=== PATIENT | female | born 1955 | race Caucasian/White ===

== ENCOUNTER 2022-04-13 06:58 | Inpatient (IN) | payer OTHER, SELFPAY ==
[2022-04-12] MEDS: ERTAPENEM 1 GM inj IVP (09:00)
[2022-04-13] VITALS (25 sets, daily range): BP systolic 74–104; BP diastolic 37–68; PULSE 77–99; RESP 12–20; TEMP 36.5–37.3; O2SAT 89–97; BMI 19.9
[2022-04-13] MEDS: LACTATED RINGERS 1000 ML 1,000 ML 100 ML IV ×4 (07:00→18:22)
[2022-04-13] MEDS: SODIUM CHLORIDE 0.9 % (FLUSH) 10 ML SYRINGE IVF (08:04)
--- NOTE | 2022-04-13 08:50 | P.GSOP_ITS ---
Operative Note Date of procedure: 04/13/22 Type of Procedure: 1. Laparoscopic right hemicolectomy. 2. Laparoscopic takedown of hepatic flexure. 3. Extensive laparoscopic lysis of adhesions. Procedure Description: After discussing the risks and benefits of the procedure, the patient signed informed consent.? The operative site was marked and the patient was brought to the operating room and placed on the operating table in supine position.? Care was taken to pad the patient's pressure points.?? The patient was then intubated by anesthesia.??Newton catheter was placed under sterile conditions. The operative site was then prepped and draped in the usual sterile fashion.? A time-out was then performed. A 5-mm laparoscopy port was placed in the left upper quadrant guided by a 5-mm laparoscope placed into a translucent trochar. Passage through the layers of the abdominal wall was visualized with the laparoscope. A pneumoperitoneum was established. A 30-degree 5-mm laparoscope was advanced into the abdomen. The abdomen was briefly surveyed, and adhesions were noted of the right colon to the lateral abdominal wall and omentum to the lower abdominal wall. A 12-mm port and a 5-mm port were placed in the left low quadrant and suprapubically, respectively, under direct visualization by laparoscope. Left upper quadrant entrance port was then examined intraabdominally by placing the camera through the left lower quadrant port and no intraabdominal injury was seen. An additional 5 mm port was placed in the right upper abdomen under direct visualization. I first started with lysis of adhesions. Omentum adherent to the lower abdomi nal wall in the midline and on the left was taken down with Harmonic scalpel. The right colon was adherent to the right side of the abdominal wall as well and those adhesions were taken down with Harmonic scalpel. The cecum was identified and retracted right laterally. Patient's transverse colon was redundant and was adherent to the cecum and ascending colon with adhesions. Those adhesions were taken down with Metzenbaum scissors and Harmonic scalpel to mobilize the transverse colon of the cecum and ascending colon. Tattoo was noted in the proximal transverse from previous polypectomy. The terminal ileum was tightly adherent to the lateral abdominal wall and those adhesions were taken down with Metzenbaum scissors and Harmonic scalpel. Care was taken not to injure the right ureter. The ureter was visualized and was away from out dissection. Once I was able to clearly identify the cecum and the right colon, I proceeded with the medial to lateral dissection. The cecum was grasped and retracted towards the abdominal wall. The ileocolic vascular pedicle was identified and skeletonized from the mesenteric fat with Harmonic scalpel. The ileocolic vessels were then stapled with a vascular staple load of Endo-SAMANTHA stapler. No bleeding was seen from the staple line. Dissection was then carried towards the liver. Colonic mesentery was divided with Harmonic scalpel until the inferior portion of the hepatic flexure of the colon was reached. We then proceeded with mobilizing the colon from the liver. Multiple dense adhesions were seen from patient's prior laparoscopic cholecystectomy. The transverse colon and hepatic flexure were reflected caudad and adhesions were taken down with Harmonic scalpel. Duodenum was identified during this dissection and care was taken not to injure it. When the transverse colon and hepatic flexure were fairly mobile and dissected of retroperitoneum, we then extended our dissection from the hepatic flexure towards the cecum along the lateral abdominal wall. This was done with Harmonic scalpel. When the colon was mobile, I turned my attention to the terminal ileum. The terminal ileum was somewhat adherent to the lateral abdominal wall but the rest of the small intestine was fairly free and mobile. Enough length of the terminal ileum was seen to be available for extracorporeal anastomosis, and we decided to proceed extra abdominally. The patient was flattened and a right paramedian incision was made with a scalpel. Anterior fascia was divided with cautery. Rectus muscle was retracted medially and laterally and about a third of visualized muscle was divided with cautery. Posterior sheath and peritoneum were grasped and the abdomen was entered with cautery. The abdomen was then deflated. The Franck retractor was placed into the incision. The dissected right colon and cecum were exteriorized. The right colon was very mobile. However, the terminal ileum was taut and appeared to be adherent to the lateral abdominal wall. We attempted to mobilize the terminal ileum from the lateral abdominal wall through the paramedian incision but that was difficult due to the location of the incision and the location of the adhesions. We elected to use a GelPort to cover our paramedian incision and proceed again with intra-abdominal lysis of adhesions. The Gelport was placed over the Franck retractor on the right side. Abdomen was insufflated. The small bowel was examined and terminal ileum appeared to be tethered by peritoneal adhesions. These adhesions extended towards the right fallopian tube and into the pelvis. Those adhesions were taken down mostly with Metzenbaum scissors but also with Harmonic scalpel. Care was taken to avoid creating injury to the right ureter. Small bowel mesentery near the cecum was also tethering the terminal ileum. A 5 mm clip was used on the patient's side and this mesentery was divided with Harmonic scalpel. Overall lysis of adhesions during this case took over 1.5 hours. The abdomen was deflated and the cecum was again exteriorized through the right- sided paramedian incision. Adequate length of the terminal ileum was now seen. We then proceeded with extracorporeal [id number] functional end-to-end anastomosis. Small bowel mesentery was divided with clamps and Vicryl ties. A blue load of SAMANTHA stapler was used to divide the terminal ileum and ascending colon at the level of hepatic flexure. The colon was divided distal to the colonic tattoo. Hepatic flexure of the colon and distal terminal ileum was then lined up for anastomosis. An enterotomy was made near the staple line with cautery. A colotomy was also made near the staple line with cautery. The handles of the SAMANTHA stapler were advanced into the small intestine and colon. The [id number] anastomosis was then made with the 100 blue load of SAMANTHA stapler. The staple line was examined from the inside and no active bleeding was seen. The common enterotomy was then closed with interrupted 3-0 silk pop- off sutures using Lembert sutures. A crotch stitch was placed with 3-0 silk suture as well. The anastomosis was palpated and was patent. Anastomosis appeared well perfused. The anastomosis was then placed into the abdomen. All the dirty instruments and towels were removed. The Franck retractor was removed. The surgeon and assistants changed gloves to new gloves. We then proceeded with abdominal closure. The peritoneum of paramedian incision was closed with 2 running 0-0 Vicryl sutures. The anterior fascia was then closed with 2 running 0-0 Maxon sutures. Moist Ray-Danielle was placed into the right paramedian incision. The abdomen was then insufflated again. The anastomosis was examined intra-abdominally. No bleeding was identified from anastomosis. It appeared to be well perfused. The abdomen was irrigated and no significant bleeding was noted in the surgical site. Omentum was placed over the right-sided abdomen and over anastomosis. The fascia of the left lower quadrant 12 mm port incision was closed with 0-0 Vicryl sutures with Geovanny- Vitaly needle under direct visualization. The 5 mm ports were removed under direct visualization and pneumoperitoneum was reduced through a left upper quadrant incision. The moist Ray-Danielle was removed from the right paramedian incision. The dermis of the right paramedian incision was closed with interrupted 3-0 Vicryl sutures. The skin of all incisions was closed with 4-0 Monocryl stitches. The right paramedian incision was covered with gauze and tape. All counts were correct at the end of the case. The patient tolerated this procedure well and was transferred to PACU in stable condition. Findings: Multiple adhesions of omentum, right colon, and ascending colon to transverse colon. Anesthesia: GETA Surgeon: Magda Hartman MD Estimated blood loss (mL): 50 Condition: stable Disposition: PACU
--- NOTE | 2022-04-13 09:11 | P.NB_ITS ---
Nerve Block Nerve Block Time Seen by Provider: 08:55 Date Seen: 04/13/22 Type of block requested by surgeon for post-operative analgesia: TAP Side: bilateral Time out performed: Yes Verification of patient name: Yes Verification of date of : Yes Site marking: site marked Name of person performing procedure: nicole Assistants, if any: Arnie Continuous monitoring Was continuous monitoring of O2 sat, B/P, director of cardiac rehabilitation, recorded every 15 minutes?: Yes Procedure Checklist: sterile prep and needles Ultrasound guided. Images saved: Yes Medications given in 5ml increments after negative aspiration: Marcaine %: 0.25 mL: 30 Needle gauge: 22 and Exparel mL: 10 Patient tolerated procedure well: Yes
[2022-04-13] MEDS: BUPIVACAINE 0.25% 30 ML INJECTION (09:30)
--- NOTE | 2022-04-13 10:25 | SUR.OPER ---
FAMILY UPDATED HOURLY
--- NOTE | 2022-04-13 10:43 | SUR.OPER ---
ULTRASOUND-GUIDED BLOCK PERFORMED PRIOR TO START OF PROCEDURE PER ANESTHESIA
--- NOTE | 2022-04-13 13:52 | W.ANESCHARGE ---
Anesthesia Charges Start Date/Time Anesthesia Start Date: 04/13/22 Anesthesia Start Time: 08:45 Stop Date/Time Anesthesia Stop Date: 04/13/22 Anesthesia Stop Time: 13:50 Summary Emergency: No
[2022-04-13] MEDS: fentaNYL 100 MCG/2 ML inj 50 MCG IVP (14:17)
[2022-04-13] MEDS: PHENYLEPHRINE 100 MCG/ML SYRINGE IVP (14:43)
--- NOTE | 2022-04-13 15:17 | PC.NURSE ---
Pt arrived via hospital bed to room 259 s/p laparoscopic hemicolectomy with Dr. Hartman at 15:05 pm. Pt awake, alert, oriented and sitting up in bed, oxygen @ 3L/NC. Initial VS taken and pt rating her pain 5 out of 10. It was 7 out of 10 prior to 2 doses of fentanyl given by WIRE THREADER prior to transport to med/surg. Bedside report given to Melva METCALF for evening shift. Dtrs Jenni and Enrique present at bedside. Newton to DD with clear yellow urine draining into the bag. Pt remains NPO. Swabs and mouth moisturizer provided for dry mouth as a comfort measure per Melva Metz RN. Pt states her dtr Patience will be coming later to spend the night with her in the hospital. Continue post op plan of care.
--- NOTE | 2022-04-13 15:22 | SUR.PHASEI ---
PATIENT MET PACU DISCHARGE CRITERIA PER ANESTHESIA. ANESTHESIA AWARE OF LOW BP, INSTRUCTED TO GIVE DOSE OF PHENYLEPHRINE; DOSE GIVEN IN PACU
--- NOTE | 2022-04-13 15:29 | PC.NURSE ---
IRRIGATED WITH 0.9%NACL
[2022-04-13] MEDS: HYDROmorphone 0.5 mg/0.5 ml inj IVP ×3 (15:47→21:10)
[2022-04-13] MEDS: BUDESONIDE 0.5 MG/2ML NEB NEB (18:24)
[2022-04-13] MEDS: IPRAT-ALBUT 0.5-2.5 MG/3 ML NEB 1 NEB IH ×2 (18:24→21:12)
[2022-04-13] MEDS: NICOTINE 21 MG PATCH 1 PATCH TRANSDERMA (19:29)
--- NOTE | 2022-04-13 22:46 | P.IMCN_ITS ---
Date of Consult Patient: [facility] Patient Consult date: 04/13/22 Requesting Physician: General Surgery Primary Care Provider: Robert Riley MD Consult Narrative Reason for consult: Help manage COPD postoperatively Narrative: Bianca Wang is a 66 year old woman who undergoes a hemicolectomy electively today due to unresectable cecal polyps by endoscopic means. Her general surgeon requests help from the hospitalist in managing the patient's COPD postoperatively. Patient takes her prescribed COPD medications as noted below. Additionally she uses as needed albuterol metered-dose inhaler. Noteworthy is that she does not use an information systems administrator with her metered dose inhaler. Uses her rescue haler 1-3 times daily. Continues to smoke 1/2 pack of cigarettes daily. Has smoked for decades. Acknowledges baseline dyspnea with moderate exertion. Has increased shortness of breath on hot humid days as well. No recent respiratory illness. Denies change in her baseline level of cough. Denies chest heaviness, pressure, tightness, or pain. No recent fevers, rigors, diaphoresis. Review of Systems Status of ROS: Reports: 10 or more systems reviewed and unremarkable except as noted in History and below [facility] Medical History (Updated 04/13/22 @ 22:58 by Haider Puri MD) Chronic obstructive pulmonary disease Depression Gastroesophageal reflux disease History of migraine Hyperlipidemia Polyp of ascending colon Tobacco dependence Surgical History H/O: section History of umbilical hernia repair S/P tubal ligation Status post appendectomy (2004) Status post laparoscopic cholecystectomy (03/07/18) Family History Father Type 2 diabetes mellitus Brother Type 2 diabetes mellitus Social History Narrative: Single, 3 kids, retired 1/2 ppd smoker Social EtOH retired Smoking Status: Current every day smoker What tobacco products do you use: cigarettes Do you use any of these nicotine containing products: None How often do you have a drink containing alcohol: monthly or less How many standard drinks containing alcohol do you have on a typical day: 1 or 2 AUDIT-C Alcohol total score: 1 Non-prescribed substance use: denies use Caffeine: Yes service: No Meds Home Medications and Allergies Home Medications Medication Instructions Recorded Confirmed Type albuterol sulfate 90 mcg/actuation 2 inh INHALATION Q4-6H PRN 03/24/22 04/12/22 History aerosol inhaler celecoxib 200 mg capsule 200 mg PO BID 03/24/22 04/13/22 History duloxetine 60 mg capsule,delayed 60 mg PO DAILY 03/24/22 04/13/22 History release ergocalciferol (vitamin D2) 1,250 50,000 unit PO .Once Weekly cap 03/24/22 04/13/22 History mcg (50,000 unit) capsule famotidine 20 mg tablet 20 mg PO BID PRN tab 03/24/22 04/13/22 History fluoxetine 40 mg capsule 40 mg PO DAILY 03/24/22 04/13/22 History fluticasone 500 mcg-salmeterol 50 1 inh INHALATION BID 03/24/22 04/12/22 History mcg/dose blistr powdr for inhalation lorazepam 1 mg tablet 1 mg PO BID PRN tab 03/24/22 04/13/22 History tiotropium bromide 18 mcg capsule 18 mcg INHALATION DAILY 03/24/22 04/13/22 History with inhalation device Allergies Allergy/AdvReac Type Severity Reaction Status Date / Time cefadroxil Allergy Severe anaphylacic Verified 04/13/22 07:13 shock bupropion Allergy Intermediate increased Verified 04/13/22 07:13 depression and shaking Erythromycin Allergy Intermediate stomach Uncoded 04/13/22 07:13 upset Exam Narrative: Exam Narrative: I examined the patient in her hospital room postoperatively. She is resting in her hospital bed with the head of the bed elevated about 45?. She holds a pillow to her abdomen. Her cough is shallow. Does have loose sounding airway material. Appears thin. Bony prominences of face and chest. At rest she is in no acute distress. Alert, oriented to self, place, time, situation. Hard of hearing in left ear compared to the right. Lungs with decreased breath sounds in the bases and prolonged expiratory phase and scattered rhonchi and wheezing without rales. No CVA tenderness. Heart tones with regular rhythm, normal S1-S2. Abdomen is thin and quiet. Extremities without edema. Able to transfer self from semi recumbent position to sitting at the side of the bed. 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 Const: Vital Signs, click to edit/add: Vital Signs - 24 hr 04/13/22 07:47 04/13/22 13:47 04/13/22 13:55 Temperature 99.2 F 98.9 F Pulse Rate 99 90 92 Pulse Rate [Left P ulse Oximeter] Respiratory Rate 20 18 14 Blood Pressure 100/68 104/59 L 96/42 L Blood Pressure [Le ft Arm] Pulse Oximetry 97 90 04/13/22 14:00 04/13/22 14:10 04/13/22 14:15 Temperature Pulse Rate 95 90 89 Pulse Rate [Left P ulse Oximeter] Respiratory Rate 14 12 14 Blood Pressure 89/37 L 85/49 L 89/50 L Blood Pressure [Le ft Arm] Pulse Oximetry 89 92 92 04/13/22 14:20 04/13/22 14:25 04/13/22 14:30 Temperature Pulse Rate 87 86 87 Pulse Rate [Left P ulse Oximeter] Respiratory Rate 14 14 16 Blood Pressure 85/51 L 84/48 L 87/49 L Blood Pressure [Le ft Arm] Pulse Oximetry 90 90 91 04/13/22 14:35 04/13/22 14:40 04/13/22 14:45 Temperature Pulse Rate 82 83 80 Pulse Rate [Left P ulse Oximeter] Respiratory Rate 14 14 12 Blood Pressure 84/49 L 74/47 L 89/53 L Blood Pressure [Le ft Arm] Pulse Oximetry 89 94 94 04/13/22 14:50 04/13/22 15:00 04/13/22 15:15 Temperature 97.7 F Pulse Rate 82 81 Pulse Rate [Left P ulse Oximeter] 80 Respiratory Rate 12 14 14 Blood Pressure 81/49 L Blood Pressure [Le ft Arm] 82/50 L Pulse Oximetry 93 93 04/13/22 15:30 04/13/22 15:45 04/13/22 16:00 Temperature Pulse Rate Pulse Rate [Left P ulse Oximeter] 79 79 81 Respiratory Rate 14 14 14 Blood Pressure Blood Pressure [Le ft Arm] 90/44 L 84/49 L 89/51 L Pulse Oximetry 92 92 92 04/13/22 16:15 04/13/22 16:30 04/13/22 17:00 Temperature 97.9 F Pulse Rate Pulse Rate [Left P ulse Oximeter] 77 79 79 Respiratory Rate 14 14 14 Blood Pressure Blood Pressure [Le ft Arm] 88/51 L 86/53 L 88/57 L Pulse Oximetry 95 92 92 04/13/22 17:30 Temperature Pulse Rate Pulse Rate [Left P ulse Oximeter] 77 Respiratory Rate 14 Blood Pressure Blood Pressure [Le ft Arm] 95/57 L Pulse Oximetry 95 Labs Labs: I reviewed the preoperative laboratory studies. White count was 9.7, hemoglobin 14.2, hematocrit 44, platelet count 293. She had an entirely normal comprehensive metabolic panel. SARS-CoV-2 PCR was negative. Assessment and Plan Assessment and plan (1) Polyp of ascending colon: Problem comment: Unresectable endoscopically. Status post right hemicolectomy 04/13/2022. Status: Acute (2) Chronic obstructive pulmonary disease: Problem comment: not on O2 Status: Acute Assessment and Plan: Will follow with General surgery while patient is in hospital. Continue with her Spiriva and Advair inhalers. Changed from albuterol inhaler p.r.n. to albuterol nebulizer scheduled q.i.d. and p.r.n. while in hospital. Pulmonary hygiene efforts with assistance from respiratory therapy. (3) Tobacco dependence: Status: Acute Assessment and Plan: Nicotine patch and nicotine inhalers while in hospital. Patient pre contemplative regarding smoking cessation. (4) Gastroesophageal reflux disease: Status: Acute (5) Generalized anxiety disorder: Status: Acute (6) Fibromyalgia: Status: Acute (7) Irritable bowel syndrome: Status: Acute Plan 1. Reviewed with patient and 2 daughters. Answered their questions. They are agreeable.
[2022-04-14] VITALS (7 sets, daily range): BP systolic 92–103; BP diastolic 50–58; PULSE 86–101; RESP 16–20; TEMP 36.4–36.9; O2SAT 90–98
[2022-04-14] MEDS: HYDROmorphone 0.5 mg/0.5 ml inj IVP ×6 (00:02→20:05)
[2022-04-14] MEDS: LACTATED RINGERS 1000 ML 1,000 ML 100 ML IV ×3 (03:46→23:42)
[2022-04-14] MEDS: ALBUTEROL SULFATE 2.5 MG/3 ML VIAL.NEB NEB (05:57)
[2022-04-14] MEDS: ONDANSETRON 2 MG/ML inj IVP ×2 (06:02→15:34)
[2022-04-14 07:25] LABS: Chloride* 103 mmol/L (96-114); Potassium* 4.1 mmol/L (3.6-5.1); Sodium* 134 mmol/L (135-149)
[2022-04-14 07:26] LABS: Basophils Percent Auto 0.1 % (0.0-3.0); Eosinophils Percent Auto 0.1 % (0.0-7.0); Hematocrit 36.3 % (33.0-51.0); Hemoglobin* 11.7 gm/dL (12.0-16.0); Immature Granulocytes Abs Auto 0.03 K/uL (0.00-0.30); Lymphocytes Percent Auto 19.7 % (20-44); Mean Corpuscular HGB Conc 32 gm/dL (32-36); Mean Corpuscular Hemoglobin 30 pg (26-34); Mean Corpuscular Volume 94 fL (80-100); Monocytes Percent Auto 6.2 % (0.0-11.0); Neutrophils Percent Auto 73.7 % (42.0-72.0); Platelet Count* 228 K/uL (140-440); RDW Coefficient of Variation % 13.9 % (11.5-15.5); Red Blood Count 3.87 m/uL (4.00-5.20); White Blood Count* 13.75 K/uL (4.50-11.00)
[2022-04-14 07:27] LABS: Creatinine* 0.7 mg/dL (0.5-1.5); Estimated Glomerular Filt Rate 94 ml/min
[2022-04-14 07:28] LABS: Blood Urea Nitrogen* 12 mg/dL (7-30); Carbon Dioxide* 29 mmol/L (20-32); Glucose* 131 mg/dL (60-115)
[2022-04-14 07:31] LABS: Slide Review Reflex No
[2022-04-14] MEDS: DULOXETINE 30 MG CAPSULE DR 60 MG PO (10:12)
[2022-04-14] MEDS: FLUOXETINE HCL 20 MG CAPSULE 40 MG PO (10:13)
[2022-04-14] MEDS: IPRAT-ALBUT 0.5-2.5 MG/3 ML NEB 1 NEB IH ×3 (10:13→21:05)
--- NOTE | 2022-04-14 10:42 | PM.IMPN1 ---
Progress Note: A&P Assessment and plan (1) Polyp of ascending colon: Problem details: Unresectable endoscopically. Status post right hemicolectomy 04/13/2022. Status: Acute Assessment and Plan: Appears to be healing well will continue follow general surgery making sure that she is has adequate DVT prophylaxis. (2) Chronic obstructive pulmonary disease: Problem details: not on O2 at home. Status: Acute Assessment and Plan: Will continue to wean down her oxygen and provide good pulmonary toilet. (3) Tobacco dependence: Status: Acute Assessment and Plan: Continue nicotine supplementation. (4) Gastroesophageal reflux disease: Status: Acute Assessment and Plan: No complaints today. (5) Generalized anxiety disorder: Status: Acute Assessment and Plan: Anxiety appears to be under good control. (6) Fibromyalgia: Status: Acute Assessment and Plan: Continue to manage as an outpatient. (7) Irritable bowel syndrome: Status: Acute Assessment and Plan: No complaints today. Subjective Time Seen by Provider: 10:42 Date Seen: 04/14/22 Interval history: Patient is a 66-year-old woman who underwent elective right hemicolectomy secondary to unresectable cecal polyps. By all accounts he seems to be doing fairly well. She does have underlying COPD is on 3 L of oxygen which I do think we can wean down. She is receiving nicotine supplementation. She has no GERD her anxiety complaints. Overall she is making good progress. Exam Narrative: Exam Narrative: EXAM GENERAL: Patient appears comfortable and well. EYES: No scleral icterus. LYMPH: No supraclavicular or cervical lymphadenopathy. SKIN: Visible skin seen during exam normal or with benign process only. EXT: No dependent lower extremity pedal edema. HEART: Regular rate and rhythm with no murmurs, rubs, or gallops. LUNGS: Clear to auscultation bilaterally with no crackles or wheezes. ABD: Hypoactive bowel sounds with incisions appearing to be clean and dry. PSYCH: Good eye contact, speech is not pressured. Const: Vital Signs, click to edit/add: Vital Signs - 24 hr 04/13/22 13:47 04/13/22 13:55 04/13/22 14:00 Temperature 98.9 F Pulse Rate 90 92 95 Pulse Rate [Left P ulse Oximeter] Respiratory Rate 18 14 14 Blood Pressure 104/59 L 96/42 L 89/37 L Blood Pressure [Le ft Arm] Pulse Oximetry 97 90 89 07/19/22 14:10 04/13/22 14:15 04/13/22 14:20 Temperature Pulse Rate 90 89 87 Pulse Rate [Left P ulse Oximeter] Respiratory Rate 12 14 14 Blood Pressure 85/49 L 89/50 L 85/51 L Blood Pressure [Le ft Arm] Pulse Oximetry 92 92 90 04/13/22 14:25 04/13/22 14:30 04/13/22 14:35 Temperature Pulse Rate 86 87 82 Pulse Rate [Left P ulse Oximeter] Respiratory Rate 14 16 14 Blood Pressure 84/48 L 87/49 L 84/49 L Blood Pressure [Le ft Arm] Pulse Oximetry 90 91 89 04/13/22 14:40 04/13/22 14:45 04/13/22 14:50 Temperature Pulse Rate 83 80 82 Pulse Rate [Left P ulse Oximeter] Respiratory Rate 14 12 12 Blood Pressure 74/47 L 89/53 L 81/49 L Blood Pressure [Le ft Arm] Pulse Oximetry 94 94 93 04/13/22 15:00 04/13/22 15:15 04/13/22 15:30 Temperature 97.7 F Pulse Rate 81 Pulse Rate [Left P ulse Oximeter] 80 79 Respiratory Rate 14 14 14 Blood Pressure Blood Pressure [Le ft Arm] 82/50 L 90/44 L Pulse Oximetry 93 92 04/13/22 15:45 04/13/22 16:00 04/13/22 16:15 Temperature Pulse Rate Pulse Rate [Left P ulse Oximeter] 79 81 77 Respiratory Rate 14 14 14 Blood Pressure Blood Pressure [Le ft Arm] 84/49 L 89/51 L 88/51 L Pulse Oximetry 92 92 95 04/13/22 16:30 04/13/22 17:00 04/13/22 17:30 Temperature 97.9 F Pulse Rate Pulse Rate [Left P ulse Oximeter] 79 79 77 Respiratory Rate 14 14 14 Blood Pressure Blood Pressure [Le ft Arm] 86/53 L 88/57 L 95/57 L Pulse Oximetry 92 92 95 04/13/22 19:00 04/13/22 20:00 04/13/22 23:00 Temperature 98.4 F Pulse Rate Pulse Rate [Left P ulse Oximeter] 82 81 89 Respiratory Rate 14 16 16 Blood Pressure Blood Pressure [Le ft Arm] 85/50 L 94/52 L 101/50 L Pulse Oximetry 95 95 95 04/14/22 03:00 Temperature 98.2 F Pulse Rate Pulse Rate [Left P ulse Oximeter] 93 Respiratory Rate 16 Blood Pressure Blood Pressure [Le ft Arm] 94/52 L Pulse Oximetry 96 Labs Labs: Laboratory Results - last 24 hr 04/14/22 04/14/22 06:26 06:26 WBC 13.75 H RBC 3.87 L Hgb 11.7 L Hct 36.3 MCV 94 MCH 30 MCHC 32 RDW Coeff of Riri 13.9 Plt Count 228 Neut % (Auto) 73.7 H Lymph % (Auto) 19.7 L [place] % (Auto) 6.2 Eos % (Auto) 0.1 Baso % (Auto) 0.1 Neut # (Auto) 10.10 H Lymph # (Auto) 2.70 [place] # (Auto) 0.90 Eos # (Auto) 0.00 Baso # (Auto) 0.00 Abs Immat Gran (auto) 0.03 Sodium 134 L Potassium 4.1 Chloride 103 Carbon Dioxide 29 BUN 12 Creatinine 0.7 Estimated Creat Clear 44.80 Estimated GFR 94 Glucose 131 H Calcium 8.0 L
[2022-04-14] MEDS: LORazepam 1 MG TABLET PO (11:30)
--- NOTE | 2022-04-14 13:13 | PM.GSPN ---
Subjective Subjective Date Seen: 04/14/22 Interval history: Patient is doing well. She complains of dominant pain but that is controlled with pain medication. She had some nausea but no vomiting. She did not ambulate today. Her blood pressure was low normal throughout the night. She made adequate amount of urine. Exam Narrative: Exam Narrative: Abdomen: Soft, not distended, tender to palpation Throughout, there is ecchymosis inferior to suprapubic and left lower quadrant incisions as well as right paramedian incision. There is no expanding hematoma. Const: Vital Signs, click to edit/add: Vital Signs - 24 hr 04/13/22 13:47 04/13/22 13:55 04/13/22 14:00 Temperature 98.9 F Pulse Rate 90 92 95 Pulse Rate [Left P ulse Oximeter] Respiratory Rate 18 14 14 Blood Pressure 104/59 L 96/42 L 89/37 L Blood Pressure [Le ft Arm] Pulse Oximetry 97 90 89 04/13/22 14:10 04/13/22 14:15 04/13/22 14:20 Temperature Pulse Rate 90 89 87 Pulse Rate [Left P ulse Oximeter] Respiratory Rate 12 14 14 Blood Pressure 85/49 L 89/50 L 85/51 L Blood Pressure [Le ft Arm] Pulse Oximetry 92 92 90 04/13/22 14:25 04/13/22 14:30 04/13/22 14:35 Temperature Pulse Rate 86 87 82 Pulse Rate [Left P ulse Oximeter] Respiratory Rate 14 16 14 Blood Pressure 84/48 L 87/49 L 84/49 L Blood Pressure [Le ft Arm] Pulse Oximetry 90 91 89 04/13/22 14:40 04/13/22 14:45 04/13/22 14:50 Temperature Pulse Rate 83 80 82 Pulse Rate [Left P ulse Oximeter] Respiratory Rate 14 12 12 Blood Pressure 74/47 L 89/53 L 81/49 L Blood Pressure [Le ft Arm] Pulse Oximetry 94 94 93 04/13/22 15:00 04/13/22 15:15 04/13/22 15:30 Temperature 97.7 F Pulse Rate 81 Pulse Rate [Left P ulse Oximeter] 80 79 Respiratory Rate 14 14 14 Blood Pressure Blood Pressure [Le ft Arm] 82/50 L 90/44 L Pulse Oximetry 93 92 04/13/22 15:45 04/13/22 16:00 04/13/22 16:15 Temperature Pulse Rate Pulse Rate [Left P ulse Oximeter] 79 81 77 Respiratory Rate 14 14 14 Blood Pressure Blood Pressure [Le ft Arm] 84/49 L 89/51 L 88/51 L Pulse Oximetry 92 92 95 04/13/22 16:30 04/13/22 17:00 04/13/22 17:30 Temperature 97.9 F Pulse Rate Pulse Rate [Left P ulse Oximeter] 79 79 77 Respiratory Rate 14 14 14 Blood Pressure Blood Pressure [Le ft Arm] 86/53 L 88/57 L 95/57 L Pulse Oximetry 92 92 95 04/13/22 19:00 04/13/22 20:00 04/13/22 23:00 Temperature 98.4 F Pulse Rate Pulse Rate [Left P ulse Oximeter] 82 81 89 Respiratory Rate 14 16 16 Blood Pressure Blood Pressure [Le ft Arm] 85/50 L 94/52 L 101/50 L Pulse Oximetry 95 95 95 04/14/22 03:00 Temperature 98.2 F Pulse Rate Pulse Rate [Left P ulse Oximeter] 93 Respiratory Rate 16 Blood Pressure Blood Pressure [Le ft Arm] 94/52 L Pulse Oximetry 96 Labs/Imaging Labs Labs: Hemoglobin 11.7. Creatinine normal. Progress Note: A&P Assessment and plan (1) Polyp of ascending colon: Problem details: 66-year-old female Status post right hemicolectomy 04/13/2022 POD 1. Status: Acute Assessment and Plan: Patient is doing well. We will DC her Newton catheter. She can take ice chips for comfort. I asked the patient to ambulate today at least 3 times. I will not put her no Lovenox today since she has prominent ecchymosis near her abdominal wall incisions. Her blood pressure normally runs systolic 90-110 so her blood pressure is are not out of the norm. She made adequate amount of urine and her creatinine is normal today. Will continue with NPO status until her nausea improves. (2) Chronic obstructive pulmonary disease: Problem details: not on O2 at home. Status: Acute (3) Tobacco dependence: Status: Acute (4) Gastroesophageal reflux disease: Status: Acute (5) Generalized anxiety disorder: Status: Acute (6) Fibromyalgia: Status: Acute (7) Irritable bowel syndrome: Status: Acute
--- NOTE | 2022-04-14 16:19 | PC.NURSE ---
Pt has supportive daughters at bedside. Oxygen tapered to 2L/NC on day shift. Eval by Dr. Hartman who ordered Ativan 1mg BID for pt's chronic anxiety. BP's remain low normal. Nursing will continue to monitor BP, pt denies dizziness, CP or SOB. Pt walked in hallway with oxygen @2L/NC this afternoon. Pt remains NPO, ice chips sparingly. Pt has hearing impairment in the left ear. Please see eMar for medications provided to this patient for pain management. Report to Melva SILVEIRA for evening shift. Newton discontinued. Pt has not voided since catheter removed. Oncoming shift will monitor pt for urine output.
[2022-04-14] MEDS: NICOTINE 21 MG PATCH 1 PATCH TRANSDERMA (18:28)
[2022-04-14] MEDS: FLUTICASONE PROPION SALMETEROL 1 EACH IH (21:05)
--- NOTE | 2022-04-14 22:37 | PC.NURSE ---
Shift [id number]- Patient rates pain at 6/10 throughout shift (I always rate it a 6), though she does state pain is increased with movement. Pain appears well controlled with PRN pain medications and ice. She is up with assist of 1 and gait belt, steady. She is voiding small amounts tonight. Remains on oxygen via nasal cannula, requiring 1.5-2.5L to maintain saturations.
[2022-04-15] MEDS: HYDROmorphone 0.5 mg/0.5 ml inj IVP ×4 (00:05→11:46)
[2022-04-15] MEDS: ONDANSETRON 2 MG/ML inj IVP ×2 (00:06→08:44)
[2022-04-15] MEDS: LORazepam 1 MG TABLET PO (00:07)
[2022-04-15 03:00] VITALS: BP 101/54; PULSE 98; RESP 20; TEMP 36.9; O2SAT 93
--- NOTE | 2022-04-15 06:27 | PC.NURSE ---
END OF SHIFT NOTE: PT PLEASANT AND COOPERATIVE. SOFT BP'S; ASYMPTOMATIC. VSS. PT DENIES CHEST PAIN, SOB, N/V. PT C/O PAIN 5-6/10 AT ABDOMINAL INCISION SITES, THAT IS RELIEVED WITH THE ADMINISTRATION OF DILAUDID. ABDOMINAL DRESSING IN PLACE, 3 LAP SITES INTACT WITH STERI STRIPS. PT NPO. CHIPS ALLOWED, WATER TO SWISH AND SPIT. PT DENIES PASSING GAS. BS HYPOACTIVE. PT AMBULATES WITH GB AND A1/SBA. [place] IN LEFT EAR. PT ON 2.5L VIA NC TO MAINTAIN SATS >90%. EXPIRATORY WHEEZES NOTED THROUGHOUT ANTERIOR AND POSTERIOR LOBES.
[2022-04-15 07:00] VITALS: BP 97/57; PULSE 95; PULSE 97; RESP 20; TEMP 36.8; O2SAT 92
[2022-04-15 07:19] LABS: Basophils Percent Auto 0.1 % (0.0-3.0); Eosinophils Percent Auto 0.1 % (0.0-7.0); Hematocrit 33.6 % (33.0-51.0); Hemoglobin* 10.6 gm/dL (12.0-16.0); Immature Granulocytes Abs Auto 0.07 K/uL (0.00-0.30); Lymphocytes Percent Auto 19.4 % (20-44); Mean Corpuscular HGB Conc 32 gm/dL (32-36); Mean Corpuscular Hemoglobin 30 pg (26-34); Mean Corpuscular Volume 96 fL (80-100); Monocytes Percent Auto 5.6 % (0.0-11.0); Neutrophils Percent Auto 74.2 % (42.0-72.0); Platelet Count* 197 K/uL (140-440); RDW Coefficient of Variation % 14.2 % (11.5-15.5); Red Blood Count 3.52 m/uL (4.00-5.20); White Blood Count* 11.53 K/uL (4.50-11.00)
[2022-04-15 07:44] LABS: Albumin* 3.3 g/dL (3.3-5.0)
[2022-04-15 07:45] LABS: Chloride* 102 mmol/L (96-114); Potassium* 3.9 mmol/L (3.6-5.1); Sodium* 134 mmol/L (135-149)
[2022-04-15 07:47] LABS: Aspartate Amino Transferase* 42 U/L (12-35); Bilirubin Total* 0.3 mg/dL (0.1-1.5); Carbon Dioxide* 32 mmol/L (20-32); Creatinine* 0.7 mg/dL (0.5-1.5); Estimated Glomerular Filt Rate 94 ml/min; Total Protein* 6.2 g/dL (6.0-8.3)
[2022-04-15 07:48] LABS: Alanine Aminotransferase* 23 U/L (4-35); Alkaline Phosphatase* 72 U/L (40-150); Blood Urea Nitrogen* 14 mg/dL (7-30); Calcium* 8.1 mg/dL (8.4-10.6); Glucose* 122 mg/dL (60-115)
[2022-04-15 08:20] LABS: Slide Review Reflex No
[2022-04-15] MEDS: DULOXETINE 30 MG CAPSULE DR 60 MG PO (08:39)
[2022-04-15] MEDS: FLUOXETINE HCL 20 MG CAPSULE 40 MG PO (08:39)
[2022-04-15] MEDS: IPRAT-ALBUT 0.5-2.5 MG/3 ML NEB 1 NEB IH ×4 (08:40→21:20)
[2022-04-15] MEDS: FLUTICASONE PROPION SALMETEROL 1 EACH IH ×2 (08:57→21:19)
--- NOTE | 2022-04-15 09:09 | P.IMPN_ITS ---
Progress Note: A&P Assessment and plan (1) Polyp of ascending colon: Problem details: 66-year-old female Status post right hemicolectomy 04/13/2022 POD 1. Status: Acute Assessment and Plan: Will continue follow general surgery providing supportive care. (2) Chronic obstructive pulmonary disease: Problem details: not on O2 at home. Status: Acute Assessment and Plan: Will continue pulmonary toilet and her outpatient medications. Patient is receiving nicotine supplementation. (3) Tobacco dependence: Status: Acute Assessment and Plan: Again continue nicotine supplementation. (4) Gastroesophageal reflux disease: Status: Acute Assessment and Plan: No complaints patient is doing well. (5) Generalized anxiety disorder: Status: Acute Assessment and Plan: Continue as per outpatient. (6) Fibromyalgia: Status: Acute Assessment and Plan: Continue as per outpatient. (7) Irritable bowel syndrome: Status: Acute Subjective Time Seen by Provider: 09:09 Date Seen: 04/15/22 Interval history: Patient is a 66-year-old woman who underwent elective right hemicolectomy secondary to unresectable cecal polyps. By all accounts he seems to be doing fairly well. We have been asked to see her to help with her COPD. She times can be on room air and at times needs 3 L of oxygen to maintain her saturation. Patient does not take supplemental oxygen at home. She has had no chest pain no cough no shortness of breaths in the hospital. Exam Narrative: Exam Narrative: EXAM GENERAL: Patient appears comfortable and well. EYES: No scleral icterus. LYMPH: No supraclavicular or cervical lymphadenopathy. SKIN: Visible skin seen during exam normal or with benign process only. EXT: No dependent lower extremity pedal edema. HEART: Regular rate and rhythm with no murmurs, rubs, or gallops. LUNGS: Clear to auscultation bilaterally with no crackles or wheezes. ABD: Soft, non tender, non distended. Wound is sterilely dressed. PSYCH: Good eye contact, speech is not pressured. Const: Vital Signs, click to edit/add: Vital Signs - 24 hr 04/14/22 13:00 04/14/22 15:15 04/14/22 19:03 Temperature 98.2 F 98.5 F 97.6 F Pulse Rate [Left P ulse Oximeter] 101 H 93 99 Respiratory Rate 20 16 18 Blood Pressure [Le ft Arm] 103/54 L 96/54 L 92/50 L Blood Pressure [Ri ght Arm] Pulse Oximetry 93 91 90 04/14/22 23:35 04/14/22 23:40 04/15/22 03:00 Temperature 98.5 F 98.4 F Pulse Rate [Left P ulse Oximeter] 99 99 98 Respiratory Rate 20 20 20 Blood Pressure [Le ft Arm] Blood Pressure [Ri ght Arm] 95/58 L 101/54 L Pulse Oximetry 97 93 Labs Labs: Laboratory Results - last 24 hr 04/15/22 04/15/22 06:28 06:28 WBC 11.53 H RBC 3.52 L Hgb 10.6 L Hct 33.6 MCV 96 MCH 30 MCHC 32 RDW Coeff of Riri 14.2 Plt Count 197 Neut % (Auto) 74.2 H Lymph % (Auto) 19.4 L [place] % (Auto) 5.6 Eos % (Auto) 0.1 Baso % (Auto) 0.1 Neut # (Auto) 8.60 H Lymph # (Auto) 2.20 [place] # (Auto) 0.60 Eos # (Auto) 0.00 Baso # (Auto) 0.00 Abs Immat Gran (auto) 0.07 Sodium 134 L Potassium 3.9 Chloride 102 Carbon Dioxide 32 BUN 14 Creatinine 0.7 Estimated Creat Clear 44.80 Estimated GFR 94 Glucose 122 H Calcium 8.1 L Total Bilirubin 0.3 AST 42 H ALT 23 Alkaline Phosphatase 72 Total Protein 6.2 Albumin 3.3
[2022-04-15] MEDS: LACTATED RINGERS 1000 ML 1,000 ML 100 ML IV (10:09)
[2022-04-15 10:36] VITALS: BP 97/57; PULSE 97; RESP 20; TEMP 36.8; O2SAT 97
--- NOTE | 2022-04-15 14:32 | PM.GSPN ---
Subjective Subjective Date Seen: 04/15/22 Interval history: Patient is doing well. She had brownish stool and passed some gas with that stool. She has not passed gas beyond that. She has intermittent nausea but no vomiting. She usually feels nauseous when she is having Dilaudid administered. She ambulated yesterday and today. Exam Narrative: Exam Narrative: Abdomen is soft, not distended, incisions are covered with Steri-Strips. There is significant mindy-incisional ecchymosis surrounding the right paramedian incision and lower abdominal incisions. Const: Vital Signs, click to edit/add: Vital Signs - 24 hr 04/14/22 15:15 04/14/22 19:03 04/14/22 23:35 Temperature 98.5 F 97.6 F 98.5 F Pulse Rate [Left P ulse Oximeter] 93 99 99 Respiratory Rate 16 18 20 Blood Pressure [Le ft Arm] 96/54 L 92/50 L Blood Pressure [Ri ght Arm] 95/58 L Pulse Oximetry 91 90 97 04/14/22 23:40 04/15/22 03:00 04/15/22 07:00 Temperature 98.4 F 98.3 F Pulse Rate [Left P ulse Oximeter] 99 98 95 Respiratory Rate 20 20 20 Blood Pressure [Le ft Arm] 97/57 L Blood Pressure [Ri ght Arm] 101/54 L Pulse Oximetry 93 92 04/15/22 10:36 Temperature 98.2 F Pulse Rate [Left P ulse Oximeter] 97 Respiratory Rate 20 Blood Pressure [Le ft Arm] 97/57 L Blood Pressure [Ri ght Arm] Pulse Oximetry 97 Labs/Imaging Labs Labs: Hemoglobin down to 10.6 from 11. Progress Note: A&P Assessment and plan (1) Polyp of ascending colon: Problem details: 66-year-old female Status post right hemicolectomy 04/13/2022 POD 2. Status: Acute Assessment and Plan: Overall patient is doing well. Her intervals between the pain medication are enlarging. Her blood pressure is low normal and that is normal for her. She continues to require oxygen 1-2 L to maintain her sats above 88. She does have a history of COPD. Her hemoglobin went down to 10.6 today from 11 yesterday. This is most likely a combination of acute blood loss anemia and dilution since patient received over 3 L of fluid yesterday. Will advance her diet to clear liquids. I discussed with the patient that she should advance slow since she has not been consistently passing gas. I will put her on Lovenox for DVT prophylaxis. I did discuss with the patient that one of my partners will be seeing her over the weekend. Pathology was discussed with the patient. Patient had 2 sessile serrated adenomas in her cecum and at appendiceal orifice but no evidence of cancer.
[2022-04-15] MEDS: LACTATED RINGERS 1000 ML 1,000 ML 75 ML IV ×2 (15:08→21:20)
[2022-04-15 16:00] VITALS: BP 99/57; PULSE 101; RESP 20; TEMP 36.7; O2SAT 92
[2022-04-15] MEDS: OxyCODONE/APAP 5-325 TABLET PO ×2 (16:30→23:40)
[2022-04-15] MEDS: ENOXAPARIN 40 MG/0.4 ML INJ SUBCUT (16:32)
[2022-04-15] MEDS: NICOTINE 21 MG PATCH 1 PATCH TRANSDERMA ×2 (18:26→18:30)
[2022-04-15 19:45] VITALS: BP 90/50; PULSE 100; RESP 20; TEMP 36.7; O2SAT 91
--- NOTE | 2022-04-15 20:21 | PC.NURSE ---
[id number]: Radha did well today with walks in halls. Monitored O2 during walk, sats 83-86% on 3L; Dr. Almazan updated. Attempted to titrate to 1L during the day, however periods when she needed 1-2L/NC to maintain sats >88%. Denies feeling symptomatic during times when O2 drops into 70s. Daughter and granddaughter visited today, pt. appreciated. Able to sleep off and on. Pain 2-6/10, switched to orals which seem to be helpful today. Ice to op site, dressing C/D/I. Denies calf pain, but notes overall soreness. Pt. was encouraged to get up and move about w/assist to help with this. Bowel sounds hypoactive this AM, but she did have two small liquid/sedimentary stools this shift. Some old blood noted during first BM; Dr. Hartman aware. IVF decreased to 75mL/hr, diet advanced to clears, tolerating well. Lung sounds wheezy and tight, receiving scheduled nebs w/relief.
--- NOTE | 2022-04-15 22:23 | PC.NURSE ---
Shift note 19-23: Pt alert, SBA to BR. Rating abd pain 2/10 taking PRN Percocet along w/ actice ice to op site, inc's x4 intact w/ steristrips, tolerating clears w/o nausea.
[2022-04-15 23:00] VITALS: BP 98/59; PULSE 91; RESP 20; TEMP 36.5; O2SAT 97
[2022-04-16] VITALS (8 sets, daily range): BP systolic 92–103; BP diastolic 52–60; PULSE 92–108; RESP 14–20; TEMP 36.6–36.7; O2SAT 86–97
[2022-04-16] MEDS: LACTATED RINGERS 1000 ML 1,000 ML 50 ML IV (00:20)
[2022-04-16] MEDS: MAG HYDROX/ALUMINUM HYD/SIMETH 30 ML ORAL.SUSP 15 ML PO (02:13)
[2022-04-16] MEDS: ALBUTEROL SULFATE 2.5 MG/3 ML VIAL.NEB NEB (05:03)
--- NOTE | 2022-04-16 06:29 | NUTR.NU ---
: Very [place]. SBA, calls for assistance prior to getting out of bed to help with IV pole and NC. Tolerating clears, pt states she cannot wait to advance her diet. Pt c/o abd pain 02/02, see emar. Maalox given at HS d/t c/o indigestion. Pt requiring 2L O2 via NC to maintain sats >88%. With activity pt desats to mid 80s, rebounds quickly with rest. Occasional productive cough, encouraged to use IS, PRN neb given. Continues to have soft pressures, 90s/50s, denies dizziness. Bruising noted around 3 lap and incision sites, active ice placed. Granddaughter at bedside overnight. ?
[2022-04-16] MEDS: OMEPRAZOLE 20 MG CAPSULE DR 40 MG PO ×2 (07:42→16:03)
[2022-04-16] MEDS: HYDROmorphone 0.5 mg/0.5 ml inj IVP (07:52)
[2022-04-16] MEDS: ONDANSETRON 2 MG/ML inj IVP ×2 (07:53→21:22)
[2022-04-16] MEDS: DULOXETINE 30 MG CAPSULE DR 60 MG PO (09:56)
[2022-04-16] MEDS: FLUOXETINE HCL 20 MG CAPSULE 40 MG PO (09:57)
--- NOTE | 2022-04-16 10:11 | PM.IMPN1 ---
Progress Note: A&P Assessment and plan (1) Polyp of ascending colon: Problem details: 66-year-old female Status post right hemicolectomy 04/13/2022 POD 2. Status: Acute Assessment and Plan: Will continue symptomatic treatment follow-up with General surgery. With regards to respiratory status I have again visit with respiratory therapy and they did begin seeing her today. I suspect she will need a home O2 at the time of discharge. Will also be reviewing her outpatient COPD regimen. Subjective Time Seen by Provider: 10:11 Date Seen: 04/16/22 Interval history: Patient is a a 66-year-old woman who is recovering from a right hemicolectomy for unresectable colon polyps. We were initially asked to see the patient she has underlying COPD. Patient is on her outpatient regiment of medications and states she feels well. Her recovery from surgery is slow but she is beginning to pass a small amount of gas. With regards to respiratory status patient cannot maintain her saturation anywhere close to 90% with any activity. I did have respiratory therapy do an assessment today and they do feel it she will be needing home oxygen and I would suspect she has been hypoxic for at home for quite some time. Exam Narrative: Exam Narrative: EXAM GENERAL: Patient appears comfortable and well. EYES: No scleral icterus. LYMPH: No supraclavicular or cervical lymphadenopathy. SKIN: Visible skin seen during exam normal or with benign process only. EXT: No dependent lower extremity pedal edema. HEART: Regular rate and rhythm with no murmurs, rubs, or gallops. LUNGS: Decreased breath sounds bilaterally. ABD: Soft, non tender, non distended. PSYCH: Good eye contact, speech is not pressured. Const: Vital Signs, click to edit/add: Vital Signs - 24 hr 04/15/22 10:36 04/15/22 16:00 04/15/22 19:45 Temperature 98.2 F 98.1 F 98.1 F Pulse Rate [Left P ulse Oximeter] 97 101 H 100 Respiratory Rate 20 20 20 Blood Pressure [Le ft Arm] 97/57 L 99/57 L 90/50 L Pulse Oximetry 97 92 91 04/15/22 23:00 04/16/22 03:00 04/16/22 07:00 Temperature 97.7 F 97.8 F 98.1 F Pulse Rate [Left P ulse Oximeter] 91 99 95 Respiratory Rate 20 20 14 Blood Pressure [Le ft Arm] 98/59 L 98/53 L 97/56 L Pulse Oximetry 97 90 86 L Labs Labs: Laboratory Results - last 24 hr 04/13/22 12:25 Surg PTH (Off-Site) See Scanned Report
--- NOTE | 2022-04-16 10:41 | PM.GSPN ---
Subjective Subjective Date Seen: 04/16/22 Interval history: Patient is doing ok this morning. When I saw her she was sitting up in bed and had some moderate pain of her abdomen. She does think this is mainly incisional. She is feeling hungry this morning. Denies passing gas but has had multiple loose stools. Reports some nausea with her pain meds and is intermittently burping. No vomiting. Has been up walking the halls. Exam Narrative: Exam Narrative: General: Alert and oriented, no acute distress and nontoxic in appearance. Abdomen: Significant ecchymoses surrounding incisions, which are appropriately tender to palpation. No significant distention abdomen is soft. Steri-Strips clean/dry/intact. Respiratory: Nasal cannula in place, equal breath rise bilaterally CV: Regular rhythm and rate, some mild tachycardia with movement. Const: Vital Signs, click to edit/add: Vital Signs - 24 hr 04/15/22 16:00 04/15/22 19:45 04/15/22 23:00 Temperature 98.1 F 98.1 F 97.7 F Pulse Rate [Left P ulse Oximeter] 101 H 100 91 Respiratory Rate 20 20 20 Blood Pressure [Le ft Arm] 99/57 L 90/50 L 98/59 L Pulse Oximetry 92 91 97 04/16/22 03:00 04/16/22 07:00 Temperature 97.8 F 98.1 F Pulse Rate [Left P ulse Oximeter] 99 95 Respiratory Rate 20 14 Blood Pressure [Le ft Arm] 98/53 L 97/56 L Pulse Oximetry 90 86 L Documenting provider has reviewed patient's vital signs: yes Labs/Imaging Labs Labs: No new labs Progress Note: A&P Assessment and plan (1) Polyp of ascending colon: Problem details: 66-year-old female Status post right hemicolectomy 04/13/2022 POD 3. Status: Acute Assessment and Plan: Patient is stable this morning. She is having a moderate amount of incisional pain, which is likely secondary to the associated ecchymoses. She is also reporting feeling hungry with evidence of return of bowel function. I did caution the patient to go very slow with diet and we will begin with some sips of coffee and cream of wheat this morning. Patient with nasal cannula in place to maintain oxygenation, this is likely secondary to atelectasis with patient also having a known history of COPD. Would encourage use of IS as well as ambulation. She is not yet ready for discharge, but hopefully will progress towards discharge in the next 2-3 days. -full liquids, will reassess before any advancement further of diet -IV and p.o. pain meds as needed -encourage ambulation, SCDs and Lovenox for DVT prophylaxis
[2022-04-16] MEDS: OxyCODONE/APAP 5-325 TABLET PO ×2 (12:14→21:28)
[2022-04-16] MEDS: guaiFENesin 100 MG/ML CUP PO (12:16)
[2022-04-16] MEDS: IPRAT-ALBUT 0.5-2.5 MG/3 ML NEB 1 NEB IH ×2 (15:46→21:30)
[2022-04-16] MEDS: ENOXAPARIN 40 MG/0.4 ML INJ SUBCUT (16:03)
[2022-04-16] MEDS: LORazepam 1 MG TABLET PO (16:47)
[2022-04-16] MEDS: NICOTINE 21 MG PATCH 1 PATCH TRANSDERMA (18:53)
--- NOTE | 2022-04-16 19:01 | PC.NURSE ---
[id number] Pt IV fluids dc'd per , pt saline locked, IV site asymptomatic. bilat foot non-pitting edema, SCDs and TEDs applied. Pt concerned about edema and oxygen saturation dropping below 80's while ambulating. Pt states I dont want to do anything that keeps from going home Discussed and educated on using IS, Aerobika and some medication to thin mucus to help with the O2 saturations.
[2022-04-16] MEDS: FLUTICASONE PROPION SALMETEROL 1 EACH IH (21:30)
[2022-04-17] VITALS (9 sets, daily range): BP systolic 96–103; BP diastolic 52–64; PULSE 66–99; RESP 16–20; TEMP 36.6–37; O2SAT 91–96
[2022-04-17] MEDS: OxyCODONE/APAP 5-325 TABLET PO ×3 (06:41→21:02)
[2022-04-17] MEDS: OMEPRAZOLE 20 MG CAPSULE DR 40 MG PO (06:48)
--- NOTE | 2022-04-17 07:25 | PC.NURSE ---
Shift Note : Pt pleasant and cooperative, BP remains low but Pt denies s/s. O2 saturation levels continue to drop into the low 80s with activity. At rest Pt maintains O2 sats >90% on 1.5L NC. LS clear in all lobes, BS active in all quads. Pt reports passing flatus as well as a productive cough. Abd is bruised on left side, lap incisions are CDI and open to air.
[2022-04-17] MEDS: IPRAT-ALBUT 0.5-2.5 MG/3 ML NEB 1 NEB IH ×4 (09:05→21:02)
[2022-04-17] MEDS: FLUTICASONE PROPION SALMETEROL 1 EACH IH ×2 (09:05→21:03)
[2022-04-17] MEDS: FLUOXETINE HCL 20 MG CAPSULE 40 MG PO (09:05)
[2022-04-17] MEDS: DULOXETINE 30 MG CAPSULE DR 60 MG PO (09:05)
--- NOTE | 2022-04-17 10:58 | PM.GSPN ---
Subjective Subjective Date Seen: 04/17/22 Interval history: Patient is doing okay this morning. Her main complaint is swelling of her legs. She does feel like she is requiring less oxygen. She has not yet ambulated this morning. She was able to sleep overnight. Her abdominal pain is slowly improving. She did tolerate some cream of wheat yesterday, but has not passed gas since yesterday. No bowel movement for 2 days. She is burping quite a bit and has some nausea with pain medications, denies any emesis. Exam Narrative: Exam Narrative: General: Alert and oriented, no acute distress. Lying comfortably in bed Respiratory: Patient is on 1.5 L nasal cannula, equal breath rise bilaterally CV: Regular rhythm and rate, well perfused Abdomen: Mild distention, soft, incisions are covered with Steri-Strips. Surrounding ecchymoses is stable. Abdomen is diffusely tender to palpation with no guarding or rebound. Const: Vital Signs, click to edit/add: Vital Signs - 24 hr 04/16/22 11:00 04/16/22 15:00 04/16/22 19:27 Temperature 98.1 F 98.1 F 98.1 F Pulse Rate [Left P ulse Oximeter] 108 H 107 H 92 Respiratory Rate 16 16 Blood Pressure [Le ft Arm] 103/60 95/57 L 99/58 L Pulse Oximetry 95 97 93 04/16/22 20:12 04/16/22 22:25 04/17/22 03:00 Temperature 97.8 F Pulse Rate [Left P ulse Oximeter] 102 H 98 Respiratory Rate 16 16 16 Blood Pressure [Le ft Arm] 92/52 L Pulse Oximetry 94 94 04/17/22 08:25 Temperature 98.2 F Pulse Rate [Left P ulse Oximeter] 66 Respiratory Rate 16 Blood Pressure [Le ft Arm] 102/56 L Pulse Oximetry 96 Documenting provider has reviewed patient's vital signs: yes Labs/Imaging Labs Labs: Repeat labs pending this morning. Imaging Imaging: No new imaging. Progress Note: A&P Assessment and plan (1) Polyp of ascending colon: Problem details: 66-year-old female Status post right hemicolectomy 04/13/2022 POD 4. Status: Acute Assessment and Plan: Patient has been slow to progress postoperatively. Recommend a suppository this morning, to stimulate a bowel movement. Will also transition patient back to NPO status, okay for sips and ice chips. She continues to remain on oxygen, although she is requiring less compared to yesterday. Vital signs stable and afebrile. Dr. Bowles to evaluate patient this morning. She is recommending an ECHO to evaluate for any component of CHF and fluid status. Will also obtain a CBC and BMP this morning. -NPO, okay for sips and ice chips. Patient is requesting coffee, which she is okay to have sips of. -IV fluids -encourage ambulation, SCDs and Lovenox for DVT prophylaxis -respiratory therapy consulted, continues to need oxygen -hospitalist following, will follow-up on echo and labs Please call with any acute clinical changes, questions or concerns.
[2022-04-17 11:18] LABS: Albumin* 3.2 g/dL (3.3-5.0); Basophils Absolute Auto 0.01 K/uL (0.00-0.30); Basophils Percent Auto 0.1 % (0.0-3.0); Chloride* 97 mmol/L (96-114); Eosinophils Percent Auto 1.3 % (0.0-7.0); Hematocrit 33.5 % (33.0-51.0); Hemoglobin* 10.6 gm/dL (12.0-16.0); Immature Granulocytes Abs Auto 0.02 K/uL (0.00-0.30); Lymphocytes Absolute Auto 2.08 K/uL (0.90-2.90); Lymphocytes Percent Auto 27.3 % (20-44); Mean Corpuscular HGB Conc 32 gm/dL (32-36); Mean Corpuscular Hemoglobin 30 pg (26-34); Mean Corpuscular Volume 95 fL (80-100); Neutrophils Absolute Auto 4.94 K/uL (1.7-7.0); Platelet Count* 203 K/uL (140-440); RDW Coefficient of Variation % 13.3 % (11.5-15.5); Red Blood Count 3.53 m/uL (4.00-5.20); White Blood Count* 7.61 K/uL (4.50-11.00)
[2022-04-17 11:19] LABS: Potassium* 3.4 mmol/L (3.6-5.1); Sodium* 131 mmol/L (135-149)
[2022-04-17 11:21] LABS: Aspartate Amino Transferase* 28 U/L (12-35); Bilirubin Total* 0.4 mg/dL (0.1-1.5); Carbon Dioxide* 32 mmol/L (20-32); Creatinine* 0.7 mg/dL (0.5-1.5); Estimated Glomerular Filt Rate 94 ml/min; Total Protein* 5.9 g/dL (6.0-8.3)
[2022-04-17 11:22] LABS: Alanine Aminotransferase* 23 U/L (4-35); Alkaline Phosphatase* 71 U/L (40-150); Blood Urea Nitrogen* 12 mg/dL (7-30); Glucose* 140 mg/dL (60-115)
[2022-04-17 11:26] LABS: Slide Review Reflex No
[2022-04-17] MEDS: bisacodyL 10 MG SUPP.RECT PR (11:26)
--- NOTE | 2022-04-17 12:05 | CRLHL7_ITS ---
For Patients: As a result of the Cures Act, medical imaging exams and procedure reports are released immediately into your electronic medical record. You may view this report before your referring provider. If you have questions, please contact your health care provider. HISTORY: Hypoxia. COPD. TECHNIQUE: Portable frontal view the chest. COMPARISON: None. FINDINGS: Lungs are hyperinflated. No airspace consolidation. No pleural effusion or pneumothorax. Pulmonary vasculature and cardiomediastinal silhouette are unremarkable. IMPRESSION: Hyperinflated lungs. Dictated by Leland Andrews MD @ 04/17/2022 1:37:52 PM (Electronically Signed)
[2022-04-17] MEDS: POTASSIUM BICARB 25 MEQ EFFERVESCENT TAB PO ×2 (12:24→14:26)
--- NOTE | 2022-04-17 12:44 | CRLHL7_ITS ---
For Patients: As a result of the Century Cures Act, medical imaging exams and procedure reports are released immediately into your electronic medical record. You may view this report before your referring provider. If you have questions, please contact your health care provider. INDICATION: Bilateral edema. Postop. COMPARISON: None available FINDINGS: Ultrasound of the venous drainage of both lower extremities was performed using real-time wayne scale imaging (B mode 2D), color flow Doppler and spectral analysis. There is no evidence of deep venous thrombosis. There is normal antegrade flow from the posterior tibial and peroneal veins superiorly through the common femoral vein in both legs. There is normal augmentation and compressibility of these veins. IMPRESSION: No evidence of deep venous thrombosis on ultrasound examination of both lower extremities. Dictated by Aashish Hastings MD @ 04/17/2022 3:27:58 PM (Electronically Signed)
--- NOTE | 2022-04-17 14:26 | RESP.RT ---
Patient sitting up in bed resting appears comfortable, daughter in room visiting. On Nasal cannula 1.5 Lpm, SaO2 94%, respiratory rate 20/minute, breathing regular/easy. Good clear voice, answers questions appropriately. Patient did Aerobika x4 with good effort, had patient and daughter feel patient chest shake during exhalation effort. Good chest shake, promoted NPC. Discussed use of Aerobika in promoting lung expansion, secretion removal, and promoting cough. Patient did IS x4, good effort 400 on scale. Discussed use of Aerobika in promoting lung expansion, secretion removal, and promoting cough. Patient and daughter understand use, daughter with RT and Nurse will encourage patient to continue to use both frequently. Discussed with patient and daughter, COPD, smoking and the use of home Oxygen if the patient would have that need. Explained to patient use of a 3-part test to determine if and how much Oxygen patient would need if she goes home with it. Explained that with Home Oxygen patient would be able to do so much more activity with more ease and comfort. Discussed with patient and daughter use of home respiratory medication, the use of a extension or chamber to increase the amount of the medication to reach the lungs, discussed technique of takeing MDI, and dry powder medication. Both understand and state so. Will continue to follow.
[2022-04-17] MEDS: ONDANSETRON 2 MG/ML inj IVP (14:29)
[2022-04-17] MEDS: LORazepam 1 MG TABLET PO ×2 (15:26→21:03)
[2022-04-17] MEDS: ENOXAPARIN 40 MG/0.4 ML INJ SUBCUT (15:26)
--- NOTE | 2022-04-17 17:19 | P.IMPN_ITS ---
Progress Note: A&P Assessment and plan (1) S/P right hemicolectomy: Problem details: 04/13/22, for polyp of ascending colon Status: Acute Assessment and Plan: Postop ileus. Got a suppository today. As per surgery. (2) Hypoxia: Problem details: No acute processes identified. Lung exam consistent with severe COPD. Chest x- ray today shows hyperinflation. Echocardiogram preliminary results are reviewed and LVEF is preliminary normal. Bilateral lower extremity ultrasounds negative for DVT, has been on VTE prophylaxis postoperatively, unlikely PE. Status: Acute Assessment and Plan: Most likely secondary to COPD. Continue oxygen and will need oxygen assessment for home going when ready to discharge. (3) Bilateral lower extremity edema: Problem details: Echocardiogram preliminary results are reviewed and LVEF is preliminary normal. Bilateral lower extremity ultrasounds negative for DVT. Status: Acute Assessment and Plan: Suspect this is secondary to fluid shifting postoperatively and possibly mild malnutrition. Encourage ambulation. (4) Chronic obstructive pulmonary disease: Problem details: not on O2 at home. Status: Acute Assessment and Plan: Continue Spiriva, Advair, DuoNebs, and p.r.n. albuterol nebs. Smoking cessation as below. (5) Tobacco dependence: Status: Acute Assessment and Plan: Discussion as above. Have ordered nicotine patches for home going. Have also asked her to talk with her daughter about a plan for changing her routine and identifying triggers for craving cigarettes. Plan VTE prophylaxis with low-dose nightly enoxaparin. Subjective Date Seen: 04/17/22 Interval history: Bianca's daughter, Ana, is with her today. Bianca noticed lower extremity edema yesterday evening. It is still present today. She has never had anything like that before. She denies shortness of breath. No chest pain. I had an extensive discussion with her about tobacco cessation. She is motivated to quit and even told me that she quit the day she came into the hospital. We talked about changing routines and identifying triggers in order to be more successful with tobacco cessation. She would like to also try the nicotine patch for home going. Exam Narrative: Exam Narrative: General: No acute distress. Awake, alert, oriented x3. No pallor. No jaundice. Oropharynx: Clear. Mucous membranes moist. Cardiovascular: Regular rate and rhythm. No murmurs, gallops, or rubs. Respiratory: Tight with very few breath sounds that are audible, no crackles or wheezing. Abdomen: Bowel sounds present. Soft, nondistended, nontender. Extremities: 2+ pitting edema to knees bilaterally. Const: Vital Signs, click to edit/add: Vital Signs - 24 hr 04/16/22 19:27 04/16/22 20:12 04/16/22 22:25 Temperature 98.1 F 97.8 F Pulse Rate [Left P ulse Oximeter] 92 102 H Respiratory Rate 16 16 16 Blood Pressure [Le ft Arm] 99/58 L 92/52 L Pulse Oximetry 93 94 04/17/22 03:00 04/17/22 08:25 04/17/22 11:31 Temperature 98.2 F 98.4 F Pulse Rate [Left P ulse Oximeter] 98 66 96 Respiratory Rate 16 16 18 Blood Pressure [Le ft Arm] 102/56 L 103/52 L Pulse Oximetry 94 96 94 04/17/22 13:14 04/17/22 15:10 04/17/22 15:31 Temperature 98.6 F Pulse Rate [Left P ulse Oximeter] 96 Respiratory Rate 20 20 20 Blood Pressure [Le ft Arm] 103/61 Pulse Oximetry 94 Labs Labs: Laboratory Results - last 24 hr 04/17/22 04/17/22 10:55 10:55 WBC 7.61 RBC 3.53 L Hgb 10.6 L Hct 33.5 MCV 95 MCH 30 MCHC 32 RDW Coeff of Riri 13.3 Plt Count 203 Neut % (Auto) 65.0 Lymph % (Auto) 27.3 Sullivan % (Auto) 6.0 Eos % (Auto) 1.3 Baso % (Auto) 0.1 Neut # (Auto) 4.94 Lymph # (Auto) 2.08 Sullivan # (Auto) 0.50 Eos # (Auto) 0.10 Baso # (Auto) 0.01 Abs Immat Gran (auto) 0.02 Sodium 131 L Potassium 3.4 L Chloride 97 Carbon Dioxide 32 BUN 12 Creatinine 0.7 Estimated Creat Clear 44.80 Estimated GFR 94 Glucose 140 H Calcium 8.0 L Total Bilirubin 0.4 AST 28 ALT 23 Alkaline Phosphatase 71 Total Protein 5.9 L Albumin 3.2 L
--- NOTE | 2022-04-17 18:53 | PC.NURSE ---
Shift Summary: Patient pleasant and cooperative. Up with SBA and gait belt. Has been up in the king walking x3 today. Maintaining o2 sats >90% on 1.5L/NC. Had x1 loose BM following suppository, diet now full liquid. Pain managed with PRN medication and rest. Daughters in room and supportive. Needs encouragement to do aerobika and incentive spirometer.
[2022-04-17] MEDS: NICOTINE 21 MG PATCH 1 PATCH TRANSDERMA (18:59)
[2022-04-18] VITALS (11 sets, daily range): BP systolic 103–134; BP diastolic 61–84; PULSE 86–116; RESP 16–22; TEMP 36.2–36.8; O2SAT 79–98
[2022-04-18] MEDS: OxyCODONE/APAP 5-325 TABLET PO ×5 (03:25→17:36)
--- NOTE | 2022-04-18 04:40 | PC.NURSE ---
Shift Note -: Pt pleasant and cooperative, VSS, BP remains low and Pt is not symptomatic. Pt up to BR with SBA, de-sats into the 70s with activity but recovers quickly at rest. Abdomen continues to be tender and bruised, pain controlled with 1 Percocet tab, Pt rates pain consistently @ 4/10 and is satisfied with these results. Daughter has been present in the room this entire night.
[2022-04-18] MEDS: ONDANSETRON 2 MG/ML inj IVP (07:35)
[2022-04-18] MEDS: FLUOXETINE HCL 20 MG CAPSULE 40 MG PO (09:20)
[2022-04-18] MEDS: DULOXETINE 30 MG CAPSULE DR 60 MG PO (09:20)
[2022-04-18] MEDS: IPRAT-ALBUT 0.5-2.5 MG/3 ML NEB 1 NEB IH ×4 (09:21→20:55)
--- NOTE | 2022-04-18 10:59 | PM.GSPN ---
Subjective Subjective Date Seen: 04/18/22 Interval history: Patient is doing well this morning and seems in better spirits. She did have a bowel movement, which she reports is liquid stool and passed gas. She has not passed gas since. She did tolerate a full liquid diet for breakfast this morning, with no nausea or vomiting. She is feeling hungry and wants to try some toast. She continues to need oxygen, especially when ambulating. Her daughter is at the bedside this morning and wanted to talk about assessing whether the patient can tolerate stairs or if certain accommodations need to be made for when the patient goes home. Exam Narrative: Exam Narrative: General: Alert and oriented, no acute distress Abdomen: Soft, tender around incision sites appropriately with surrounding ecchymoses stable. No concern for infection. Const: Vital Signs, click to edit/add: Vital Signs - 24 hr 04/17/22 11:31 04/17/22 13:14 04/17/22 15:10 Temperature 98.4 F Pulse Rate [Left P ulse Oximeter] 96 Respiratory Rate 18 20 20 Blood Pressure [Le ft Arm] 103/52 L Pulse Oximetry 94 04/17/22 15:31 04/17/22 21:11 04/17/22 21:16 Temperature 98.6 F 97.9 F Pulse Rate [Left P ulse Oximeter] 96 96 99 Respiratory Rate 20 18 18 Blood Pressure [Le ft Arm] 103/61 96/64 Pulse Oximetry 94 91 04/17/22 23:00 04/18/22 03:35 04/18/22 07:47 Temperature 97.9 F 98.2 F Pulse Rate [Left P ulse Oximeter] 94 107 H 116 H Respiratory Rate 16 18 20 Blood Pressure [Le ft Arm] 105/84 134/61 Pulse Oximetry 95 91 90 04/18/22 07:51 Temperature Pulse Rate [Left P ulse Oximeter] 116 H Respiratory Rate 22 Blood Pressure [Le ft Arm] Pulse Oximetry Progress Note: A&P Assessment and plan (1) S/P right hemicolectomy: Problem details: 04/13/22, for polyp of ascending colon Status: Acute Assessment and Plan: Patient is doing well this morning, has passed a moderate amount of stool and is tolerating full liquids. Will continue to advance diet towards regular. She is tolerating oral pain medications. She does continue to need oxygen when ambulating. Daughter reports some barriers at home, including multiple stairs that the patient will half to climb. Will have Physical therapy evaluate today. Anticipate likely discharge tomorrow -advance to regular diet as tolerated -p.o. pain meds as needed -encourage ambulation, SCDs and Lovenox for DVT prophylaxis -respiratory therapy consulted, hospitalist is arranging oxygen at the time of discharge -physical therapy to evaluate today Please call with any acute clinical changes, questions or concerns.
--- NOTE | 2022-04-18 12:16 | PC.NURSE ---
From Dr. Theodore note 04/18 advanced diet to reg. as meena. Pt and family aware to advance slowly
[2022-04-18] MEDS: predniSONE 20 MG TABLET PO (13:26)
[2022-04-18] MEDS: ONDANSETRON ODT 4 MG TAB PO (13:27)
--- NOTE | 2022-04-18 15:23 | RESP.RT ---
Peak Flow; Predicted Peak Flow for patient is over 400 Lpm via; age, height, Female. Patient could only muster 80 Lpm x 6, it may have been Peak Flow device mouth opening, not a good seal/fit. Had patient blow bubbles, patient had poor expiratory effort during this maneuver. Daughter will encourage patient to practice blowing bubbles to try Peak Flow again. Pulmonary Function testings with body box may be appropriate for this patient.
--- NOTE | 2022-04-18 16:22 | P.IMPN_ITS ---
Progress Note: A&P Assessment and plan (1) S/P right hemicolectomy: Problem details: 04/13/22, for polyp of ascending colon Status: Acute Assessment and Plan: Postop ileus, resolved. Cares per surgery. (2) Hypoxia: Problem details: No acute processes identified. Lung exam consistent with severe COPD. Chest x- ray today shows hyperinflation. Echocardiogram preliminary results are reviewed and LVEF is preliminary normal. Bilateral lower extremity ultrasounds negative for DVT, has been on VTE prophylaxis postoperatively, unlikely PE. Status: Acute Assessment and Plan: Most likely secondary to COPD exacerbation and fluid shifting postoperatively. Continue oxygen and will need oxygen assessment for home going when ready to discharge. (3) Bilateral lower extremity edema: Problem details: Echocardiogram preliminary results are reviewed and LVEF is preliminary normal. Bilateral lower extremity ultrasounds negative for DVT. Status: Acute Assessment and Plan: Suspect this is secondary to fluid shifting postoperatively and possibly mild malnutrition. It is improving. Encourage ambulation. (4) Chronic obstructive pulmonary disease: Problem details: not on O2 at home. Status: Acute Assessment and Plan: Continue Spiriva, Advair, DuoNebs, and p.r.n. albuterol nebs. Smoking cessation discussed again today. Try a burst of prednisone starting today over the next 3 days see if this improves her back to her baseline. Will likely need home O2. (5) Tobacco dependence: Status: Acute Assessment and Plan: I have ordered nicotine patches for home going. I again talked with her and her daughter about a plan for changing her routine and identifying triggers for craving cigarettes. Plan VTE prophylaxis with low-dose nightly enoxaparin. Subjective Time Seen by Provider: 10:36 Date Seen: 04/18/22 Interval history: The patient's daughter, Jenni, was in the room with her today. Radha says that she is feeling a bit better today. She was up urinating frequently throughout the night and this morning her lower extremities are much less edematous according to her. 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 At [employer] she would often get a cart, but at [employer] she would walk around for about an hour looking at things and did not seem to get it significantly winded. Here she feels winded just getting to the bathroom. She was hesitant to try prednisone because she had had it when she was in her 20s and became significantly nauseous with it. After discussing the potential benefits of a short burst of prednisone for possible COPD exacerbation, she was agreeable to give this a try. Exam Narrative: Exam Narrative: General: No acute distress. Awake, alert, oriented x3. No pallor. No jaundice. Oropharynx: Clear. Mucous membranes moist. Cardiovascular: Regular rate and rhythm. No murmurs, gallops, or rubs. Respiratory: Remains tight with very few breath sounds that are audible, no crackles or wheezing. Abdomen: Bowel sounds present. Soft, nondistended, nontender. Extremities: 1 + pitting edema to knees bilaterally. Const: Vital Signs, click to edit/add: Vital Signs - 24 hr 04/17/22 21:11 04/17/22 21:16 04/17/22 23:00 Temperature 97.9 F Pulse Rate [Left P ulse Oximeter] 96 99 94 Respiratory Rate 18 18 16 Blood Pressure [Le ft Arm] 96/64 Pulse Oximetry 91 95 04/18/22 03:35 04/18/22 07:47 04/18/22 07:51 Temperature 97.9 F 98.2 F Pulse Rate [Left P ulse Oximeter] 107 H 116 H 116 H Respiratory Rate 18 20 22 Blood Pressure [Le ft Arm] 105/84 134/61 Pulse Oximetry 91 90 04/18/22 11:00 04/18/22 14:50 04/18/22 15:12 Temperature 98.0 F Pulse Rate [Left P ulse Oximeter] 95 89 Respiratory Rate 17 16 Blood Pressure [Le ft Arm] 103/62 Pulse Oximetry 92 98
[2022-04-18] MEDS: NICOTINE 21 MG PATCH 1 PATCH TRANSDERMA (16:33)
[2022-04-18] MEDS: ENOXAPARIN 40 MG/0.4 ML INJ SUBCUT (16:34)
[2022-04-18] MEDS: LORazepam 1 MG TABLET PO (17:08)
--- NOTE | 2022-04-18 18:41 | PC.NURSE ---
Pt given Percocet for 4-10, with relief. Walked in halls X4 she does desat to 79% on 4L. Dtr's at bedside and assist the pt to the BR, she denies dizziness, or lightheadedness. She is aware to call for help as needed. Pt has large amount of bruising to abd. and swelling.
[2022-04-18] MEDS: FLUTICASONE PROPION SALMETEROL 1 EACH IH (20:55)
[2022-04-19] MEDS: OxyCODONE/APAP 5-325 TABLET PO ×3 (01:57→12:34)
[2022-04-19 03:00] VITALS: BP 106/69; PULSE 88; RESP 16; TEMP 36.6; O2SAT 91
--- NOTE | 2022-04-19 05:19 | PC.NURSE ---
[id number]: patient SBA, steady gait. remains on 1.5LPM oxygen via NC, attemtps to cruz[place] unsuccessful, patient sats drop to low 80s on 1LPM. abd. remains bruised, steri stirps c/d/i, pain well managed see EMAR for meds given. tolerating full liquid diet w/o nausea
[2022-04-19] MEDS: OMEPRAZOLE 20 MG CAPSULE DR 40 MG PO (06:34)
[2022-04-19 07:00] VITALS: BP 123/75; PULSE 92; RESP 20; TEMP 36.3; O2SAT 94
[2022-04-19] MEDS: FLUOXETINE HCL 20 MG CAPSULE 40 MG PO (09:11)
[2022-04-19] MEDS: predniSONE 20 MG TABLET PO (09:11)
[2022-04-19] MEDS: DULOXETINE 30 MG CAPSULE DR 60 MG PO (09:12)
[2022-04-19] MEDS: SODIUM CHLORIDE NASAL SPRAY 1 SPRAY NOSTRIL-B (09:27)
--- NOTE | 2022-04-19 10:18 | P.DS_ITS ---
DS: Providers Provider Time Seen by Provider: 10:20 Date Seen: 04/19/22 Date of admission: 04/13/22 06:58 Primary care physician: Robert Riley MD Admitting Clinician: Magda Hartman MD Consults: 04/13/22 17:58 Consult to Respiratory Therapy [CONS] Routine Comment: Reason(s) for RT Consult:: Consult Comment: post op s/p lap hemicolectomy. COPD. Smoker. Pulmonary hygiene: Bedside incentive spirometer. Aerobika device. 04/16/22 09:20 Consult to Respiratory Therapy [CONS] Routine Comment: Reason(s) for RT Consult:: Consult 04/18/22 10:34 Consult to Physical Therapy [CONS] Routine Comment: Reason(s) for PT Consult:: Evaluate and Treat Any Restrictions?:: No Restrictions Attending Physician on discharge: Magda Hartman MD Date of Discharge: 04/19/22 DS: Diagnosis Discharge Diagnosis (1) Hypoxia: Status: Acute Problem details: No acute processes identified. Lung exam consistent with severe COPD. Chest x- ray today shows hyperinflation. Echocardiogram preliminary results are reviewed and LVEF is preliminary normal. Grade I diastolic dysfunction. Bilateral lower extremity ultrasounds negative for DVT, has been on VTE prophylaxis postoperatively, unlikely PE. (2) Chronic obstructive pulmonary disease: Status: Acute Problem details: Home O2 1L at rest, 3L with activity (3) Bilateral lower extremity edema: Status: Acute Problem details: Echocardiogram preliminary results are reviewed and LVEF is preliminary normal. Bilateral lower extremity ultrasounds negative for DVT. (4) S/P right hemicolectomy: Status: Acute Problem details: 04/13/22, for polyp of ascending colon (5) Echocardiogram abnormal: Status: Acute Problem details: 04/17/2022 echocardiogram: Normal LV size, normal wall thickness, normal global systolic function with an estimated EF of 55-60%. Grade 1 pattern of LV diastolic filling. Mildly enlarged RV, function appears normal. Aortic valve is trileaflet and sclerotic, no stenosis and no regurgitation. Mitral valve is sclerotic, trace mitral regurgitation. Ascending aorta is dilated with maximal diameter of 3.7 cm. Severely increased estimated pulmonary pressures with tricuspid regurgitation velocity and right atrial pressure (51 mm Hg plus RAP). Very vena cava is normal size, respiratory size variation greater than 50%. (6) Pulmonary hypertension: Status: Acute (7) Ascending aortic aneurysm: Status: Acute Problem details: 04/17/2022 echocardiogram: Ascending aorta is dilated with maximal diameter of 3.7 cm. (8) Diastolic dysfunction, left ventricle: Status: Acute Problem details: 04/17/2022 echocardiogram: Normal LV size, normal wall thickness, normal global systolic function with an estimated EF of 55-60%. Grade 1 pattern of LV diastolic filling. (9) Tobacco dependence: Status: Chronic DS: Summary Hospital Course Hospital Course: This is a 66-year-old female who underwent elective hemicolectomy for unresectable cecal polyps. She has a history of COPD and was hypoxic postoperatively for which the hospitalist service was consulted. She is a current smoker, smoking half a pack of cigarettes per day and was encouraged to quit during this hospitalization by multiple providers. She appeared motivated to do so and has asked for nicotine patches to use as an outpatient. She and I also discussed changes to her routine and identifying triggers for cravings in order to help her be successful in staying quit. She did require oxygen postoperatively for the remainder of her hospital stay. A chest x-ray was obtained which showed hyperinflation. She had bilateral lower extremity edema for which she had a bilateral lower extremity ultrasound that was negative for DVT. An echocardiogram was done in the results of which are part of this note. Ultimately there was no acute finding. She has otherwise done well and lower extremity edema is improving on its own, which started day 3 postoperative. She is discharged home today with home oxygen and is stable from a medical standpoint. Note to primary care provider: Please consider referring her for PFTs and pulmonology consultation. Time spent discussing smoking cessation with patient: more than 10 minutes Status at Discharge Functional status at discharge: independent ambulation Overall status at discharge: patient is back to baseline Time Spent with Patient Time attestation: Total time spent providing and/or coordinating discharge services: Time spent: Greater than 30 minutes Exam Narrative: Exam Narrative: General: No acute distress. Awake, alert, oriented. Oropharynx: Clear. Mucous membranes moist. Cardiovascular: Regular rate and rhythm. No murmurs, gallops, or rubs. Respiratory: Breathing comfortably. Slightly less tight than yesterday, 1 expiratory wheeze on the left, slight air movement. Abdomen: Bowel sounds present. Soft, nondistended, nontender. Extremities: 1 + pitting edema to knees bilaterally, improving. Const: Vital Signs, click to edit/add: Vital Signs - 24 hr 04/18/22 11:00 04/18/22 14:50 04/18/22 15:00 Temperature 98.0 F 97.2 F L Pulse Rate [Left P ulse Oximeter] 95 97 Respiratory Rate 17 20 Blood Pressure [Le ft Arm] 103/62 117/65 Pulse Oximetry 92 98 96 04/18/22 15:12 04/18/22 19:00 04/18/22 23:00 Temperature 98.2 F Pulse Rate [Left P ulse Oximeter] 89 99 86 Respiratory Rate 16 16 16 Blood Pressure [Le ft Arm] 109/70 109/70 Pulse Oximetry 91 93 04/19/22 03:00 04/19/22 07:00 Temperature 98 F 97.3 F L Pulse Rate [Left P ulse Oximeter] 88 92 Respiratory Rate 16 20 Blood Pressure [Le ft Arm] 106/69 123/75 Pulse Oximetry 91 94 DS: Data Data Completed and Pending Completed studies during hospitalization: Ordering Physician: Coleen Bowles MD Date of Service: 04/17/22 Procedure(s): XR chest 1V portable Accession Number(s): [id number] cc: Coleen Bowles MD; Robert Riley M.D.~ For Patients: As a result of the Cures Act, medical imaging exams and procedure reports are released immediately into your electronic medical record. You may view this report before your referring provider. If you have questions, please contact your health care provider. HISTORY: Hypoxia. COPD. TECHNIQUE: Portable frontal view the chest. COMPARISON: None. FINDINGS: Lungs are hyperinflated. No airspace consolidation. No pleural effusion or pneumothorax. Pulmonary vasculature and cardiomediastinal silhouette are unremarkable. IMPRESSION: Hyperinflated lungs. Dictated by Leland Andrews MD @ 04/17/2022 1:37:52 PM (Electronically Signed) Ordering Physician: Coleen Bowles MD Date of Service: 04/17/22 Procedure(s): US venous LE BI Accession Number(s): [id number] cc: Coleen Bowles MD; Robert Riley M.D.~ For Patients: As a result of the Cures Act, medical imaging exams and procedure reports are released immediately into your electronic medical record. You may view this report before your referring provider. If you have questions, please contact your health care provider. INDICATION: Bilateral edema. Postop. COMPARISON: None available FINDINGS: Ultrasound of the venous drainage of both lower extremities was performed using real-time wayne scale imaging (B mode 2D), color flow Doppler and spectral analysis. There is no evidence of deep venous thrombosis. There is normal antegrade flow from the posterior tibial and peroneal veins superiorly through the common femoral vein in both legs. There is normal augmentation and compressibility of these veins. IMPRESSION: No evidence of deep venous thrombosis on ultrasound examination of both lower extremities. Dictated by Aashish Hastings MD @ 04/17/2022 3:27:58 PM (Electronically Signed) 04/17/2022 echocardiogram: Normal LV size, normal wall thickness, normal global systolic function with an estimated EF of 55-60%. Grade 1 pattern of LV diastolic filling. Mildly enlarged RV, function appears normal. Aortic valve is trileaflet and sclerotic, no stenosis and no regurgitation. Mitral valve is sclerotic, trace mitral regurgitation. Ascending aorta is dilated with maximal diameter of 3.7 cm. Severely increased estimated pulmonary pressures with tricuspid regurgitation velocity and right atrial pressure (51 mm Hg plus RAP). Very vena cava is normal size, respiratory size variation greater than 50%. Discharge Plan Discharge Disposition: Home, Self-Care Date of Admission: 04/13/22 06:58 Attending Provider on Discharge: Magda Hartman Consulting Providers: Coleen Bowles Primary Care Provider: Robert Riley Condition: Stable Anticipated Discharge Date/Time: 04/19/22 12:30 Discharge Medications: New oxycodone-acetaminophen [Percocet] 5-325 mg tablet 1 tab PO Q6H PRN (Reason: pain) Qty: 30 0RF ondansetron 4 mg tablet,disintegrating 4 mg PO Q8H PRN (Reason: nausea and vomiting) Qty: 7 0RF nicotine 21 mg/24 hr Patch 24 Hour 1 patch transdermal Q24H Qty: 28 0RF ipratropium-albuterol 0.5 mg-3 mg(2.5 mg base)/3 mL Solution For Nebulization 1 neb inhalation QID Qty: 20 0RF prednisone 20 mg Tablet 20 mg PO DAILYWM Qty: 1 0RF (DME) Home Oxygen Misc See Rx Instructions .Route Qty: 1 0RF Rx Instructions: 1 liter/minute nasal cannula at rest, 3 liter/minute nasal cannula with activity, continuous, duration the 99 months (DME) nebulizer and compressor Device See Rx Instructions .Route Qty: 1 0RF Rx Instructions: As directed (DME) nebulizer accessories Kit See Rx Instructions .Route Qty: 1 0RF Rx Instructions: As directed Continued fluticasone propion-salmeterol 500-50 mcg/dose blister with device 1 inh inhalation BID 0RF tiotropium bromide 18 mcg capsule, w/inhalation device 18 mcg inhalation DAILY 0RF celecoxib 200 mg capsule 200 mg PO BID 0RF lorazepam 1 mg tablet 1 mg PO BID PRN0RF duloxetine 60 mg capsule,delayed release(DR/EC) 60 mg PO DAILY 0RF ergocalciferol (vitamin D2) 1,250 mcg (50,000 unit) capsule 50,000 unit PO .Once Weekly 0RF albuterol sulfate 90 mcg/actuation HFA aerosol inhaler 2 inh inhalation Q4-6H PRN0RF fluoxetine 40 mg capsule 40 mg PO DAILY 0RF famotidine 20 mg tablet 20 mg PO BID PRN0RF Discharge Orders: Discharge Order (Routine); Ordered 04/19/22 Ordered By: Magda Hartman Patient Education: Oxycodone/Acetaminophen (By mouth), Nystatin (By mouth), Nicotine (Absorbed through the skin), Ondansetron (By mouth, Into the mouth), Colectomy (GEN) Activity Restrictions/Additional Instructions: Okay to discharge home when oxygen at home is set up. Patient can do nystatin swish and swallow at home (the bottle that was provided at the hospital). Patient should follow up her primary care doctor in 2-3 days to follow-up on her COPD. Activity Level: No strenuous activity Activity Detail: No strenuous activity or lifting more than 15-20 lbs for 4-6 weeks. Discharge Diet: Regular Follow Up Appointments: Magda Hartman MD [Staff Physician] - 04/28/22 11:30 am Jess Salazar MD [Staff Physician] - 04/22/22 1:30 pm (PCP unavailable) Robert Riley MD [Primary Care Provider] - (See end of this week or early next) Forms: [employer] Info Instructions
--- NOTE | 2022-04-19 12:32 | P.DS_ITS ---
DS: Providers Provider Date Seen: 04/19/22 Date of admission: 04/13/22 06:58 Primary care physician: Robert Riley MD Admitting Clinician: Magda Hartman MD Consults: 04/13/22 17:58 Consult to Respiratory Therapy [CONS] Routine Comment: Reason(s) for RT Consult:: Consult Comment: post op s/p lap hemicolectomy. COPD. Smoker. Pulmonary hygiene: Bedside incentive spirometer. Aerobika device. 04/16/22 09:20 Consult to Respiratory Therapy [CONS] Routine Comment: Reason(s) for RT Consult:: Consult 04/18/22 10:34 Consult to Physical Therapy [CONS] Routine Comment: Reason(s) for PT Consult:: Evaluate and Treat Any Restrictions?:: No Restrictions Attending Physician on discharge: Magda Hartman MD DS: Diagnosis Discharge Diagnosis (1) S/P right hemicolectomy: Status: Acute Problem details: 04/13/22, for polyp of ascending colon DS: Summary Hospital Course Hospital Course: 66-year-old female underwent laparoscopic right hemicolectomy for endoscopically unresectable cecal polyps found during colonoscopy. Patient was recovering well postoperatively. She remained on oxygen and was not able to maintain her sats above 88 without oxygen. Patient is discharged home on O2. She also received a burst of prednisone for 3 days due to her history of COPD and her ongoing oxygen requirement. Time Spent with Patient Time attestation: Total time spent providing and/or coordinating discharge services: Exam Narrative: Exam Narrative: Abdomen: Laparoscopic incisions with Steri is over the incisions. There is maroon appearing ecchymosis surrounding the incisions scattered throughout the abdominal wall. At the right paramedian incision there is some surrounding ecchymosis and a subcutaneous bulge that is minimally tender to palpation. This is most likely a soft tissue hematoma. This is not expanding. The skin of the abdominal wall appears edematous. Const: Vital Signs, click to edit/add: Vital Signs - 24 hr 04/18/22 14:50 04/18/22 15:00 04/18/22 15:12 Temperature 97.2 F L Pulse Rate [Left P ulse Oximeter] 97 89 Respiratory Rate 20 16 Blood Pressure [Le ft Arm] 117/65 Pulse Oximetry 98 96 04/18/22 19:00 04/18/22 23:00 04/19/22 03:00 Temperature 98.2 F 98 F Pulse Rate [Left P ulse Oximeter] 99 86 88 Respiratory Rate 16 16 16 Blood Pressure [Le ft Arm] 109/70 109/70 106/69 Pulse Oximetry 91 93 91 04/19/22 07:00 Temperature 97.3 F L Pulse Rate [Left P ulse Oximeter] 92 Respiratory Rate 20 Blood Pressure [Le ft Arm] 123/75 Pulse Oximetry 94 Discharge Plan Discharge Disposition: Home, Self-Care Date of Admission: 04/13/22 06:58 Attending Provider on Discharge: Magda Hartman Consulting Providers: Coleen Bowles Primary Care Provider: Robert Riley Condition: Stable Anticipated Discharge Date/Time: 04/19/22 12:30 Discharge Medications: New oxycodone-acetaminophen [Percocet] 5-325 mg tablet 1 tab PO Q6H PRN (Reason: pain) Qty: 30 0RF ondansetron 4 mg tablet,disintegrating 4 mg PO Q8H PRN (Reason: nausea and vomiting) Qty: 7 0RF nicotine 21 mg/24 hr Patch 24 Hour 1 patch transdermal Q24H Qty: 28 0RF Continued fluticasone propion-salmeterol 500-50 mcg/dose blister with device 1 inh inhalation BID 0RF tiotropium bromide 18 mcg capsule, w/inhalation device 18 mcg inhalation DAILY 0RF celecoxib 200 mg capsule 200 mg PO BID 0RF lorazepam 1 mg tablet 1 mg PO BID PRN0RF duloxetine 60 mg capsule,delayed release(DR/EC) 60 mg PO DAILY 0RF ergocalciferol (vitamin D2) 1,250 mcg (50,000 unit) capsule 50,000 unit PO .Once Weekly 0RF albuterol sulfate 90 mcg/actuation HFA aerosol inhaler 2 inh inhalation Q4-6H PRN0RF fluoxetine 40 mg capsule 40 mg PO DAILY 0RF famotidine 20 mg tablet 20 mg PO BID PRN0RF Discharge Orders: Discharge Order (Routine); Ordered 04/19/22 Ordered By: Magda Hartman Patient Education: Colectomy (GEN) Activity Restrictions/Additional Instructions: Okay to discharge home when oxygen at home is set up. Patient can do nystatin swish and swallow at home (the bottle that was provided at the hospital). Patient should follow up her primary care doctor in 2-3 days to follow-up on her COPD. Activity Level: No strenuous activity Activity Detail: No strenuous activity or lifting more than 15-20 lbs for 4-6 weeks. Discharge Diet: Regular Follow Up Appointments: Magda Hartman MD [Staff Physician] - Robert Riley MD [Primary Care Provider] - Forms: [employer] Info Instructions
[2022-04-19] MEDS: IPRAT-ALBUT 0.5-2.5 MG/3 ML NEB 1 NEB IH (13:12)
[2022-04-19] MEDS: LORazepam 1 MG TABLET PO (13:12)
--- NOTE | 2022-04-19 13:31 | RESP.RT ---
respiratory therapy note, Patient resting on room air SaO2 87% setting on side of bed, walked patient to doo 20 feet SaO2 decreased to 80%, placed patient on 3 Lpm Oxygen, and walked back to bed, patient SaO2 increased to 86%, when patient was seated on bed 2 minutes SaO2 increased to mid 90's and Oxygen was decreased to 1 Lpm, SaO2 returned to 90%
--- NOTE | 2022-04-19 13:42 | W.PM.HOT ---
Acute Home Oxygen Therapy Acute Home Oxygen Therapy Diagnosis for Oxygen Therapy (1) Chronic obstructive pulmonary disease: Comment: Home O2 1L at rest, 3L with activity Code(s): J44.9 - Chronic obstructive pulmonary disease, unspecified Provider Note Provider Note: Patient was admitted on 04/13/22 at 06:58 and will be discharging on 04/19/2022. Patient is desaturating with SATs of 87% on room air at rest due to COPD. Patient is desaturating with SATs of 80% on room air with activity due to COPD. Alternative therapies have been attempted and have not been successful in maintaining the patient's saturation level above 88%. Supplemental O2 is required. This patient is mobile within the home and requires portability.
--- NOTE | 2022-04-19 14:28 | PC.NURSE ---
End of Shift/Discharge Note: Patient has been seen by both providers. She will be discharging home once her home oxygen is set up. She did shower. She has not ate much.
--- NOTE | 2022-04-19 15:18 | PC.SOCIAL ---
Pt. will need oxygen at discharge. Orders have been sent to [facility].
--- NOTE | 2022-04-19 15:28 | RESP.RT ---
Patient up in bed on 1 Lpm Nasal cannula resting comfortably, SaO2 93%, respiratory rate 20/minute, breathing regular/easy. Bilateral breath sounds find crackles and diminished all grimm. Patient doing Aerobika and IS PRN. Home Oxygen 3 Part summary checked and confirmed same results as yesterday. Home Oxygen paper work readied for Faxing. POC education on machine, tubing, and settings. Discussed safety of using machine. Discussed Home Nebulizer patient will be picking up, use, changing filter, and nebulizers. Patient to be discharged with Home Oxygen and Nebulizer DuoNeb.
--- NOTE | 2022-04-19 19:48 | PC.NURSE ---
Discharge teaching completed via verbal and written resources. Discussed all instructions and answered questions appropriately. Daughter taking pt. home. Using 1L O2 via machine she will be using at home. Prescriptions not transmittable to pharmacy were sent w/patient in written form. Pt. left via w/c w/belongings around 1700. IV removed w/tip intact.
== END 2022-04-19 16:01 | disposition home or self-care (01) | DRG 330 ==
PROVIDERS: Family Medicine; Internal Medicine; Admitting Provider Surgery; PCP Family Medicine; Visit Provider Surgery
PROC: 0DTF4ZZ Resection of Right Large Intestine, Percutaneous Endoscopic Approach (ICD-10-PCS; principal; 2022-04-13 08:00)
DX: K63.5 Polyp of colon (principal); E46 Unspecified protein-calorie malnutrition; J44.1 Chronic obstructive pulmonary disease with (acute) exacerbation; I50.30 Unspecified diastolic (congestive) heart failure; K66.0 Peritoneal adhesions (postprocedural) (postinfection); R09.02 Hypoxemia; F17.210 Nicotine dependence, cigarettes, uncomplicated; K21.9 Gastro-esophageal reflux disease without esophagitis; K58.9 Irritable bowel syndrome, unspecified; F41.1 Generalized anxiety disorder; R60.0 Localized edema; I27.20 Pulmonary hypertension, unspecified; I71.2 Thoracic aortic aneurysm, without rupture; E78.5 Hyperlipidemia, unspecified; M79.7 Fibromyalgia; F32.A Depression, unspecified
CPT/HCPCS: 00840; 36415; 64488; 71045; 76942; 80048; 80053; 85025; 88309; 93306; 93970; 94640; 94664; 94761; 97161; A9270; C9290; J0131; J0330; J1100; J1170; J1335; J1650; J2250; J2370; J2405; J2704; J3010; J3490; J7120; J7512; J7626; S4990

== ENCOUNTER 2022-04-26 16:45 | Inpatient (IN) | payer OTHER, SELFPAY ==
--- NOTE | 2022-04-26 15:00 | CRLHL7_ITS ---
For Patients: As a result of the 21st Century Cures Act, medical imaging exams and procedure reports are released immediately into your electronic medical record. You may view this report before your referring provider. If you have questions, please contact your health care provider. INDICATION: Abdominal pain and nausea/vomiting after colectomy. TECHNIQUE: CT abdomen and pelvis acquired with 54 mL Isovue 370 IV contrast. Coronal and sagittal reformats were generated. COMPARISON: None. FINDINGS: Lower chest: Small sliding hiatal hernia. Liver: Unremarkable. Gallbladder and bile ducts: Surgically absent gallbladder. Normal caliber bile ducts. Spleen: Unremarkable. Pancreas: Fluid density lesion in the pancreas appears to project exophytically and measures approximately 1.2 x 1.1 cm (2/39). No solid pancreatic masses or ductal dilation. Calcifications in the region of the pancreatic head are nonspecific, but could be the result of prior pancreatitis. Adrenal glands: Unremarkable. No nodules. Kidneys and Ureters: Unremarkable. No suspicious masses, stones, or hydronephrosis. Lymph Nodes and Retroperitoneum: Unremarkable. Vasculature: Unremarkable. GI tract: Anastomosis in the right lower quadrant is suggestive of ileocecectomy, with ileocecal anastomosis. Fascial defect to the right of midline could be from prior ileostomy. The distal colon is decompressed and small in caliber. Small bowel loops proximal to the anastomosis are dilated and fluid-filled. The duodenum is mostly normal in caliber. Peritoneum/Abdominal Wall: Small volume of free fluid along the right hepatic border and in the pelvis. Pelvic Viscera: Unremarkable. Bladder: Unremarkable. Bones: Unremarkable for age. IMPRESSION: 1. Findings suggest ileocecectomy, with dilated proximal small bowel loops which could indicate postoperative ileus or early bowel obstruction. 2. A cystic lesion in the pancreatic body projects exophytically and is nonspecific. This could be a small pseudocyst or cystic lesion. Calcifications in the head suggest prior pancreatitis. Please note that all CT scans at this facility use dose modulation, iterative reconstruction, and/or weight-based dosing when appropriate to reduce radiation dose to as low as reasonably achievable. Dictated by Adair Romero MD @ 04/26/2022 4:07:15 PM (Electronically Signed)
--- NOTE | 2022-04-26 17:54 | PM.GSHP ---
History of Present Illness History of Present Illness Date Seen: 04/26/22 Chief complaint: unspecified abdominal pain Narrative: Bianca Wang is a 66 year old female Two weeks s/p laparoscopic right hemicolectomy and is admitted to the hospital with partial small bowel obstruction. Patient states that she was doing well after her discharge last Tuesday. However yesterday she woke up with abdominal pain. She also had nausea and vomited yesterday and 1 time today. She continued to pass gas and had 2 bowel movements yesterday. She did not eat much food yesterday. But was tolerating regular diet up until yesterday. Patient and her daughter called our clinic. Patient was then referred for CT scan. Her abdominal CT was obtained today and showed dilated loops of small bowel with no clear transition point. Her large intestine on the left side was largely decompressed. There was also layering fluid collection noted on the right side of the abdomen with no evidence of an abscess. These findings were thought to be due to early small-bowel obstruction. Review of Systems Narrative: General: no fevers HENT: no problems swallowing CV: Patient was discharged home on oxygen and continues to use 1-1.5 L of oxygen. Resp: no cough GI: See above : no dysuria, no increased urinary frequency, no hematuria Skin: no new rashes Musculoskeletal: no back pain Neuro: no muscle weakness Psyche: no depression, no anxiety PFSH PFSH Medical History Ascending aortic aneurysm Chronic obstructive pulmonary disease Depression Diastolic dysfunction, left ventricle Echocardiogram abnormal Gastroesophageal reflux disease History of migraine Hyperlipidemia Polyp of ascending colon Pulmonary hypertension Tobacco dependence Surgical History H/O: section History of umbilical hernia repair S/P right hemicolectomy S/P tubal ligation Status post appendectomy (2004) Status post laparoscopic cholecystectomy (03/07/18) Family History Father Type 2 diabetes mellitus Brother Type 2 diabetes mellitus Social History Narrative: Single, 3 kids, retired 1/2 ppd smoker Social EtOH retired Smoking Status: Current every day smoker What tobacco products do you use: cigarettes Do you use any of these nicotine containing products: None How often do you have a drink containing alcohol: monthly or less How many standard drinks containing alcohol do you have on a typical day: 1 or 2 AUDIT-C Alcohol total score: 1 Non-prescribed substance use: denies use Caffeine: Yes service: No Meds Home Medications and Allergies Home Medications Medication Instructions Recorded Confirmed Type albuterol sulfate 90 mcg/actuation 2 inh inhalation Q4-6H PRN 03/24/22 04/22/22 History aerosol inhaler celecoxib 200 mg capsule 200 mg PO BID 03/24/22 04/22/22 History duloxetine 60 mg capsule,delayed 60 mg PO DAILY 03/24/22 04/22/22 History release ergocalciferol (vitamin D2) 1,250 50,000 unit PO .Once Weekly 03/24/22 04/22/22 History mcg (50,000 unit) capsule famotidine 20 mg tablet 20 mg PO BID PRN 03/24/22 04/22/22 History fluoxetine 40 mg capsule 40 mg PO DAILY 03/24/22 04/22/22 History fluticasone 500 mcg-salmeterol 50 1 inh inhalation BID 03/24/22 04/22/22 History mcg/dose blistr powdr for inhalation lorazepam 1 mg tablet 1 mg PO BID PRN 03/24/22 04/22/22 History tiotropium bromide 18 mcg capsule 18 mcg inhalation DAILY 03/24/22 04/22/22 History with inhalation device Allergies Allergy/AdvReac Type Severity Reaction Status Date / Time cefadroxil Allergy Severe anaphylacic Verified 04/22/22 13:42 shock bupropion Allergy Intermediate increased Verified 04/22/22 13:42 depression and shaking Erythromycin Allergy Intermediate stomach Uncoded 04/22/22 13:42 upset Exam Narrative: Exam Narrative: General appearance: Alert, cooperative, and in no distress Pulmonary: Chest symmetric, lungs clear bilaterally Cardiovascular Heart: Regular rate and rhythm, S1, S2, no murmurs/rubs/gallops Gastrointestinal Abdominal: soft, not distended although patient states that it is bigger than normal for her. Mildly tender to palpation in the left lower quadrant, not tender to percussion throughout the abdomen. Incisions are healing well with no surrounding erythema. Skin: Normal skin color, texture, and turgor. No rashes or lesions. Psychiatric: Alert, cooperative, normal affect. Results Results Abdomen CT scan report/results: report reviewed and image reviewed Assessment and Plan Assessment and plan (1) Partial small bowel obstruction: Status: Acute (2) Chronic obstructive pulmonary disease: Problem comment: Home O2 1L at rest, 3L with activity Status: Acute Plan 66-year-old female s/p right hemicolectomy 2 weeks ago now presents with partial small bowel obstruction. I discussed with the patient and her daughter her CT findings. She does have dilated loops of small intestine And she continues to pass gas. I discussed with the patient that she should only take sips of clears or ice chips for now. Will control her pain with Percocet. Patient will continue using oxygen at the same rate as at home (1 L at rest). We will obtain a CBC and BMP today. Patient will also be started on PPI given her increased acid reflux.
[2022-04-26 18:04] LABS: SARS PCR* Negative SARS-CoV-2 (Negative)
[2022-04-26 18:11] VITALS: BP 95/65; PULSE 98; RESP 18; TEMP 36.9; O2SAT 96; BMI 19.7
[2022-04-26] MEDS: PANTOPRAZOLE SODIUM 40 MG INJ IVP (18:42)
[2022-04-26] MEDS: OxyCODONE/APAP 5-325 TABLET PO (18:42)
[2022-04-26] MEDS: NICOTINE 21 MG PATCH 1 PATCH TRANSDERMA (18:42)
[2022-04-26] MEDS: IPRAT-ALBUT 0.5-2.5 MG/3 ML NEB 1 NEB IH (20:13)
[2022-04-26] MEDS: LACTATED RINGERS 1000 ML 1,000 ML 100 ML IV (20:13)
[2022-04-26] MEDS: FLUTICASONE PROPION SALMETEROL 1 EACH IH (20:23)
[2022-04-26 20:35] LABS: Eosinophils Percent Auto 0.1 % (0.0-7.0); Hematocrit 37.4 % (33.0-51.0); Hemoglobin* 12.3 gm/dL (12.0-16.0); Immature Granulocytes Abs Auto 0.06 K/uL (0.00-0.30); Mean Corpuscular HGB Conc 33 gm/dL (32-36); Mean Corpuscular Hemoglobin 29 pg (26-34); Mean Corpuscular Volume 90 fL (80-100); Monocytes Percent Auto 4.7 % (0.0-11.0); Neutrophils Percent Auto 74.9 % (42.0-72.0); Platelet Count* 509 K/uL (140-440); RDW Coefficient of Variation % 13.7 % (11.5-15.5); Red Blood Count 4.18 m/uL (4.00-5.20); White Blood Count* 20.63 K/uL (4.50-11.00)
[2022-04-26 20:40] LABS: Slide Review Reflex No
[2022-04-26 20:53] LABS: Chloride* 96 mmol/L (96-114); Potassium* 4.2 mmol/L (3.6-5.1); Sodium* 131 mmol/L (135-149)
[2022-04-26 20:55] LABS: Creatinine* 0.8 mg/dL (0.5-1.5); Est. Creatinine Clearance* 44.34; Estimated Glomerular Filt Rate 80 ml/min
[2022-04-26 20:56] LABS: Blood Urea Nitrogen* 20 mg/dL (7-30); Calcium* 9.6 mg/dL (8.4-10.6); Carbon Dioxide* 30 mmol/L (20-32); Glucose* 131 mg/dL (60-115)
[2022-04-26 21:14] VITALS: BP 99/63; PULSE 84; RESP 18; TEMP 36.9; O2SAT 97
--- NOTE | 2022-04-26 21:38 | CRLHL7_ITS ---
For Patients: As a result of the Century Cures Act, medical imaging exams and procedure reports are released immediately into your electronic medical record. You may view this report before your referring provider. If you have questions, please contact your health care provider. Indication: Leukocytosis, small-bowel obstruction. Technique: Chest 1 view Comparison: April 17, 2022 Findings/Impression: Cardiovascular and mediastinum: Heart size and vasculature are normal in caliber and appearance. Mediastinum is within normal limits. Lungs and pleural space: Lungs are clear. No sign of infiltrate or mass. No sign of pleural effusion. No pneumothorax. Bones and soft tissues: No acute osseous findings. Mild levoscoliosis of the mid thoracic spine. Status post cholecystectomy. Dictated by Franca Joya MD @ 04/26/2022 10:58:48 PM (Electronically Signed)
[2022-04-26] MEDS: 0.9 % SODIUM CHLORIDE 1000 ml 1,000 ML 100 ML IV (21:40)
--- NOTE | 2022-04-26 22:11 | P.IMCN_ITS ---
Date of Consult Consult date: 04/26/22 Requesting Physician: General Surgery Primary Care Provider: Robert Riley MD Consult Narrative Reason for consult: Leukocytosis Narrative: Bianca Wang is a 66 year old female who presented to the hospital today her for a 2 day history of abdominal pain, nausea, and vomiting. Associated symptoms also include increased acid reflux. She was passing flatus and stool yesterday, she has not had a BM today, but has intermittently passed flatus. Patient called Dr. Hartman of general surgery today, given her recent surgery (right hemicolectomy for colonic polyps on 04/13/2022), who arrange for a CT scan, which exhibited concerns for early small-bowel obstruction. Patient was admitted to the hospital for management. Admission labs exhibit mild hyponatremia (131 - was 134 during recent hospital stay) and leukocytosis with white blood count of 20. Radha denies any fevers, cough, sputum production, dysuria, significant diarrhea, or skin changes. She actually had been feeling great until yesterday. She was discharged from the hospital one week ago, placed on 3 days of prednisone upon discharge, has not been on steroids for the past 4 days. During hospital stay for her hemicolectomy, she was found to be hypoxic, and was started on supplemental oxygen. She has presumed COPD given radiographic findings and long smoking history, has never had PFTs. She has remained abstinent from cigarettes since hospital discharge 1 week ago. She has not yet seen pulmonology nor had PFTs as an outpatient. Other comorbidities listed below. Review of Systems Status of ROS: Reports: 10 or more systems reviewed and unremarkable except as noted in History and below PFSH PFSH Medical History Ascending aortic aneurysm Chronic obstructive pulmonary disease Depression Diastolic dysfunction, left ventricle Echocardiogram abnormal Gastroesophageal reflux disease History of migraine Hyperlipidemia Polyp of ascending colon Pulmonary hypertension Tobacco dependence Surgical History H/O: section History of umbilical hernia repair S/P right hemicolectomy S/P tubal ligation Status post appendectomy (2004) Status post laparoscopic cholecystectomy (03/07/18) Family History Father Type 2 diabetes mellitus Brother Type 2 diabetes mellitus Social History Narrative: Single, 3 kids, retired 1/2 ppd smoker Social EtOH retired Smoking Status: Former smoker What tobacco products do you use: cigarettes Smoking quit date/years: <= 15 years ago Do you use any of these nicotine containing products: None Second hand tobacco smoke exposure: No How often do you have a drink containing alcohol: monthly or less How many standard drinks containing alcohol do you have on a typical day: 1 or 2 AUDIT-C Alcohol total score: 1 Non-prescribed substance use: denies use Caffeine: Yes service: No Meds Home Medications and Allergies Home Medications Medication Instructions Recorded Confirmed Type albuterol sulfate 90 mcg/actuation 2 inh inhalation Q4-6H PRN 03/24/22 04/22/22 History aerosol inhaler celecoxib 200 mg capsule 200 mg PO BID 03/24/22 04/22/22 History duloxetine 60 mg capsule,delayed 60 mg PO DAILY 03/24/22 04/22/22 History release ergocalciferol (vitamin D2) 1,250 50,000 unit PO .Once Weekly 03/24/22 04/22/22 History mcg (50,000 unit) capsule famotidine 20 mg tablet 20 mg PO BID PRN 03/24/22 04/22/22 History fluoxetine 40 mg capsule 40 mg PO DAILY 03/24/22 04/22/22 History fluticasone 500 mcg-salmeterol 50 1 inh inhalation BID 03/24/22 04/22/22 History mcg/dose blistr powdr for inhalation lorazepam 1 mg tablet 1 mg PO BID PRN 03/24/22 04/22/22 History tiotropium bromide 18 mcg capsule 18 mcg inhalation DAILY 03/24/22 04/22/22 History with inhalation device Allergies Allergy/AdvReac Type Severity Reaction Status Date / Time cefadroxil Allergy Severe anaphylacic Verified 04/22/22 13:42 shock bupropion Allergy Intermediate increased Verified 04/22/22 13:42 depression and shaking Erythromycin Allergy Intermediate stomach Uncoded 04/22/22 13:42 upset Exam Narrative: Exam Narrative: GEN: Alert and oriented, lying comfortably in bed and speaking in full sentences without dyspnea HEENT: Normal external ears, EOMIs bilaterally, no scleral icterus CV: RRR, No concerning murmurs, rubs, or gallops R: No concerning wheezing, rales, or rhonchi. Air movement decreased bilaterally Ext: wwp, no concerning edema Skin: Scattered SKs of trunk, incisions from recent surgery exhibit no signs or symptoms of cellulitis Neuro: Nonfocal, no resting tremor Psych: Appropriate Const: Vital Signs, click to edit/add: Vital Signs - 24 hr 04/26/22 18:11 04/26/22 21:14 Temperature 98.4 F 98.4 F Pulse Rate [Right Pulse Oximeter] 98 84 Respiratory Rate 18 18 Blood Pressure [Ri ght Arm] 95/65 99/63 Pulse Oximetry 96 97 Oxygen Delivery Me thod Nasal Cannula Nasal Cannula Oxygen Flow Rate 1 1 Labs Labs: Short CBC 04/26/22 Range/Units 20:30 WBC 20.63 H (4.50-11.00) K/uL Hgb 12.3 (12.0-16.0) gm/dL Hct 37.4 (33.0-51.0) % Plt Count 509 H (140-440) K/uL BMP 04/26/22 20:30 Sodium 131 L Potassium 4.2 Chloride 96 Carbon Dioxide 30 BUN 20 Creatinine 0.8 Glucose 131 H Calcium 9.6 Assessment and Plan Assessment and plan (1) Partial small bowel obstruction: Status: Acute (2) Leukocytosis: Status: Acute (3) Chronic obstructive pulmonary disease: Problem comment: Home O2 1L at rest, 3L with activity Status: Acute (4) Gastroesophageal reflux disease: Status: Chronic (5) Hyponatremia: Status: Acute Plan 66-year-old female with small-bowel obstruction, found to have leukocytosis and hyponatremia on admission initial labs: 1. Leukocytosis: No signs or symptoms of acute infectious process, will obtain CXR and follow WBC. 2. Hyponatremia, mild: Anticipate this will improve with NPO status and low- dose normal saline administration. On chart review, patient's baseline sodium was 137 until 02/2022. If no improvement with treatments above, consider further workup with labs, chest CT. 3. COPD: Continue supplemental oxygen, no evidence of acute exacerbation. Outpatient Pulmonary followup. 4. Continue IV PPI for GERD symptoms.
[2022-04-26 23:00] VITALS: PULSE 84; RESP 18
[2022-04-27] VITALS (8 sets, daily range): BP systolic 94–108; BP diastolic 52–62; PULSE 84–96; RESP 16–20; TEMP 36.5–36.9; O2SAT 92–94
[2022-04-27] MEDS: OxyCODONE/APAP 5-325 TABLET PO ×4 (00:36→19:41)
--- NOTE | 2022-04-27 05:57 | PC.NURSE ---
Alert and oriented x3. On 1L NC. Lungs are clear bilaetrally. Bowel sounds hypoactive all quadrants. No BM overnight. Abd pain managed with Percocet. Ambulating fine with SBA.
[2022-04-27 06:39] LABS: Basophils Percent Auto 0.2 % (0.0-3.0); Eosinophils Percent Auto 0.5 % (0.0-7.0); Hematocrit 34.9 % (33.0-51.0); Hemoglobin* 11.7 gm/dL (12.0-16.0); Immature Granulocytes Abs Auto 0.06 K/uL (0.00-0.30); Lymphocytes Percent Auto 27.2 % (20-44); Mean Corpuscular HGB Conc 34 gm/dL (32-36); Mean Corpuscular Hemoglobin 30 pg (26-34); Mean Corpuscular Volume 90 fL (80-100); Neutrophils Percent Auto 64.7 % (42.0-72.0); Platelet Count* 502 K/uL (140-440); RDW Coefficient of Variation % 13.8 % (11.5-15.5); White Blood Count* 15.64 K/uL (4.50-11.00)
[2022-04-27 06:59] LABS: Albumin* 3.4 g/dL (3.3-5.0); Chloride* 99 mmol/L (96-114)
[2022-04-27 07:00] LABS: Potassium* 3.5 mmol/L (3.6-5.1); Sodium* 132 mmol/L (135-149)
[2022-04-27 07:02] LABS: Alkaline Phosphatase* 70 U/L (40-150); Aspartate Amino Transferase* 19 U/L (12-35); Bilirubin Total* 0.7 mg/dL (0.1-1.5); Blood Urea Nitrogen* 19 mg/dL (7-30); Carbon Dioxide* 29 mmol/L (20-32); Creatinine* 0.8 mg/dL (0.5-1.5); Est. Creatinine Clearance* 44.34; Estimated Glomerular Filt Rate 80 ml/min; Total Protein* 6.2 g/dL (6.0-8.3)
[2022-04-27 07:03] LABS: Alanine Aminotransferase* 18 U/L (4-35); Calcium* 9.3 mg/dL (8.4-10.6); Glucose* 121 mg/dL (60-115)
[2022-04-27 07:09] LABS: Slide Review Reflex No
[2022-04-27] MEDS: 0.9 % SODIUM CHLORIDE 1000 ml 1,000 ML 100 ML IV (07:36)
[2022-04-27] MEDS: ONDANSETRON 2 MG/ML inj IVP ×2 (07:42→19:41)
--- NOTE | 2022-04-27 09:06 | PM.GSPN ---
Subjective Subjective Date Seen: 04/27/22 Interval history: Patient did well overnight. She still complains of abdominal pain that is similar to what it was yesterday. She did not have any further episodes of vomiting. She did pass gas yesterday. She has been taking pain medication and that has been controlling her pain. Exam Narrative: Exam Narrative: Abdomen: Soft, not distended, minimally tender to percussion and palpation in the left lower quadrant but nowhere else. surgical incisions are healing well with no erythema. The right paramedian incision S mindy-incisional edema and the tissues still appears raised around the incision. This is similar to how it appeared postoperatively. Const: Vital Signs, click to edit/add: Vital Signs - 24 hr 04/26/22 18:11 04/26/22 21:14 04/26/22 23:00 Temperature 98.4 F 98.4 F Pulse Rate [Right Pulse Oximeter] 98 84 84 Respiratory Rate 18 18 18 Blood Pressure [Ri ght Arm] 95/65 99/63 Pulse Oximetry 96 97 Oxygen Delivery Me thod Nasal Cannula Nasal Cannula Oxygen Flow Rate 1 1 04/27/22 01:00 04/27/22 05:00 Temperature 98.4 F 98.0 F Pulse Rate [Right Pulse Oximeter] 96 84 Respiratory Rate 18 18 Blood Pressure [Ri ght Arm] 108/60 105/62 Pulse Oximetry 94 94 Oxygen Delivery Me thod Nasal Cannula Nasal Cannula Oxygen Flow Rate 1 1 Labs/Imaging Labs Labs: WBC yesterday at 20 down to 15 today. Progress Note: A&P Assessment and plan (1) Partial small bowel obstruction: Status: Acute Assessment and Plan: 66-year-old female admitted with partial small bowel obstruction. Patient did well overnight. She did not have any other episodes of vomiting. She continues to pass gas. Her clinical exam is slightly better today compared to yesterday although patient does not feel like her pain has changed. Leukocytosis slightly improved today. Patient is not on antibiotics. Her chest x-ray looked clear yesterday. Will continue IV fluids and clears. I did ask the patient to slowly advance her clears and do sips of clears throughout the day to see if she tolerates it. (2) Leukocytosis: Status: Acute
[2022-04-27] MEDS: DULOXETINE 30 MG CAPSULE DR 60 MG PO (09:48)
[2022-04-27] MEDS: LORazepam 1 MG TABLET PO ×2 (09:48→20:32)
[2022-04-27] MEDS: FLUOXETINE HCL 20 MG CAPSULE 40 MG PO (09:49)
[2022-04-27] MEDS: IPRAT-ALBUT 0.5-2.5 MG/3 ML NEB 1 NEB IH ×3 (09:50→18:39)
--- NOTE | 2022-04-27 11:17 | P.IMPN_ITS ---
Progress Note: A&P Assessment and plan (1) Partial small bowel obstruction: Status: Acute Assessment and Plan: Symptomatically better today. Advance diet per surgery. Ambulate. (2) Chronic obstructive pulmonary disease: Problem details: Home O2 1L at rest, 3L with activity Status: Acute Assessment and Plan: Continue normal home oxygen (3) Hyponatremia: Status: Acute Assessment and Plan: Stable, chronic (4) Leukocytosis: Status: Acute Assessment and Plan: Improved, continue to follow (5) Generalized anxiety disorder: Status: Acute Assessment and Plan: Resume lorazepam. (6) Tremor: Problem details: Mild intermittent head tremor, possibly related to essential tremor, possibly exacerbated by missing usual lorazepam doses Status: Acute Assessment and Plan: Resume lorazepam. Continue to monitor. Subjective Date Seen: 04/27/22 Interval history: 66-year-old female seen in followup of small bowel obstruction, COPD and other medical concerns. Patient is approximately 2 weeks status post laparoscopic right hemicolectomy. Postoperatively she has generally done well up until 2 days ago when she started having abdominal pain and vomiting. This continued until yesterday when she was admitted for small-bowel obstruction. She has been receiving antiemetics and pain medications. She reports generally feeling better today. She is receiving IV fluids and is on clear liquids. She has tolerated clear liquids without vomiting. She has not yet had a bowel movement. She does report she passed gas last night. She reports her breathing is fine. She is on her normal dose of 1.5 L of oxygen. She has no fever. Her daughter noted that she had some tremor in her head. Patient notes that she occasionally will have a tremor prior to this. She has never been diagnosed with a movement disorder. She notes that she is on chronic lorazepam 1 mg twice daily. She has not had that yet. Exam Narrative: Exam Narrative: She is alert and appears in no distress. She gives her own history. She is oriented to her circumstances. Eyes normal. No head tremor is observed. Speech is normal without tremor. No hand tremor is noted. Respirations with diminished breath sounds throughout all lung grimm. No wheezing rales or rhonchi. Cardiovascular: S1, S2, regular rate and rhythm. No murmur gallop or rub. Abdomen: Minimal bowel sounds. Abdominal incisions well healed without significant erythema or drainage. She has some slight bruising underneath her right paramedian incision. She has mild tenderness just underneath her right paramedian incision in her right lower quadrant. Minimal tenderness elsewhere in her abdomen. Extremities without edema. She has intact pedal pulses. She moves all 4 extremities well. Const: Vital Signs, click to edit/add: Vital Signs - 24 hr 04/26/22 18:11 04/26/22 21:14 04/26/22 23:00 Temperature 98.4 F 98.4 F Pulse Rate [Right Pulse Oximeter] 98 84 84 Respiratory Rate 18 18 18 Blood Pressure [Ri ght Arm] 95/65 99/63 Pulse Oximetry 96 97 Oxygen Delivery Me thod Nasal Cannula Nasal Cannula Oxygen Flow Rate 1 1 04/27/22 01:00 04/27/22 05:00 Temperature 98.4 F 98.0 F Pulse Rate [Right Pulse Oximeter] 96 84 Respiratory Rate 18 18 Blood Pressure [Ri ght Arm] 108/60 105/62 Pulse Oximetry 94 94 Oxygen Delivery Me thod Nasal Cannula Nasal Cannula Oxygen Flow Rate 1 1 Documenting provider has reviewed patient's vital signs: yes Labs Labs: Laboratory Results - last 24 hr 04/26/22 04/26/22 04/26/22 16:48 20:30 20:30 WBC 20.63 H RBC 4.18 Hgb 12.3 Hct 37.4 MCV 90 MCH 29 MCHC 33 RDW Coeff of Riri 13.7 Plt Count 509 H Neut % (Auto) 74.9 H Lymph % (Auto) 20.0 [place] % (Auto) 4.7 Eos % (Auto) 0.1 Baso % (Auto) 0.0 Neut # (Auto) 15.50 H Lymph # (Auto) 4.10 H [place] # (Auto) 1.00 H Eos # (Auto) 0.00 Baso # (Auto) 0.00 Abs Immat Gran (auto) 0.06 Sodium 131 L Potassium 4.2 Chloride 96 Carbon Dioxide 30 BUN 20 Creatinine 0.8 Estimated Creat Clear 44.34 Estimated GFR 80 Glucose 131 H Calcium 9.6 Total Bilirubin AST ALT Alkaline Phosphatase Total Protein Albumin SARS-CoV-2 (PCR) Negative SARS-CoV-2 04/27/22 04/27/22 06:10 06:10 WBC 15.64 H RBC 3.90 L Hgb 11.7 L Hct 34.9 MCV 90 MCH 30 MCHC 34 RDW Coeff of Riri 13.8 Plt Count 502 H Neut % (Auto) 64.7 Lymph % (Auto) 27.2 [place] % (Auto) 7.0 Eos % (Auto) 0.5 Baso % (Auto) 0.2 Neut # (Auto) 10.10 H Lymph # (Auto) 4.30 H [place] # (Auto) 1.10 H Eos # (Auto) 0.10 Baso # (Auto) 0.00 Abs Immat Gran (auto) 0.06 Sodium 132 L Potassium 3.5 L Chloride 99 Carbon Dioxide 29 BUN 19 Creatinine 0.8 Estimated Creat Clear 44.34 Estimated GFR 80 Glucose 121 H Calcium 9.3 Total Bilirubin 0.7 AST 19 ALT 18 Alkaline Phosphatase 70 Total Protein 6.2 Albumin 3.4 SARS-CoV-2 (PCR)
[2022-04-27] MEDS: 0.9 % SODIUM CH + KCL 20 mEq/L 1,000 ML 100 ML IV ×2 (13:39→22:55)
[2022-04-27] MEDS: POTASSIUM BICARB 25 MEQ EFFERVESCENT TAB PO (13:40)
--- NOTE | 2022-04-27 14:13 | PC.NURSE ---
Pt eval by Dr. Puri. Please see eMar for medications provided. New order to change her IVF, potassium 25 mEq effervescent tablet this afternoon. Dtr Ali present & supportive at bedside. Oxygen continues on 1L/NC. Pt up to walk in hallway once with assist of 2 CNAs. Enc. PO intake and ambulation. Sips of clear and ice chips. Percocet provided for pain management. Continue POC.
[2022-04-27] MEDS: NICOTINE 21 MG PATCH 1 PATCH TRANSDERMA (18:38)
[2022-04-27] MEDS: ENOXAPARIN 40 MG/0.4 ML INJ SUBCUT (18:39)
--- NOTE | 2022-04-27 19:16 | PC.NURSE ---
end of shift. pt has been pleasant abd pain is 1-3/10 and she did not want anything for pain. BS are hypo active and no gas . she is up walking. she is on home 02 1-3 L. scds are on and off. she is drinking and voiding.
[2022-04-27] MEDS: PANTOPRAZOLE SODIUM 40 MG INJ IVP (23:47)
[2022-04-28] VITALS (7 sets, daily range): BP systolic 107–144; BP diastolic 62–82; PULSE 94–100; RESP 18–20; TEMP 36.4–36.6; O2SAT 89–92
[2022-04-28] MEDS: OxyCODONE/APAP 5-325 TABLET PO ×4 (02:04→21:19)
--- NOTE | 2022-04-28 05:44 | PC.NURSE ---
Shift 7p-7a: Pt. AOx4, following commands, VSS on 1LNC for chronic oxygen use. Pt. receiving NS+20mEq KCL @ 100mL/hr, drinking liquids well and tolerating intake w/o episodes of vomiting. Pt. ambulating SBA to toilet and in room w/o difficulty, voiding well. No BM's during shift. Pt. c/o reflux, Dr. Glaser notified. wrote for protonix IV once and restarted pt.'s pepcid for this AM. Pt. denies N/V at this time, but still having discomfort with reflux when awake. Pt. states she feels full in her stomach. Pt.'s abdominal incision OSWALD w/o redness or drainage. Pt. c/o of pain 03/05 with PRN oxycodone-tylenol administered with relief.
[2022-04-28 07:01] LABS: Basophils Absolute Auto 0.02 K/uL (0.00-0.30); Basophils Percent Auto 0.2 % (0.0-3.0); Eosinophils Absolute Auto 0.02 K/uL (0.00-0.50); Eosinophils Percent Auto 0.2 % (0.0-7.0); Hematocrit 34.1 % (33.0-51.0); Hemoglobin* 11.1 gm/dL (12.0-16.0); Immature Granulocytes Abs Auto 0.01 K/uL (0.00-0.30); Lymphocytes Absolute Auto 2.85 K/uL (0.90-2.90); Lymphocytes Percent Auto 33.1 % (20-44); Mean Corpuscular HGB Conc 33 gm/dL (32-36); Mean Corpuscular Hemoglobin 30 pg (26-34); Mean Corpuscular Volume 92 fL (80-100); Neutrophils Absolute Auto 4.84 K/uL (1.7-7.0); Neutrophils Percent Auto 56.4 % (42.0-72.0); Platelet Count* 465 K/uL (140-440); RDW Coefficient of Variation % 13.8 % (11.5-15.5); Red Blood Count 3.72 m/uL (4.00-5.20)
[2022-04-28 07:11] LABS: Slide Review Reflex No
[2022-04-28 07:13] LABS: Chloride* 102 mmol/L (96-114)
[2022-04-28 07:14] LABS: Potassium* 3.9 mmol/L (3.6-5.1); Sodium* 133 mmol/L (135-149)
[2022-04-28 07:16] LABS: Creatinine* 0.7 mg/dL (0.5-1.5); Est. Creatinine Clearance* 44.34; Estimated Glomerular Filt Rate 94 ml/min
[2022-04-28 07:17] LABS: Blood Urea Nitrogen* 20 mg/dL (7-30); Calcium* 8.6 mg/dL (8.4-10.6); Carbon Dioxide* 27 mmol/L (20-32); Glucose* 118 mg/dL (60-115)
[2022-04-28] MEDS: ONDANSETRON 2 MG/ML inj IVP ×2 (08:13→21:20)
[2022-04-28] MEDS: IPRAT-ALBUT 0.5-2.5 MG/3 ML NEB 1 NEB IH ×4 (08:42→21:21)
[2022-04-28] MEDS: DULOXETINE 30 MG CAPSULE DR 60 MG PO (09:29)
[2022-04-28] MEDS: 0.9 % SODIUM CH + KCL 20 mEq/L 1,000 ML 50 ML IV (09:30)
[2022-04-28] MEDS: FLUOXETINE HCL 20 MG CAPSULE 40 MG PO (09:30)
[2022-04-28] MEDS: FAMOTIDINE 20 MG TABLET PO (09:30)
[2022-04-28] MEDS: LORazepam 1 MG TABLET PO ×2 (09:30→21:19)
--- NOTE | 2022-04-28 10:26 | P.GSPN_ITS ---
Subjective Subjective Date Seen: 04/28/22 Interval history: Patient is doing okay. She tolerated some clears yesterday with no vomiting. She still complains of acid reflux and feeling of acid in the back of her throat. She states that she usually feels that when she needs to vomit. Al though she does deny vomiting. She has not passed gas yesterday or today. She has been ambulating. Exam Narrative: Exam Narrative: Abdomen: Soft, minimally distended, minimally tender to palpation in the left lower quadrant, improved from her initial admission. surgical incisions are healing well with no erythema. There is still edematous raised appearance of the right paramedian incision. Const: Vital Signs, click to edit/add: Vital Signs - 24 hr 04/27/22 13:00 04/27/22 16:00 04/27/22 16:00 Temperature 98.3 F 98.2 F Pulse Rate [Right Pulse Oximeter] 87 94 94 Respiratory Rate 18 18 Blood Pressure [Ri ght Arm] 97/57 L 97/57 L Pulse Oximetry 93 92 Oxygen Delivery Me thod Nasal Cannula Nasal Cannula Oxygen Flow Rate 1 1 04/27/22 19:00 04/27/22 22:36 04/27/22 23:00 Temperature 97.7 F 98.3 F Pulse Rate [Right Pulse Oximeter] 93 90 Respiratory Rate 20 20 18 Blood Pressure [Ri ght Arm] 95/62 94/52 L Pulse Oximetry 93 92 Oxygen Delivery Me thod Nasal Cannula Nasal Cannula Oxygen Flow Rate 1 1 04/28/22 02:48 04/28/22 07:00 04/28/22 07:00 Temperature 97.9 F 97.6 F Pulse Rate [Right Pulse Oximeter] 99 95 95 Respiratory Rate 18 18 18 Blood Pressure [Ri ght Arm] 107/67 144/82 H Pulse Oximetry 92 90 Oxygen Delivery Me thod Nasal Cannula Nasal Cannula Oxygen Flow Rate 1 1 Progress Note: A&P Assessment and plan (1) Partial small bowel obstruction: Problem details: Patient's abdomen is still mildly distended then she is not passing gas. Patient's WBC improved to normal today without antibiotics. We will obtain an upper GI with small-bowel follow-through. Patient is not ready to be discharged home as she is not tolerating regular diet. Status: Acute (2) S/P right hemicolectomy: Problem details: 04/13/22 Status: Acute
--- NOTE | 2022-04-28 10:43 | P.IMPN_ITS ---
Progress Note: A&P Assessment and plan (1) Partial small bowel obstruction: Problem details: Patient's abdomen is still mildly distended then she is not passing gas. Patient's WBC improved to normal today without antibiotics. We will obtain an upper GI with small-bowel follow-through. Patient is not ready to be discharged home as she is not tolerating regular diet. Status: Acute (2) S/P right hemicolectomy: Problem details: 04/13/22 Status: Acute (3) Hyponatremia: Status: Acute Assessment and Plan: Stable, chronic (4) Chronic obstructive pulmonary disease: Problem details: Home O2 1L at rest, 3L with activity Status: Acute Assessment and Plan: Doing well today, stable (5) Generalized anxiety disorder: Status: Acute Assessment and Plan: Improved on scheduled Ativan Plan Continue current plan of care. Patient is not significantly better. Per surgery will get small bowel follow-through. Time Spent With Patient Total time spent: Total time spent today is 35 minutes, 25 minutes in coordination of care and discussing with patient and other providers management of small bowel obstruction Subjective Date Seen: 04/28/22 Interval history: 58-year-old female seen in followup of small bowel obstruction and other medical problems. Last night she did have some problems with reflux. She reported that she had an acid taste in the back of her throat. She was given IV Protonix for this and then started on oral famotidine. She did not have a cough or chest pain and did not have trouble breathing associated with this. She feels like her stomach is about the same. She has been able to take in some clear liquids but she still having some abdominal pain. She has not been passing gas and has not had a bowel movement. Exam Narrative: Exam Narrative: She is alert and appears in no distress. Breathing is unlabored on 1 L per n yuriy cannula of oxygen. She is oriented to her circumstances. Respirations with diminished breath sounds throughout. No wheezing. Cardiovascular: S1, S2, regular rhythm no murmur gallop or rub. Abdomen: Minimal bowel sounds. Abdomen is mildly distended. Mild diffuse tenderness. Extremities without edema. Diminished but present pedal pulses. No rash. Const: Vital Signs, click to edit/add: Vital Signs - 24 hr 04/27/22 13:00 04/27/22 16:00 04/27/22 16:00 Temperature 98.3 F 98.2 F Pulse Rate [Right Pulse Oximeter] 87 94 94 Respiratory Rate 18 18 Blood Pressure [Ri ght Arm] 97/57 L 97/57 L Pulse Oximetry 93 92 Oxygen Delivery Me thod Nasal Cannula Nasal Cannula Oxygen Flow Rate 1 1 04/27/22 19:00 04/27/22 22:36 04/27/22 23:00 Temperature 97.7 F 98.3 F Pulse Rate [Right Pulse Oximeter] 93 90 Respiratory Rate 20 20 18 Blood Pressure [Ri ght Arm] 95/62 94/52 L Pulse Oximetry 93 92 Oxygen Delivery Me thod Nasal Cannula Nasal Cannula Oxygen Flow Rate 1 1 04/28/22 02:48 04/28/22 07:00 04/28/22 07:00 Temperature 97.9 F 97.6 F Pulse Rate [Right Pulse Oximeter] 99 95 95 Respiratory Rate 18 18 18 Blood Pressure [Ri ght Arm] 107/67 144/82 H Pulse Oximetry 92 90 Oxygen Delivery Me thod Nasal Cannula Nasal Cannula Oxygen Flow Rate 1 1 Documenting provider has reviewed patient's vital signs: yes Labs Labs: Laboratory Results - last 24 hr 04/28/22 04/28/22 06:31 06:31 WBC 8.60 RBC 3.72 L Hgb 11.1 L Hct 34.1 MCV 92 MCH 30 MCHC 33 RDW Coeff of Riri 13.8 Plt Count 465 H Neut % (Auto) 56.4 Lymph % (Auto) 33.1 [place] % (Auto) 10.0 Eos % (Auto) 0.2 Baso % (Auto) 0.2 Neut # (Auto) 4.84 Lymph # (Auto) 2.85 [place] # (Auto) 0.90 Eos # (Auto) 0.02 Baso # (Auto) 0.02 Abs Immat Gran (auto) 0.01 Sodium 133 L Potassium 3.9 Chloride 102 Carbon Dioxide 27 BUN 20 Creatinine 0.7 Estimated Creat Clear 44.34 Estimated GFR 94 Glucose 118 H Calcium 8.6
--- NOTE | 2022-04-28 14:19 | PC.NURSE ---
End of Shift: Patient pleasant and cooperative. Patient vitally stable, lungs with crackles and wheezes, BS WNL, IV running NS 20K @50 ml. Patient rated pain at most 5/10, 2 norco tabs given and 4mg of zophran. Patient walked the king x1 this shift. Patient had a few sips of clear liquid but is now NPO. Patient reports feeling like she could pass gas but has not yet. Patient urinating, has been up in chair, but now napping in bed.
[2022-04-28] MEDS: PANTOPRAZOLE SODIUM 40 MG INJ IVP (18:06)
[2022-04-28] MEDS: NICOTINE 21 MG PATCH 1 PATCH TRANSDERMA (18:06)
[2022-04-28] MEDS: ENOXAPARIN 40 MG/0.4 ML INJ SUBCUT (18:08)
[2022-04-28] MEDS: FLUTICASONE PROPION SALMETEROL 1 EACH IH (21:20)
--- NOTE | 2022-04-28 22:58 | PC.NURSE ---
End of Shift: Patient pleasant and cooperative. Afebrile. C/o reflux and frequent burping. Updated MD and order for Protonix. Intermittent nausea with no emesis, PRN Zofran given x1. Patient remains NPO. Denies passing any flatus. Up to chair and bathroom with SBA. Walking in hallway x1 this shift. Rating pain 4/10 in abdomen and PRN Percocet given x1.
[2022-04-29] VITALS (7 sets, daily range): BP systolic 104–128; BP diastolic 62–84; PULSE 92–115; RESP 18–20; TEMP 36.4–36.8; O2SAT 88–98; BMI 19.7
[2022-04-29] MEDS: OxyCODONE/APAP 5-325 TABLET PO ×2 (03:27→10:43)
[2022-04-29] MEDS: 0.9 % SODIUM CH + KCL 20 mEq/L 1,000 ML 50 ML IV (03:28)
[2022-04-29] MEDS: ONDANSETRON 2 MG/ML inj IVP ×2 (03:36→11:10)
--- NOTE | 2022-04-29 05:43 | PC.NURSE ---
[id number]: patient up with SBA due to IV pole and O2 tubing. pain meds given per EMAR. incision remains unchanged. ice to abd.
[2022-04-29] MEDS: PANTOPRAZOLE SODIUM 40 MG INJ IVP ×2 (06:21→19:41)
[2022-04-29 07:03] LABS: Eosinophils Absolute Auto 0.01 K/uL (0.00-0.50); Eosinophils Percent Auto 0.1 % (0.0-7.0); Hematocrit 35.2 % (33.0-51.0); Hemoglobin* 11.4 gm/dL (12.0-16.0); Immature Granulocytes Abs Auto 0.01 K/uL (0.00-0.30); Lymphocytes Percent Auto 38.8 % (20-44); Mean Corpuscular HGB Conc 32 gm/dL (32-36); Mean Corpuscular Hemoglobin 30 pg (26-34); Mean Corpuscular Volume 91 fL (80-100); Monocytes Percent Auto 8.2 % (0.0-11.0); Neutrophils Absolute Auto 4.76 K/uL (1.7-7.0); Neutrophils Percent Auto 52.8 % (42.0-72.0); Platelet Count* 501 K/uL (140-440); RDW Coefficient of Variation % 13.8 % (11.5-15.5); Red Blood Count 3.87 m/uL (4.00-5.20); White Blood Count* 9.02 K/uL (4.50-11.00)
[2022-04-29 07:33] LABS: Chloride* 103 mmol/L (96-114); Sodium* 136 mmol/L (135-149)
[2022-04-29 07:34] LABS: Potassium* 3.7 mmol/L (3.6-5.1)
[2022-04-29 07:36] LABS: Blood Urea Nitrogen* 21 mg/dL (7-30); Carbon Dioxide* 25 mmol/L (20-32); Creatinine* 0.6 mg/dL (0.5-1.5); Est. Creatinine Clearance* 44.34; Estimated Glomerular Filt Rate 98 ml/min
[2022-04-29 07:37] LABS: Calcium* 8.5 mg/dL (8.4-10.6); Glucose* 141 mg/dL (60-115)
--- NOTE | 2022-04-29 08:30 | CRLHL7_ITS ---
For Patients: As a result of the Century Cures Act, medical imaging exams and procedure reports are released immediately into your electronic medical record. You may view this report before your referring provider. If you have questions, please contact your health care provider. Technique: Single contrast thin barium upper GI performed followed by small-bowel follow-through. Fluoroscopy time 1 minutes 12 second. Indication: S/P RIGHT HEMICOLECTOMY 2 WEEKS AGO, NOW WITH SBO Comparison: CT 04/26/2022. Findings: Swallowing mechanism: Normal. Esophageal motility: Normal. Gastroesophageal reflux: None. Hernia: Small sliding hernia is present. Stomach: The stomach is distended with fluid. Postop changes cholecystectomy. No gastric outlet obstruction. Small bowel: Dilated loops of duodenum, jejunum and proximal/mid ileum noted with delayed transit. After 24 hours, contrast is located within mid/distal ileum without extension to the colon. No extravasation. No free air. Impression: Small-bowel obstruction involving the distal ileum corresponding to the CT. No perforation. Dictated by Robert Tarango MD @ 04/30/2022 9:59:15 AM (Electronically Signed)
[2022-04-29 08:32] LABS: Slide Review Reflex Yes
[2022-04-29 08:34] LABS: Slide Review Acceptable Review (Acceptable)
[2022-04-29] MEDS: LORazepam 1 MG TABLET PO (09:01)
[2022-04-29] MEDS: DULOXETINE 30 MG CAPSULE DR 60 MG PO (09:01)
[2022-04-29] MEDS: FLUOXETINE HCL 20 MG CAPSULE 40 MG PO (09:01)
[2022-04-29] MEDS: FLUTICASONE PROPION SALMETEROL 1 EACH IH ×2 (09:02→22:05)
--- NOTE | 2022-04-29 10:14 | P.IMPN_ITS ---
Progress Note: A&P Assessment and plan (1) Partial small bowel obstruction: Problem details: Status: Acute Assessment and Plan: Patient's abdomen is still mildly distended then she is not passing gas. Patient's WBC improved to normal today without antibiotics. We will obtain an upper GI with small-bowel follow-through. Patient is not ready to be discharged home as she is not tolerating regular diet. Patient has been NPO and appears still to have abdominal distension with no evidence of antegrade bowel function. (2) S/P right hemicolectomy: Problem details: 04/13/22 Status: Acute (3) Hyponatremia: Status: Acute Assessment and Plan: Chronic, improved. Volume status if anything a little bit dry today (4) Chronic obstructive pulmonary disease: Problem details: Home O2 1L at rest, 3L with activity Status: Acute Assessment and Plan: Stable (5) Generalized anxiety disorder: Status: Acute Assessment and Plan: Stable Plan Patient remains clinically stable but not improving with regard to her small bowel obstruction. Ongoing management recommendations per General surgery. Time Spent With Patient Total time spent: Total time spent today is 30 minutes, 20 minutes in coordination of care and discussing with patient and other providers management of bowel obstruction and hit cups and COPD Subjective Date Seen: 04/29/22 Interval history: 58-year-old female seen in followup of small bowel obstruction and other medical problems. She is having increasing problems with hiccups. No shortness of breath or cough or fever. She was able sleep last night. She has been NPO due to ongoing inability to tolerate p.o. fluids. No vomiting. No bowel movement. Not passing gas. Ongoing regular opioid treatment for abdominal pain Exam Narrative: Exam Narrative: She is alert and appears in no obvious distress. Respirations are clear to auscultation she has do decreased breath sounds. No wheezing rales or rhonchi. Cardiovascular: S1, S2, regular rate and rhythm. No murmur gallop or rub. Abdomen with minimal bowel sounds. Diffuse abdominal distension and tenderness are somewhat worse than yesterday. No edema. Const: Vital Signs, click to edit/add: Vital Signs - 24 hr 04/28/22 11:00 04/28/22 16:00 04/28/22 15:30 Temperature 97.9 F 97.9 F Pulse Rate [Right Pulse Oximeter] 100 100 100 Respiratory Rate 20 20 20 Blood Pressure [Ri ght Arm] 118/76 112/70 Pulse Oximetry 90 89 Oxygen Delivery Me thod Nasal Cannula Nasal Cannula Oxygen Flow Rate 1 1 04/28/22 20:10 04/28/22 23:00 04/29/22 00:00 Temperature 97.5 F L Pulse Rate [Right Pulse Oximeter] 94 94 Respiratory Rate 18 18 18 [facility] 113/62 Pulse Oximetry 91 Oxygen Delivery Me thod Nasal Cannula Oxygen Flow Rate 1 04/29/22 03:00 04/29/22 07:00 04/29/22 07:00 Temperature 97.8 F 98.2 F Pulse Rate [Right Pulse Oximeter] 100 107 H 107 H Respiratory Rate 18 18 18 Blood Pressure [[facility] Arm] 116/66 128/68 Pulse Oximetry 98 90 Oxygen Delivery Me thod Nasal Cannula Nasal Cannula Oxygen Flow Rate 1 1 Documenting provider has reviewed patient's vital signs: yes Labs Labs: Laboratory Results - last 24 hr 04/29/22 04/29/22 06:34 06:34 WBC 9.02 RBC 3.87 L Hgb 11.4 L Hct 35.2 MCV 91 MCH 30 MCHC 32 RDW Coeff of Riri 13.8 Plt Count 501 H Neut % (Auto) 52.8 Lymph % (Auto) 38.8 [place] % (Auto) 8.2 Eos % (Auto) 0.1 Baso % (Auto) 0.0 Neut # (Auto) 4.76 Lymph # (Auto) 3.50 H [place] # (Auto) 0.70 Eos # (Auto) 0.01 Baso # (Auto) 0.00 Abs Immat Gran (auto) 0.01 Diff Slide Review Acceptable Review Sodium 136 Potassium 3.7 Chloride 103 Carbon Dioxide 25 BUN 21 Creatinine 0.6 Estimated Creat Clear 44.34 Estimated GFR 98 Glucose 141 H Calcium 8.5
[2022-04-29] MEDS: IPRAT-ALBUT 0.5-2.5 MG/3 ML NEB 1 NEB IH ×3 (10:31→19:41)
--- NOTE | 2022-04-29 14:43 | P.GSPN_ITS ---
Subjective Subjective Date Seen: 04/29/22 Interval history: Patient had minimal gas yesterday. She had an upper GI with small-bowel follow- through and so for the contrast is going fairly slow through her dilated small bowel. Additional images are planned for later today and tomorrow but this is consistent with obstruction. Patient continues to hiccup and burp. Exam Narrative: Exam Narrative: Abdomen: Soft, distended More than yesterday, no tenderness to percussion, minimal tenderness to palpation in the left lower quadrant. no peritoneal signs. Const: Vital Signs, click to edit/add: Vital Signs - 24 hr 04/28/22 16:00 04/28/22 15:30 04/28/22 20:10 Temperature 97.9 F 97.5 F L Pulse Rate [Right Pulse Oximeter] 100 100 94 Respiratory Rate 20 20 18 Blood Pressure [Ri ght Arm] 112/70 113/62 Pulse Oximetry 89 91 Oxygen Delivery Me thod Nasal Cannula Nasal Cannula Oxygen Flow Rate 1 1 04/28/22 23:00 04/29/22 00:00 04/29/22 03:00 Temperature 97.8 F Pulse Rate [Right Pulse Oximeter] 94 100 Respiratory Rate 18 18 18 Blood Pressure [Ri ght Arm] 116/66 Pulse Oximetry 98 Oxygen Delivery Me thod Nasal Cannula Oxygen Flow Rate 1 04/29/22 07:00 04/29/22 07:00 04/29/22 11:00 Temperature 98.2 F 98.2 F Pulse Rate [Right Pulse Oximeter] 107 H 107 H 92 Respiratory Rate 18 18 20 Blood Pressure [Ri ght Arm] 128/68 121/81 Pulse Oximetry 90 88 Oxygen Delivery Me thod Nasal Cannula Nasal Cannula Oxygen Flow Rate 1 1 Progress Note: A&P Assessment and plan (1) S/P right hemicolectomy: Problem details: 04/13/22 Status: Acute (2) Small bowel obstruction: Status: Acute Plan 66-year-old female with small-bowel obstruction 2 weeks s/p right hemicolectomy. Patient does not have return of bowel function and her abdomen is distended today. She does not have peritoneal signs. Will place NG tube and keep her NPO. She can have ice chips as long as the NG tube is in place. Patient should be started on TPN since she has been NPO now for 5 days. The hospitalist will help us with arranging TPN and PICC line placement. I did discussed with the patient and her daughter extensively that doing surgery in this early postoperative period (2 weeks postop) is not advised due to the risk of creating more harm. will adjust all patient's medications to IV form if possible. I also discussed with the patient that I will be gone next week in 1 my partners will be taking care of her in my absence.
[2022-04-29 14:58] LABS: Magnesium* 1.8 mg/dL (1.5-2.6); Phosphorus* 3.4 mg/dL (2.5-4.5)
[2022-04-29] MEDS: LORazepam 2 MG/ML inj 1 MG IVP (14:58)
--- NOTE | 2022-04-29 15:18 | CRLHL7_ITS ---
For Patients: As a result of the Century Cures Act, medical imaging exams and procedure reports are released immediately into your electronic medical record. You may view this report before your referring provider. If you have questions, please contact your health care provider. INDICATION: Check placement of NG tube. TECHNIQUE: Chest 1 view(s) COMPARISON: Chest radiograph dated 04/26/2022 FINDINGS/IMPRESSION: Enteric tube tip is located in the mid esophagus, approximately at the T8-T9 vertebral body level. Recommend advancement of at least 15-20 cm to reach the gastric lumen. Cardiomediastinal silhouette and pulmonary vasculature are normal. No focal consolidation. Streaky left basilar airspace opacities, likely atelectasis. No significant pleural effusion, no definite pneumothorax. Contrast is noted within the stomach and upper bowel. Dictated by Dexter Macias MD @ 04/29/2022 4:37:09 PM (Electronically Signed)
--- NOTE | 2022-04-29 15:34 | PC.NURSE ---
End of Shift: Patient pleasant and cooperative. Patient vitally stable, lungs clear, BS WNL, IV running D KCL20 at 50ml. Patient is SBA with IV and oxygen lines. Patient has rated pain at most 5/10, 2 [place] tabs given and 8mg of zophran. NG placed at 34, draining creamy light brown fluid, initial drainage was 1200, 1 mg of ativan given pre-NG insertion.
--- NOTE | 2022-04-29 19:00 | CRLHL7_ITS ---
For Patients: As a result of the Cures Act, medical imaging exams and procedure reports are released immediately into your electronic medical record. You may view this report before your referring provider. If you have questions, please contact your health care provider. Indication: PICC line placement Technique: Grayscale ultrasound of the right basilic vein. IMPRESSION: Ultrasound guidance for right arm PICC line placement. Dictated by Robert Tarango MD @ 04/30/2022 8:55:44 AM (Electronically Signed)
--- NOTE | 2022-04-29 19:07 | CRLHL7_ITS ---
For Patients: As a result of the Century Cures Act, medical imaging exams and procedure reports are released immediately into your electronic medical record. You may view this report before your referring provider. If you have questions, please contact your health care provider. Indication: PICC placement Technique: Chest 1 view Comparison: N April 29, 2022 at 3:51 p.m. one Findings/Impression: The tip of a right-sided PICC is not clearly seen on this exam. Recommend slightly oblique view for further evaluation. There is no pneumothorax. The lungs are clear. Normal cardiomediastinal silhouette. Dictated by Franca Joya MD @ 04/29/2022 8:21:02 PM (Electronically Signed)
[2022-04-29] MEDS: ENOXAPARIN 40 MG/0.4 ML INJ SUBCUT (19:40)
[2022-04-29] MEDS: SODIUM CHLORIDE 0.9 % (FLUSH) 10 ML SYRINGE 5 ML IVF (19:41)
[2022-04-29] MEDS: NICOTINE 21 MG PATCH 1 PATCH TRANSDERMA (19:42)
--- NOTE | 2022-04-29 20:40 | CRLHL7_ITS ---
For Patients: As a result of the Century Cures Act, medical imaging exams and procedure reports are released immediately into your electronic medical record. You may view this report before your referring provider. If you have questions, please contact your health care provider. INDICATION: PICC placement. TECHNIQUE: Chest 1 views. COMPARISON: None. FINDINGS: Patient is mildly rotated. The distal tip of the PICC appears to be in the SVC. Cardiomediastinal silhouette is stable in accounting for patient rotation. Lungs are clear. Probable small left-sided pleural effusion. Enteric tube with distal tip and side port within the esophagus. Consider advancing at least 17 cm for optimal gastric positioning. IMPRESSION: PICC appears to terminate in the SVC. Dictated by Saad Moreau MD @ 04/29/2022 9:40:25 PM (Electronically Signed)
[2022-04-30] MEDS: BENZOCAINE/MENTHOL 1 EACH LOZENGE MUCOUS MEM ×3 (01:39→21:05)
[2022-04-30] MEDS: 0.9 % SODIUM CH + KCL 20 mEq/L 1,000 ML 50 ML IV (01:41)
[2022-04-30 04:45] VITALS: PULSE 104; RESP 18; O2SAT 94
[2022-04-30] MEDS: PANTOPRAZOLE SODIUM 40 MG INJ IVP ×2 (06:57→17:56)
[2022-04-30] MEDS: LORazepam 2 MG/ML inj IVP (06:57)
[2022-04-30] MEDS: SODIUM CHLORIDE 0.9 % (FLUSH) 10 ML SYRINGE 5 ML IVF ×2 (06:58→20:54)
[2022-04-30 07:00] VITALS: BP 126/68; PULSE 106; RESP 18; TEMP 37.2; O2SAT 94
[2022-04-30 07:33] LABS: Eosinophils Percent Auto 0.4 % (0.0-7.0); Hematocrit 34.3 % (33.0-51.0); Hemoglobin* 11.1 gm/dL (12.0-16.0); Immature Granulocytes Abs Auto 0.02 K/uL (0.00-0.30); Lymphocytes Percent Auto 43.7 % (20-44); Mean Corpuscular HGB Conc 32 gm/dL (32-36); Mean Corpuscular Hemoglobin 30 pg (26-34); Mean Corpuscular Volume 92 fL (80-100); Monocytes Percent Auto 10.7 % (0.0-11.0); Platelet Count* 504 K/uL (140-440); Red Blood Count 3.73 m/uL (4.00-5.20)
[2022-04-30 07:55] LABS: Chloride* 105 mmol/L (96-114); Potassium* 3.3 mmol/L (3.6-5.1); Sodium* 138 mmol/L (135-149)
[2022-04-30 07:58] LABS: Blood Urea Nitrogen* 18 mg/dL (7-30); Carbon Dioxide* 28 mmol/L (20-32); Creatinine* 0.7 mg/dL (0.5-1.5); Est. Creatinine Clearance* 44.34; Estimated Glomerular Filt Rate 94 ml/min; Glucose* 106 mg/dL (60-115)
[2022-04-30 07:59] LABS: Calcium* 8.5 mg/dL (8.4-10.6)
[2022-04-30 08:51] LABS: Slide Review Reflex Yes; White Blood Count* 8.07 K/uL (4.50-11.00)
[2022-04-30 08:53] LABS: Slide Review Acceptable Review (Acceptable)
[2022-04-30] MEDS: ALBUTEROL INHALER 2 PUFF IH (09:25)
[2022-04-30] MEDS: IPRAT-ALBUT 0.5-2.5 MG/3 ML NEB 1 NEB IH ×4 (09:25→20:54)
[2022-04-30] MEDS: FLUTICASONE PROPION SALMETEROL 1 EACH IH ×2 (09:29→20:55)
--- NOTE | 2022-04-30 09:55 | P.IMPN_ITS ---
Progress Note: A&P Assessment and plan (1) Small bowel obstruction: Status: Acute Assessment and Plan: Conservative management remains the plan in discussion with surgery. TPN and NG tube. (2) S/P right hemicolectomy: Problem details: 04/13/22 Status: Acute Assessment and Plan: No immediate surgical complications apparent (3) Electrolyte and fluid disorder: Status: Acute Assessment and Plan: Ongoing adjustment of IV fluids and electrolytes with TPN. She appears mildly dry today. Will continue maintenance fluids along with TPN for now. (4) Anxiety: Status: Acute Assessment and Plan: Will hold oral anxiety medications. Continue IV lorazepam. Time Spent With Patient Total time spent: Total time spent today is 45 minutes, 30 minutes in coordination of care and discussing with patient and family and other providers ongoing management of small bowel obstruction Subjective Date Seen: 04/30/22 Interval history: 66-year-old female seen in followup of small bowel obstruction status post right hemicolectomy on April 13. At that time she was found to have extensive lysis of adhesions. She had a relatively uncomplicated recovery from surgery but then developed a small-bowel obstruction. Conservative management this week his been unsuccessful. She continued to have distended abdomen. Small bowel follow- through x-ray shows delayed emptying of distended loops of small bowel. NG tube was placed last night. PICC line was placed for TPN as well. Today she reports her abdomen feels better. Her hiccups have resolved. Her reflux has resolved. She is not passing gas. She has no concerns about her breathing. Exam Narrative: Exam Narrative: She is alert and appears in no distress. Respirations with diminished breath sounds. No wheezing rales or rhonchi. Cardiovascular: S1, S2, regular rate and rhythm. Abdomen: Bowel sounds diminished. Abdomen is soft. Still mildly distended but improved from yesterday. Incision is well healed. Const: Vital Signs, click to edit/add: Vital Signs - 24 hr 04/29/22 11:00 04/29/22 15:00 04/29/22 15:00 Temperature 98.2 F 97.5 F L Pulse Rate [Right Pulse Oximeter] 92 108 H 108 H Respiratory Rate 20 20 18 Blood Pressure [Ri ght Arm] 121/81 104/62 Pulse Oximetry 88 92 Oxygen Delivery Me thod Nasal Cannula Nasal Cannula Oxygen Flow Rate 1 1 04/29/22 19:00 04/29/22 23:00 04/29/22 23:00 Temperature 97.8 F 97.8 F Pulse Rate [Right Pulse Oximeter] 115 H 105 H 105 H Respiratory Rate 20 20 20 Blood Pressure [Ri ght Arm] 122/84 111/63 Pulse Oximetry 94 93 Oxygen Delivery Me thod Nasal Cannula Nasal Cannula Oxygen Flow Rate 1 1 04/30/22 04:45 04/30/22 07:00 04/30/22 07:00 Temperature 98.9 F Pulse Rate [Right Pulse Oximeter] 104 H 106 H 106 H Respiratory Rate 18 18 18 Blood Pressure [Ri ght Arm] 126/68 Pulse Oximetry 94 94 Oxygen Delivery Me thod Nasal Cannula Nasal Cannula Oxygen Flow Rate 1 1 Documenting provider has reviewed patient's vital signs: yes Labs Labs: Laboratory Results - last 24 hr 04/28/22 04/29/22 04/30/22 06:31 06:34 06:28 WBC 8.07 RBC 3.73 L Hgb 11.1 L Hct 34.3 MCV 92 MCH 30 MCHC 32 RDW Coeff of Riri 14.0 Plt Count 504 H Neut % (Auto) 45.0 Lymph % (Auto) 43.7 [place] % (Auto) 10.7 Eos % (Auto) 0.4 Baso % (Auto) 0.0 Neut # (Auto) 3.60 Lymph # (Auto) 3.50 H [place] # (Auto) 0.90 Eos # (Auto) 0.00 Baso # (Auto) 0.00 Abs Immat Gran (auto) 0.02 Diff Slide Review Acceptable Review Sodium Potassium Chloride Carbon Dioxide BUN Creatinine Estimated Creat Clear Estimated GFR Glucose Calcium Phosphorus 3.4 Magnesium Cancelled 1.8 04/30/22 06:28 WBC RBC Hgb Hct MCV MCH MCHC RDW Coeff of Riri Plt Count Neut % (Auto) Lymph % (Auto) [place] % (Auto) Eos % (Auto) Baso % (Auto) Neut # (Auto) Lymph # (Auto) [place] # (Auto) Eos # (Auto) Baso # (Auto) Abs Immat Gran (auto) Diff Slide Review Sodium 138 Potassium 3.3 L Chloride 105 Carbon Dioxide 28 BUN 18 Creatinine 0.7 Estimated Creat Clear 44.34 Estimated GFR 94 Glucose 106 Calcium 8.5 Phosphorus Magnesium
--- NOTE | 2022-04-30 10:25 | PM.GSPN ---
Subjective Subjective Date Seen: 04/30/22 Interval history: Patient is doing ok this morning, denies any abdominal pain. Is feeling hungry but continues to have large NGT output. Not yet passing gas. Has been ambulating the halls. Exam Narrative: Exam Narrative: Gen: alert and oriented, non toxic HEENT: NGT in place, large amount of liquid stool output in canister. Resp: NC in place, equal breath rise b/l CV: RRR Abdomen: soft, non distended, incisions well healed. Non tender to palpation. No bowel sounds. Const: Vital Signs, click to edit/add: Vital Signs - 24 hr 04/29/22 11:00 04/29/22 15:00 04/29/22 15:00 Temperature 98.2 F 97.5 F L Pulse Rate [Right Pulse Oximeter] 92 108 H 108 H Respiratory Rate 20 20 18 Blood Pressure [Ri ght Arm] 121/81 104/62 Pulse Oximetry 88 92 Oxygen Delivery Me thod Nasal Cannula Nasal Cannula Oxygen Flow Rate 1 1 04/29/22 19:00 04/29/22 23:00 04/29/22 23:00 Temperature 97.8 F 97.8 F Pulse Rate [Right Pulse Oximeter] 115 H 105 H 105 H Respiratory Rate 20 20 20 Blood Pressure [Ri ght Arm] 122/84 111/63 Pulse Oximetry 94 93 Oxygen Delivery Me thod Nasal Cannula Nasal Cannula Oxygen Flow Rate 1 1 04/30/22 04:45 04/30/22 07:00 04/30/22 07:00 Temperature 98.9 F Pulse Rate [Right Pulse Oximeter] 104 H 106 H 106 H Respiratory Rate 18 18 18 Blood Pressure [Ri ght Arm] 126/68 Pulse Oximetry 94 94 Oxygen Delivery Me thod Nasal Cannula Nasal Cannula Oxygen Flow Rate 1 1 Progress Note: A&P Assessment and plan (1) Small bowel obstruction: Status: Acute Assessment and Plan: Patient HD #5 early SBO. A small bowel follow through was performed (04/29/22), with no evidence of contrast progressing into colon. An NGT was placed with clinical improvement in abdominal pain and distension. Output continues to be high with stool like output. Not yet passing gas and no bowel sounds on exam. A PICC line was placed with plans to start TPN this morning. -TPN, continue NPO. Ok for 1 cup ice chips q6h with instructions to subtract from NGT output total -NGT LIS -encourage ambulation All other cares per hospitalist.
[2022-04-30 11:22] LABS: INR 1.06 (0.91-1.10); Prothrombin Time 14.2 Seconds
[2022-04-30] MEDS: LACTATED RINGERS 1000 ML 1,000 ML 50 ML IV (12:05)
[2022-04-30] MEDS: AA 5 %/CALCIUM/LYTES/DEXT 20 % 2,000 ML 25 ML IVPB (12:07)
[2022-04-30 12:23] LABS: Albumin* 3.1 g/dL (3.3-5.0)
[2022-04-30 12:24] LABS: Chloride* 105 mmol/L (96-114); Potassium* 3.4 mmol/L (3.6-5.1); Sodium* 138 mmol/L (135-149)
[2022-04-30 12:26] LABS: Alanine Aminotransferase* 17 U/L (4-35); Alkaline Phosphatase* 73 U/L (40-150); Aspartate Amino Transferase* 29 U/L (12-35); Bilirubin Total* 0.3 mg/dL (0.1-1.5); Blood Urea Nitrogen* 19 mg/dL (7-30); Carbon Dioxide* 28 mmol/L (20-32); Creatinine* 0.7 mg/dL (0.5-1.5); Est. Creatinine Clearance* 44.34; Estimated Glomerular Filt Rate 94 ml/min; Glucose* 104 mg/dL (60-115); Total Protein* 5.6 g/dL (6.0-8.3)
[2022-04-30 12:27] LABS: Calcium* 8.6 mg/dL (8.4-10.6); Magnesium* 1.9 mg/dL (1.5-2.6); Phosphorus* 3.1 mg/dL (2.5-4.5); Triglycerides* 109 mg/dL (40-149)
[2022-04-30 12:34] VITALS: BP 101/59; PULSE 96; RESP 18; TEMP 36.5; O2SAT 94
--- NOTE | 2022-04-30 14:16 | PC.NURSE ---
End of Shift: pt has been pleasant. she was very anxious this am and requested ativan and got ativan IV. IS is patent. checked and picc line was ok to use and tpn was started @ 25 mls for 6 hours then it will be turned up to 50 mls/ Pt is up with SBA 3L o2 and a IV pole. abd pain 2-3/10 and she did not want anything for pain so far. NG is to LIS 500 out from 7am to 3pm. she has been sleeping. scds are jason nd off. she can have 1 glass of ice every 6 hours and no free water. she is using call light. picc line dressing is C/D/I SL is patent.
[2022-04-30 15:30] VITALS: BP 117/66; PULSE 95; RESP 16; TEMP 37; O2SAT 95
[2022-04-30] MEDS: LORazepam 2 MG/ML inj 0.5 MG IVP (15:54)
[2022-04-30] MEDS: ENOXAPARIN 40 MG/0.4 ML INJ SUBCUT (17:55)
[2022-04-30] MEDS: NICOTINE 21 MG PATCH 1 PATCH TRANSDERMA (17:56)
--- NOTE | 2022-04-30 18:47 | PC.NURSE ---
end of shift. TPN LR and Lipids are infusing with no problems. she has walked 6 x today. no gas, abd is soft. BS are hypo. NG was @ 42 and was advanced back to 50. NG output has slowed down. ice chips 1 cup Q 6 hours
[2022-04-30 19:00] VITALS: BP 121/61; PULSE 92; RESP 20; TEMP 36.7; O2SAT 95
[2022-04-30 23:00] VITALS: BP 129/74; PULSE 95; RESP 20; TEMP 36.6; O2SAT 95
[2022-05-01] MEDS: LORazepam 2 MG/ML inj 0.5 MG IVP ×4 (00:35→21:13)
[2022-05-01] MEDS: SODIUM CHLORIDE 0.9 % (FLUSH) 10 ML SYRINGE 5 ML IVF ×4 (00:36→21:13)
[2022-05-01 03:00] VITALS: BP 120/62; PULSE 94; RESP 20; TEMP 36.8; O2SAT 94
[2022-05-01] MEDS: LACTATED RINGERS 1000 ML 1,000 ML 50 ML IV ×2 (06:01→12:38)
[2022-05-01] MEDS: PANTOPRAZOLE SODIUM 40 MG INJ IVP ×2 (06:03→18:04)
--- NOTE | 2022-05-01 06:23 | PC.NURSE ---
[id number]: Patient cooperative with cares. Mildly anxious at times. Scheduled Ativan administered for relief. PICC patent with TPN, LR, and lipids running. NG @ 50 set to LIS with 650mL of yellow/brown drainage out during shift. Denies passing gas. Reports feeling better than yesterday. Tolerating ice chips but limited to 1 cup q6h.
[2022-05-01 07:16] LABS: Basophils Absolute Auto 0.01 K/uL (0.00-0.30); Basophils Percent Auto 0.1 % (0.0-3.0); Eosinophils Absolute Auto 0.08 K/uL (0.00-0.50); Hematocrit 33.4 % (33.0-51.0); Hemoglobin* 10.9 gm/dL (12.0-16.0); Immature Granulocytes Abs Auto 0.03 K/uL (0.00-0.30); Lymphocytes Absolute Auto 3.12 K/uL (0.90-2.90); Lymphocytes Percent Auto 38.5 % (20-44); Mean Corpuscular HGB Conc 33 gm/dL (32-36); Mean Corpuscular Hemoglobin 30 pg (26-34); Mean Corpuscular Volume 92 fL (80-100); Monocytes Percent Auto 10.2 % (0.0-11.0); Neutrophils Absolute Auto 4.03 K/uL (1.7-7.0); Neutrophils Percent Auto 49.8 % (42.0-72.0); Platelet Count* 448 K/uL (140-440); RDW Coefficient of Variation % 13.8 % (11.5-15.5); Red Blood Count 3.64 m/uL (4.00-5.20)
[2022-05-01 07:24] LABS: Chloride* 102 mmol/L (96-114); Sodium* 137 mmol/L (135-149)
[2022-05-01 07:27] LABS: Carbon Dioxide* 30 mmol/L (20-32); Creatinine* 0.6 mg/dL (0.5-1.5); Est. Creatinine Clearance* 44.34; Estimated Glomerular Filt Rate 98 ml/min
[2022-05-01 07:28] LABS: Blood Urea Nitrogen* 14 mg/dL (7-30); Calcium* 8.4 mg/dL (8.4-10.6); Glucose* 156 mg/dL (60-115); Magnesium* 1.8 mg/dL (1.5-2.6); Phosphorus* 1.6 mg/dL (2.5-4.5); Triglycerides* 106 mg/dL (40-149)
[2022-05-01 07:36] LABS: Potassium* 2.6 mmol/L (3.6-5.1)
[2022-05-01 07:50] LABS: INR 0.99 (0.91-1.10); Prothrombin Time 13.5 Seconds
[2022-05-01 07:55] LABS: Slide Review Reflex No
[2022-05-01 08:00] VITALS: BP 112/67; PULSE 100; RESP 20; TEMP 36.5; O2SAT 92
--- NOTE | 2022-05-01 09:21 | PM.GSPN ---
Subjective Subjective Date Seen: 05/01/22 Interval history: Patient is doing okay this morning. She is feeling hungry and reports passing gas x1. She has been ambulating the hallway and walked 6 times yesterday with nursing staff. No fevers or chills. Denies any nausea. NG tube remains in place. Exam Narrative: Exam Narrative: General: Alert and oriented, no acute distress. Lying comfortably in bed. Respiratory: Nasal cannula in place on 1 L, equal breath rise bilaterally HEENT: NG tube in place with clear bile tinged fluid CV: Well perfused Abdomen: Soft, tender over incision and right lower quadrant with no guarding or rebound. Nondistended. Const: Vital Signs, click to edit/add: Vital Signs - 24 hr 04/30/22 12:34 04/30/22 15:30 04/30/22 15:30 Temperature 97.7 F 98.6 F Pulse Rate [Right Pulse Oximeter] 96 95 95 Respiratory Rate 18 16 16 Blood Pressure [Ri ght Arm] 101/59 L 117/66 Pulse Oximetry 94 95 Oxygen Delivery Me thod Nasal Cannula Nasal Cannula Oxygen Flow Rate 1 1 04/30/22 19:00 04/30/22 23:00 05/01/22 03:00 Temperature 98.1 F 97.8 F 98.2 F Pulse Rate [Right Pulse Oximeter] 92 95 94 Respiratory Rate 20 20 20 Blood Pressure [Ri ght Arm] 121/61 129/74 120/62 Pulse Oximetry 95 95 94 Oxygen Delivery Me thod Nasal Cannula Nasal Cannula Nasal Cannula Oxygen Flow Rate 1 1 1 05/01/22 08:00 05/01/22 08:00 Temperature 97.7 F Pulse Rate [Right Pulse Oximeter] 100 100 Respiratory Rate 20 20 Blood Pressure [Ri ght Arm] 112/67 Pulse Oximetry 92 Oxygen Delivery Me thod Nasal Cannula Oxygen Flow Rate 1 Labs/Imaging Labs Labs: Morning labs reviewed. Significant for low potassium (2.6) and hypophosphatemia (1.6). CBC with no evidence of leukocytosis, hemoglobin stable at 10.9. Imaging Imaging: No new imaging today. Progress Note: A&P Assessment and plan (1) Small bowel obstruction: Status: Acute Assessment and Plan: Patient HD #6 early SBO. A small bowel follow through was performed (04/29/22), with no evidence of contrast progressing into colon. An NGT remains in place. Output has started to decrease and become more clear. She does report passing gas x1 and an appetite this morning. Things are progressing in the right direction, however will continue with the NG tube in place and await advancement of diet. She does have some electrolyte abnormalities noted on labs this morning. Appreciate Dr. Hill assistance in adjusting the TPN medication to correct these. -TPN, continue NPO. Ok for 1 cup ice chips q6h with instructions to subtract from NGT output total -NGT LIS -encourage ambulation All other cares per hospitalist.
[2022-05-01] MEDS: BENZOCAINE/MENTHOL 1 EACH LOZENGE MUCOUS MEM (09:27)
[2022-05-01] MEDS: FLUTICASONE PROPION SALMETEROL 1 EACH IH ×2 (09:28→21:13)
[2022-05-01] MEDS: IPRAT-ALBUT 0.5-2.5 MG/3 ML NEB 1 NEB IH ×4 (09:28→21:12)
[2022-05-01 11:35] VITALS: BP 126/75; PULSE 105; RESP 20; TEMP 36.8; O2SAT 96
[2022-05-01] MEDS: AA 5 %/CALCIUM/LYTES/DEXT 20 % 2,000 ML 50 ML IVPB (12:39)
[2022-05-01 16:00] VITALS: BP 120/70; PULSE 100; RESP 20; TEMP 36.9; O2SAT 91
[2022-05-01 16:28] VITALS: PULSE 100; RESP 20
[2022-05-01] MEDS: ENOXAPARIN 40 MG/0.4 ML INJ SUBCUT (18:04)
[2022-05-01] MEDS: NICOTINE 21 MG PATCH 1 PATCH TRANSDERMA (18:04)
--- NOTE | 2022-05-01 18:41 | PC.NURSE ---
End of Shift: pt has been very pleasant. alert x3 ? minimal abd pain 1-2. no pain meds. ? IS q 2 hr. . ?tpn 50 mls and LR at 25 ? Pt is up with? SBA 1L at rest and 3L with walking with o2 and a IV pole. NG is to LIS? 300 out from 7am to 3pm.? ? she has been sleeping on and off..? scds are on and off. ? she can have 1 glass of ice every 6 hours and no free water.? she is using call light.? picc line dressing is C/D/I ? SL is patent..? TPN LR and are infusing with no problems. ? she has walked 6 x today. ? she is passing gas, and she had a small hard BM. ? abd is soft. ? BS are hypo. ? NG was @ 50. ?BS and insulin done 154 and 164. she is SOB with walking. lap site with steri strips.
[2022-05-01 20:00] VITALS: BP 122/56; PULSE 98; RESP 20; TEMP 36.6; O2SAT 98
[2022-05-01 23:07] LABS: Prealbumin 11.3 mg/dL (20.0-40.0)
[2022-05-02] VITALS (10 sets, daily range): BP systolic 112–145; BP diastolic 71–81; PULSE 85–101; RESP 18–20; TEMP 36.5–36.9; O2SAT 94–909
[2022-05-02] MEDS: LORazepam 2 MG/ML inj 0.5 MG IVP ×3 (03:56→18:02)
[2022-05-02] MEDS: SODIUM CHLORIDE 0.9 % (FLUSH) 10 ML SYRINGE 5 ML IVF ×3 (03:57→09:26)
--- NOTE | 2022-05-02 06:13 | PC.NURSE ---
[id number]: Patient friendly and cooperative. Denies pain. BS hypoactive. 3 loose BM's during shift. Passing gas. SBA. Chronic 1Lt O2 at rest increased to 3Lt w/activity. PICC patent with LR and TPN running. NG patent and draining green fluid. Tolerating ice chips, but limiting to 1 cup q6h.
[2022-05-02] MEDS: PANTOPRAZOLE SODIUM 40 MG INJ IVP ×2 (06:21→17:42)
[2022-05-02 07:09] LABS: Basophils Absolute Auto 0.01 K/uL (0.00-0.30); Basophils Percent Auto 0.1 % (0.0-3.0); Eosinophils Percent Auto 1.1 % (0.0-7.0); Hematocrit 35.3 % (33.0-51.0); Hemoglobin* 11.4 gm/dL (12.0-16.0); Immature Granulocytes Abs Auto 0.05 K/uL (0.00-0.30); Lymphocytes Absolute Auto 3.61 K/uL (0.90-2.90); Lymphocytes Percent Auto 41.1 % (20-44); Mean Corpuscular HGB Conc 32 gm/dL (32-36); Mean Corpuscular Hemoglobin 30 pg (26-34); Mean Corpuscular Volume 91 fL (80-100); Monocytes Percent Auto 8.7 % (0.0-11.0); Neutrophils Absolute Auto 4.25 K/uL (1.7-7.0); Neutrophils Percent Auto 48.4 % (42.0-72.0); Platelet Count* 467 K/uL (140-440); RDW Coefficient of Variation % 13.9 % (11.5-15.5); Red Blood Count 3.87 m/uL (4.00-5.20); Slide Review Reflex No; White Blood Count* 8.78 K/uL (4.50-11.00)
--- NOTE | 2022-05-02 07:20 | PM.IMPN1 ---
Progress Note: A&P Assessment and plan (1) Small bowel obstruction: Status: Acute Assessment and Plan: Stable. Continuing conservative management (2) Electrolyte and fluid disorder: Status: Acute Assessment and Plan: Address hypokalemia and hypophosphatemia (3) Chronic obstructive pulmonary disease: Problem details: Home O2 1L at rest, 3L with activity Status: Acute Assessment and Plan: Stable (4) Nutrition disorder: Status: Acute Assessment and Plan: TPN Plan Continue NG suctioning and TPN. Continue to adjust fluid and electrolytes. Await evidence for return of bowel function. Time Spent With Patient Total time spent: Total time spent today is 35 minutes, 30 minutes in coordination of care and discussing nutrition, small-bowel obstruction and managing fluid and electrolytes with other providers Subjective Date Seen: 05/01/22 Interval history: 66-year-old female seen in followup of small bowel obstruction. She reports no significant abdominal pain. She did pass some gas. She is being fed with TPN. She is not thirsty. Breathing is at baseline. Exam Narrative: Exam Narrative: She is alert and appears in no distress. NG tube is removing a nonbloody fairly clear green gastric fluid. Respirations with decreased breath sounds. No wheezing rales or rhonchi. Cardiovascular: S1, S2, regular rate and rhythm. Abdomen: Bowel sounds are minimal. Abdomen is soft she has mild diffuse tenderness. Nondistended. Extremities without significant edema. Const: Vital Signs, click to edit/add: Vital Signs - 24 hr 05/01/22 08:00 05/01/22 08:00 05/01/22 11:35 Temperature 97.7 F 98.3 F Pulse Rate [Right Pulse Oximeter] 100 100 105 H Respiratory Rate 20 20 20 Blood Pressure [Ri ght Arm] 112/67 126/75 Pulse Oximetry 92 96 Oxygen Delivery Me thod Nasal Cannula Nasal Cannula Oxygen Flow Rate 1 1 05/01/22 16:28 05/01/22 16:00 05/01/22 20:00 Temperature 98.5 F 97.8 F Pulse Rate [Right Pulse Oximeter] 100 100 98 Respiratory Rate 20 20 20 Blood Pressure [Ri ght Arm] 120/70 122/56 L Pulse Oximetry 91 98 Oxygen Delivery Me thod Nasal Cannula Nasal Cannula Oxygen Flow Rate 1 1 05/02/22 00:04 05/02/22 00:00 05/02/22 04:00 Temperature 98.0 F 97.7 F Pulse Rate [Right Pulse Oximeter] 101 H 99 Respiratory Rate 20 20 20 Blood Pressure [Ri ght Arm] 129/79 119/72 Pulse Oximetry 96 96 96 Oxygen Delivery Me thod Nasal Cannula Nasal Cannula Nasal Cannula Oxygen Flow Rate 1.0 1.0 1.0 Documenting provider has reviewed patient's vital signs: yes Labs Labs: Laboratory Results - last 24 hr 04/30/22 05/01/22 05/01/22 06:28 06:16 06:16 WBC 8.10 RBC 3.64 L Hgb 10.9 L Hct 33.4 MCV 92 MCH 30 MCHC 33 RDW Coeff of Riri 13.8 Plt Count 448 H Neut % (Auto) 49.8 Lymph % (Auto) 38.5 Sherman % (Auto) 10.2 Eos % (Auto) 1.0 Baso % (Auto) 0.1 Neut # (Auto) 4.03 Lymph # (Auto) 3.12 H Sherman # (Auto) 0.80 Eos # (Auto) 0.08 Baso # (Auto) 0.01 Abs Immat Gran (auto) 0.03 INR 0.99 Sodium Potassium Chloride Carbon Dioxide BUN Creatinine Estimated Creat Clear Estimated GFR Glucose Calcium Phosphorus Magnesium Prealbumin 11.3 L Triglycerides 05/01/22 05/02/22 06:16 06:30 WBC 8.78 RBC 3.87 L Hgb 11.4 L Hct 35.3 MCV 91 MCH 30 MCHC 32 RDW Coeff of Riri 13.9 Plt Count 467 H Neut % (Auto) 48.4 Lymph % (Auto) 41.1 Sherman % (Auto) 8.7 Eos % (Auto) 1.1 Baso % (Auto) 0.1 Neut # (Auto) 4.25 Lymph # (Auto) 3.61 H Sherman # (Auto) 0.80 Eos # (Auto) 0.10 Baso # (Auto) 0.01 Abs Immat Gran (auto) 0.05 INR Sodium 137 Potassium 2.6 L* Chloride 102 Carbon Dioxide 30 BUN 14 Creatinine 0.6 Estimated Creat Clear 44.34 Estimated GFR 98 Glucose 156 H Calcium 8.4 Phosphorus 1.6 L Magnesium 1.8 Prealbumin Triglycerides 106
[2022-05-02 09:12] LABS: Chloride* 103 mmol/L (96-114); Sodium* 138 mmol/L (135-149)
[2022-05-02 09:15] LABS: Blood Urea Nitrogen* 13 mg/dL (7-30); Calcium* 8.6 mg/dL (8.4-10.6); Carbon Dioxide* 31 mmol/L (20-32); Creatinine* 0.5 mg/dL (0.5-1.5); Est. Creatinine Clearance* 44.34; Estimated Glomerular Filt Rate 102 ml/min; Glucose* 127 mg/dL (60-115); Phosphorus* 3.3 mg/dL (2.5-4.5)
[2022-05-02] MEDS: IPRAT-ALBUT 0.5-2.5 MG/3 ML NEB 1 NEB IH ×4 (09:27→21:08)
[2022-05-02] MEDS: FLUTICASONE PROPION SALMETEROL 1 EACH IH ×2 (09:27→21:08)
--- NOTE | 2022-05-02 10:27 | PM.IMPN1 ---
Progress Note: A&P Assessment and plan (1) Small bowel obstruction: Status: Acute Assessment and Plan: Improving. Coordinate with General surgery regarding removing NG tube and advancing diet (2) Electrolyte and fluid disorder: Status: Acute Assessment and Plan: Electrolyte abnormalities are improving. Adjust TPN. Patient is somewhat dry today. Possibly add in IV or oral fluids per surgery (3) Chronic obstructive pulmonary disease: Problem details: Home O2 1L at rest, 3L with activity Status: Acute Assessment and Plan: Stable (4) Nutrition disorder: Status: Acute Assessment and Plan: On TPN. Advance diet per surgery. Time Spent With Patient Total time spent: 30 minutes, 20 minutes in coordination of care and discussing with other providers management of fluid and electrolytes, small-bowel obstruction and advancing diet Subjective Date Seen: 05/02/22 Interval history: 66-year-old female seen in followup of small bowel obstruction. Overnight patient had several liquid stools. She reports being thirsty this morning. Breathing is okay. Her abdominal pain is minimal. Exam Narrative: Exam Narrative: She is alert and appears in no distress. Sitting up in the chair. Tube is currently clamped. She is oriented to her circumstances. Respirations are clear to auscultation. Diminished breath sounds without wheezing rales or rhonchi. Cardiovascular: S1, S2, regular rate and rhythm. Abdomen is soft with minimal bowel sounds. Mild diffuse tenderness. No significant edema. Const: Vital Signs, click to edit/add: Vital Signs - 24 hr 05/01/22 11:35 05/01/22 16:28 05/01/22 16:00 Temperature 98.3 F 98.5 F Pulse Rate [Right Pulse Oximeter] 105 H 100 100 Respiratory Rate 20 20 20 Blood Pressure [Ri ght Arm] 126/75 120/70 Pulse Oximetry 96 91 Oxygen Delivery Me thod Nasal Cannula Nasal Cannula Oxygen Flow Rate 1 1 05/01/22 20:00 05/02/22 00:04 05/02/22 00:00 Temperature 97.8 F 98.0 F Pulse Rate [Right Pulse Oximeter] 98 101 H Respiratory Rate 20 20 20 Blood Pressure [Ri ght Arm] 122/56 L 129/79 Pulse Oximetry 98 96 96 Oxygen Delivery Me thod Nasal Cannula Nasal Cannula Nasal Cannula Oxygen Flow Rate 1 1.0 1.0 05/02/22 04:00 05/02/22 08:00 05/02/22 08:00 Temperature 97.7 F 98.2 F Pulse Rate [Right Pulse Oximeter] 99 90 Respiratory Rate 20 18 20 Blood Pressure [Ri ght Arm] 119/72 130/79 Pulse Oximetry 96 909 H 96 Oxygen Delivery Me thod Nasal Cannula Nasal Cannula Nasal Cannula Oxygen Flow Rate 1.0 1.0 1.0 05/02/22 08:00 Temperature Pulse Rate [Right Pulse Oximeter] 90 Respiratory Rate 20 Blood Pressure [Ri ght Arm] Pulse Oximetry Oxygen Delivery Me thod Oxygen Flow Rate Documenting provider has reviewed patient's vital signs: yes Labs Labs: Laboratory Results - last 24 hr 04/30/22 05/02/22 05/02/22 06:28 06:30 06:30 WBC 8.78 RBC 3.87 L Hgb 11.4 L Hct 35.3 MCV 91 MCH 30 MCHC 32 RDW Coeff of Riri 13.9 Plt Count 467 H Neut % (Auto) 48.4 Lymph % (Auto) 41.1 [place] % (Auto) 8.7 Eos % (Auto) 1.1 Baso % (Auto) 0.1 Neut # (Auto) 4.25 Lymph # (Auto) 3.61 H [place] # (Auto) 0.80 Eos # (Auto) 0.10 Baso # (Auto) 0.01 Abs Immat Gran (auto) 0.05 Sodium 138 Potassium 3.0 L Chloride 103 Carbon Dioxide 31 BUN 13 Creatinine 0.5 Estimated Creat Clear 44.34 Estimated GFR 102 Glucose 127 H Calcium 8.6 Phosphorus 3.3 Prealbumin 11.3 L
--- NOTE | 2022-05-02 10:52 | PM.GSPN ---
Subjective Subjective Date Seen: 05/02/22 Interval history: Patient is doing well this morning. Denies any abdominal pain and feels ?almost back to normal?. Denies feeling any bloating or distention. Has been passing gas and having incontinence of liquid stool since yesterday. Feeling very thirsty this morning. Her NG tube has been clamped for 2 hours with patient denying any nausea or vomiting. She continues to ambulate the hallway with assistance. Exam Narrative: Exam Narrative: General: Alert and oriented, no acute distress. Sitting in a chair. Nontoxic in appearance. Respiratory: Nasal cannula in place, 1 L with equal breath rise bilaterally CV: Regular rhythm rate Abdomen: Soft, nontender, nondistended. Positive bowel sounds. HEENT: NG tube in place and clamped. Const: Vital Signs, click to edit/add: Vital Signs - 24 hr 05/01/22 11:35 05/01/22 16:28 05/01/22 16:00 Temperature 98.3 F 98.5 F Pulse Rate [Right Pulse Oximeter] 105 H 100 100 Respiratory Rate 20 20 20 Blood Pressure [Ri ght Arm] 126/75 120/70 Pulse Oximetry 96 91 Oxygen Delivery Me thod Nasal Cannula Nasal Cannula Oxygen Flow Rate 1 1 05/01/22 20:00 05/02/22 00:04 05/02/22 00:00 Temperature 97.8 F 98.0 F Pulse Rate [Right Pulse Oximeter] 98 101 H Respiratory Rate 20 20 20 Blood Pressure [Ri ght Arm] 122/56 L 129/79 Pulse Oximetry 98 96 96 Oxygen Delivery Me thod Nasal Cannula Nasal Cannula Nasal Cannula Oxygen Flow Rate 1 1.0 1.0 05/02/22 04:00 05/02/22 08:00 05/02/22 08:00 Temperature 97.7 F 98.2 F Pulse Rate [Right Pulse Oximeter] 99 90 Respiratory Rate 20 18 20 Blood Pressure [Ri ght Arm] 119/72 130/79 Pulse Oximetry 96 909 H 96 Oxygen Delivery Me thod Nasal Cannula Nasal Cannula Nasal Cannula Oxygen Flow Rate 1.0 1.0 1.0 05/02/22 08:00 Temperature Pulse Rate [Right Pulse Oximeter] 90 Respiratory Rate 20 Blood Pressure [Ri ght Arm] Pulse Oximetry Oxygen Delivery Me thod Oxygen Flow Rate Labs/Imaging Labs Labs: CBC stable. BMP with hypokalemia, is improved compared to yesterday. Normal phosphate. Imaging Imaging: No new imaging. Progress Note: A&P Assessment and plan (1) Small bowel obstruction: Status: Acute Assessment and Plan: Patient HD #7 early SBO. NG tube output has significantly decreased with patient now passing gas and having liquidy stools. She has been clamped for 2 hours this morning with no increase in abdominal distension, nausea or vomiting. Will continue with a 4 hour clamping trial and evaluate for residuals. If output after clamping trial remains low, will plan to DC NG tube and start clear liquids. Agree with continuing TPN until patient is consistently taking adequate p.o. intake, which will likely take an additional 2-[address] Esposito to continue to manage electrolytes and TPN. Appreciate his assistance. -for our clamping trial this morning, please call with residuals once NG tube is placed back on to suction. -encourage ambulation All other cares per hospitalist.
[2022-05-02] MEDS: AA 5 %/CALCIUM/LYTES/DEXT 20 % 2,000 ML 50 ML IVPB (12:44)
[2022-05-02] MEDS: LACTATED RINGERS 1000 ML 1,000 ML 25 ML IV (12:45)
[2022-05-02] MEDS: ENOXAPARIN 40 MG/0.4 ML INJ SUBCUT (17:43)
[2022-05-02] MEDS: NICOTINE 21 MG PATCH 1 PATCH TRANSDERMA (17:43)
--- NOTE | 2022-05-02 19:15 | PC.NURSE ---
End of Shift: pt is still very pleasant. she is more awake and alert. alert x3 ? minimal abd pain 1-2.? ? no pain meds. ? ? IS q 2 hr. ?tpn 50 mls and LR at 25? ?both where changed @ 1200. Pt is up with? SBA? 1L at rest and 3L with walking with o2 and a IV pole.? SL was d/c intact. NG was d/c.? o2 tubbing was changed ? she slept less today.? scds are off. ? she has ice cheip was water @ 1300 and 30% of clears @ 1500. ? she is using call light.? picc line dressing is C/D/I. ? she has walked 5 x today. ? she is passing gas, and she is having losses bm's . ? ? abd is soft. ? BS are better today/ ?BS and insulin done 145, 137.? she is less SOB with NG out .? lap site with steri strips.?
[2022-05-02] MEDS: LORazepam 0.5 MG TABLET 1 MG PO (21:08)
[2022-05-03] VITALS (9 sets, daily range): BP systolic 98–124; BP diastolic 61–76; PULSE 94–102; RESP 12–26; TEMP 36.5–37.3; O2SAT 90–98
--- NOTE | 2022-05-03 05:57 | PC.NURSE ---
[id number]: Patient pleasant and cooperative. More upbeat and talkative than previous 2 days. Denies pain. Denies N/V. PICC patent with LR and TPN running. SBA. Ambulated halls x1 with display card writer. Patient passing gas and had several small continent BM's during shift. Tolerating clears.
[2022-05-03] MEDS: PANTOPRAZOLE SODIUM 40 MG INJ IVP ×2 (06:23→18:13)
[2022-05-03] MEDS: SODIUM CHLORIDE 0.9 % (FLUSH) 10 ML SYRINGE 5 ML IVF ×2 (06:24→20:48)
[2022-05-03 07:08] LABS: Albumin* 2.9 g/dL (3.3-5.0); Chloride* 103 mmol/L (96-114); Potassium* 3.1 mmol/L (3.6-5.1); Sodium* 136 mmol/L (135-149)
[2022-05-03 07:10] LABS: Carbon Dioxide* 29 mmol/L (20-32); Creatinine* 0.5 mg/dL (0.5-1.5); Est. Creatinine Clearance* 44.34; Estimated Glomerular Filt Rate 102 ml/min
[2022-05-03 07:11] LABS: Alanine Aminotransferase* 21 U/L (4-35); Alkaline Phosphatase* 78 U/L (40-150); Aspartate Amino Transferase* 25 U/L (12-35); Bilirubin Total* < 0.1 mg/dL (0.1-1.5); Blood Urea Nitrogen* 12 mg/dL (7-30); Calcium* 8.2 mg/dL (8.4-10.6); Glucose* 123 mg/dL (60-115); Total Protein* 5.6 g/dL (6.0-8.3)
[2022-05-03 08:03] LABS: Magnesium* 1.7 mg/dL (1.5-2.6)
[2022-05-03] MEDS: POTASSIUM BICARB 25 MEQ EFFERVESCENT TAB PO ×3 (08:34→14:24)
--- NOTE | 2022-05-03 08:53 | PM.IMPN1 ---
Progress Note: A&P Assessment and plan (1) Small bowel obstruction: Status: Acute Assessment and Plan: Improving. Advance diet per surgery. (2) Nutrition disorder: Status: Acute Assessment and Plan: Nutrition consult. Advance diet to low-fiber pending outpatient followup. Discontinue TPN (3) Electrolyte and fluid disorder: Status: Acute Assessment and Plan: Continue oral correction for hypokalemia Plan If doing well consider discharge to home tomorrow Time Spent With Patient Total time spent: Total time spent today is 35 minutes, 25 minutes in coordination of care and discussing with patient and other providers managing small-bowel obstruction, nutrition and electrolytes Subjective Date Seen: 05/03/22 Interval history: 66-year-old female seen in followup of small bowel obstruction. Patient has continued to have small mostly liquid stools. NG tube was replaced and she has not had increased abdominal pain or nausea. She has tolerated clear liquids very well. She is anxious to eat more food. She reports no breathing problems. Exam Narrative: Exam Narrative: She is alert and appears in no distress. Mood and affect are brighter today. Respirations with diminished breath sounds. No wheezing. Cardiovascular: S1, S2, regular rate and rhythm. Abdomen: Bowel sounds present. Abdomen is still has mild diffuse tenderness. Extremities without edema. Const: Vital Signs, click to edit/add: Vital Signs - 24 hr 05/02/22 11:59 05/02/22 15:16 05/02/22 15:18 Temperature 98.1 F 98.0 F Pulse Rate [Right Pulse Oximeter] 88 85 Respiratory Rate 20 20 18 Blood Pressure [Ri ght Arm] 145/81 H 135/76 Pulse Oximetry 94 95 97 Oxygen Delivery Me thod Nasal Cannula Nasal Cannula Nasal Cannula Oxygen Flow Rate 1.0 1 1 05/02/22 15:21 05/02/22 20:00 05/02/22 23:00 Temperature 98.4 F Pulse Rate [Right Pulse Oximeter] 85 90 Respiratory Rate 20 20 20 Blood Pressure [Ri ght Arm] 112/71 Pulse Oximetry 97 96 Oxygen Delivery Me thod Nasal Cannula Nasal Cannula Oxygen Flow Rate 1.0 1.0 05/03/22 00:00 05/03/22 04:00 Temperature 98.5 F 98.2 F Pulse Rate [Right Pulse Oximeter] 99 102 H Respiratory Rate 20 20 Blood Pressure [Ri ght Arm] 124/67 118/67 Pulse Oximetry 96 96 Oxygen Delivery Me thod Nasal Cannula Nasal Cannula Oxygen Flow Rate 1.0 1.0 Documenting provider has reviewed patient's vital signs: yes Labs Labs: Laboratory Results - last 24 hr 05/02/22 05/03/22 06:30 06:48 Sodium 138 136 Potassium 3.0 L 3.1 L Chloride 103 103 Carbon Dioxide 31 29 BUN 13 12 Creatinine 0.5 0.5 Estimated Creat Clear 44.34 44.34 Estimated GFR 102 102 Glucose 127 H 123 H Calcium 8.6 8.2 L Phosphorus 3.3 Magnesium 1.7 Total Bilirubin < 0.1 L AST 25 ALT 21 Alkaline Phosphatase 78 Total Protein 5.6 L Albumin 2.9 L
--- NOTE | 2022-05-03 08:55 | PM.GSPN ---
Subjective Subjective Date Seen: 05/03/22 Interval history: Patient is doing well this morning. She had some malt o meal for breakfast and tolerated that well. Denies any nausea or vomiting. Continues to pass gas and have liquidy stools. Is anxious to go home. Exam Narrative: Exam Narrative: Gen: alert and oriented, NAD Resp: on 1L NC, equal breath rise bilaterally Abdomen: soft, non distended and non tender. Const: Vital Signs, click to edit/add: Vital Signs - 24 hr 05/02/22 11:59 05/02/22 15:16 05/02/22 15:18 Temperature 98.1 F 98.0 F Pulse Rate [Right Pulse Oximeter] 88 85 Respiratory Rate 20 20 18 Blood Pressure [Ri ght Arm] 145/81 H 135/76 Pulse Oximetry 94 95 97 Oxygen Delivery Me thod Nasal Cannula Nasal Cannula Nasal Cannula Oxygen Flow Rate 1.0 1 1 05/02/22 15:21 05/02/22 20:00 05/02/22 23:00 Temperature 98.4 F Pulse Rate [Right Pulse Oximeter] 85 90 Respiratory Rate 20 20 20 Blood Pressure [Ri ght Arm] 112/71 Pulse Oximetry 97 96 Oxygen Delivery Me thod Nasal Cannula Nasal Cannula Oxygen Flow Rate 1.0 1.0 05/03/22 00:00 05/03/22 04:00 Temperature 98.5 F 98.2 F Pulse Rate [Right Pulse Oximeter] 99 102 H Respiratory Rate 20 20 Blood Pressure [Ri ght Arm] 124/67 118/67 Pulse Oximetry 96 96 Oxygen Delivery Me thod Nasal Cannula Nasal Cannula Oxygen Flow Rate 1.0 1.0 Labs/Imaging Labs Labs: BMP was some mild hypokalemia. Imaging Imaging: No new. Progress Note: A&P Assessment and plan (1) Small bowel obstruction: Status: Acute Assessment and Plan: Patient HD #8 early SBO. Patient has had return of bowel function. NG tube has been removed and diet advanced. She tolerated full liquids for breakfast, okay to progress to a low-fiber diet for lunch. Will have Nutrition common see her. I anticipate discharge tomorrow. Dr. Esposito to continue to manage electrolytes and TPN. Appreciate his assistance.
[2022-05-03] MEDS: IPRAT-ALBUT 0.5-2.5 MG/3 ML NEB 1 NEB IH ×3 (09:10→20:47)
[2022-05-03] MEDS: LORazepam 0.5 MG TABLET 1 MG PO ×2 (09:10→20:47)
[2022-05-03] MEDS: FLUTICASONE PROPION SALMETEROL 1 EACH IH ×2 (09:11→20:49)
--- NOTE | 2022-05-03 16:11 | NUTR.NU ---
RDN with verbal MD consult for diet education related to hemicolectomy and partial SBO. Patient had hemicolectomy 04/13/22 and discharged from hospital, however was readmitted 04/26/22 with partial SBO. RDN informed by nursing staff that patient is concerned about diet going home. RDN visited patient with daughter present. Patient was provided diet education on a low fiber diet. Discussed foods to include and foods to avoid until MD recommends advancing to high fiber diet. Education also provided on gradually increasing fiber and following a high fiber diet (25-35 grams/day) long-term.?RDN also recommended patient drink at least 8 cups of fluid daily, taking time at meals (including chewing food thoroughly), and eating small, frequent meals. Verbal and written information as well as sample menus provided on both diets from [facility].? Patient verbalized understanding.? RDN's contact information was provided and patient was encouraged to contact RDN with questions.
[2022-05-03] MEDS: ENOXAPARIN 40 MG/0.4 ML INJ SUBCUT (18:08)
[2022-05-03] MEDS: NICOTINE 21 MG PATCH 1 PATCH TRANSDERMA (18:09)
--- NOTE | 2022-05-03 19:01 | PC.NURSE ---
shift [id number] pt this shift tolerating full liquids in morning and advancement to full low-fiber diet. Spoke with casing inspector r/t bowel obstruction prevention. PRN ativan dc'd per Dr Esposito, pt requested this evening PRN. Discussed with Dr Bowles, Dr riggins add on PRN at this time, will address if still needing after scheduled dose HS. Ambulated the king x1 with family. Denies pain, multiple bowel movements this day. Napped about 2 hours this afternoon.
--- NOTE | 2022-05-03 22:32 | PC.NURSE ---
Shift Note 19-23: Pt pleasant and cooperative, up ad gemma in the room, tolerating activity well with supplemental O2 at 1L NC. PICC line in right upper arm is patent and asymptomatic. Pt is tolerating regular low fiber diet well denies nausea and pain. See eMAR for medication administration. Pt is anticipating early discharge tomorrow with daughter.
[2022-05-04 05:19] VITALS: BP 98/55; PULSE 95; RESP 20; TEMP 36.8; O2SAT 95
--- NOTE | 2022-05-04 06:25 | PC.NURSE ---
End of Shift: pt is still very very pleasant.? she slept well. she is up ab gemma. with 1 L nc in the room. no pain. ? IS was encouraged. ? ?picc is patent. ? she is using call light.? picc line dressing is C/D/I. ?She is passing gas. ? ?
[2022-05-04] MEDS: PANTOPRAZOLE SODIUM 40 MG INJ IVP (06:37)
[2022-05-04] MEDS: SODIUM CHLORIDE 0.9 % (FLUSH) 10 ML SYRINGE 5 ML IVF ×2 (06:38→08:49)
[2022-05-04 07:27] LABS: Chloride* 98 mmol/L (96-114); Potassium* 3.4 mmol/L (3.6-5.1); Sodium* 135 mmol/L (135-149)
[2022-05-04 07:30] LABS: Blood Urea Nitrogen* 10 mg/dL (7-30); Carbon Dioxide* 30 mmol/L (20-32); Creatinine* 0.6 mg/dL (0.5-1.5); Est. Creatinine Clearance* 44.34; Estimated Glomerular Filt Rate 98 ml/min; Glucose* 115 mg/dL (60-115)
[2022-05-04 07:31] LABS: Calcium* 8.6 mg/dL (8.4-10.6)
[2022-05-04 07:48] VITALS: BP 116/69; PULSE 104; RESP 18; TEMP 37.1; O2SAT 92
[2022-05-04] MEDS: LORazepam 0.5 MG TABLET 1 MG PO (08:01)
[2022-05-04] MEDS: FLUTICASONE PROPION SALMETEROL 1 EACH IH (08:49)
[2022-05-04] MEDS: IPRAT-ALBUT 0.5-2.5 MG/3 ML NEB 1 NEB IH (08:49)
[2022-05-04] MEDS: POTASSIUM CHLORIDE 10 MEQ CAPSULE ER 20 MEQ PO (08:51)
[2022-05-04] MEDS: FLUOXETINE HCL 20 MG CAPSULE 40 MG PO (08:52)
--- NOTE | 2022-05-04 09:49 | PM.GSPN ---
Subjective Subjective Date Seen: 05/04/22 Interval history: Patient is doing well this morning. Has been tolerating regular food without any nausea or vomiting. Continues to have loose stools with some incontinence and passage of gas. Denies any abdominal pain. Has been ambulating without difficulty. Exam Narrative: Exam Narrative: General: Alert and oriented, no acute distress. Lying in bed comfortably. Respiratory: Equal breath rise bilaterally, maintained on 1 L nasal cannula CV: Regular rhythm rate, well perfused Abdomen: Soft, nontender, nondistended with no guarding or rebound. Incisions healing well. Const: Vital Signs, click to edit/add: Vital Signs - 24 hr 05/03/22 12:00 05/03/22 15:00 05/03/22 15:00 Temperature 99.1 F Pulse Rate [Right Pulse Oximeter] 97 Respiratory Rate 26 H 26 H Blood Pressure [Le ft Arm] 98/61 Pulse Oximetry 97 98 Oxygen Delivery Me thod Nasal Cannula Nasal Cannula Oxygen Flow Rate 1 1 05/03/22 16:00 05/03/22 20:00 05/03/22 23:55 Temperature 98.1 F 97.7 F Pulse Rate [Right Pulse Oximeter] 102 H 98 Respiratory Rate 20 18 18 Blood Pressure [Le ft Arm] 103/68 109/66 Pulse Oximetry 98 90 92 Oxygen Delivery Me thod Nasal Cannula Nasal Cannula Nasal Cannula Oxygen Flow Rate 1 1 1 05/03/22 23:55 05/03/22 23:55 05/04/22 05:19 Temperature 98.4 F 98.3 F Pulse Rate [Right Pulse Oximeter] 94 94 95 Respiratory Rate 18 18 20 Blood Pressure [Le ft Arm] 112/70 98/55 L Pulse Oximetry 90 95 Oxygen Delivery Me thod Nasal Cannula Nasal Cannula Oxygen Flow Rate 1 1 05/04/22 07:48 05/04/22 07:48 Temperature 98.8 F Pulse Rate [Right Pulse Oximeter] 104 H Respiratory Rate 18 18 Blood Pressure [Le ft Arm] 116/69 Pulse Oximetry 92 92 Oxygen Delivery Me thod Nasal Cannula Nasal Cannula Oxygen Flow Rate 1 1 Labs/Imaging Labs Labs: BMP this morning with mild hypokalemia, being managed by the hospitalist. Progress Note: A&P Assessment and plan (1) Small bowel obstruction: Status: Acute Assessment and Plan: Patient HD #9 early SBO. Patient has had return of bowel function and is tolerating a regular diet. TPN has been titrated off. Plan for discharge this morning.
--- NOTE | 2022-05-04 10:01 | P.DS_ITS ---
DS: Providers Provider Date Seen: 05/04/22 Date of admission: 04/28/22 11:53 Primary care physician: Robert Riley MD Admitting Clinician: Magda Hartman MD Attending Physician on discharge: Magda Hartman MD Date of Discharge: 05/04/22 DS: Diagnosis Discharge Diagnosis (1) Small bowel obstruction: Status: Acute Problem details: Postop small-bowel obstruction now resolved. Patient treated with NG suctioning and TPN. Now having diarrhea stools. (2) Hypokalemia: Status: Acute Problem details: Likely due to diarrhea stools. Continue potassium replacement with outpatient monitoring of potassium. (3) Diarrhea: Status: Acute Problem details: Diarrhea following small-bowel obstruction and right hemicolectomy. Anticipate improvement over the next couple weeks. (4) S/P right hemicolectomy: Status: Acute Problem details: 04/13/22 (5) Generalized anxiety disorder: Status: Acute Problem details: Continue outpatient medications (6) Chronic obstructive pulmonary disease: Status: Acute Problem details: Home O2 1L at rest, 3L with activity DS: Summary Hospital Course Hospital Course: 66-year-old female admitted to the hospital with abdominal pain and vomiting. She was found to have a small-bowel obstruction. This was thought to be secondary to right hemicolectomy done 2 weeks ago. She was treated conservatively, initially IV fluids without NG suctioning. She got worse so NG suctioning was initiated and TPN was started. Over the 2 days she has began to have diarrhea stools and tolerating p.o. food and fluid very well. Potassium remains low. Likely due to diarrhea. Status at Discharge Functional status at discharge: independent ambulation Overall status at discharge: patient is back to baseline Time Spent with Patient Time attestation: Total time spent providing and/or coordinating discharge services: 40 minutes Time spent: Greater than 30 minutes Exam Narrative: Exam Narrative: She is alert and appears in no distress. Abdomen: Bowel sounds are present. Abdomen is soft with mild diffuse tenderness. No edema. Const: Vital Signs, click to edit/add: Vital Signs - 24 hr 05/03/22 12:00 05/03/22 15:00 05/03/22 15:00 Temperature 99.1 F Pulse Rate [Right Pulse Oximeter] 97 Respiratory Rate 26 H 26 H Blood Pressure [Le ft Arm] 98/61 Pulse Oximetry 97 98 Oxygen Delivery Me thod Nasal Cannula Nasal Cannula Oxygen Flow Rate 1 1 05/03/22 16:00 05/03/22 20:00 05/03/22 23:55 Temperature 98.1 F 97.7 F Pulse Rate [Right Pulse Oximeter] 102 H 98 Respiratory Rate 20 18 18 Blood Pressure [Le ft Arm] 103/68 109/66 Pulse Oximetry 98 90 92 Oxygen Delivery Me thod Nasal Cannula Nasal Cannula Nasal Cannula Oxygen Flow Rate 1 1 1 05/03/22 23:55 05/03/22 23:55 05/04/22 05:19 Temperature 98.4 F 98.3 F Pulse Rate [Right Pulse Oximeter] 94 94 95 Respiratory Rate 18 18 20 Blood Pressure [Le ft Arm] 112/70 98/55 L Pulse Oximetry 90 95 Oxygen Delivery Me thod Nasal Cannula Nasal Cannula Oxygen Flow Rate 1 1 05/04/22 07:48 05/04/22 07:48 Temperature 98.8 F Pulse Rate [Right Pulse Oximeter] 104 H Respiratory Rate 18 18 Blood Pressure [Le ft Arm] 116/69 Pulse Oximetry 92 92 Oxygen Delivery Me thod Nasal Cannula Nasal Cannula Oxygen Flow Rate 1 1 Documenting provider has reviewed patient's vital signs: yes DS: Data Data Completed and Pending Labs on day of discharge: Labs from last 24 hours 05/04/22 05/03/22 06:57 15:30 Sodium 135 Potassium 3.4 L 4.0 Chloride 98 Carbon Dioxide 30 BUN 10 Creatinine 0.6 Estimated Creat Clear 44.34 Estimated GFR 98 Glucose 115 Calcium 8.6 Discharge Plan Discharge Disposition: Home, Self-Care Date of Admission: 04/28/22 11:53 Attending Provider on Discharge: Jaret Esposito Primary Care Provider: Robert Riley Condition: Improved Anticipated Discharge Date/Time: 05/04/22 10:00 Discharge Medications: New potassium chloride 8 mEq capsule, extended release 8 meq PO BID Qty: 60 2RF Continued fluticasone propion-salmeterol 500-50 mcg/dose blister with device 1 inh inhalation BID tiotropium bromide 18 mcg capsule, w/inhalation device 18 mcg inhalation DAILY lorazepam 1 mg tablet 1 mg PO BID PRN duloxetine 60 mg capsule,delayed release(DR/EC) 60 mg PO DAILY ergocalciferol (vitamin D2) 1,250 mcg (50,000 unit) capsule 50,000 unit PO .Once Weekly albuterol sulfate 90 mcg/actuation HFA aerosol inhaler 2 inh inhalation Q4-6H PRN fluoxetine 40 mg capsule 40 mg PO DAILY famotidine 20 mg tablet 20 mg PO BID PRN oxycodone-acetaminophen [Percocet] 5-325 mg tablet 1 tab PO Q6H PRN (Reason: pain) Qty: 30 0RF ondansetron 4 mg tablet,disintegrating 4 mg PO Q8H PRN (Reason: nausea and vomiting) Qty: 7 0RF nicotine 21 mg/24 hr Patch 24 Hour 1 patch transdermal Q24H Qty: 28 0RF ipratropium-albuterol 0.5 mg-3 mg(2.5 mg base)/3 mL Solution For Nebulization 1 neb inhalation QID Qty: 20 0RF (DME) Home Oxygen Misc See Rx Instructions .Route Qty: 1 0RF Rx Instructions: 1 liter/minute nasal cannula at rest, 3 liter/minute nasal cannula with activity, continuous, duration the 99 months (DME) nebulizer and compressor Device See Rx Instructions .Route Qty: 1 0RF Rx Instructions: As directed (DME) nebulizer accessories Kit See Rx Instructions .Route Qty: 1 0RF Rx Instructions: As directed Changed celecoxib 200 mg capsule 200 mg PO DAILY Qty: 30 0RF Discontinued prednisone 20 mg Tablet 20 mg PO DAILYWM Qty: 1 0RF Discharge Orders: Discharge Order (Routine); Ordered 05/04/22 Ordered By: Jaret Esposito Follow Up Appointments: Magda Hartman MD [Staff Physician] - (1 week) Robert Riley MD [Primary Care Provider] - (Follow up next week for recheck of potassium, diarrhea, COPD) Forms: [facility] Info Instructions
[2022-06-01 12:49] LABS: Prealbumin 11.3
== END 2022-05-04 11:40 | disposition home or self-care (01) | DRG 390 ==
LOC: MEDSURG 16:47
PROVIDERS: Family Medicine; Admitting Provider Surgery; PCP Family Medicine; Visit Provider Surgery
DX: K56.600 Partial intestinal obstruction, unspecified as to cause (principal); J44.9 Chronic obstructive pulmonary disease, unspecified; I71.2 Thoracic aortic aneurysm, without rupture; K21.9 Gastro-esophageal reflux disease without esophagitis; I27.20 Pulmonary hypertension, unspecified; F17.210 Nicotine dependence, cigarettes, uncomplicated; F32.A Depression, unspecified; F41.1 Generalized anxiety disorder; R25.1 Tremor, unspecified; E78.5 Hyperlipidemia, unspecified
CPT/HCPCS: 36415; 36573; 71045; 74177; 74240; 74248; 76937; 80048; 80053; 82947; 83735; 84100; 84132; 84134; 84478; 85025; 85610; 87635; 94640; A9270; B4185; B4189; C1751; C9113; G0378; J1650; J2060; J2405; J7030; J7050; J7120; Q9967; S4990

== ENCOUNTER 2024-05-10 11:17 | Outpatient (CLI) | payer OTHER, SELFPAY | END 2024-05-10 11:18 | disposition home or self-care (01) | PROVIDERS: PCP Family Medicine; Visit Provider Family Medicine | DX: E55.9 Vitamin D deficiency, unspecified (principal); I27.20 Pulmonary hypertension, unspecified | CPT/HCPCS: 80048; 80061; 82306; 85025 ==

== ENCOUNTER 2025-03-03 14:03 | Inpatient (IN) | payer MEDICARE, SELFPAY ==
[2025-03-03] VITALS (14 sets, daily range): BP systolic 112–118; BP diastolic 70–82; PULSE 80–120; RESP 24–26; TEMP 36.8–37.1; O2SAT 90–99
--- OUTSIDE RECORDS SUMMARY | 2025-03-03 14:05 | XMS_ITS | Clinical Summary ---
Author Organization [facility] Address [address] [place] [id number] Care Team Providers Care Relay Repairer Name Role Phone Robert Riley MD Primary Care Provider + Allergies Active Allergy Reactions Criticality Noted Date Comments Cefadroxil Shortness Of Breath 11/21/2006 Erythromycin Stomach Upset 01/05/2018 Medications FLUoxetine (PROZAC) 40 mg capsuleIndicatio ns:Right upper quadrant abdominal pain TAKE ONE CAPSULE BY MOUTH EVERY DAY IN THE MORNING 90 capsule 1 9 Active LORazepam (ATIVAN) 0.5 mg tabIndications:M oderate episode of recurrent major depressive disorder (HC) 1 tablet in the am as needed, 1 tablet in the afternoon as needed, and 1-2 at bedtime as needed(tapering) - 56 tablet 9 Active Additional Information Patient taking differently: 1 mg Oral, 1 tablet in the am as needed, 1 tablet in the afternoon as needed, and 1-2 at bedtime as needed(tapering)-, Reported on 12/06/2024 cholecalciferol (VITAMIN D3) 50,000 unit capsule Take 1,250 mcg by mouth once weekly. Active famotidine (PEPCID) 20 mg tablet Take 20 mg by mouth two times daily. Active albuterol-ipratr opium (DUONEB) (2.5-0.5 mg) in 3 mL NEBULIZATION solution Inhale 1 Vial by mouth 4 times daily if needed for Shortness Of Breath. Active thiamine (Vitamin B-1) 100 mg tablet Take 50 mg by mouth once daily. Active ergocalciferol (,vitamin D2,) 50,000 unit capsule Take 50,000 units by mouth once weekly. 3 Active nicotine 7 mg/24 hr (NICODERM; HABITROL) 7 mg/24 hr patchIndications :Tobacco abuse Apply 1 Patch on dry, clean, hairless skin once daily. 28 Patch 1 5 Active Ventolin HFA 90 mcg/actuation inhalerIndicatio ns:Centrilobular emphysema (HC) Inhale 1-2 Puffs by mouth every 4 hours if needed for Shortness Of Breath. 1 Each 9 5 Active oxygen-air delivery systems (HOME OXYGEN)Indicatio ns:Centrilobular emphysema (HC) Portable Oxygen Concentrator for home use. Liters per minute: 2L per nasal cannula. Frequency of use: Continuous with portability.;. Length of need: 99 Months. 1 Each 5 Active fluticasone fur-umeclidinium -vilanterol (Trelegy Ellipta) 200-62.5-25 mcg inhalerIndicatio ns:Centrilobular emphysema (HC) Inhale 1 Puff by mouth once daily. 180 Each 3 5 Active predniSONE 20 mg tabletIndication s:Chronic obstructive pulmonary disease, unspecified COPD type (HC) Take 2 Tablets (40 mg) by mouth once daily with a meal. 10 Tablet 5 Active albuterol-ipratr opium (2.5-0.5 mg) in 3 mL NEBULIZATION solutionIndicati ons:Chronic obstructive pulmonary disease, unspecified COPD type (HC) Inhale 3 mL via a nebulizer 4 times daily if needed for Shortness Of Breath or Wheezing. 360 mL 11 5 Active Active Problems Problem Noted Date Diagnosed Date Centrilobular emphysema 02/05/2018 Hyperlipidemia 02/25/2009 Major depressive disorder, recurrent episode, mo derate 01/26/2009 Fibromyalgia 11/22/2006 Anxiety state, unspecified 11/22/2006 Migraine, unspecified, witho ut mention of intractable migraine without mention of status migrainosus 11/22/2006 Narcotic Overuse 11/22/2006 Cholecystitis Resolved Problems Problem Noted Date Diagnosed Date Resolved Date Impacted cerumen of right ear 01/05/2018 02/05/2018 Issue of repeat prescriptions 04/28/2011 10/06/2018 Overview (04/28/2011): Fibromyalgia, Migraine - taking Vicodin Depressive disorder, not elsewhere classified 11/22/19 07 01/26/2009 Encounters Date Type Department Care Team Description 01/03/2025 Nurse Triage [facility] [address] [place] [phone] Otto Kirby MD Breathing Problem 12/06/2024 3:30 PM CDT Office Visit [facility] [address] [place] [id number] Otto Kirby MD Follow Up 12/06/2024 Travel from Last 3 Months Immunizations Immunization Administration Dates Next Due AMB Influenza, IIV4 PF (=>6 mos Flulaval,Fluzone Fluarix)(Flu Clinic Only) 07/16/2016 Influenza, High-dose Inactivated 07/27/2019 Influenza, High-dose Quadriv alent Inactivated 08/10/2022,08/10/2021,07/25/2020 Influenza, IIV3 (Age >=3 years) 06/23/2009 Influenza, IIV4 07/12/2018 Pneumococcal Poly,23-Valent (Pneumovax) 07/25/20 20 Pneumococcal conj 13-Valent (Prevnar 13) 018 Family History Medical History Relation Name Comments Asthma Father COPD Hypertension Father Heart Disease Mother Relation Name Status Comments Father Mother Social History Tobacco Use Types Packs/Day Years Used Date Smoking Tobacco: Every Day Cigarettes 0.5 30 Smokeless Tobacco: Never Tobacco Cessation:Ready to Q uit: Yes; Counseling Given: No Comments:wants to try chantix, smokes 5-6 cigarettes per day Alcohol Use Standard Drinks/Week Comments Not Currently 0 (1 standard drink = 0.6 oz pur e alcohol) Occasional PHQ-2 Answer Date Recorded PHQ-2 Score 1 11/25/2018 Comments No Sex and Gender Information Value Date Recorded Sex Assigned at Not on file Legal Sex Female 5:23 AM [employer] Gender Identity Not on file Sexual Orientation Not on file Obstetrics History Last Filed Vital Signs Vital Sign Reading Time Taken Comments Blood Pressure 102/60 06/23/2023 7:06 PM CDT Pulse 93 06/23/2023 7:06 PM CDT Temperature 36.7 C (98 F) 06/23/2023 7:06 PM CDT Respiratory Rate 18 06/23/2023 7:06 PM CDT Oxygen Saturation 94% 06/23/2023 7:0 6 PM CDT On 1liter per N/C Inhaled Oxygen Concentration - - Weight 42.4 kg (93 lb 8 oz) 12/06/2024 3:28 PM CDT Height 162.6 cm (5' 4) 12/06/2024 3:28 PM CDT Body Mass Index 16.05 12/06/2024 3:28 PM CDT Plan of Treatment Health Maintenance Due Date Last Done Comments Tdap 1964 Hepatitis C screening for age 18-79 1971 Tetanus booster 1973 Colonoscopy through age [address] (for lung CA) age 50-80 2003 Zoster (shingles) series for age 50+ (1 of 2) 2003 Mammogram for age 45-75 05/25/2013 05/25/2012 RSV vaccine for adults or (1 - Risk 60-74 years 1-dose series) 2013 DEXA/DXA scan for age 65+ 2018 Medicare Wellness for age 65+ 2018 Depression screening for age 12+ 10/09/2019 10/09/2018, 10/06/2018, 10/06/2018, Additional history exists Lipids for age 45-75 02/02/2023 02/02/2018, 01/13/2011, 09/01/2009, Additional history exists COVID-19 vaccine series ( season) 2024 09/06/2023, 08/10/2022, 06/21/2021, Additional history exists Influenza Vaccine (Season Ended) 2025 07/27/2019, 07/12/2018, 07/16/2016, Additional history exists BMI (ht and wt on same day) for age 18+ 12/06/2025 12/06/2024, 08/27/2024, 10/06/2018, Additional history exists Pneumococcal series for age 50+ Completed 07/25/2020, 07/12/2018 Hepatitis B series for 19+ Aged Out N o longer eligible based on patient's age to complete this topic Procedures Procedure Name Priority Date/Time Associated Diagnosis Comments LIPID PANEL W REFLEX MEASURED LDL Routine 02/02/2018 11:29 AM CDT Hyperlipidemia, unspecified hyperlipidemia type from Last 3 Months or Most Recently Relevant to Health Maintenance Results * (ABNORMAL) LIPID PANEL W REFLEX MEASURED LDL (02/02/2018 11:29 AM CDT) CHOLESTEROL,TOTAL 241(H) 100 - 199 mg/dL 02/02/2018 12:07 PM CDT [facility] TRIGLYCERIDES 117 <150 mg/dL 02/02/2018 12:07 PM CDT [facility] HDL CHOLESTEROL 81 >40 mg/dL 8 12:07 PM CDT [facility] NON-HDL CHOLESTEROL 160(H) <145 mg/dl 02/02/2018 12:07 PM CDT [facility] CHOL/HDL RATIO 2.98 <4.50 02/02/2018 12:07 PM CDT [facility] LDL CHOLESTEROL 137(H) <=130 mg/dL 02/02/2018 12:07 PM CDT [facility] PROVIDER ORDERED STATUS RANDOM 02/02/2018 12:07 PM CDT [facility] Blood BLOOD SPECIMEN / Unknown Butterfly / Unknown 02/02/2018 11:29 AM CDT 02/02/2018 11:29 AM CDT us Robert Riley MD CHEMISTRY Final Re sult [facility] [address] [place] [address] from Last 3 Months or Most Recently Relevant to Health Maintenance Insurance [facility] MEDICARE ADVANTAGE MR [employer] GOLD CHOICE MR MEDICARE [place] ONLY Care Teams Relay Repairer Relationship Specialty Start Date End Date Robert Riley MD [address] [place] [address] PCP - General Family Practice 04/17/22
--- OUTSIDE RECORDS SUMMARY | 2025-03-03 14:05 | XMS_ITS | Clinical Summary ---
Author Organization [facility] Address [address] [facility] [place] [address] Care Team Providers Care Pulling Unit Floorhand Name Role Phone Eli Basilio RT Unavailable Unavailabl Jennifer Quinonez MD Primary Care Provider [phone] Allergies No known active allergies Medications albuterol (PROAIR HFA/PROVENTIL HFA/VENTOLIN HFA) 108 (90 Base) MCG/ACT inhaler Inhale 2 puffs into the lungs every 6 hours as needed for shortness of breath, wheezing or cough Active cholecalciferol (VITAMIN D3) 1250 mcg (47293 units) capsule Take 1,250 mcg by mouth every 7 days Active FLUoxetine (PROZAC) 40 MG capsule Take 40 mg by mouth daily Active famotidine (PEPCID) 20 MG tablet Take 20 mg by mouth 2 times daily Active fluticasone-salm eterol (ADVAIR) 500-50 MCG/ACT inhaler Inhale 1 puff into the lungs every 12 hours Active ipratropium - albuterol 0.5 mg/2.5 mg/3 mL (DUONEB) 0.5-2.5 (3) MG/3ML neb solution Take 1 vial by nebulization 4 times daily as needed for shortness of breath, wheezing or cough Active tiotropium (SPIRIVA) 18 MCG inhaled capsule Inhale 18 mcg into the lungs daily Active HEMP OIL OR EXTRACT OR OTHER CBD CANNABINOID, NOT MEDICAL CANNABIS, Take 1 Gum by mouth as needed (CBD gummies PRN) Active thiamine (B-1) 100 MG tabletIndication s:COPD exacerbation (H),Severe protein-calorie malnutrition Take 1 tablet (100 mg) by mouth daily 90 tablet 3 Active predniSONE (DELTASONE) 10 MG tabletIndication s:COPD exacerbation (H) Take 3 tablets (30 mg) by mouth daily 9 tablet 3 Active predniSONE (DELTASONE) 20 MG tabletIndication s:COPD exacerbation (H) Take 1 tablet (20 mg) by mouth daily 18 tablet 3 Active predniSONE (DELTASONE) 10 MG tabletIndication s:COPD exacerbation (H) Take 1 tablet (10 mg) by mouth daily 9 tablet 3 Active predniSONE (DELTASONE) 5 MG tabletIndication s:COPD exacerbation (H) Take 1 tablet (5 mg) by mouth daily 9 tablet 3 Active pantoprazole (PROTONIX) 40 MG EC tabletIndication s:COPD exacerbation (H) Take 1 tablet (40 mg) by mouth every morning (before breakfast) 60 tablet 3 Active nicotine (NICODERM CQ) 14 MG/24HR 24 hr patchIndications :COPD exacerbation (H),Encounter for smoking cessation counseling Place 1 patch onto the skin daily 90 patch 3 Active multivitamin w/minerals (THERA-VIT-M) tabletIndication s:COPD exacerbation (H),Severe protein-calorie malnutrition Take 1 tablet by mouth daily 90 tablet 3 Active hydrOXYzine (ATARAX) 50 MG tabletIndication s:COPD exacerbation (H),Anxiety Take 1 tablet (50 mg) by mouth every 4 hours 90 tablet 2 3 Active gabapentin (NEURONTIN) 100 MG capsuleIndicatio ns:COPD exacerbation (H),Anxiety Take 1 capsule (100 mg) by mouth 2 times daily 60 capsule 1 3 Active LORazepam (ATIVAN) 1 MG tabletIndication s:COPD exacerbation (H),Anxiety Take 1 tablet (1 mg) by mouth 2 times daily as needed for anxiety 20 tablet 3 Active sennosides (SENOKOT) 8.6 MG tabletIndication s:COPD exacerbation (H) Take 1 tablet by mouth 2 times daily as needed for constipation 60 tablet 3 Active polyethylene glycol (MIRALAX) 17 GM/Dose powderIndication s:COPD exacerbation (H) Take 17 g (1 Capful) by mouth daily 507 g 3 Active nicotine (COMMIT) 2 MG lozengeIndicatio ns:COPD exacerbation (H),Encounter for smoking cessation counseling Place 1 lozenge (2 mg) inside cheek every hour as needed for smoking cessation 90 lozenge 3 Active Active Problems Problem Noted Date Diagnosed Date Severe malnutrition 02/19/2023 Anxiety 02/19/2023 Hypoxia 02/07/2023 COPD exacerbation 02/07/2023 Encounters Date Type Department Care Team Description 01/11/2025 Documentation Only [address] [id number] Jennifer López MD Orders (OXYGEN RENEWAL) from Last 3 Months Immunizations Immunization Administration Dates Next Due COVID-19 MONOVALENT 12+ (Pfizer) 06/21/2021,10/28,10/25/2020 Influenza Vaccine 65+ (Fluzone HD) 08/10/2022,,07/25/2020 Pneumo Conj 13-V (2010&after) 07/12/2018 Pneumococcal 23 valent 07/25/2020 Social History Tobacco Use Types Packs/Day Years Used Date Smoking Tobacco: Every Day Cigarettes 1 53.4 Started: 1971 Smokeless Tobacco: Never Tobacco Cessation:Ready to Q uit: Not Asked; Counseling Given: Not Answered Comments:Seen IP by CTTS on 02/10/2023; patient down to 1/2 ppd, see consult note for details. Adolescent Education Answer Date Record ed Getting School Help Needed Not on file 06/18 Comments No Sex and Gender Information Value Date Recorded Sex Assigned at Not on file Legal Sex Female 1:00 PM CDT Gender Identity Not on file Sexual Orientation Not on file Last Filed Vital Signs Vital Sign Reading Time Taken Comments Blood Pressure 100/58 02/18/2023 8:31 AM CDT Pulse 90 02/18/2023 8:31 AM CDT Temperature 37.1 C (98.7 F) 02/18/2023 8:31 AM CDT Respiratory Rate 20 02/18/2023 8:31 AM CDT Oxygen Saturation 93% 02/18/2023 11:21 AM CDT Inhaled Oxygen Concentration - - Weight 41.1 kg (90 lb 9.7 oz) 02/14/2023 12:00 A M CDT Height 163 cm (5' 4.17) 02/08/2023 12:53 PM CDT Body Mass Index 15.47 02/08/2023 12:53 PM CDT Plan of Treatment Health Maintenance Due Date Last Done Comments ADVANCE CARE PLANNING 1955 ANNUAL REVIEW OF HM ORDERS 1953 COPD ACTION PLAN 1953 CT COLONOGRAPHY 1953 DEXA 1953 FIT 1953 FLEX SIG 1953 MAMMO SCREENING 1953 SPIROMETRY 1953 sDNA (Cologuard) 1953 COLONOSCOPY 1963 COLORECTAL CANCER SCREENING 1963 HEPATITIS C SCREENING 1971 DTAP/TDAP/TD VACCINE (1 - Tdap) 1978 LIPID 1993 ZOSTER VACCINE (1 of 2) 2003 RSV VACCINE (1 - Risk 60-74 years 1-dose series) 2013 FALL RISK ASSESSMENT 2018 MEDICARE ANNUAL WELLNESS VISIT 2018 LUNG CANCER SCREENING 02/09/2024 02/08/2023 COVID-19 VACCINE ( season) 2024 08/10/2022, 06/21/2021, 11/15/2020, Additional history exists PHQ-2 (once per calendar year) 2024 INFLUENZA VACCINE (Season Ended) 2025 08/10/2022, 08/10/2021, 07/25/2020, Additional history exists DIABETES SCREENING 02/18/2026 02/18/2023, 0 02/18/2023, 02/17/2023, Additional history exists PNEUMOCOCCAL VACCINE 50+ YEARS Completed 07/25/2020, 07/12/2018 HPV VACCINE Aged Out No longer eligi ble based on patient's age to complete this topic MENINGITIS VACCINE Aged Out No longer eligible based on patient's age to complete this topic Procedures Procedure Name Priority Date/Time Associated Diagnosis Comments BASIC METABOLIC PANEL Routine 02/18/2023 5:[address] CHEST W/O CONTRAST Routine 02/08/2023 6:46 PM CDT from Last 3 Months or Most Recently Relevant to Health Maintenance Results * (ABNORMAL) Basic metabolic panel (02/18/2023 5:37 AM CDT) Sodium 142 136 - 145 mmol/L 02/18/2023 6:25 AM CDT [facility] Potassium 3.4 3.4 - 5.3 mmol/L 02/18/2023 6:25 AM CDT [facility] Chloride 103 98 - 107 mmol/L 02/18/2023 6:25 AM CDT [facility] Carbon Dioxide (CO2) 31(H) 22 - 29 mmol/L 02/18/2023 6:25 AM CDT [facility] Anion Gap 8 7 - 15 mmol/L 02/18/2023 6:25 AM CDT [facility] Urea Nitrogen 16.8 8.0 - 23.0 mg/dL 02/18/2023 6:25 AM CDT [facility] Creatinine 0.68 0.51 - 0.95 mg/dL 02/18/2023 6:25 AM CDT [facility] Calcium 9.2 8.8 - 10.2 mg/dL 02/18/2023 6:25 AM CDT [facility] Glucose 100(H) 70 - 99 mg/dL 02/18/2023 6:25 AM CDT [facility] GFR Estimate >90 >60 mL/min/1.7 3m2 02/18/2023 6:25 AM CDT [facility] Comment:eGFR calculated us2020 CKD-EPI equation. Blood STRUCTURE OF RIGHT HAND / Unknown Venipuncture / Unknown 02/18/2023 5:37 AM CDT 02/18/2023 5:49 AM CDT us Qamar Weir MD LAB - BLOOD ORDERABLES Fin al Result [facility] [address] [place] [address], [facility] [phone] * CT Chest w/o Contrast (02/08/2023 6:46 PM CDT) Anatomical Region Laterality Modality Chest, SUBRAD CT BODY, UMP CT CHEST, RAD CT Computed Tomography 02/08/2023 6:46 PM CDT Impressions 02/08/2023 8:21 PM CDT IMPRESSION: 1. Findings of infectious or inflammatory airways disease. Mild to moderate bilateral airway thickening. Retained airway debris. 2. Minimal infectious / inflammatory centrilobular and tree-in-bud nodules. 3. Moderately extensive emphysema. 4. Moderate coronary calcification. 5. Mild pulmonary trunk enlargement; correlate for pulmonary hypertension. Narrative 02/08/2023 8:21 PM CDT EXAM: CT CHEST W/O CONTRAST LOCATION: [facility] DATE/TIME: 02/08/2023 6:46 PM CDT INDICATION: Hypoxia. COMPARISON: None. TECHNIQUE: CT chest without IV contrast. Multiplanar reformats were obtained. Dose reduction techniques were used. CONTRAST: None. FINDINGS: LUNGS AND PLEURA: Moderate emphysema. Mild to moderate bilateral airway thickening. Mild retained airway debris. Minimal centrilobular and tree-in-bud nodules bilaterally. No pleural effusion or pneumothorax. MEDIASTINUM/AXILLAE: No adenopathy. Nonaneurysmal aorta. Mild pulmonary trunk enlargement at 3.2 cm. Normal heart size. No pericardial effusion. CORONARY ARTERY CALCIFICATION: Moderate. UPPER ABDOMEN: Cholecystectomy. MUSCULOSKELETAL: Bony demineralization and degenerative changes. Procedure Note Miguel Brandon DO - 02/08/2023 EXAM: CT CHEST W/O CONTRAST LOCATION: [facility] DATE/TIME: 02/08/2023 6:46 PM CDT INDICATION: Hypoxia. COMPARISON: None. TECHNIQUE: CT chest without IV contrast. Multiplanar reformats wereobtained. Dose reduction techniques were used. CONTRAST: None. FINDINGS: LUNGS AND PLEURA: Moderate emphysema. Mild to moderate bilateral airwaythickening. Mild retained airway debris. Minimal centrilobular kwqjevk-ma-nux nodules bilaterally. No pleural effusion or pneumothorax. MEDIASTINUM/AXILLAE: No adenopathy. Nonaneurysmal aorta. Mild pulmonarytrunk enlargement at 3.2 cm. Normal heart size. No pericardial effusion. CORONARY ARTERY CALCIFICATION: Moderate. UPPER ABDOMEN: Cholecystectomy. MUSCULOSKELETAL: Bony demineralization and degenerative changes. IMPRESSION: 1. Findings of infectious or inflammatory airways disease. Mild tomoderate bilateral airway thickening. Retained airway debris. 2. Minimal infectious / inflammatory centrilobular and zzyp-oa-lnpyfwcyav. 3. Moderately extensive emphysema. 4. Moderate coronary calcification. 5. Mild pulmonary trunk enlargement; correlate for pulmonaryhypertension. Brenda Mullins APRN LINOLEUM TILE LAYER IMG CT ORDERABLES Final Re sult from Last 3 Months or Most Recently Relevant to Health Maintenance Insurance [facility] MEDICARE ADVANTAGE Advance Directives For more information, please contact: [phone] * Full Code (Latest Code Status on File) Date Activated Date Inactivated Comments 02/07/2023 7:36 PM 02/18/2023 4:41 PM All basic an d advanced life-sustaining interventions are performed as appropriate Question Answer Comments Code status determined by: Discussion with felicity nt/ legal decision maker Care Teams Pulling Unit Floorhand Relationship Specialty Start Date End Date Jennifer López MD PCP - General Student in organized health care education/training program 04/20/23 Eli Basilio, RT Chronic Scrubber System Attendant Respiratory Therapy 02/10/23
--- OUTSIDE RECORDS SUMMARY | 2025-03-03 14:06 | XMS_ITS | Clinical Summary ---
Author Organization [facility] Address [address], [place] [address] Care Team Providers Care Vehicle Check In Clerk Name Role Phone Robert Riley MD Primary Care Provider [phone] Source Comments You are receiving this document as you are listed as the primary care provider,follow-up provider, or the patient has been referred to you for consultation.This is in compliance with the Medicare andMedicaid EHR Incentive Program,which states Providers who transition their patient to another setting of careor provider of care or refers their patient to another provider of care shouldprovide summary care record for each transition of care or referral. [facility] Allerg[facility] Active Allergy Reactions Criticality Noted Date Comments Cefadroxil Respiratory Distress High 11/21/2006 Erythromycin Gastrointestinal 01/05/2018 Medications ALBUterol sulfate HFA 108 (90 Base) MCG/ACT inhaler Inhale 2 Puffs every 4 hours as needed for Wheezing or Shortness of Breath. Every 4-6 hours as needed Active cholecalciferol (VITAMIN D3) 1.25 MG (25178 UT) capsule Take 1 Capsule (50,000 Units) by mouth once every week. On Tuesday Active FLUoxetine (PROZAC) 40 MG capsule 1 Capsule (40 mg) daily. Active famotidine (PEPCID) 20 MG tablet Take 1 Tablet (20 mg) by mouth two times daily as needed. For GERD Active fluticasone-hillary meterol (ADVAIR) 500-50 MCG/ACT diskus inhaler Inhale 1 Puff two times a day. Active gabapentin (NEURONTIN) 100 MG capsule Take 1 Capsule (100 mg) by mouth two times a day. Active hydrOXYzine HCl (ATARAX) 50 MG tablet Take 1 Tablet (50 mg) by mouth two times daily as needed for Anxiety. 3 Active LORazepam (ATIVAN) 1 MG tablet Take 1 Tablet (1 mg) by mouth two times daily as needed for Anxiety. Active nicotine (NICODERM CQ) 14 MG/24HR patch Apply 1 Patch to skin every 24 hours[address] (PROTONIX) 40 MG tablet Take 1 Tablet (40 mg) by mouth daily. Before breakfast Active SPIRIVA HANDIHALER 18 MCG inhaler Inhale 1 Capsule (18 mcg) daily. Active multivitamin (THERAGRAN) tablet Take 1 Tablet by mouth daily. Thera-M Plus 9mg iron-400 mcg FA - calcium minerals Active Calcium Carbonate Antacid (CALCIUM CARBONATE OR) Take 500 mg by mouth daily. OTC gummy. Active tretinoin (RETIN-A) 0.025 % cream Apply topically every evening. Active thiamine (VITAMINB-1) 50 MG tablet Take 1 Tablet (50 mg) by mouth daily. Active Vitamin D, Ergocalciferol, 1.25 MG (21097 UT) CAPS Take 1 Capsule (50,000 Units) by mouth once every week. 3 Active ipratropium-alb uterol (DUONEB) 0.5-2.5 (3) mg/3ml nebulizer solution Inhale 3 mL 4 times daily as needed. Active Active Problems Problem Noted Date Diagnosed Date Acute chest wall pain 08/19/2023 Generalized muscle weakness 08/19/2023 Acute on chronic respiratory failure with hypoxia and hypercapnia 08/16/2023 Elevated troponin 08/16/2023 Hyperglycemia 08/16/2023 Resolved Problems Problem Noted Date Diagnosed Date Resolved Date COPD with acute exacerbation 08/16/2023 03/04/2024 CAP (community acquired pneumonia) 08/16/2023 02/14/2024 Social History Tobacco Use Types Packs/Day Years Used Date Smoking Tobacco: Former Cigarettes Q uit: 08/16/2023 Tobacco Cessation:Counseling Given: Not Answered Alcohol Use Standard Drinks/Week Comments Not Currently 0 (1 standard drink = 0.6 oz pur e alcohol) PHQ-2 Answer Date Recorded PHQ-2 Score 4 08/23/2023 Hunger Vital Sign Answer Date Recorded Within the past 12 months, y ou worried that your food would run out before you got the money to buy more. Never true 08/17/20 23 Within the past 12 months, t he food you bought just didn't last and you didn't have money to get more. Never true 08/17/2023 Comments Unknown Sex and Gender Information Value Date Recorded Sex Assigned at Not on file Legal Sex Female 6:39 PM [employer] Gender Identity Not on file Sexual Orientation Not on file Last Filed Vital Signs Vital Sign Reading Time Taken Comments Blood Pressure 87/51 08/23/2023 1:53 PM [employer] Pulse 95 08/23/2023 1:53 PM [employer] Temperature 36.6 C (97.8 F) 08/20/2023 7:30 AM [employer] Respiratory Rate 18 08/20/2023 7:30 AM [employer] Oxygen Saturation 97% 08/23/2023 1:53 PM [employer] Inhaled Oxygen Concentration - - Weight 51.8 kg (114 lb 3.2 oz) 08/23/2023 1:53 P M [employer] Height 162.6 cm (5' 4) 08/23/2023 1:53 PM [employer] Body Mass Index 19.6 08/23/2023 1:53 PM [employer] Plan of Treatment Health Maintenance Due Date Last Done Comments Colon Cancer Screening Plan Due 1955 Hep C Screening (Preventive Services) 1955 Mammogram 1955 DTaP/Tdap/Td Vaccine (1 - Tdap) 1972 Cholesterol 1998 Zoster/Shingles Vaccine (1 of 2) 2003 Dexa 2018 COVID-19 Vaccine ( - season) 2024 08/10/2022, 06/21/2021, 11/15/2020, Additional history exists Medicare Annual Wellness Visit 09/26/2024 08/23/2023 Influenza Vaccine (Season Ended) 2025 08/10/2022, 08/10/2021, 07/25/2020, Additional history exists RSV Vaccine (1 - 1-dose 75+ series) 2028 Pneumococcal Vaccine 50+ Yrs Completed 07/25/2020, 07/12/2018 HepA Vaccine Aged Out No longer eligi ble based on patient's age to complete this topic HepB Vaccine Aged Out No longer eligi ble based on patient's age to complete this topic Hib Vaccine Aged Out No longer eligi ble based on patient's age to complete this topic IPV (Polio) Vaccine Aged Out No longe r eligible based on patient's age to complete this topic MCV4 Vaccine Aged Out No longer eligi ble based on patient's age to complete this topic Meningococcal B Vaccine Aged Out No l onger eligible based on patient's age to complete this topic Insurance HUMANA HUMANA Advance Directives * Full Code (Latest Code Status on File) Date Activated Date Inactivated Comments 08/17/2023 12:32 AM 08/20/2023 4:11 PM Care Teams Vehicle Check In Clerk Relationship Specialty Start Date End Date Robert Riley MD [address] [place] [address] PCP - General Family Practice 08/16/23
--- NOTE | 2025-03-03 14:27 | CRLHL7_ITS ---
For Patients: As a result of the Century Cures Act, medical imaging exams and procedure reports are released immediately into your electronic medical record. You may view this report before your referring provider. If you have questions, please contact your health care provider. Indication: 69-year-old female with abdominal pain. Technique: Routine enhanced abdomen and pelvis protocol with 40 mL Isovue 370 IV contrast. Comparison: April 26, 2022 CT abdomen and pelvis Findings : Lung bases: No findings for active disease. Liver: Normal in caliber and attenuation. No masses. Gallbladder and bile ducts: Cholecystectomy. No biliary dilation Pancreas: Unremarkable. Spleen: Normal in caliber. No masses. Adrenal glands: Unremarkable. No masses. Kidneys: No obstruction. No masses. No calculi. GI tract: Multiple dilated loops of dilated small bowel with air-fluid levels are present measuring up to 3 centimeters. Luis Armando terminal ileum postoperative changes appear stable in the right lower quadrant with a few loops of nondistended small bowel present. The colon is partially decompressed, more marked in the left hemicolon. A transition point is not identified. Appendix: No acute appendicitis. Lymph nodes: No lymphadenopathy. Aorta and vessels: No aneurysm or severe stenosis. Omentum/peritoneum/retroperitoneum: No masses or infiltration. No free air or significant free fluid. Pelvic organs: Unremarkable. Bones: Mild progression of grade 2 degenerate spondylolisthesis L4 on L5 Soft Tissues: No mass lesions or significant hernias. Impression: 1. High-grade distal small-bowel obstruction. Transition point not identified, likely due to adhesions. No bowel wall thickening about the luis armando terminal ileum in the left lower quadrant. 2. Mild progression of grade 2 degenerative spondylolisthesis L4 on L5. 3. No other significant interval changes. Please note that all CT scans at this facility use dose modulation, iterative reconstruction, and/or weight-based dosing when appropriate to reduce radiation dose to as low as reasonably achievable. Dictated by Lm Dumont MD @ 03/03/2025 4:59:56 PM (Electronically Signed)
--- NOTE | 2025-03-03 14:30 | ED.ABDPAIN ---
HPI - Abdominal Pain General Chief Complaint: Abdominal Pain Stated Complaint: Severe Stomach Pain/Vomiting Time Seen by Provider: 03/03/25 14:11 History of Present Illness HPI narrative: Patient is a 69-year-old woman with a history of COPD oxygen dependent who presents with diffuse abdominal pain. She has history of irritable bowel syndrome. She states that she began having severe pain yesterday which was associated with nausea and vomiting. No diarrhea. Her last substantial meal was yesterday. He has had no cough no sputum production. He states the pain is actually slightly better today and seems localized to the left lower quadrant. No blood in her stool. No other significant symptoms. Pain is 8/10 and dull. It does not radiate. Again no dysuria. Related Data Home Medications ?Medication ?Instructions ?Recorded ?Confirmed Home Oxygen 03/09/23 03/03/25 Previous Rx's ?Medication ?Instructions ?Recorded thiamine HCl (vitamin B1) 100 mg 100 mg PO QDAY #90 tabs 05/27/23 tablet hydroxyzine HCl 50 mg tablet 50 mg PO BID PRN anxiety #60 tabs 06/16/23 multivitamin with iron-mineral 1 tab PO QDAY #100 tabs 03/16/24 ipratropium 0.5 mg-albuterol 3 mg 3 ml inhalation QID PRN shortness 05/10/24 (2.5 mg base)/3 mL nebulization of breath #360 mL soln fluticasone 500 mcg-salmeterol 50 1 ea PO BID #60 ea 05/31/24 mcg/dose blistr powdr for inhalation albuterol sulfate 90 mcg/actuation 2 inh inhalation Q4-6H PRN 06/27/24 aerosol inhaler shortness of breath or wheezing #8.5 grams pantoprazole 40 mg tablet,delayed 40 mg PO DAILY #90 tabs 07/27/24 release fluoxetine 40 mg capsule 40 mg PO DAILY #90 caps 11/12/24 ergocalciferol (vitamin D2) 1,250 50,000 unit PO .Once Weekly #12 11/23/24 mcg (50,000 unit) capsule caps lorazepam 1 mg tablet 1 mg PO BID PRN anxiety #60 tabs 01/04/25 famotidine 20 mg tablet 20 mg PO BID PRN GERD #180 tabs 02/04/25 Allergies Allergy/AdvReac Type Severity Reaction Status Date / Time cefadroxil Allergy Severe anaphylacic Verified 03/03/25 14:12 shock bupropion Allergy Intermediate increased Verified 03/03/25 14:12 depression and shaking erythromycin base Allergy Intermediate GI Verified 03/03/25 14:12 intolerance Review of Systems Status of ROS Reports: 10 or more systems reviewed and unremarkable except as noted in History and below [facility] Medical History Small bowel obstruction (03/2022) ?K56.609 - Unspecified intestinal obstruction, unspecified as to partial versus complete obstruction (ICD-10) Positive colorectal cancer screening using DNA-based stool test ?R19.5 - Other fecal abnormalities (ICD-10) Anxiety ?F41.9 - Anxiety disorder, unspecified (ICD-10) Tremor ?R25.1 - Tremor, unspecified (ICD-10) Hyponatremia ?E87.1 - Hypo-osmolality and hyponatremia (ICD-10) Diastolic dysfunction, left ventricle ?I51.9 - Heart disease, unspecified (ICD-10) Ascending aortic aneurysm ?I71.2 - Thoracic aortic aneurysm, without rupture (ICD-10) Pulmonary hypertension ?I27.20 - Pulmonary hypertension, unspecified (ICD-10) Hypoxia ?R09.02 - Hypoxemia (ICD-10) Tobacco dependence ?F17.200 - Nicotine dependence, unspecified, uncomplicated (ICD-10) Polyp of ascending colon ?K63.5 - Polyp of colon (ICD-10) Moderate episode of recurrent major depressive disorder (01/26/09) ?F33.1 - Major depressive disorder, recurrent, moderate (ICD-10) Irritable bowel syndrome ?K58.9 - Irritable bowel syndrome without diarrhea (ICD-10) Hyperlipidemia ?E78.5 - Hyperlipidemia, unspecified (ICD-10) History of migraine ?Z86.69 - Personal history of other diseases of the nervous system and sense organs (ICD-10) Generalized anxiety disorder ?F41.1 - Generalized anxiety disorder (ICD-10) Gastroesophageal reflux disease ?K21.9 - Gastro-esophageal reflux disease without esophagitis (ICD-10) Fibromyalgia ?M79.7 - Fibromyalgia (ICD-10) Chronic obstructive pulmonary disease ?J44.9 - Chronic obstructive pulmonary disease, unspecified (ICD-10) Surgical History S/P right hemicolectomy ?Z90.49 - Acquired absence of other specified parts of digestive tract (ICD-10) H/O: section ?Z98.891 - History of uterine scar from previous surgery (ICD-10) History of umbilical hernia repair ?Z98.890 - Other specified postprocedural states (ICD-10) ?Z87.19 - Personal history of other diseases of the digestive system (ICD-10) S/P tubal ligation ?Z98.51 - Tubal ligation status (ICD-10) Status post laparoscopic cholecystectomy (03/07/18) ?Z90.49 - Acquired absence of other specified parts of digestive tract (ICD-10) Status post appendectomy (2004) ?Z90.49 - Acquired absence of other specified parts of digestive tract (ICD-10) Family History Father Type 2 diabetes mellitus COPD (chronic obstructive pulmonary disease) High blood pressure Brother Type 2 diabetes mellitus Mother Coronary artery disease Social History Narrative: Single, 3 kids, retired 1/2 ppd smoker Social EtOH retired What is your current living situation?: I presently have a place to live Problems where you live: no known problems In the past 12 months, utilities in danger of being shut off: no In past 12 months, lack of transportation kept you from medical appts, meetings, work, or getting things needed for daily living: no In the past 12 mos, have been you worried that your food would run out before you had money to buy more?: never true In the past 12 mos, the food you bought just didn't last and you didn't have money to buy more?: never true Smoking Status: Former smoker What tobacco products do you use: cigarettes Smoking quit date/years: <= 15 years ago Do you use any of these nicotine containing products: None Second hand tobacco smoke exposure: No How often do you have a drink containing alcohol: monthly or less How many standard drinks containing alcohol do you have on a typical day: 1 or 2 AUDIT-C Alcohol total score: 1 Non-prescribed substance use: denies use Caffeine: Yes How often does anyone, including family, friends and others, physically hurt you: never How often does anyone, including family, friends and others, insult or talk down to you: never How often does anyone, including family, friends and others, threaten you with harm: never How often does anyone, including family, friends and others, scream or curse at you: never service: No Exam Narrative: Exam Narrative: EXAM GENERAL: Patient appears cachectic and is breathing oxygen via nasal cannula. EYES: No scleral icterus. ENT: Tympanic membranes and oropharynx normal. THYROID: no thyroid nodules or thyromegaly. LYMPH: No supraclavicular or cervical lymphadenopathy. SKIN: Visible skin seen during exam normal or with benign process only. EXT: No dependent lower extremity pedal edema. HEART: Regular rate and rhythm with no murmurs, rubs, or gallops. LUNGS: Rhonchi bilaterally with scattered expiratory wheezes. ABD: Scaphoid. Soft. Abdominal wound well healed in the midline. Positive bowel sounds throughout. PSYCH: Good eye contact, speech is not pressured. Const: Vital Signs, click to edit/add: Vital Signs - 24 hr 03/03/25 14:17 03/03/25 15:29 03/03/25 15:30 Temperature 98.5 F Pulse Rate 107 H 105 H Pulse Rate [Pulse Oximeter] 120 H Respiratory Rate 24 Blood Pressure [Ri ght Upper Arm] 112/70 Pulse Oximetry 92 98 97 Oxygen Delivery Me thod Nasal Cannula Oxygen Flow Rate 2 03/03/25 15:45 03/03/25 16:12 03/03/25 16:15 Temperature Pulse Rate 91 103 H 103 H Pulse Rate [Pulse Oximeter] Respiratory Rate Blood Pressure [Ri ght Upper Arm] Pulse Oximetry 97 99 98 Oxygen Delivery Me thod Oxygen Flow Rate Course Course ED Course: CBC comprehensive metabolic panel lipase lactate ABG CT abdomen pelvis pending. Vital Signs Vital signs: Initial Vital Signs Temperature 98.5 F 03/03/25 14:17 Temperature Source Temporal Artery Scan 03/03/25 14:17 Pulse Rate 120 H 03/03/25 14:17 Respiratory Rate 24 03/03/25 14:17 Blood Pressure 112/70 03/03/25 14:17 Blood Pressure Mean 84 03/03/25 14:17 Pulse Oximetry 92 03/03/25 14:17 Oxygen Delivery Method Nasal Cannula 03/03/25 14:17 Oxygen Flow Rate 2 03/03/25 14:17 Vital Signs Temperature 98.5 F 03/03/25 14:17 Pulse Rate 120 H 03/03/25 14:17 Respiratory Rate 03/03/25 14:17 Blood Pressure 112/70 03/03/25 14:17 Pulse Oximetry 92 03/03/25 14:17 Oxygen Delivery Method Nasal Cannula 03/03/25 14:17 Oxygen Flow Rate 2 03/03/25 14:17 Temperature 98.5 F 03/03/25 14:17 Pulse Rate 103 H 03/03/25 16:15 Respiratory Rate 03/03/25 14:17 Blood Pressure 112/70 03/03/25 14:17 Pulse Oximetry 98 03/03/25 16:15 Oxygen Delivery Method Nasal Cannula 03/03/25 14:17 Oxygen Flow Rate 2 03/03/25 14:17 Medications Administered Medications: Generic Name Dose Route Start Last Admin Trade Name Freq PRN Reason Stop Dose Admin Sodium Chloride 500 mls @ 500 mls/hr 03/03/25 17:10 03/03/25 17:25 0.9 % Sodium Chloride 500 Ml IV 03/03/25 18:09 500 mls/hr .Q1H ONE Administration Discontinued Medications Generic Name Dose Route Start Last Admin Trade Name Freq PRN Reason Stop Dose Admin Hydromorphone HCl 0.5 mg 03/03/25 17:10 03/03/25 17:28 Hydromorphone 0.5 Mg/0.5 Ml Inj IVP 03/03/25 17:11 0.5 mg ONCE ONE Administration Ondansetron HCl 4 mg 03/03/25 17:10 03/03/25 17:26 Ondansetron 2 Mg/Ml Inj IVP 03/03/25 17:11 4 mg ONCE ONE Administration MDM - Abdominal Pain MDM Narrative Medical decision making narrative: Patient is a 69-year-old woman who is status post right hemicolectomy, appendectomy, hernia repair, cholecystectomy x3 who presents with a small-bowel obstruction. I did review her case with General surgery as well as a hospitalist. NG tube is in place. IV hydration is begun Zofran given Dilaudid given. Patient accepted to the hospital as admission. Lab Data Labs: Lab Results 03/03/25 03/03/25 03/03/25 Range/Units 14:58 15:05 Unknown WBC 15.72 H (4.50-11.00) K/uL RBC 4.02 (4.00-5.20) m/uL Hgb 12.3 (12.0-16.0) gm/dL Hct 37.7 (33.0-51.0) % MCV 94 (80-100) fL MCH 31 (26-34) pg MCHC 33 (32-36) gm/dL RDW Coeff of Riri 12.1 (11.5-15.5) % Plt Count 300 (140-440) K/uL Neut % (Auto) 73.6 H (42.0-72.0) % Lymph % (Auto) 19.5 L (20-44) % [place] % (Auto) 5.3 (0.0-11.0) % Eos % (Auto) 0.0 (0.0-7.0) % Baso % (Auto) 0.1 (0.0-3.0) % Neut # (Auto) 11.60 H (1.7-7.0) K/uL Lymph # (Auto) 3.10 H (0.90-2.90) K/uL [place] # (Auto) 0.80 (0.00-0.90) K/UL Eos # (Auto) 0.00 (0.00-0.50) K/uL Baso # (Auto) 0.00 (0.00-0.30) K/uL Abs Immat Gran (auto) 0.20 (0.00-0.30) K/uL Imm/Tot Granulo (auto) 1.5 % ABG pH 7.41 (7.35-7.45) ABG pCO2 59 H (35-45) mmHG ABG pO2 79.0 L (80-105) mmHG ABG HCO3 37 H (21-28) mmol/L ABG Total CO2 35 H (21-30) mmol/l ABG O2 Saturation 92 (92-100) % ABG Base Excess 3.5 H (-3.0-3.0) mmol/L Sodium 136 (135-149) mmol/L Potassium 4.2 (3.6-5.1) mmol/L Chloride 93 L (96-114) mmol/L Carbon Dioxide 36 H (20-32) mmol/L Anion Gap 7 (7-15) mEq/L BUN 22 (7-30) mg/dL Creatinine 0.8 (0.5-1.5) mg/dL Estimated GFR 79 ml/min Glucose 144 H (60-115) mg/dL Lactate 1.2 (0.5-1.9) mmol/L Calcium 11.7 H (8.4-10.6) mg/dL Total Bilirubin 0.8 (0.1-1.5) mg/dL AST 33 (12-35) U/L ALT 22 (4-35) U/L Alkaline Phosphatase 62 (40-150) U/L Total Protein 7.9 (6.0-8.3) g/dL Albumin 4.7 (3.3-5.0) g/dL Lipase 99 (23-300) U/L Urine Color Yellow (Yellow) Urine Appearance Clear (Clear) Urine pH 7.0 (5.0-8.5) Ur Specific [place] 1.010 (1.000-1.030) Urine Protein Trace A (Negative) Urine Glucose (UA) Negative (Negative) Urine Ketones Negative (Negative) Urine Blood Trace-intact A (Negative) Urine Nitrite Negative (Negative) Urine Bilirubin Negative (Negative) Urine Urobilinogen 1.0 (0.2-1.0) Ur Leukocyte Esterase Negative (Negative) Urine RBC 0-2 (0-2) Urine WBC 0-2 (0-5) Ur Squamous Epith Cells None (None-Few) Urine Bacteria None (None) Discharge Plan Discharge Clinical Impression: Complete obstruction of small intestine Patient Disposition: Admitted As Observation Condition: Stable Activity Level: Other Discharge Diet: Other
[2025-03-03 14:59] LABS: ABG PCO2 59 mmHG (35-45); HCO3 ABG 37 mmol/L (21-28); Lactate* 1.2 mmol/L (0.5-1.9); pH ABG 7.41 (7.35-7.45)
[2025-03-03 15:01] LABS: Base Excess ABG 3.5 mmol/L (-3.0-3.0); Oxygen Saturation ABG 92 % (92-100); TCO2 ABG 35 mmol/l (21-30)
[2025-03-03 15:12] LABS: Basophils Percent Auto 0.1 % (0.0-3.0); Hematocrit 37.7 % (33.0-51.0); Hemoglobin* 12.3 gm/dL (12.0-16.0); Immature Granulocytes Pct Auto 1.5 %; Lymphocytes Percent Auto 19.5 % (20-44); Mean Corpuscular HGB Conc 33 gm/dL (32-36); Mean Corpuscular Hemoglobin 31 pg (26-34); Mean Corpuscular Volume 94 fL (80-100); Monocytes Percent Auto 5.3 % (0.0-11.0); Neutrophils Percent Auto 73.6 % (42.0-72.0); Platelet Count* 300 K/uL (140-440); RDW Coefficient of Variation % 12.1 % (11.5-15.5); Red Blood Count 4.02 m/uL (4.00-5.20); White Blood Count* 15.72 K/uL (4.50-11.00)
[2025-03-03 15:17] LABS: Slide Review Reflex No
[2025-03-03 15:35] LABS: Albumin* 4.7 g/dL (3.3-5.0); Chloride* 93 mmol/L (96-114); Potassium* 4.2 mmol/L (3.6-5.1); Sodium* 136 mmol/L (135-149)
[2025-03-03 15:38] LABS: Alanine Aminotransferase* 22 U/L (4-35); Alkaline Phosphatase* 62 U/L (40-150); Aspartate Amino Transferase* 33 U/L (12-35); Bilirubin Total* 0.8 mg/dL (0.1-1.5); Blood Urea Nitrogen* 22 mg/dL (7-30); Carbon Dioxide* 36 mmol/L (20-32); Creatinine* 0.8 mg/dL (0.5-1.5); Estimated Glomerular Filt Rate 79 ml/min; Lipase* 99 U/L (23-300); Total Protein* 7.9 g/dL (6.0-8.3)
[2025-03-03 15:39] LABS: Anion Gap 7 mEq/L (7-15); Calcium* 11.7 mg/dL (8.4-10.6); Glucose* 144 mg/dL (60-115)
[2025-03-03 17:06] LABS: Appearance Urine Clear (Clear); Bilirubin Urine Negative (Negative); Blood Urine Trace-intact (Negative); Color Urine Yellow (Yellow); Glucose Urine Negative (Negative); Ketones Urine Negative (Negative); Leukocyte Esterase Urine Negative (Negative); Nitrite Urine Negative (Negative); Protein Urine Trace (Negative)
[2025-03-03 17:11] LABS: RBC Urine 0-2 (0-2); WBC Urine 0-2 (0-5)
[2025-03-03] MEDS: 0.9 % SODIUM CHLORIDE 500 ML 500 ML IV (17:25)
[2025-03-03] MEDS: ONDANSETRON 2 MG/ML inj 4 MG IVP (17:26)
[2025-03-03] MEDS: HYDROmorphone 0.5 mg/0.5 ml inj IVP ×3 (17:28→21:48)
[2025-03-03] MEDS: LORazepam 2 MG/ML inj 0.5 MG IVP (17:54)
--- NOTE | 2025-03-03 18:11 | CRLHL7_ITS ---
For Patients: As a result of the Century Cures Act, medical imaging exams and procedure reports are released immediately into your electronic medical record. You may view this report before your referring provider. If you have questions, please contact your health care provider. INDICATION: NGT placement. COMPARISON: 04/29/2022. Technique single-view chest. FINDINGS: Enteric tube in place with tip below the diaphragm. Side hole is not visible. Hyperinflation of both lungs. No pleural effusions. No pneumothorax. Normal cardiomediastinal silhouette. Dictated by Jonathan Ann MD @ 03/03/2025 6:49:53 PM (Electronically Signed)
[2025-03-03] MEDS: LACTATED RINGERS 1000 ML 1,000 ML 100 ML IV (19:15)
[2025-03-03] MEDS: ENOXAPARIN 30 MG/0.3ML INJ SUBCUT (21:41)
--- NOTE | 2025-03-03 21:50 | PM.IMHP1 ---
Assessment and Plan Assessment and plan (1) Small bowel obstruction: Problem comment: - 03/2022 s/p laparoscopic right hemicolectomy for endoscopically unresectable cecal polyps - 04/2022 Partial SBO, managed conservatively - 03/03/25 CT abd/pelvis: High grade SBO without transition point, possibly due to adhesions. Dr. Doll aware. NGT in place. Admit for SBO. Continue NGT to LIS. I have started LR @ 100cc/hr. This is twice her maintenance rate because she appears hypovolemic clinically. 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 Grade 1 pattern of LV diastolic filling. Status: Chronic (6) Generalized anxiety disorder: Status: Chronic (7) Gastroesophageal reflux disease: Problem comment: - Use IV PPI while on NGT LIS. Status: Chronic (8) Tobacco dependence: Problem comment: - start nicotine patch Status: Chronic (9) Protein-calorie malnutrition, severe: Problem comment: - Also diagnosed in 2022 at [facility] - suspect multifactorial: severe, chronic COPD, poor oral intake - Will need to consider PPN or TPN if she will be NPO for many days. Nutrition consult and supplements when able to tolerate PO. Status: Acute Hospitalist- H&P: HPI History of Present Illness Time Seen by Provider: 18:15 Date Seen: 03/03/25 Chief complaint: Severe Stomach Pain/Vomiting Narrative: Bianca Wang is a 69 year old female who has oxygen dependent COPD and h/o SBO and irritable bowel syndrome who came in through the ER for abdominal pain. The patient is very [place] and sleepy from pain medications, so her daughter, Jenni, who is with her, gives the history. Jenni tells me that Bianca had masses on her colonoscopy a few years ago and had to have part of her colon removed. A week later, she developed a SBO for which she was in our hospital for a while. Since then, Jenni says, Bianca has had intermittent nausea and problems eating. Bianca doesn't like going to doctors and has been worried that she will have to have surgery again, which she is scared will kill her, so she has not gone to a doctor for these symptoms. Since November or December, Jenni has noticed a big decline. Bianca doesn't go out much anymore and gave up driving. She is eating very little, complains of nausea, and is losing a lot of weight and muscle mass. She has intermittent diarrhea and constipation. Yesterday, Bianca started having severe diffuse abdominal pain which has been constant and is associated with nausea and vomiting. She hasn't been able to eat or drink anything since this started. She denies fever or chills, CP, worsening SOB, melena or hematochezia. Review of Systems Status of ROS: Reports: 10 or more systems reviewed and unremarkable except as noted in History and below Medical Decision Making Medical Decision Making Code Status: She remains uncertain and wants time to think about this. Has patient completed a Health Care Directive: No During This Stay, Who Would You Like To Make Decisions For You In The Event You Are Unable To Make Them For Yourself?: We also discussed this, and Bianca was uncertain about this as well. Her daughter, Jenni, with whom she lives, was in the room at the time of the discussion. [facility] Medical History (Updated 03/03/25 @ 23:06 by Coleen Bowles MD) Small bowel obstruction (03/2022) ?K56.609 - Unspecified intestinal obstruction, unspecified as to partial versus complete obstruction (ICD-10) Positive colorectal cancer screening using DNA-based stool test ?R19.5 - Other fecal abnormalities (ICD-10) Anxiety ?F41.9 - Anxiety disorder, unspecified (ICD-10) Tremor ?R25.1 - Tremor, unspecified (ICD-10) Hyponatremia ?E87.1 - Hypo-osmolality and hyponatremia (ICD-10) Diastolic dysfunction, left ventricle ?I51.9 - Heart disease, unspecified (ICD-10) Ascending aortic aneurysm ?I71.2 - Thoracic aortic aneurysm, without rupture (ICD-10) Pulmonary hypertension ?I27.20 - Pulmonary hypertension, unspecified (ICD-10) Hypoxia ?R09.02 - Hypoxemia (ICD-10) Tobacco dependence ?F17.200 - Nicotine dependence, unspecified, uncomplicated (ICD-10) Polyp of ascending colon ?K63.5 - Polyp of colon (ICD-10) Moderate episode of recurrent major depressive disorder (01/26/09) ?F33.1 - Major depressive disorder, recurrent, moderate (ICD-10) Irritable bowel syndrome ?K58.9 - Irritable bowel syndrome without diarrhea (ICD-10) Hyperlipidemia ?E78.5 - Hyperlipidemia, unspecified (ICD-10) History of migraine ?Z86.69 - Personal history of other diseases of the nervous system and sense organs (ICD-10) Generalized anxiety disorder ?F41.1 - Generalized anxiety disorder (ICD-10) Gastroesophageal reflux disease ?K21.9 - Gastro-esophageal reflux disease without esophagitis (ICD-10) Fibromyalgia ?M79.7 - Fibromyalgia (ICD-10) Chronic obstructive pulmonary disease ?J44.9 - Chronic obstructive pulmonary disease, unspecified (ICD-10) Surgical History S/P right hemicolectomy ?Z90.49 - Acquired absence of other specified parts of digestive tract (ICD-10) H/O: section ?Z98.891 - History of uterine scar from previous surgery (ICD-10) History of umbilical hernia repair ?Z98.890 - Other specified postprocedural states (ICD-10) ?Z87.19 - Personal history of other diseases of the digestive system (ICD-10) S/P tubal ligation ?Z98.51 - Tubal ligation status (ICD-10) Status post laparoscopic cholecystectomy (03/07/18) ?Z90.49 - Acquired absence of other specified parts of digestive tract (ICD-10) Status post appendectomy (2004) ?Z90.49 - Acquired absence of other specified parts of digestive tract (ICD-10) Family History Father Type 2 diabetes mellitus COPD (chronic obstructive pulmonary disease) High blood pressure Brother Type 2 diabetes mellitus Mother Coronary artery disease Social History (Updated 03/03/25 @ 22:27 by Coleen Bowles MD) Narrative: Single, 3 kids, retired, stopped driving in November/December. Lives with her daughter, Beth. [place] does not allow her to smoke in the home. According to Jenni, Bianca will sometimes smoke outside with oxygen still on. Jenni thinks she is smoking more than 1/2 ppd. Social EtOH retired What is your current living situation?: I presently have a place to live Problems where you live: no known problems In the past 12 months, utilities in danger of being shut off: no In past 12 months, lack of transportation kept you from medical appts, meetings, work, or getting things needed for daily living: no In the past 12 mos, have been you worried that your food would run out before you had money to buy more?: never true In the past 12 mos, the food you bought just didn't last and you didn't have money to buy more?: never true Smoking Status: Former smoker What tobacco products do you use: cigarettes Smoking quit date/years: <= 15 years ago Do you use any of these nicotine containing products: None Second hand tobacco smoke exposure: No How often do you have a drink containing alcohol: monthly or less How many standard drinks containing alcohol do you have on a typical day: 1 or 2 AUDIT-C Alcohol total score: 1 Non-prescribed substance use: denies use Caffeine: Yes How often does anyone, including family, friends and others, physically hurt you: never How often does anyone, including family, friends and others, insult or talk down to you: never How often does anyone, including family, friends and others, threaten you with harm: never How often does anyone, including family, friends and others, scream or curse at you: never service: No Meds Home Medications and Allergies Home Medications ?Medication ?Instructions ?Recorded ?Confirmed ?Type Home Oxygen 03/09/23 03/03/25 History thiamine HCl (vitamin B1) 100 mg 100 mg PO QDAY #90 tabs 05/27/23 03/03/25 Rx tablet hydroxyzine HCl 50 mg tablet 50 mg PO BID PRN anxiety #60 tabs 06/16/23 03/03/25 Rx multivitamin with iron-mineral 1 tab PO QDAY #100 tabs 03/16/24 03/03/25 Rx ipratropium 0.5 mg-albuterol 3 mg 3 ml inhalation QID PRN shortness 05/10/24 03/03/25 Rx (2.5 mg base)/3 mL nebulization of breath #360 mL soln fluticasone 500 mcg-salmeterol 50 1 ea PO BID #60 ea 05/31/24 03/03/25 Rx mcg/dose blistr powdr for inhalation albuterol sulfate 90 mcg/actuation 2 inh inhalation Q4-6H PRN 06/27/24 03/03/25 Rx aerosol inhaler shortness of breath or wheezing #8.5 grams pantoprazole 40 mg tablet,delayed 40 mg PO DAILY #90 tabs 07/27/24 03/03/25 Rx release fluoxetine 40 mg capsule 40 mg PO DAILY #90 caps 11/12/24 03/03/25 Rx ergocalciferol (vitamin D2) 1,250 50,000 unit PO .Once Weekly #12 11/23/24 03/03/25 Rx mcg (50,000 unit) capsule caps lorazepam 1 mg tablet 1 mg PO BID PRN anxiety #60 tabs 01/04/25 03/03/25 Rx famotidine 20 mg tablet 20 mg PO BID PRN GERD #180 tabs 02/04/25 03/03/25 Rx Allergies Allergy/AdvReac Type Severity Reaction Status Date / Time cefadroxil Allergy Severe anaphylacic Verified 03/03/25 14:12 shock bupropion Allergy Intermediate increased Verified 03/03/25 14:12 depression and shaking erythromycin base Allergy Intermediate GI Verified 03/03/25 14:12 intolerance Exam Narrative: Exam Narrative: General: No acute distress. Sleepy, arousable, oriented x3, very hard of hearing. Frail, cachectic. HEENT: Normocephalic atraumatic, pupils equally round and reactive to light and accommodation. Oropharynx clear. Mucous membranes are dry. No cervical lymphadenopathy, thyromegaly or carotid bruits. No JVD. Cardiovascular: Regular rate and rhythm. No murmurs, gallops, or rubs. Chest: No increased work of breathing. Clear to auscultation bilaterally. No crackles or wheezes. Abdomen: Bowel sounds absent. Thin abdomen, nondistended, diffusely tender, no rebound tenderness or guarding. No hepatosplenomegaly or masses. Extremities: Significant muscle wasting in all extremities. No edema, no cyanosis or clubbing. Skin: No jaundice, no pallor, no rashes on visible skin. Const: Vital Signs, click to edit/add: Vital Signs - 24 hr 03/03/25 14:17 03/03/25 15:29 03/03/25 15:30 Temperature 98.5 F Pulse Rate 107 H 105 H Pulse Rate [Pulse Oximeter] 120 H Respiratory Rate 24 Blood Pressure [Ri ght Upper Arm] 112/70 Pulse Oximetry 92 98 97 Oxygen Delivery Me thod Nasal Cannula Oxygen Flow Rate 2 03/03/25 15:45 03/03/25 16:12 03/03/25 16:15 Temperature Pulse Rate 91 103 H 103 H Pulse Rate [Pulse Oximeter] Respiratory Rate Blood Pressure [Ri ght Upper Arm] Pulse Oximetry 97 99 98 Oxygen Delivery Me thod Nasal Cannula Nasal Cannula Nasal Cannula Oxygen Flow Rate 2 2 2 03/03/25 16:30 03/03/25 16:45 03/03/25 17:03 Temperature Pulse Rate 103 H 96 111 H Pulse Rate [Pulse Oximeter] Respiratory Rate Blood Pressure [Ri ght Upper Arm] Pulse Oximetry 97 99 93 Oxygen Delivery Me thod Nasal Cannula Nasal Cannula Nasal Cannula Oxygen Flow Rate 2 2 2 03/03/25 17:15 03/03/25 17:30 Temperature Pulse Rate 120 H 117 H Pulse Rate [Pulse Oximeter] Respiratory Rate Blood Pressure [Ri ght Upper Arm] Pulse Oximetry 97 95 Oxygen Delivery Me thod Nasal Cannula Nasal Cannula Oxygen Flow Rate 2 2 Hospitalist - H&P: Result Labs Labs: Short CBC 03/03/25 Range/Units 15:05 WBC 15.72 H (4.50-11.00) K/uL Hgb 12.3 (12.0-16.0) gm/dL Hct 37.7 (33.0-51.0) % Plt Count 300 (140-440) K/uL BMP 03/03/25 15:05 Sodium 136 Potassium 4.2 Chloride 93 L Carbon Dioxide 36 H BUN 22 Creatinine 0.8 Glucose 144 H Calcium 11.7 H Liver Function 03/03/25 Range/Units 15:05 Total Bilirubin 0.8 (0.1-1.5) mg/dL AST 33 (12-35) U/L ALT 22 (4-35) U/L Alkaline Phosphatase 62 (40-150) U/L Albumin 4.7 (3.3-5.0) g/dL Urine 03/03/25 Range/Units Unknown Urine Color Yellow (Yellow) Urine Appearance Clear (Clear) Urine pH 7.0 (5.0-8.5) Ur Specific [place] 1.010 (1.000-1.030) Urine Protein Trace A (Negative) Urine Glucose (UA) Negative (Negative) Ordering Physician: Sebastian Almazan M.D. Date of Service: 03/03/25 Procedure(s): CT abdomen pelvis w con Accession Number(s): [id number] cc: Robert Riley M.D.; Sebastian Almazan M.D.~ For Patients: As a result of the Century Cures Act, medical imaging exams and procedure reports are released immediately into your electronic medical record. You may view this report before your referring provider. If you have questions, please contact your health care provider. Indication: 69-year-old female with abdominal pain. Technique: Routine enhanced abdomen and pelvis protocol with 40 mL Isovue 370 IV contrast. Comparison: April 26, 2022 CT abdomen and pelvis Findings : Lung bases: No findings for active disease. Liver: Normal in caliber and attenuation. No masses. Gallbladder and bile ducts: Cholecystectomy. No biliary dilation Pancreas: Unremarkable. Spleen: Normal in caliber. No masses. Adrenal glands: Unremarkable. No masses. Kidneys: No obstruction. No masses. No calculi. GI tract: Multiple dilated loops of dilated small bowel with air-fluid levels are present measuring up to 3 centimeters. Luis Armando terminal ileum postoperative changes appear stable in the right lower quadrant with a few loops of nondistended small bowel present. The colon is partially decompressed, more marked in the left hemicolon. A transition point is not identified. Appendix: No acute appendicitis. Lymph nodes: No lymphadenopathy. Aorta and vessels: No aneurysm or severe stenosis. Omentum/peritoneum/retroperitoneum: No masses or infiltration. No free air or significant free fluid. Pelvic organs: Unremarkable. Bones: Mild progression of grade 2 degenerate spondylolisthesis L4 on L5 Soft Tissues: No mass lesions or significant hernias. Impression: 1. High-grade distal small-bowel obstruction. Transition point not identified, likely due to adhesions. No bowel wall thickening about the luis armando terminal ileum in the left lower quadrant. 2. Mild progression of grade 2 degenerative spondylolisthesis L4 on L5. 3. No other significant interval changes. Please note that all CT scans at this facility use dose modulation, iterative reconstruction, and/or weight-based dosing when appropriate to reduce radiation dose to as low as reasonably achievable. Dictated by Lm Dumont MD @ 03/03/2025 4:59:56 PM (Electronically Signed) Ordering Physician: Chester Vallecillo M.D. Date of Service: 03/03/25 Procedure(s): XR chest 1V portable Accession Number(s): [id number] cc: Robert Riley M.D.; Chester Vallecillo M.D.~ For Patients: As a result of the Cures Act, medical imaging exams and procedure reports are released immediately into your electronic medical record. You may view this report before your referring provider. If you have questions, please contact your health care provider. INDICATION: NGT placement. COMPARISON: 04/29/2022. Technique single-view chest. FINDINGS: Enteric tube in place with tip below the diaphragm. Side hole is not visible. Hyperinflation of both lungs. No pleural effusions. No pneumothorax. Normal cardiomediastinal silhouette. Dictated by Jonathan Ann MD @ 03/03/2025 6:49:53 PM (Electronically Signed)
[2025-03-03] MEDS: ALBUTEROL INHALER 2 PUFF IH (22:33)
[2025-03-03] MEDS: NICOTINE 14 mg PATCH 1 PATCH TRANSDERMA (22:33)
--- NOTE | 2025-03-03 23:39 | PC.NURSE ---
Patient admitted from ED with SBO. Patient has NG, 65 at the Nare, set o LIS collecting green bile, 300 mls out from [id number]. Daughters present at admission and currently at bedside. Patient is always on 2 liters O2 via NC at baseline. Patient is managing pain with scheduled and prn medications. 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 She currently has LR @ 100 in PIV and is NPO.
[2025-03-04] MEDS: LORazepam 1 MG TABLET PO ×3 (00:53→21:08)
[2025-03-04] MEDS: HYDROmorphone 0.5 mg/0.5 ml inj IVP ×6 (00:58→22:08)
[2025-03-04] MEDS: ONDANSETRON 2 MG/ML inj 4 MG IVP ×4 (01:02→22:08)
[2025-03-04] MEDS: SODIUM CHLORIDE 0.9 % (FLUSH) 10 ML SYRINGE 5 ML IVF ×3 (02:12→22:10)
[2025-03-04] MEDS: PANTOPRAZOLE SODIUM 40 MG INJ IVP (02:12)
[2025-03-04 03:00] VITALS: BP 95/63; PULSE 82; RESP 20; TEMP 36.4; O2SAT 95
[2025-03-04] MEDS: LACTATED RINGERS 1000 ML 1,000 ML 100 ML IV (05:19)
[2025-03-04 06:00] LABS: Basophils Percent Auto 0.1 % (0.0-3.0); Eosinophils Percent Auto 0.2 % (0.0-7.0); Hemoglobin* 10.8 gm/dL (12.0-16.0); Immature Granulocytes Pct Auto 0.3 %; Lymphocytes Percent Auto 24.5 % (20-44); Mean Corpuscular HGB Conc 32 gm/dL (32-36); Mean Corpuscular Hemoglobin 31 pg (26-34); Mean Corpuscular Volume 97 fL (80-100); Monocytes Percent Auto 6.9 % (0.0-11.0); Platelet Count* 255 K/uL (140-440); RDW Coefficient of Variation % 12.4 % (11.5-15.5); Red Blood Count 3.52 m/uL (4.00-5.20); White Blood Count* 11.75 K/uL (4.50-11.00)
[2025-03-04 06:03] LABS: Slide Review Reflex No
[2025-03-04 06:19] LABS: Chloride* 98 mmol/L (96-114); Potassium* 4.3 mmol/L (3.6-5.1); Sodium* 137 mmol/L (135-149)
[2025-03-04 06:22] LABS: Blood Urea Nitrogen* 24 mg/dL (7-30); Creatinine* 0.8 mg/dL (0.5-1.5); Estimated Glomerular Filt Rate 79 ml/min
[2025-03-04 06:23] LABS: Anion Gap 2 mEq/L (7-15); Carbon Dioxide* 37 mmol/L (20-32); Glucose* 121 mg/dL (60-115)
--- NOTE | 2025-03-04 06:43 | PC.NURSE ---
Shift note -: Pt is alert and oriented x4, cooperative, deaf in left ear. Pt on 2L O2 PNC with oxygen saturation >90%. VSS. Patient's daughter spent the night. NG to 65 in the left nare, patent, 100cc green output this shift. Pt had one bout of nausea, no emesis, relief reported from PRN Zofran. Bowel sounds very hypoactive, pt denies passing flatus, abdomen is soft and tender. Pt up SBA to the BR x3. Pt refused TEDS and SCD's, education provided on risks and benefits, pt stated I will try them in the morning when I am more awake, I want to sleep. PRN Dilaudid given for pain with pt reporting good relief. Nicotene patch to left upper arm.
[2025-03-04 07:00] VITALS: BP 91/63; PULSE 90; RESP 18; RESP 20; TEMP 36.4; O2SAT 92
--- NOTE | 2025-03-04 07:37 | PM.GSCN ---
History of Present Illness Consult details Date Seen: 03/04/25 Consult date: 03/04/25 Narrative: The patient is a 69-year-old female who was admitted to the hospital yesterday with a bowel obstruction. She states that since she underwent a right hemicolectomy in 2021 for an unresectable polyp, she has had almost daily abdominal pain. She states that ?my stomach is not good. ? 2 days ago she developed abdominal pain which was worse than prior. The discomfort was located all over her abdomen. It kept increasing in intensity. She lives in [facility] so she came down to see her daughter in [place]. There was a graduation to attend. They went to the graduation and had lunch. She states that she felt worse after lunch on Tuesday. She went to bed around 9:00 p.m. and then had sharp pain the night. Yesterday, Tuesday, she vomited x2. She then had a large amount of belching and heartburn. She had a bowel movement last on Tuesday. She states that she may have passed gas yesterday but is not passing gas today. Today her abdominal pain is better. Prior to today, getting up and moving made the pain worse. Pain medication helps. She was hospitalized in 2021 for a small-bowel obstruction two weeks status post laparoscopic right hemicolectomy for an unresectable polyp. This resolved with conservative management. She has had approximately 400 mL out of her NG since placement. [facility] Medical History (Updated 03/03/25 @ 23:06 by Coleen Bowles MD) Small bowel obstruction (03/2022) ?K56.609 - Unspecified intestinal obstruction, unspecified as to partial versus complete obstruction (ICD-10) Positive colorectal cancer screening using DNA-based stool test ?R19.5 - Other fecal abnormalities (ICD-10) Anxiety ?F41.9 - Anxiety disorder, unspecified (ICD-10) Tremor ?R25.1 - Tremor, unspecified (ICD-10) Hyponatremia ?E87.1 - Hypo-osmolality and hyponatremia (ICD-10) Diastolic dysfunction, left ventricle ?I51.9 - Heart disease, unspecified (ICD-10) Ascending aortic aneurysm ?I71.2 - Thoracic aortic aneurysm, without rupture (ICD-10) Pulmonary hypertension ?I27.20 - Pulmonary hypertension, unspecified (ICD-10) Hypoxia ?R09.02 - Hypoxemia (ICD-10) Tobacco dependence ?F17.200 - Nicotine dependence, unspecified, uncomplicated (ICD-10) Polyp of ascending colon ?K63.5 - Polyp of colon (ICD-10) Moderate episode of recurrent major depressive disorder (01/26/09) ?F33.1 - Major depressive disorder, recurrent, moderate (ICD-10) Irritable bowel syndrome ?K58.9 - Irritable bowel syndrome without diarrhea (ICD-10) Hyperlipidemia ?E78.5 - Hyperlipidemia, unspecified (ICD-10) History of migraine ?Z86.69 - Personal history of other diseases of the nervous system and sense organs (ICD-10) Generalized anxiety disorder ?F41.1 - Generalized anxiety disorder (ICD-10) Gastroesophageal reflux disease ?K21.9 - Gastro-esophageal reflux disease without esophagitis (ICD-10) Fibromyalgia ?M79.7 - Fibromyalgia (ICD-10) Chronic obstructive pulmonary disease ?J44.9 - Chronic obstructive pulmonary disease, unspecified (ICD-10) Surgical History S/P right hemicolectomy ?Z90.49 - Acquired absence of other specified parts of digestive tract (ICD-10) H/O: section ?Z98.891 - History of uterine scar from previous surgery (ICD-10) History of umbilical hernia repair ?Z98.890 - Other specified postprocedural states (ICD-10) ?Z87.19 - Personal history of other diseases of the digestive system (ICD-10) S/P tubal ligation ?Z98.51 - Tubal ligation status (ICD-10) Status post laparoscopic cholecystectomy (03/07/18) ?Z90.49 - Acquired absence of other specified parts of digestive tract (ICD-10) Status post appendectomy (2004) ?Z90.49 - Acquired absence of other specified parts of digestive tract (ICD-10) Family History Father Type 2 diabetes mellitus COPD (chronic obstructive pulmonary disease) High blood pressure Brother Type 2 diabetes mellitus Mother Coronary artery disease Social History (Updated 03/03/25 @ 22:27 by Coleen Bowles MD) Narrative: Single, 3 kids, retired, stopped driving in . Lives with her daughter, Jenni. Jenni does not allow her to smoke in the home. According to Jenni, Bianca will sometimes smoke outside with oxygen still on. Jenni thinks she is smoking more than 1/2 ppd. Social EtOH retired What is your current living situation?: I presently have a place to live Problems where you live: no known problems Problems where you live details: no issues In the past 12 months, utilities in danger of being shut off: no In past 12 months, lack of transportation kept you from medical appts, meetings, work, or getting things needed for daily living: no In the past 12 mos, have been you worried that your food would run out before you had money to buy more?: never true In the past 12 mos, the food you bought just didn't last and you didn't have money to buy more?: never true Highest level of school completed/degree received: decline to answer Smoking Status: Former smoker What tobacco products do you use: cigarettes Smoking packs per day: 0.25 Smoking cigarettes per day: 5.0 Smoking quit date/years: <= 15 years ago Do you use any of these nicotine containing products: None Second hand tobacco smoke exposure: No How often do you have a drink containing alcohol: monthly or less How many standard drinks containing alcohol do you have on a typical day: 1 or 2 How often do you have six or more drinks on one occasion: Never AUDIT-C Alcohol total score: 1 Non-prescribed substance use: denies use Caffeine: Yes How often does anyone, including family, friends and others, physically hurt you: never How often does anyone, including family, friends and others, insult or talk down to you: never How often does anyone, including family, friends and others, threaten you with harm: never How often does anyone, including family, friends and others, scream or curse at you: never service: No Meds Home Medications and Allergies Home Medications ?Medication ?Instructions ?Recorded ?Confirmed ?Type Home Oxygen 03/09/23 03/03/25 History thiamine HCl (vitamin B1) 100 mg 100 mg PO QDAY #90 tabs 05/27/23 03/03/25 Rx tablet hydroxyzine HCl 50 mg tablet 50 mg PO BID PRN anxiety #60 tabs 06/16/23 03/03/25 Rx multivitamin with iron-mineral 1 tab PO QDAY #100 tabs 03/16/24 03/03/25 Rx ipratropium 0.5 mg-albuterol 3 mg 3 ml inhalation QID PRN shortness 05/10/24 03/03/25 Rx (2.5 mg base)/3 mL nebulization of breath #360 mL soln albuterol sulfate 90 mcg/actuation 2 inh inhalation Q4-6H PRN 06/27/24 03/03/25 Rx aerosol inhaler shortness of breath or wheezing #8.5 grams pantoprazole 40 mg tablet,delayed 40 mg PO DAILY #90 tabs 07/27/24 03/03/25 Rx release fluoxetine 40 mg capsule 40 mg PO DAILY #90 caps 11/12/24 03/03/25 Rx ergocalciferol (vitamin D2) 1,250 50,000 unit PO .Once Weekly #12 11/23/24 03/03/25 Rx mcg (50,000 unit) capsule caps lorazepam 1 mg tablet 1 mg PO BID PRN anxiety #60 tabs 01/04/25 03/03/25 Rx famotidine 20 mg tablet 20 mg PO BID PRN GERD #180 tabs 02/04/25 03/03/25 Rx fluticasone 500 mcg-salmeterol 50 1 inh PO BID 03/04/25 03/04/25 History mcg/dose blistr powdr for inhalation tiotropium bromide 18 mcg capsule 1 cap inhalation DAILY 03/04/25 03/04/25 History with inhalation device (Spiriva with HandiHaler) Allergies Allergy/AdvReac Type Severity Reaction Status Date / Time cefadroxil Allergy Severe anaphylacic Verified 03/03/25 14:12 shock bupropion Allergy Intermediate increased Verified 03/03/25 14:12 depression and shaking erythromycin base Allergy Intermediate GI Verified 03/03/25 14:12 intolerance Exam Narrative: Exam Narrative: General appearance: Alert, cooperative, and in no distress patient is frail appearing Eyes: PERRLA, eye lids clear, and sclera white HENT Head: Normocephalic Ears: NG in place with greenish brown drainage in the canister. Pulmonary: Breathing is nonlabored. Patient is on her baseline 2 L of nasal cannula. Cardiovascular Heart: Regular rate Gastrointestinal Abdominal: Abdomen is flat. Somewhat firm. Mildly tender to palpation. Absent bowel sounds. Musculoskeletal: Extremities: Upper: Both upper extremities have normal joint range of motion and intact strength. Lower: Both lower extremities have normal joint range of motion and intact strength. Skin: Normal skin color, texture, and turgor. Neurologic: No focal deficits Psychiatric: Alert, oriented, cooperative, normal affect. Const: Vital Signs, click to edit/add: Vital Signs - 24 hr 03/03/25 14:17 03/03/25 15:29 03/03/25 15:30 Temperature 98.5 F Pulse Rate 107 H 105 H Pulse Rate [Pulse Oximeter] 120 H Pulse Rate [Right Pulse Oximeter] Respiratory Rate 24 Blood Pressure [Ri ght Arm] Blood Pressure [Ri ght Upper Arm] 112/70 Pulse Oximetry 92 98 97 Oxygen Delivery Me thod Nasal Cannula Oxygen Flow Rate 2 03/03/25 15:45 03/03/25 16:12 03/03/25 16:15 Temperature Pulse Rate 91 103 H 103 H Pulse Rate [Pulse Oximeter] Pulse Rate [Right Pulse Oximeter] Respiratory Rate Blood Pressure [Ri ght Arm] Blood Pressure [Ri ght Upper Arm] Pulse Oximetry 97 99 98 Oxygen Delivery Me thod Nasal Cannula Nasal Cannula Nasal Cannula Oxygen Flow Rate 2 2 2 03/03/25 16:30 03/03/25 16:45 03/03/25 17:03 Temperature Pulse Rate 103 H 96 111 H Pulse Rate [Pulse Oximeter] Pulse Rate [Right Pulse Oximeter] Respiratory Rate Blood Pressure [Ri ght Arm] Blood Pressure [Ri ght Upper Arm] Pulse Oximetry 97 99 93 Oxygen Delivery Me thod Nasal Cannula Nasal Cannula Nasal Cannula Oxygen Flow Rate 2 2 2 03/03/25 17:15 03/03/25 17:30 03/03/25 19:00 Temperature 98.8 F Pulse Rate 120 H 117 H Pulse Rate [Pulse Oximeter] Pulse Rate [Right Pulse Oximeter] 94 Respiratory Rate 26 H Blood Pressure [Ri ght Arm] 114/82 Blood Pressure [Ri ght Upper Arm] Pulse Oximetry 97 95 94 Oxygen Delivery Me thod Nasal Cannula Nasal Cannula Nasal Cannula Oxygen Flow Rate 2 2 2 03/03/25 19:20 03/03/25 19:20 03/03/25 23:00 Temperature 98.8 F Pulse Rate Pulse Rate [Pulse Oximeter] Pulse Rate [Right Pulse Oximeter] 94 80 Respiratory Rate 24 24 Blood Pressure [Ri ght Arm] 114/82 Blood Pressure [Ri ght Upper Arm] Pulse Oximetry 94 94 Oxygen Delivery Me thod Nasal Cannula Oxygen Flow Rate 2 03/03/25 23:00 03/03/25 23:00 03/04/25 03:00 Temperature 98.2 F 97.6 F Pulse Rate Pulse Rate [Pulse Oximeter] Pulse Rate [Right Pulse Oximeter] 80 82 Respiratory Rate 24 24 20 Blood Pressure [Ri ght Arm] 118/73 95/63 Blood Pressure [Ri ght Upper Arm] Pulse Oximetry 90 90 95 Oxygen Delivery Me thod Nasal Cannula Nasal Cannula Nasal Cannula Oxygen Flow Rate 2 2 2 Results Labs Labs: WBC today is 11 from 15 BMP is significant for elevated carbon dioxide at 37. Calcium is also elevated at [address] scan report/results: report reviewed and image reviewed Additional studies: CT abdomen/pelvis: Indication: 69-year-old female with abdominal pain. Technique: Routine enhanced abdomen and pelvis protocol with 40 mL Isovue 370 IV contrast. Comparison: April 26, 2022 CT abdomen and pelvis Findings : Lung bases: No findings for active disease. Liver: Normal in caliber and attenuation. No masses. Gallbladder and bile ducts: Cholecystectomy. No biliary dilation Pancreas: Unremarkable. Spleen: Normal in caliber. No masses. Adrenal glands: Unremarkable. No masses. Kidneys: No obstruction. No masses. No calculi. GI tract: Multiple dilated loops of dilated small bowel with air-fluid levels are present measuring up to 3 centimeters. Luis Armando terminal ileum postoperative changes appear stable in the right lower quadrant with a few loops of nondistended small bowel present. The colon is partially decompressed, more marked in the left hemicolon. A transition point is not identified. Appendix: No acute appendicitis. Lymph nodes: No lymphadenopathy. Aorta and vessels: No aneurysm or severe stenosis. Omentum/peritoneum/retroperitoneum: No masses or infiltration. No free air or significant free fluid. Pelvic organs: Unremarkable. Bones: Mild progression of grade 2 degenerate spondylolisthesis L4 on L5 Soft Tissues: No mass lesions or significant hernias. Impression: 1. High-grade distal small-bowel obstruction. Transition point not identified, likely due to adhesions. No bowel wall thickening about the luis armando terminal ileum in the left lower quadrant. 2. Mild progression of grade 2 degenerative spondylolisthesis L4 on L5. 3. No other significant interval changes. Dictated by Lm Dumont MD @ 03/03/2025 4:59:56 PM Chest x-ray INDICATION: NGT placement. COMPARISON: 04/29/2022. Technique single-view chest. FINDINGS: Enteric tube in place with tip below the diaphragm. Side hole is not visible. Hyperinflation of both lungs. No pleural effusions. No pneumothorax. Normal cardiomediastinal silhouette. Dictated by Jonathan Ann MD @ 03/03/2025 6:49:53 PM Progress Note:A&P Assessment and plan (1) Protein-calorie malnutrition, severe: Status: Acute (2) Small bowel obstruction: Status: Acute (3) Chronic obstructive pulmonary disease: Status: Chronic (4) Gastroesophageal reflux disease: Status: Chronic (5) Generalized anxiety disorder: Status: Chronic (6) Tobacco dependence: Status: Chronic (7) Pulmonary hypertension: Status: Chronic Plan The patient is a 69-year-old female with small-bowel obstruction in the setting of prior abdominal surgeries. I discussed with the patient and her family that many bowel obstructions resolve with conservative management with NG decompression. I am somewhat concerned about her persistently elevated white blood cell count though it has slightly improved today. Pain has also improved, therefore we will continue with NG decompression. I do recommend a Gastrografin challenge. This can be diagnostic and therapeutic. We discussed that if she were to develop worsening pain, tachycardia, fever or worsening labs that we may have to consider exploration sooner, otherwise we would like to give her at least 48 hours after the Gastrografin challenge to resolve. We discussed that surgery could include lysis of adhesions versus possible bowel resection. We did talk about risks of surgery. I think her biggest risk is pulmonary complications given her COPD, though she is somewhat frail and also at risk for wound healing complication and anastomotic leak were an anastomosis necessary. She expressed good understanding. Will continue NG decompression and will administer Gastrografin today with a repeat x-ray tomorrow.
[2025-03-04] MEDS: 0.9 % SODIUM CHLORIDE 500 ML 500 ML IV (08:49)
[2025-03-04] MEDS: FLUOXETINE HCL 20 MG CAPSULE 40 MG PO (08:51)
[2025-03-04] MEDS: THIAMINE 100 MG TABLET PO (08:51)
[2025-03-04] MEDS: ALBUTEROL INHALER 2 PUFF IH ×2 (10:07→19:52)
[2025-03-04 11:00] VITALS: BP 95/52; BP 99/60; PULSE 89; RESP 18; TEMP 36.4; O2SAT 90
[2025-03-04 11:13] VITALS: BMI 15.1
[2025-03-04 12:28] LABS: INR 0.87 (0.91-1.10); Prothrombin Time 12.6 Seconds
[2025-03-04 12:31] LABS: Alanine Aminotransferase* 20 U/L (4-35); Alkaline Phosphatase* 55 U/L (40-150); Aspartate Amino Transferase* 34 U/L (12-35); Bilirubin Total* 0.6 mg/dL (0.1-1.5); Magnesium* 1.8 mg/dL (1.5-2.6); Phosphorus* 4.5 mg/dL (2.5-4.5); Total Protein* 6.7 g/dL (6.0-8.3); Triglycerides* 138 mg/dL (40-149)
[2025-03-04] MEDS: DIATRIZOATE MEGLUMINE, SODIUM 120 ML SOLUTION 90 ML NG (12:52)
--- NOTE | 2025-03-04 14:41 | P.IMPN_ITS ---
Assessment and Plan Assessment and plan (1) Small bowel obstruction: Problem comment: - 03/2022 s/p laparoscopic right hemicolectomy for endoscopically unresectable cecal polyps - 04/2022 Partial SBO, managed conservatively - 03/03/25 CT abd/pelvis: High grade SBO without transition point, possibly due to adhesions. NGT in place. Admit for SBO. Continue NGT to LIS. I have started LR @ 100cc/hr. -consult General surgery. Status: Acute (2) Chronic obstructive pulmonary disease: Problem comment: Home O2 2LPM continuously. Has chronic hypoxia requiring oxygen and chronic CO2 retention requiring caution with oxygen. - sees inspector air carrier at [place] [facility] Status: Chronic (3) Protein-calorie malnutrition, severe: Problem comment: - Also diagnosed in 2022 at [facility] - suspect multifactorial: severe, chronic COPD, poor oral intake Patient has lost 9 kg/20 lb since April 2024 or approximately 2 lb a month. April 2024 she was 49 kg and now 40 kg Initiate PPN. May need TPN depending on her clinical course Status: Acute (4) Generalized anxiety disorder: Problem comment: On chronic lorazepam Status: Chronic (5) Tobacco dependence: Problem comment: - start nicotine patch Status: Chronic (6) Pulmonary hypertension: Problem comment: Echocardiogram from March 2022 showed severe pulmonary hypertension with right- sided pressure of 51 mmHg plus right atrial pressure Status: Chronic Plan Continue in hospital for ongoing evaluation and management of small bowel obstruction, hypoxic and hypercarbic respiratory failure, malnutrition. Total Time Spent Total Time Spent: Total time spent today is 60 minutes in reviewing outside records, discussion with patient, daughter, other providers ongoing management of small bowel obstruction, severe COPD and mental nutrition Subjective Date Seen: 03/04/25 Interval history: Bianca Wang is a 69 year old female who has oxygen dependent COPD and h/o SBO and irritable bowel syndrome who came in through the ER for abdominal pain. The patient is very [place] and sleepy from pain medications, so her daughter, Jenni, who is with her, gives the history. Jenni tells me that Bianca had masses on her colonoscopy a few years ago and had to have part of her colon removed. A week later, she developed a SBO for which she was in our hospital for a while. Since then, Jenni says, Bianca has had intermittent nausea and problems eating. Bianca doesn't like going to doctors and has been worried that she will have to have surgery again, which she is scared will kill her, so she has not gone to a doctor for these symptoms. Since November or December, Jenni has noticed a big decline. Bianca doesn't go out much anymore and gave up driving. She is eating very little, complains of nausea, and is losing a lot of weight and muscle mass. She has intermittent diarrhea and constipation. Yesterday, Bianca started having severe diffuse abdominal pain which has been constant and is associated with nausea and vomiting. She hasn't been able to eat or drink anything since this started. She denies fever or chills, CP, worsening SOB, melena or hematochezia. 03/04/2025: Patient had NG tube placed. Receiving IV fluids and IV pain medicat ion. She reports her breathing is at baseline. She seems to tolerate oxygen at about 1-2 L per nasal cannula though does desaturate especially after receiving pain medications. Pain is adequately managed. Exam Narrative: Exam Narrative: She is alert and appears in no distress. She gives her own history. She is hard of hearing. Oropharynx with dry mucous membranes. Neck is supple without mass or adenopathy. Respirations with marked diminished breath sounds in all lung grimm. Prolonged expiratory phase. Minimal wheezing. Cardiovascular: S1, S2, regular rate and rhythm/borderline tachycardia. Abdomen: Bowel sounds are present. Abdomen is soft with mild diffuse tenderness. Extremities without edema. Overall patient is somewhat cachectic appearing Const: Vital Signs, click to edit/add: Vital Signs - 24 hr 03/03/25 15:29 03/03/25 15:30 03/03/25 15:45 Temperature Pulse Rate 107 H 105 H 91 Pulse Rate [Right Pulse Oximeter] Respiratory Rate Blood Pressure [Le ft Arm] Blood Pressure [Ri ght Arm] Pulse Oximetry 98 97 97 Oxygen Delivery Me thod Nasal Cannula Oxygen Flow Rate 2 03/03/25 16:12 03/03/25 16:15 03/03/25 16:30 Temperature Pulse Rate 103 H 103 H 103 H Pulse Rate [Right Pulse Oximeter] Respiratory Rate Blood Pressure [Le ft Arm] Blood Pressure [Ri ght Arm] Pulse Oximetry 99 98 97 Oxygen Delivery Me thod Nasal Cannula Nasal Cannula Nasal Cannula Oxygen Flow Rate 2 2 2 03/03/25 16:45 03/03/25 17:03 03/03/25 17:15 Temperature Pulse Rate 96 111 H 120 H Pulse Rate [Right Pulse Oximeter] Respiratory Rate Blood Pressure [Le ft Arm] Blood Pressure [Ri ght Arm] Pulse Oximetry 99 93 97 Oxygen Delivery Me thod Nasal Cannula Nasal Cannula Nasal Cannula Oxygen Flow Rate 2 2 2 03/03/25 17:30 03/03/25 19:00 03/03/25 19:20 Temperature 98.8 F 98.8 F Pulse Rate 117 H Pulse Rate [Right Pulse Oximeter] 94 94 Respiratory Rate 26 H 24 Blood Pressure [Le ft Arm] Blood Pressure [Ri ght Arm] 114/82 114/82 Pulse Oximetry 95 94 94 Oxygen Delivery Me thod Nasal Cannula Nasal Cannula Nasal Cannula Oxygen Flow Rate 2 2 2 03/03/25 19:20 03/03/25 23:00 03/03/25 23:00 Temperature Pulse Rate Pulse Rate [Right Pulse Oximeter] 80 Respiratory Rate 24 24 Blood Pressure [Le ft Arm] Blood Pressure [Ri ght Arm] Pulse Oximetry 94 90 Oxygen Delivery Me thod Nasal Cannula Oxygen Flow Rate 2 03/03/25 23:00 03/04/25 03:00 03/04/25 07:00 Temperature 98.2 F 97.6 F 97.6 F Pulse Rate Pulse Rate [Right Pulse Oximeter] 80 82 90 Respiratory Rate 24 20 20 Blood Pressure [Le ft Arm] Blood Pressure [Ri ght Arm] 118/73 95/63 91/63 Pulse Oximetry 90 95 92 Oxygen Delivery Me thod Nasal Cannula Nasal Cannula Nasal Cannula Oxygen Flow Rate 2 2 2 03/04/25 07:00 03/04/25 11:00 Temperature 97.6 F Pulse Rate Pulse Rate [Right Pulse Oximeter] 89 Respiratory Rate 18 18 Blood Pressure [Le ft Arm] 95/52 L Blood Pressure [Ri ght Arm] 99/60 Pulse Oximetry 92 90 Oxygen Delivery Me thod Nasal Cannula Nasal Cannula Oxygen Flow Rate 2 0.5 Documenting provider has reviewed patient's vital signs: yes Labs Labs: Laboratory Results - last 24 hr 03/03/25 03/03/25 03/03/25 14:58 15:05 Unknown WBC 15.72 H RBC 4.02 Hgb 12.3 Hct 37.7 MCV 94 MCH 31 MCHC 33 RDW Coeff of Riri 12.1 Plt Count 300 Neut % (Auto) 73.6 H Lymph % (Auto) 19.5 L [place] % (Auto) 5.3 Eos % (Auto) 0.0 Baso % (Auto) 0.1 Neut # (Auto) 11.60 H Lymph # (Auto) 3.10 H [place] # (Auto) 0.80 Eos # (Auto) 0.00 Baso # (Auto) 0.00 Abs Immat Gran (auto) 0.20 Imm/Tot Granulo (auto) 1.5 INR ABG pH 7.41 ABG pCO2 59 H ABG pO2 79.0 L ABG HCO3 37 H ABG Total CO2 35 H ABG O2 Saturation 92 ABG Base Excess 3.5 H Sodium 136 Potassium 4.2 Chloride 93 L Carbon Dioxide 36 H Anion Gap 7 BUN 22 Creatinine 0.8 Estimated GFR 79 Glucose 144 H Lactate 1.2 Calcium 11.7 H Phosphorus Magnesium Total Bilirubin 0.8 AST 33 ALT 22 Alkaline Phosphatase 62 Total Protein 7.9 Albumin 4.7 Triglycerides Lipase 99 Urine Color Yellow Urine Appearance Clear Urine pH 7.0 Ur Specific [place] 1.010 Urine Protein Trace A Urine Glucose (UA) Negative Urine Ketones Negative Urine Blood Trace-intact A Urine Nitrite Negative Urine Bilirubin Negative Urine Urobilinogen 1.0 Ur Leukocyte Esterase Negative Urine RBC 0-2 Urine WBC 0-2 Ur Squamous Epith Cells None Urine Bacteria None 03/04/25 05:45 WBC 11.75 H RBC 3.52 L Hgb 10.8 L Hct 34.0 MCV 97 MCH 31 MCHC 32 RDW Coeff of Riri 12.4 Plt Count 255 Neut % (Auto) 68.0 Lymph % (Auto) 24.5 [place] % (Auto) 6.9 Eos % (Auto) 0.2 Baso % (Auto) 0.1 Neut # (Auto) 8.00 H Lymph # (Auto) 2.90 [place] # (Auto) 0.80 Eos # (Auto) 0.00 Baso # (Auto) 0.00 Abs Immat Gran (auto) 0.00 Imm/Tot Granulo (auto) 0.3 INR 0.87 L ABG pH ABG pCO2 ABG pO2 ABG HCO3 ABG Total CO2 ABG O2 Saturation ABG Base Excess Sodium 137 Potassium 4.3 Chloride 98 Carbon Dioxide 37 H Anion Gap 2 L BUN 24 Creatinine 0.8 Estimated GFR 79 Glucose 121 H Lactate Calcium 11.0 H Phosphorus 4.5 Magnesium 1.8 Total Bilirubin 0.6 AST 34 ALT 20 Alkaline Phosphatase 55 Total Protein 6.7 Albumin 4.0 Triglycerides 138 Lipase Urine Color Urine Appearance Urine pH Ur Specific [place] Urine Protein Urine Glucose (UA) Urine Ketones Urine Blood Urine Nitrite Urine Bilirubin Urine Urobilinogen Ur Leukocyte Esterase Urine RBC Urine WBC Ur Squamous Epith Cells Urine Bacteria
--- NOTE | 2025-03-04 14:50 | RESP.RT ---
Patient this morning was SATing 100% on 3L NC sleeping. Patient is a current smoker and appears to be end stage COPD with very little air movement on auscultation. Patient was given an Aerobika to help mobilize secretions. We reviewed inhalers and the need to use a spacer with her MDIs. She states that her horticulture professor told her that it is ok to have SATs 98 and above and that she should stay on 2L NC all the time. We reviewed with her and her daughter that CO2 retention will cause increased harm and that her respiratory drive is controlled by having SATs targeting 88-92% and that SATs above 95% should be avoided. Seeing that she has been noncompliant with inhalers and still smokes while on supplemental O2, it is difficult to tell if she would be compliant with different O2 flows at rest and with activity. She states that she is not very active anymore.
[2025-03-04 15:00] VITALS: BP 101/63; PULSE 98; RESP 18; TEMP 36.6; O2SAT 90
[2025-03-04] MEDS: AA 4.25%/CALCIUM/LYTES/DEX 5 % 2,000 ML 25 ML IV (15:05)
[2025-03-04 19:00] VITALS: BP 116/60; PULSE 109; RESP 24; TEMP 36.6; O2SAT 83
--- NOTE | 2025-03-04 19:33 | PC.NURSE ---
End of shift [id number]: AxOx4, pleasant, and cooperative with cares. 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 Pt titrating 0.5L-3L O2 to maintain oxygen saturation >88% during activity/inactivity. NG to 65 in the left nare, currently clamped and tolerating well. MD Doll reported to keep clamp prior to Xray @ 2100 if Pt able to tolerate. Pt reported nausea during shift, relief reported with PRN Zofran. Bowel sounds active and passing flatus. Pt up SBA to the BR refusing to use walker. TEDS in place, refusing SCDs, education given. PRN Dilaudid given for pain per Pt request. Nicotine patch present remaining CDI. Awaiting fluid verification, LR @ 75 ml/hr and PPN @ 25 ml/hr. Pt appears resting in bed with family at bedside, call light within reach.
[2025-03-04] MEDS: 5 % DEXTROSE IN LAC RINGER'S 1,000 ML 50 ML IV (19:34)
--- NOTE | 2025-03-04 21:00 | CRLHL7_ITS ---
For Patients: As a result of the Century Cures Act, medical imaging exams and procedure reports are released immediately into your electronic medical record. You may view this report before your referring provider. If you have questions, please contact your health care provider. Indication: Small-bowel obstruction status post Gastrografin administration. Technique: Abdomen 1 view. Comparison: CT abdomen and pelvis 03/03/2025. Findings: Enteric tube tip projects in the distal stomach. There is oral contrast throughout the small and large bowel, down through the descending colon. There are still several mildly dilated air-filled and contrast filled loops of small bowel. No evidence for free air. Cholecystectomy clips. The osseous structures are unremarkable for age. The lung bases are clear. Impression: 1. Interval administration of oral contrast, which is present in the descending colon. However, there are still several mildly dilated air-filled and contrast filled loops of small bowel, compatible with persistent partial small bowel obstruction or ileus. Dictated by Chester Qiu MD @ 03/04/2025 10:40:53 PM (Electronically Signed)
[2025-03-04] MEDS: ENOXAPARIN 30 MG/0.3ML INJ SUBCUT (21:08)
[2025-03-04] MEDS: NICOTINE 14 mg PATCH 1 PATCH TRANSDERMA (21:08)
[2025-03-05] VITALS (10 sets, daily range): BP systolic 96–130; BP diastolic 52–90; PULSE 89–104; RESP 14–24; TEMP 36.8–37.4; O2SAT 90–94
[2025-03-05] MEDS: AA 4.25%/CALCIUM/LYTES/DEX 5 % 2,000 ML 45 ML IV (00:45)
[2025-03-05] MEDS: ONDANSETRON 2 MG/ML inj 4 MG IVP ×3 (01:44→22:16)
[2025-03-05] MEDS: HYDROmorphone 0.5 mg/0.5 ml inj IVP ×5 (01:49→20:34)
[2025-03-05] MEDS: SODIUM CHLORIDE 0.9 % (FLUSH) 10 ML SYRINGE 5 ML IVF ×2 (04:53→20:35)
[2025-03-05] MEDS: AA 4.25%/CALCIUM/LYTES/DEX 5 % 2,000 ML 65 ML IV ×2 (06:00→14:28)
[2025-03-05 06:20] LABS: HCO3 VBG 41 mmol/L (21-28); PO2 VBG 39.2 mmHG (25-47); pH VBG 7.293 (7.32-7.43)
[2025-03-05 06:31] LABS: PCO2 VBG 84 mmHG (40-50)
[2025-03-05 06:41] LABS: Chloride* 96 mmol/L (96-114); Potassium* 3.9 mmol/L (3.6-5.1); Sodium* 137 mmol/L (135-149)
[2025-03-05 06:43] LABS: Blood Urea Nitrogen* 27 mg/dL (7-30); Creatinine* 0.7 mg/dL (0.5-1.5); Est. Creatinine Clearance* 32.63; Estimated Glomerular Filt Rate 92 ml/min
[2025-03-05 06:44] LABS: Calcium* 9.9 mg/dL (8.4-10.6); Glucose* 127 mg/dL (60-115); Magnesium* 1.9 mg/dL (1.5-2.6); Phosphorus* 3.2 mg/dL (2.5-4.5)
[2025-03-05 06:50] LABS: Carbon Dioxide* 36 mmol/L (20-32)
[2025-03-05 06:51] LABS: Anion Gap 1 mEq/L (7-15)
--- NOTE | 2025-03-05 08:12 | PC.NURSE ---
Pt is alert and oriented x3. Afebrile. Pt reports 5/10 abdominal pain, managed with PRN medication. Pt reported nausea, no emesis, managed with PRN medication. Pt is up SBA with IV pole and NG tube, voiding and tolerating an NPO diet. Pt's NG tube is patent and draining brown liquid. Pt's NG is at 65 cm.
[2025-03-05] MEDS: FLUOXETINE HCL 20 MG CAPSULE 40 MG PO (09:26)
[2025-03-05] MEDS: THIAMINE 100 MG TABLET PO (09:26)
[2025-03-05] MEDS: LORazepam 1 MG TABLET PO ×2 (09:27→20:40)
[2025-03-05] MEDS: IPRAT-ALBUT 0.5-2.5 MG/3 ML NEB 1 NEB IH ×3 (09:28→19:59)
--- NOTE | 2025-03-05 09:37 | PM.GSPN ---
Subjective Subjective Date Seen: 03/05/25 Interval history: Bianca was moved to CCU this morning because of hypoxia and hypercapnia though she appears comfortable this morning. She states that she still has some abdominal pain. She has some nausea. Her main discomfort is in her throat from the NG tube. She did pass some gas. Was started on PPN yesterday for chronic malnutrition and weight loss. Exam Narrative: Exam Narrative: General: No acute distress, patient is alert, however she is somewhat confused during our discussion. Respiratory: Breathing is comfortable on nasal cannula NG with 400 mL out in 24 hours Abdomen: Softer. Patient does have some tenderness though it appears to be minimal. Const: Vital Signs, click to edit/add: Vital Signs - 24 hr 03/04/25 11:00 03/04/25 15:00 03/04/25 15:00 Temperature 97.6 F 97.9 F Pulse Rate [Right Pulse Oximeter] 89 98 Respiratory Rate 18 18 18 Blood Pressure [Le ft Arm] 95/52 L Blood Pressure [Ri ght Arm] 99/60 101/63 Pulse Oximetry 90 90 90 Oxygen Delivery Me thod Nasal Cannula Nasal Cannula Nasal Cannula Oxygen Flow Rate 0.5 2 2 03/04/25 19:00 03/05/25 00:28 03/05/25 00:28 Temperature 98 F Pulse Rate [Right Pulse Oximeter] 109 H 92 Respiratory Rate 24 20 20 Blood Pressure [Le ft Arm] 116/60 Blood Pressure [Ri ght Arm] Pulse Oximetry 83 L 92 Oxygen Delivery Me thod Nasal Cannula Nasal Cannula Oxygen Flow Rate 2 2 03/05/25 00:28 03/05/25 02:00 03/05/25 08:00 Temperature 99.3 F 98.8 F 99 F Pulse Rate [Right Pulse Oximeter] 92 89 89 Respiratory Rate 20 18 24 Blood Pressure [Le ft Arm] Blood Pressure [Ri ght Arm] 108/90 H 96/65 113/59 L Pulse Oximetry 92 92 90 Oxygen Delivery Me thod Nasal Cannula Nasal Cannula Nasal Cannula Oxygen Flow Rate 2 2 2 03/05/25 09:19 03/05/25 09:23 Temperature Pulse Rate [Right Pulse Oximeter] Respiratory Rate Blood Pressure [Le ft Arm] Blood Pressure [Ri ght Arm] Pulse Oximetry Oxygen Delivery Me thod Nasal Cannula Nasal Cannula Oxygen Flow Rate 2 2 Labs/Imaging Labs Labs: pCO2 84 on venous blood gas Imaging Imaging: Abdominal x-ray shows contrast in the colon. Progress Note:A&P Assessment and plan (1) Protein-calorie malnutrition, severe: Status: Acute (2) Small bowel obstruction: Status: Acute (3) Chronic obstructive pulmonary disease: Status: Chronic (4) Generalized anxiety disorder: Status: Chronic (5) Hypercapnic respiratory failure: Status: Acute Plan The patient is a 69-year-old female with chronic malnutrition, COPD with hypercapnic respiratory failure generalized anxiety and small-bowel obstruction. Fortunately she does have contrast in her colon so I expect that she will have resumption of bowel function today. She is still having some abdominal pain and also states that she has some nausea, therefore I a.m. hesitant to remove the NG just yet. I think it is reasonable to clamping NG as long as she tolerates. -okay to try BiPAP if able to place around NG tube. Would pad chin/face and pressure points with Mepilex or DuoDerm to avoid pressure ulcer. When she is on BiPAP, unclamped the NG. - If she has antegrade bowel function could DC the NG tube. -Minimize opioid pain medication given hypercapnia and confusion. -Patient will be a poor surgical candidate in terms of respiratory function, postoperative recovery and healing. If obstruction does not completely resolve, she may benefit from transfer to a tertiary center with ICU.
[2025-03-05] MEDS: ALBUTEROL SULFATE 2.5 MG/3 ML VIAL.NEB NEB (10:45)
--- NOTE | 2025-03-05 14:08 | P.IMPN_ITS ---
Assessment and Plan Assessment and plan (1) Hypercapnic respiratory failure: Problem comment: This appears to be chronic but worse, possibly due to use of opioids for pain and benzodiazepines for anxiety. Status: Acute (2) Protein-calorie malnutrition, severe: Problem comment: - Also diagnosed in [address] [facility] - suspect multifactorial: severe, chronic COPD, poor oral intake Patient has lost 9 kg/20 lb since April 2024 or approximately 2 lb a month. April 2024 she was 49 kg and now 40 kg Initiate PPN. May need TPN depending on her clinical course Status: Acute (3) Small bowel obstruction: Problem comment: - 03/2022 s/p laparoscopic right hemicolectomy for endoscopically unresectable cecal polyps - 04/2022 Partial SBO, managed conservatively - 03/03/25 CT abd/pelvis: High grade SBO without transition point, possibly due to adhesions. NGT in place. Admit for SBO. Continue NGT to LIS. I have started LR @ 100cc/hr. -consult General surgery. Status: Acute (4) Chronic obstructive pulmonary disease: Problem comment: Home O2 2LPM continuously. Has chronic hypoxia requiring oxygen and chronic CO2 retention requiring caution with oxygen. - sees afterschool babysitter at [facility] Status: Chronic (5) Generalized anxiety disorder: Problem comment: On chronic lorazepam Status: Chronic Plan Continue in-hospital for monitoring small-bowel obstruction, malnutrition and respiratory failure. Co manage with surgery regarding nutrition and feeding. Plan of care is discussed with patient, daughters, surgery, providers about management of these problems. Total Time Spent Total Time Spent: Total time spent today is 60 minutes in coordination of care and above discussion. Subjective Date Seen: 03/05/25 Interval history: Bianca Wang is a 69 year old female who has oxygen dependent COPD and h/o SBO and irritable bowel syndrome who came in through the ER for abdominal pain. The patient is very [place] and sleepy from pain medications, so her daughter, Jenni, who is with her, gives the history. Jenni tells me that Bianca had masses on her colonoscopy a few years ago and had to have part of her colon removed. A week later, she developed a SBO for which she was in our hospital for a while. Since then, Jenni says, Bianca has had intermittent nausea and problems eating. Bianca doesn't like going to doctors and has been worried that she will have to have surgery again, which she is scared will kill her, so she has not gone to a doctor for these symptoms. Since November or December, Jenni has noticed a big decline. Bianca doesn't go out much anymore and gave up driving. She is eating very little, complains of nausea, and is losing a lot of weight and muscle mass. She has intermittent diarrhea and constipation. Yesterday, Bianca started having severe diffuse abdominal pain which has been constant and is associated with nausea and vomiting. She hasn't been able to eat or drink anything since this started. She denies fever or chills, CP, worsening SOB, melena or hematochezia. 03/04/2025: Patient had NG tube placed. Receiving IV fluids and IV pain medication. She reports her breathing is at baseline. She seems to tolerate oxygen at about 1-2 L per nasal cannula though does desaturate especially after receiving pain medications. Pain is adequately managed. 03/05/2025: Patient is seen in followup of respiratory failure and small-bowel obstruction. She reports that she slept well last night. She has not had any notable dyspnea. She has had improvement in her abdominal pain. Gastrografin x-ray shows that contrast went through to her colon. Early this morning her blood gas showed a pH of 7.29 and a pCO2 of 84. She was on 2 L per nasal cannula when this was drawn. I went to see her and she reported feeling fine without dyspnea. When I saw her her O2 sat was in the upper 80s. She was transferred to the CCU in anticipation of noninvasive ventilatory support. She received a nebulizer and over the next hour she had marked improvement in her respiratory status. No bowel movement Exam Narrative: Exam Narrative: She is alert oriented and in no distress. Respirations: Marked decreased breath sounds with very poor air exchange and prolonged expiratory phase. No significant wheezing. Cardiovascular: S1, S2, regular rate and rhythm. Abdomen: Bowel sounds are present. Abdomen is soft with no significant tenderness and no mass. Extremities without edema. Const: Vital Signs, click to edit/add: Vital Signs - 24 hr 03/04/25 15:00 03/04/25 15:00 03/04/25 19:00 Temperature 97.9 F 98 F Pulse Rate Pulse Rate [Right Pulse Oximeter] 98 109 H Respiratory Rate 18 18 24 Blood Pressure [Le ft Arm] 116/60 Blood Pressure [Ri ght Arm] 101/63 Pulse Oximetry 90 90 83 L Oxygen Delivery Me thod Nasal Cannula Nasal Cannula Nasal Cannula Oxygen Flow Rate 2 2 2 03/05/25 00:28 03/05/25 00:28 03/05/25 00:28 Temperature 99.3 F Pulse Rate Pulse Rate [Right Pulse Oximeter] 92 92 Respiratory Rate 20 20 20 Blood Pressure [Le ft Arm] Blood Pressure [Ri ght Arm] 108/90 H Pulse Oximetry 92 92 Oxygen Delivery Me thod Nasal Cannula Nasal Cannula Oxygen Flow Rate 2 2 03/05/25 02:00 03/05/25 08:00 03/05/25 09:19 Temperature 98.8 F 99 F Pulse Rate Pulse Rate [Right Pulse Oximeter] 89 89 Respiratory Rate 18 24 Blood Pressure [Le ft Arm] Blood Pressure [Ri ght Arm] 96/65 113/59 L Pulse Oximetry 92 90 Oxygen Delivery Me thod Nasal Cannula Nasal Cannula Nasal Cannula Oxygen Flow Rate 2 2 2 03/05/25 09:23 03/05/25 10:00 03/05/25 11:29 Temperature 99 F Pulse Rate 95 Pulse Rate [Right Pulse Oximeter] 95 Respiratory Rate 18 Blood Pressure [Le ft Arm] Blood Pressure [Ri ght Arm] 130/72 Pulse Oximetry 94 Oxygen Delivery Me thod Nasal Cannula Nasal Cannula Oxygen Flow Rate 2 2 Documenting provider has reviewed patient's vital signs: yes Labs Labs: Laboratory Results - last 24 hr 03/05/25 06:08 VBG pH 7.293 L VBG pCO2 84 H* VBG pO2 39.2 VBG HCO3 41 H Sodium 137 Potassium 3.9 Chloride 96 Carbon Dioxide 36 H Anion Gap 1 L BUN 27 Creatinine 0.7 Estimated Creat Clear 32.63 Estimated GFR 92 Glucose 127 H Calcium 9.9 Phosphorus 3.2 Magnesium 1.9
--- NOTE | 2025-03-05 14:15 | RESP.RT ---
Respiratory Therapy Progress Note The patient experienced episodes of desaturation, with oxygen saturation levels dropping into the 70s. Upon transfer to the PCU, increased monitoring and care were initiated. Respiratory therapy collaborated with the multidisciplinary team to address the patient's pulmonary status. Scheduled nebulizer treatments were ordered and administered, resulting in improved oxygen saturation levels. The patient reported difficulty clearing secretions following oral medications; however, this issue resolved without the need for NTS. VBG indicated respiratory acidosis; however, the patient's mental status remained appropriate. The patient's desaturation episodes were likely related to impaired secretion clearance with restriction given her COPD. The administration of nebulizer treatments improved oxygen saturation levels. The decision to withhold BiPAP support was made collaboratively by the attending physician and the multidisciplinary team, considering the patient's current condition and response to treatment.
--- NOTE | 2025-03-05 15:39 | W.PM.CROSSCO ---
Subjective Subjective Interval history: I received a message from staff asking me to call the patient's daughter, Stacy Rea. I called her at [phone] at 3:30 p.m.. She expressed concern about the VBG from this morning having much different numbers than the blood gas from 2 days ago. I noted that the blood gas done on admission was an ABG and today's lab was a VBG, which explains some of the difference. Also, I noted that Bianca clinically looks to be at her baseline from a respiratory standpoint and she is not in distress. Stacy expressed concern that we are not doing anything to treat the high CO2. I said that actually we have tuned down her oxygen and given her nebulizers and again stated that clinically, her respiratory status and mental status are at her baseline. I also noted that to go on BiPAP, we may need to take out the NGT, which was just recently hooked back up to LIS for nausea, so right now I think we should favor treating her SBO and monitor her respiratory status and mentation clinically, obtaining another VBG tomorrow morning or sooner if her condition changes. Stacy expressed understanding and would still like the VBG done now. I agreed to order it with the understanding that we are not going to treat the number, but rather treat based on correlation with her clinical status. Stacy was in agreement with that plan of care.
[2025-03-05 15:58] LABS: HCO3 VBG 41 mmol/L (21-28); PO2 VBG 53.9 mmHG (25-47); pH VBG 7.301 (7.32-7.43)
[2025-03-05 16:06] LABS: PCO2 VBG 83 mmHG (40-50)
[2025-03-05] MEDS: 5 % DEXTROSE IN LAC RINGER'S 1,000 ML 50 ML IV (16:56)
--- NOTE | 2025-03-05 17:36 | PC.NURSE ---
Shift Summary: Patient pleasant and cooperative. Using bed carrizales due to low o2 sats with exertion. Vitals stable and WNL, afebrile. O2 1-4L/NC to maintain o2 sats 88-92%. NG clamped for 2.5hrs, increased nausea and pain, given PRN medication and hooked up to suction again, NG output appears green/yellow. NG clamped for medications. Nebs scheduled and PRN. Patient states passing gas, no BM. Continues to be NPO however patient does state she feels hungry this evening. Nicotine patch right upper arm.
[2025-03-05] MEDS: ENOXAPARIN 30 MG/0.3ML INJ SUBCUT (20:41)
--- NOTE | 2025-03-05 20:57 | CRLHL7_ITS ---
For Patients: As a result of the Cures Act, medical imaging exams and procedure reports are released immediately into your electronic medical record. You may view this report before your referring provider. If you have questions, please contact your health care provider. INDICATION: Increased oxygen needs, chronic obstructive pulmonary disease TECHNIQUE: Chest radiograph 1 view COMPARISON: 03/23/2025 FINDINGS: Mediastinum: The central pulmonary arteries are enlarged and likely due to pulmonary hypertension. The heart silhouette is normal in size and morphology. Lung: Bilateral pulmonary hyperinflation and lucency is noted. Minimal left basilar airspace opacities are noted. No sign of pleural effusion seen. No pneumothorax is identified. Bone and Soft tissue: Unremarkable for age. IMPRESSIONS: 1. Bilateral pulmonary hyperinflation and lucency is noted. This is suggestive of severe, stable pulmonary emphysema. 2. Minimal left basilar airspace opacities are noted. 3. The central pulmonary arteries are enlarged and likely due to pulmonary hypertension. Dictated by David Monaco MD @ 03/05/2025 9:32:05 PM Dictated by: David Monaco MD @ 03/05/2025 21:32:12 (Electronically Signed)
[2025-03-05] MEDS: NICOTINE 14 mg PATCH 1 PATCH TRANSDERMA (21:51)
--- NOTE | 2025-03-05 22:16 | P.CCN_ITS ---
Subjective Subjective Time Seen by Provider: 20:40 Date Seen: 03/05/25 Interval history: Radha's nurse reported that Radha appeared to have less pulmonary reserve and was requiring more oxygen. She had a trial of NGT clamping earlier, but became painful and nauseous, so this was hooked back up to low intermittent suction and she has had quite a bit out since then. Bianca tells me that she does feel short of breath intermittently over the last few days, but it is no worse today than when she came in the hospital. Her granddaughter is in the room with her and had some questions as well, which I answered. Objective Objective Data Details: Blood pressure 115/65, pulse 97, respirations 14, temperature 99.4? F, O2 sats 91% on 3 L nasal cannula. General: No acute distress. Awake, alert, oriented x3. No pallor. No jaundice. NG tube in place, hooked up to low intermittent suction. Oropharynx: Clear. Mucous membranes moist. Cardiovascular: Regular rate and rhythm. No murmurs, gallops, or rubs. Respiratory: No increased work of breathing. Poor air movement, unchanged from admission. Abdomen: Mildly distended, nontender to palpation. Extremities: No lower extremity edema. VBG from 1539 today was essentially unchanged from early this morning. Ordering Physician: Coleen Bowles M.D. Date of Service: 03/05/25 Procedure(s): XR chest 1V portable Accession Number(s): [id number] cc: Coleen Bowles M.D.; Robert Riley M.D.~ For Patients: As a result of the Century Cures Act, medical imaging exams and procedure reports are released immediately into your electronic medical record. You may view this report before your referring provider. If you have questions, please contact your health care provider. INDICATION: Increased oxygen needs, chronic obstructive pulmonary disease TECHNIQUE: Chest radiograph 1 view COMPARISON: 03/23/2025 FINDINGS: Mediastinum: The central pulmonary arteries are enlarged and likely due to pulmonary hypertension. The heart silhouette is normal in size and morphology. Lung: Bilateral pulmonary hyperinflation and lucency is noted. Minimal left basilar airspace opacities are noted. No sign of pleural effusion seen. No pneumothorax is identified. Bone and Soft tissue: Unremarkable for age. IMPRESSIONS: 1. Bilateral pulmonary hyperinflation and lucency is noted. This is suggestive of severe, stable pulmonary emphysema. 2. Minimal left basilar airspace opacities are noted. 3. The central pulmonary arteries are enlarged and likely due to pulmonary hypertension. Dictated by David Monaco MD @ 03/05/2025 9:32:05 PM Dictated by: David Monaco MD @ 03/05/2025 21:32:12 (Electronically Signed) Assessment and Plan Assessment and plan (1) Hypercapnic respiratory failure: Problem comment: This appears to be chronic but worse, possibly due to use of opioids for pain and benzodiazepines for anxiety. - having ups and Downs from a respiratory standpoint this evening, but doing well right now. I have reviewed the chest x-ray results as above. Continue m onitoring and recheck VBG in the morning. Status: Acute (2) Small bowel obstruction: Problem comment: - 03/2022 s/p laparoscopic right hemicolectomy for endoscopically unresectable cecal polyps - 04/2022 Partial SBO, managed conservatively - 03/03/25 CT abd/pelvis: High grade SBO without transition point, possibly due to adhesions. NGT in place. Admit for SBO. Continue NGT to LIS. I have started LR @ 100cc/hr. -consult General surgery. Status: Acute
--- NOTE | 2025-03-05 23:38 | PC.NURSE ---
Shift Note: Pt requested attempting to use BSC to void. No weakness observed. However, pt significantly desaturates to low 70's just standing/pivoting to BSC and required up to 10 minutes to fully rebound to 88-90% on 3L/O2 via NC. Duo-neb given. Family brought in pt's Trelegy inhaler, she was able to take a dose at HS. With inactivity SpO2= 87-91% on 2L/O2 via NC. Temporal thermometer reading 99.4 and right sided expiratory Rhonchi heard on auscultation. MD updated and CXR obtained and unremarkable. Pt verbalizes increased anxiety about why she isn't improving. Pt stated she has dozed a couple times and woke up in her hospital bed thinking she was holding a cigarette. She asked What do I need to do to get a cigarette around here? Pt also c/o increased abdominal pain/nausea. NG output from [id number]= 400cc. Bowel sounds diminished. No BM.
[2025-03-05] MEDS: INSULIN ASPART 100 UNIT/ML SUBCUT (23:48)
[2025-03-06] VITALS (7 sets, daily range): BP systolic 108–131; BP diastolic 62–70; PULSE 85–106; RESP 20–22; TEMP 36.7–37.5; O2SAT 88–92
[2025-03-06] MEDS: IPRAT-ALBUT 0.5-2.5 MG/3 ML NEB 1 NEB IH ×4 (02:27→20:23)
[2025-03-06] MEDS: HYDROmorphone 0.5 mg/0.5 ml inj IVP ×4 (02:27→19:40)
[2025-03-06] MEDS: ONDANSETRON 2 MG/ML inj 4 MG IVP ×2 (02:37→09:50)
[2025-03-06 06:19] LABS: HCO3 VBG 44 mmol/L (21-28); PO2 VBG 36.7 mmHG (25-47); pH VBG 7.373 (7.32-7.43)
[2025-03-06 06:22] LABS: PCO2 VBG 75 mmHG (40-50)
[2025-03-06 06:38] LABS: Chloride* 94 mmol/L (96-114); Potassium* 3.9 mmol/L (3.6-5.1); Sodium* 136 mmol/L (135-149)
[2025-03-06 06:40] LABS: Blood Urea Nitrogen* 32 mg/dL (7-30); Creatinine* 0.6 mg/dL (0.5-1.5); Est. Creatinine Clearance* 32.56; Estimated Glomerular Filt Rate 96 ml/min
[2025-03-06 06:41] LABS: Calcium* 9.7 mg/dL (8.4-10.6); Glucose* 141 mg/dL (60-115); Magnesium* 1.9 mg/dL (1.5-2.6); Phosphorus* 2.6 mg/dL (2.5-4.5)
[2025-03-06 06:49] LABS: Anion Gap 3 mEq/L (7-15); Carbon Dioxide* 39 mmol/L (20-32)
--- NOTE | 2025-03-06 06:55 | PC.NURSE ---
Pt is alert and oriented x3. Afebrile. Pt reports 5/10 pain in abdomen, pain managed with PRN medication, pt given Zofran for nausea associated with pain medication. Pt?s NG tube is patent and draining yellow/brown liquid. Pt was on 2L throughout night to maintain O2 stats of 88-90%. Pt is up SBA with walker and gait belt, voiding, and tolerating an NPO diet. ?
[2025-03-06] MEDS: LORazepam 1 MG TABLET PO ×2 (09:01→20:23)
--- NOTE | 2025-03-06 10:28 | PM.GSPN ---
Subjective Subjective Date Seen: 03/06/25 Interval history: Bianca had some crampy pain this morning requiring Dilaudid. She has not had any significant pain however otherwise. She states that the pain is intermittent when it comes. She did have a bowel movement today. NG tube has been clamped all day without nausea. She did go back to suction overnight I believe secondary to discomfort. There was some concern about her hypercapnia yesterday from family. Is being managed by the hospitalist. Exam Narrative: Exam Narrative: General: No acute distress NG in place, clamp Abdomen: Soft. Nontender. Bowel sounds present Const: Vital Signs, click to edit/add: Vital Signs - 24 hr 03/05/25 11:29 03/05/25 14:12 03/05/25 15:08 Temperature Pulse Rate 95 92 Pulse Rate [Right Pulse Oximeter] Respiratory Rate 18 Blood Pressure [Le ft Arm] Blood Pressure [Ri ght Arm] Pulse Oximetry 92 Oxygen Delivery Me thod Nasal Cannula Oxygen Flow Rate 2 03/05/25 15:24 03/05/25 19:00 03/05/25 23:30 Temperature 98.6 F 99.4 F Pulse Rate Pulse Rate [Right Pulse Oximeter] 98 97 104 H Respiratory Rate 18 14 16 Blood Pressure [Le ft Arm] 115/65 Blood Pressure [Ri ght Arm] 99/66 Pulse Oximetry 92 91 Oxygen Delivery Me thod Nasal Cannula Nasal Cannula Oxygen Flow Rate 3 3 03/05/25 23:30 03/05/25 23:30 03/06/25 02:29 Temperature 98.3 F 98.9 F Pulse Rate Pulse Rate [Right Pulse Oximeter] 104 H 100 Respiratory Rate 16 16 20 Blood Pressure [Le ft Arm] Blood Pressure [Ri ght Arm] 104/52 L 111/63 Pulse Oximetry 90 90 88 Oxygen Delivery Me thod Nasal Cannula Nasal Cannula Nasal Cannula Oxygen Flow Rate 2 2 2 03/06/25 07:00 Temperature Pulse Rate Pulse Rate [Right Pulse Oximeter] Respiratory Rate 20 Blood Pressure [Le ft Arm] Blood Pressure [Ri ght Arm] Pulse Oximetry 88 Oxygen Delivery Me thod Nasal Cannula Oxygen Flow Rate 2 Labs/Imaging Labs Labs: White blood cell count today is within normal limits. ABG continues to show hypercapnia. Progress Note:A&P Assessment and plan (1) Hypercapnic respiratory failure: Status: Acute (2) Protein-calorie malnutrition, severe: Status: Acute (3) Small bowel obstruction: Status: Acute (4) Chronic obstructive pulmonary disease: Status: Chronic Plan The patient is a 69-year-old female with a bowel obstruction which appears to be resolving given the passage of contrast on Gastrografin challenge and return of bowel function today. We will try clamping her NG to today and allowing her to have clear liquids. Unfortunately the patient does have some chronic abdominal pain which may cloud the picture somewhat when assessing as to whether not she improves. - she is a poor surgical candidate given her respiratory failure and also her chronic malnutrition. There is concern that she will need a higher level of care were she to require surgery. Overall she seems to be improving. Will continue conservative management and slow advancement of diet.
[2025-03-06 11:01] LABS: Basophils Absolute Auto 0.02 K/uL (0.00-0.30); Basophils Percent Auto 0.2 % (0.0-3.0); Eosinophils Percent Auto 1.1 % (0.0-7.0); Hematocrit 30.3 % (33.0-51.0); Hemoglobin* 9.4 gm/dL (12.0-16.0); Immature Granulocytes Abs Auto 0.01 K/uL (0.00-0.30); Immature Granulocytes Pct Auto 0.1 %; Lymphocytes Absolute Auto 1.91 K/uL (0.90-2.90); Lymphocytes Percent Auto 20.4 % (20-44); Mean Corpuscular HGB Conc 31 gm/dL (32-36); Mean Corpuscular Hemoglobin 31 pg (26-34); Mean Corpuscular Volume 99 fL (80-100); Monocytes Percent Auto 8.1 % (0.0-11.0); Neutrophils Absolute Auto 6.57 K/uL (1.7-7.0); Neutrophils Percent Auto 70.1 % (42.0-72.0); Platelet Count* 204 K/uL (140-440); RDW Coefficient of Variation % 12.1 % (11.5-15.5); Red Blood Count 3.06 m/uL (4.00-5.20); White Blood Count* 9.37 K/uL (4.50-11.00)
[2025-03-06 11:02] LABS: Slide Review Reflex No
[2025-03-06] MEDS: SODIUM CHLORIDE 0.9 % (FLUSH) 10 ML SYRINGE 5 ML IVF ×2 (16:00→19:40)
[2025-03-06] MEDS: Fluticasone-Umeclidin-Vilanter [Trelegy Ellipta] 200-62.5-25 mcg 1 EACH IH (16:09)
[2025-03-06] MEDS: AA 4.25%/CALCIUM/LYTES/DEX 5 % 2,000 ML 65 ML IV (16:10)
[2025-03-06] MEDS: 5 % DEXTROSE IN LAC RINGER'S 1,000 ML 50 ML IV (16:11)
--- NOTE | 2025-03-06 17:21 | W.PM.CROSSCO ---
Subjective Subjective Time Seen by Provider: 16:50 Date Seen: 03/06/25 Interval history: Nurse notified me of hypoxia into the 70s on 2-3L NC. Granddaughter in the room told me Bianca was down to 44% briefly. Bianca notes some increased work of breathing and a stuffy nose. No other new symptoms. Her NGT is clamped; she has not yet tried any of the clears at her bedside. We turned her oxygen up to 4 liters/minute and her oxygen saturations started to improve, but it was difficult to get her above 90 until we put the nasal cannula in her mouth and then she immediately came up to 94% and stayed there even on 2 L per minute. Objective Objective Data Details: Temperature 98? F, blood pressure 115/66, pulse of 94, respirations 22, O2 sats 91% on 2.5 L/min OxyMask General: Moderate respiratory distress. Smiles at times and makes some short sentenced small talk. Tripoding Awake, alert, oriented x3. No pallor. No jaundice. Oropharynx: Clear. Mucous membranes moist. Cardiovascular: Tachycardic, regular. Respiratory: Increased work of breathing. This improved dramatically when she had the oxygen placed in her mouth rather than through her nose. Poor air movement, unchanged. Abdomen: Bowel sounds present. Soft, nondistended, nontender. Extremities: No lower extremity edema. Assessment and Plan Assessment and plan (1) Hypercapnic respiratory failure: Problem comment: This appears to be chronic but worse, possibly due to use of opioids for pain and benzodiazepines for anxiety. Improved oxygenation via mouth, use oxymask for now. Monitor for worsening or symptoms of hypercapnea. Status: Acute (2) Small bowel obstruction: Problem comment: - 03/2022 s/p laparoscopic right hemicolectomy for endoscopically unresectable cecal polyps - 04/2022 Partial SBO, managed conservatively - 03/03/25 CT abd/pelvis: High grade SBO without transition point, possibly due to adhesions. NGT in place. Admit for SBO. Continue NGT to LIS. I have started LR @ 100cc/hr. -consult General surgery. Status: Acute (3) Chronic obstructive pulmonary disease: Problem comment: Home O2 2LPM continuously. Has chronic hypoxia requiring oxygen and chronic CO2 retention requiring caution with oxygen. - sees corporate events director at [facility] Status: Chronic (4) Protein-calorie malnutrition, severe: Problem comment: - Also diagnosed in 2022 at [facility] - suspect multifactorial: severe, chronic COPD, poor oral intake Patient has lost 9 kg/20 lb since April 2024 or approximately 2 lb a month. April 2024 she was 49 kg and now 40 kg Initiate PPN. May need TPN depending on her clinical course Status: Acute (5) Tobacco dependence: Problem comment: - nicotine patch Status: Chronic
[2025-03-06 17:31] LABS: HCO3 VBG 40 mmol/L (21-28); PO2 VBG 62.2 mmHG (25-47); pH VBG 7.361 (7.32-7.43)
[2025-03-06 17:48] LABS: PCO2 VBG 70 mmHG (40-50)
--- NOTE | 2025-03-06 19:44 | PC.NURSE ---
End of shift [id number] - Pt alert, oriented, cooperative. Up with standby assistance, noted to have increased WOB and decreased O2 saturation with any exertion. Pt able to recover after significant amount of time. Tolerating NG tube clamping and advance of diet to clears per MD. Pt reported intermittent abdominal pain with movement, given medication per MAR with behavior indicating improvement. Originally tolerating O2 via nasal cannula, switched to oxymask to improve oxygenation and at report of pt feeling congested. O2 saturations improved with switch. Noted to sleep during shift, family at bedside. Pt appears to be resting comfortably at end of shift.
[2025-03-06] MEDS: ENOXAPARIN 30 MG/0.3ML INJ SUBCUT (20:23)
[2025-03-06] MEDS: NICOTINE 14 mg PATCH 1 PATCH TRANSDERMA (22:07)
[2025-03-06] MEDS: ALBUTEROL INHALER 2 PUFF IH (22:28)
[2025-03-07] VITALS (13 sets, daily range): BP systolic 79–126; BP diastolic 47–73; PULSE 84–144; RESP 15–23; TEMP 36.3–37.1; O2SAT 84–97
[2025-03-07] MEDS: HYDROmorphone 0.5 mg/0.5 ml inj IVP ×3 (01:40→14:38)
[2025-03-07] MEDS: hydrOXYzine pamoate 25 MG CAPSULE 50 MG PO (01:40)
[2025-03-07] MEDS: IPRAT-ALBUT 0.5-2.5 MG/3 ML NEB 1 NEB IH ×3 (02:06→14:31)
[2025-03-07 04:15] LABS: Prealbumin 16.7 mg/dL (20.0-40.0)
--- NOTE | 2025-03-07 05:16 | PC.NURSE ---
[id number] Pt had 1 moderate loose BM during the evening, making yesterdays total to 3 BM's. denies N/V, abd pain 12/03, denies any pain anywhre else. does not tolerate activity very well, desats into the 70's rapidly and takes quit a while to get sats back to upper 80's, pt denies being light headed or dizzy during episodes, does had a lot of anxiety.
[2025-03-07 06:21] LABS: HCO3 VBG 42 mmol/L (21-28); PO2 VBG 60.8 mmHG (25-47); pH VBG 7.353 (7.32-7.43)
[2025-03-07 06:24] LABS: PCO2 VBG 76 mmHG (40-50)
[2025-03-07 06:39] LABS: Chloride* 95 mmol/L (96-114); Potassium* 3.9 mmol/L (3.6-5.1); Sodium* 135 mmol/L (135-149)
[2025-03-07 06:42] LABS: Alanine Aminotransferase* 133 U/L (4-35); Alkaline Phosphatase* 40 U/L (40-150); Aspartate Amino Transferase* 83 U/L (12-35); Bilirubin Total* 0.5 mg/dL (0.1-1.5); Blood Urea Nitrogen* 27 mg/dL (7-30); Creatinine* 0.5 mg/dL (0.5-1.5); Est. Creatinine Clearance* 34.99; Estimated Glomerular Filt Rate 100 ml/min; Phosphorus* 2.6 mg/dL (2.5-4.5); Total Protein* 5.4 g/dL (6.0-8.3)
[2025-03-07 06:43] LABS: Calcium* 8.9 mg/dL (8.4-10.6); Glucose* 133 mg/dL (60-115); Magnesium* 1.9 mg/dL (1.5-2.6)
--- NOTE | 2025-03-07 06:46 | P.IMPN_ITS ---
Assessment and Plan Assessment and plan (1) Acute on chronic respiratory failure with hypoxia and hypercapnia: Problem comment: Patient with chronic severe O2 dependent COPD with ongoing episodes of hypoxia and hypercapnia. Exacerbated by chronic benzodiazepine and acute opioid use in the hospital and also by bowel obstruction. Status: Acute (2) Protein-calorie malnutrition, severe: Problem comment: - Also diagnosed in 2022 at [facility] - suspect multifactorial: severe, chronic COPD, poor oral intake Patient has lost 9 kg/20 lb since April 2024 or approximately 2 lb a month. April 2024 she was 49 kg and now 40 kg Initiate PPN. May need TPN depending on her clinical course Status: Acute (3) Small bowel obstruction: Problem comment: - 03/2022 s/p laparoscopic right hemicolectomy for endoscopically unresectable cecal polyps - 04/2022 Partial SBO, managed conservatively - 03/03/25 CT abd/pelvis: High grade SBO without transition point, possibly due to adhesions. NGT in place. Admit for SBO. Continue NGT to LIS. Ongoing medical management. Patient is a very poor candidate for surgery. Status: Acute (4) Generalized anxiety disorder: Problem comment: On chronic lorazepam Status: Chronic Plan Continue in hospital for management of small bowel obstruction and respiratory failure. Plan of care discussed with patient and family and other providers. Total Time Spent Total Time Spent: Total time spent on March 06 is 40 minutes in coordination of care and discussion with patient family and other providers about ongoing management Subjective Date Seen: 03/06/25 Interval history: Bianca Wang is a 69 year old female who has oxygen dependent COPD and h/o SBO and irritable bowel syndrome who came in through the ER for abdominal pain. The patient is very [place] and sleepy from pain medications, so her daughter, Jenni, who is with her, gives the history. Jenni tells me that Bianca had masses on her colonoscopy a few years ago and had to have part of her colon removed. A week later, she developed a SBO for which she was in our hospital for a while. Since then, Jenni says, Bianca has had intermittent nausea and problems eating. Bianca doesn't like going to doctors and has been worried that she will have to have surgery again, which she is scared will kill her, so she has not gone to a doctor for these symptoms. Since November or December, Jenni has noticed a big decline. Bianca doesn't go out much anymore and gave up driving. She is eating very little, complains of nausea, and is losing a lot of weight and muscle mass. She has intermittent diarrhea and constipation. Yesterday, Bianca started having severe diffuse abdominal pain which has been constant and is associated with nausea and vomiting. She hasn't been able to eat or drink anything since this started. She denies fever or chills, CP, worsening SOB, melena or hematochezia. 03/04/2025: Patient had NG tube placed. Receiving IV fluids and IV pain medication. She reports her breathing is at baseline. She seems to tolerate oxygen at about 1-2 L per nasal cannula though does desaturate especially after receiving pain medications. Pain is adequately managed. 03/05/2025: Patient is seen in followup of respiratory failure and small-bowel obstruction. She reports that she slept well last night. She has not had any notable dyspnea. She has had improvement in her abdominal pain. Gastrografin x-ray shows that contrast went through to her colon. Early this morning her blood gas showed a pH of 7.29 and a pCO2 of 84. She was on 2 L per nasal cannula when this was drawn. I went to see her and she reported feeling fine without dyspnea. When I saw her her O2 sat was in the upper 80s. She was transferred to the CCU in anticipation of noninvasive ventil atory support. She received a nebulizer and over the next hour she had marked improvement in her respiratory status. No bowel movement. 03/06/2025: Yesterday she had her NG tube clamped but she will in tolerated this for a few hours before needing it reconnected. She has past minimal amount of gas and this morning did have a small bowel movement. NG tube was clamped again and she tolerated it better. No significant abdominal pain this morning. She did have an episode of low-grade fever and dyspnea last night. She continues to have episodes where she desaturates into the 70s with any activity. Exam Narrative: Exam Narrative: She is alert and oriented to her circumstances. Mild increased work of breathing at rest. Pursed lip breathing noted. Respirations with marked decreased breath sounds, prolonged expiration phase, no wheezing rales or rhonchi. Cardiovascular: S1, S2, regular rate and rhythm. Abdomen: Bowel sounds are present. Abdomen is soft without significant tenderness. She does have some voluntary guarding. Extremities without edema. Good peripheral perfusion. Const: Vital Signs, click to edit/add: Vital Signs - 24 hr 03/06/25 07:00 03/06/25 07:00 03/06/25 11:00 Temperature 99.5 F Pulse Rate [Right Pulse Oximeter] 92 87 Respiratory Rate 20 20 20 Blood Pressure [Le ft Arm] Blood Pressure [Ri ght Arm] 108/70 Pulse Oximetry 88 88 91 Oxygen Delivery Me thod Nasal Cannula Nasal Cannula Room Air Oxygen Flow Rate 2 2 03/06/25 15:00 03/06/25 17:31 03/06/25 19:00 Temperature 98.0 F 99.4 F Pulse Rate [Right Pulse Oximeter] 94 106 H Respiratory Rate 22 22 22 Blood Pressure [Le ft Arm] 115/66 Blood Pressure [Ri ght Arm] 131/62 Pulse Oximetry 91 91 92 Oxygen Delivery Me thod OxyMask OxyMask OxyMask Oxygen Flow Rate 2.5 2.5 2.5 03/06/25 23:00 03/06/25 23:00 03/06/25 23:00 Temperature 98.9 F Pulse Rate [Right Pulse Oximeter] 85 Respiratory Rate 22 20 20 Blood Pressure [Le ft Arm] 111/68 Blood Pressure [Ri ght Arm] Pulse Oximetry 92 92 Oxygen Delivery Me thod OxyMask OxyMask Oxygen Flow Rate 2 2 03/07/25 03:00 Temperature 97.6 F Pulse Rate [Right Pulse Oximeter] 113 H Respiratory Rate 22 Blood Pressure [Le ft Arm] 124/58 L Blood Pressure [Ri ght Arm] Pulse Oximetry 85 L Oxygen Delivery Me thod OxyMask Oxygen Flow Rate 3 Documenting provider has reviewed patient's vital signs: yes Labs Labs: Laboratory Results - last 24 hr 03/05/25 03/06/25 03/06/25 06:08 06:11 10:42 WBC 9.37 RBC 3.06 L Hgb 9.4 L Hct 30.3 L MCV 99 MCH 31 MCHC 31 L RDW Coeff of Riri 12.1 Plt Count 204 Neut % (Auto) 70.1 Lymph % (Auto) 20.4 [place] % (Auto) 8.1 Eos % (Auto) 1.1 Baso % (Auto) 0.2 Neut # (Auto) 6.57 Lymph # (Auto) 1.91 [place] # (Auto) 0.80 Eos # (Auto) 0.10 Baso # (Auto) 0.02 Abs Immat Gran (auto) 0.01 Imm/Tot Granulo (auto) 0.1 VBG pH VBG pCO2 VBG pO2 VBG HCO3 Carbon Dioxide 39 H Anion Gap 3 L BUN 32 H Creatinine 0.6 Estimated Creat Clear 32.56 Estimated GFR 96 Glucose 141 H Calcium 9.7 Phosphorus 2.6 Magnesium 1.9 Prealbumin 16.7 L Lab Acknowledgement Test Added 03/06/25 03/07/25 17:16 06:14 WBC RBC Hgb Hct MCV MCH MCHC RDW Coeff of Riri Plt Count Neut % (Auto) Lymph % (Auto) [place] % (Auto) Eos % (Auto) Baso % (Auto) Neut # (Auto) Lymph # (Auto) [place] # (Auto) Eos # (Auto) Baso # (Auto) Abs Immat Gran (auto) Imm/Tot Granulo (auto) VBG pH 7.361 7.353 VBG pCO2 70 H* 76 H* VBG pO2 62.2 H 60.8 H VBG HCO3 40 H 42 H Carbon Dioxide Anion Gap BUN Creatinine Estimated Creat Clear Estimated GFR Glucose Calcium Phosphorus Magnesium Prealbumin Lab Acknowledgement
[2025-03-07 06:49] LABS: Anion Gap 1 mEq/L (7-15); Carbon Dioxide* 39 mmol/L (20-32)
--- NOTE | 2025-03-07 06:59 | P.IMPN_ITS ---
Assessment and Plan Assessment and plan (1) Acute on chronic respiratory failure with hypoxia and hypercapnia: Problem comment: Patient with chronic severe O2 dependent COPD with ongoing episodes of hypoxia and hypercapnia. Exacerbated by chronic benzodiazepine and acute opioid use in the hospital and also by bowel obstruction. Status: Acute (2) Protein-calorie malnutrition, severe: Problem comment: - Also diagnosed in 2022 at [facility] This is caused by pulmonary cachexia and chronic abdominal pain of uncertain etiology. Patient has lost 9 kg/20 lb since April 2024 or approximately 2 lb a month. April 2024 she was 49 kg and now 40 kg Initiate PPN. Stop PPN when adequate oral nutrition Status: Acute (3) Small bowel obstruction: Problem comment: - 03/2022 s/p laparoscopic right hemicolectomy for endoscopically unresectable cecal polyps - 04/2022 Partial SBO, managed conservatively - 03/03/25 CT abd/pelvis: High grade SBO without transition point, possibly due to adhesions. NG tube removed on March 07. Advanced diet. Ongoing medical management. Patient is a very poor candidate for surgery. Status: Acute (4) Generalized anxiety disorder: Problem comment: On chronic lorazepam Status: Chronic (5) Tobacco use disorder: Problem comment: Urge smoking cessation. Status: Acute Plan 69-year-old female who is admitted with small-bowel obstruction now clinically improving. Still having some symptoms of abdominal pain and fullness but beginning to tolerate an oral diet. Antegrade function present as evidence by bowel movements. Continue to urge improved nutrition. Severe COPD with plan of care outlined above, oxygen at 2 L per nasal cannula at rest and increased to 4 L with activity. Total Time Spent Total Time Spent: Total time spent today is 60 minutes in coordination of care and discussing with patient, family and multiple other providers ongoing plan of care for small- bowel obstruction, severe COPD, severe malnutrition Subjective Date Seen: 03/07/25 Interval history: Bianca Wang is a 69 year old female who has oxygen dependent COPD and h/o SBO and irritable bowel syndrome who came in through the ER for abdominal pain. The patient is very [place] and sleepy from pain medications, so her daughter, Jenni, who is with her, gives the history. Jenni tells me that Bianca had masses on her colonoscopy a few years ago and had to have part of her colon removed. A week later, she developed a SBO for which she was in our hospital for a while. Since then, Jenni says, Bianca has had intermittent nausea and problems eating. Bianca doesn't like going to doctors and has been worried that she will have to have surgery again, which she is scared will kill her, so she has not gone to a doctor for these symptoms. Since November or December, Jenni has noticed a big decline. Bianca doesn't go out much anymore and gave up driving. She is eating very little, complains of nausea, and is losing a lot of weight and muscle mass. She has intermittent diarrhea and constipation. Yesterday, Bianca started having severe diffuse abdominal pain which has been constant and is associated with nausea and vomiting. She hasn't been able to eat or drink anything since this started. She denies fever or chills, CP, worsening SOB, melena or hematochezia. 03/04/2025: Patient had NG tube placed. Receiving IV fluids and IV pain medication. She reports her breathing is at baseline. She seems to tolerate oxygen at about 1-2 L per nasal cannula though does desaturate especially after receiving pain medications. Pain is adequately managed. 03/05/2025: Patient is seen in followup of respiratory failure and small-bowel obstruction. She reports that she slept well last night. She has not had any notable dyspnea. She has had improvement in her abdominal pain. Gastrografin x-ray shows that contrast went through to her colon. Early this morning her blood gas showed a pH of 7.29 and a pCO2 of 84. She was on 2 L per nasal cannula when this was drawn. I went to see her and she reported feeling fine without dyspnea. When I saw her her O2 sat was in the upper 80s. She was transferred to the CCU in anticipation of noninvasive ventilatory support. She received a nebulizer and over the next hour she had marked improvement in her respiratory status. No bowel movement. 03/06/2025: Yesterday she had her NG tube clamped but she will in tolerated this for a few hours before needing it reconnected. She has past minimal amount of gas and this morning did have a small bowel movement. NG tube was clamped again and she tolerated it better. No significant abdominal pain this morning. She did have an episode of low-grade fever and dyspnea last night. She continues to have episodes where she desaturates into the 70s with any activity. 03/07/2025: Patient reports still having some ongoing abdominal pain. She has had 3 small diarrhea stools. She reports her breathing is close to baseline. Last evening she had a crisis of dyspnea and hypoxia. See Dr. Pulido notes for details. Through this hospital stay she has had ongoing episodes where she will desaturate into the 70s with any activity. We have recommended that she increase her oxygen during these episodes and for few minutes afterwards until she catches up with her breathing. She is to have no more than 2 L per nasal cannula at rest due to her chronic CO2 retention. This morning her NG tube was removed. She is tolerating that fairly well. Her diet has been advanced and she is very slowly taking in some Ensure. She reports essentially no appetite. I spoke with her insole cementer today. He agrees with the plan to allow increased oxygen with activity and limit to 2 L per nasal cannula at rest. He also is concerned that she has pulmonary cachexia as a contributor to her weight loss. He notes he is continuing to encourage smoking cessation. We also talked about palliative care for her pulmonary status and he is in agreement with that as well. Exam Narrative: Exam Narrative: She is alert and appears relatively comfortable at rest. Mild increased rate of breathing. Pursed lip breathing. Respirations with marked decreased breath sounds. No wheezing. Cardiovascular: S1, S2, regular rate and rhythm. Abdomen: Bowel sounds active. Abdomen is soft with mild diffuse tenderness. Const: Vital Signs, click to edit/add: Vital Signs - 24 hr 03/06/25 07:00 03/06/25 07:00 03/06/25 11:00 Temperature 99.5 F Pulse Rate [Right Pulse Oximeter] 92 87 Respiratory Rate 20 20 20 Blood Pressure [Le ft Arm] Blood Pressure [Ri ght Arm] 108/70 Pulse Oximetry 88 88 91 Oxygen Delivery Me thod Nasal Cannula Nasal Cannula Room Air Oxygen Flow Rate 2 2 03/06/25 15:00 03/06/25 17:31 03/06/25 19:00 Temperature 98.0 F 99.4 F Pulse Rate [Right Pulse Oximeter] 94 106 H Respiratory Rate 22 22 22 Blood Pressure [Le ft Arm] 115/66 Blood Pressure [Ri ght Arm] 131/62 Pulse Oximetry 91 91 92 Oxygen Delivery Me thod OxyMask OxyMask OxyMask Oxygen Flow Rate 2.5 2.5 2.5 03/06/25 23:00 03/06/25 23:00 03/06/25 23:00 Temperature 98.9 F Pulse Rate [Right Pulse Oximeter] 85 Respiratory Rate 22 20 20 Blood Pressure [Le ft Arm] 111/68 Blood Pressure [Ri ght Arm] Pulse Oximetry 92 92 Oxygen Delivery Me thod OxyMask OxyMask Oxygen Flow Rate 2 2 03/07/25 03:00 Temperature 97.6 F Pulse Rate [Right Pulse Oximeter] 113 H Respiratory Rate 22 Blood Pressure [Le ft Arm] 124/58 L Blood Pressure [Ri ght Arm] Pulse Oximetry 85 L Oxygen Delivery Me thod OxyMask Oxygen Flow Rate 3 Documenting provider has reviewed patient's vital signs: yes Labs Labs: Laboratory Results - last 24 hr 03/05/25 03/06/25 03/06/25 06:08 06:11 10:42 WBC 9.37 RBC 3.06 L Hgb 9.4 L Hct 30.3 L MCV 99 MCH 31 MCHC 31 L RDW Coeff of Riri 12.1 Plt Count 204 Neut % (Auto) 70.1 Lymph % (Auto) 20.4 [place] % (Auto) 8.1 Eos % (Auto) 1.1 Baso % (Auto) 0.2 Neut # (Auto) 6.57 Lymph # (Auto) 1.91 [place] # (Auto) 0.80 Eos # (Auto) 0.10 Baso # (Auto) 0.02 Abs Immat Gran (auto) 0.01 Imm/Tot Granulo (auto) 0.1 VBG pH VBG pCO2 VBG pO2 VBG HCO3 Sodium Potassium Chloride Carbon Dioxide Anion Gap BUN Creatinine Estimated Creat Clear Estimated GFR Glucose Calcium Phosphorus Magnesium Total Bilirubin AST ALT Alkaline Phosphatase Total Protein Albumin Prealbumin 16.7 L Lab Acknowledgement Test Added 03/06/25 03/07/25 17:16 06:14 WBC RBC Hgb Hct MCV MCH MCHC RDW Coeff of Riri Plt Count Neut % (Auto) Lymph % (Auto) [place] % (Auto) Eos % (Auto) Baso % (Auto) Neut # (Auto) Lymph # (Auto) [place] # (Auto) Eos # (Auto) Baso # (Auto) Abs Immat Gran (auto) Imm/Tot Granulo (auto) VBG pH 7.361 7.353 VBG pCO2 70 H* 76 H* VBG pO2 62.2 H 60.8 H VBG HCO3 40 H 42 H Sodium 135 Potassium 3.9 Chloride 95 L Carbon Dioxide 39 H Anion Gap 1 L BUN 27 Creatinine 0.5 Estimated Creat Clear 34.99 Estimated GFR 100 Glucose 133 H Calcium 8.9 Phosphorus 2.6 Magnesium 1.9 Total Bilirubin 0.5 AST 83 H ALT 133 H Alkaline Phosphatase 40 Total Protein 5.4 L Albumin 3.0 L Prealbumin Lab Acknowledgement
[2025-03-07] MEDS: ONDANSETRON 2 MG/ML inj 4 MG IVP ×2 (07:55→19:05)
[2025-03-07] MEDS: LORazepam 1 MG TABLET PO (08:45)
--- NOTE | 2025-03-07 09:15 | PM.GSPN ---
Subjective Subjective Date Seen: 03/07/25 Interval history: Bianca is stooling and NG was removed today after doing well with her clamping trial and clears. Still with abdominal pain but she states this is close to her baseline pain. Exam Narrative: Exam Narrative: General: NAD Respiratory: breathing is non-labored but she is on face mask satting in 85%. Abdomen: soft. non-distended. mildly tender in the epigastric region. Const: Vital Signs, click to edit/add: Vital Signs - 24 hr 03/06/25 11:00 03/06/25 15:00 03/06/25 17:31 Temperature 99.5 F 98.0 F Pulse Rate [Right Pulse Oximeter] 87 94 Respiratory Rate 20 22 22 Blood Pressure [Le ft Arm] 115/66 Blood Pressure [Ri ght Arm] 108/70 Pulse Oximetry 91 91 91 Oxygen Delivery Me thod Room Air OxyMask OxyMask Oxygen Flow Rate 2.5 2.5 03/06/25 19:00 03/06/25 23:00 03/06/25 23:00 Temperature 99.4 F Pulse Rate [Right Pulse Oximeter] 106 H Respiratory Rate 22 22 20 Blood Pressure [Le ft Arm] Blood Pressure [Ri ght Arm] 131/62 Pulse Oximetry 92 92 Oxygen Delivery Me thod OxyMask OxyMask Oxygen Flow Rate 2.5 2 03/06/25 23:00 03/07/25 03:00 Temperature 98.9 F 97.6 F Pulse Rate [Right Pulse Oximeter] 85 113 H Respiratory Rate 20 22 Blood Pressure [Le ft Arm] 111/68 124/58 L Blood Pressure [Ri ght Arm] Pulse Oximetry 92 85 L Oxygen Delivery Me thod OxyMask OxyMask Oxygen Flow Rate 2 3 Progress Note:A&P Assessment and plan (1) Acute on chronic respiratory failure with hypoxia and hypercapnia: Status: Acute (2) Protein-calorie malnutrition, severe: Status: Acute (3) Small bowel obstruction: Status: Acute Plan The patient is a 69-year-old female with severe hypercapnic respiratory failure from COPD, currently still smoking, with a bowel obstruction. She appears to have return of bowel function and is tolerating clear liquids. NG removed today. Respiratory status remains tenuous -which is really her baseline. I discussed with the patient and her daughter that surgery should be avoided given her respiratory status and nutrition is poor and she may not recover. Fortunately she seems to have improved. She does have chronic abdominal pain. Unfortunately I do not have a good answer for the cause of her pain. She may need further workup as an outpatient with her primary care provider. Continue to advance diet as tolerated.
[2025-03-07] MEDS: 5 % DEXTROSE IN LAC RINGER'S 1,000 ML 50 ML IV (12:15)
[2025-03-07] MEDS: AA 4.25%/CALCIUM/LYTES/DEX 5 % 2,000 ML 65 ML IV (14:28)
[2025-03-07] MEDS: ALBUTEROL SULFATE 2.5 MG/3 ML VIAL.NEB NEB (18:44)
--- NOTE | 2025-03-07 20:17 | PC.NURSE ---
End of Shift: A&O. SpO2 maintained above 86% on 2L via Oxymask, with activity patient needed to be bumped up to 3L to recover. Patient reported pain in her abdomen this shift, managed with PRN medication, see MAR. Pt reports feeling nauseas this shift as well, managed with prn medication. PRN neb given for SOB at 1844, after approximately 15 minutes, racebook writer disconnected neb, noted pts HR was 144 and not recovering, pt asymptomatic, MD notified, EKG complete, tele initiated. Report given to RAOUL Hardy. ?
[2025-03-07] MEDS: ADENOSINE 6 MG/2ML INJ IVP (20:25)
[2025-03-07] MEDS: METOPROLOL TARTRATE 1 MG/ML inj 5 MG IVP (20:25)
[2025-03-07] MEDS: ADENOSINE 6 MG/2ML INJ 12 MG IVP (20:26)
[2025-03-07 20:33] LABS: PO2 VBG 60.2 mmHG (25-47)
[2025-03-07 20:36] LABS: Hemoglobin* 9.9 gm/dL (12.0-16.0)
[2025-03-07 20:38] LABS: PCO2 VBG > 98 mmHG (40-50)
--- NOTE | 2025-03-07 20:42 | RESP.RT ---
Patient placed on .28BiPAP /6 to get Vt of 320ml. Patient SATing 85%. Patient's respiratory drive is knocked out with SATs in th upper 80's, so her target SAT is 80-85%.
[2025-03-07 20:49] LABS: Chloride* 96 mmol/L (96-114); Potassium* 3.3 mmol/L (3.6-5.1); Sodium* 136 mmol/L (135-149)
[2025-03-07 20:52] LABS: Anion Gap 1 mEq/L (7-15); Blood Urea Nitrogen* 23 mg/dL (7-30); Calcium* 8.7 mg/dL (8.4-10.6); Carbon Dioxide* 39 mmol/L (20-32); Creatinine* 0.5 mg/dL (0.5-1.5); Est. Creatinine Clearance* 34.99; Estimated Glomerular Filt Rate 100 ml/min; Glucose* 222 mg/dL (60-115); Magnesium* 1.8 mg/dL (1.5-2.6)
[2025-03-07 21:09] LABS: Troponin I* < 0.01 ng/mL (0.01-0.04)
[2025-03-07] MEDS: 0.9 % SODIUM CHLORIDE 250 ml 250 ML IV (21:46)
--- NOTE | 2025-03-07 22:10 | P.CCN_ITS ---
Subjective Subjective Date Seen: 03/07/25 Interval history: Patient developed supraventricular tachycardia after an albuterol nebulization treatment was administered. Heart rates were as high as 180-200 beats per minute. Administered adenosine 6 mg and then 12 mg. After the 6 mg dose her heart rate went back up. After the 12 mg dose her heart rate slowed down considerably down to the 120-130 range. Meanwhile she was not able to tolerate this tachycardia and developed acute respiratory failure with increased hypoxia and hypercapnia. We started BiPAP and after short period of time she was able to tolerate this and do much better. Initial venous blood gas after stabilization with BiPAP remarkable for pH of 7.16, pCO2 98, PO2 of 60. We continue to titrate the oxygen down and will be repeating the venous blood gas shortly. Post stabilization electrocardiogram demonstrates a normal sinus rhythm without evidence of ischemia or infarct. Await repeat laboratory studies including repeat venous blood gas. Objective Objective Data Details: Patient initially interactive and responsive. During this period of time we held the jason conversations, the patient and her daughter and I. Patient expressed her desire for DNR DNI resuscitation status. She asked us to try to help her get through this episode but absolutely no resuscitation efforts. Over time she became less responsive and interactive. We are able to place her on BiPAP therapy and her heart rate improved, blood pressure improved, respiratory rate improved. Inspiratory and expiratory wheezing with distant heart tones initially. After stabilization she had better air exchange with less wheezing. Assessment and Plan Assessment and plan (1) Paroxysmal supraventricular tachycardia: Problem comment: -likely triggered by albuterol beta agonist bronchodilator therapy Status: Acute (2) Acute on chronic respiratory failure with hypoxia and hypercapnia: Problem comment: -Patient with chronic severe O2 dependent COPD with ongoing episodes of hypoxia and hypercapnia. Exacerbated by chronic benzodiazepine and acute opioid use in the hospital and also by bowel obstruction. -near respiratory arrest event on the evening of 03/07/2025 everted with BiPAP therapy and stabilization of paroxysmal supraventricular tachycardia Status: Acute (3) Pulmonary cachexia due to chronic obstructive pulmonary disease: Status: Acute (4) Very severe chronic obstructive pulmonary disease: Status: Acute Plan 1. Reviewed impression with patient and family members. 2. Established with patient and family members patient's desire for DNR DNI re suscitation status. 3. Continue with supportive efforts at this time. Continue to work closely with patient and family members. They understand the patient's condition is grave and that she may or may not survive this hospitalization. 4. Answered patient's family's questions to their satisfaction.
[2025-03-07 22:22] LABS: HCO3 VBG 38 mmol/L (21-28); PO2 VBG 34.9 mmHG (25-47); pH VBG 7.316 (7.32-7.43)
[2025-03-07 22:24] LABS: PCO2 VBG 74 mmHG (40-50)
[2025-03-07] MEDS: 0.9 % SODIUM CHLORIDE 500 ML 500 ML IV (23:15)
[2025-03-07 23:43] LABS: Albumin* 3.3 g/dL (3.3-5.0)
[2025-03-07 23:46] LABS: Alanine Aminotransferase* 158 U/L (4-35); Alkaline Phosphatase* 65 U/L (40-150); Aspartate Amino Transferase* 104 U/L (12-35); Bilirubin Direct* 0.2 mg/dL (0.0-0.5); Bilirubin Total* 0.4 mg/dL (0.1-1.5); Total Protein* 5.8 g/dL (6.0-8.3)
[2025-03-08] VITALS (17 sets, daily range): BP systolic 102–129; BP diastolic 53–80; PULSE 86–116; RESP 18–24; TEMP 36.4–37.6; O2SAT 84–95
[2025-03-08] MEDS: NICOTINE 14 mg PATCH 1 PATCH TRANSDERMA ×3 (01:00→22:02)
[2025-03-08] MEDS: BUDESONIDE 0.5 MG/2ML NEB NEB ×3 (01:02→20:28)
[2025-03-08] MEDS: POTASSIUM CHLORIDE 10 MEQ/100 ML PIGGYBACK 100 MEQ IVPB ×2 (01:35→03:09)
[2025-03-08] MEDS: LORazepam 1 MG TABLET PO ×3 (02:49→20:27)
[2025-03-08] MEDS: 0.9 % SODIUM CHLORIDE 250 ml IV (05:45)
[2025-03-08 06:51] LABS: HCO3 VBG 37 mmol/L (21-28); PCO2 VBG 53 mmHG (40-50); PO2 VBG 45.3 mmHG (25-47); pH VBG 7.459 (7.32-7.43)
--- NOTE | 2025-03-08 07:18 | CRLHL7_ITS ---
For Patients: As a result of the Century Cures Act, medical imaging exams and procedure reports are released immediately into your electronic medical record. You may view this report before your referring provider. If you have questions, please contact your health care provider. Indication: Respiratory failure Technique: Chest 1 view Comparison: Chest x-ray 03/05/2025 Findings/Impression: Cardiovascular and mediastinum: Normal heart size with atherosclerotic calcification. Lungs and pleural space: Trace right pleural effusion with new consolidation in the right lung base suggestive of pneumonia. No pneumothorax. Bones and soft tissues: Right upper quadrant surgical clips. Dictated by Jesus Rosas MD @ 03/08/2025 7:59:08 AM (Electronically Signed)
[2025-03-08 07:40] LABS: Basophils Percent Auto 0.2 % (0.0-3.0); Eosinophils Percent Auto 1.3 % (0.0-7.0); Hematocrit 27.8 % (33.0-51.0); Hemoglobin* 8.9 gm/dL (12.0-16.0); Immature Granulocytes Pct Auto 0.3 %; Lymphocytes Percent Auto 16.5 % (20-44); Mean Corpuscular HGB Conc 32 gm/dL (32-36); Mean Corpuscular Hemoglobin 31 pg (26-34); Mean Corpuscular Volume 98 fL (80-100); Monocytes Percent Auto 7.9 % (0.0-11.0); Neutrophils Percent Auto 73.8 % (42.0-72.0); Platelet Count* 166 K/uL (140-440); RDW Coefficient of Variation % 12.1 % (11.5-15.5); Red Blood Count 2.84 m/uL (4.00-5.20); White Blood Count* 11.42 K/uL (4.50-11.00)
[2025-03-08 07:42] LABS: Chloride* 97 mmol/L (96-114); Sodium* 134 mmol/L (135-149)
[2025-03-08 07:43] LABS: Potassium* 3.5 mmol/L (3.6-5.1)
[2025-03-08 07:45] LABS: Anion Gap 1 mEq/L (7-15); Blood Urea Nitrogen* 20 mg/dL (7-30); Carbon Dioxide* 36 mmol/L (20-32); Creatinine* 0.5 mg/dL (0.5-1.5); Est. Creatinine Clearance* 34.99; Estimated Glomerular Filt Rate 100 ml/min
[2025-03-08 07:46] LABS: Calcium* 8.8 mg/dL (8.4-10.6); Glucose* 116 mg/dL (60-115); Magnesium* 1.9 mg/dL (1.5-2.6); Phosphorus* 1.6 mg/dL (2.5-4.5)
[2025-03-08] MEDS: METHYLPREDNISOLONE SOD SUCC 62.5 MG/ML (125) 125 MG IVP (07:47)
[2025-03-08 07:49] LABS: Slide Review Reflex No
[2025-03-08 07:58] LABS: Troponin I* 0.03 ng/mL (0.01-0.04)
--- NOTE | 2025-03-08 08:08 | PC.NURSE ---
At shift change (1900) Pt was tachycardic. Staff obtained 12 lead. Pt was 180-200's for heart rate; SVT. decided to administer adenosine x 2 see EMAR?for intervention. Pt was also placed on BiPAP after administration by RT. Pt changed to unit status care taken over by inspector automatic typewriter. Pt was asleep from [id number]. Pt?s BP were low; MD updated. Pt started to become more alert after midnight. MD spoke with family about next steps. MD ordered fluid bolus x 2 and then a Norepinephrine drip. Once able to start the drip Pt?s BP?s had improved; [facility] consulted Per MD Adhikari do not start drip and family and Pt in agreement with this plan. Pt?s oxygen goals per MD and RT are to maintain saturations 80-88%; Pt able to maintain these all shift on BiPAP see EHR for settings. ?
[2025-03-08] MEDS: HYDROmorphone 2 MG TABLET PO ×2 (09:32→19:05)
[2025-03-08] MEDS: MEROPENEM 1 GM in 0.9 % SODIUM CHLORIDE Mini-bag 100 ML IVPB ×2 (09:36→22:01)
[2025-03-08] MEDS: ONDANSETRON 2 MG/ML inj 4 MG IVP ×2 (09:37→19:05)
[2025-03-08] MEDS: SODIUM CHLORIDE 0.9 % (FLUSH) 10 ML SYRINGE 5 ML IVF ×2 (09:38→20:30)
[2025-03-08] MEDS: THIAMINE 100 MG TABLET PO (09:41)
[2025-03-08] MEDS: Fluticasone-Umeclidin-Vilanter [Trelegy Ellipta] 200-62.5-25 mcg 1 EACH IH (09:57)
[2025-03-08] MEDS: VANCOMYCIN 1 GM/200 ML 1 GM/200 ML PIGGYBACK IVPB (10:15)
--- NOTE | 2025-03-08 12:34 | PM.IMPN1 ---
Assessment and Plan Assessment and plan (1) Acute on chronic respiratory failure with hypoxia and hypercapnia: Problem comment: -Patient with chronic severe O2 dependent COPD with ongoing episodes of hypoxia and hypercapnia. Exacerbated by chronic benzodiazepine and acute opioid use in the hospital and also by bowel obstruction. -near respiratory arrest event on the evening of 03/07/2025 everted with BiPAP therapy and stabilization of paroxysmal supraventricular tachycardia. Found to have right lower lobe pneumonia which is probably due to aspiration. Initiate meropenem and vancomycin for hospital-acquired pneumonia. MRSA swab pending. Improved on BiPAP. Do not intubate status reaffirmed on 03/08/2025 Status: Acute (2) Pneumonia: Problem comment: New right lower lobe pneumonia likely developed last night with her episode of SVT and acute respiratory failure. Initiate vancomycin and meropenem for hospital-acquired pneumonia Status: Acute (3) Small bowel obstruction: Problem comment: - 03/2022 s/p laparoscopic right hemicolectomy for endoscopically unresectable cecal polyps - 04/2022 Partial SBO, managed conservatively - 03/03/25 CT abd/pelvis: High grade SBO without transition point, possibly due to adhesions. NG tube removed on March 07. Advanced diet. Ongoing medical management. Patient is a very poor candidate for surgery. Clinically slowly improving. Still having ongoing abdominal pain which is an acute on chronic problem Status: Acute (4) Protein-calorie malnutrition, severe: Problem comment: - Also diagnosed in 2022 at [facility] This is caused by pulmonary cachexia and chronic abdominal pain of uncertain etiology. Patient has lost 9 kg/20 lb since April 2024 or approximately 2 lb a month. April 2024 she was 49 kg and now 40 kg Initiate PPN. Stop PPN when adequate oral nutrition. Status: Acute (5) Pulmonary cachexia due to chronic obstructive pulmonary disease: Problem comment: Her system safety engineer believes this is a contributor to her overall malnutrition Status: Acute (6) Paroxysmal supraventricular tachycardia: Problem comment: -likely triggered by albuterol beta agonist bronchodilator therapy. Status: Acute (7) Generalized anxiety disorder: Problem comment: On chronic lorazepam Status: Chronic (8) Pulmonary hypertension: Problem comment: Echocardiogram from March 2022 showed severe pulmonary hypertension with right-sided pressure of 51 mmHg plus right atrial pressure. Repeat echo Status: Chronic (9) Tobacco use disorder: Problem comment: Urge smoking cessation. Status: Acute (10) Very severe chronic obstructive pulmonary disease: Problem comment: Patient has been felt to have severe COPD which has been relatively stable until last night. Now started on systemic steroids due to exacerbation. Status: Acute Plan Continue in hospital CCU status for management of hypoxic and hypercarbic respiratory failure due to COPD and pneumonia, malnutrition managed with PPN pending adequate oral intake, abdominal pain and small-bowel obstruction, Total Time Spent Total Time Spent: Total time spent today is 90 minutes in critical care evaluation and management. Subjective Date Seen: 03/08/25 Interval history: Bianca Wang is a 69 year old female who has oxygen dependent COPD and h/o SBO and irritable bowel syndrome who came in through the ER for abdominal pain. The patient is very [place] and sleepy from pain medications, so her daughter, Jenni, who is with her, gives the history. Jenni tells me that Bianca had masses on her colonoscopy a few years ago and had to have part of her colon removed. A week later, she developed a SBO for which she was in our hospital for a while. Since then, Jenni says, Bianca has had intermittent nausea and problems eating. Bianca doesn't like going to doctors and has been worried that she will have to have surgery again, which she is scared will kill her, so she has not gone to a doctor for these symptoms. Since November or December, Jenni has noticed a big decline. Bianca doesn't go out much anymore and gave up driving. She is eating very little, complains of nausea, and is losing a lot of weight and muscle mass. She has intermittent diarrhea and constipation. Yesterday, Bianca started having severe diffuse abdominal pain which has been constant and is associated with nausea and vomiting. She hasn't been able to eat or drink anything since this started. She denies fever or chills, CP, worsening SOB, melena or hematochezia. 03/04/2025: Patient had NG tube placed. Receiving IV fluids and IV pain medication. She reports her breathing is at baseline. She seems to tolerate oxygen at about 1-2 L per nasal cannula though does desaturate especially after receiving pain medications. Pain is adequately managed. 03/05/2025: Patient is seen in followup of respiratory failure and small-bowel obstruction. She reports that she slept well last night. She has not had any notable dyspnea. She has had improvement in her abdominal pain. Gastrografin x-ray shows that contrast went through to her colon. Early this morning her blood gas showed a pH of 7.29 and a pCO2 of 84. She was on 2 L per nasal cannula when this was drawn. I went to see her and she reported feeling fine without dyspnea. When I saw her her O2 sat was in the upper 80s. She was transferred to the CCU in anticipation of noninvasive ventilatory support. She received a nebulizer and over the next hour she had marked improvement in her respiratory status. No bowel movement. 03/06/2025: Yesterday she had her NG tube clamped but she will in tolerated this for a few hours before needing it reconnected. She has past minimal amount of gas and this morning did have a small bowel movement. NG tube was clamped again and she tolerated it better. No significant abdominal pain this morning. She did have an episode of low-grade fever and dyspnea last night. She continues to have episodes where she desaturates into the 70s with any activity. 03/07/2025: Patient reports still having some ongoing abdominal pain. She has had 3 small diarrhea stools. She reports her breathing is close to baseline. Last evening she had a crisis of dyspnea and hypoxia. See Dr. Pulido notes for details. Through this hospital stay she has had ongoing episodes where she will desaturate into the 70s with any activity. We have recommended that she increase her oxygen during these episodes and for few minutes afterwards until she catches up with her breathing. She is to have no more than 2 L per nasal cannula at rest due to her chronic CO2 retention. This morning her NG tube was removed. She is tolerating that fairly well. Her diet has been advanced and she is very slowly taking in some Ensure. She reports essentially no appetite. I spoke with her system safety engineer today. He agrees with the plan to allow increased oxygen with activity and limit to 2 L per nasal cannula at rest. He also is concerned that she has pulmonary cachexia as a contributor to her weight loss. He notes he is continuing to encourage smoking cessation. We also talked about palliative care for her pulmonary status and he is in agreement with that as well. 03/08/2025: Last night patient developed SVT with a heart rate of 180-200. She was treated with adenosine 6 mg and 12 mg. This improved but did not resolve her tachycardia with her heart rate getting down to 120. She received metoprolol. She developed progressive respiratory failure and was placed on BiPAP. Blood pressure was soft and she was given metoprolol. She became hypotensive and norepinephrine was ordered but before it was initiated her blood pressure improved. She did not receive the norepinephrine. She did well on the BiPAP overnight. Respiratory status has substantially improved. This morning she remains on BiPAP. She had some food to eat last night. She reports no appetite and ongoing abdominal pain which she thinks is worsened by eating. She is passing gas but has not had a bowel movement since yesterday. Today we reaffirmed her code status of DNR DNI. This was done with the patient her daughter that she lives with and her granddaughter and Dr. Brooks as we reviewed her serious illness. She is still seeking medical treatment with a goal of returning home with her daughter. We also discussed managing her pain and anxiety and dyspnea which are her most prominent and troublesome symptoms. We talked about how her lorazepam and morphine are set beneficial for symptom control but provide some risk for respiratory depression. Exam Narrative: Exam Narrative: She is alert oriented to her circumstances. She is breathing on BiPAP. Mildly increased work of breathing. Respirations with marked diminished breath sounds. No obvious wheezes or crackles are noted. Cardiovascular: S1, S2, regular rate and rhythm. Abdomen: Bowel sounds active. Abdomen is soft with mild diffuse tenderness. Extremities without edema. Const: Vital Signs, click to edit/add: Vital Signs - 24 hr 03/07/25 15:00 03/07/25 15:00 03/07/25 15:45 Temperature 98.8 F Pulse Rate Pulse Rate [Right Pulse Oximeter] 102 H 102 H Respiratory Rate 20 20 20 Blood Pressure [Le ft Arm] 105/47 L Pulse Oximetry 89 89 Oxygen Delivery Me thod OxyMask OxyMask Oxygen Flow Rate 2 2 Fraction of Inspir ed Oxygen 03/07/25 18:58 03/07/25 20:19 03/07/25 20:41 Temperature 97.3 F L Pulse Rate Pulse Rate [Right Pulse Oximeter] 144 H 95 Respiratory Rate 15 Blood Pressure [Le ft Arm] 126/73 Pulse Oximetry 84 L Oxygen Delivery Me thod BiPAP Oxygen Flow Rate Fraction of Inspir ed Oxygen 0.28 03/07/25 21:16 03/07/25 22:10 03/07/25 23:14 Temperature 98.4 F Pulse Rate 96 Pulse Rate [Right Pulse Oximeter] 92 Respiratory Rate 23 23 Blood Pressure [Le ft Arm] 85/58 L Pulse Oximetry 85 L 87 L Oxygen Delivery Me thod BiPAP BiPAP Oxygen Flow Rate Fraction of Inspir ed Oxygen 0.28 03/07/25 23:15 03/07/25 23:18 03/08/25 00:45 Temperature 98.7 F Pulse Rate 84 Pulse Rate [Right Pulse Oximeter] 86 Respiratory Rate 20 Blood Pressure [Le ft Arm] 79/47 L 105/64 Pulse Oximetry 86 L Oxygen Delivery Me thod BiPAP Oxygen Flow Rate 28 Fraction of Inspir ed Oxygen 0.28 03/08/25 03:00 03/08/25 03:18 03/08/25 05:43 Temperature 98.2 F 99.0 F Pulse Rate 89 Pulse Rate [Right Pulse Oximeter] 94 91 Respiratory Rate 18 19 Blood Pressure [Le ft Arm] 105/58 L 102/56 L Pulse Oximetry 85 L 84 L Oxygen Delivery Me thod BiPAP BiPAP Oxygen Flow Rate Fraction of Inspir ed Oxygen 03/08/25 07:00 03/08/25 07:00 03/08/25 07:00 Temperature 99.7 F H Pulse Rate Pulse Rate [Right Pulse Oximeter] 94 94 Respiratory Rate 19 19 19 Blood Pressure [Le ft Arm] 123/65 Pulse Oximetry 91 91 Oxygen Delivery Me thod BiPAP BiPAP Oxygen Flow Rate 35 30 Fraction of Inspir ed Oxygen 0.28 0.28 03/08/25 07:00 03/08/25 11:13 Temperature Pulse Rate 100 Pulse Rate [Right Pulse Oximeter] 105 H Respiratory Rate 20 Blood Pressure [Le ft Arm] 121/80 Pulse Oximetry 94 Oxygen Delivery Me thod BiPAP Oxygen Flow Rate 35 Fraction of Inspir ed Oxygen Labs Labs: Laboratory Results - last 24 hr 03/07/25 03/07/25 03/07/25 20:30 22:12 23:23 WBC RBC Hgb 9.9 L Hct MCV MCH MCHC RDW Coeff of Riri Plt Count Neut % (Auto) Lymph % (Auto) [place] % (Auto) Eos % (Auto) Baso % (Auto) Neut # (Auto) Lymph # (Auto) [place] # (Auto) Eos # (Auto) Baso # (Auto) Abs Immat Gran (auto) Imm/Tot Granulo (auto) VBG pH 7.160 L* 7.316 L VBG pCO2 > 98 H* 74 H* VBG pO2 60.2 H 34.9 VBG HCO3 38 H Sodium 136 Potassium 3.3 L Chloride 96 Carbon Dioxide 39 H Anion Gap 1 L BUN 23 Creatinine 0.5 Estimated Creat Clear 34.99 Estimated GFR 100 Glucose 222 H Calcium 8.7 Phosphorus Magnesium 1.8 Total Bilirubin 0.4 Direct Bilirubin 0.2 AST 104 H ALT 158 H Alkaline Phosphatase 65 Troponin I < 0.01 Total Protein 5.8 L Albumin 3.3 Lab Acknowledgement Test Added 03/08/25 06:23 WBC 11.42 H RBC 2.84 L Hgb 8.9 L Hct 27.8 L MCV 98 MCH 31 MCHC 32 RDW Coeff of Riri 12.1 Plt Count 166 Neut % (Auto) 73.8 H Lymph % (Auto) 16.5 L [place] % (Auto) 7.9 Eos % (Auto) 1.3 Baso % (Auto) 0.2 Neut # (Auto) 8.40 H Lymph # (Auto) 1.90 [place] # (Auto) 0.90 Eos # (Auto) 0.10 Baso # (Auto) 0.00 Abs Immat Gran (auto) 0.00 Imm/Tot Granulo (auto) 0.3 VBG pH 7.459 H VBG pCO2 53 H VBG pO2 45.3 VBG HCO3 37 H Sodium 134 L Potassium 3.5 L Chloride 97 Carbon Dioxide 36 H Anion Gap 1 L BUN 20 Creatinine 0.5 Estimated Creat Clear 34.99 Estimated GFR 100 Glucose 116 H Calcium 8.8 Phosphorus 1.6 L Magnesium 1.9 Total Bilirubin Direct Bilirubin AST ALT Alkaline Phosphatase Troponin I 0.03 Total Protein Albumin Lab Acknowledgement Imaging Chest x-ray: Attestation: I have reviewed the pertinent imaging results. (New right lower lobe infiltrate)
--- NOTE | 2025-03-08 13:26 | RESP.RT ---
Patient was on BiPAP most of the night. She has been able to be off while awake, but should wear BiPAP while she is resting. Patient and family have refused neb treatments and have been noncompliant with other treatments. We have discussed the importance of following treatment plans, but also these are her choices and how what the choices she makes today will determine how her body responds going forward.
[2025-03-08] MEDS: 5 % DEXTROSE IN LAC RINGER'S 1,000 ML 50 ML IV (14:37)
[2025-03-08] MEDS: AA 4.25%/CALCIUM/LYTES/DEX 5 % 2,000 ML 65 ML IV (14:37)
--- NOTE | 2025-03-08 14:58 | PC.SOCIAL ---
Discharge planning: renal social worker attempted to meet with pt and her daughter this afternoon, but pt was having an echocardiogram test done. renal social worker will try to attempt to meet with the pt before the end of the day. From the provider on duty's note it looks like the pt would really like to be able to return back to living with her daughter at discharge. Social work to follow-up as needed.
[2025-03-08] MEDS: ENOXAPARIN 30 MG/0.3ML INJ SUBCUT (20:28)
[2025-03-08] MEDS: IPRAT-ALBUT 0.5-2.5 MG/3 ML NEB 1 NEB IH (20:29)
[2025-03-09] VITALS (15 sets, daily range): BP systolic 101–139; BP diastolic 60–86; PULSE 82–122; RESP 20–34; TEMP 36.7–37.4; O2SAT 90–97
[2025-03-09 06:40] LABS: HCO3 VBG 36 mmol/L (21-28); PCO2 VBG 48 mmHG (40-50); PO2 VBG 71.1 mmHG (25-47); pH VBG 7.491 (7.32-7.43)
[2025-03-09 06:45] LABS: Basophils Percent Auto 0.2 % (0.0-3.0); Eosinophils Percent Auto 1.4 % (0.0-7.0); Hematocrit 26.6 % (33.0-51.0); Hemoglobin* 8.6 gm/dL (12.0-16.0); Immature Granulocytes Pct Auto 1.1 %; Lymphocytes Percent Auto 19.2 % (20-44); Mean Corpuscular HGB Conc 32 gm/dL (32-36); Mean Corpuscular Hemoglobin 31 pg (26-34); Mean Corpuscular Volume 95 fL (80-100); Monocytes Percent Auto 7.9 % (0.0-11.0); Neutrophils Percent Auto 70.2 % (42.0-72.0); Platelet Count* 205 K/uL (140-440); RDW Coefficient of Variation % 12.1 % (11.5-15.5); Red Blood Count 2.79 m/uL (4.00-5.20); White Blood Count* 11.85 K/uL (4.50-11.00)
[2025-03-09 07:00] LABS: Chloride* 96 mmol/L (96-114)
[2025-03-09 07:01] LABS: Potassium* 3.1 mmol/L (3.6-5.1); Slide Review Reflex No; Sodium* 134 mmol/L (135-149)
[2025-03-09 07:03] LABS: Anion Gap 3 mEq/L (7-15); Blood Urea Nitrogen* 19 mg/dL (7-30); Carbon Dioxide* 35 mmol/L (20-32); Creatinine* 0.5 mg/dL (0.5-1.5); Est. Creatinine Clearance* 34.99; Estimated Glomerular Filt Rate 100 ml/min; Phosphorus* 2.2 mg/dL (2.5-4.5)
[2025-03-09 07:04] LABS: Calcium* 8.6 mg/dL (8.4-10.6); Glucose* 124 mg/dL (60-115); Magnesium* 1.8 mg/dL (1.5-2.6)
--- NOTE | 2025-03-09 07:34 | PC.NURSE ---
pt pleasant and cooperative. VSS slept most of the night. [employer]ig[employer] working ok.
[2025-03-09] MEDS: LORazepam 1 MG TABLET PO ×2 (07:59→19:59)
--- NOTE | 2025-03-09 09:47 | PM.IMPN1 ---
Assessment and Plan Assessment and plan (1) Acute on chronic respiratory failure with hypoxia and hypercapnia: Problem comment: -Patient with chronic severe O2 dependent COPD with ongoing episodes of hypoxia and hypercapnia. Exacerbated by chronic benzodiazepine and acute opioid use in the hospital and also by bowel obstruction. -near respiratory arrest event on the evening of 03/07/2025 everted with BiPAP therapy and stabilization of paroxysmal supraventricular tachycardia. Found to have right lower lobe pneumonia which is probably due to aspiration. Initiate meropenem and vancomycin for hospital-acquired pneumonia. MRSA swab pending. Improved on BiPAP. Do not intubate status reaffirmed on 03/08/202503/09 - stable and mildly improving on BiPAP. added end-tidal to monitor CO2. Status: Acute (2) Stage 4 very severe COPD by GOLD classification: Problem comment: -followed by Otto Kirby at [facility]. -last seen November 2024; advised to continue Trelegy but could go back to Advair/Spiriva or try Breztri. smoking cessation and pulmonary rehab discussed. -PFTS show FEV1 24% predicted 0.54L. FVC 1.5L and this is 52% of predicted. FEV1/FVC is 36% -GOLD 4E -will complete testing (overnight oximetry, 3 ABGs (oxygen, cpap, bipap supported)) per medicare guidelines to qualify for bipap support at home/rehab. Status: Acute (3) Pneumonia: Problem comment: New right lower lobe pneumonia likely developed 03/07 with her episode of SVT and acute respiratory failure. Initiate vancomycin and meropenem for hospital-acquired pneumonia 03/09 - MRSA neg. stop vanc. ordered legionella and strep pneumo. continue meropenem. rec'd one dose of IV steroids 03/08, oral prednisone 40 mg daily from 03/08-03/13 will repeat CXR in the am. Status: Acute (4) Hypokalemia: Problem comment: replace IV; pt does not tolerate oral replacement. Status: Acute (5) Small bowel obstruction: Problem comment: - 03/2022 s/p laparoscopic right hemicolectomy for endoscopically unresectable cecal polyps - 04/2022 Partial SBO, managed conservatively - 03/03/25 CT abd/pelvis: High grade SBO without transition point, possibly due to adhesions. NG tube removed on Anna 12. Advanced diet. Ongoing medical management. Patient is a very poor candidate for surgery. 03/09/25 - Clinically slowly improving. Still having ongoing abdominal pain which is an acute on chronic problem (mesenteric angina?) Status: Acute (6) Protein-calorie malnutrition, severe: Problem comment: - Also diagnosed in 2022 at [facility] This is caused by pulmonary cachexia and chronic abdominal pain of uncertain etiology. Patient has lost 9 kg/20 lb since April 2024 or approximately 2 lb a month. April 2024 she was 49 kg and now 40 kg Initiate PPN. Stop PPN when adequate oral nutrition. 03/09 - Placed central line. adding lipids. keeping total volume the same. will ask Nutrition to calculate TPN needs and volume on 03/11. Replacing potassium. Status: Acute (7) Pulmonary cachexia due to chronic obstructive pulmonary disease: Problem comment: Her blunger loader believes this is a contributor to her overall malnutrition Status: Acute (8) Tobacco use disorder: Problem comment: Urge smoking cessation. Status: Acute (9) Generalized anxiety disorder: Problem comment: On chronic lorazepam and fluoxetine -trial buspar 7.5mg bid on 03/09/25 Status: Chronic (10) Pulmonary hypertension: Problem comment: Echocardiogram from March 2022 showed severe pulmonary hypertension with right-sided pressure of 51 mmHg plus right atrial pressure HOWEVER 03/08/25 echo shows: the estimated right ventricular systolic pressure is 31 mmHg plus right atrial pressure. The pulmonic valve is normal. Trace pulmonary regurgitation. Status: Chronic (11) Paroxysmal supraventricular tachycardia: Problem comment: -likely triggered by albuterol beta agonist bronchodilator therapy. -03/09 resolved Status: Acute Subjective Date Seen: 03/09/25 Interval history: Daily Progress Note - Hospital Medicine Day #: 7 CC: SBO, COPD exacerbation, HAP, respiratory failure, malnutrition. 24 HOUR UPDATE: good night. wore bipap all night. came off mask this morning; tired out within 2 hours, fell asleep and back on bipap. not eating well. no apetite/chronic postprandial pain. no vomiting or diarrhea. RN: pt pleasant and cooperative. VSS slept most of the night. Purwick working ok. 03/08/2025: Last night patient developed SVT with a heart rate of 180-200. She was treated with adenosine 6 mg and 12 mg. This improved but did not resolve her tachycardia with her heart rate getting down to 120. She received metoprolol. She developed progressive respiratory failure and was placed on BiPAP. Blood pressure was soft and she was given metoprolol. She became hypotensive and norepinephrine was ordered but before it was initiated her blood pressure improved. She did not receive the norepinephrine. She did well on the BiPAP overnight. Respiratory status has substantially improved. This morning she remains on BiPAP. She had some food to eat last night. She reports no appetite and ongoing abdominal pain which she thinks is worsened by eating. She is passing gas but has not had a bowel movement since yesterday. Today we reaffirmed her code status of DNR DNI. This was done with the patient her daughter that she lives with and her granddaughter and Dr. Brooks as we reviewed her serious illness. She is still seeking medical treatment with a goal of returning home with her daughter. We also discussed managing her pain and anxiety and dyspnea which are her most prominent and troublesome symptoms. We talked about how her lorazepam and morphine are set beneficial for symptom control but provide some risk for respiratory depression. Notable Labs, Micro, Rads, Interventions: White count remains about the same mildly elevated at 11.8 Hemoglobin is drifting down to 8.6 Platelet count is normal. Blood gases encouraging. Her CO2 was normal this morning 48. She remains mildly alkalotic at 7.49 Mild hypokalemia with mild hyponatremia Renal function is intact. Creatinine clearance 35 Phosphorus has improved LFTs have increased modestly on day 5. Pending added on at this dictation time MRSA negative. No blood cultures drawn. Objective: sleepy but awakes and makes small conversation. Cachectic. bipap 35% 14/6. we've added end tital to monitor CO2 levels. Vitals: see above Lungs: shallow inspirations without obvious wheeze. Cardiac: S1S2. mild tachycardia edema: some 1+ pitting edema to the dorsum of feet but ankles are thin with only trace edema. Disposition/Potential discharge - guarded giving strength, muscle loss, acute and chronic respiratory compromise. Today I spent 50minutes seeing the patient, reviewing Expanse and EPIC notes/diagnostics, discussing the care plan with our care time that includes social work, PT/OT, pharmacy, RT, senior care and documenting my impressions and plan in the medical record. Exam Const: Vital Signs, click to edit/add: Vital Signs - 24 hr 03/08/25 11:00 03/08/25 11:00 03/08/25 11:13 Temperature Pulse Rate 101 H Pulse Rate [Right Pulse Oximeter] 97 105 H Respiratory Rate 20 20 Blood Pressure [Le ft Arm] 121/80 121/80 Pulse Oximetry 91 94 Oxygen Delivery Me thod BiPAP BiPAP Oxygen Flow Rate 35 Fraction of Inspir ed Oxygen 03/08/25 12:00 03/08/25 13:25 03/08/25 13:57 Temperature Pulse Rate 116 H Pulse Rate [Right Pulse Oximeter] 95 Respiratory Rate 20 Blood Pressure [Le ft Arm] 119/60 Pulse Oximetry 95 Oxygen Delivery Me thod BiPAP Oxygen Flow Rate Fraction of Inspir ed Oxygen 0.35 03/08/25 14:00 03/08/25 15:00 03/08/25 15:00 Temperature Pulse Rate 96 Pulse Rate [Right Pulse Oximeter] 105 H Respiratory Rate 19 Blood Pressure [Le ft Arm] 118/64 Pulse Oximetry 95 93 Oxygen Delivery Me thod BiPAP BiPAP Oxygen Flow Rate 30 Fraction of Inspir ed Oxygen 0.35 03/08/25 15:00 03/08/25 15:55 03/08/25 16:05 Temperature 98.2 F Pulse Rate Pulse Rate [Right Pulse Oximeter] 99 98 105 H Respiratory Rate 22 19 Blood Pressure [Le ft Arm] 110/53 L 106/65 Pulse Oximetry 93 Oxygen Delivery Me thod BiPAP Oxygen Flow Rate 30 Fraction of Inspir ed Oxygen 03/08/25 17:50 03/08/25 21:29 03/08/25 21:33 Temperature 97.6 F Pulse Rate 93 Pulse Rate [Right Pulse Oximeter] 99 87 Respiratory Rate 22 24 Blood Pressure [Le ft Arm] 126/76 129/76 Pulse Oximetry 92 90 Oxygen Delivery Me thod Nasal Cannula BiPAP Oxygen Flow Rate 2 Fraction of Inspir ed Oxygen 30 03/08/25 23:00 03/08/25 23:00 03/08/25 23:00 Temperature 97.6 F Pulse Rate Pulse Rate [Right Pulse Oximeter] 90 92 Respiratory Rate 24 Blood Pressure [Le ft Arm] 121/75 Pulse Oximetry 92 92 Oxygen Delivery Me thod BiPAP BiPAP Oxygen Flow Rate Fraction of Inspir ed Oxygen 30 30 03/09/25 01:00 03/09/25 01:00 03/09/25 03:00 Temperature Pulse Rate 106 H Pulse Rate [Right Pulse Oximeter] 91 82 Respiratory Rate 22 24 Blood Pressure [Le ft Arm] 105/73 105/61 Pulse Oximetry 92 97 Oxygen Delivery Me thod BiPAP BiPAP Oxygen Flow Rate Fraction of Inspir ed Oxygen 03/09/25 03:00 03/09/25 05:00 03/09/25 06:02 Temperature Pulse Rate 99 Pulse Rate [Right Pulse Oximeter] 82 92 Respiratory Rate 25 H Blood Pressure [Le ft Arm] 121/66 Pulse Oximetry 92 Oxygen Delivery Me thod BiPAP Oxygen Flow Rate Fraction of Inspir ed Oxygen 30 03/09/25 07:00 03/09/25 07:00 03/09/25 07:00 Temperature 99.3 F Pulse Rate Pulse Rate [Right Pulse Oximeter] 117 H 117 H Respiratory Rate 25 H 25 H 25 H Blood Pressure [Le ft Arm] 118/60 Pulse Oximetry 92 90 Oxygen Delivery Me thod Nasal Cannula Nasal Cannula Oxygen Flow Rate 2 2 Fraction of Inspir ed Oxygen Labs Labs: Laboratory Results - last 24 hr 03/09/25 06:28 WBC 11.85 H RBC 2.79 L Hgb 8.6 L Hct 26.6 L MCV 95 MCH 31 MCHC 32 RDW Coeff of Riri 12.1 Plt Count 205 Neut % (Auto) 70.2 Lymph % (Auto) 19.2 L Candler % (Auto) 7.9 Eos % (Auto) 1.4 Baso % (Auto) 0.2 Neut # (Auto) 8.30 H Lymph # (Auto) 2.30 Candler # (Auto) 0.90 Eos # (Auto) 0.20 Baso # (Auto) 0.00 Abs Immat Gran (auto) 0.10 Imm/Tot Granulo (auto) 1.1 VBG pH 7.491 H VBG pCO2 48 VBG pO2 71.1 H VBG HCO3 36 H Sodium 134 L Potassium 3.1 L Chloride 96 Carbon Dioxide 35 H Anion Gap 3 L BUN 19 Creatinine 0.5 Estimated Creat Clear 34.99 Estimated GFR 100 Glucose 124 H Calcium 8.6 Phosphorus 2.2 L Magnesium 1.8
[2025-03-09] MEDS: IPRAT-ALBUT 0.5-2.5 MG/3 ML NEB 1 NEB IH ×3 (10:36→20:49)
--- NOTE | 2025-03-09 10:55 | CRLHL7_ITS ---
For Patients: As a result of the Century Cures Act, medical imaging exams and procedure reports are released immediately into your electronic medical record. You may view this report before your referring provider. If you have questions, please contact your health care provider. INDICATION: PICC line check COMPARISON: 03/08/2025 TECHNIQUE: 1 view chest radiograph. FINDINGS: Devices: New right arm PICC distal tip is at the superior cavoatrial junction. Lung volumes are good. Persistent right parahilar opacity. Slightly improved aeration in the right lung base. Mild edema. No definite pleural effusion. No pneumothorax. No pneumomediastinum. Heart size is normal. Bones: No acute findings. IMPRESSION: New right arm PICC is in good position with the distal tip at the superior cavoatrial junction. No placement complication seen. Right lung base is slightly better aerated than on the previous exam. Dictated by Chey Butt MD @ 03/09/2025 1:45:42 PM (Electronically Signed)
[2025-03-09] MEDS: 5 % DEXTROSE IN LAC RINGER'S 1,000 ML 50 ML IV (11:25)
[2025-03-09] MEDS: LORazepam 2 MG/ML inj 0.5 MG IVP (11:49)
[2025-03-09 12:52] LABS: Lab Add On Test New Spec Needed
[2025-03-09 13:10] LABS: Albumin* 2.9 g/dL (3.3-5.0)
[2025-03-09 13:13] LABS: Alanine Aminotransferase* 86 U/L (4-35); Alkaline Phosphatase* 63 U/L (40-150); Aspartate Amino Transferase* 33 U/L (12-35); Bilirubin Direct* 0.1 mg/dL (0.0-0.5); Bilirubin Total* 0.4 mg/dL (0.1-1.5); Total Protein* 5.3 g/dL (6.0-8.3)
[2025-03-09] MEDS: ONDANSETRON 2 MG/ML inj 4 MG IVP ×2 (15:07→19:05)
[2025-03-09] MEDS: HYDROmorphone 0.5 mg/0.5 ml inj IVP ×2 (15:13→18:37)
[2025-03-09] MEDS: POTASSIUM CHLORIDE 10 MEQ/100 ML PIGGYBACK 100 MEQ IVPB ×2 (15:15→16:50)
[2025-03-09] MEDS: SODIUM CHLORIDE 0.9 % (FLUSH) 10 ML SYRINGE 5 ML IVF (15:16)
[2025-03-09] MEDS: predniSONE 20 MG TABLET 40 MG PO (15:16)
[2025-03-09] MEDS: MEROPENEM 1 GM in 0.9 % SODIUM CHLORIDE Mini-bag 100 ML IVPB (15:30)
[2025-03-09 16:17] LABS: Base Excess ABG 10.5 mmol/L (-3.0-3.0); HCO3 ABG 38 mmol/L (21-28); Oxygen Saturation ABG 74 % (92-100); TCO2 ABG 35 mmol/l (21-30); pH ABG 7.38 (7.35-7.45)
[2025-03-09 16:19] LABS: ABG PCO2 63 mmHG (35-45)
[2025-03-09 16:20] LABS: PO2 ABG 41.6 mmHG (80-105)
[2025-03-09] MEDS: AA 4.25%/CALCIUM/LYTES/DEX 5 % 2,000 ML 65 ML IV (16:49)
[2025-03-09] MEDS: Fluticasone-Umeclidin-Vilanter [Trelegy Ellipta] 200-62.5-25 mcg 1 EACH IH (19:23)
--- NOTE | 2025-03-09 19:37 | RESP.RT ---
Patient is on 2L NC while awake and .28BiPAP 14/6 while at rest. Target SAT of 86-92%. Patient is end stage COPD and retains CO2. PaCO2 on last ABG today was 63. We are working on qualifying her for a Home BiPAP with CPAP trial and BiPAP trials being done on Tuesday into Tuesday morning.
[2025-03-09 19:40] LABS: Legionella pneumo Ag Urine L. pneumo Negative (Negative); S pneumo Ag Urine S. pneumo Negative (Negative)
--- NOTE | 2025-03-09 19:41 | PC.NURSE ---
Nursing Care Hours: [id number] Pt this shift cooperative with cares. Calm with intermittent anxiety. Increased anxiety prior to PICC line placement, treated with one time IV ativan dose, effective. Pt requested Dilaudid for abdominal pain post meals. Did have BM this morning using BSC. Purewick used for u/o. Urine sample sent to lab. Pt sat at edge of bed for meals, using NC at 1-2L, titrating per spo2 response. Bipap used for rest periods. Bilat IV removed, PICC inserted without issue. BP stable this shift. Tele reading sinus arrhythmia or tach arrhythmia.
[2025-03-09] MEDS: FAT EMULSIONS 20 % 250 ML/250 ML BAG 14 ML IV (20:42)
[2025-03-09] MEDS: BUSPIRONE 10 MG TABLET 7.5 MG PO (20:48)
[2025-03-09] MEDS: ENOXAPARIN 30 MG/0.3ML INJ SUBCUT (20:49)
[2025-03-09] MEDS: INSULIN ASPART 100 UNIT/ML SUBCUT (21:03)
[2025-03-09] MEDS: BUDESONIDE 0.5 MG/2ML NEB NEB (22:19)
[2025-03-09] MEDS: NICOTINE 14 mg PATCH 1 PATCH TRANSDERMA (22:19)
[2025-03-10] VITALS (14 sets, daily range): BP systolic 101–143; BP diastolic 56–107; PULSE 80–133; RESP 12–28; TEMP 36.3–37.1; O2SAT 88–95
[2025-03-10] MEDS: MEROPENEM 1 GM in 0.9 % SODIUM CHLORIDE Mini-bag 100 ML IVPB ×2 (03:24→15:16)
[2025-03-10] MEDS: 0.9 % SODIUM CHLORIDE 250 ml IV (03:24)
[2025-03-10] MEDS: ACETAMINOPHEN 325 MG TABLET 650 MG PO (05:08)
[2025-03-10] MEDS: ONDANSETRON 2 MG/ML inj 4 MG IVP ×4 (05:09→20:03)
[2025-03-10] MEDS: HYDROmorphone 2 MG TABLET PO (05:09)
[2025-03-10] MEDS: SODIUM CHLORIDE 0.9 % (FLUSH) 10 ML SYRINGE 5 ML IVF ×4 (05:11→21:08)
--- NOTE | 2025-03-10 05:44 | PC.NURSE ---
Shift Note -: Pt wore Bipap most of this shift (28% FiO2). Transitioned to 2L/O2 via NC for nebulizer treatments and a 1-hour break during abx infusion for facial skin integrity. SpO2 consistently 92-94% on Bipap.LS significantly diminished. Tele= sinus arrhythmia, pt denies chest pain or pressure. Poor appetite, technical publications writer set pt up with apple ensure clear and she did not want it. Occasional sips of water. BS present, no BM. Pt reports intermittent flatus. Pt also c/o 3/10 abdominal pain and requested pain meds. Pt given PRN Tylenol and PO dilaudid. Daughter at bedside overnight. Pt needed reassurance/explaining POC. C/o nausea overnight as well, one dose PRN Zofran given.
[2025-03-10 06:43] LABS: HCO3 VBG 37 mmol/L (21-28); PCO2 VBG 52 mmHG (40-50); PO2 VBG 55.9 mmHG (25-47); pH VBG 7.456 (7.32-7.43)
[2025-03-10 06:54] LABS: Eosinophils Absolute Auto 0.03 K/uL (0.00-0.50); Eosinophils Percent Auto 0.3 % (0.0-7.0); Hematocrit 25.5 % (33.0-51.0); Hemoglobin* 8.3 gm/dL (12.0-16.0); Immature Granulocytes Abs Auto 0.03 K/uL (0.00-0.30); Immature Granulocytes Pct Auto 0.3 %; Lymphocytes Absolute Auto 1.96 K/uL (0.90-2.90); Lymphocytes Percent Auto 20.1 % (20-44); Mean Corpuscular HGB Conc 33 gm/dL (32-36); Mean Corpuscular Hemoglobin 31 pg (26-34); Mean Corpuscular Volume 95 fL (80-100); Monocytes Percent Auto 6.6 % (0.0-11.0); Neutrophils Percent Auto 72.7 % (42.0-72.0); Platelet Count* 251 K/uL (140-440); RDW Coefficient of Variation % 12.2 % (11.5-15.5); Red Blood Count 2.68 m/uL (4.00-5.20); White Blood Count* 9.73 K/uL (4.50-11.00)
[2025-03-10 06:56] LABS: Slide Review Reflex No
[2025-03-10 07:06] LABS: Chloride* 96 mmol/L (96-114); Potassium* 3.1 mmol/L (3.6-5.1); Sodium* 134 mmol/L (135-149)
[2025-03-10 07:09] LABS: Anion Gap 2 mEq/L (7-15); Blood Urea Nitrogen* 19 mg/dL (7-30); Calcium* 8.7 mg/dL (8.4-10.6); Carbon Dioxide* 36 mmol/L (20-32); Creatinine* 0.5 mg/dL (0.5-1.5); Est. Creatinine Clearance* 37.76; Estimated Glomerular Filt Rate 100 ml/min; Glucose* 136 mg/dL (60-115); Phosphorus* 2.8 mg/dL (2.5-4.5)
[2025-03-10 07:10] LABS: Triglycerides* 86 mg/dL (40-149)
[2025-03-10 07:11] LABS: INR 0.93 (0.91-1.10); Prothrombin Time 13.2 Seconds
--- NOTE | 2025-03-10 07:57 | CRLHL7_ITS ---
For Patients: As a result of the Century Cures Act, medical imaging exams and procedure reports are released immediately into your electronic medical record. You may view this report before your referring provider. If you have questions, please contact your health care provider. INDICATION: Hypoxia. Severe COPD. Pneumonia. COMPARISON: No prior chest CTs. I have reviewed the lung base images of an abdomen and pelvis CT dated March 03, 2025. also, radiographs dated March 08 and March 09, 2025 TECHNIQUE: : CT examination of the chest was performed with the uneventful intravenous administration of 95 cc of Isovue 370 while thin axial sections were obtained from above the apices of the lungs to the lung bases. The examination was timed as a pulmonary artery angiogram. MIP imaging/3D reformat imaging was provided Please note that all CT scans at this facility use dose modulation, iterative reconstruction, and/or weight-based dosing when appropriate to reduce radiation dose to as low as reasonably achievable. FINDINGS: : HEART and MEDIASTINUM: The heart size is normal. There is no mediastinal or hilar adenopathy or mass. No pericardial effusion. Heart size is normal. There is no mediastinal or hilar adenopathy or mass. There is no pericardial effusion. PULMONARY ARTERIAL CIRCULATION: There is no visible intraluminal filling defect to suggest pulmonary embolus. LUNGS and PLEURAL SPACES: Severe upper lobe predominant emphysema. Linear opacities primarily at the bases consistent with atelectasis.Slightly more confluent opacity at the posterior right base probably representing pneumonia. Small right effusion. No left effusion. No pneumothorax on either side. VISUALIZED UPPER ABDOMEN: The limited visualized upper abdominal structures appear normal. Contrast or other radiodense material is incidentally noted in the colon OSSEOUS STRUCTURES: Age-appropriate appearance. No acute fracture or destructive process. TUBES and LINES: A PICC line ends in the distal SVC. IMPRESSION: 1. No definite intraluminal filling defect to suggest pulmonary embolism. 2. Normal heart size. 3. PICC line normally located. 4. Severe emphysema. 5. Right posterior basilar opacity probably related to pneumonia. Basilar atelectasis also noted. Small free-flowing right effusion. 6. The findings suggest a pneumonia and the right pleural effusion are new when compared to the lung base images of a March 03, 2025 CT. However, the right base appears to have improved between the March 08 and March 09 x-rays Please note that all CT scans at this facility use dose modulation, iterative reconstruction, and/or weight-based dosing when appropriate to reduce radiation dose to as low as reasonably achievable. Dictated by Keegan Hernández MD @ 03/10/2025 10:58:47 AM (Electronically Signed)
[2025-03-10] MEDS: BUSPIRONE 10 MG TABLET 7.5 MG PO ×2 (08:32→21:02)
[2025-03-10] MEDS: FLUOXETINE HCL 20 MG CAPSULE 40 MG PO (08:32)
[2025-03-10] MEDS: predniSONE 20 MG TABLET 40 MG PO (08:32)
[2025-03-10] MEDS: THIAMINE 100 MG TABLET PO (08:32)
[2025-03-10] MEDS: BUDESONIDE 0.5 MG/2ML NEB NEB ×2 (08:33→21:41)
[2025-03-10] MEDS: IPRAT-ALBUT 0.5-2.5 MG/3 ML NEB 1 NEB IH ×3 (08:33→20:55)
[2025-03-10] MEDS: MORPHINE 10 MG/0.5 ML ORAL SOLN 5 MG PO ×3 (10:06→22:30)
[2025-03-10] MEDS: LORazepam 2 MG/ML inj 1 MG IVP ×2 (10:45→17:23)
--- NOTE | 2025-03-10 12:24 | PM.IMPN1 ---
Assessment and Plan Assessment and plan (1) Acute on chronic respiratory failure with hypoxia and hypercapnia: Problem comment: -Patient with chronic severe O2 dependent COPD with ongoing episodes of hypoxia and hypercapnia. Exacerbated by chronic benzodiazepine and acute opioid use in the hospital and also by bowel obstruction and then aspiration event during SVT run. -near respiratory arrest event on the evening of 03/07/2025 everted with BiPAP therapy and stabilization of paroxysmal supraventricular tachycardia. Found to have right lower lobe pneumonia which is probably due to aspiration. Initiate meropenem and vancomycin for hospital-acquired pneumonia. MRSA swab pending. Improved on BiPAP. Do not intubate status reaffirmed on 03/08/202503/09 - stable and mildly improving on BiPAP. added end-tidal to monitor CO2. MRSA neg - Vanc stopped 03/10 - CTA - no PE and pneumonia slowly improving Status: Acute (2) Stage 4 very severe COPD by GOLD classification: Problem comment: -followed by Otto Kirby at [facility] [place]. -last seen November 2024; advised to continue Trelegy but could go back to Advair/Spiriva or try Breztri. smoking cessation and pulmonary rehab discussed. -PFTS show FEV1 24% predicted 0.54L. FVC 1.5L and this is 52% of predicted. FEV1/FVC is 36% -GOLD 4E -will complete testing (overnight oximetry, 3 ABGs (oxygen, cpap, bipap supported)) per medicare guidelines to qualify for bipap support at home/rehab. Status: Acute (3) Pneumonia: Problem comment: New right lower lobe pneumonia likely developed 03/07 with her episode of SVT and acute respiratory failure. Initiate vancomycin and meropenem for hospital-acquired pneumonia 03/09 - MRSA neg. stop vanc. ordered legionella and strep pneumo. continue meropenem. rec'd one dose of IV steroids 03/08, oral prednisone 40 mg daily from 03/08-03/13 will repeat CXR in the am. 03/10 - L.pneumo and S.pneumo neg. Status: Acute (4) Hypokalemia: Problem comment: oral replacement with capsules not elixir Status: Acute (5) Small bowel obstruction: Problem comment: - 03/2022 s/p laparoscopic right hemicolectomy for endoscopically unresectable cecal polyps - 04/2022 Partial SBO, managed conservatively - 03/03/25 CT abd/pelvis: High grade SBO without transition point, possibly due to adhesions. NG tube removed on March 07. Advanced diet. Ongoing medical management. Patient is a very poor candidate for surgery. 03/09/25 - Clinically slowly improving. Still having ongoing abdominal pain which is an acute on chronic problem (mesenteric angina?) Status: Acute (6) Protein-calorie malnutrition, severe: Problem comment: - Also diagnosed in 2022 at [facility] This is caused by pulmonary cachexia and chronic abdominal pain of uncertain etiology. Patient has lost 9 kg/20 lb since April 2024 or approximately 2 lb a month. April 2024 she was 49 kg and now 40 kg Initiate PPN. Stop PPN when adequate oral nutrition. 03/09 - Placed central line. adding lipids. keeping total volume the same. 03/10 - PharmD calculated TPN Status: Acute (7) Pulmonary cachexia due to chronic obstructive pulmonary disease: Problem comment: Her electric organ checker believes this is a contributor to her overall malnutrition Status: Acute (8) Tobacco use disorder: Problem comment: Urge smoking cessation. Status: Acute (9) Generalized anxiety disorder: Problem comment: On chronic lorazepam and fluoxetine -trial buspar 7.5mg bid on 03/09/25 Status: Chronic (10) Pulmonary hypertension: Problem comment: Echocardiogram from March 2022 showed severe pulmonary hypertension with right-sided pressure of 51 mmHg plus right atrial pressure HOWEVER 03/08/25 echo shows: the estimated right ventricular systolic pressure is 31 mmHg plus right atrial pressure. The pulmonic valve is normal. Trace pulmonary regurgitation. Status: Chronic (11) Paroxysmal supraventricular tachycardia: Problem comment: -patient and family feel this was triggered by albuterol beta agonist bronchodilator therapy. -03/09 resolved Status: Acute Subjective Date Seen: 03/10/25 Interval history: Daily Progress Note - Hospital Medicine Day #: 8 CC: SBO, COPD exacerbation, HAP, respiratory failure, malnutrition. 24 HOUR UPDATE: good night. wore bipap all night. came off mask this morning; tired out within 2 hours, fell asleep and back on bipap. not eating well. no appetite/chronic postprandial pain. no vomiting or diarrhea. CTA this morning RT qualifying for home BiPAP RN: pt pleasant and cooperative. VSS slept most of the night. [place] working ok. Notable Labs, Micro, Rads, Interventions: IMPRESSION: 1. No definite intraluminal filling defect to suggest pulmonary embolism. 2. Normal heart size. 3. PICC line normally located. 4. Severe emphysema. 5. Right posterior basilar opacity probably related to pneumonia. Basilar atelectasis also noted. Small free-flowing right effusion. White count downtrending 9.73 Hemoglobin is drifting down to 8.3 Platelet count is normal. Blood gases encouraging. Her CO2 was normal this morning 52. She remains mildly alkalotic at 7.45 (ABG reported on 03/09 was on 2L NC) Mild hypokalemia with mild hyponatremia Renal function is intact. Creatinine clearance 35 Phosphorus has improved LFTs have increased modestly on day 5. improving. MRSA negative. No blood cultures drawn. Objective: sleepy but awakes and makes small conversation. Cachectic. bipap 35% 09/03. we've added end tital to monitor CO2 levels when off bipap. Vitals: see above Lungs: shallow inspirations without obvious wheeze. Cardiac: S1S2. mild tachycardia edema: some 1+ pitting edema to the dorsum of feet but ankles are thin with only trace edema. Disposition/Potential discharge - guarded giving strength, muscle loss, acute and chronic respiratory compromise. will likely need TCU, pallative care - 03/12-03/13 Today I spent 50minutes seeing the patient, reviewing Expanse and EPIC notes/diagnostics, discussing the care plan with our care time that includes social work, PT/OT, pharmacy, RT, [place] [facility] and documenting my impressions and plan in the medical record. Exam Const: Vital Signs, click to edit/add: Vital Signs - 24 hr 03/09/25 12:30 03/09/25 12:55 03/09/25 15:00 Temperature Pulse Rate Pulse Rate [Right Pulse Oximeter] 89 121 H 121 H Respiratory Rate 30 H 23 26 H Blood Pressure [Le ft Arm] 139/75 118/73 Pulse Oximetry 94 92 Oxygen Delivery Me thod Nasal Cannula Nasal Cannula Oxygen Flow Rate 2 1 Fraction of Inspir ed Oxygen 03/09/25 15:00 03/09/25 15:00 03/09/25 15:30 Temperature Pulse Rate 122 H Pulse Rate [Right Pulse Oximeter] 122 H Respiratory Rate 26 H 26 H Blood Pressure [Le ft Arm] 123/71 Pulse Oximetry 91 91 Oxygen Delivery Me thod Nasal Cannula Nasal Cannula Oxygen Flow Rate 1 1 Fraction of Inspir ed Oxygen 03/09/25 18:07 03/09/25 19:00 03/09/25 19:00 Temperature Pulse Rate 118 H Pulse Rate [Right Pulse Oximeter] 112 H Respiratory Rate 20 Blood Pressure [Le ft Arm] Pulse Oximetry Oxygen Delivery Me thod Nasal Cannula Oxygen Flow Rate Fraction of Inspir ed Oxygen 0.28 03/09/25 19:00 03/09/25 21:00 03/09/25 23:00 Temperature 99.4 F 99.4 F 98.1 F Pulse Rate Pulse Rate [Right Pulse Oximeter] 112 H 99 95 Respiratory Rate 20 22 22 Blood Pressure [Le ft Arm] 137/69 137/69 101/75 Pulse Oximetry 91 94 92 Oxygen Delivery Me thod Nasal Cannula BiPAP BiPAP Oxygen Flow Rate 2 Fraction of Inspir ed Oxygen 28 28 03/09/25 23:00 03/09/25 23:00 03/09/25 23:00 Temperature Pulse Rate 89 Pulse Rate [Right Pulse Oximeter] 89 Respiratory Rate 22 22 Blood Pressure [Le ft Arm] Pulse Oximetry 93 Oxygen Delivery Me thod BiPAP Oxygen Flow Rate Fraction of Inspir ed Oxygen 28 03/10/25 01:00 03/10/25 03:00 03/10/25 03:00 Temperature 97.8 F 98.5 F Pulse Rate Pulse Rate [Right Pulse Oximeter] 87 88 87 Respiratory Rate 24 22 22 Blood Pressure [Le ft Arm] 101/61 118/56 L Pulse Oximetry 93 93 Oxygen Delivery Me thod BiPAP Nasal Cannula Oxygen Flow Rate 2 Fraction of Inspir ed Oxygen 28 03/10/25 03:00 03/10/25 05:00 03/10/25 07:00 Temperature 97.3 F L Pulse Rate 91 Pulse Rate [Right Pulse Oximeter] 89 82 Respiratory Rate 23 12 Blood Pressure [Le ft Arm] 104/58 L Pulse Oximetry 95 Oxygen Delivery Me thod BiPAP Oxygen Flow Rate Fraction of Inspir ed Oxygen 28 03/10/25 07:00 03/10/25 07:00 03/10/25 07:00 Temperature Pulse Rate 80 Pulse Rate [Right Pulse Oximeter] 86 Respiratory Rate 12 12 Blood Pressure [Le ft Arm] 117/66 Pulse Oximetry 95 95 Oxygen Delivery Me thod BiPAP Room Air Oxygen Flow Rate Fraction of Inspir ed Oxygen 28 03/10/25 10:00 03/10/25 11:00 03/10/25 11:00 Temperature Pulse Rate 91 Pulse Rate [Right Pulse Oximeter] 115 H 91 Respiratory Rate 25 H 25 H Blood Pressure [Le ft Arm] 129/84 Pulse Oximetry 93 Oxygen Delivery Me thod Nasal Cannula Oxygen Flow Rate 1.5 Fraction of Inspir ed Oxygen Labs Labs: Laboratory Results - last 24 hr 03/09/25 03/09/25 03/09/25 06:28 12:42 12:46 WBC RBC Hgb Hct MCV MCH MCHC RDW Coeff of Riri Plt Count Neut % (Auto) Lymph % (Auto) [place] % (Auto) Eos % (Auto) Baso % (Auto) Neut # (Auto) Lymph # (Auto) [place] # (Auto) Eos # (Auto) Baso # (Auto) Abs Immat Gran (auto) Imm/Tot Granulo (auto) INR ABG pH ABG pCO2 ABG pO2 ABG HCO3 ABG Total CO2 ABG O2 Saturation ABG Base Excess VBG pH VBG pCO2 VBG pO2 VBG HCO3 Sodium Potassium Chloride Carbon Dioxide Anion Gap BUN Creatinine Estimated Creat Clear Estimated GFR Glucose Calcium Phosphorus Magnesium Total Bilirubin 0.4 Direct Bilirubin 0.1 AST 33 ALT 86 H Alkaline Phosphatase 63 Total Protein 5.3 L Albumin 2.9 L Triglycerides Urine L. pneumophilia Ag Urine Strep pneumoniae Ag Lab Acknowledgement Test Added New Spec Needed A 03/09/25 03/09/25 03/10/25 16:15 18:45 06:23 WBC 9.73 RBC 2.68 L Hgb 8.3 L Hct 25.5 L MCV 95 MCH 31 MCHC 33 RDW Coeff of Riri 12.2 Plt Count 251 Neut % (Auto) 72.7 H Lymph % (Auto) 20.1 [place] % (Auto) 6.6 Eos % (Auto) 0.3 Baso % (Auto) 0.0 Neut # (Auto) 7.10 H Lymph # (Auto) 1.96 [place] # (Auto) 0.60 Eos # (Auto) 0.03 Baso # (Auto) 0.00 Abs Immat Gran (auto) 0.03 Imm/Tot Granulo (auto) 0.3 INR 0.93 ABG pH 7.38 ABG pCO2 63 H* ABG pO2 41.6 L* ABG HCO3 38 H ABG Total CO2 35 H ABG O2 Saturation 74 L ABG Base Excess 10.5 H VBG pH 7.456 H VBG pCO2 52 H VBG pO2 55.9 H VBG HCO3 37 H Sodium 134 L Potassium 3.1 L Chloride 96 Carbon Dioxide 36 H Anion Gap 2 L BUN 19 Creatinine 0.5 Estimated Creat Clear 37.76 Estimated GFR 100 Glucose 136 H Calcium 8.7 Phosphorus 2.8 Magnesium 2.0 Total Bilirubin Direct Bilirubin AST ALT Alkaline Phosphatase Total Protein Albumin Triglycerides 86 Urine L. pneumophilia Ag L. pneumo Negative Urine Strep pneumoniae Ag S. pneumo Negative Lab Acknowledgement
[2025-03-10] MEDS: POTASSIUM CHLORIDE 10 MEQ CAPSULE ER 20 MEQ PO ×2 (14:12→20:03)
[2025-03-10] MEDS: AA 5 %/CALCIUM/LYTES/DEXT 20 % 2,000 ML 30 ML IV (14:12)
[2025-03-10] MEDS: LORazepam 1 MG TABLET PO ×2 (14:27→20:02)
--- NOTE | 2025-03-10 15:06 | RESP.RT ---
Patient has been resting well on .28BiPAP 09/03. We are working on home BiPAP qualifications with a nocturnal Oxymetry study on BiPAP tonight to complete the testing. We will work on paperwork and getting [facility] to set up the BiPAP in hospital prior to being discharged.
[2025-03-10] MEDS: Fluticasone-Umeclidin-Vilanter [Trelegy Ellipta] 200-62.5-25 mcg 1 EACH IH (17:58)
--- NOTE | 2025-03-10 19:03 | PC.NURSE ---
Nursing Care Hours: [id number] pt this shift alert and oriented and cooperative. Intermittent anxiety treated with IV and PO Ativan, effective. With anxiety, pt c/o stomach upset and treated with Zofran. CT scan this morning, pt talked through purpose of test. Morphine PO given prior transfer. Pt tolerating 2L NC during CT, spo2 at 91%. IV PRN Ativan given as pt was shaky and anxious. Pt took two and half hour nap after CT and CPAP trial during this time. Pt tolerated test well, sats remained 88-89%. At end of rest period, pt could not find call light and panicked, taking off mask causing spo2 to drop to mid 60% and pt had incontinent episode. Pt shaky and increase anxiety afterwards. Attempts to talk through feelings with web content writer and family unsuccessful and PRN Ativan given. Job Site Superintendent set up call light so that it should not fall and is attached to side of bed, easily accessible. Pt tolerating 1-2L NC while in bed. BP stable. HR sinus to sinus tach. Bilat legs decreased edema, lotion applied. Held insulin d/t limited PO intake. Pt eating pudding with med pass. Small amounts of meals brought in by family. Saman protein and collegen flavorless packets brought into room and discussed with pt using them with coffee or pudding. Pt agreeable. Pt declined the 1800 Potassium when due but states she will take it later. Reported to oncoming nurse. R arm continues to be sore and slightly red. warmth equal to bilat arms.
[2025-03-10] MEDS: ENOXAPARIN 30 MG/0.3ML INJ SUBCUT (21:02)
[2025-03-10] MEDS: AA 5 %/CALCIUM/LYTES/DEXT 20 % 2,000 ML 45 ML IV (21:44)
[2025-03-10] MEDS: NICOTINE 14 mg PATCH 1 PATCH TRANSDERMA (21:50)
[2025-03-11] VITALS (11 sets, daily range): BP systolic 96–110; BP diastolic 55–80; PULSE 78–111; RESP 20–28; TEMP 35.8–37.1; O2SAT 90–94; BMI 17.5
[2025-03-11] MEDS: 0.9 % SODIUM CHLORIDE 250 ml IV (02:31)
[2025-03-11] MEDS: LORazepam 1 MG TABLET PO ×4 (02:31→20:52)
[2025-03-11] MEDS: MEROPENEM 1 GM in 0.9 % SODIUM CHLORIDE Mini-bag 100 ML IVPB ×2 (03:52→15:35)
--- NOTE | 2025-03-11 05:33 | PC.NURSE ---
Shift Note -: Pt friendly and cooperative, able to verbalize her needs. Pt expressed anxious feelings about her hospitalization and stated I'm all alone. Her family was not with her at the bedside at that time and freelance writer reassured pt staff was monitoring her and that family had plans to arrive later in the evening. Pt given PRN Ativan Q6H and PRN Morphine x2 this shift. Bipap applied at 2200 and removed only once about 0230 for an hour during antibiotic infusion before being placed back on pt. HR has been tachy, 115-130 this shift, particularly when pt awake or post neb treatment. HR consistently in the 80's/90's while pt is sleeping. No BM. She did eat 100% of tapioca pudding with HS meds and sipped about 25% of a cup of coffee with cream/sugar. Denies pain.
[2025-03-11 06:59] LABS: Basophils Absolute Auto 0.03 K/uL (0.00-0.30); Basophils Percent Auto 0.3 % (0.0-3.0); Eosinophils Absolute Auto 0.38 K/uL (0.00-0.50); Eosinophils Percent Auto 4.1 % (0.0-7.0); Hematocrit 26.3 % (33.0-51.0); Hemoglobin* 8.3 gm/dL (12.0-16.0); Immature Granulocytes Abs Auto 0.03 K/uL (0.00-0.30); Immature Granulocytes Pct Auto 0.3 %; Lymphocytes Percent Auto 14.5 % (20-44); Mean Corpuscular HGB Conc 32 gm/dL (32-36); Mean Corpuscular Hemoglobin 31 pg (26-34); Mean Corpuscular Volume 99 fL (80-100); Monocytes Percent Auto 6.9 % (0.0-11.0); Neutrophils Percent Auto 73.9 % (42.0-72.0); Platelet Count* 288 K/uL (140-440); RDW Coefficient of Variation % 12.8 % (11.5-15.5); Red Blood Count 2.66 m/uL (4.00-5.20); White Blood Count* 9.22 K/uL (4.50-11.00)
[2025-03-11 07:00] LABS: Slide Review Reflex No
[2025-03-11] MEDS: MORPHINE 10 MG/0.5 ML ORAL SOLN 5 MG PO ×4 (07:00→21:39)
[2025-03-11 07:06] LABS: HCO3 VBG 32 mmol/L (21-28); PCO2 VBG 48 mmHG (40-50); PO2 VBG 77.2 mmHG (25-47); pH VBG 7.426 (7.32-7.43)
[2025-03-11 07:29] LABS: Albumin* 2.8 g/dL (3.3-5.0); Chloride* 96 mmol/L (96-114); Potassium* 4.6 mmol/L (3.6-5.1); Sodium* 131 mmol/L (135-149)
[2025-03-11 07:32] LABS: Alanine Aminotransferase* 53 U/L (4-35); Alkaline Phosphatase* 49 U/L (40-150); Anion Gap 5 mEq/L (7-15); Aspartate Amino Transferase* 41 U/L (12-35); Bilirubin Total* 0.4 mg/dL (0.1-1.5); Blood Urea Nitrogen* 17 mg/dL (7-30); Calcium* 8.5 mg/dL (8.4-10.6); Carbon Dioxide* 30 mmol/L (20-32); Creatinine* 0.6 mg/dL (0.5-1.5); Est. Creatinine Clearance* 37.83; Estimated Glomerular Filt Rate 96 ml/min; Phosphorus* 4.3 mg/dL (2.5-4.5); Total Protein* 5.1 g/dL (6.0-8.3)
[2025-03-11 07:45] LABS: Glucose* 818 mg/dL (60-115)
--- NOTE | 2025-03-11 07:47 | PM.IMPN1 ---
Assessment and Plan Assessment and plan (1) Acute on chronic respiratory failure with hypoxia and hypercapnia: Problem comment: -Patient with chronic severe O2 dependent COPD with ongoing episodes of hypoxia and hypercapnia. Exacerbated by chronic benzodiazepine and acute opioid use in the hospital and also by bowel obstruction and then aspiration event during SVT run. -near respiratory arrest event on the evening of 03/07/2025 everted with BiPAP therapy and stabilization of paroxysmal supraventricular tachycardia. Found to have right lower lobe pneumonia which is probably due to aspiration. Initiate meropenem and vancomycin for hospital-acquired pneumonia. MRSA swab pending. Improved on BiPAP. Do not intubate status reaffirmed on 03/08/202503/09 - stable and mildly improving on BiPAP. added end-tidal to monitor CO2. MRSA neg - Vanc stopped 03/10 - CTA - no PE and pneumonia slowly improving 03/11 - slowly improving Status: Acute (2) Stage 4 very severe COPD by GOLD classification: Problem comment: -followed by Otto Kirby at [facility] at [place]. -last seen November 2024; advised to continue Trelegy but could go back to Advair/Spiriva or try Breztri. smoking cessation and pulmonary rehab discussed. -PFTS show FEV1 24% predicted 0.54L. FVC 1.5L and this is 52% of predicted. FEV1/FVC is 36% -GOLD 4E -continue LAMA/LABA/ICS with duo nebs and budesnide nebs -IV/oral steroids for five days -will complete testing (overnight oximetry, 3 ABGs (oxygen, cpap, bipap supported)) per medicare guidelines to qualify for bipap support at home/rehab. Status: Acute (3) Pneumonia: Problem comment: New right lower lobe pneumonia likely developed 03/07 with her episode of SVT and acute respiratory failure. Initiate vancomycin and meropenem for hospital-acquired pneumonia 03/09 - MRSA neg. stop vanc. ordered legionella and strep pneumo. continue meropenem. rec'd one dose of IV steroids 03/08, oral prednisone 40 mg daily from 03/08-03/13 will repeat CXR in the am. 03/10 - L.pneumo and S.pneumo neg. 03/11 - improving Status: Acute (4) Generalized anxiety disorder: Problem comment: On chronic lorazepam (1 mg q6 prn) and fluoxetine -trial buspar 7.5mg bid on 03/09/25 -trial SL morphine for air hunger Status: Chronic (5) Hypokalemia: Problem comment: oral replacement with capsules not elixir Status: Acute (6) Protein-calorie malnutrition, severe: Problem comment: - Also diagnosed in 2022 at [facility] This is caused by pulmonary cachexia and chronic abdominal pain of uncertain etiology. Patient has lost 9 kg/20 lb since April 2024 or approximately 2 lb a month. April 2024 she was 49 kg and now 40 kg Initiate PPN. Stop PPN when adequate oral nutrition. 03/09 - Placed central line. adding lipids. keeping total volume the same. 03/10 - PharmD calculated TPN 03/11 - plan for 03/[address] small bore feeding tube and see how she tolerates her feeds Status: Acute (7) Pulmonary cachexia due to chronic obstructive pulmonary disease: Problem comment: Her physically impaired teacher believes this is a contributor to her overall malnutrition Status: Acute (8) Tobacco use disorder: Problem comment: Urge smoking cessation. Status: Acute (9) Paroxysmal supraventricular tachycardia: Problem comment: -patient and family feel this was triggered by albuterol beta agonist bronchodilator therapy. -03/09 resolved Status: Acute (10) Small bowel obstruction: Problem comment: - 03/2022 s/p laparoscopic right hemicolectomy for endoscopically unresectable cecal polyps - 04/2022 Partial SBO, managed conservatively - 03/03/25 CT abd/pelvis: High grade SBO without transition point, possibly due to adhesions. NG tube removed on March 07. Advanced diet. Ongoing medical management. Patient is a very poor candidate for surgery. 03/09/25 - Clinically slowly improving. Still having ongoing abdominal pain which is an acute on chronic problem (mesenteric angina?) 03/11 - tolerated eggs; improving Status: Acute (11) Pulmonary hypertension: Problem comment: Echocardiogram from March 2022 showed severe pulmonary hypertension with right-sided pressure of 51 mmHg plus right atrial pressure HOWEVER 03/08/25 echo shows: the estimated right ventricular systolic pressure is 31 mmHg plus right atrial pressure. The pulmonic valve is normal. Trace pulmonary regurgitation. Status: Chronic Subjective Date Seen: 03/11/25 Interval history: Daily Progress Note - Hospital Medicine #: 9 CC: SBO, COPD exacerbation, HAP, respiratory failure, malnutrition. 24 HOUR UPDATE: good night. VBG continues to demonstrate excellent control of her hypercapnia with BiPAP. Order and medical necessity completed for BiPAP. feeding tube discussed and will be placed tomorrow morning. looking for TCU placement by end of the week. RN: Shift Note : Pt friendly and cooperative, able to verbalize her needs. Pt expressed anxious feelings about her hospitalization and stated I'm all alone. Her family was not with her at the bedside at that time and contract writer reassured pt staff was monitoring her and that family had plans to arrive later in the evening. Pt given PRN Ativan Q6H and PRN Morphine x2 this shift. Bipap applied at 2200 and removed only once about 0230 for an hour during antibiotic infusion before being placed back on pt. HR has been tachy, 115-130 this shift, particularly when pt awake or post neb treatment. HR consistently in the 80's/90's while pt is sleeping. No BM. She did eat 100% of tapioca pudding with HS meds and sipped about 25% of a cup of coffee with cream/sugar. Denies pain. Notable Labs, Micro, Rads, Interventions: White count downtrending 9.22 Hemoglobin is drifting down to 8.3 Platelet count is normal. Blood gases encouraging. Her CO2 was normal this morning 48. Mild hyponatremia Renal function is intact. Creatinine clearance 35 BS reported as 818 but this is not true; drawn off TPN infusion. fingerstick was 123. Phosphorus has improved LFTs have increased modestly on day 5. fluctuating. MRSA negative. No blood cultures drawn. Objective: sleepy but awakes and makes small conversation. Cachectic. bipap 35% 14/6. we've added end tital to monitor CO2 levels when off bipap. Vitals: see above Lungs: shallow inspirations without obvious wheeze. Cardiac: S1S2. mild tachycardia edema: some 1+ pitting edema to the dorsum of feet but ankles are thin with only trace edema. Disposition/Potential discharge - guarded giving strength, muscle loss, acute and chronic respiratory compromise. will likely need TCU, pallative care - 03/14-03/15 Today I spent 50minutes seeing the patient, reviewing Expanse and EPIC notes/diagnostics, discussing the care plan with our care time that includes social work, PT/OT, pharmacy, RT, [facility] and documenting my impressions and plan in the medical record. Exam Const: Vital Signs, click to edit/add: Vital Signs - 24 hr 03/10/25 10:00 03/10/25 11:00 03/10/25 11:00 Temperature Pulse Rate 91 Pulse Rate [Right Pulse Oximeter] 115 H 91 Respiratory Rate 25 H 25 H Blood Pressure [Le ft Arm] 129/84 Pulse Oximetry 93 Oxygen Delivery Me thod Nasal Cannula Oxygen Flow Rate 1.5 Fraction of Inspir ed Oxygen 03/10/25 12:00 03/10/25 14:00 03/10/25 15:00 Temperature Pulse Rate Pulse Rate [Right Pulse Oximeter] 97 107 H Respiratory Rate 28 H 20 Blood Pressure [Le ft Arm] 114/69 143/88 H Pulse Oximetry 88 91 Oxygen Delivery Me thod CPAP Nasal Cannula Oxygen Flow Rate 2 Fraction of Inspir ed Oxygen 28 0.28 03/10/25 15:00 03/10/25 15:00 03/10/25 15:00 Temperature Pulse Rate 133 H Pulse Rate [Right Pulse Oximeter] 107 H Respiratory Rate 20 Blood Pressure [Le ft Arm] Pulse Oximetry Oxygen Delivery Me thod CPAP Oxygen Flow Rate Fraction of Inspir ed Oxygen 0.28 03/10/25 15:00 03/10/25 17:30 03/10/25 19:00 Temperature Pulse Rate 103 H Pulse Rate [Right Pulse Oximeter] 122 H Respiratory Rate 28 H 24 Blood Pressure [Le ft Arm] 128/69 Pulse Oximetry 89 88 Oxygen Delivery Me thod Nasal Cannula Nasal Cannula Oxygen Flow Rate 2 2 Fraction of Inspir ed Oxygen 03/10/25 20:31 03/10/25 20:31 03/10/25 22:00 Temperature 98.7 F 98.6 F Pulse Rate Pulse Rate [Right Pulse Oximeter] 103 H 110 H 114 H Respiratory Rate 24 24 17 Blood Pressure [Le ft Arm] 122/77 131/107 H Pulse Oximetry 89 93 Oxygen Delivery Me thod Nasal Cannula BiPAP Oxygen Flow Rate 2 Fraction of Inspir ed Oxygen 0.28 03/10/25 23:00 03/10/25 23:00 03/11/25 00:00 Temperature Pulse Rate 87 Pulse Rate [Right Pulse Oximeter] 87 Respiratory Rate 20 20 Blood Pressure [Le ft Arm] Pulse Oximetry 92 Oxygen Delivery Me thod BiPAP Oxygen Flow Rate Fraction of Inspir ed Oxygen 0.28 03/11/25 00:00 03/11/25 02:00 03/11/25 03:00 Temperature 97.8 F Pulse Rate 87 Pulse Rate [Right Pulse Oximeter] 96 94 Respiratory Rate 20 20 Blood Pressure [Le ft Arm] 104/62 109/67 Pulse Oximetry 92 90 Oxygen Delivery Me thod BiPAP Nasal Cannula Oxygen Flow Rate 2 Fraction of Inspir ed Oxygen 0.28 03/11/25 04:00 03/11/25 04:00 03/11/25 06:00 Temperature Pulse Rate Pulse Rate [Right Pulse Oximeter] 92 87 94 Respiratory Rate 20 28 H 26 H Blood Pressure [Le ft Arm] 109/72 99/80 Pulse Oximetry 92 92 Oxygen Delivery Me thod BiPAP BiPAP Oxygen Flow Rate Fraction of Inspir ed Oxygen 0.28 0.28 03/11/25 06:50 Temperature Pulse Rate 94 Pulse Rate [Right Pulse Oximeter] Respiratory Rate Blood Pressure [Le ft Arm] Pulse Oximetry Oxygen Delivery Me thod Oxygen Flow Rate Fraction of Inspir ed Oxygen Labs Labs: Laboratory Results - last 24 hr 03/11/25 06:45 WBC 9.22 RBC 2.66 L Hgb 8.3 L Hct 26.3 L MCV 99 MCH 31 MCHC 32 RDW Coeff of Riri 12.8 Plt Count 288 Neut % (Auto) 73.9 H Lymph % (Auto) 14.5 L [place] % (Auto) 6.9 Eos % (Auto) 4.1 Baso % (Auto) 0.3 Neut # (Auto) 6.80 Lymph # (Auto) 1.30 [place] # (Auto) 0.60 Eos # (Auto) 0.38 Baso # (Auto) 0.03 Abs Immat Gran (auto) 0.03 Imm/Tot Granulo (auto) 0.3 VBG pH 7.426 VBG pCO2 48 VBG pO2 77.2 H VBG HCO3 32 H Sodium 131 L Potassium 4.6 Chloride 96 Carbon Dioxide 30 Anion Gap 5 L BUN 17 Creatinine 0.6 Estimated Creat Clear 37.83 Estimated GFR 96 Glucose 818 H* Calcium 8.5 Phosphorus 4.3 Magnesium 2.0 Total Bilirubin 0.4 AST 41 H ALT 53 H Alkaline Phosphatase 49 Total Protein 5.1 L Albumin 2.8 L
[2025-03-11 08:09] LABS: ABG PCO2 59 mmHG (35-45); Base Excess ABG 9.2 mmol/L (-3.0-3.0); HCO3 ABG 36 mmol/L (21-28); Oxygen Saturation ABG 92 % (92-100); PO2 ABG 60.7 mmHG (80-105); TCO2 ABG 34 mmol/l (21-30); pH ABG 7.39 (7.35-7.45)
[2025-03-11] MEDS: POTASSIUM CHLORIDE 10 MEQ CAPSULE ER 20 MEQ PO ×2 (09:02→18:15)
[2025-03-11] MEDS: BUDESONIDE 0.5 MG/2ML NEB NEB ×2 (09:03→21:27)
[2025-03-11] MEDS: THIAMINE 100 MG TABLET PO (09:03)
[2025-03-11] MEDS: ONDANSETRON 2 MG/ML inj 4 MG IVP ×3 (09:03→22:31)
[2025-03-11] MEDS: FLUOXETINE HCL 20 MG CAPSULE 40 MG PO (09:03)
[2025-03-11] MEDS: IPRAT-ALBUT 0.5-2.5 MG/3 ML NEB 1 NEB IH ×3 (09:03→20:46)
[2025-03-11] MEDS: predniSONE 20 MG TABLET 40 MG PO (09:03)
[2025-03-11] MEDS: BUSPIRONE 10 MG TABLET 7.5 MG PO ×2 (09:04→20:52)
[2025-03-11] MEDS: SODIUM CHLORIDE 0.9 % (FLUSH) 10 ML SYRINGE 5 ML IVF ×2 (09:05→21:41)
--- NOTE | 2025-03-11 10:51 | W.PM.CROSSCO ---
Subjective Subjective Date Seen: 03/11/25 Principal diagnosis: End Stage COPD; GOLD4 Interval history: Patient is a 69-year-old female that has end-stage COPD. ?Her FEV1 is 24% of predicted at 0.54 L. her FVC is 1.5 L, 52% of predicted. ?Her FEV1/FEVc is 36%. Patient is hospitalized with a resolving small-bowel obstruction, Acute on chronic COPD exacerbation. ?As the acute issues are resolving her COPD has now become BiPAP dependent. ?She becomes hypercapnic without BiPAP. She has been on supplemental oxygen by nasal cannula for 2 years. ?At her baseline, 2 L nasal cannula oxygen revealed during this hospitalization that her pCO2 xin to 63mmHG ?and she became somnolent. ?When we trialed CPAP we noted that her pCO2 came down to 61, however she still remained somewhat somnolent. ?We of course used all ancillary available treatments in addition to pressure support. ?Pulmonary acute rehab exercises with vibratory PEEP, incentive spirometry and positioning was utilized. ?We also utilized the her baseline COPD regimen by inhaler, nebulized DuoNebs and steroids. ?None of the ancillary treatments or CPAP were effective. ?However when we applied BiPAP we noted a significant drop in her pCO2. ?By venous blood gas after being on BiPAP for several hours her pCO2 was 48, within 1 hour of being off BiPAP we noted that her ABG pCO2 was already rising to 59. Nocturnal oximetry measurements show desaturations at 11 per hour on CPAP and a marked improvement with BiPAP to 3 an hour. ?Clinically there was marked improvement with BiPAP support. There is clear medical necessity and clinical improvement with the use of BiPAP for this patient has end-stage COPD.
[2025-03-11 11:54] LABS: ABG PCO2 62 mmHG (35-45); Base Excess ABG 8.5 mmol/L (-3.0-3.0); HCO3 ABG 35 mmol/L (21-28); Oxygen Saturation ABG 91 % (92-100); PO2 ABG 59.8 mmHG (80-105); TCO2 ABG 33 mmol/l (21-30); pH ABG 7.37 (7.35-7.45)
[2025-03-11] MEDS: AA 5 %/CALCIUM/LYTES/DEXT 20 % 2,000 ML 45 ML IV (14:29)
--- NOTE | 2025-03-11 14:58 | PC.NURSE ---
End of shift. pt has been very pleasant. she is alert x4 cooperative, able to able to verbalize her needs. she had some abd pain this am and got po pain meds. she did ask for Ativan, she is very anxious at times. no family her today. Bipap was on one time RT did update RN and pt needs to wear Bi-PAP with any sleep/naps. she currently has it on. HR 90- 115 this shift, post neb treatment HR can be 115-130. No BM. She did eat 100% of tapioca pudding with meds. she wants potassium open and ask if she wants her meds crushed. she likes cup of coffee with cream/sugar. PT and OT worked with her. nicotine patch is on. Picc is patent.
--- NOTE | 2025-03-11 15:01 | RESP.RT ---
Patient has been qualified for home BiPAP. Patient is planning on discharging to a TCU later this week. Once we have decided on the TCU, the TCU will have to decide if they will pay for a BiPAP from their contracted supplier ([employer]) or if they will do a 1 patient contract with [facility] as she is planning on a short TCU stay. If the TCU is willing to do a 1 patient contract, then [facility] is willing to set up the patient with her home BiPAP prior to being discharged from the hospital. We will be able to communicate who the TCU is through [employer] to [facility], who will supply the BiPAP either prior to discharge to TCU or when she discharges from TCU to home. Patient already has supplemental O2 set up through [employer] and will continue to use them at this point. Patient is very frail and becomes hypercarbic anytime she is off of BiPAP. Respiratory drive is almost non existent if SATs are above 94%. Target SAT of 86-92%. Patient and family are very nervous and require lots of reassurance of what the plan is and the process going forward. Patient still smokes, has a significant smoking history, and is end stage COPD confirmed by last PFT results. Plan is to have her on .28BiPAP 14/6 any time she is resting, and 2L NC any time she is awake and talking. She does require 4-8L O2 with activity, but thus far her activities have been very limited to sitting at the edge of the bed and transitioning to bedside commode.
--- NOTE | 2025-03-11 15:54 | PC.SOCIAL ---
Discharge planning: weld lay out worker met with pt and spoke to pt's daughter, Jenni, via phone. weld lay out worker explained to pt and pt's daughter that she is being recommended for short-term rehab after the hospital. Pt stated that she would really like to go home after the hospital, but was also fine with going to a facility. weld lay out worker then spoke with pt's daughter, Jenni, over the phone this afternoon and pt's daughter is agreeable with this plan. Pt was living with her daughter, Jenni, in [place] in Jenni's home before she came into the hospital and really wants to be able to return back there after her rehabilitation stay. weld lay out worker emailed pt's daughter the list of Additional Area Residential Facilities to start reviewing. Pt's daughter will get back to this worker with choices for facilities via email. Social work to follow-up as needed.
--- NOTE | 2025-03-11 16:23 | PC.NURSE ---
Order faxed to [facility] per Dr. Jara request.
[2025-03-11] MEDS: FAT EMULSIONS 20 % 250 ML/250 ML BAG 14 ML IV (18:17)
[2025-03-11] MEDS: INSULIN ASPART 100 UNIT/ML SUBCUT (20:44)
[2025-03-11] MEDS: ENOXAPARIN 30 MG/0.3ML INJ SUBCUT (20:46)
[2025-03-11] MEDS: NICOTINE 14 mg PATCH 1 PATCH TRANSDERMA (22:31)
--- NOTE | 2025-03-11 22:52 | PC.NURSE ---
Patient awake and alert later portion of the shift. Using Bipap machine for respiratory support while sleeping/resting. When awake, on nasal cannula at 2L of oxygen. Otherwise vitally stable. PRN medications given for pain and nausea. Patient ordered dinner, but not able to tolerate/not hungry to eat most of it. Lipids started along with continued PPN. Patient had daughters visit during the evening and was given bed bath. Nursing to continue to monitor.?
[2025-03-12] VITALS (11 sets, daily range): BP systolic 90–131; BP diastolic 56–80; PULSE 79–118; RESP 14–24; TEMP 36.4–37.4; O2SAT 91–94; BMI 18.0
[2025-03-12 04:08] LABS: Prealbumin 8.8 mg/dL (20.0-40.0)
[2025-03-12] MEDS: MEROPENEM 1 GM in 0.9 % SODIUM CHLORIDE Mini-bag 100 ML IVPB (04:55)
[2025-03-12] MEDS: 0.9 % SODIUM CHLORIDE 250 ml IV (04:55)
[2025-03-12] MEDS: LORazepam 1 MG TABLET PO ×3 (04:57→21:25)
[2025-03-12 07:17] LABS: Basophils Absolute Auto 0.02 K/uL (0.00-0.30); Basophils Percent Auto 0.3 % (0.0-3.0); Eosinophils Absolute Auto 0.27 K/uL (0.00-0.50); Eosinophils Percent Auto 3.7 % (0.0-7.0); Hematocrit 24.1 % (33.0-51.0); Immature Granulocytes Abs Auto 0.03 K/uL (0.00-0.30); Immature Granulocytes Pct Auto 0.4 %; Lymphocytes Absolute Auto 1.77 K/uL (0.90-2.90); Lymphocytes Percent Auto 24.5 % (20-44); Mean Corpuscular HGB Conc 33 gm/dL (32-36); Mean Corpuscular Hemoglobin 33 pg (26-34); Mean Corpuscular Volume 98 fL (80-100); Monocytes Percent Auto 9.1 % (0.0-11.0); Neutrophils Absolute Auto 4.48 K/uL (1.7-7.0); Platelet Count* 271 K/uL (140-440); RDW Coefficient of Variation % 12.7 % (11.5-15.5); Red Blood Count 2.46 m/uL (4.00-5.20); White Blood Count* 7.23 K/uL (4.50-11.00)
[2025-03-12 07:21] LABS: Slide Review Reflex No
--- NOTE | 2025-03-12 07:23 | PC.NURSE ---
Picked up pt at 2300: Pt pleasant, alert and oriented. Blood pressures are soft, otherwise vitally stable. O2 sats remained above 90% throughout the shift. Pt on Bipap, tolerating well. Pt requested prn ativan at 0600. Pure Wick patent and draining. Pt requested bipap off at 0700, placed on 2L o2. Pt in bed, appears to be resting, call light within reach.?
[2025-03-12 07:30] LABS: Chloride* 95 mmol/L (96-114); Potassium* 4.2 mmol/L (3.6-5.1); Sodium* 132 mmol/L (135-149)
[2025-03-12 07:33] LABS: Anion Gap 4 mEq/L (7-15); Blood Urea Nitrogen* 20 mg/dL (7-30); Calcium* 8.5 mg/dL (8.4-10.6); Carbon Dioxide* 33 mmol/L (20-32); Creatinine* 0.6 mg/dL (0.5-1.5); Est. Creatinine Clearance* 38.87; Estimated Glomerular Filt Rate 96 ml/min; Phosphorus* 3.1 mg/dL (2.5-4.5)
[2025-03-12 07:38] LABS: Glucose* 460 mg/dL (60-115)
[2025-03-12] MEDS: BUSPIRONE 10 MG TABLET 7.5 MG PO ×2 (07:51→20:47)
[2025-03-12] MEDS: MORPHINE 10 MG/0.5 ML ORAL SOLN 5 MG PO ×3 (07:51→20:01)
[2025-03-12] MEDS: ONDANSETRON 2 MG/ML inj 4 MG IVP ×2 (07:56→17:21)
--- NOTE | 2025-03-12 08:06 | PM.IMPN1 ---
Assessment and Plan Assessment and plan (1) Acute on chronic respiratory failure with hypoxia and hypercapnia: Problem comment: -Patient with chronic severe O2 dependent COPD with ongoing episodes of hypoxia and hypercapnia. Exacerbated by chronic benzodiazepine and acute opioid use in the hospital and also by bowel obstruction and then aspiration event during SVT run. -near respiratory arrest event on the evening of 03/07/2025 everted with BiPAP therapy and stabilization of paroxysmal supraventricular tachycardia. Found to have right lower lobe pneumonia which is probably due to aspiration. Initiate meropenem and vancomycin for hospital-acquired pneumonia. MRSA swab pending. Improved on BiPAP. Do not intubate status reaffirmed on 03/08/202503/09 - stable and mildly improving on BiPAP. added end-tidal to monitor CO2. MRSA neg - Vanc stopped 03/10 - CTA - no PE and pneumonia slowly improving 03/11 - slowly improving 03/12 - slow improvement. no setbacks. Status: Acute (2) Stage 4 very severe COPD by GOLD classification: Problem comment: -followed by Otto Kirby at [facility] [place]. -last seen November 2024; advised to continue Trelegy but could go back to Advair/Spiriva or try Breztri. smoking cessation and pulmonary rehab discussed. -PFTS show FEV1 24% predicted 0.54L. FVC 1.5L and this is 52% of predicted. FEV1/FVC is 36% -GOLD 4E -continue LAMA/LABA/ICS with duo nebs and budesonide nebs -IV/oral steroids for five days -completed qualifying data collection for bipap medical necessity. next step, once rehab has accepted, we need to work with outside agency to determine if bipap goes with patient to rehab or if it is delivered to home Status: Acute (3) Pneumonia: Problem comment: New right lower lobe pneumonia likely developed 03/07 with her episode of SVT and acute respiratory failure. Initiate vancomycin and meropenem for hospital-acquired pneumonia 03/09 - MRSA neg. stop vanc. ordered legionella and strep pneumo. continue meropenem. rec'd one dose of IV steroids 03/08, oral prednisone 40 mg daily from 03/08-03/13 will repeat CXR in the am. 03/10 - L.pneumo and S.pneumo neg. 03/11 - improving 03/12 - transition meropenem to oral vantin. total abx days: 5. 03/07 evening. held vanc on 03/09. 5 days of meropenem to date. will transition to Vantin 200mg BID on am of 03/12/25. Status: Acute (4) Generalized anxiety disorder: Problem comment: On chronic lorazepam (1 mg q6 prn) and fluoxetine -trial buspar 7.5mg bid on 03/09/25 -trial SL morphine for air hunger Status: Chronic (5) Hypokalemia: Problem comment: oral replacement with capsules not elixir - resolved. Status: Acute (6) Protein-calorie malnutrition, severe: Problem comment: - Also diagnosed in 2022 at [facility] This is caused by pulmonary cachexia and chronic abdominal pain of uncertain etiology. Patient has lost 9 kg/20 lb since April 2024 or approximately 2 lb a month. April 2024 she was 49 kg and now 40 kg Initiate PPN. Stop PPN when adequate oral nutrition. 03/09 - Placed central line. adding lipids. keeping total volume the same. 03/10 - PharmD calculated TPN 03/11 - plan for 03/[address] small bore feeding tube and see how she tolerates her feeds 03/12 - small bore feeding tub placed am of 03/12, nutrition in lead for formula/rate/residuals and misc guidance. Status: Acute (7) Pulmonary cachexia due to chronic obstructive pulmonary disease: Problem comment: Her bulwark carpenter believes this is a contributor to her overall malnutrition Status: Acute (8) Tobacco use disorder: Problem comment: Urge smoking cessation. Status: Acute (9) Paroxysmal supraventricular tachycardia: Problem comment: -patient and family feel this was triggered by albuterol beta agonist bronchodilator therapy. -03/09 resolved Status: Acute (10) Small bowel obstruction: Problem comment: - 03/2022 s/p laparoscopic right hemicolectomy for endoscopically unresectable cecal polyps - 04/2022 Partial SBO, managed conservatively - 03/03/25 CT abd/pelvis: High grade SBO without transition point, possibly due to adhesions. NG tube removed on March 07. Advanced diet. Ongoing medical management. Patient is a very poor candidate for surgery. 03/09/25 - Clinically slowly improving. Still having ongoing abdominal pain which is an acute on chronic problem (mesenteric angina?) 03/11 - tolerated eggs; resolved. Status: Acute (11) Pulmonary hypertension: Problem comment: Echocardiogram from March 2022 showed severe pulmonary hypertension with right-sided pressure of 51 mmHg plus right atrial pressure HOWEVER 03/08/25 echo shows: the estimated right ventricular systolic pressure is 31 mmHg plus right atrial pressure. The pulmonic valve is normal. Trace pulmonary regurgitation. Status: Chronic Subjective Date Seen: 03/12/25 Interval history: Daily Progress Note - Hospital Medicine #: 10 CC: SBO, COPD exacerbation, HAP, respiratory failure, malnutrition. 24 HOUR UPDATE: good night. VBG continues to demonstrate excellent control of her hypercapnia with BiPAP. Order and medical necessity completed for BiPAP. feeding tube discussed and will be placed tomorrow morning. looking for TCU placement by end of the week. RN: Picked up pt at 2300: Pt pleasant, alert and oriented. Blood pressures are soft, otherwise vitally stable. O2 sats remained above 90% throughout the shift. Pt on Bipap, tolerating well. Pt requested prn ativan at 0600. Pure Wick patent and draining. Pt requested bipap off at 0700, placed on 2L o2. Pt in bed, appears to be resting, call light within reach.? Notable Labs, Micro, Rads, Interventions: White count downtrending 9.22 Hemoglobin is drifting down to 8.3 --> 8.0 Platelet count is normal. Blood gases pending Mild hyponatremia Renal function is intact. Creatinine clearance 35 Phosphorus has improved LFTs have increased modestly on day 5. fluctuating. MRSA negative. No blood cultures drawn. Objective: sleepy but awakes and makes small conversation. Cachectic. 2LNC. when asleep bipap 35% /. we've added end tital to monitor CO2 levels when off bipap. Vitals: see above Lungs: shallow inspirations without obvious wheeze. Cardiac: S1S2. mild tachycardia edema: some 1+ pitting edema to the dorsum of feet but ankles are thin with only trace edema. Disposition/Potential discharge - guarded giving strength, muscle loss, acute and chronic respiratory compromise. will likely need TCU, pallative care - 03/14-03/15 Today I spent 50minutes seeing the patient, reviewing Expanse and EPIC notes/diagnostics, discussing the care plan with our care time that includes social work, PT/OT, pharmacy, RT, jail and documenting my impressions and plan in the medical record. Exam Const: Vital Signs, click to edit/add: Vital Signs - 24 hr 03/11/25 09:59 03/11/25 11:16 03/11/25 15:00 Temperature 98.2 F Pulse Rate Pulse Rate [Right Pulse Oximeter] 111 H Respiratory Rate 22 22 Blood Pressure [Le ft Arm] 110/64 Pulse Oximetry 93 93 Oxygen Delivery Me thod Nasal Cannula BiPAP Oxygen Flow Rate 2 Fraction of Inspir ed Oxygen 0.28 0.28 03/11/25 15:00 03/11/25 15:00 03/11/25 15:00 Temperature 96.4 F L Pulse Rate 94 Pulse Rate [Right Pulse Oximeter] 88 88 Respiratory Rate 22 21 Blood Pressure [Le ft Arm] 96/55 L Pulse Oximetry 92 Oxygen Delivery Me thod BiPAP Oxygen Flow Rate Fraction of Inspir ed Oxygen 0.28 03/11/25 19:00 03/11/25 23:00 03/11/25 23:00 Temperature 98.7 F Pulse Rate 78 Pulse Rate [Right Pulse Oximeter] 96 Respiratory Rate 20 20 Blood Pressure [Le ft Arm] 101/57 L Pulse Oximetry 94 94 Oxygen Delivery Me thod Nasal Cannula Nasal Cannula Oxygen Flow Rate 2 2 Fraction of Inspir ed Oxygen 0.28 03/11/25 23:00 03/12/25 00:10 03/12/25 04:34 Temperature 98.2 F 97.8 F Pulse Rate Pulse Rate [Right Pulse Oximeter] 96 82 79 Respiratory Rate 20 20 18 Blood Pressure [Le ft Arm] 90/59 L 95/56 L Pulse Oximetry 93 92 Oxygen Delivery Me thod Room Air Room Air Oxygen Flow Rate Fraction of Inspir ed Oxygen 03/12/25 07:18 Temperature Pulse Rate 91 Pulse Rate [Right Pulse Oximeter] Respiratory Rate Blood Pressure [Le ft Arm] Pulse Oximetry Oxygen Delivery Me thod Oxygen Flow Rate Fraction of Inspir ed Oxygen Labs Labs: Laboratory Results - last 24 hr 03/10/25 03/10/25 03/11/25 06:23 14:00 08:00 WBC RBC Hgb Hct MCV MCH MCHC RDW Coeff of Riri Plt Count Neut % (Auto) Lymph % (Auto) Bartholomew % (Auto) Eos % (Auto) Baso % (Auto) Neut # (Auto) Lymph # (Auto) Bartholomew # (Auto) Eos # (Auto) Baso # (Auto) Abs Immat Gran (auto) Imm/Tot Granulo (auto) ABG pH 7.37 7.39 ABG pCO2 62 H* 59 H ABG pO2 59.8 L 60.7 L ABG HCO3 35 H 36 H ABG Total CO2 33 H 34 H ABG O2 Saturation 91 L 92 ABG Base Excess 8.5 H 9.2 H Sodium Potassium Chloride Carbon Dioxide Anion Gap BUN Creatinine Estimated Creat Clear Estimated GFR Glucose Calcium Phosphorus Magnesium Prealbumin 8.8 L 03/12/25 Unknown WBC 7.23 RBC 2.46 L Hgb 8.0 L Hct 24.1 L MCV 98 MCH 33 MCHC 33 RDW Coeff of Riri 12.7 Plt Count 271 Neut % (Auto) 62.0 Lymph % (Auto) 24.5 Bartholomew % (Auto) 9.1 Eos % (Auto) 3.7 Baso % (Auto) 0.3 Neut # (Auto) 4.48 Lymph # (Auto) 1.77 Bartholomew # (Auto) 0.70 Eos # (Auto) 0.27 Baso # (Auto) 0.02 Abs Immat Gran (auto) 0.03 Imm/Tot Granulo (auto) 0.4 ABG pH ABG pCO2 ABG pO2 ABG HCO3 ABG Total CO2 ABG O2 Saturation ABG Base Excess Sodium 132 L Potassium 4.2 Chloride 95 L Carbon Dioxide 33 H Anion Gap 4 L BUN 20 Creatinine 0.6 Estimated Creat Clear 38.87 Estimated GFR 96 Glucose 460 H* Calcium 8.5 Phosphorus 3.1 Magnesium 2.0 Prealbumin
--- NOTE | 2025-03-12 09:00 | CRLHL7_ITS ---
For Patients: As a result of the Century Cures Act, medical imaging exams and procedure reports are released immediately into your electronic medical record. You may view this report before your referring provider. If you have questions, please contact your health care provider. Technique: Fluoroscopic guided feeding tube placement. Fluoroscopy time 1 minute 46 seconds. Indication: Malnutrition Comparison: None. Findings/Impression : Using fluoroscopic guidance, a feeding tube was placed into the stomach without difficulty. Dictated by Robert Tarango MD @ 03/12/2025 10:51:25 AM (Electronically Signed)
[2025-03-12 09:21] LABS: Albumin* 2.7 g/dL (3.3-5.0)
[2025-03-12 09:24] LABS: Alanine Aminotransferase* 53 U/L (4-35); Alkaline Phosphatase* 54 U/L (40-150); Aspartate Amino Transferase* 38 U/L (12-35); Bilirubin Direct* 0.1 mg/dL (0.0-0.5); Bilirubin Total* 0.2 mg/dL (0.1-1.5); Total Protein* 5.2 g/dL (6.0-8.3)
[2025-03-12] MEDS: LORazepam 2 MG/ML inj 1 MG IVP (09:30)
[2025-03-12] MEDS: predniSONE 20 MG TABLET 40 MG PO (10:59)
[2025-03-12] MEDS: FLUOXETINE HCL 20 MG CAPSULE 40 MG PO (10:59)
[2025-03-12] MEDS: THIAMINE 100 MG TABLET PO (11:00)
[2025-03-12] MEDS: BUDESONIDE 0.5 MG/2ML NEB NEB ×2 (11:11→20:46)
[2025-03-12] MEDS: IPRAT-ALBUT 0.5-2.5 MG/3 ML NEB 1 NEB IH ×3 (11:11→20:02)
[2025-03-12 11:31] LABS: HCO3 VBG 36 mmol/L (21-28); PCO2 VBG 60 mmHG (40-50); PO2 VBG 68.4 mmHG (25-47); pH VBG 7.389 (7.32-7.43)
--- NOTE | 2025-03-12 12:13 | REH.OT ---
OT: Patient unavailable this am due to out of room for feeding tube placement, then RN reports had ativan and requesting therapy see in pm. Will reschedule to pm.
--- NOTE | 2025-03-12 14:30 | PC.SOCIAL ---
Addendum entered by AMAURI Wakefield 03/12/25 16:32: Discharge planning: Pt's daughter, Jenni, expressed interest in [facility] #[phone]; however, this worker did not have time to call them before the end of the day. Social work to follow-up as needed. Addendum entered by AMAURI Wakefield 03/12/25 16:24: Discharge planning: interior surface insulation worker also spoke to pt's two daughters about [facility] in [place] for TCU care, as they take pt's for TCU care who have more complicate pulmonary issues. The daughters were not interested in this hospital because of the [employer] reviews and the location in [place], [place]. interior surface insulation worker did talk to the clinical liaison there, Seema #[phone]/fax number #[phone], and she said they did have female beds and would be willing to review the pt's referral, but the daughter's still declined. Social work to follow-up as needed. Addendum entered by AMAURI Wakefield 03/12/25 16:18: Discharge planning: interior surface insulation worker received an email back from pt's daughter, Jenni, with a list of snf facilities that she would like this worker to look into for her mother for TCU placement. Below is the list that she sent this worker with the following results: 1. [facility] #[phone]:?They cannot accommodate a feeding tube. 2. [facility] #[phone]:?They also cannot accommodate a feeding tube.? 3. [facility] #[phone]:?They cannot accommodate a Bi-pap machine.? 4. [facility] #[phone]:?Left a message and still waiting to hear back.? 5. [facility] #[phone]:?Spoke to Admissions and they stated that they would be willing to review a referral for a female coming with a feeding tube and Bi-pap machine. Admissions stated they only have shared rooms available right now. Pt's daughter does not want a referral sent there because they only have shared rooms available right now. 6. [facility] #[phone]:?They cannot accommodate a Bi-pap that needs to be worn during most of the day. 7. [facility] #[phone]/fax #[phone]: Stated they have female beds in [place] and would be willing to review a pt that would be coming on Bi-pap and a feeding tube. interior surface insulation worker informed pt's daughter of this new via email and asked if this psychiatric social worker supervisor could send a referral and this worker has not heard back from the daughter yet. If the daughter's do allow a referral to be sent there please specify on the fax cover sheet that it is for placement at [facility]. 8. [facility] #[phone]:?They cannot accommodate a Bi-pap machine.? Social work to follow-up as needed. Original Note: Discharge planning: interior surface insulation worker submitted a referral to the [facility] for the pt and her family. Confirmation number [id number]. They will follow-up with the pt and her daughter, Jenni, to discuss resources and planning after she leaves whichever TCU facility that she goes to. Social work to follow-up as needed.
[2025-03-12] MEDS: SODIUM CHLORIDE 0.9 % (FLUSH) 10 ML SYRINGE 5 ML IVF ×2 (14:31→22:03)
--- NOTE | 2025-03-12 14:51 | PC.NURSE ---
Feeding tube placed this morning, 73 on Right secured , Isosource 1.5 @ 20/ hr infusing currently without complications. Dbl lumen PICC on Right forearm patent with TPN and fats restarted after tube placement. Patient is also using purewick draining clear urine. When she is not on Bipap patient is using 2Liters of O2 via NC. She has been tired and was placed on bipap at 1130 by RN and is still on with O2 sats @ 91%. family at bedside
[2025-03-12] MEDS: AA 5 %/CALCIUM/LYTES/DEXT 20 % 2,000 ML 45 ML IV (15:05)
[2025-03-12] MEDS: INSULIN ASPART 100 UNIT/ML SUBCUT ×2 (18:31→22:02)
[2025-03-12] MEDS: Fluticasone-Umeclidin-Vilanter [Trelegy Ellipta] 200-62.5-25 mcg 1 EACH IH (20:10)
[2025-03-12] MEDS: POTASSIUM CHLORIDE 10 MEQ CAPSULE ER 20 MEQ PO (20:46)
[2025-03-12] MEDS: ENOXAPARIN 30 MG/0.3ML INJ SUBCUT (20:47)
[2025-03-12] MEDS: NICOTINE 14 mg PATCH 1 PATCH TRANSDERMA (21:36)
[2025-03-12] MEDS: CEFPODOXIME PROXETIL 200 MG TABLET PO (21:37)
--- NOTE | 2025-03-12 22:06 | PC.NURSE ---
Patient reports small bruised area on right distal anterior wrist. Slight redness around bruise. Area outlined. Denies tenderness, no warmth noted.
[2025-03-13] VITALS (18 sets, daily range): BP systolic 99–117; BP diastolic 59–81; PULSE 80–96; RESP 16–28; TEMP 36.3–37.4; O2SAT 90–94
[2025-03-13] MEDS: LORazepam 1 MG TABLET PO ×4 (03:17→21:14)
[2025-03-13] MEDS: CALCIUM CARBONATE 500 MG CHEW PO ×2 (03:27→21:04)
[2025-03-13 06:25] LABS: PO2 VBG 63.6 mmHG (25-47); pH VBG 7.326 (7.32-7.43)
[2025-03-13 06:26] LABS: HCO3 VBG 32 mmol/L (21-28)
[2025-03-13 06:28] LABS: PCO2 VBG 62 mmHG (40-50)
[2025-03-13 06:30] LABS: Basophils Absolute Auto 0.01 K/uL (0.00-0.30); Basophils Percent Auto 0.1 % (0.0-3.0); Eosinophils Absolute Auto 0.16 K/uL (0.00-0.50); Eosinophils Percent Auto 1.7 % (0.0-7.0); Immature Granulocytes Abs Auto 0.16 K/uL (0.00-0.30); Immature Granulocytes Pct Auto 1.7 %; Lymphocytes Absolute Auto 2.09 K/uL (0.90-2.90); Lymphocytes Percent Auto 22.4 % (20-44); Mean Corpuscular HGB Conc 30 gm/dL (32-36); Mean Corpuscular Hemoglobin 30 pg (26-34); Mean Corpuscular Volume 101 fL (80-100); Neutrophils Absolute Auto 6.15 K/uL (1.7-7.0); Neutrophils Percent Auto 66.1 % (42.0-72.0); Platelet Count* 326 K/uL (140-440); RDW Coefficient of Variation % 12.9 % (11.5-15.5); Red Blood Count 2.58 m/uL (4.00-5.20); White Blood Count* 9.32 K/uL (4.50-11.00)
[2025-03-13 06:33] LABS: Hemoglobin* 7.8 gm/dL (12.0-16.0); Slide Review Reflex No
[2025-03-13 06:40] LABS: Chloride* 93 mmol/L (96-114); Potassium* 5.5 mmol/L (3.6-5.1); Sodium* 129 mmol/L (135-149)
[2025-03-13 06:42] LABS: Blood Urea Nitrogen* 22 mg/dL (7-30); Creatinine* 0.7 mg/dL (0.5-1.5); Est. Creatinine Clearance* 38.87; Estimated Glomerular Filt Rate 92 ml/min
[2025-03-13 06:43] LABS: Anion Gap 3 mEq/L (7-15); Calcium* 8.8 mg/dL (8.4-10.6); Carbon Dioxide* 33 mmol/L (20-32); Magnesium* 2.1 mg/dL (1.5-2.6); Phosphorus* 4.9 mg/dL (2.5-4.5)
--- NOTE | 2025-03-13 07:17 | PC.NURSE ---
The patient came into my care at 2300. At this time the patient was sleeping while on BiPAP but she was able to be roused for vital signs and an assessment. BiPAP management handled by my preceptor Wendy Alejandro. The patient?s lung sounds are dominated by the mechanical, whoosh, of the BiPAP when breathing out. The patient appeared to be medically stable at this time while also very tired but cooperative with our assessment. Episode of GERD pain overnight. Burning sensation.? Calcium tabs ordered. Discomfort resolved. Taking PRN Ativan whenever next available to help manage ongoing anxiety. TPN infusing. Tube feed overnight.?Blood taken in the morning via TPN. Tube feed stopped at 6am. Repositioned. ?
[2025-03-13 07:34] LABS: Glucose* 1170 mg/dL (60-115)
--- NOTE | 2025-03-13 08:17 | P.IMPN_ITS ---
Assessment and Plan Assessment and plan (1) Acute on chronic respiratory failure with hypoxia and hypercapnia: Problem comment: -Patient with chronic severe O2 dependent COPD with ongoing episodes of hypoxia and hypercapnia. Exacerbated by chronic benzodiazepine and acute opioid use in the hospital and also by bowel obstruction and then aspiration event during SVT run. -near respiratory arrest event on the evening of 03/07/2025 everted with BiPAP therapy and stabilization of paroxysmal supraventricular tachycardia. Found to have right lower lobe pneumonia which is probably due to aspiration. Initiate meropenem and vancomycin for hospital-acquired pneumonia. MRSA swab pending. Improved on BiPAP. Do not intubate status reaffirmed on 03/08/202503/09 - stable and mildly improving on BiPAP. added end-tidal to monitor CO2. MRSA neg - Vanc stopped 03/10 - CTA - no PE and pneumonia slowly improving 03/11 - slowly improving 03/12 - slow improvement. no setbacks. 03/13 - CO2 higher than expected - I think the time off bipap during the day and worsening anemia Status: Acute (2) Stage 4 very severe COPD by GOLD classification: Problem comment: -followed by Otto Kirby at [facility] [place]. -last seen November 2024; advised to continue Trelegy but could go back to Advair/Spiriva or try Breztri. smoking cessation and pulmonary rehab discussed. -PFTS show FEV1 24% predicted 0.54L. FVC 1.5L and this is 52% of predicted. FEV1/FVC is 36% -GOLD 4E -continue LAMA/LABA/ICS with duo nebs and budesonide nebs -IV/oral steroids for five days -completed qualifying data collection for bipap medical necessity. next step, once rehab has accepted, we need to work with outside agency to determine if bipap goes with patient to rehab or if it is delivered to home Status: Acute (3) Anemia in chronic illness: Problem comment: -likely from poor production; no obvious bleeding -1 unit PRBCs 03/13 Status: Acute (4) Generalized anxiety disorder: Problem comment: On chronic lorazepam (1 mg q6 prn) and fluoxetine -trial buspar 7.5mg bid on 03/09/25 - increased to 10mg bid on 03/13. -trial SL morphine for air hunger Status: Chronic (5) Pneumonia: Problem comment: New right lower lobe pneumonia likely developed 03/07 with her episode of SVT and acute respiratory failure. Initiate vancomycin and meropenem for hospital- acquired pneumonia 03/09 - MRSA neg. stop vanc. ordered legionella and strep pneumo. continue meropenem. rec'd one dose of IV steroids 03/08, oral prednisone 40 mg daily from 03/08-03/13 will repeat CXR in the am. 03/10 - L.pneumo and S.pneumo neg. 03/11 - improving 03/12 - transition meropenem to oral vantin. total abx days: 5. 03/07 evening. held vanc on 03/09. 5 days of meropenem to date. will transition to Vantin 200mg BID on am of 03/12/25 - 03/15. Status: Acute (6) Protein-calorie malnutrition, severe: Problem comment: - Also diagnosed in 2022 at [facility] This is caused by pulmonary cachexia and chronic abdominal pain of uncertain etiology. Patient has lost 9 kg/20 lb since April 2024 or approximately 2 lb a month. April 2024 she was 49 kg and now 40 kg Initiate PPN. Stop PPN when adequate oral nutrition. 03/09 - Placed central line. adding lipids. keeping total volume the same. 03/10 - PharmD calculated TPN 03/11 - plan for 03/[address] small bore feeding tube and see how she tolerates her feeds 03/12 - small bore feeding tub placed am of 03/12, nutrition in lead for formula/rate/residuals and misc guidance. 03/13 - tolerated overnight feeds - no bloating/no pain Status: Acute (7) Pulmonary cachexia due to chronic obstructive pulmonary disease: Problem comment: Her behavioral psychologist believes this is a contributor to her overall malnutrition Status: Acute (8) Tobacco use disorder: Problem comment: Urge smoking cessation. Status: Acute Subjective Date Seen: 03/13/25 Interval history: Daily Progress Note - Hospital #: 11 CC: SBO, COPD exacerbation, HAP, respiratory failure, malnutrition. 24 HOUR UPDATE: good night. tolerating enteral feeds - no pain/bloating. RN: The patient appeared to be medically stable at this time while also very tired but cooperative with our assessment. Episode of GERD pain overnight. Burning sensation.? Calcium tabs ordered. Discomfort resolved. Taking PRN Ativan wh enever next available to help manage ongoing anxiety. TPN infusing. Tube feed overnight.?Blood taken in the morning via TPN. Tube feed stopped at 6am. Repositioned. Notable Labs, Micro, Rads, Interventions: White count downtrending, 9.32 Hemoglobin is drifting down to 8.3 --> 8.0 --> 7.8 Platelet count is normal. Blood gases show normal pH but CO2 in the last two days uptrending 62, today. (more anemic ..) Renal function is intact. Creatinine clearance 35 previous labs have been erroneous as we have had issues with TPN affecting the numbers. 03/13 was drawn after TPN had completed and line flused well. LFTs have increased modestly on day 5. fluctuating. MRSA negative. No blood cultures drawn. Objective: awake and making more engaging conversation. Cachectic. 2LNC. when asleep bipap 35% 09/03. we've added end tital to monitor CO2 levels when off bipap. Vitals: see above Lungs: shallow inspirations without obvious wheeze. Cardiac: S1S2. mild tachycardia edema: none Disposition/Potential discharge - guarded giving strength, muscle loss, acute and chronic respiratory compromise. will likely need TCU, pallative care - 03/15 Today I spent 50minutes seeing the patient, reviewing Expanse and EPIC notes/diagnostics, discussing the care plan with our care time that includes social work, PT/OT, pharmacy, RT, snf and documenting my impressions and plan in the medical record. Exam Const: Vital Signs, click to edit/add: Vital Signs - 24 hr 03/12/25 11:00 03/12/25 14:46 03/12/25 15:39 Temperature 99 F Pulse Rate Pulse Rate [Right Pulse Oximeter] 81 Respiratory Rate 18 14 Blood Pressure [Le ft Arm] 114/80 Pulse Oximetry 92 93 Oxygen Delivery Me thod Nasal Cannula Nasal Cannula Oxygen Flow Rate 2 2 Fraction of Inspir ed Oxygen 0.28 03/12/25 15:42 03/12/25 15:50 03/12/25 19:00 Temperature 99.3 F 99.4 F Pulse Rate 91 Pulse Rate [Right Pulse Oximeter] 86 118 H Respiratory Rate 14 24 Blood Pressure [Le ft Arm] 115/67 131/73 Pulse Oximetry 93 93 Oxygen Delivery Me thod Nasal Cannula Nasal Cannula Oxygen Flow Rate 2 2 Fraction of Inspir ed Oxygen 03/12/25 23:00 03/12/25 23:00 03/12/25 23:00 Temperature 97.6 F Pulse Rate 91 Pulse Rate [Right Pulse Oximeter] 94 Respiratory Rate 21 21 Blood Pressure [Le ft Arm] 104/59 L Pulse Oximetry 91 94 Oxygen Delivery Me thod BiPAP BiPAP Oxygen Flow Rate Fraction of Inspir ed Oxygen 0.28 0.28 03/13/25 00:00 03/13/25 03:00 03/13/25 07:14 Temperature Pulse Rate 89 Pulse Rate [Right Pulse Oximeter] 93 Respiratory Rate 21 16 Blood Pressure [Le ft Arm] 102/67 Pulse Oximetry 94 Oxygen Delivery Me thod BiPAP Oxygen Flow Rate Fraction of Inspir ed Oxygen 0.28 Labs Labs: Laboratory Results - last 24 hr 03/12/25 03/12/25 03/13/25 08:10 Unknown 06:15 WBC 9.32 RBC 2.58 L Hgb 7.8 L* Hct 26.0 L MCV 101 H MCH 30 MCHC 30 L RDW Coeff of Riri 12.9 Plt Count 326 Neut % (Auto) 66.1 Lymph % (Auto) 22.4 Hall % (Auto) 8.0 Eos % (Auto) 1.7 Baso % (Auto) 0.1 Neut # (Auto) 6.15 Lymph # (Auto) 2.09 Hall # (Auto) 0.70 Eos # (Auto) 0.16 Baso # (Auto) 0.01 Abs Immat Gran (auto) 0.16 Imm/Tot Granulo (auto) 1.7 VBG pH 7.389 7.326 VBG pCO2 60 H 62 H* VBG pO2 68.4 H 63.6 H VBG HCO3 36 H 32 H Sodium 129 L Potassium 5.5 H Chloride 93 L Carbon Dioxide 33 H Anion Gap 3 L BUN 22 Creatinine 0.7 Estimated Creat Clear 38.87 Estimated GFR 92 Glucose 1170 H* Calcium 8.8 Phosphorus 4.9 H Magnesium 2.1 Total Bilirubin 0.2 Direct Bilirubin 0.1 AST 38 H ALT 53 H Alkaline Phosphatase 54 Total Protein 5.2 L Albumin 2.7 L Lab Acknowledgement Test Added
[2025-03-13] MEDS: POTASSIUM CHLORIDE 10 MEQ CAPSULE ER 20 MEQ PO ×2 (09:37→18:12)
[2025-03-13] MEDS: BUDESONIDE 0.5 MG/2ML NEB NEB (09:38)
[2025-03-13] MEDS: FLUOXETINE HCL 20 MG CAPSULE 40 MG PO (09:38)
[2025-03-13] MEDS: ONDANSETRON ODT 4 MG TAB PO ×2 (09:38→18:12)
[2025-03-13] MEDS: BUSPIRONE 10 MG TABLET 7.5 MG PO (09:38)
[2025-03-13] MEDS: THIAMINE 100 MG TABLET PO (09:39)
[2025-03-13] MEDS: SODIUM CHLORIDE 0.9 % (FLUSH) 10 ML SYRINGE 5 ML IVF ×2 (09:39→21:34)
[2025-03-13] MEDS: SENNOSIDES 1 TAB TABLET PO ×2 (09:39→20:53)
[2025-03-13] MEDS: CEFPODOXIME PROXETIL 200 MG TABLET PO ×2 (09:40→20:53)
[2025-03-13] MEDS: IPRAT-ALBUT 0.5-2.5 MG/3 ML NEB 1 NEB IH ×3 (09:41→20:53)
[2025-03-13] MEDS: predniSONE 20 MG TABLET 40 MG PO (09:53)
[2025-03-13 10:04] LABS: Chloride* 96 mmol/L (96-114); Sodium* 135 mmol/L (135-149)
[2025-03-13 10:07] LABS: Blood Urea Nitrogen* 24 mg/dL (7-30); Creatinine* 0.5 mg/dL (0.5-1.5); Est. Creatinine Clearance* 37.87; Estimated Glomerular Filt Rate 100 ml/min
[2025-03-13 10:08] LABS: Anion Gap 1 mEq/L (7-15); Calcium* 9.3 mg/dL (8.4-10.6); Carbon Dioxide* 38 mmol/L (20-32); Glucose* 110 mg/dL (60-115)
--- NOTE | 2025-03-13 12:07 | PC.SOCIAL ---
Social work: Received the following list of correction facilities family is interested in for pt, from her dtr Jenni by email. Called ([phone]) and faxed information (fax [phone]) to [facility] as this is their first choice and family has been in contact with this facility. side door worker to follow up as needed. 1. [place] [facility] [phone] [facility] [address]. [facility] 4. [facility] 5. [facility] [phone] 6. [facility] [phone] 7. [facility] [phone]
[2025-03-13] MEDS: MORPHINE 10 MG/0.5 ML ORAL SOLN 5 MG PO ×3 (12:26→19:32)
[2025-03-13] MEDS: Fluticasone-Umeclidin-Vilanter [Trelegy Ellipta] 200-62.5-25 mcg 1 EACH IH (17:06)
--- NOTE | 2025-03-13 17:06 | PC.SOCIAL ---
Addendum entered by MARIANELA Malave 03/14/25 09:16: REceived call back from [facility] stating they do not accept pt's on Bipap. Original Note: Discharge planning: Received call back from [facility] stating they are not contracted with pt's insurance so can not accept pt. Contacted the following facilities provided by family as acceptable placements with the listed results: 1. [facility] [phone] - Secure emailed referral to [facility]. Awaiting call back with decision on admit. 2. [facility] - Called and left message [phone] and faxed information to [phone] and awaiting call back with decision on admit. 3. [facility] - Secure emailed referral to [facility] at [facility]. Awaiting call back with decision on admit. 4. [facility] [phone] - Left message requesting call back. 5. [facility] [phone] - called and left message adn faxed referral to [phone]. 6. [facility] [phone] left message requesting call back. 7. [facility] - faxed information to [phone] and awaiting call back. central supply worker to follow up as needed.
--- NOTE | 2025-03-13 18:41 | PC.NURSE ---
Patient vitally stable and working with therapies today. Able to get up to chair and sit up for meals. 1 unit of blood administered- patient tolerated blood well. Ate 50% of dinner and using PRN zofran, ativan and morphine as needed. Nursing to continue to monitor.
[2025-03-13] MEDS: ALBUTEROL SULFATE 2.5 MG/3 ML VIAL.NEB NEB (19:33)
[2025-03-13] MEDS: BUSPIRONE 10 MG TABLET PO (20:53)
[2025-03-13] MEDS: ENOXAPARIN 30 MG/0.3ML INJ SUBCUT (20:53)
[2025-03-13] MEDS: INSULIN ASPART 100 UNIT/ML SUBCUT (21:33)
[2025-03-13] MEDS: NICOTINE 14 mg PATCH 1 PATCH TRANSDERMA (22:51)
[2025-03-14] VITALS (12 sets, daily range): BP systolic 95–117; BP diastolic 54–67; PULSE 80–96; RESP 14–20; TEMP 36.2–37.3; O2SAT 89–95
[2025-03-14] MEDS: LORazepam 1 MG TABLET PO ×4 (02:59→22:05)
--- NOTE | 2025-03-14 06:47 | PC.NURSE ---
Patient was alert and oriented and vitally stable upon initial assessment but blood pressures have been soft overnight. BiPAP is being worn at all times when patient is agreeable. OK to be off for conversation or eating with 2L NC to be placed. Lung sounds diminished in all lobes. Skin is a aleman pale in coloration and thin, fragile. Bodily they appear very thin. I was able to see the patient shift themselves in bed independently but they will need further encouragement to do so when not sleeping. Q2 turns to prevent pressure injury while chair bound and education on it?s importance for nursing home health. External catheter?in place producing medium amounts of pale-yellow urine. Tube feeds overnight. TPN no longer running. ?
--- NOTE | 2025-03-14 08:21 | P.IMPN_ITS ---
Assessment and Plan Assessment and plan (1) Acute on chronic respiratory failure with hypoxia and hypercapnia: Problem comment: -Patient with chronic severe O2 and BiPap dependent COPD with ongoing episodes of hypoxia and hypercapnia. Exacerbated by chronic benzodiazepine and acute opioid use in the hospital and also by bowel obstruction and then aspiration event during SVT run on 03/07/25. -near respiratory arrest event on the evening of 03/07/2025 everted with BiPAP therapy and stabilization of paroxysmal supraventricular tachycardia. Found to have right lower lobe pneumonia which is probably due to aspiration. Initiate meropenem and vancomycin for hospital-acquired pneumonia. MRSA neg. Eventually transitioned to oral cefpodoxime. total abx days: 7 Improved on BiPAP. Do not intubate status reaffirmed on 03/08/202503/09 - stable and mildly improving on BiPAP. added end-tidal to monitor CO2. MRSA neg - Vanc stopped 03/10 - CTA - no PE and pneumonia slowly improving 03/11 - slowly improving 03/12 - slow improvement. no setbacks. 03/13 - CO2 higher than expected - I think the time off bipap during the day and worsening anemia. Transfused 1 unit PRBCS 03/14 - CO2 normal Status: Acute (2) Stage 4 very severe COPD by GOLD classification: Problem comment: -followed by Otto Kirby at [facility] at [place]. -last seen November 2024; advised to continue Trelegy but could go back to Advair/Spiriva or try Breztri. smoking cessation and pulmonary rehab discussed. -08/2024 PFTS show FEV1 0.54L, 24% of predicted 0.54. FVC 1.5L, 52% of predicted. FEV1/FVC is 36% -GOLD 4E -continue LAMA/LABA/ICS with duo nebs and budesonide nebs -IV/oral steroids for five days -completed qualifying data collection for bipap medical necessity Status: Acute (3) Anemia in chronic illness: Problem comment: -likely from poor production; no obvious bleeding -1 unit PRBCs 03/13 Status: Acute (4) Generalized anxiety disorder: Problem comment: On chronic lorazepam (1 mg q6 prn) and fluoxetine -trial buspar 7.5mg bid on 03/09/25 - increased to 10mg bid on 03/13. -trial SL morphine for air hunger Status: Chronic (5) Pneumonia: Problem comment: New right lower lobe pneumonia likely developed 03/07 with her episode of SVT and acute respiratory failure. Initiate vancomycin and meropenem for hospital- acquired pneumonia 03/09 - MRSA neg. stop vanc. ordered legionella and strep pneumo. continue meropenem. rec'd one dose of IV steroids 03/08, oral prednisone 40 mg daily from 03/08-03/13 will repeat CXR in the am. 03/10 - L.pneumo and S.pneumo neg. 03/11 - improving 03/12 - transition meropenem to oral vantin. total abx days: 5. 03/07 evening. held vanc on 03/09. 5 days of meropenem to date. will transition to Vantin 200mg BID on am of 03/12/25 - 03/15. Status: Acute (6) Protein-calorie malnutrition, severe: Problem comment: - Also diagnosed in 2022 at [facility] This is caused by pulmonary cachexia and chronic abdominal pain of uncertain etiology. Patient has lost 9 kg/20 lb since April 2024 or approximately 2 lb a month. April 2024 she was 49 kg and now 40 kg Initiate PPN. Stop PPN when adequate oral nutrition. 03/09 - Placed central line. adding lipids. keeping total volume the same. 03/10 - PharmD calculated TPN 03/11 - plan for 03/[address] small bore feeding tube and see how she tolerates her feeds 03/12 - small bore feeding tub placed am of 03/12, nutrition in lead for formula/rate/residuals and misc guidance. - tolerated overnight feeds - no bloating/no pain Status: Acute (7) Pulmonary cachexia due to chronic obstructive pulmonary disease: Problem comment: This is a contributor to her overall malnutrition Status: Acute (8) Paroxysmal supraventricular tachycardia: Problem comment: -critical event that was aborted with a combination of adenosine and metoprolol. -aspiration event -became temporarily acidotic and critically hypercapnic Status: Acute (9) Small bowel obstruction: Problem comment: - 03/2022 s/p laparoscopic right hemicolectomy for endoscopically unresectable cecal polyps - 04/2022 Partial SBO, managed conservatively - 03/03/25 CT abd/pelvis: High grade SBO without transition point, possibly due to adhesions. NG tube removed on March 07. Advanced diet. Ongoing medical management. Patient is a very poor candidate for surgery. 03/09/25 - Clinically slowly improving. Still having ongoing abdominal pain which is an acute on chronic problem (mesenteric angina?) 03/11 - tolerated eggs; resolved. Status: Acute (10) Irritable bowel syndrome: Status: Chronic (11) Fibromyalgia: Status: Chronic (12) Gastroesophageal reflux disease: Problem comment: - PPI Status: Chronic (13) Ascending aortic aneurysm: Problem comment: 04/17/2022 echocardiogram: Ascending aorta is dilated with maximal diameter of 3.7 cm. 03/09/25 - not well visualized on 03/08 echo Status: Chronic (14) Pulmonary hypertension: Problem comment: Echocardiogram from March 2022 showed severe pulmonary hypertension with right- sided pressure of 51 mmHg plus right atrial pressure, this admission's ECHO on 03/08/25 shows the estimated right ventricular systolic pressure is 31 mmHg plus right atrial pressure. The pulmonic valve is normal. Trace pulmonary regurgitation. Status: Chronic (15) Tobacco dependence: Problem comment: - nicotine patch Status: Chronic Subjective Date Seen: 03/14/25 Interval history: Daily Progress Note - Hospital Medicine Day #: 12 CC: SBO, COPD exacerbation, HAP, respiratory failure, malnutrition. 24 HOUR UPDATE: good night. tolerating enteral feeds - no pain/bloating. RN: I was able to see the patient shift themselves in bed independently but they will need further encouragement to do so when not sleeping. Q2 turns to prevent pressure injury while chair bound and education on it?s importance for skilled nursing health. External catheter?in place producing medium amounts of pale-yellow urine. Tube feeds overnight. TPN no longer running. ? Notable Labs, Micro, Rads, Interventions: White count 9-11 K/uL Hemoglobin is drifting down to 8.3 --> 8.0 --> 7.8 (1 unit) --> Platelet count is normal. Blood gases show normal pH but CO2 in the last two days uptrending 62, today. (more anemic ..) - after transfusion, 48 Renal function is intact. Creatinine clearance 35 previous labs have been erroneous as we have had issues with TPN affecting the numbers. / was drawn after TPN had completed and line flused well. LFTs have increased modestly on day 5. fluctuating. MRSA negative. No blood cultures drawn. Objective: awake and making more engaging conversation. Cachectic. 2LNC. when asleep bipap 35% 09/03. we've added end tital to monitor CO2 levels when off bipap. Vitals: see above Lungs: shallow inspirations without obvious wheeze. Cardiac: S1S2. mild tachycardia edema: none Disposition/Potential discharge - guarded giving strength, muscle loss, acute and chronic respiratory compromise. will likely need TCU, pallative care - 03/15 Today I spent 50minutes seeing the patient, reviewing Expanse and EPIC notes/diagnostics, discussing the care plan with our care time that includes social work, PT/OT, pharmacy, RT, retirement and documenting my impressions and plan in the medical record. Exam Const: Vital Signs, click to edit/add: Vital Signs - 24 hr 03/13/25 08:24 03/13/25 08:24 03/13/25 11:00 Temperature 97.3 F L Pulse Rate Pulse Rate [Right Pulse Oximeter] 91 85 Respiratory Rate 16 16 Blood Pressure Blood Pressure [Le ft Arm] 105/66 Pulse Oximetry 94 94 93 Oxygen Delivery Me thod BiPAP BiPAP BiPAP Oxygen Flow Rate 2 Fraction of Inspir ed Oxygen 0.28 03/13/25 13:36 03/13/25 13:54 03/13/25 14:24 Temperature 97.5 F L 98.3 F 97.4 F L Pulse Rate 85 86 81 Pulse Rate [Right Pulse Oximeter] Respiratory Rate 19 19 17 Blood Pressure 104/64 107/64 105/62 Blood Pressure [Le ft Arm] Pulse Oximetry 93 93 94 Oxygen Delivery Me thod BiPAP BiPAP BiPAP Oxygen Flow Rate Fraction of Inspir ed Oxygen 03/13/25 14:54 03/13/25 15:00 03/13/25 15:00 Temperature 98.9 F 99.3 F Pulse Rate 86 Pulse Rate [Right Pulse Oximeter] 91 Respiratory Rate 20 20 Blood Pressure 105/81 Blood Pressure [Le ft Arm] 115/66 Pulse Oximetry 92 91 90 Oxygen Delivery Me thod Nasal Cannula Nasal Cannula Nasal Cannula Oxygen Flow Rate 2 2 2 Fraction of Inspir ed Oxygen 03/13/25 15:00 03/13/25 15:24 03/13/25 15:50 Temperature 99.3 F Pulse Rate 88 85 Pulse Rate [Right Pulse Oximeter] Respiratory Rate 20 Blood Pressure 112/65 Blood Pressure [Le ft Arm] Pulse Oximetry 91 Oxygen Delivery Me thod Room Air Oxygen Flow Rate 2 Fraction of Inspir ed Oxygen 28 03/13/25 15:54 03/13/25 16:00 03/13/25 16:54 Temperature 99.3 F 99.2 F Pulse Rate 88 91 Pulse Rate [Right Pulse Oximeter] 91 Respiratory Rate 20 20 18 Blood Pressure 109/76 113/68 Blood Pressure [Le ft Arm] Pulse Oximetry 90 91 Oxygen Delivery Me thod Nasal Cannula Oxygen Flow Rate 2 Fraction of Inspir ed Oxygen 03/13/25 20:20 03/13/25 22:55 03/13/25 23:00 Temperature 98.9 F 98.3 F Pulse Rate Pulse Rate [Right Pulse Oximeter] 96 86 Respiratory Rate 18 28 H Blood Pressure Blood Pressure [Le ft Arm] 117/65 99/59 L Pulse Oximetry 92 91 91 Oxygen Delivery Me thod Nasal Cannula BiPAP BiPAP Oxygen Flow Rate 2 Fraction of Inspir ed Oxygen 03/13/25 23:00 03/14/25 00:00 03/14/25 02:51 Temperature 97.2 F L Pulse Rate 80 Pulse Rate [Right Pulse Oximeter] 83 Respiratory Rate 18 16 Blood Pressure Blood Pressure [Le ft Arm] 97/62 Pulse Oximetry 95 Oxygen Delivery Me thod BiPAP Oxygen Flow Rate Fraction of Inspir ed Oxygen Labs Labs: Laboratory Results - last 24 hr 03/13/25 03/13/25 09:04 11:14 Sodium 135 Potassium 4.0 Chloride 96 Carbon Dioxide 38 H Anion Gap 1 L BUN 24 Creatinine 0.5 Estimated Creat Clear 37.87 Estimated GFR 100 Glucose 110 Calcium 9.3 Blood Type O Positive Antibody Screen NEGATIVE Crossmatch (AHG) See Detail
[2025-03-14 08:42] LABS: Hematocrit 30.7 % (33.0-51.0); Hemoglobin* 9.7 gm/dL (12.0-16.0); Mean Corpuscular HGB Conc 32 gm/dL (32-36); Mean Corpuscular Hemoglobin 29 pg (26-34); Mean Corpuscular Volume 93 fL (80-100); Platelet Count* 345 K/uL (140-440); White Blood Count* 11.02 K/uL (4.50-11.00)
[2025-03-14 08:44] LABS: HCO3 VBG 37 mmol/L (21-28); PCO2 VBG 48 mmHG (40-50); PO2 VBG 98.1 mmHG (25-47); pH VBG 7.492 (7.32-7.43)
[2025-03-14 08:46] LABS: Slide Review Reflex No
[2025-03-14 09:04] LABS: Chloride* 97 mmol/L (96-114); Sodium* 134 mmol/L (135-149)
[2025-03-14 09:05] LABS: Potassium* 4.7 mmol/L (3.6-5.1)
[2025-03-14 09:07] LABS: Blood Urea Nitrogen* 27 mg/dL (7-30); Creatinine* 0.5 mg/dL (0.5-1.5); Est. Creatinine Clearance* 44.56; Estimated Glomerular Filt Rate 100 ml/min
[2025-03-14 09:08] LABS: Anion Gap 2 mEq/L (7-15); Calcium* 9.3 mg/dL (8.4-10.6); Carbon Dioxide* 35 mmol/L (20-32); Glucose* 81 mg/dL (60-115)
[2025-03-14] MEDS: IPRAT-ALBUT 0.5-2.5 MG/3 ML NEB 1 NEB IH ×3 (09:42→21:11)
[2025-03-14] MEDS: BUSPIRONE 10 MG TABLET PO ×2 (09:42→21:22)
[2025-03-14] MEDS: MORPHINE 10 MG/0.5 ML ORAL SOLN 5 MG PO ×2 (09:57→19:43)
[2025-03-14] MEDS: ONDANSETRON ODT 4 MG TAB PO ×2 (11:45→21:23)
[2025-03-14] MEDS: MULTIVITAMIN/MINERALS 1 TABLET 1 TAB PO (11:46)
[2025-03-14] MEDS: POTASSIUM CHLORIDE 10 MEQ CAPSULE ER 20 MEQ PO (11:46)
[2025-03-14] MEDS: CEFPODOXIME PROXETIL 200 MG TABLET PO ×2 (11:46→21:23)
[2025-03-14] MEDS: FLUOXETINE HCL 20 MG CAPSULE 40 MG PO (11:46)
[2025-03-14] MEDS: THIAMINE 100 MG TABLET PO (11:47)
[2025-03-14] MEDS: SODIUM CHLORIDE 0.9 % (FLUSH) 10 ML SYRINGE 5 ML IVF ×2 (11:48→21:31)
--- NOTE | 2025-03-14 13:40 | PM.DS1 ---
DS: Providers Provider Date Seen: 03/14/25 Date of admission: 03/03/25 18:44 Primary care physician: Robert Riley MD Admitting Clinician: Coleen Bowles MD Consults: 03/03/25 18:44 Consult to Physician [CONS] Routine Comment: Consulting Provider: Joyce Doll Has provider been notified: Yes 03/03/25 23:55 Consult to Respiratory Therapy [CONS] Routine Comment: Reason(s) for RT Consult:: Consult 03/04/25 11:51 Consult to Nutrition [CONS] Routine Comment: Reason for consult:: Weight Loss 03/11/25 07:00 Consult to Occupational Therapy [CONS] Routine Comment: Reason(s) for OT Consult:: Evaluate and Treat Any Restrictions?:: No Restrictions Consult to Physical Therapy [CONS] Routine Comment: Reason(s) for PT Consult:: Evaluate and Treat Any Restrictions?:: No Restrictions 03/11/25 15:09 Consult to Physician [CONS] Routine Comment: [facility] Consulting Provider: Efren Guerrero Has provider been notified: Yes Attending Physician on discharge: Yolande Brooks MD [facility] Date of Discharge: 03/15/25 DS: Diagnosis Discharge Diagnosis (1) Acute on chronic respiratory failure with hypoxia and hypercapnia: Status: Acute Problem details: -Patient with chronic severe O2 and BiPap dependent COPD with ongoing episodes of hypoxia and hypercapnia. Exacerbated by acute opioid use in the hospital and also by bowel obstruction and then aspiration event during SVT run on 03/07/25. -near respiratory arrest event on the evening of 03/07/2025 everted with BiPAP therapy and stabilization of paroxysmal supraventricular tachycardia. Found to have right lower lobe pneumonia which is probably due to aspiration. Initiate meropenem and vancomycin for hospital-acquired pneumonia. MRSA neg. Eventually transitioned to oral cefpodoxime. total abx days: 7 Improved on BiPAP. Do not intubate status reaffirmed on 03/08/2025 BIPAP SETTINGS IPAP 14, EPAP 6, RATE 10, 28% FI02, 400-500 TIDAL VOLUMES 03/09 - stable and mildly improving on BiPAP. added end-tidal to monitor CO2 when off bipap and on 2L NCO2. MRSA neg - Vanc stopped 03/10 - CTA - no PE and pneumonia slowly improving 03/11 - slowly improving 03/12 - slow improvement. no setbacks. 03/13 - CO2 higher than expected - I think the time off bipap during the day and worsening anemia. Transfused 1 unit PRBCS 03/14 - CO2 normal (2) Stage 4 very severe COPD by GOLD classification: Status: Acute Problem details: -followed by Otto Kirby at [facility] [place]. -last seen November 2024; advised to continue Trelegy but could go back to Advair/Spiriva or try Breztri. smoking cessation and pulmonary rehab discussed. -08/2024 PFTS show FEV1 0.54L, 24% of predicted 0.54. FVC 1.5L, 52% of predicted. FEV1/FVC is 36% -GOLD 4E -continue LAMA/LABA/ICS with duo nebs and budesonide nebs -IV/oral steroids for five days -completed qualifying data collection for bipap medical necessity -needs smoking cessation, weight gain, strength gain, resp rehab (3) Anemia in chronic illness: Status: Acute Problem details: -likely from poor production; no obvious bleeding -1 unit PRBCs 03/13 (4) Generalized anxiety disorder: Status: Chronic Problem details: -identified as a central issue affecting her health -on chronic lorazepam (1 mg q6 prn) and 1mg IVP for medical tests/interventions (CT scans, Feeding tube placement) -on fluoxetine 40mg daily -trial buspar 7.5mg bid on 03/09/25 - increased to 10mg bid on 03/13 - tolerating and effective -trial SL morphine for air hunger (5) Pneumonia: Status: Acute Problem details: New right lower lobe pneumonia likely developed 03/07 with her episode of SVT and acute respiratory failure. Initiate vancomycin and meropenem for hospital-acquired pneumonia 03/09 - MRSA neg. stop vanc. ordered legionella and strep pneumo. continue meropenem. rec'd one dose of IV steroids 03/08, oral prednisone 40 mg daily from 03/08-03/13 will repeat CXR in the am. 03/10 - L.pneumo and S.pneumo neg. 03/11 - improving 03/12 - transition meropenem to oral vantin. total abx days: 7. 03/07 evening. held vanc on 03/09. 5 days of meropenem to date. will transition to Vantin 200mg BID on am of 03/12/25 - 03/14. (6) Protein-calorie malnutrition, severe: Status: Acute Problem details: - Also diagnosed in 2022 at [facility] This is caused by pulmonary cachexia and chronic abdominal pain of uncertain etiology. Patient has lost 9 kg/20 lb since April 2024 or approximately 2 lb a month. April 2024 she was 49 kg and now 40 kg Initiate PPN. Stop PPN when adequate oral nutrition. 03/09 - Placed central line. adding lipids. keeping total volume the same. 03/10 - PharmD calculated TPN 03/11 - plan for 03/[address] small bore feeding tube and see how she tolerates her feeds 03/12 - small bore feeding tub placed am of 03/12, nutrition in lead for formula/rate/residuals and misc guidance. 03/13, - tolerated overnight feeds - no bloating/no pain (7) Pulmonary cachexia due to chronic obstructive pulmonary disease: Status: Acute Problem details: This is a contributor to her overall malnutrition (8) Paroxysmal supraventricular tachycardia: Status: Acute Problem details: -critical event that was aborted with a combination of adenosine and metoprolol. -aspiration event -became temporarily acidotic and critically hypercapnic (9) Small bowel obstruction: Status: Acute Problem details: - 03/2022 s/p laparoscopic right hemicolectomy for endoscopically unresectable cecal polyps - 04/2022 Partial SBO, managed conservatively - 03/03/25 CT abd/pelvis: High grade SBO without transition point, possibly due to adhesions. NG tube removed on March 07. Advanced diet. Ongoing medical management. Patient is a very poor candidate for surgery. 03/09/25 - Clinically slowly improving. Still having ongoing abdominal pain which is an acute on chronic problem (mesenteric angina?) 03/11 - tolerated eggs; resolved. (10) Irritable bowel syndrome: Status: Chronic (11) Fibromyalgia: Status: Chronic (12) Gastroesophageal reflux disease: Status: Chronic Problem details: - PPI (13) Ascending aortic aneurysm: Status: Chronic Problem details: 04/17/2022 echocardiogram: Ascending aorta is dilated with maximal diameter of 3.7 cm. 03/09/25 - not well visualized on 03/08 echo (14) Pulmonary hypertension: Status: Chronic Problem details: Echocardiogram from March 2022 showed severe pulmonary hypertension with right-sided pressure of 51 mmHg plus right atrial pressure, this admission's ECHO on 03/08/25 shows the estimated right ventricular systolic pressure is 31 mmHg plus right atrial pressure. The pulmonic valve is normal. Trace pulmonary regurgitation. (15) Tobacco use disorder: Status: Acute Problem details: Urge smoking cessation. Nicotine patches utilized. (16) Abnormal laboratory test result: Status: Acute Problem details: -03/11 - 03/13 morning lab draws off PICC line reflected significant hyperglycemia and this is erroneous. The TPN was not adequately flushed prior to lab draw. DS: Summary Hospital Course Hospital Course: FINAL DIAGNOSIS/FOLLOW UP ISSUES: -acute on chronic hypoxic and hypercapnic respiratory failure. End-stage COPD. 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 Upon presentation for a small-bowel obstruction was maintained on the same. However after a near respiratory arrest event, she has been BiPAP dependent. Likely she was in need of BiPAP even prior to admission but now without BiPAP, several hours out of 24 she becomes hypercapnic. -chronic severe anxiety. ROOM ATTENDANT she was on fluoxetine and 1 mg lorazepam b.i.d. scheduled. It sounds as if the fluoxetine was not always being taken. Since admission we have had good success with daily fluoxetine, Ativan 1 mg q.6 hours p.r.n., and the addition of BusPar 10 mg b.i.d.. We did find that she often needed 1 mg push of Ativan for procedures like scans and feeding tube placement. -aspiration pneumonia. Likely aspirated during SVT episode. Treated with vanc and meropenem as if this was a hospital-acquired pneumonia. Position to oral Vantin. Total antibiotic days 7. -severe protein calorie malnutrition, pulmonary cachexia. With the use of peripheral nutrition via PIV, TPN via central line and then ultimately feeding tube for enteral feeds she was able to gain 10 kilos. She is eating better on her own. -small-bowel obstruction. This was initially the admitting diagnosis. This was treated conservatively and resolved. -erroneously labs - 3 days while on TPN via central line, the line was not flushed well enough and we had a abnormal labs based on TPN. Ignore. BRIEF HOSPITAL COURSE: Patient was admitted for 13 days. Synopsis of acute inpatient issues are outlined above. Chronic medical conditions with notable findings outlined above. Bianca had a 13 day complicated hospitalization, this included several days in our CCU. Initially admitted for small-bowel obstruction. On day 5 of her hospitalization she had a run of SVT with an aspiration episode. She was in respiratory compromise near arrest. Her pCO2 was greater than 100 she was acidotic. She was revived on BiPAP and did not require intubation. She has been dependent on BiPAP to keep her CO2 manageable since day 5 of admission. She has end-stage COPD. The initial small-bowel obstruction resolved with conservative care. We turned to focusing on her chronic lung disease and chronic hypoxia and hypoxemia. She has been stable on BiPAP with settings of 14/6. Rate of 10. 28% FIO2, TV 400-500. She was maintained on her home inhaler, Trelegy. We had scheduled DuoNebs. She did receive budesonide nebs for part of her hospitalization. She also received 1 dose of IV steroids and then four oral prednisone days. She did receive broad-spectrum antibiotics as described above and finished an oral course of Vantin. Her malnutrition and cachexia was only worsened by the previous in small-bowel obstruction and BiPAP dependence. We started with peripheral nutrition via PIV home and then transition to TPN via central line and ultimately she had enteral feeds with a feeding tube. Her appetite did improve at the end of hospitalization. She also became anemic over her days of hospitalization. This seem to be directly affecting her ability to manage her hypercapnia. She was transfused 1 unit of packed red blood cells on 03/13. She was stable and RN only suitable for TCU/LTAC on 03/15/2025. Her specific issues are outlined above. DISCHARGE MEDICATIONS: See Reconciled list - SIGNIFICANT CHANGES: BiPAP BusPar Specific instructions to the patient and follow-up are outlined below. REVIEW OF SYSTEMS No new chest pain Baseline chronic dyspnea exacerbated by anxiety Pain controlled No voiding difficulties Tolerating diet challenge and enteral feed PHYSICAL EXAM: CONSTITUTIONAL: Awake, alert in the recliner. Currently on 2 L nasal cannula oxygen. Hard of hearing. Does participate in care conference. GENERAL: Cachectic and below ideal body weight, mild respiratory distress VITAL SIGNS: see record. HEENT: Sclerae are anicteric. No petechiae. CARDIAC: rhythm is regular. There is no S3 or rub. No harsh murmurs. Extremities no edema with symmetrical pulses. PULM: Decreased breath sounds bilaterally. No obvious wheeze. No obvious crackles. NEURO: Speech is fluent. A brief neurologic exam is negative. SKIN: No rashes, petechiae, concerning changes PSYCHIATRIC: Euthymic. DISPOSITION: Tcu/LTAC. Time spent on discharge 37 minutes. Status at Discharge Functional status at discharge: uses cane/walker Overall status at discharge: patient is not back to baseline Time Spent with Patient Time attestation: Total time spent providing and/or coordinating discharge services: Time spent: Greater than 30 minutes Exam Const: Vital Signs, click to edit/add: Vital Signs - 24 hr 03/13/25 13:54 03/13/25 14:24 03/13/25 14:54 Temperature 98.3 F 97.4 F L 98.9 F Pulse Rate 86 81 86 Pulse Rate [Right Pulse Oximeter] Respiratory Rate 19 17 20 Blood Pressure 107/64 105/62 105/81 Blood Pressure [Le ft Arm] Pulse Oximetry 93 94 92 Oxygen Delivery Me thod BiPAP BiPAP Nasal Cannula Oxygen Flow Rate 2 Fraction of Inspir ed Oxygen 03/13/25 15:00 03/13/25 15:00 03/13/25 15:00 Temperature 99.3 F Pulse Rate 88 Pulse Rate [Right Pulse Oximeter] 91 Respiratory Rate 20 Blood Pressure Blood Pressure [Le ft Arm] 115/66 Pulse Oximetry 91 90 Oxygen Delivery Me thod Nasal Cannula Nasal Cannula Oxygen Flow Rate 2 2 Fraction of Inspir ed Oxygen 03/13/25 15:24 03/13/25 15:50 03/13/25 15:54 Temperature 99.3 F 99.3 F Pulse Rate 85 88 Pulse Rate [Right Pulse Oximeter] Respiratory Rate 20 20 Blood Pressure 112/65 109/76 Blood Pressure [Le ft Arm] Pulse Oximetry 91 90 Oxygen Delivery Me thod Room Air Nasal Cannula Oxygen Flow Rate 2 2 Fraction of Inspir ed Oxygen 03/13/25 16:00 03/13/25 16:54 03/13/25 20:20 Temperature 99.2 F 98.9 F Pulse Rate 91 Pulse Rate [Right Pulse Oximeter] 91 96 Respiratory Rate 20 18 18 Blood Pressure 113/68 Blood Pressure [Le ft Arm] 117/65 Pulse Oximetry 91 92 Oxygen Delivery Me thod Nasal Cannula Oxygen Flow Rate 2 Fraction of Inspir ed Oxygen 03/13/25 22:55 03/13/25 23:00 03/13/25 23:00 Temperature 98.3 F Pulse Rate 80 Pulse Rate [Right Pulse Oximeter] 86 Respiratory Rate 28 H Blood Pressure Blood Pressure [Le ft Arm] 99/59 L Pulse Oximetry 91 91 Oxygen Delivery Me thod BiPAP BiPAP Oxygen Flow Rate Fraction of Inspir ed Oxygen 03/14/25 00:00 03/14/25 02:51 03/14/25 08:00 Temperature 97.2 F L Pulse Rate Pulse Rate [Right Pulse Oximeter] 83 Respiratory Rate 18 16 20 Blood Pressure Blood Pressure [Le ft Arm] 97/62 Pulse Oximetry 95 Oxygen Delivery Me thod BiPAP Oxygen Flow Rate Fraction of Inspir ed Oxygen 03/14/25 09:13 03/14/25 09:13 03/14/25 09:40 Temperature Pulse Rate 80 Pulse Rate [Right Pulse Oximeter] 84 Respiratory Rate 19 18 Blood Pressure Blood Pressure [Le ft Arm] 117/60 Pulse Oximetry 95 89 Oxygen Delivery Me thod BiPAP Nasal Cannula Oxygen Flow Rate 2 Fraction of Inspir ed Oxygen DS: Data Data Completed and Pending Completed studies during hospitalization: Procedures Drainage of Stomach with Drainage Device, Via Natural or Artificial Opening (04/28/22) Insertion of Infusion Device into Superior Vena Cava, Percutaneous Approach (04/28/22) Introduction of Other Gas into Respiratory Tract, Via Natural or Artificial Opening (04/13/22) Release Omentum, Percutaneous Endoscopic Approach (04/13/22) Release Right Large Intestine, Percutaneous Approach (04/13/22) Resection of Right Large Intestine, Percutaneous Endoscopic Approach (04/13/22) Ultrasonography of Superior Vena Cava, Guidance (04/28/22) Labs on day of discharge: Labs from last 24 hours 03/14/25 03/13/25 08:25 11:14 WBC 11.02 H RBC 3.30 L Hgb 9.7 L Hct 30.7 L MCV 93 MCH 29 MCHC 32 Plt Count 345 VBG pH 7.492 H VBG pCO2 48 VBG pO2 98.1 H VBG HCO3 37 H Sodium 134 L Potassium 4.7 Chloride 97 Carbon Dioxide 35 H Anion Gap 2 L BUN 27 Creatinine 0.5 Estimated Creat Clear 44.56 Estimated GFR 100 Glucose 81 Calcium 9.3 Blood Type O Positive Antibody Screen NEGATIVE Crossmatch (AHG) See Detail Discharge Plan Discharge Disposition: [facility] Date of Admission: 03/03/25 18:44 Attending Provider on Discharge: Yolande Brooks Consulting Providers: Joyce Doll Primary Care Provider: Robert Riley Condition: Stable Discharge Medications: New potassium chloride 10 mEq Capsule, Extended Release 20 meq PO BIDWM Qty: 60 0RF buspirone 10 mg Tablet 10 mg PO BID Qty: 30 0RF Continued (DME) Home Oxygen Misc See Rx Instructions .Route Rx Instructions: As directed ipratropium-albuterol 0.5 mg-3 mg(2.5 mg base)/3 mL solution for nebulization 3 ml inhalation QID PRN (Reason: shortness of breath) Qty: 360 3RF Trelegy Ellipta 200-62.5-25 mcg blister with device 1 inh INHALATION DAILY thiamine HCl (vitamin B1) 100 mg tablet 100 mg PO QDAY Qty: 90 3RF hydroxyzine HCl 50 mg tablet 50 mg PO BID PRN (Reason: anxiety) Qty: 60 2RF multivitamin with iron-mineral Tablet 1 tab PO QDAY Qty: 100 1RF albuterol sulfate 90 mcg/actuation HFA aerosol inhaler 2 inh inhalation Q4-6H PRN (Reason: shortness of breath or wheezing) Qty: 8.5 3RF pantoprazole 40 mg tablet,delayed release (DR/EC) 40 mg PO DAILY Qty: 90 2RF fluoxetine 40 mg capsule 40 mg PO DAILY Qty: 90 1RF ergocalciferol (vitamin D2) 1,250 mcg (50,000 unit) capsule 50,000 unit PO .Once Weekly Qty: 12 1RF famotidine 20 mg tablet 20 mg PO BID PRN (Reason: GERD) Qty: 180 0RF Changed lorazepam 1 mg tablet 1 mg PO Q6H PRN (Reason: anxiety) Qty: 60 1RF Discontinued fluticasone propion-salmeterol 500-50 mcg/dose blister with device 1 inh PO BID Activity Level: Activity as Tolerated and Other Discharge Diet: High Protein/High Calorie and Other Follow Up Appointments: [facility] [Outside, Pulmonology] Referral Note: (rehab to determine timing) Otto Kirby MD [facility] [phone] Robert Riley MD [Primary Care Provider, Family Practice] Referral Note: Video appt timing TBD by rehab Forms: Omise Info Instructions Admit to: SNF Discharge Potential: Fair Length of Stay: 30-90 days Can use facility standing orders?: Yes Code Status: DNR/DNI Rehab Potential: Fair Therapy: Physical Therapy and Occupational Therapy Therapy Orders: Evaluate and Treat Oxygen: Yes Oxygen Delivery Method: Nasal Cannula Oxygen Flow Rate: BiPap at night; naps. 14/6, rate of 10, 28% FIO2. Urinary Catheter: No Orders are good >30 days: Yes
--- NOTE | 2025-03-14 15:51 | PC.SOCIAL ---
Discharge planning: loft worker apprentice contacted the following facilities today for placement for the pt with the following results... 1. [facility] [place], [place] #[phone]: Stated they cannot support a feeding tube. 2. [facility] [place], [place] #[phone]: Still waiting to hear back. [employer] staff have left multiple messages with them. loft worker apprentice was told today that there were no Admissions staff in the office because of the holiday. 3. [facility] #[phone]:?Stated they cannot support a feeding tube. 4. [facility] #[phone]: This facility does not contract with the pt's insurance so this is not an option. 5. [facility] #[phone]: They are able to review the referral. The referral was faxed to them at fax number #[phone]. 6. [facility] #[phone]:?Another message was left with Admissions today and awaiting a call back. 7. [facility] #[phone]: loft worker apprentice was told on Tuesday they could review this referral. loft worker apprentice received permission from the daughter's to fax them the referral today. The referral was faxed to fax number #[phone]. 8. [facility], [place], [place] #[phone]: They stated they have openings and can review the referral. loft worker apprentice faxed the referral to fax number #[phone]. 9. Throughout most of the day this worker was in contact with Joselyn from [facility] in [place], [place] #[phone] about pt's referral. Joselyn is reviewing the referral, but is now stating that they no longer have beds this week and possibly not even early next week. loft worker apprentice met with the family(two daughters Nanci and granddaughter Mi) and gave them updates on the referrals. loft worker apprentice also provided the family with [facility] paperwork per their request. Social work to follow-up as needed.
[2025-03-14] MEDS: Fluticasone-Umeclidin-Vilanter [Trelegy Ellipta] 200-62.5-25 mcg 1 EACH IH (19:30)
[2025-03-14] MEDS: ALBUTEROL SULFATE 2.5 MG/3 ML VIAL.NEB NEB (19:44)
[2025-03-14] MEDS: ENOXAPARIN 30 MG/0.3ML INJ SUBCUT (21:23)
[2025-03-14] MEDS: NICOTINE 14 mg PATCH 1 PATCH TRANSDERMA (22:04)
[2025-03-15] VITALS (11 sets, daily range): BP systolic 97–105; BP diastolic 57–68; PULSE 79–94; RESP 14–18; TEMP 36.3–37.4; O2SAT 91–95
[2025-03-15] MEDS: LORazepam 1 MG TABLET PO ×3 (04:29→19:56)
[2025-03-15] MEDS: MORPHINE 10 MG/0.5 ML ORAL SOLN 5 MG PO ×2 (04:29→15:14)
[2025-03-15] MEDS: ALBUTEROL SULFATE 2.5 MG/3 ML VIAL.NEB NEB ×2 (04:31→19:39)
[2025-03-15] MEDS: SODIUM CHLORIDE 0.9 % (FLUSH) 10 ML SYRINGE 5 ML IVF ×3 (05:54→21:34)
[2025-03-15 06:03] LABS: Hematocrit 30.9 % (33.0-51.0); Hemoglobin* 9.8 gm/dL (12.0-16.0); Mean Corpuscular HGB Conc 32 gm/dL (32-36); Mean Corpuscular Hemoglobin 30 pg (26-34); Mean Corpuscular Volume 94 fL (80-100); Platelet Count* 365 K/uL (140-440); Red Blood Count 3.29 m/uL (4.00-5.20); White Blood Count* 9.45 K/uL (4.50-11.00)
[2025-03-15 06:06] LABS: HCO3 VBG 40 mmol/L (21-28); PCO2 VBG 59 mmHG (40-50); pH VBG 7.432 (7.32-7.43)
[2025-03-15 06:07] LABS: Slide Review Reflex No
[2025-03-15 06:21] LABS: Chloride* 92 mmol/L (96-114); Potassium* 4.6 mmol/L (3.6-5.1); Sodium* 133 mmol/L (135-149)
[2025-03-15 06:24] LABS: Anion Gap 2 mEq/L (7-15); Blood Urea Nitrogen* 23 mg/dL (7-30); Calcium* 9.2 mg/dL (8.4-10.6); Carbon Dioxide* 39 mmol/L (20-32); Creatinine* 0.5 mg/dL (0.5-1.5); Est. Creatinine Clearance* 44.56; Estimated Glomerular Filt Rate 100 ml/min; Glucose* 118 mg/dL (60-115)
--- NOTE | 2025-03-15 06:44 | PC.NURSE ---
End of shift note [id number]: Pt A&Ox4 and able to make needs known. She has baseline anxiety which she requests PRN Ativan for. Pt remains on scheduled tube feedings and has double lumen PICC in place to RUE which is patent with dressing C/D/I. Cap of PICC replaced this AM after AM labs drawn. Pt has been denying pain when asked though requested PRN Morphine for air hunger. She pivot transfers to [facility] with assist of 1. Pt continent of bladder though also has external catheter in place for incontinence. Pt has worn BiPap overnight and has been afebrile. Tele in place with sinus arrhythmia noted. Pt refused overnight neb and SCDs and TEDs despite education provided. Pt on restful night VS per order. Pt refusing to have daily weight until she gets up this for the day when approached. Bed alarm on and call light within reach.
[2025-03-15] MEDS: POTASSIUM CHLORIDE 10 MEQ CAPSULE ER 20 MEQ PO ×2 (09:17→17:55)
[2025-03-15] MEDS: SENNOSIDES 1 TAB TABLET PO (09:18)
[2025-03-15] MEDS: IPRAT-ALBUT 0.5-2.5 MG/3 ML NEB 1 NEB IH ×2 (09:18→14:57)
[2025-03-15] MEDS: BUSPIRONE 10 MG TABLET PO ×2 (09:18→21:25)
[2025-03-15] MEDS: FLUOXETINE HCL 20 MG CAPSULE 40 MG PO (09:18)
[2025-03-15] MEDS: THIAMINE 100 MG TABLET PO (09:18)
[2025-03-15] MEDS: MULTIVITAMIN/MINERALS 1 TABLET 1 TAB PO (09:18)
[2025-03-15] MEDS: ONDANSETRON ODT 4 MG TAB PO ×2 (10:18→21:56)
--- NOTE | 2025-03-15 11:41 | PM.IMPN1 ---
Assessment and Plan Assessment and plan (1) Acute on chronic respiratory failure with hypoxia and hypercapnia: Problem comment: -Patient with chronic severe O2 and BiPap dependent COPD with ongoing episodes of hypoxia and hypercapnia. Exacerbated by acute opioid use in the hospital and also by bowel obstruction and then aspiration event during SVT run on 03/07/25. -near respiratory arrest event on the evening of 03/07/2025 everted with BiPAP therapy and stabilization of paroxysmal supraventricular tachycardia. Found to have right lower lobe pneumonia which is probably due to aspiration. Initiate meropenem and vancomycin for hospital-acquired pneumonia. MRSA neg. Eventually transitioned to oral cefpodoxime. total abx days: 7 Improved on BiPAP. Do not intubate status reaffirmed on 03/08/2025 BIPAP SETTINGS IPAP 14, EPAP 6, RATE 10, 28% FI02, 400-500 TIDAL VOLUMES 03/09 - stable and mildly improving on BiPAP. added end-tidal to monitor CO2 when off bipap and on 2L NCO2. MRSA neg - Vanc stopped 03/10 - CTA - no PE and pneumonia slowly improving 03/11 - slowly improving 03/12 - slow improvement. no setbacks. 03/13 - CO2 higher than expected - I think the time off bipap during the day and worsening anemia. Transfused 1 unit PRBCS 03/14 - CO2 normal 03/15 - CO2 elevated, she had refused overnight neb. Continue to encourage patient's compliance with treatments. Also discussed with RT. Recheck in am. Status: Acute (2) Stage 4 very severe COPD by GOLD classification: Problem comment: -followed by Otto Kirby at [facility] [place]. -last seen November 2024; advised to continue Trelegy but could go back to Advair/Spiriva or try Breztri. smoking cessation and pulmonary rehab discussed. -08/2024 PFTS show FEV1 0.54L, 24% of predicted 0.54. FVC 1.5L, 52% of predicted. FEV1/FVC is 36% -GOLD 4E -continue LAMA/LABA/ICS with duo nebs and budesonide nebs -IV/oral steroids for five days -completed qualifying data collection for bipap medical necessity -needs smoking cessation, weight gain, strength gain, resp rehab Status: Chronic (3) Anemia in chronic illness: Problem comment: -likely from poor production; no obvious bleeding -1 unit PRBCs 03/13 - 03/15 Hgb stable at 9.8 Status: Acute (4) Generalized anxiety disorder: Problem comment: -identified as a central issue affecting her health -on chronic lorazepam (1 mg q6 prn) and 1mg IVP for medical tests/interventions (CT scans, Feeding tube placement) -on fluoxetine 40mg daily -trial buspar 7.5mg bid on 03/09/25 - increased to 10mg bid on 03/13 - tolerating and effective -trial SL morphine for air hunger - 03/15 morphine use appears to be decreasing, twice a day now Status: Chronic (5) Pneumonia: Problem comment: New right lower lobe pneumonia likely developed 03/07 with her episode of SVT and acute respiratory failure. Initiate vancomycin and meropenem for hospital-acquired pneumonia 03/09 - MRSA neg. stop vanc. ordered legionella and strep pneumo. continue meropenem. rec'd one dose of IV steroids 03/08, oral prednisone 40 mg daily from 03/08-03/13 will repeat CXR in the am. 03/10 - L.pneumo and S.pneumo neg. 03/11 - improving 03/12 - transition meropenem to oral vantin. total abx days: 7. 03/07 evening. held vanc on 03/09. 5 days of meropenem to date. will transition to Vantin 200mg BID on am of 03/12/25 - 03/14. 03/15 antibiotics complete yesterday. Monitor for fever, worsening dyspnea. Status: Acute (6) Protein-calorie malnutrition, severe: Problem comment: - Also diagnosed in 2022 at [facility] This is caused by pulmonary cachexia and chronic abdominal pain of uncertain etiology. Patient has lost 9 kg/20 lb since April 2024 or approximately 2 lb a month. April 2024 she was 49 kg and now 40 kg Initiate PPN. Stop PPN when adequate oral nutrition. 03/09 - Placed central line. adding lipids. keeping total volume the same. 03/10 - PharmD calculated TPN 03/11 - plan for 03/[address] small bore feeding tube and see how she tolerates her feeds 03/12 - small bore feeding tub placed am of 03/12, nutrition in lead for formula/rate/residuals and misc guidance. 03/13, - tolerated overnight feeds - no bloating/no pain 03/15 tolerating tube feeds plus some small oral intake Status: Acute (7) Pulmonary cachexia due to chronic obstructive pulmonary disease: Problem comment: This is a contributor to her overall malnutrition Status: Acute (8) Paroxysmal supraventricular tachycardia: Problem comment: -critical event that was aborted with a combination of adenosine and metoprolol. -aspiration event -became temporarily acidotic and critically hypercapnic Status: Acute (9) Small bowel obstruction: Problem comment: - 03/2022 s/p laparoscopic right hemicolectomy for endoscopically unresectable cecal polyps - 04/2022 Partial SBO, managed conservatively - 03/03/25 CT abd/pelvis: High grade SBO without transition point, possibly due to adhesions. NG tube removed on March 07. Advanced diet. Ongoing medical management. Patient is a very poor candidate for surgery. 03/09/25 - Clinically slowly improving. Still having ongoing abdominal pain which is an acute on chronic problem (mesenteric angina?) 03/11 - tolerated eggs; resolved. Status: Resolved (10) Irritable bowel syndrome: Status: Chronic (11) Fibromyalgia: Status: Chronic (12) Gastroesophageal reflux disease: Problem comment: - PPI Status: Chronic (13) Ascending aortic aneurysm: Problem comment: 04/17/2022 echocardiogram: Ascending aorta is dilated with maximal diameter of 3.7 cm. 03/09/25 - not well visualized on 03/08 echo Status: Chronic (14) Pulmonary hypertension: Problem comment: Echocardiogram from March 2022 showed severe pulmonary hypertension with right-sided pressure of 51 mmHg plus right atrial pressure, this admission's ECHO on 03/08/25 shows the estimated right ventricular systolic pressure is 31 mmHg plus right atrial pressure. The pulmonic valve is normal. Trace pulmonary regurgitation. Status: Chronic (15) Tobacco dependence: Problem comment: - nicotine patch Status: Chronic Total Time Spent Total Time Spent: Today I spent 35 minutes seeing the patient, reviewing Expanse and EPIC notes/diagnostics/labs, discussing the care plan with our care team that includes social work, PT/OT, pharmacy, RT, nursing home and documenting my impressions and plan in the medical record. Subjective Time Seen by Provider: 09:55 Date Seen: 03/15/25 Interval history: Radha c/o mild nausea at times for which she says ondansetron has been working well. She denies pain. She states BiPAP has been going well and has no additional complaints. Exam Narrative: Exam Narrative: General: No acute distress. Awake, alert, oriented x3. Does look more alert and less ill appearing than when I last saw her for a week ago. No pallor. No jaundice. Thin, cachectic. Off BiPAP at the moment. Oropharynx: Clear. Mucous membranes moist. Dobbhoff in place. Cardiovascular: Regular rate and rhythm. No murmurs, gallops, or rubs. Respiratory: No respiratory distress. Able to speak in complete sentences. Shallow inspirations, poor air movement, no wheezes or crackles. Abdomen: Bowel sounds present. Soft, nondistended, nontender. Extremities: No lower extremity edema. Const: Vital Signs, click to edit/add: Vital Signs - 24 hr 03/14/25 12:00 03/14/25 15:00 03/14/25 15:00 Temperature 97.6 F Pulse Rate Pulse Rate [Right Pulse Oximeter] 83 85 Respiratory Rate 14 18 18 Blood Pressure [Le ft Arm] 95/54 L 107/58 L Pulse Oximetry 93 93 93 Oxygen Delivery Me thod BiPAP Nasal Cannula Nasal Cannula Oxygen Flow Rate 2 2 Fraction of Inspir ed Oxygen 03/14/25 17:01 03/14/25 19:30 03/14/25 22:24 Temperature 99.2 F Pulse Rate Pulse Rate [Right Pulse Oximeter] 96 Respiratory Rate 16 18 Blood Pressure [Le ft Arm] 112/67 Pulse Oximetry 95 95 Oxygen Delivery Me thod Nasal Cannula BiPAP Oxygen Flow Rate 2 Fraction of Inspir ed Oxygen 6 03/14/25 22:24 03/14/25 22:25 03/14/25 22:32 Temperature Pulse Rate 82 Pulse Rate [Right Pulse Oximeter] Respiratory Rate 18 18 Blood Pressure [Le ft Arm] Pulse Oximetry 95 Oxygen Delivery Me thod BiPAP Oxygen Flow Rate Fraction of Inspir ed Oxygen 03/14/25 23:55 03/15/25 02:59 03/15/25 05:54 Temperature Pulse Rate Pulse Rate [Right Pulse Oximeter] 96 Respiratory Rate 18 16 16 Blood Pressure [Le ft Arm] Pulse Oximetry 95 Oxygen Delivery Me thod BiPAP Oxygen Flow Rate Fraction of Inspir ed Oxygen 03/15/25 07:00 03/15/25 10:59 Temperature Pulse Rate Pulse Rate [Right Pulse Oximeter] 94 Respiratory Rate 14 18 Blood Pressure [Le ft Arm] 102/57 L Pulse Oximetry 92 92 Oxygen Delivery Me thod BiPAP Nasal Cannula Oxygen Flow Rate 2 Fraction of Inspir ed Oxygen Labs Labs: Laboratory Results - last 24 hr 03/15/25 05:50 WBC 9.45 RBC 3.29 L Hgb 9.8 L Hct 30.9 L MCV 94 MCH 30 MCHC 32 Plt Count 365 VBG pH 7.432 H VBG pCO2 59 H VBG pO2 51.0 H VBG HCO3 40 H Sodium 133 L Potassium 4.6 Chloride 92 L Carbon Dioxide 39 H Anion Gap 2 L BUN 23 Creatinine 0.5 Estimated Creat Clear 44.56 Estimated GFR 100 Glucose 118 H Calcium 9.2
--- NOTE | 2025-03-15 14:18 | PC.SOCIAL ---
Addendum entered by AMAURI Wakefield 03/15/25 15:04: Discharge planning: coloring room worker did speak with pt's daughters earlier this week about transport when a facility has been found for the pt and they would like non-emergent EMS. Social work to follow-up as needed. Original Note: Discharge planning: coloring room worker contacted the following facilities today for possible placement for the pt(some new facilities to contact were provided by the pt's daughter, Jenni, via email). This worker also followed up with facilities that were contacted yesterday with the following results listed below... 1. [facility] #[phone]: They are declining due to the acuity of care needed. They cannot accommodate pt's needs with their nursing staff right now.? 2. [facility] #[phone]: They plan to review this afternoon. Their Admissions staff was not in the office yesterday due to the holiday, so they are just reviewing the referral today and are behind on reviewing referrals, as well.? 3. [facility] #[phone]: They are reviewing the referral sometime today hopefully they stated. Their Admissions staff were also out of the office yesterday due to the holiday and are behind on reviewing referrals.? 4. [facility] in [place]([facility]) #[phone]: Referral has been sent to them for review.?Referral was secure emailed to Liat with [facility] who is an admissions liaison and is covering for the usual admissions liaison, Oren Whyte, today and Tuesday the , as Oren is off those days. Liat's email is: [email or web address]. 5. [facility] in [place] #[phone]: Referral was sent to them this morning and they did review it but declined due to pt's higher level of care and not being able to accommodate that right now.? 6. [facility] #[phone]: Left a message with their Admissions staff(Karon) about openings and if they can accommodate a Bi-pap and feeding tube. Waiting for a call back from them.? 7. [facility] #[phone]: Referral has been sent to their liaison for review via secure email at [email or web address]. Waiting to hear back from them. 8. [facility] #[phone]: Left a message with their Admissions staff about availability and if they can accommodate a patient with a Bi-pap and feeding tube. Waiting for a return call.? 9. [facility] #[phone]: Referral was faxed to them this morning for review at fax number #[phone]. They did state that the pt would have to provide their own Bi-pap, if they can accept. 10. [facility] #[phone]: They are reviewing the referral this afternoon. They have the same Admissions team as [facility], so they will review the referral for placement at either [facility] or [facility].? [facility] in [place], [place] still has the pt's referral for review. They need to know the days that the pt was in med/surg vs. CCU care. This worker's security site supervisor is looking into that. They do not have openings now until next week possibly. Their clinical liaison, Joselyn, did recommend for us to try [facility] in [place], as they transition a lot of their pt's to that facility for TCU care after they are done with LTAC care, but are not safe to go home. coloring room worker emailed the website for [facility] in [place] to pt's daughter Jenni to review and checked with their admissions liaison, Liat, on openings and she stated they did have openings, shared beds only. Pt's daughter, Jenni, refused a referral being sent to this facility due to their 2/5 rating and shared bedroom only status. Social work to follow-up as needed.
[2025-03-15] MEDS: Fluticasone-Umeclidin-Vilanter [Trelegy Ellipta] 200-62.5-25 mcg 1 EACH IH (17:55)
--- NOTE | 2025-03-15 19:51 | PC.NURSE ---
End of shift note: Pt A&Ox4, cooperative, and able to make needs known. Baseline anxiety present which she requests PRN medication for. A1 transfers to BS. Pt continent of bladder during shift today. External catheter in place for incontinence and urgency periods. Tolerating BIPAP and NC well. Refused lunch. Pt appears in conversation with family member with call light in reach.
[2025-03-15] MEDS: ENOXAPARIN 30 MG/0.3ML INJ SUBCUT (21:28)
[2025-03-15] MEDS: NICOTINE 14 mg PATCH 1 PATCH TRANSDERMA (21:30)
[2025-03-16] VITALS (9 sets, daily range): BP systolic 96–105; BP diastolic 53–69; PULSE 82–96; RESP 16–20; TEMP 36.5–37.3; O2SAT 90–97
[2025-03-16] MEDS: LORazepam 1 MG TABLET PO ×4 (03:08→20:27)
[2025-03-16 07:08] LABS: HCO3 VBG 39 mmol/L (21-28); PCO2 VBG 59 mmHG (40-50); PO2 VBG 51.2 mmHG (25-47); pH VBG 7.428 (7.32-7.43)
[2025-03-16 07:09] LABS: Hematocrit 31.6 % (33.0-51.0); Mean Corpuscular HGB Conc 32 gm/dL (32-36); Mean Corpuscular Hemoglobin 30 pg (26-34); Mean Corpuscular Volume 93 fL (80-100); Platelet Count* 375 K/uL (140-440); Red Blood Count 3.39 m/uL (4.00-5.20); White Blood Count* 9.72 K/uL (4.50-11.00)
[2025-03-16 07:14] LABS: Slide Review Reflex No
[2025-03-16 07:35] LABS: Chloride* 92 mmol/L (96-114); Potassium* 4.7 mmol/L (3.6-5.1); Sodium* 132 mmol/L (135-149)
[2025-03-16 07:38] LABS: Anion Gap 2 mEq/L (7-15); Blood Urea Nitrogen* 20 mg/dL (7-30); Calcium* 9.2 mg/dL (8.4-10.6); Carbon Dioxide* 38 mmol/L (20-32); Creatinine* 0.6 mg/dL (0.5-1.5); Est. Creatinine Clearance* 38.32; Estimated Glomerular Filt Rate 96 ml/min; Glucose* 118 mg/dL (60-115)
[2025-03-16] MEDS: OMEPRAZOLE 20 MG CAPSULE DR PO (07:48)
--- NOTE | 2025-03-16 08:41 | PC.NURSE ---
Shift note ([id number]): Patient pleasant, alert and oriented. Remained in bed this shift. Purewick placed. O2 sats 92% on 2 LPM via NC. 92-93% on Bipap while sleeping. Daughter at bedside during night.?
[2025-03-16] MEDS: BUSPIRONE 10 MG TABLET PO ×2 (08:51→20:18)
[2025-03-16] MEDS: MULTIVITAMIN/MINERALS 1 TABLET 1 TAB PO (08:58)
[2025-03-16] MEDS: THIAMINE 100 MG TABLET PO (08:58)
[2025-03-16] MEDS: SODIUM CHLORIDE 0.9 % (FLUSH) 10 ML SYRINGE 5 ML IVF ×2 (08:58→20:29)
[2025-03-16] MEDS: SENNOSIDES 1 TAB TABLET PO (08:58)
[2025-03-16] MEDS: IPRAT-ALBUT 0.5-2.5 MG/3 ML NEB 1 NEB IH ×3 (08:59→20:32)
[2025-03-16] MEDS: POTASSIUM CHLORIDE 10 MEQ CAPSULE ER 20 MEQ PO ×2 (08:59→17:12)
[2025-03-16] MEDS: FLUOXETINE HCL 20 MG CAPSULE 40 MG PO (08:59)
[2025-03-16] MEDS: INSULIN ASPART 100 UNIT/ML SUBCUT (09:09)
[2025-03-16] MEDS: MORPHINE 10 MG/0.5 ML ORAL SOLN 5 MG PO (13:25)
--- NOTE | 2025-03-16 15:26 | P.IMPN_ITS ---
Assessment and Plan Assessment and plan (1) Acute on chronic respiratory failure with hypoxia and hypercapnia: Problem comment: -Patient with chronic severe O2 and BiPap dependent COPD with ongoing episodes of hypoxia and hypercapnia. Exacerbated by acute opioid use in the hospital and also by bowel obstruction and then aspiration event during SVT run on 03/07/25. -near respiratory arrest event on the evening of 03/07/2025 everted with BiPAP therapy and stabilization of paroxysmal supraventricular tachycardia. Found to have right lower lobe pneumonia which is probably due to aspiration. Initiate meropenem and vancomycin for hospital-acquired pneumonia. MRSA neg. Eventually transitioned to oral cefpodoxime. total abx days: 7 Improved on BiPAP. Do not intubate status reaffirmed on 03/08/2025 BIPAP SETTINGS IPAP 14, EPAP 6, RATE 10, 28% FI02, 400-500 TIDAL VOLUMES 03/09 - stable and mildly improving on BiPAP. added end-tidal to monitor CO2 when off bipap and on 2L NCO2. MRSA neg - Vanc stopped 03/10 - CTA - no PE and pneumonia slowly improving 03/11 - slowly improving 03/12 - slow improvement. no setbacks. 03/13 - CO2 higher than expected - I think the time off bipap during the day and worsening anemia. Transfused 1 unit PRBCS 03/14 - CO2 normal 03/15 - CO2 elevated, she had refused overnight neb. Continue to encourage patient's compliance with treatments. Also discussed with RT. Recheck in am. 03/16 - pH improved, pCO2 stable Status: Acute (2) Stage 4 very severe COPD by GOLD classification: Problem comment: -followed by Otto Kirby at [facility] [place]. -last seen November 2024; advised to continue Trelegy but could go back to Advair/Spiriva or try Breztri. smoking cessation and pulmonary rehab discussed. -08/2024 PFTS show FEV1 0.54L, 24% of predicted 0.54. FVC 1.5L, 52% of predicted. FEV1/FVC is 36% -GOLD 4E -continue LAMA/LABA/ICS with duo nebs and budesonide nebs -IV/oral steroids for five days -completed qualifying data collection for bipap medical necessity -needs smoking cessation, weight gain, strength gain, resp rehab Status: Chronic (3) Anemia in chronic illness: Problem comment: -likely from poor production; no obvious bleeding -1 unit PRBCs 03/13 - 03/16 Hgb stable at 10 Status: Acute (4) Generalized anxiety disorder: Problem comment: -identified as a central issue affecting her health -on chronic lorazepam (1 mg q6 prn) and 1mg IVP for medical tests/interventions (CT scans, Feeding tube placement) -on fluoxetine 40mg daily -trial buspar 7.5mg bid on 03/09/25 - increased to 10mg bid on 03/13 - tolerating and effective -trial SL morphine for air hunger - 03/15 morphine use appears to be decreasing, twice a day now Status: Chronic (5) Pneumonia: Problem comment: New right lower lobe pneumonia likely developed 03/07 with her episode of SVT and acute respiratory failure. Initiate vancomycin and meropenem for hospital- acquired pneumonia 03/09 - MRSA neg. stop vanc. ordered legionella and strep pneumo. continue meropenem. rec'd one dose of IV steroids 03/08, oral prednisone 40 mg daily from 03/08-03/13 will repeat CXR in the am. 03/10 - L.pneumo and S.pneumo neg. 03/11 - improving 03/12 - transition meropenem to oral vantin. total abx days: 7. 03/07 evening. held vanc on 03/09. 5 days of meropenem to date. will transition to Vantin 200mg BID on am of 03/12/25 - 03/14. 03/15 antibiotics complete yesterday. Monitor for fever, worsening dyspnea. Status: Acute (6) Protein-calorie malnutrition, severe: Problem comment: - Also diagnosed in 2022 at [facility] This is caused by pulmonary cachexia and chronic abdominal pain of uncertain et iology. Patient has lost 9 kg/20 lb since April 2024 or approximately 2 lb a month. April 2024 she was 49 kg and now 40 kg Initiate PPN. Stop PPN when adequate oral nutrition. 03/09 - Placed central line. adding lipids. keeping total volume the same. 03/10 - PharmD calculated TPN 03/11 - plan for 03/[address] small bore feeding tube and see how she tolerates her feeds 03/12 - small bore feeding tub placed am of 03/12, nutrition in lead for formula/rate/residuals and misc guidance. - tolerated overnight feeds - no bloating/no pain 03/15 tolerating tube feeds plus some small oral intake 03/16 continues to tolerate tube feeds plus some oral intake Status: Acute (7) Pulmonary cachexia due to chronic obstructive pulmonary disease: Problem comment: This is a contributor to her overall malnutrition Status: Acute (8) Paroxysmal supraventricular tachycardia: Problem comment: -critical event that was aborted with a combination of adenosine and metoprolol. -aspiration event -became temporarily acidotic and critically hypercapnic Status: Acute (9) Small bowel obstruction: Problem comment: - 03/2022 s/p laparoscopic right hemicolectomy for endoscopically unresectable cecal polyps - 04/2022 Partial SBO, managed conservatively - 03/03/25 CT abd/pelvis: High grade SBO without transition point, possibly due to adhesions. NG tube removed on March 07. Advanced diet. Ongoing medical management. Patient is a very poor candidate for surgery. 03/09/25 - Clinically slowly improving. Still having ongoing abdominal pain which is an acute on chronic problem (mesenteric angina?) 03/11 - tolerated eggs; resolved. Status: Resolved (10) Irritable bowel syndrome: Status: Chronic (11) Fibromyalgia: Status: Chronic (12) Gastroesophageal reflux disease: Problem comment: - PPI Status: Chronic (13) Ascending aortic aneurysm: Problem comment: 04/17/2022 echocardiogram: Ascending aorta is dilated with maximal diameter of 3.7 cm. 03/09/25 - not well visualized on 03/08 echo Status: Chronic (14) Pulmonary hypertension: Problem comment: Echocardiogram from March 2022 showed severe pulmonary hypertension with right- sided pressure of 51 mmHg plus right atrial pressure, this admission's ECHO on 03/08/25 shows the estimated right ventricular systolic pressure is 31 mmHg plus right atrial pressure. The pulmonic valve is normal. Trace pulmonary regurgitation. Status: Chronic (15) Tobacco dependence: Problem comment: - nicotine patch Status: Chronic Plan Waiting for placement. No bed available yet. No safe discharge plan. Subjective Time Seen by Provider: 13:00 Date Seen: 03/16/25 Interval history: Bianca states she had a difficult night because the BiPAP felt too forceful. She had a nap already today on BiPAP, which she says went well. She notes the tube feed timing was off today, so she feels a bit nauseous. Exam Narrative: Exam Narrative: General: No acute distress. Awake, alert, oriented x3. No pallor. No jaundice. Thin, cachectic. Off BiPAP at the moment. Oropharynx: Clear. Mucous membranes moist. Dobbhoff in place. Cardiovascular: Regular rate and rhythm. No murmurs, gallops, or rubs. Respiratory: No respiratory distress. Able to speak in complete sentences. Shallow inspirations, poor air movement, no wheezes or crackles, unchanged. Abdomen: Bowel sounds present. Soft, nondistended, nontender. Extremities: No lower extremity edema. Const: Vital Signs, click to edit/add: Vital Signs - 24 hr 03/15/25 19:00 03/15/25 23:00 03/15/25 23:00 Temperature 99.4 F 98.1 F Pulse Rate Pulse Rate [Right Pulse Oximeter] 90 84 Respiratory Rate 16 Blood Pressure [Le ft Arm] 99/63 102/68 Pulse Oximetry 92 95 95 Oxygen Delivery Me thod Nasal Cannula Nasal Cannula BiPA P BiPAP Oxygen Flow Rate 2 03/15/25 23:33 03/16/25 02:32 03/16/25 07:00 Temperature Pulse Rate 83 Pulse Rate [Right Pulse Oximeter] 85 Respiratory Rate 20 Blood Pressure [Le ft Arm] Pulse Oximetry 92 93 Oxygen Delivery Me thod BiPAP BiPAP Oxygen Flow Rate 03/16/25 07:29 03/16/25 08:26 03/16/25 11:00 Temperature 98.8 F 97.7 F Pulse Rate 84 Pulse Rate [Right Pulse Oximeter] 83 91 Respiratory Rate 20 18 Blood Pressure [Le ft Arm] 104/62 105/69 Pulse Oximetry 93 97 Oxygen Delivery Me thod BiPAP BiPAP Oxygen Flow Rate Labs Labs: Laboratory Results - last 24 hr 03/16/25 06:45 WBC 9.72 RBC 3.39 L Hgb 10.0 L Hct 31.6 L MCV 93 MCH 30 MCHC 32 Plt Count 375 VBG pH 7.428 VBG pCO2 59 H VBG pO2 51.2 H VBG HCO3 39 H Sodium 132 L Potassium 4.7 Chloride 92 L Carbon Dioxide 38 H Anion Gap 2 L BUN 20 Creatinine 0.6 Estimated Creat Clear 38.32 Estimated GFR 96 Glucose 118 H Calcium 9.2
[2025-03-16] MEDS: Fluticasone-Umeclidin-Vilanter [Trelegy Ellipta] 200-62.5-25 mcg 1 EACH IH (17:04)
[2025-03-16] MEDS: ONDANSETRON ODT 4 MG TAB PO (17:12)
--- NOTE | 2025-03-16 18:43 | PC.NURSE ---
End of shift note [id number]: Pt A&Ox4, cooperative, and able to make needs known. Baseline anxiety present which she requests PRN medication for. A1 transfers to [facility]. BM today. Pt continent of bladder during shift today. External catheter in place for incontinence and urgency periods. Tolerating BIPAP and NC well. After multiple attempts and encouragement about applying BIPAP back on, Pt refusing due to wanting to communicate with family in the room. PICC dressing changed today. Family at bedside with call light in reach.
[2025-03-16] MEDS: ENOXAPARIN 30 MG/0.3ML INJ SUBCUT (20:28)
[2025-03-16] MEDS: NICOTINE 14 mg PATCH 1 PATCH TRANSDERMA (23:04)
[2025-03-17] VITALS (14 sets, daily range): BP systolic 99–113; BP diastolic 58–67; PULSE 82–93; RESP 16–20; TEMP 36.4–37.2; O2SAT 89–97
[2025-03-17] MEDS: OMEPRAZOLE 20 MG CAPSULE DR PO (05:06)
[2025-03-17] MEDS: LORazepam 1 MG TABLET PO ×4 (05:06→22:46)
[2025-03-17] MEDS: POTASSIUM CHLORIDE 10 MEQ CAPSULE ER 20 MEQ PO ×2 (07:39→17:00)
[2025-03-17] MEDS: IPRAT-ALBUT 0.5-2.5 MG/3 ML NEB 1 NEB IH ×3 (07:40→20:39)
[2025-03-17 07:51] LABS: HCO3 VBG 37 mmol/L (21-28); PCO2 VBG 57 mmHG (40-50)
[2025-03-17 07:54] LABS: Hematocrit 33.1 % (33.0-51.0); Hemoglobin* 10.4 gm/dL (12.0-16.0); Mean Corpuscular HGB Conc 31 gm/dL (32-36); Mean Corpuscular Hemoglobin 29 pg (26-34); Mean Corpuscular Volume 93 fL (80-100); Platelet Count* 396 K/uL (140-440); Red Blood Count 3.56 m/uL (4.00-5.20); White Blood Count* 11.34 K/uL (4.50-11.00)
[2025-03-17 08:02] LABS: Slide Review Reflex No
[2025-03-17 08:10] LABS: Chloride* 93 mmol/L (96-114); Potassium* 5.1 mmol/L (3.6-5.1); Sodium* 132 mmol/L (135-149)
[2025-03-17 08:13] LABS: Anion Gap 3 mEq/L (7-15); Blood Urea Nitrogen* 24 mg/dL (7-30); Calcium* 9.4 mg/dL (8.4-10.6); Carbon Dioxide* 36 mmol/L (20-32); Creatinine* 0.6 mg/dL (0.5-1.5); Est. Creatinine Clearance* 35.06; Estimated Glomerular Filt Rate 96 ml/min; Glucose* 110 mg/dL (60-115)
[2025-03-17] MEDS: BUSPIRONE 10 MG TABLET PO ×2 (08:14→20:40)
[2025-03-17] MEDS: MORPHINE 10 MG/0.5 ML ORAL SOLN 5 MG PO ×2 (08:14→18:56)
[2025-03-17] MEDS: FLUOXETINE HCL 20 MG CAPSULE 40 MG PO (08:14)
--- NOTE | 2025-03-17 08:32 | PC.NURSE ---
Shift note ([id number]): Patient pleasant, alert and oriented.?O2 sats 93% on Bipap while sleeping. Given PRN Anxiety medications per request. No complaints of discomfort.?
--- NOTE | 2025-03-17 08:42 | PC.NURSE ---
Shift note ([id number]): Patient pleasant, alert and oriented.?O2 sats 93% on Bipap while sleeping. Given PRN Anxiety medications per request. No complaints of discomfort.?
[2025-03-17] MEDS: ALBUTEROL SULFATE 2.5 MG/3 ML VIAL.NEB NEB (09:29)
[2025-03-17] MEDS: SENNOSIDES 1 TAB TABLET PO ×2 (10:09→20:40)
[2025-03-17] MEDS: THIAMINE 100 MG TABLET PO (10:09)
[2025-03-17] MEDS: SODIUM CHLORIDE 0.9 % (FLUSH) 10 ML SYRINGE 5 ML IVF ×2 (10:09→20:54)
[2025-03-17] MEDS: MULTIVITAMIN/MINERALS 1 TABLET 1 TAB PO (10:09)
--- NOTE | 2025-03-17 12:34 | RESP.RT ---
Pt continues on BIPAP for respiratory support. On 2L NC at times for eating and visiting with family. OT gave a shower today , which she tolerated fairly well. Pt with minimal respiratory reserves, would not over exert her. Noted her oxygenation on BIPAP VBG has trended down based on last few days. Will monitor.
--- NOTE | 2025-03-17 16:30 | PM.IMPN1 ---
Assessment and Plan Assessment and plan (1) Acute on chronic respiratory failure with hypoxia and hypercapnia: Problem comment: -Patient with chronic severe O2 and BiPap dependent COPD with ongoing episodes of hypoxia and hypercapnia. Exacerbated by acute opioid use in the hospital and also by bowel obstruction and then aspiration event during SVT run on 03/07/25. -near respiratory arrest event on the evening of 03/07/2025 everted with BiPAP therapy and stabilization of paroxysmal supraventricular tachycardia. Found to have right lower lobe pneumonia which is probably due to aspiration. Initiate meropenem and vancomycin for hospital-acquired pneumonia. MRSA neg. Eventually transitioned to oral cefpodoxime. total abx days: 7 Improved on BiPAP. Do not intubate status reaffirmed on 03/08/2025 BIPAP SETTINGS IPAP 14, EPAP 6, RATE 10, 28% FI02, 400-500 TIDAL VOLUMES 03/09 - stable and mildly improving on BiPAP. added end-tidal to monitor CO2 when off bipap and on 2L NCO2. MRSA neg - Vanc stopped 03/10 - CTA - no PE and pneumonia slowly improving 03/11 - slowly improving 03/12 - slow improvement. no setbacks. 03/13 - CO2 higher than expected - I think the time off bipap during the day and worsening anemia. Transfused 1 unit PRBCS 03/14 - CO2 normal 03/15 - CO2 elevated, she had refused overnight neb. Continue to encourage patient's compliance with treatments. Also discussed with RT. Recheck in am. 03/16 - pH improved, pCO2 stable 03/17 - stable with current BiPAP use Status: Acute (2) Stage 4 very severe COPD by GOLD classification: Problem comment: -followed by Otto Kirby at [facility] [place]. -last seen November 2024; advised to continue Trelegy but could go back to Advair/Spiriva or try Breztri. smoking cessation and pulmonary rehab discussed. -08/2024 PFTS show FEV1 0.54L, 24% of predicted 0.54. FVC 1.5L, 52% of predicted. FEV1/FVC is 36% -GOLD 4E -continue LAMA/LABA/ICS with duo nebs and budesonide nebs -IV/oral steroids for five days -completed qualifying data collection for bipap medical necessity -needs smoking cessation, weight gain, strength gain, resp rehab Status: Chronic (3) Anemia in chronic illness: Problem comment: -likely from poor production; no obvious bleeding -1 unit PRBCs 03/13 - 03/16 Hgb stable at 10 - 03/17 hemoglobin improving at 10.4 Status: Acute (4) Generalized anxiety disorder: Problem comment: -identified as a central issue affecting her health -on chronic lorazepam (1 mg q6 prn) and 1mg IVP for medical tests/interventions (CT scans, Feeding tube placement) -on fluoxetine 40mg daily -trial buspar 7.5mg bid on 03/09/25 - increased to 10mg bid on 03/13 - tolerating and effective -trial SL morphine for air hunger - 03/15 morphine use appears to be decreasing, twice a day now - 03/17 appears more settled, less anxious overall, now using morphine once a day Status: Chronic (5) Pneumonia: Problem comment: New right lower lobe pneumonia likely developed 03/07 with her episode of SVT and acute respiratory failure. Initiate vancomycin and meropenem for hospital-acquired pneumonia 03/09 - MRSA neg. stop vanc. ordered legionella and strep pneumo. continue meropenem. rec'd one dose of IV steroids 03/08, oral prednisone 40 mg daily from 03/08-03/13 will repeat CXR in the am. 03/10 - L.pneumo and S.pneumo neg. 03/11 - improving 03/12 - transition meropenem to oral vantin. total abx days: 7. 03/07 evening. held vanc on 03/09. 5 days of meropenem to date. will transition to Vantin 200mg BID on am of 03/12/25 - 03/14. 03/15 antibiotics complete yesterday. Monitor for fever, worsening dyspnea. 03/17 no fever or worsening dyspnea or hypoxia Status: Acute (6) Protein-calorie malnutrition, severe: Problem comment: - Also diagnosed in 2022 at [facility] This is caused by pulmonary cachexia and chronic abdominal pain of uncertain etiology. Patient has lost 9 kg/20 lb since April 2024 or approximately 2 lb a month. April 2024 she was 49 kg and now 40 kg Initiate PPN. Stop PPN when adequate oral nutrition. 03/09 - Placed central line. adding lipids. keeping total volume the same. 03/10 - PharmD calculated TPN 03/11 - plan for 03/[address] small bore feeding tube and see how she tolerates her feeds 03/12 - small bore feeding tub placed am of 03/12, nutrition in lead [facility] formula[facility] 03/13, - tolerated overnight feeds - no bloating/no pain 03/15 tolerating tube feeds plus some small oral intake 03/16 continues to tolerate tube feeds plus some oral intake 03/17 tolerating tube feeds well plus some oral intake. Nutrition will see tomorrow. Status: Acute (7) Pulmonary cachexia due to chronic obstructive pulmonary disease: Problem comment: This is a contributor to her overall malnutrition Status: Acute (8) Paroxysmal supraventricular tachycardia: Problem comment: -critical event that was aborted with a combination of adenosine and metoprolol. -aspiration event -became temporarily acidotic and critically hypercapnic Status: Acute (9) Small bowel obstruction: Problem comment: - 03/2022 s/p laparoscopic right hemicolectomy for endoscopically unresectable cecal polyps - 04/2022 Partial SBO, managed conservatively - 03/03/25 CT abd/pelvis: High grade SBO without transition point, possibly due to adhesions. NG tube removed on March 07. Advanced diet. Ongoing medical management. Patient is a very poor candidate for surgery. 03/09/25 - Clinically slowly improving. Still having ongoing abdominal pain which is an acute on chronic problem (mesenteric angina?) 03/11 - tolerated eggs; resolved. Status: Resolved (10) Irritable bowel syndrome: Status: Chronic (11) Fibromyalgia: Status: Chronic (12) Gastroesophageal reflux disease: Problem comment: - PPI Status: Chronic (13) Ascending aortic aneurysm: Problem comment: 04/17/2022 echocardiogram: Ascending aorta is dilated with maximal diameter of 3.7 cm. 03/09/25 - not well visualized on 03/08 echo Status: Chronic (14) Pulmonary hypertension: Problem comment: Echocardiogram from March 2022 showed severe pulmonary hypertension with right-sided pressure of 51 mmHg plus right atrial pressure, this admission's ECHO on 03/08/25 shows the estimated right ventricular systolic pressure is 31 mmHg plus right atrial pressure. The pulmonic valve is normal. Trace pulmonary regurgitation. Status: Chronic (15) Tobacco dependence: Problem comment: - nicotine patch Status: Chronic Plan Waiting for placement. No bed available yet. No safe discharge plan. Subjective Time Seen by Provider: 14:30 Date Seen: 03/17/25 Interval history: Maryam is having less nausea today. She felt BiPAP worked a little bit better last night than it did the night before. Had better sleep. She notes that her daughter, Jayshree, was just here, but I missed her few minutes. Exam Narrative: Exam Narrative: General: No acute distress. Awake, alert, oriented x3. No pallor. No jaundice. Thin, cachectic. Off BiPAP, sitting in the bed. Oropharynx: Clear. Mucous membranes moist. Dobbhoff in place. Cardiovascular: Regular rate and rhythm. No murmurs, gallops, or rubs. Respiratory: No respiratory distress. Able to speak in complete sentences. Poor air movement, no wheezes or crackles, unchanged. Abdomen: Bowel sounds present. Soft, nondistended, nontender. Extremities: No lower extremity edema. Const: Vital Signs, click to edit/add: Vital Signs - 24 hr 03/16/25 18:18 03/16/25 18:18 03/16/25 20:27 Temperature 99.1 F 99.2 F Pulse Rate Pulse Rate [Right Pulse Oximeter] 96 82 Respiratory Rate 16 16 17 Blood Pressure [Le ft Arm] 96/53 L 102/61 Pulse Oximetry 90 90 93 Oxygen Delivery Me thod Nasal Cannula Nasal Cannula Nasal Cannula Oxygen Flow Rate 2 2 2 Fraction of Inspir ed Oxygen 03/16/25 23:00 03/17/25 02:49 03/17/25 03:00 Temperature Pulse Rate 85 Pulse Rate [Right Pulse Oximeter] 82 Respiratory Rate 16 Blood Pressure [Le ft Arm] Pulse Oximetry 93 93 Oxygen Delivery Me thod BiPAP BiPAP Oxygen Flow Rate Fraction of Inspir ed Oxygen 03/17/25 05:11 03/17/25 07:00 03/17/25 07:00 Temperature 98.8 F 99 F Pulse Rate Pulse Rate [Right Pulse Oximeter] 91 86 Respiratory Rate 20 18 18 Blood Pressure [Le ft Arm] 99/64 107/58 L Pulse Oximetry 90 90 90 Oxygen Delivery Me thod Nasal Cannula Nasal Cannula Nasal Cannula Oxygen Flow Rate 2 2 2 Fraction of Inspir ed Oxygen 03/17/25 07:48 03/17/25 11:10 03/17/25 12:36 Temperature 99 F Pulse Rate 83 Pulse Rate [Right Pulse Oximeter] 83 Respiratory Rate 18 Blood Pressure [Le ft Arm] 108/67 Pulse Oximetry 97 Oxygen Delivery Me thod BiPAP Oxygen Flow Rate Fraction of Inspir ed Oxygen 28 03/17/25 14:14 03/17/25 14:17 Temperature 97.6 F Pulse Rate Pulse Rate [Right Pulse Oximeter] 82 Respiratory Rate 18 18 Blood Pressure [Le ft Arm] 103/64 Pulse Oximetry 94 94 Oxygen Delivery Me thod BiPAP BiPAP Oxygen Flow Rate Fraction of Inspir ed Oxygen Labs Labs: Laboratory Results - last 24 hr 03/17/25 07:45 WBC 11.34 H RBC 3.56 L Hgb 10.4 L Hct 33.1 MCV 93 MCH 29 MCHC 31 L Plt Count 396 VBG pH 7.420 VBG pCO2 57 H VBG pO2 38.0 VBG HCO3 37 H Sodium 132 L Potassium 5.1 Chloride 93 L Carbon Dioxide 36 H Anion Gap 3 L BUN 24 Creatinine 0.6 Estimated Creat Clear 35.06 Estimated GFR 96 Glucose 110 Calcium 9.4
[2025-03-17] MEDS: Fluticasone-Umeclidin-Vilanter [Trelegy Ellipta] 200-62.5-25 mcg 1 EACH IH (17:00)
--- NOTE | 2025-03-17 18:02 | PC.NURSE ---
End of shift note [id number]: Pt A&Ox4, cooperative, and able to make needs known. Baseline anxiety present and requesting PRN medication during shift. A1 transfers to C. Showered today with PT. Continent of the bladder. Tolerating BIPAP and NC well. Pt appears up in chair eating dinner and watching television with call light in reach.
[2025-03-17] MEDS: ENOXAPARIN 30 MG/0.3ML INJ SUBCUT (20:39)
[2025-03-17] MEDS: NICOTINE 14 mg PATCH 1 PATCH TRANSDERMA (22:45)
[2025-03-18] VITALS (11 sets, daily range): BP systolic 97–121; BP diastolic 56–69; PULSE 57–115; RESP 14–22; TEMP 36.9–37.9; O2SAT 92–95
--- NOTE | 2025-03-18 03:40 | PC.NURSE ---
Pt tolerated BiPap well overnight. Up A1 to commode. Rested well. VS unremarkable.
[2025-03-18] MEDS: LORazepam 1 MG TABLET PO ×4 (06:07→23:06)
[2025-03-18] MEDS: OMEPRAZOLE 20 MG CAPSULE DR PO (06:07)
[2025-03-18] MEDS: ALBUTEROL SULFATE 2.5 MG/3 ML VIAL.NEB NEB (06:16)
[2025-03-18 06:47] LABS: HCO3 VBG 34 mmol/L (21-28); PCO2 VBG 58 mmHG (40-50); PO2 VBG 44.2 mmHG (25-47); pH VBG 7.379 (7.32-7.43)
[2025-03-18 06:52] LABS: Hemoglobin* 10.3 gm/dL (12.0-16.0); Mean Corpuscular HGB Conc 32 gm/dL (32-36); Mean Corpuscular Hemoglobin 30 pg (26-34); Mean Corpuscular Volume 94 fL (80-100); Platelet Count* 361 K/uL (140-440); Red Blood Count 3.42 m/uL (4.00-5.20); White Blood Count* 10.82 K/uL (4.50-11.00)
[2025-03-18 06:57] LABS: Slide Review Reflex No
[2025-03-18 07:05] LABS: Chloride* 95 mmol/L (96-114)
[2025-03-18 07:06] LABS: Potassium* 4.6 mmol/L (3.6-5.1); Sodium* 133 mmol/L (135-149)
[2025-03-18 07:08] LABS: Blood Urea Nitrogen* 23 mg/dL (7-30); Creatinine* 0.6 mg/dL (0.5-1.5); Est. Creatinine Clearance* 33.62; Estimated Glomerular Filt Rate 96 ml/min
[2025-03-18 07:09] LABS: Anion Gap 4 mEq/L (7-15); Calcium* 9.3 mg/dL (8.4-10.6); Carbon Dioxide* 34 mmol/L (20-32); Glucose* 123 mg/dL (60-115)
[2025-03-18] MEDS: POTASSIUM CHLORIDE 10 MEQ CAPSULE ER 20 MEQ PO ×2 (08:24→17:46)
[2025-03-18] MEDS: ONDANSETRON ODT 4 MG TAB PO (08:25)
[2025-03-18] MEDS: IPRAT-ALBUT 0.5-2.5 MG/3 ML NEB 1 NEB IH ×3 (08:26→21:17)
[2025-03-18] MEDS: SENNOSIDES 1 TAB TABLET PO ×2 (09:10→21:16)
[2025-03-18] MEDS: BUSPIRONE 10 MG TABLET PO ×2 (09:10→21:16)
[2025-03-18] MEDS: FLUOXETINE HCL 20 MG CAPSULE 40 MG PO (09:10)
[2025-03-18] MEDS: MULTIVITAMIN/MINERALS 1 TABLET 1 TAB PO (09:10)
[2025-03-18] MEDS: THIAMINE 100 MG TABLET PO (09:10)
[2025-03-18] MEDS: SODIUM CHLORIDE 0.9 % (FLUSH) 10 ML SYRINGE 5 ML IVF ×2 (09:11→21:20)
--- NOTE | 2025-03-18 12:23 | PC.SOCIAL ---
Addendum entered by MARIANELA Malave 03/18/25 16:39: Received call from Norma ([phone]) at [facility] stating they have received prior auth from pt's insurance and she can admit tomorrow. Facility requested a call in AM to conform pt is still ready for discharge with no changes. Tomorrow, nurse to nurse can be completed prior to discharge to [phone]. Physician to physician call will be completed prior to discharge and phone number for this will be confirmed tomorrow. Facility is requesting pt be picked up by EMS at 11:00am. Address of facility is [address], [address] floor, [place] [address]; phone [phone]. cemetery worker sppoke with pt's dtr who is aware and pleased with this plan. cemetery worker to follow up as needed. Original Note: Discharge planning: Reached out to the TCU and LTAC facilities who had not yet responded with a decision on admit last Tuesday with 1. [facility] #[phone]: Spoke with Trev. Faxes updated information on pt and received call back that they have medically accepted pt and have a bed available. The facility has submitted information to [employer] for prior auth and expect to receive a decision by tomorrow. Facility states they can accept the pt when prior auth is received. Called dtr Jenni who is pleased with this update and agrees to pt going ot this facility if insurance authorizes. cemetery worker to follow up as needed. 2. [facility] #[phone]: Declined, stating they can not meet her needs. 3. [facility] [place]([facility]) #[phone]: Cannot accept feeding tube. 4. [facility] #[phone]: No bed available. 5. [facility] #[phone]: Emailed [email or web address] requesting decision on admit. 6.. [facility] #[phone]: Cannot accept nasal feeding tube or Bipap. 7.. [facility] #[phone]: No beds available. cemetery worker to follow up as needed.
--- NOTE | 2025-03-18 12:34 | CRLHL7_ITS ---
For Patients: As a result of the Century Cures Act, medical imaging exams and procedure reports are released immediately into your electronic medical record. You may view this report before your referring provider. If you have questions, please contact your health care provider. INDICATION: Chest pain. TECHNIQUE: Chest 1 views. COMPARISON: None. FINDINGS: Cardiovascular and mediastinum: Cardiomediastinal silhouette is within normal limits. Right approach PICC with distal tip at the low SVC. Dobbhoff feeding tube is identified with distal tip at the superior mediastinum. Likely within the esophagus however tracheal placement not entirely excluded. Lungs and pleural spaces: Lungs are clear. No sign of pleural effusion. No pneumothorax. Bones and soft tissues: Unremarkable for age. IMPRESSION: Dobbhoff tube terminates in the upper mediastinum likely within the esophagus however tracheal placement not entirely excluded. Dictated by Saad Moreau MD @ 03/18/2025 1:12:59 PM (Electronically Signed)
--- NOTE | 2025-03-18 13:16 | CRLHL7_ITS ---
For Patients: As a result of the Century Cures Act, medical imaging exams and procedure reports are released immediately into your electronic medical record. You may view this report before your referring provider. If you have questions, please contact your health care provider. INDICATION: Dobhoff feeding tube reposition. TECHNIQUE: Abdomen 1 view. COMPARISON: Earlier same day chest radiograph. Abdominal radiograph 03/04/2025. FINDINGS: Enteric tube with tip projected over the stomach. There is a dilated small bowel loop in the left abdomen measuring 3.2 cm in diameter. No significant formed stool. No sign of free air. Surgical clips right upper quadrant and right lower quadrant. The lung bases are clear. The bones are unremarkable. IMPRESSION: 1. Enteric tube with tip projected over the stomach. 2. Dilated small bowel loop in the left abdomen. Dictated by Sherry Pompa MD @ 03/18/2025 3:01:30 PM (Electronically Signed)
[2025-03-18] MEDS: ACETAMINOPHEN 325 MG TABLET 650 MG PO (13:59)
[2025-03-18] MEDS: MORPHINE 10 MG/0.5 ML ORAL SOLN 5 MG PO ×3 (13:59→21:17)
[2025-03-18] MEDS: CALCIUM CARBONATE 500 MG CHEW PO (14:02)
--- NOTE | 2025-03-18 14:59 | P.IMPN_ITS ---
Assessment and Plan Assessment and plan (1) Acute on chronic respiratory failure with hypoxia and hypercapnia: Problem comment: -Patient with chronic severe O2 and BiPap dependent COPD with ongoing episodes of hypoxia and hypercapnia. Exacerbated by acute opioid use in the hospital and also by bowel obstruction and then aspiration event during SVT run on 03/07/25. -near respiratory arrest event on the evening of 03/07/2025 everted with BiPAP therapy and stabilization of paroxysmal supraventricular tachycardia. Found to have right lower lobe pneumonia which is probably due to aspiration. Initiate meropenem and vancomycin for hospital-acquired pneumonia. MRSA neg. Eventually transitioned to oral cefpodoxime. total abx days: 7 Improved on BiPAP. Do not intubate status reaffirmed on 03/08/2025 BIPAP SETTINGS IPAP 14, EPAP 6, RATE 10, 28% FI02, 400-500 TIDAL VOLUMES 03/09 - stable and mildly improving on BiPAP. added end-tidal to monitor CO2 when off bipap and on 2L NCO2. MRSA neg - Vanc stopped 03/10 - CTA - no PE and pneumonia slowly improving 03/11 - slowly improving 03/12 - slow improvement. no setbacks. 03/13 - CO2 higher than expected - I think the time off bipap during the day and worsening anemia. Transfused 1 unit PRBCS 03/14 - CO2 normal 03/15 - CO2 elevated, she had refused overnight neb. Continue to encourage patient's compliance with treatments. Also discussed with RT. Recheck in am. 03/16 - pH improved, pCO2 stable 03/17 - stable with current BiPAP use 03/18 - stable, continue current BiPAP Status: Acute (2) Stage 4 very severe COPD by GOLD classification: Problem comment: -followed by Otto Kirby at [facility] [place]. -last seen November 2024; advised to continue Trelegy but could go back to Advair/Spiriva or try Breztri. smoking cessation and pulmonary rehab discussed. -08/2024 PFTS show FEV1 0.54L, 24% of predicted 0.54. FVC 1.5L, 52% of predicted. FEV1/FVC is 36% -GOLD 4E -continue LAMA/LABA/ICS with duo nebs and budesonide nebs -IV/oral steroids for five days -completed qualifying data collection for bipap medical necessity -needs smoking cessation, weight gain, strength gain, resp rehab Status: Chronic (3) Anemia in chronic illness: Problem comment: -likely from poor production; no obvious bleeding -1 unit PRBCs 03/13 - 03/16 Hgb stable at 10 - 03/17 hemoglobin improving at 10.4 - 03/18 hbg 10.3, stable Status: Acute (4) Generalized anxiety disorder: Problem comment: -identified as a central issue affecting her health -on chronic lorazepam (1 mg q6 prn) and 1mg IVP for medical tests/interventions (CT scans, Feeding tube placement) -on fluoxetine 40mg daily -trial buspar 7.5mg bid on 03/09/25 - increased to 10mg bid on 03/13 - tolerating and effective -trial SL morphine for air hunger - 03/15 morphine use appears to be decreasing, twice a day now - 03/17 appears more settled, less anxious overall, now using morphine once a day Status: Chronic (5) Pneumonia: Problem comment: New right lower lobe pneumonia likely developed 03/07 with her episode of SVT and acute respiratory failure. Initiate vancomycin and meropenem for hospital-ac quired pneumonia 03/09 - MRSA neg. stop vanc. ordered legionella and strep pneumo. continue meropenem. rec'd one dose of IV steroids 03/08, oral prednisone 40 mg daily from 03/08-03/13 will repeat CXR in the am. 03/10 - L.pneumo and S.pneumo neg. 03/11 - improving 03/12 - transition meropenem to oral vantin. total abx days: 7. 03/07 evening. held vanc on 03/09. 5 days of meropenem to date. will transition to Vantin 200mg BID on am of 03/12/25 - 03/14. 03/15 antibiotics complete yesterday. Monitor for fever, worsening dyspnea. 03/17 no fever or worsening dyspnea or hypoxia Status: Acute (6) Protein-calorie malnutrition, severe: Problem comment: - Also diagnosed in 2022 at [facility] This is caused by pulmonary cachexia and chronic abdominal pain of uncertain etiology. Patient has lost 9 kg/20 lb since April 2024 or approximately 2 lb a month. April 2024 she was 49 kg and now 40 kg Initiate PPN. Stop PPN when adequate oral nutrition. 03/09 - Placed central line. adding lipids. keeping total volume the same. 03/10 - PharmD calculated TPN 03/11 - plan for 03/[address] small bore feeding tube and see how she tolerates her feeds 03/12 - small bore feeding tub placed am of 03/12, nutrition in lead for formula/rate/residuals and misc guidance. 03/13, - tolerated overnight feeds - no bloating/no pain 03/15 tolerating tube feeds plus some small oral intake 03/16 continues to tolerate tube feeds plus some oral intake 03/17 tolerating tube feeds well plus some oral intake. Nutrition will see wilfrid davila. 03/18 feeding tube advanced and back in place at 55cm. Continue tube feeds as per nutrition recs. Status: Acute (7) Pulmonary cachexia due to chronic obstructive pulmonary disease: Problem comment: This is a contributor to her overall malnutrition Status: Acute (8) Paroxysmal supraventricular tachycardia: Problem comment: -critical event that was aborted with a combination of adenosine and metoprolol. -aspiration event -became temporarily acidotic and critically hypercapnic Status: Acute (9) Small bowel obstruction: Problem comment: - 03/2022 s/p laparoscopic right hemicolectomy for endoscopically unresectable cecal polyps - 04/2022 Partial SBO, managed conservatively - 03/03/25 CT abd/pelvis: High grade SBO without transition point, possibly due to adhesions. NG tube removed on March 07. Advanced diet. Ongoing medical management. Patient is a very poor candidate for surgery. 03/09/25 - Clinically slowly improving. Still having ongoing abdominal pain which is an acute on chronic problem (mesenteric angina?) 03/11 - tolerated eggs; resolved. Status: Resolved (10) Irritable bowel syndrome: Status: Chronic (11) Fibromyalgia: Status: Chronic (12) Gastroesophageal reflux disease: Problem comment: - PPI Status: Chronic (13) Ascending aortic aneurysm: Problem comment: 04/17/2022 echocardiogram: Ascending aorta is dilated with maximal diameter of 3.7 cm. 03/09/25 - not well visualized on 03/08 echo Status: Chronic (14) Pulmonary hypertension: Problem comment: Echocardiogram from March 2022 showed severe pulmonary hypertension with right- sided pressure of 51 mmHg plus right atrial pressure, this admission's ECHO on 03/08/25 shows the estimated right ventricular systolic pressure is 31 mmHg plus right atrial pressure. The pulmonic valve is normal. Trace pulmonary regurgitation. Status: Chronic (15) Tobacco dependence: Problem comment: - nicotine patch Status: Chronic Plan Bed available at [facility] tomorrow. Total Time Spent Total Time Spent: Today I spent 50minutes seeing the patient, monitoring advance of NG tube, reviewing Expanse and EPIC notes/diagnostics/labs, discussing the care plan with our care team that includes social work, PT/OT, pharmacy, RT, senior care and documenting my impressions and plan in the medical record. Subjective Time Seen by Provider: 08:01 Date Seen: 03/18/25 Interval history: Bianca denies complaints. Her nurse noted the dobhoff feeding tube appeared too long out the nares. An XR today confirmed that it had pulled out to some degree, but was still past the epiglottis. Our radiologist had already left for the day, so I spoke with Dr. Theodore from general surgery, who thought it would be okay to advance and reimage. We advanced the tube to 55 cm and reimaged. Bianca tolerated this well, without any respiratory distress or coughing. Exam Narrative: Exam Narrative: General: No acute distress. Awake, alert, oriented x3. No pallor. No jaundice. Off BiPAP, sitting in the bedside chair. Oropharynx: Clear. Mucous membranes moist. Dobbhoff in nares. Cardiovascular: Regular rate and rhythm. No murmurs, gallops, or rubs. Respiratory: No respiratory distress. Able to speak in complete sentences. Poor air movement, no wheezes or crackles, unchanged. Extremities: No lower extremity edema. Const: Vital Signs, click to edit/add: Vital Signs - 24 hr 03/17/25 16:30 03/17/25 19:15 03/17/25 22:51 Temperature 98.9 F 97.9 F Pulse Rate 87 Pulse Rate [Right Pulse Oximeter] 93 84 Respiratory Rate 16 16 Blood Pressure [Le ft Arm] 110/64 113/64 Pulse Oximetry 96 89 Oxygen Delivery Me thod Nasal Cannula Room Air Oxygen Flow Rate 2 Fraction of Inspir ed Oxygen 03/17/25 23:11 03/17/25 23:11 03/17/25 23:19 Temperature Pulse Rate Pulse Rate [Right Pulse Oximeter] 84 Respiratory Rate 16 16 16 Blood Pressure [Le ft Arm] Pulse Oximetry 89 Oxygen Delivery Me thod Room Air Oxygen Flow Rate 0 Fraction of Inspir ed Oxygen 03/17/25 23:54 03/18/25 02:39 03/18/25 06:03 Temperature Pulse Rate 82 57 L Pulse Rate [Right Pulse Oximeter] 88 Respiratory Rate 16 Blood Pressure [Le ft Arm] Pulse Oximetry 94 Oxygen Delivery Me thod BiPAP Oxygen Flow Rate Fraction of Inspir ed Oxygen 28 03/18/25 06:14 03/18/25 09:15 03/18/25 09:15 Temperature Pulse Rate Pulse Rate [Right Pulse Oximeter] 115 H Respiratory Rate 16 16 16 Blood Pressure [Le ft Arm] Pulse Oximetry 93 Oxygen Delivery Me thod Nasal Cannula BiPA P Oxygen Flow Rate 2 Fraction of Inspir ed Oxygen 03/18/25 09:15 03/18/25 10:20 03/18/25 12:10 Temperature 99.6 F 98.4 F Pulse Rate Pulse Rate [Right Pulse Oximeter] 115 H 85 Respiratory Rate 16 14 Blood Pressure [Le ft Arm] 121/63 99/57 L Pulse Oximetry 94 95 Oxygen Delivery Me thod Nasal Cannula BiPA P BiPAP Oxygen Flow Rate 2 Fraction of Inspir ed Oxygen 28 28 Labs Labs: Laboratory Results - last 24 hr 03/18/25 06:35 WBC 10.82 RBC 3.42 L Hgb 10.3 L Hct 32.0 L MCV 94 MCH 30 MCHC 32 Plt Count 361 VBG pH 7.379 VBG pCO2 58 H VBG pO2 44.2 VBG HCO3 34 H Sodium 133 L Potassium 4.6 Chloride 95 L Carbon Dioxide 34 H Anion Gap 4 L BUN 23 Creatinine 0.6 Estimated Creat Clear 33.62 Estimated GFR 96 Glucose 123 H Calcium 9.3 Ordering Physician: Coleen Bowles M.D. Date of Service: 03/18/25 Procedure(s): XR chest 1V portable Accession Number(s): [id number] cc: Coleen Bowles M.D.; Robert Riley M.D.~ For Patients: As a result of the 21st Century Cures Act, medical imaging exams and procedure reports are released immediately into your electronic medical record. You may view this report before your referring provider. If you have questions, please contact your health care provider. INDICATION: Chest pain. TECHNIQUE: Chest 1 views. COMPARISON: None. FINDINGS: Cardiovascular and mediastinum: Cardiomediastinal silhouette is within normal limits. Right approach PICC with distal tip at the low SVC. Dobbhoff feeding tube is identified with distal tip at the superior mediastinum. Likely within the esophagus however tracheal placement not entirely excluded. Lungs and pleural spaces: Lungs are clear. No sign of pleural effusion. No pneumothorax. Bones and soft tissues: Unremarkable for age. IMPRESSION: Dobbhoff tube terminates in the upper mediastinum likely within the esophagus however tracheal placement not entirely excluded. Dictated by Saad Moreau MD @ 03/18/2025 1:12:59 PM (Electronically Signed) Ordering Physician: Coleen Bowles M.D. Date of Service: 03/18/25 Procedure(s): XR abdomen 1V Accession Number(s): [id number] cc: Coleen Bowles M.D.; Robert Riley M.D.~ For Patients: As a result of the Cures Act, medical imaging exams and procedure reports are released immediately into your electronic medical record. You may view this report before your referring provider. If you have questions, please contact your health care provider. INDICATION: Dobhoff feeding tube reposition. TECHNIQUE: Abdomen 1 view. COMPARISON: Earlier same day chest radiograph. Abdominal radiograph 03/04/2025. FINDINGS: Enteric tube with tip projected over the stomach. There is a dilated small bowel loop in the left abdomen measuring 3.2 cm in diameter. No significant formed stool. No sign of free air. Surgical clips right upper quadrant and right lower quadrant. The lung bases are clear. The bones are unremarkable. IMPRESSION: 1. Enteric tube with tip projected over the stomach. 2. Dilated small bowel loop in the left abdomen. Dictated by Sherry Pompa MD @ 03/18/2025 3:01:30 PM (Electronically Signed)
[2025-03-18] MEDS: Fluticasone-Umeclidin-Vilanter [Trelegy Ellipta] 200-62.5-25 mcg 1 EACH IH (19:02)
--- NOTE | 2025-03-18 19:09 | PC.NURSE ---
End of Shift: Patient pleasant and cooperative. Patient vitally stable, lungs clear, BS WNL, PICC intact. Patient on 2 L NS when awake with sats in low to mid 90s, otherwise patient used Bipap for sleep and naps. Patient is 1 assist/walker. Patient declines pain, but did have discomfort with further insertion of NG. Patient's NG had dislodged to 20 and was inserted to 55. Zophran given once upon patients request before breakfast, tylenol given once, for throat after appropriate NG placement. Ativan and morphine given twice for anxiety. Patient tolerating regular diet, urinating well, and had 2 hard BMs. Tele=NSR
[2025-03-18 21:08] LABS: Appearance Urine Clear (Clear); Bilirubin Urine Negative (Negative); Blood Urine Negative (Negative); Color Urine Yellow (Yellow); Glucose Urine Negative (Negative); Ketones Urine Negative (Negative); Leukocyte Esterase Urine Negative (Negative); Nitrite Urine Negative (Negative); Protein Urine Negative (Negative); Specific Gravity Urine 1.015 (1.000-1.030); Urobilinogen Urine 0.2 (0.2-1.0)
[2025-03-18] MEDS: ENOXAPARIN 30 MG/0.3ML INJ SUBCUT (21:17)
[2025-03-18] MEDS: NICOTINE 14 mg PATCH 1 PATCH TRANSDERMA (21:20)
--- NOTE | 2025-03-18 22:31 | W.PM.CROSSCO ---
Subjective Subjective Date Seen: 03/18/25 Principal diagnosis: End Stage COPD; GOLD4 Interval history: 69-year-old female with prolonged hospitalization for management of small bowel obstruction, malnutrition, severe COPD is seen tonight because she had a low-grade fever of 100.3. I see that her temperature was 99.6? earlier today. She reports no new symptoms. Specifically denies any pain, cold, cough, worsening shortness of breath, vomiting, diarrhea, urinary symptoms, extremity swelling or pain. She had a chest x-ray earlier today because her NG feeding tube was coming out. It showed no infiltrates. Objective Objective Data Details: She is alert and appears in no distress. Speech is normal. Respirations with decreased breath sounds but no focal consolidation or crackles. Cardiovascular: S1, S2, regular rate and rhythm. Abdomen is soft without tenderness or mass. Extremities without edema. No rash. Assessment and Plan Assessment and plan (1) Low grade fever: Problem comment: Patient is asymptomatic with a temperature of 100.3? F. chest x-ray and urinalysis are unremarkable. Other labs from earlier today are unremarkable. Continue to observe overnight and further investigation if increasing fever or new focal symptoms. Status: Acute Total Time Spent Total Time Spent: Total time spent is 30 minutes in coordination of care and discussing with patient and her daughter and other providers ongoing evaluation and management
[2025-03-19] MEDS: IPRAT-ALBUT 0.5-2.5 MG/3 ML NEB 1 NEB IH ×2 (02:26→08:50)
[2025-03-19] MEDS: MORPHINE 10 MG/0.5 ML ORAL SOLN 5 MG PO ×2 (02:31→08:51)
[2025-03-19] MEDS: LORazepam 1 MG TABLET PO ×2 (04:54→10:52)
[2025-03-19 04:58] VITALS: RESP 20
[2025-03-19 06:30] LABS: HCO3 VBG 35 mmol/L (21-28); PO2 VBG 59.1 mmHG (25-47); pH VBG 7.368 (7.32-7.43)
[2025-03-19 06:33] LABS: PCO2 VBG 61 mmHG (40-50)
[2025-03-19 06:47] LABS: Chloride* 95 mmol/L (96-114); Potassium* 4.6 mmol/L (3.6-5.1); Sodium* 132 mmol/L (135-149)
[2025-03-19 06:50] LABS: Anion Gap 4 mEq/L (7-15); Blood Urea Nitrogen* 26 mg/dL (7-30); Carbon Dioxide* 33 mmol/L (20-32); Creatinine* 0.6 mg/dL (0.5-1.5); Est. Creatinine Clearance* 31.41; Estimated Glomerular Filt Rate 96 ml/min; Glucose* 131 mg/dL (60-115)
--- NOTE | 2025-03-19 06:53 | PC.NURSE ---
Pt alert and oriented. Pt pleasant and cooperative. Pt had minimal complaints of pain see EMAR. Pt up with assist of one. Pt slept well. Pt to D/C to TCU. VSS. Feeding tube at 55.?
[2025-03-19 07:00] VITALS: PULSE 86; RESP 20; O2SAT 92
[2025-03-19] MEDS: BUSPIRONE 10 MG TABLET PO (08:50)
[2025-03-19] MEDS: SENNOSIDES 1 TAB TABLET PO (08:50)
[2025-03-19] MEDS: FLUOXETINE HCL 20 MG CAPSULE 40 MG PO (08:50)
[2025-03-19] MEDS: OMEPRAZOLE 20 MG CAPSULE DR PO (08:50)
[2025-03-19] MEDS: THIAMINE 100 MG TABLET PO (08:50)
[2025-03-19] MEDS: POTASSIUM CHLORIDE 10 MEQ CAPSULE ER 20 MEQ PO (08:50)
[2025-03-19] MEDS: SODIUM CHLORIDE 0.9 % (FLUSH) 10 ML SYRINGE 5 ML IVF (08:51)
[2025-03-19] MEDS: MULTIVITAMIN/MINERALS 1 TABLET 1 TAB PO (08:51)
[2025-03-19] MEDS: ACETAMINOPHEN 325 MG TABLET 650 MG PO (09:06)
[2025-03-19 09:09] VITALS: BP 105/63; PULSE 86; RESP 20; O2SAT 92
--- NOTE | 2025-03-19 09:37 | P.DS_ITS ---
DS: Providers Provider Time Seen by Provider: 09:00 Date Seen: 03/19/25 Date of admission: 03/03/25 18:44 Primary care physician: Robert Riley MD Admitting Clinician: Coleen Bowles MD Consults: 03/03/25 18:44 Consult to Physician [CONS] Routine Comment: Consulting Provider: Joyce Doll Has provider been notified: Yes 03/03/25 23:55 Consult to Respiratory Therapy [CONS] Routine Comment: Reason(s) for RT Consult:: Consult 03/04/25 11:51 Consult to Nutrition [CONS] Routine Comment: Reason for consult:: Weight Loss 03/11/25 07:00 Consult to Occupational Therapy [CONS] Routine Comment: Reason(s) for OT Consult:: Evaluate and Treat Any Restrictions?:: No Restrictions Consult to Physical Therapy [CONS] Routine Comment: Reason(s) for PT Consult:: Evaluate and Treat Any Restrictions?:: No Restrictions 03/11/25 15:09 Consult to Physician [CONS] Routine Comment: [facility] Consulting Provider: Efren Guerrero Has provider been notified: Yes Attending Physician on discharge: Coleen Bowles MD Date of Discharge: 03/19/25 DS: Diagnosis Discharge Diagnosis (1) Acute on chronic respiratory failure with hypoxia and hypercapnia: Status: Acute Problem details: -Patient with chronic severe O2 and BiPap dependent COPD with ongoing episodes of hypoxia and hypercapnia. Exacerbated by acute opioid use in the hospital and also by bowel obstruction and then aspiration event during SVT run on 03/07/25. -near respiratory arrest event on the evening of 03/07/2025 everted with BiPAP therapy and stabilization of paroxysmal supraventricular tachycardia. Found to have right lower lobe pneumonia which is probably due to aspiration. Initiate meropenem and vancomycin for hospital-acquired pneumonia. MRSA neg. Eventually transitioned to oral cefpodoxime. total abx days: 7 Improved on BiPAP. Do not intubate status reaffirmed on 03/08/2025 BIPAP SETTINGS IPAP 14, EPAP 6, RATE 10, 28% FI02, 400-500 TIDAL VOLUMES 03/09 - stable and mildly improving on BiPAP. added end-tidal to monitor CO2 when off bipap and on 2L NCO2. MRSA neg - Vanc stopped 03/10 - CTA - no PE and pneumonia slowly improving 03/11 - slowly improving 03/12 - slow improvement. no setbacks. 03/13 - CO2 higher than expected - I think the time off bipap during the day and worsening anemia. Transfused 1 unit PRBCS 03/14 - CO2 normal 03/15 - CO2 elevated, she had refused overnight neb. Continue to encourage patient's compliance with treatments. Also discussed with RT. Recheck in am. 03/16 - pH improved, pCO2 stable 03/17 - stable with current BiPAP use 03/18 - stable, continue current BiPAP 03/19 - CO2 slightly more elevated this morning, well compensated, pH remains wnl. Had a mild temperature elevation, not true fever, which she has occasionally had during the hospital stay. The temp elevation was not sustained and she had had a CXR earlier in the day for NG tube placement, which showed no infiltrates. UA done last night was unremarkable. She had a lot of anxiety overnight related to discharge this morning. She received doses of lorazepam and morphine for this. This was situational and likely related to why her CO2 was slightly higher than usual this morning. (2) Stage 4 very severe COPD by GOLD classification: Status: Chronic Problem details: -followed by Otto Kirby at [facility] [place]. -last seen November 2024; advised to continue Trelegy but could go back to Advair/Spiriva or try Breztri. smoking cessation and pulmonary rehab discussed. -08/2024 PFTS show FEV1 0.54L, 24% of predicted 0.54. FVC 1.5L, 52% of predicted. FEV1/FVC is 36% -GOLD 4E -continue LAMA/LABA/ICS with duo nebs and budesonide nebs -IV/oral steroids for five days -completed qualifying data collection for bipap medical necessity -needs smoking cessation, weight gain, strength gain, resp rehab -has not smoked since 03/03/25, hopefully will be able to abstain upon discharge from LTAC (3) Anemia in chronic illness: Status: Acute Problem details: -likely from poor production; no obvious bleeding -1 unit PRBCs 03/13 - 03/16 Hgb stable at 10 - 03/17 hemoglobin improving at 10.4 - 03/18 hbg 10.3, stable - 03/19 hgb 9.4, no pallor, active bleeding. Recheck end of the week. (4) Generalized anxiety disorder: Status: Chronic Problem details: -identified as a central issue affecting her health -on chronic lorazepam (1 mg q6 prn) and 1mg IVP for medical tests/interventions (CT scans, Feeding tube placement) -on fluoxetine 40mg daily -trial buspar 7.5mg bid on 03/09/25 - increased to 10mg bid on 03/13 - tolerating and effective -trial SL morphine for air hunger - 03/15 morphine use appears to be decreasing, twice a day now - 03/17 appears more settled, less anxious overall, now using morphine once a day - 03/19 situational anxiety overnight related to discharge (5) Pneumonia: Status: Acute Problem details: New right lower lobe pneumonia likely developed 03/07 with her episode of SVT and acute respiratory failure. Initiate vancomycin and meropenem for hospital- acquired pneumonia 03/09 - MRSA neg. stop vanc. ordered legionella and strep pneumo. continue meropenem. rec'd one dose of IV steroids 03/08, oral prednisone 40 mg daily from 03/08-03/13 will repeat CXR in the am. 03/10 - L.pneumo and S.pneumo neg. 03/11 - improving 03/12 - transition meropenem to oral vantin. total abx days: 7. 03/07 evening. held vanc on 03/09. 5 days of meropenem to date. will transition to Vantin 200mg BID on am of 03/12/25 - 03/14. 03/15 antibiotics complete yesterday. Monitor for fever, worsening dyspnea. 03/17 no fever or worsening dyspnea or hypoxia (6) Protein-calorie malnutrition, severe: Status: Acute Problem details: - Also diagnosed in 2022 at [facility] This is caused by pulmonary cachexia and chronic abdominal pain of uncertain etiology. Patient has lost 9 kg/20 lb since April 2024 or approximately 2 lb a month. April 2024 she was 49 kg and now 40 kg Initiate PPN. Stop PPN when adequate oral nutrition. 03/09 - Placed central line. adding lipids. keeping total volume the same. 03/10 - PharmD calculated TPN 03/11 - plan for 03/[address] small bore feeding tube and see how she tolerates her feeds 03/12 - small bore feeding tub placed am of 03/12, nutrition in lead for formula/rate/residuals and misc guidance. 03/13, - tolerated overnight feeds - no bloating/no pain 03/15 tolerating tube feeds plus some small oral intake 03/16 continues to tolerate tube feeds plus some oral intake 03/17 tolerating tube feeds well plus some oral intake. Nutrition will see tomorrow. 03/18 feeding tube advanced and back in place at 55cm. Continue tube feeds as per nutrition recs. 03/19 NGT at 55 cm today. Continue tube feeds as per nutrition. (7) Pulmonary cachexia due to chronic obstructive pulmonary disease: Status: Acute Problem details: This is a contributor to her overall malnutrition (8) Paroxysmal supraventricular tachycardia: Status: Acute Problem details: 03/07/25 -critical event that was aborted with a combination of adenosine and metoprolol. -aspiration event -became temporarily acidotic and critically hypercapnic 03/19/25 No recurrence during this hospital stay (9) Small bowel obstruction: Status: Resolved Problem details: - 03/2022 s/p laparoscopic right hemicolectomy for endoscopically unresectable cecal polyps - 04/2022 Partial SBO, managed conservatively - 03/03/25 CT abd/pelvis: High grade SBO without transition point, possibly due to adhesions. NG tube removed on March 07. Advanced diet. Ongoing medical management. Patient is a very poor candidate for surgery. 03/09/25 - Clinically slowly improving. Still having ongoing abdominal pain which is an acute on chronic problem (mesenteric angina?) 03/11 - tolerated eggs; resolved. (10) Irritable bowel syndrome: Status: Chronic (11) Fibromyalgia: Status: Chronic (12) Gastroesophageal reflux disease: Status: Chronic Problem details: - PPI (13) Ascending aortic aneurysm: Status: Chronic Problem details: 04/17/2022 echocardiogram: Ascending aorta is dilated with maximal diameter of 3.7 cm. 03/09/25 - not well visualized on 03/08 echo (14) Pulmonary hypertension: Status: Chronic Problem details: Echocardiogram from March 2022 showed severe pulmonary hypertension with right- sided pressure of 51 mmHg plus right atrial pressure, this admission's ECHO on 03/08/25 shows the estimated right ventricular systolic pressure is 31 mmHg plus right atrial pressure. The pulmonic valve is normal. Trace pulmonary regurgitation. (15) Tobacco use disorder: Status: Acute Problem details: Urge smoking cessation. Nicotine patches utilized. DS: Summary Hospital Course Hospital Course: FINAL DIAGNOSIS/FOLLOW UP ISSUES: -acute on chronic hypoxic and hypercapnic respiratory failure. End-stage COPD. 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 Upon presentation for a small-bowel obstruction was maintained on the same. However after a near respiratory arrest event, she has been BiPAP dependent. Likely she was in need of BiPAP even prior to admission but now without BiPAP, several hours out of 24 she becomes hypercapnic. -chronic severe anxiety. 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 scheduled. It sounds as if the fluoxetine was not always being taken. Since admission we have had good success with daily fluoxetine, Ativan 1 mg q.6 hours p.r.n., and the addition of BusPar 10 mg b.i.d.. We did find that she often needed 1 mg push of Ativan for procedures like scans and feeding tube placement. -aspiration pneumonia. Likely aspirated during SVT episode. Treated with vanc and meropenem as if this was a hospital-acquired pneumonia. Position to oral Vantin. Total antibiotic days 7. -severe protein calorie malnutrition, pulmonary cachexia. With the use of peripheral nutrition via PIV, TPN via central line and then ultimately feeding tube for enteral feeds she was able to gain 10 kilos. She is eating better on her own. -small-bowel obstruction. This was initially the admitting diagnosis. This was treated conservatively and resolved. -erroneously labs - 3 days while on TPN via central line, the line was not flushed well enough and we had a abnormal labs based on TPN. Ignore. BRIEF HOSPITAL COURSE: Patient was admitted for 13 days. Synopsis of acute inpatient issues are outlined above. Chronic medical conditions with notable findings outlined above. Bianca had a 13 day complicated hospitalization, this included several days in our CCU. Initially admitted for small-bowel obstruction. On day 5 of her hospitalization she had a run of SVT with an aspiration episode. She was in respiratory compromise near arrest. Her pCO2 was greater than 100 she was acidotic. She was revived on BiPAP and did not require intubation. She has been dependent on BiPAP to keep her CO2 manageable since day 5 of admission. She has end-stage COPD. The initial small-bowel obstruction resolved with conservative care. We turned to focusing on her chronic lung disease and chronic hypoxia and hypoxemia. She has been stable on BiPAP with settings of 14/6. Rate of 10. 28% FIO2, TV 400-500. She receives oxygen 2LPM via NC at rest and 4-8 LPM with activity. She was maintained on her home inhaler, Trelegy. We had scheduled DuoNebs. She did receive budesonide nebs for part of her hospitalization. She also received 1 dose of IV steroids and then four oral prednisone days. She did receive broad-spectrum antibiotics as described above and finished an oral course of Vantin. Her malnutrition and cachexia was only worsened by the previous in small-bowel obstruction and BiPAP dependence. We started with peripheral nutrition via PIV home and then transition to TPN via central line and ultimately she had enteral feeds with a feeding tube. Her appetite did improve at the end of hospitalization. She also became anemic over her days of hospitalization. This seem to be directly affecting her ability to manage her hypercapnia. She was transfused 1 unit of packed red blood cells on 03/13. She was stable and RN only suitable for TCU/LTAC on 03/19/2025. Her specific issues are outlined above. DISCHARGE MEDICATIONS: See Reconciled list - SIGNIFICANT CHANGES: BiPAP BusPar Specific instructions to the patient and follow-up are outlined below. REVIEW OF SYSTEMS No new chest pain Baseline chronic dyspnea exacerbated by anxiety Pain controlled No voiding difficulties Tolerating diet challenge and enteral feed DISPOSITION: Tcu/LTAC. Time Spent with Patient Time attestation: Total time spent providing and/or coordinating discharge services: Today I spent 45 minutes seeing and discharging the patient, speaking with Dr. Yinka Fontenot from LTAC over the phone [phone], reviewing [employer] and [employer] no yusuf/diagnostics/labs, discussing the care plan with our care team that includes social work, PT/OT, pharmacy, RT, usp and documenting my impressions and plan in the medical record. Exam Narrative: Exam Narrative: General: No acute distress. Sitting in bedside chair with L oxygen nasal cannula. Awake, alert, oriented x3. Able to carry on conversation without respiratory distress. No pallor. No jaundice. Off BiPAP, sitting in the bedside chair. Oropharynx: Clear. Mucous membranes moist. Dobbhoff in nares. Cardiovascular: Regular rate and rhythm. No murmurs, gallops, or rubs. Respiratory: No respiratory distress. Able to speak in complete sentences. Poor air movement, no wheezes or crackles, unchanged. Extremities: No lower extremity edema. Const: Vital Signs, click to edit/add: Vital Signs - 24 hr 03/18/25 10:20 03/18/25 12:10 03/18/25 14:37 Temperature 98.4 F Pulse Rate Pulse Rate [Right Pulse Oximeter] 85 Respiratory Rate 14 18 Blood Pressure [Le ft Arm] 99/57 L Pulse Oximetry 95 93 Oxygen Delivery Me thod BiPAP Nasal Cannula Oxygen Flow Rate 2 Fraction of Inspir ed Oxygen 28 28 03/18/25 14:37 03/18/25 14:37 03/18/25 14:37 Temperature 99.2 F Pulse Rate Pulse Rate [Right Pulse Oximeter] 91 91 Respiratory Rate 18 18 18 Blood Pressure [Le ft Arm] 105/56 L Pulse Oximetry 93 93 Oxygen Delivery Me thod Nasal Cannula Nasal Cannula Oxygen Flow Rate 2 2 Fraction of Inspir ed Oxygen 03/18/25 14:37 03/18/25 15:54 03/18/25 19:45 Temperature 100.3 F H Pulse Rate 83 Pulse Rate [Right Pulse Oximeter] 100 Respiratory Rate 22 Blood Pressure [Le ft Arm] 97/69 Pulse Oximetry 92 Oxygen Delivery Me thod Nasal Cannula Nasal Cannula Oxygen Flow Rate 2 Fraction of Inspir ed Oxygen 03/18/25 21:36 03/18/25 23:00 03/18/25 23:00 Temperature 99.3 F Pulse Rate 80 Pulse Rate [Right Pulse Oximeter] Respiratory Rate 14 Blood Pressure [Le ft Arm] Pulse Oximetry 92 Oxygen Delivery Me thod BiPAP Oxygen Flow Rate Fraction of Inspir ed Oxygen 03/18/25 23:04 03/19/25 04:58 03/19/25 09:09 Temperature Pulse Rate Pulse Rate [Right Pulse Oximeter] 86 Respiratory Rate 14 20 20 Blood Pressure [Le ft Arm] 105/63 Pulse Oximetry 92 Oxygen Delivery Me thod Nasal Cannula Oxygen Flow Rate 2 Fraction of Inspir ed Oxygen DS: Data Data Completed and Pending Completed studies during hospitalization: 03/07/2025 7:16 p.m. EKG: Sinus tachycardia with short CA with frequent and consecutive premature ventricular complexes with junctional escape complexes, [address] and T-wave abnormality, consider inferior ischemia. 03/07/2025 9:49 p.m. EKG: Normal sinus rhythm, 90 beats per minute, normal EKG. 03/08/2025 echocardiogram: Normal LV size, normal wall thickness, normal global systolic function, calculated EF of 60%. Right ventricular cavity size is normal, global systolic RV function is normal. The aortic valve is trileaflet and calcified, no stenosis and no regurgitation. The inferior vena cava is dilated, respiratory size variation less than 50%. No pericardial effusion. Ordering Physician: Sebastian Almazan M.D. Date of Service: 03/03/25 Procedure(s): CT abdomen pelvis w con Accession Number(s): [id number] cc: Robert Riley M.D.; Sebastian Almazan M.D.~ For Patients: As a result of the Century Cures Act, medical imaging exams and procedure reports are released immediately into your electronic medical record. You may view this report before your referring provider. If you have questions, please contact your health care provider. Indication: 69-year-old female with abdominal pain. Technique: Routine enhanced abdomen and pelvis protocol with 40 mL Isovue 370 IV contrast. Comparison: April 26, 2022 CT abdomen and pelvis Findings : Lung bases: No findings for active disease. Liver: Normal in caliber and attenuation. No masses. Gallbladder and bile ducts: Cholecystectomy. No biliary dilation Pancreas: Unremarkable. Spleen: Normal in caliber. No masses. Adrenal glands: Unremarkable. No masses. Kidneys: No obstruction. No masses. No calculi. GI tract: Multiple dilated loops of dilated small bowel with air-fluid levels are present measuring up to 3 centimeters. Jim terminal ileum postoperative changes appear stable in the right lower quadrant with a few loops of nondistended small bowel present. The colon is partially decompressed, more marked in the left hemicolon. A transition point is not identified. Appendix: No acute appendicitis. Lymph nodes: No lymphadenopathy. Aorta and vessels: No aneurysm or severe stenosis. Omentum/peritoneum/retroperitoneum: No masses or infiltration. No free air or significant free fluid. Pelvic organs: Unremarkable. Bones: Mild progression of grade 2 degenerate spondylolisthesis L4 on L5 Soft Tissues: No mass lesions or significant hernias. Impression: 1. High-grade distal small-bowel obstruction. Transition point not identified, likely due to adhesions. No bowel wall thickening about the jim terminal ileum in the left lower quadrant. 2. Mild progression of grade 2 degenerative spondylolisthesis L4 on L5. 3. No other significant interval changes. Please note that all CT scans at this facility use dose modulation, iterative reconstruction, and/or weight-based dosing when appropriate to reduce radiation dose to as low as reasonably achievable. Dictated by Lm Dumont MD @ 03/03/2025 4:59:56 PM (Electronically Signed) Ordering Physician: Chester Vallecillo M.D. Date of Service: 03/03/25 Procedure(s): XR chest 1V portable Accession Number(s): [id number] cc: Robert Riley M.D.; Chester Vallecillo M.D.~ For Patients: As a result of the Cures Act, medical imaging exams and procedure reports are released immediately into your electronic medical record. You may view this report before your referring provider. If you have questions, please contact your health care provider. INDICATION: NGT placement. COMPARISON: 04/29/2022. Technique single-view chest. FINDINGS: Enteric tube in place with tip below the diaphragm. Side hole is not visible. Hyperinflation of both lungs. No pleural effusions. No pneumothorax. Normal cardiomediastinal silhouette. Dictated by Jonathan Ann MD @ 03/03/2025 6:49:53 PM (Electronically Signed) Ordering Physician: Joyce Doll M.D. Date of Service: 03/04/25 Procedure(s): XR abd 1v-gastro challenge Accession Number(s): [id number] cc: Joyce Doll M.D.; Robert Riley M.D.~ For Patients: As a result of the Cures Act, medical imaging exams and procedure reports are released immediately into your electronic medical record. You may view this report before your referring provider. If you have questions, please contact your health care provider. Indication: Small-bowel obstruction status post Gastrografin administration. Technique: Abdomen 1 view. Comparison: CT abdomen and pelvis 03/03/2025. Findings: Enteric tube tip projects in the distal stomach. There is oral contrast throughout the small and large bowel, down through the descending colon. There are still several mildly dilated air-filled and contrast filled loops of small bowel. No evidence for free air. Cholecystectomy clips. The osseous structures are unremarkable for age. The lung bases are clear. Impression: 1. Interval administration of oral contrast, which is present in the descending colon. However, there are still several mildly dilated air-filled and contrast filled loops of small bowel, compatible with persistent partial small bowel obstruction or ileus. Dictated by Chester Qiu MD @ 03/04/2025 10:40:53 PM (Electronically Signed) Ordering Physician: Coleen Bowles M.D. Date of Service: 03/05/25 Procedure(s): XR chest 1V portable Accession Number(s): [id number] cc: Coleen Bowles M.D.; Robert Riley M.D.~ For Patients: As a result of the Cures Act, medical imaging exams and procedure reports are released immediately into your electronic medical record. You may view this report before your referring provider. If you have questions, please contact your health care provider. INDICATION: Increased oxygen needs, chronic obstructive pulmonary disease TECHNIQUE: Chest radiograph 1 view COMPARISON: 03/23/2025 FINDINGS: Mediastinum: The central pulmonary arteries are enlarged and likely due to pulmonary hypertension. The heart silhouette is normal in size and morphology. Lung: Bilateral pulmonary hyperinflation and lucency is noted. Minimal left basilar airspace opacities are noted. No sign of pleural effusion seen. No pneumothorax is identified. Bone and Soft tissue: Unremarkable for age. IMPRESSIONS: 1. Bilateral pulmonary hyperinflation and lucency is noted. This is suggestive of severe, stable pulmonary emphysema. 2. Minimal left basilar airspace opacities are noted. 3. The central pulmonary arteries are enlarged and likely due to pulmonary hypertension. Dictated by David Monaco MD @ 03/05/2025 9:32:05 PM Dictated by: David Monaco MD @ 03/05/2025 21:32:12 (Electronically Signed) Ordering Physician: Jaret Esposito M.D. Date of Service: 03/08/25 Procedure(s): XR chest 1V portable Accession Number(s): [id number] cc: Jaret Esposito M.D.; Robert Riley M.D.~ For Patients: As a result of the Cures Act, medical imaging exams and procedure reports are released immediately into your electronic medical record. You may view this report before your referring provider. If you have questions, please contact your health care provider. Indication: Respiratory failure Technique: Chest 1 view Comparison: Chest x-ray 03/05/2025 Findings/Impression: Cardiovascular and mediastinum: Normal heart size with atherosclerotic calcification. Lungs and pleural space: Trace right pleural effusion with new consolidation in the right lung base suggestive of pneumonia. No pneumothorax. Bones and soft tissues: Right upper quadrant surgical clips. Dictated by Jesus Rosas MD @ 03/08/2025 7:59:08 AM (Electronically Signed) Ordering Physician: Yolande Brooks M.D. Date of Service: 03/09/25 Procedure(s): XR chest PICC placement conf Accession Number(s): [id number] cc: Yolande Brooks M.D.; Robert Riley M.D.~ For Patients: As a result of the Cures Act, medical imaging exams and procedure reports are released immediately into your electronic medical record. You may view this report before your referring provider. If you have questions, please contact your health care provider. INDICATION: PICC line check COMPARISON: 03/08/2025 TECHNIQUE: 1 view chest radiograph. FINDINGS: Devices: New right arm PICC distal tip is at the superior cavoatrial junction. Lung volumes are good. Persistent right parahilar opacity. Slightly improved aeration in the right lung base. Mild edema. No definite pleural effusion. No pneumothorax. No pneumomediastinum. Heart size is normal. Bones: No acute findings. IMPRESSION: New right arm PICC is in good position with the distal tip at the superior cavoatrial junction. No placement complication seen. Right lung base is slightly better aerated than on the previous exam. Dictated by Chey Butt MD @ 03/09/2025 1:45:42 PM (Electronically Signed) Ordering Physician: Yolande Brooks M.D. Date of Service: 03/10/25 Procedure(s): CT angio chest PE protocol Accession Number(s): [id number] cc: Yolande Brooks M.D.; Robert Riley M.D.~ For Patients: As a result of the s Act, medical imaging exams and procedure reports are released immediately into your electronic medical record. You may view this report before your referring provider. If you have questions, please contact your health care provider. INDICATION: Hypoxia. Severe COPD. Pneumonia. COMPARISON: No prior chest CTs. I have reviewed the lung base images of an abdomen and pelvis CT dated March 03, 2025. also, radiographs dated March 08 and March 09, 2025 TECHNIQUE: : CT examination of the chest was performed with the uneventful intravenous administration of 95 cc of Isovue 370 while thin axial sections were obtained from above the apices of the lungs to the lung bases. The examination was timed as a pulmonary artery angiogram. MIP imaging/3D reformat imaging was provided Please note that all CT scans at this facility use dose modulation, iterative reconstruction, and/or weight-based dosing when appropriate to reduce radiation dose to as low as reasonably achievable. FINDINGS: : HEART and MEDIASTINUM: The heart size is normal. There is no mediastinal or hilar adenopathy or mass. No pericardial effusion. Heart size is normal. There is no mediastinal or hilar adenopathy or mass. There is no pericardial effusion. PULMONARY ARTERIAL CIRCULATION: There is no visible intraluminal filling defect to suggest pulmonary embolus. LUNGS and PLEURAL SPACES: Severe upper lobe predominant emphysema. Linear opacities primarily at the bases consistent with atelectasis.Slightly more confluent opacity at the posterior right base probably representing pneumonia. Small right effusion. No left effusion. No pneumothorax on either side. VISUALIZED UPPER ABDOMEN: The limited visualized upper abdominal structures appear normal. Contrast or other radiodense material is incidentally noted in the colon OSSEOUS STRUCTURES: Age-appropriate appearance. No acute fracture or destructive process. TUBES and LINES: A PICC line ends in the distal SVC. IMPRESSION: 1. No definite intraluminal filling defect to suggest pulmonary embolism. 2. Normal heart size. 3. PICC line normally located. 4. Severe emphysema. 5. Right posterior basilar opacity probably related to pneumonia. Basilar atelectasis also noted. Small free-flowing right effusion. 6. The findings suggest a pneumonia and the right pleural effusion are new when compared to the lung base images of a March 03, 2025 CT. However, the right base appears to have improved between the March 08 and March 09 x-rays Please note that all CT scans at this facility use dose modulation, iterative reconstruction, and/or weight-based dosing when appropriate to reduce radiation dose to as low as reasonably achievable. Dictated by Keegan Hernández MD @ 03/10/2025 10:58:47 AM (Electronically Signed) Ordering Physician: Yolande Brooks M.D. Date of Service: 03/12/25 Procedure(s): FL feeding tube Accession Number(s): [id number] cc: Yolande Brooks M.D.; Robert Riley M.D.~ For Patients: As a result of the Cures Act, medical imaging exams and procedure reports are released immediately into your electronic medical record. You may view this report before your referring provider. If you have questions, please contact your health care provider. Technique: Fluoroscopic guided feeding tube placement. Fluoroscopy time 1 minute 46 seconds. Indication: Malnutrition Comparison: None. Findings/Impression : Using fluoroscopic guidance, a feeding tube was placed into the stomach without difficulty. Dictated by Robert Tarango MD @ 03/12/2025 10:51:25 AM (Electronically Signed) Ordering Physician: Coleen Bowles M.D. Date of Service: 03/18/25 Procedure(s): XR chest 1V portable Accession Number(s): [id number] cc: Coleen Bowles M.D.; Robert Riley M.D.~ For Patients: As a result of the Cures Act, medical imaging exams and procedure reports are released immediately into your electronic medical record. You may view this report before your referring provider. If you have questions, please contact your health care provider. INDICATION: Chest pain. TECHNIQUE: Chest 1 views. COMPARISON: None. FINDINGS: Cardiovascular and mediastinum: Cardiomediastinal silhouette is within normal limits. Right approach PICC with distal tip at the low SVC. Dobbhoff feeding tube is identified with distal tip at the superior mediastinum. Likely within the esophagus however tracheal placement not entirely excluded. Lungs and pleural spaces: Lungs are clear. No sign of pleural effusion. No pneumothorax. Bones and soft tissues: Unremarkable for age. IMPRESSION: Dobbhoff tube terminates in the upper mediastinum likely within the esophagus however tracheal placement not entirely excluded. Dictated by Saad Moreau MD @ 03/18/2025 1:12:59 PM (Electronically Signed) Ordering Physician: Coleen Bowles M.D. Date of Service: 03/18/25 Procedure(s): XR abdomen 1V Accession Number(s): [id number] cc: Coleen Bowles M.D.; Robert Riley M.D.~ For Patients: As a result of the Cures Act, medical imaging exams and procedure reports are released immediately into your electronic medical record. You may view this report before your referring provider. If you have questions, please contact your health care provider. INDICATION: Dobhoff feeding tube reposition. TECHNIQUE: Abdomen 1 view. COMPARISON: Earlier same day chest radiograph. Abdominal radiograph 03/04/2025. FINDINGS: Enteric tube with tip projected over the stomach. There is a dilated small bowel loop in the left abdomen measuring 3.2 cm in diameter. No significant formed stool. No sign of free air. Surgical clips right upper quadrant and right lower quadrant. The lung bases are clear. The bones are unremarkable. IMPRESSION: 1. Enteric tube with tip projected over the stomach. 2. Dilated small bowel loop in the left abdomen. Dictated by Sherry Pompa MD @ 03/18/2025 3:01:30 PM (Electronically Signed) Labs on day of discharge: Labs from last 24 hours 03/19/25 03/18/25 05:55 20:12 WBC Pending RBC Pending Hgb Pending Hct Pending MCV Pending MCH Pending MCHC Pending Plt Count Pending VBG pH 7.368 VBG pCO2 61 H* VBG pO2 59.1 H VBG HCO3 35 H Sodium 132 L Potassium 4.6 Chloride 95 L Carbon Dioxide 33 H Anion Gap 4 L BUN 26 Creatinine 0.6 Estimated Creat Clear 31.41 Estimated GFR 96 Glucose 131 H Calcium 9.0 Urine Color Yellow Urine Appearance Clear Urine pH 7.0 Ur Specific [place] 1.015 Urine Protein Negative Urine Glucose (UA) Negative Urine Ketones Negative Urine Blood Negative Urine Nitrite Negative Urine Bilirubin Negative Urine Urobilinogen 0.2 Ur Leukocyte Esterase Negative Discharge Plan Discharge Disposition: [facility] Date of Admission: 03/03/25 18:44 Attending Provider on Discharge: Coleen Bowles Consulting Providers: Joyce Doll Primary Care Provider: Robert Riley Condition: Stable Discharge Medications: New potassium chloride 10 mEq Capsule, Extended Release 20 meq PO BIDWM Qty: 60 0RF buspirone 10 mg Tablet 10 mg PO BID Qty: 30 0RF ipratropium-albuterol 0.5 mg-3 mg(2.5 mg base)/3 mL Solution For Nebulization 3 ml inhalation Q6H Qty: 90 0RF lorazepam 1 mg Tablet 1 mg PO Q6H PRNQty: 30 0RF morphine concentrate 10 mg/0.5 mL Syringe 5 mg PO BID PRN (Reason: air hunger) Qty: 10 0RF ondansetron 4 mg Tablet,Disintegrating 4 mg PO Q6H PRNQty: 30 0RF albuterol sulfate 2.5 mg /3 mL (0.083 %) Solution For Nebulization 2.5 mg NEB Q2H PRNQty: 30 0RF calcium carbonate 200 mg calcium (500 mg) Tablet,Chewable 500 mg PO Q4H PRN (Reason: gerd symptoms) Qty: 120 0RF enoxaparin [Lovenox] 30 mg/0.3 mL Syringe 30 mg subcut HS Qty: 30 0RF nicotine 14 mg/24 hr Patch 24 Hour 1 patch transdermal Q24H Qty: 30 0RF sennosides [Senna Lax] 8.6 mg Tablet 8.6 mg PO BID Qty: 30 0RF omeprazole 20 mg Capsule,Delayed Release(Dr/Ec) 20 mg PO DAILY@0700 Qty: 30 0RF Continued (DME) Home Oxygen Misc See Rx Instructions .Route Rx Instructions: As directed ipratropium-albuterol 0.5 mg-3 mg(2.5 mg base)/3 mL solution for nebulization 3 ml inhalation QID PRN (Reason: shortness of breath) Qty: 360 3RF Trelegy Ellipta 200-62.5-25 mcg blister with device 1 inh INHALATION DAILY thiamine HCl (vitamin B1) 100 mg tablet 100 mg PO QDAY Qty: 90 3RF hydroxyzine HCl 50 mg tablet 50 mg PO BID PRN (Reason: anxiety) Qty: 60 2RF multivitamin with iron-mineral Tablet 1 tab PO QDAY Qty: 100 1RF pantoprazole 40 mg tablet,delayed release (DR/EC) 40 mg PO DAILY Qty: 90 2RF fluoxetine 40 mg capsule 40 mg PO DAILY Qty: 90 1RF ergocalciferol (vitamin D2) 1,250 mcg (50,000 unit) capsule 50,000 unit PO .Once Weekly Qty: 12 1RF famotidine 20 mg tablet 20 mg PO BID PRN (Reason: GERD) Qty: 180 0RF Changed lorazepam 1 mg tablet 1 mg PO Q6H PRN (Reason: anxiety) Qty: 60 1RF Discontinued fluticasone propion-salmeterol 500-50 mcg/dose blister with device 1 inh PO BID albuterol sulfate 90 mcg/actuation HFA aerosol inhaler 2 inh inhalation Q4-6H PRN (Reason: shortness of breath or wheezing) Qty: 8.5 3RF Discharge Orders: Discharge Order (Routine); Ordered 03/19/25 Ordered By: Coleen Bowles Activity Level: Activity as Tolerated and Other Discharge Diet: High Protein/High Calorie and Other Diet Detail: Isosource 1.5, full strength, start at 8:00 p.m., run for 10 hours at 5 mL/hour. 60 mL free water flush t.i.d., before and after tube feeding, and at noon. Follow Up Appointments: [facility] [Outside, Pulmonology] Referral Note: (rehab to determine timing) Otto Kirby MD Pulmonary and Sleep Medicine [facility] [phone] Robert Riley MD [Primary Care Provider, [facility]] Referral Note: Video appt timing TBD by rehab Forms: [facility] Info Instructions Discharge Comments: BiPAP with settings of 14/6. Rate of 10. 28% FIO2, TV 400- 500. She receives oxygen 2LPM via NC at rest and 4-8 LPM with activity; Dobhoff tube 55cm at nares. Wound Care: none Ostomy Care: none Admit to: SNF Discharge Potential: Fair Length of Stay: 30-90 days Can use facility standing orders?: Yes Code Status: DNR/DNI Rehab Potential: Fair Therapy: Physical Therapy and Occupational Therapy Therapy Orders: Evaluate and Treat Oxygen: Yes Oxygen Delivery Method: Nasal Cannula Oxygen Flow Rate: BiPap at night; naps. 14/6, rate of 10, 28% FIO2. see above for NC. Urinary Catheter: No Lab Orders: CBC, BMP in 3-5 days Orders are good >30 days: No Signature: Coleen Bowles MD
[2025-03-19 09:39] LABS: Hematocrit 29.9 % (33.0-51.0); Hemoglobin* 9.4 gm/dL (12.0-16.0); Mean Corpuscular HGB Conc 31 gm/dL (32-36); Mean Corpuscular Hemoglobin 30 pg (26-34); Mean Corpuscular Volume 94 fL (80-100); Platelet Count* 368 K/uL (140-440); Red Blood Count 3.19 m/uL (4.00-5.20); White Blood Count* 10.19 K/uL (4.50-11.00)
[2025-03-19 09:42] LABS: Slide Review Reflex No
[2025-03-19] MEDS: CALCIUM CARBONATE 500 MG CHEW PO (10:52)
--- NOTE | 2025-03-19 11:43 | PC.SOCIAL ---
Discharge planning: Multiple phone conversations with Norma at [facility] this morning to coordinate discharge. Norma will call dtr to answer her questions about the facility and what to bring from home for pt there. Spoke with dtr who is aware and pleased with the discharge plans.Provided pt with copy of her Important Message from Medicare and explained the option to appeal discharge. Pt is aware and agrees with discharge plans. Provided phone number to MD for doctor to doctor report and phone number to RN for nurse to nurse report. Secure emailed discharge orders to Norma at the facility prior to discharge.
--- NOTE | 2025-03-19 12:14 | PC.NURSE ---
The patient transported to an acute rehab facility via EMS this AM. All of the patients belongings were accounted for. The patients PICC was removed and the patient was lying as flat as she could due to her COPD. Nurse to nurse was given to nurse Sadler at the facility. NG feeding tube is intact. Debbie SILVEIRA BSN
== END 2025-03-19 11:30 | DRG 189 ==
LOC: ED 17:35 → MEDSURG 18:24
PROVIDERS: Family Medicine; Internal Medicine; Admitting Provider Family Medicine; Emergency Provider Internal Medicine; PCP Family Medicine; Visit Provider Family Medicine
DX: J96.22 Acute and chronic respiratory failure with hypercapnia (principal); E43 Unspecified severe protein-calorie malnutrition; J18.9 Pneumonia, unspecified organism; J69.0 Pneumonitis due to inhalation of food and vomit; K56.601 Complete intestinal obstruction, unspecified as to cause; F33.9 Major depressive disorder, recurrent, unspecified; Z68.1 Body mass index [BMI] 19.9 or less, adult; I47.19 Other supraventricular tachycardia; R64 Cachexia; J44.0 Chronic obstructive pulmonary disease with (acute) lower respiratory infection; J44.1 Chronic obstructive pulmonary disease with (acute) exacerbation; I50.32 Chronic diastolic (congestive) heart failure; E87.6 Hypokalemia; J96.21 Acute and chronic respiratory failure with hypoxia; J44.9 Chronic obstructive pulmonary disease, unspecified; Z99.81 Dependence on supplemental oxygen; I27.20 Pulmonary hypertension, unspecified; F41.1 Generalized anxiety disorder; F17.210 Nicotine dependence, cigarettes, uncomplicated; D63.8 Anemia in other chronic diseases classified elsewhere; I11.0 Hypertensive heart disease with heart failure; I71.21 Aneurysm of the ascending aorta, without rupture; K58.9 Irritable bowel syndrome, unspecified; M79.7 Fibromyalgia; K21.9 Gastro-esophageal reflux disease without esophagitis; E78.5 Hyperlipidemia, unspecified
CPT/HCPCS: 36415; 36430; 36573; 36600; 44500; 71045; 71275; 74018; 74177; 74340; 80048; 80053; 80076; 81001; 81003; 82803; 82962; 83605; 83690; 83735; 84100; 84134; 84478; 84484; 85018; 85025; 85027; 85610; 86850; 86900; 86901; 86922; 87040; 87081; 87449; 87899; 93005; 93306; 94640; 94660; 94664; 94761; 97110; 97112; 97116; 97162; 97165; 97530; 97535; 99284; 99285; A4221; A9153; A9270; B4185; B4189; C1751; J0153; J1171; J1650; J2060; J2185; J2405; J2470; J2919; J3372; J3475; J3480; J7030; J7050; J7120; J7512; J7626; P9016; Q9967; S4990

== ENCOUNTER 2025-03-19 11:15 | Outpatient (CLI) | payer MEDICARE, SELFPAY ==
--- OUTSIDE RECORDS SUMMARY | 2025-03-19 12:37 | XMS_ITS | Encounter Summary ---
Author Organization [place] Address [address] [facility] [place] [address] Care Team Providers Care Fire Protection Engineer Name Role Phone Eli Basilio RT Unavailable UnavailJennifer Cabello MD Primary Care Provider [phone] Reason for Visit * Auth/Cert (Routine) Specialty Diagnoses / Procedures Referred By Leonel t Referred To Contact Med Surg Diagnoses complex respiratory Yinka Ahmadi MD [address] [place] [address] Phone: tel: fax: [address] [address] Phone: tel: fax: Referral ID Status Reason Start Date Expiration Date Visits Re quested Visits Authorized [id number] 1 1 Encounter Details Date Type Department Care Team (Late st Contact Info) Description 03/19/2025 12:37 PM CDT - Present Hospital Encounter [address] [address] Jermaine Aparicio MD [address] [place] [address] Yinka Ahmadi MD [address] [place] [address] Social History Tobacco Use Types Packs/Day Years Used Date Smoking Tobacco: Every Day Cigarettes 1 53.5 Started: 1973 Smokeless Tobacco: Never Comments:Seen IP by CTTS on 02/10/2023; patient down to 1/2 ppd, see consult note for details. Adolescent Education Answer Date Record ed Getting School Help Needed Not on file 06/18 Food Insecurity Answer Date Recorded Within the past 12 months, d id you worry that your food would run out before you got money to buy more? No 03/19/2025 Within the past 12 months, d id the food you bought just not last and you didn t have money to get more? No 03/19/2025 Housing Stability Answer Date Recorded Do you have housing? (Housin g is defined as stable permanent housing and does not include staying outside in a car, in a tent, in an abandoned building, in an overnight residential, or couch-surfing.) Yes 03/19/2025 Are you worried about losing your housing? No 03/19/2025 Financial Resource Strain Answer Date R ecorded Within the past 12 months, h ave you or your family members you live with been unable to get utilities (heat, electricity) when it was really needed? No 03/19/2025 Transportation Needs Answer Date Record ed Within the past 12 months, h as lack of transportation kept you from medical appointments, getting your medicines, non-medical meetings or appointments, work, or from getting things that you need? No 03/19/2025 Interpersonal Safety Answer Date Record ed Do you feel physically and e motionally safe where you currently live? No 03/19/2025 Within the past 12 months, h ave you been hit, slapped, kicked or otherwise physically hurt by someone? No 03/19/2025 Within the past 12 months, h ave you been humiliated or emotionally abused in other ways by your partner or ex-partner? No 03/19/2025 Comments No Sex and Gender Information Value Date Recorded Sex Assigned at Not on file Legal Sex Female 1:00 PM CDT Gender Identity Not on file Sexual Orientation Not on file documented as of this encounter Last Filed Vital Signs Vital Sign Reading Time Taken Comments Blood Pressure 126/62 03/21/2025 7:25 AM CDT Pulse 64 03/21/2025 7:39 AM CDT Temperature 36.8 C (98.3 F) 03/21/2025 7:25 AM CDT Respiratory Rate 20 03/21/2025 7:39 AM CDT Oxygen Saturation 95% 03/21/2025 7:39 AM CDT Inhaled Oxygen Concentration - - Weight 41.3 kg (91 lb) 03/19/2025 12:40 PM CDT Height 162.6 cm (5' 4) 03/19/2025 12:47 PM CDT Body Mass Index 15.62 03/19/2025 12:40 PM CDT documented in this encounter Progress Notes * Donald Matute, MUSHROOM PRESS OPERATOR - 03/21/2025 10:43 AM CDT SPEECH PATHOLOGY: CLINICAL SWALLOW EVALUATION 03/21/25 1013 Appointment Info Signing Clinician's Name / Credentials (MUSHROOM PRESS OPERATOR) Donald Matute MA [facility] MUSHROOM PRESS OPERATOR General Information Onset of Illness/Injury or Date of Surgery 03/03/25 Referring Physician BIJAN Solis Patient/Family Therapy Goal Statement (MUSHROOM PRESS OPERATOR) To have less tubes Pertinent History of Current Problem Per ordering provider: 69F with pmhx includes COPD (gold 4E, 2L baseline supplemental), pHTN, cachexia, anemia of chronic disease, SUSI, IBS, fibromyalgia. Admitted 03/03/25 for small bowel obstruction medically managed. Also treated for suspected aspiration pneumonia and given 5 day course of IV/oral steroids. General Observations Alert, cooperative. Type of Evaluation Type of Evaluation Swallow Evaluation Oral Motor Oral Musculature generally intact Structural Abnormalities none present Mucosal Quality adequate Dentition (Oral Motor) Dentition (Oral Motor) some missing teeth Facial Symmetry (Oral Motor) Facial Symmetry (Oral Motor) WNL Lip Function (Oral Motor) Lip Range of Motion (Oral Motor) WNL Lip Strength (Oral Motor) WFL Tongue Function (Oral Motor) Tongue ROM (Oral Motor) WNL Tongue Strength (Oral Motor) WFL Tongue Coordination/Speed (Oral Motor) WNL Jaw Function (Oral Motor) Jaw Function (Oral Motor) WNL Cough/Swallow/Gag Reflex (Oral Motor) Soft Palate/Velum (Oral Motor) WNL Volitional Throat Clear/Cough (Oral Motor) WNL Vocal Quality/Secretion Management (Oral Motor) Vocal Quality (Oral Motor) WFL Secretion Management (Oral Motor) WNL General Swallowing Observations Current Diet/Method of Nutritional Intake (General Swallowing Observations, NIS) thin liquids (level 0);regular diet;nasogastric tube (NG) Respiratory Support nasal cannula Past History of Dysphagia None reported at baseline. Per charting from previous hospital, patient with pneumonia, suspect aspiration, but no comments re: details (e.g., choking/coughing episode, aspiration of emesis). Patient reports no communication to her verbally re: specifics either. No evaluation of swallowing noted. Swallowing Evaluation Clinical swallow evaluation Clinical Swallow Evaluation Feeding Assistance no assistance needed Clinical Swallow Evaluation Textures Trialed thin liquids;pureed Clinical Swallow Eval: Thin Liquid Texture Trial Mode of Presentation, Thin Liquids straw Volume of Liquid or Food Presented 3 oz, including with pills Oral Phase of Swallow WFL Pharyngeal Phase of Swallow throat clearing;coughing/choking Successful Strategies Trialed During Procedure other (see comments) (reduced bolus size) Diagnostic Statement Patient presents with intermittent throat clear with liquids and pills, cough x1 with large, consecutive gulps. No cough noted with small sips. Patient denied sensing aspiration. Clinical Swallow Evaluation: Puree Solid Texture Trial Mode of Presentation, Puree spoon Volume of Puree Presented 1 oz Oral Phase, Puree WFL Pharyngeal Phase, Puree intact Diagnostic Statement No overt s/s aspiration Esophageal Phase of Swallow Patient reports or presents with symptoms of esophageal dysphagia No Swallowing Recommendations Diet Consistency Recommendations thin liquids (level 0);regular diet Supervision Level for Intake patient independent Instrumental Assessment Recommendations VFSS (videofluoroscopic swallowing study) Comment, Swallowing Recommendations Patient was not given solid as she needed to be placed on BiPapper RT. General Therapy Interventions Planned Therapy Interventions Dysphagia Treatment Dysphagia treatment Instruction of safe swallow strategies;Compensatory strategies for swallowing Clinical Impression Criteria for Skilled Therapeutic Interventions Met (MUSHROOM PRESS OPERATOR Eval) Yes, treatment indicated MUSHROOM PRESS OPERATOR Diagnosis r/o dysphagia Risks & Benefits of therapy have been explained evaluation/treatment results reviewed;care plan/treatment goals reviewed;risks/benefits reviewed;participants voiced agreement with care plan;participants included;patient Clinical Impression Comments Patient presents with subtle s/s aspiration with larger gulps of thin liquids via straw and with pills/liquids. No overt s/s aspiration with use of small sips without pills. Factors present that can be associated with dysphagia: COPD, presence of nasal feeding tube, malnutrition, reported aspiration pneumonia at previous hospital. COPD has also been associated with silent aspiration. Educated patient re: role of speech therapy, potential impact of dysphagia, aspiration pneumonia, and specifically silent aspiration. Patient expressed frustration and fatigue with the series of tests and interventions she's already undergone. Educated re: video swallow study as an objective evaluation of swallow function and potential to r/o dysphagia as contributing factor to her respiratory status. Patient is reluctant to participate, but would like some time to consider, including discussing with her children. Recommend continuing current diet of regular textures and thin l iquids, using small single sips, with re-visiting conversation re: video swallow study in the next day or so. MUSHROOM PRESS OPERATOR Total Evaluation Time Eval: oral/pharyngeal swallow function, clinical swallow Minutes ([id number]) 25 MUSHROOM PRESS OPERATOR Goals Therapy Frequency (MUSHROOM PRESS OPERATOR Eval) 3 times/week MUSHROOM PRESS OPERATOR Predicted Duration/Target Date for Goal Attainment 05/03/25 MUSHROOM PRESS OPERATOR Goals Swallow MUSHROOM PRESS OPERATOR: Safely tolerate diet without signs/symptoms of aspiration Regular diet;Thin liquids;With use of swallow precautions;With use of compensatory swallow strategies;Independently MUSHROOM PRESS OPERATOR Discharge Planning MUSHROOM PRESS OPERATOR Plan f/u re: openness to participate in video swallow study; train small sip strategy. trial regular textures. MUSHROOM PRESS OPERATOR Discharge Recommendation home MUSHROOM PRESS OPERATOR Rationale for DC Rec anticipate MUSHROOM PRESS OPERATOR goals to be met by d/c MUSHROOM PRESS OPERATOR Brief overview of current status Regular textures and thin liquids, using small sip strategy. * Lubna Smith OTR - 03/21/2025 9:09 AM CDT 03/20/25 1000 Appointment Info Signing Clinician's Name / Credentials (OT) LINDA Oliveira/Marah Living Environment Living Environment Comments Pt states she lives in a house with her daughter. Self-Care Usual Activity Tolerance fair Current Activity Tolerance fair Activity/Exercise/Self-Care Comment Pt states she is IND with ADLs except for occasional assist with LB dressing General Information Onset of Illness/Injury or Date of Surgery 03/03/25 Patient/Family Therapy Goal Statement (OT) Go home Existing Precautions/Restrictions oxygen therapy device and L/min Left Upper Extremity (Weight-bearing Status) full weight-bearing (FWB) Right Upper Extremity (Weight-bearing Status) full weight-bearing (FWB) Left Lower Extremity (Weight-bearing Status) full weight-bearing (FWB) Right Lower Extremity (Weight-bearing Status) full weight-bearing (FWB) General Observations and Info 69F transferred from [place], initially admitted 03/03/25 for small bowel obstruction medically managed; pmhx includes COPD (gold 4E, 2L baseline supplemental, FEV1 24%), pHTN, cachexia, anaemia of chronic disease, SUSI, IBS, fibromyalgia; transferred 03/19 for dedicated therapies in setting of frequent BiPAP support requirements. Cognitive Status Examination Orientation Status orientation to person, place and time Follows Commands WNL Visual Perception Visual Impairment/Limitations WNL Sensory Sensory Quick Adds UE sensation intact Pain Assessment Patient Currently in Pain No Range of Motion Comprehensive General Range of Motion no range of motion deficits identified Strength Comprehensive (MMT) General Manual Muscle Testing (MMT) Assessment no strength deficits identified Coordination Upper Extremity Coordination No deficits were identified Bed Mobility Comment (Bed Mobility) IND Transfers Transfer Comments IND Activities of Daily Living Comment, BADL Assessment/Training Pt IND with basic ADLs Additional Documentation Comment, BADL Assessment/Training (Row) Clinical Impression Criteria for Skilled Therapeutic Interventions Met (OT) Evaluation only Clinical Impression Comments Pt IND with ADLs, cogntiion appears to be intact. Pt will benefit fromexercise to progress activity tolerance, but will defer to PT to contnue with this. OT Total Evaluation Time OT Eval, Low Complexity Minutes ([id number]) 15 OT Discharge Planning OT Discharge Recommendation (DC Rec) home with assist OT Rationale for DC Rec Return to home will be appropriate. OT Brief overview of current status Eval only, no skilled OT indicated at this time. PT will continue with exercise to maintain/progress activity tolerance. Post Acute Settings Only What unit is patient on? LTACH Hearing, Vision, and Speech: Expression Expression of Ideas and Wants Without difficulty Hearing, Vision, and Speech: Understanding Understanding Verbal/Non-Verbal Content Understands Eating Patient Performance Independent Oral Hygiene Patient Performance Independent Wash Upper Body Patient Performance Independent Toileting Hygiene Patient Performance Independent Toilet Transfer Patient Performance Independent * Yinka Ahmadi MD - 03/21/2025 7:22 AM CDT LTACH Medicine Progress Note - Hospitalist Service Date of Admission: 03/19/2025 Assessment & Plan Bianca Wang is a 69F transferred from [place], initially admitted 03/03/25 for small bowel obstruction medically managed; pmhx includes COPD (gold 4E, 2L baseline supplemental, FEV1 24%), pHTN,cachexia, anaemia of chronic disease, SUSI, IBS, fibromyalgia; transferred 03/19 for dedicated therapies in setting of frequent BiPAP support requirements. LTACH COURSE: 03/19-03/24: Transferred from [place] 03/19. Weaning to baseline 2L supplemental oxygen; persistent but improving weakness and abdominal pain--limiting her oral intake. COPD exacerbation COPD (FEV1 24%, GOLD 4E, 2L supplemental) Pulmonary hypertension TTE 04/16: RVSP 51mmHg, 03/08: RVSP 31mmHg. Ascending aorta diameter of 3.7cm. 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 Referred to pulmonary rehab. New start of BiPAP during immediate prior hospitalisation. Completed course of steroids prior to transfer to [facility]. -supplemental oxygen to saturations >90% -breo ellipta 200-25mcg INH 1 puff daily (replaces trelegy) -incruse ellipta 62.5mcg INH 1 puff daily (replaces trelegy) -albuterol INH q2h/PRN -morphine 5mg SL q1h/PRN -RT protocols -pulmonology consulted for BiPAP home qualification Small bowel obstruction Chronic abdominal pain Irritable bowel syndrome Chronic abdominal pain, past adhesions noted in prior surgeries and on CT but no definitive mechanical obstructions; medically managed. Hx of R hemicolectomy in 2021. Temporarily required TPN for nutrition while at [place]. NGT required for nutrtional support, replaced around March 07. -NGT -Tube feeds per RD -senokot PO BID -colace 100mg PO BID/PRN -miralax PO every day/prn Cachexia In setting of end stage COPD. -NGT placed around March 07 - for tube feeds -offered palliative/hospice referral for information purposes, declined as of 03/19 Generalised anxiety -buspar 30mg PO BID -fluoxetine 40mg PO every day -lorazepam 1mg q4h/PRN Fibromyalgia -tylenol PO PRN -PT Anaemia of chronic disease -CBC trend GERD -pantoprazole 40mg PO every day -tums 500mg PO q4h/PRN Tobacco dependence Estimated 1/2 ppd cigarette use. -NRT patches 14mg every day Goals of care Multiple prior conversations of hospice care given end stage COPD. Not currently interested in hospice/palliative referral at time of admission. Confirms her preference of DNR/DNI. Has capacity to make medical decisions at time of transfer/admission. -DNR/DNI -review hospice information referral as indicated Diet: Regular Diet Adult Adult Formula Drip Feeding: Specified Time Jevity 1.5; Nasogastric tube; Goal Rate: 75; mL/hr; From: 8:00 PM; To: 6:00 AM Calorie Counts DVT Prophylaxis: Enoxaparin (Lovenox) SQ [place] Catheter: Not present Lines: None Cardiac Monitoring: None Code Status: No CPR- Do NOT Intubate Clinically Significant Risk Factors # Cachexia: Estimated body mass index is 15.62 kg/m?? as calculated from the following: Height as of this encounter: 1.626 m (5' 4). Weight as of this encounter: 41.3 kg (91 lb)., PRESENT ON ADMISSION # Severe Malnutrition: based on nutrition assessment and treatment provided per dietitian's recommendations., PRESENT ON ADMISSION # Financial/Environmental Concerns: none Social Drivers of Health Depression: At risk (08/23/2023) Received from [employer] PHQ-2 PHQ-2 Score: 4 Tobacco Use: High Risk (12/06/2024) Received from [facility] [facility] Patient History Smoking Tobacco Use: Every Day Smokeless Tobacco Use: Never Interpersonal Safety: High Risk (03/19/2025) Interpersonal Safety Do you feel physically and emotionally safe where you currently live?: No Within the past 12 months, have you been hit, slapped, kicked or otherwise physically hurt by someone?: No Within the past 12 months, have you been humiliated or emotionally abused in other ways by your partner or ex-partner?: No Disposition Plan Medically Ready for Discharge: Anticipated in 2-4 Days Yinka Ahmadi MD Hospitalist Service LTACH Securely message with [employer] (more info) Text page via [facility] Paging/Directory Interval History No events overnight. Relative increased anxiety. Relative increased oral intake--has goals for NG removal. Physical Exam Vital Signs: Temp: 98.3 ??F (36.8 ??C) Temp src: Oral BP: 126/62 Pulse: 64 Resp: 20 SpO2: 95 % O2 Device: Nasal cannula with humidification Oxygen Delivery: 2 LPM Weight: 91 lbs 0 oz Constitutional: alert, no distress; diffuse muscle/fat wasting Respiratory: globally muted sounds, no crackles/rales/wheeze Cardiovascular: RRR no m/g/r GI: scaphoid abd, soft, nontender, nondistended Musculoskeletal: shoulder/elbow flexion/extension 5/5 bilaterally and symmetric Neurologic: AOx4, CN II-XII intact Medical Decision Making 50 MINUTES SPENT BY ME on the date of service doing chart review, history, exam, documentation & further activities per the note. MANAGEMENT DISCUSSED with the following over the past 24 hours: patient NOTE(S)/MEDICAL RECORDS REVIEWED over the past 24 hours: RN notes, RT notes, managing consultant clinical professor notes Data I have personally reviewed the following data over the past 24 hrs: N/A \ N/A / N/A N/A N/A N/A / N/A N/A N/A 0.62 \ Imaging results reviewed over the past 24 hrs: Recent Results (from the past 24 hours) XR Chest Port 1 View Narrative EXAM: XR CHEST PORT 1 VIEW LOCATION: [facility] DATE: 03/20/2025 INDICATION: Respiratory failure COMPARISON: CXRs 08/19/2023 and 08/16/2023 Impression IMPRESSION: Emphysematous change both lungs. Lungs are otherwise clear. Slight size prominence of the right hilum is probably due to the patient's relatively shallow inspiration during image acquisition. No visible pleural fluid. Heart size normal. * Paramjit Cobos RN - 03/20/2025 10:07 PM CDTSummary: UNCLOGGING NGT The NGT was clogged, got orders for lipase and sodium bicarb, these were administered resulting in opening the tube for use. Pt was anxious about the procedure, she was informed about what need to bedone , and reassured. She apologized for her previous action to care provider, of which I was not aware. * Shira Soares RT - 03/20/2025 6:05 PM CDT Pt continues on 2lnc daytime. Pt using bipap 09/03, f 10, 25% at night and for naps. Pt very tired today. Pt states she was up trying to use the bathroom all night from constipation. Pt slept for about 2 and a half hours on bipap for nap in the morning and another 2 and a half hours on the afternoon. Pt states she just feels, off today. Pt requested 2 prn nebs. No change in BRS post nebs. Pt does state she feels better after nebs. Pt very anxious today. Continue to support. * Yinka Ahmadi MD - 03/20/2025 9:56 AM CDT LTACH Medicine Progress Note - Hospitalist Service Date of Admission: 03/19/2025 Assessment & Plan Bianca Wang is a 69F transferred from [place], initially admitted 03/03/25 for small bowel obstruction medically managed; pmhx includes COPD (gold 4E, 2L baseline supplemental, FEV1 24%), pHTN,cachexia, anaemia of chronic disease, SUSI, IBS, fibromyalgia; transferred 03/19 for dedicated therapies in setting of frequent BiPAP support requirements. LTACH COURSE: 03/19-03/24: Transferred from [place] 03/19. Weaning to baseline 2L supplemental oxygen; persistent but improving weakness and abdominal pain--limiting her oral intake. COPD exacerbation COPD (FEV1 24%, GOLD 4E, 2L supplemental) Pulmonary hypertension TTE 04/16: RVSP 51mmHg, 03/08: RVSP 31mmHg. Ascending aorta diameter of 3.7cm. 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 Referred to pulmonary rehab. New start of BiPAP during immediate prior hospitalisation. Completed course of steroids prior to transfer to LTACH. -supplemental oxygen to saturations >90% -breo ellipta 200-25mcg INH 1 puff daily (replaces trelegy) -incruse ellipta 62.5mcg INH 1 puff daily (replaces trelegy) -albuterol INH q2h/PRN -morphine 5mg SL q1h/PRN -RT protocols -pulmonology consulted for BiPAP home qualification Small bowel obstruction Chronic abdominal pain Irritable bowel syndrome Chronic abdominal pain, past adhesions noted in prior surgeries and on CT but no definitive mechanical obstructions; medically managed. Hx of R hemicolectomy in 2021. Temporarily required TPN for nutrition while at [place]. NGT required for nutrtional support, replaced around March 07. -NGT -Tube feeds per RD -senokot PO BID -colace 100mg PO BID/PRN -miralax PO every day/prn Cachexia In setting of end stage COPD. -NGT placed around March 07 - for tube feeds -offered palliative/hospice referral for information purposes, declined as of 03/19 Generalised anxiety -buspar 30mg PO BID -fluoxetine 40mg PO every day -atarax 50mg PO BID/PRN -lorazepam 1mg q6h/PRN Fibromyalgia -tylenol PO PRN -PT Anaemia of chronic disease -CBC trend GERD -pantoprazole 40mg PO every day -tums 500mg PO q4h/PRN Tobacco dependence Estimated 1/2 ppd cigarette use. -NRT patches 14mg every day Goals of care Multiple prior conversations of hospice care given end stage COPD. Not currently interested in hospice/palliative referral at time of admission. Confirms her preference of DNR/DNI. Has capacity to make medical decisions at time of transfer/admission. -DNR/DNI -review hospice information referral as indicated Diet: Regular Diet Adult Adult Formula Drip Feeding: Specified Time Jevity 1.5; Nasogastric tube; Goal Rate: 75; mL/hr; From: 8:00 PM; To: 6:00 AM DVT Prophylaxis: Enoxaparin (Lovenox) SQ [place] Catheter: Not present Lines: None Cardiac Monitoring: None Code Status: No CPR- Do NOT Intubate Clinically Significant Risk Factors # Cachexia: Estimated body mass index is 15.62 kg/m?? as calculated from the following: Height as of this encounter: 1.626 m (5' 4). Weight as of this encounter: 41.3 kg (91 lb)., PRESENT ON ADMISSION Social Drivers of Health Depression: At risk (08/23/2023) Received from [employer] PHQ-2 PHQ-2 Score: 4 Tobacco Use: High Risk (12/06/2024) Received from [employer] [facility] Patient History Smoking Tobacco Use: Every Day Smokeless Tobacco Use: Never Interpersonal Safety: High Risk (03/19/2025) Interpersonal Safety Do you feel physically and emotionally safe where you currently live?: No Within the past 12 months, have you been hit, slapped, kicked or otherwise physically hurt by someone?: No Within the past 12 months, have you been humiliated or emotionally abused in other ways by your partner or ex-partner?: No Disposition Plan Medically Ready for Discharge: Anticipated in 2-4 Days Yinka Ahmadi MD Hospitalist Service LTACH Securely message with [employer] (more info) Text page via [facility] Paging/Directory Interval History Transferred from [place]. Stable on near baseline respiratory support requirements. Physical Exam Vital Signs: Temp: 98.1 ??F (36.7 ??C) Temp src: Oral BP: 114/58 Pulse: 83 Resp: 20 SpO2: (!) 91 % O2 Device: Nasal cannula with humidification Oxygen Delivery: 2 LPM Weight: 91 lbs 0 oz Constitutional: alert, no distress; diffuse muscle/fat wasting Respiratory: globally muted sounds, no crackles/rales/wheeze Cardiovascular: RRR no m/g/r GI: scaphoid abd, soft, nontender, nondistended Musculoskeletal: shoulder/elbow flexion/extension 5/5 bilaterally and symmetric Neurologic: AOx4, CN II-XII intact Medical Decision Making 55 MINUTES SPENT BY ME on the date of service doing chart review, history, exam, documentation & further activities per the note. MANAGEMENT DISCUSSED with the following over the past 24 hours: patient NOTE(S)/MEDICAL RECORDS REVIEWED over the past 24 hours: RN notes, RT notes, managing consultant clinical professor notes Data I have personally reviewed the following data over the past 24 hrs: 10.7 \ 9.9 (L) / 347 138 101 20.1 / 146 (H) 4.6 31 (H) 0.61 \ ALT: 41 AST: 26 AP: 76 TBILI: 0.2 ALB: 3.5 TOT PROTEIN: 6.5 LIPASE: N/A Imaging results reviewed over the past 24 hrs: Recent Results (from the past 24 hours) XR Abdomen Port 1 View Narrative EXAM: XR ABDOMEN PORT 1 VIEW LOCATION: [facility] DATE: 03/19/2025 INDICATION: Verify tube placement COMPARISON: None. Impression IMPRESSION: Feeding tube tip in the stomach. Bowel gas within normal limits. Moderate stool burden.Cholecystectomy clips. * Rick Delgadillo RN - 03/19/2025 5:34 PM CDT Images from the original note were not included. This nurse went to see this newly admitted patient to secure her NG tube with bridle. Tube was placed at the prior hospital and secured with FTAD. She has device-related pressure ulcer on the tip of her right nostril (see picture) seen after removal of FTAD. This was possibly caused by the FTAD's hard part which was seen pressing on the nose. Both patient and her daughter were informed of the process of placing bridle. The picture of bridle secured to patient nose that came with the device packaging was shown to both of them. Their questions were answered prior to successfully placing the bridle with minimal discomfort though patient was moderately anxious prior, during, and after the device placement. A voice message was left for the [facility] group about the pressure injury.Rick Delgadillo RN * Joyce Carreon RT - 03/19/2025 4:51 PM CDT Pt is currently on a 2L NC Sating 90-93%, HR 80-86, RR 12-22, BBS- Clear/Diminished. BiPAP at nightand PRN. BiPAP settings are ST 14/6, 10, 28%. SpO2 goal of 88-92%. PRN neb given per pt request. RTwill continue to monitor. documented in this encounter H&P Notes * Yinka Ahmadi MD - 03/19/2025 10:26 AM CDT LTACH History and Physical - Hospitalist Service Date of Admission: 03/19/25 Assessment & Plan Bianca Wang is a 69F transferred from [place], initially admitted 03/03/25 for small bowel obstruction medically managed; pmhx includes COPD (gold 4E, 2L baseline supplemental, FEV1 24%), pHTN,cachexia, anaemia of chronic disease, SUSI, IBS, fibromyalgia; transferred 03/19 for dedicated therapies in setting of frequent BiPAP support requirements. LTACH COURSE: 03/19-03/24: Transferred from [place] 03/19. Weaning to baseline 2L supplemental oxygen; persistent weakness and abdominal pain--limiting her oral intake COPD exacerbation COPD (FEV1 24%, GOLD 4E, 2L supplemental) Pulmonary hypertension TTE 04/16: RVSP 51mmHg, 03/08: RVSP 31mmHg. Ascending aorta diameter of 3.7cm. 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 Referred to pulmonary rehab. New start of BiPAP during immediate prior hospitalisation. [facility] -supplemental oxygen to saturations >90% -breo ellipta 200-25mcg INH 1 puff daily (replaces trelegy) -incruse ellipta 62.5mcg INH 1 puff daily (replaces trelegy) -albuterol INH q2h/PRN -morphine 5mg SL q1h/PRN -RT protocols -pulmonology consulted for BiPAP home qualification Small bowel obstruction Chronic abdominal pain Irritable bowel syndrome Chronic abdominal pain, past adhesions noted in prior surgeries and on CT but no definitive mechanical obstructions; medically managed. Hx of R hemicolectomy in 2021. Temporarily required TPN for nutrition while at [place]. NGT required for nutrtional support, replaced around March 07. -NGT -Tube feeds per RD -senokot PO BID -colace 100mg PO BID/PRN Cachexia In setting of end stage COPD. -NGT placed around March 07 -RD for tube feeds -offered palliative/hospice referral for information purposes, declined as of 03/19 Generalised anxiety -buspar 30mg PO BID -fluoxetine 40mg PO every day -atarax 50mg PO BID/PRN -lorazepam 1mg q6h/PRN Fibromyalgia -tylenol PO PRN -PT Anaemia of chronic disease -CBC trend GERD -pantoprazole 40mg PO every day -tums 500mg PO q4h/PRN Tobacco dependence Estimated 1/2 ppd cigarette use. -NRT patches 14mg every day Goals of care Multiple prior conversations of hospice care given end stage COPD. Not currently interested in hospice/palliative referral at time of admission. Confirms her preference of DNR/DNI. Has capacity to make medical decisions at time of transfer/admission. -DNR/DNI -review hospice information referral as indicated Diet: Regular Diet Adult Adult Formula Drip Feeding: Specified Time Jevity 1.5; Nasogastric tube; Goal Rate: 75; mL/hr; From: 8:00 PM; To: 6:00 AM DVT Prophylaxis: Enoxaparin (Lovenox) SQ [place] Catheter: Not present Lines: None Cardiac Monitoring: None Code Status: No CPR- Do NOT Intubate Clinically Significant Risk Factors Present on Admission # Drug Induced Coagulation Defect: home medication list includes an anticoagulant medication # Anemia: based on hgb <11 # Cachexia: Estimated body mass index is 15.62 kg/m?? as calculated from the following: Height as of this encounter: 1.626 m (5' 4). Weight as of this encounter: 41.3 kg (91 lb). Disposition Plan Medically Ready for Discharge: Anticipated in 5+ Days Yinka Ahmadi MD Hospitalist Service LTACH Securely message with [employer] (more info) Text page via [facility] Paging/Directory Chief Complaint Generalised weakness, abdominal pain History is obtained from the patient and electronic health record History of Present Illness Bianca Wang is a 69F transferred from [place], initially admitted 03/03/25 for small bowel obstruction medically managed; pmhx includes COPD (gold 4E, 2L baseline supplemental, FEV1 24%), pHTN,cachexia, anaemia of chronic disease, SUSI, IBS, fibromyalgia; transferred 03/19 for dedicated therapies in setting of frequent BiPAP support requirements. Past Medical History No past medical history on file. Past Surgical History No past surgical history on file. Prior to Admission Medications Prior to Admission Medications Prescriptions Last Dose Informant Patient Reported? Taking? Afaaggopifm-Cdkwlnwir-Xxljbaylzb (TRELEGY ELLIPTA) 200-62.5-25 MCG/ACT oral inhaler 03/18/2025 at 7:02 PM Yes Yes Sig: Inhale 1 puff into the lungs daily. LORazepam (ATIVAN) 1 MG tablet 03/19/2025 at 6:52 AM No Yes Sig: Take 1 tablet (1 mg) by mouth 2 times daily as needed for anxiety Patient taking differently: Take 1 mg by mouth every 6 hours as needed for anxiety. albuterol (PROVENTIL) (2.5 MG/3ML) 0.083% neb solution 03/18/2025 Yes Yes Sig: Take 2.5 mg by nebulization every 2 hours as needed for shortness of breath or wheezing. busPIRone (BUSPAR) 10 MG tablet 03/19/2025 at 8:50 AM Yes Yes Sig: Take 30 mg by mouth 2 times daily. calcium carbonate (TUMS) 500 MG chewable tablet 03/19/2025 at 10:52 AM Yes Yes Sig: Take 1 chew tab by mouth every 4 hours as needed for heartburn. enoxaparin ANTICOAGULANT (LOVENOX) 30 MG/0.3ML syringe 03/18/2025 Yes Yes Sig: Inject 1 mg/kg subcutaneously at bedtime. hydrOXYzine (ATARAX) 50 MG tablet Past Week No Yes Sig: Take 1 tablet (50 mg) by mouth every 4 hours Patient taking differently: Take 50 mg by mouth 2 times daily as needed for anxiety. ipratropium - albuterol 0.5 mg/2.5 mg/3 mL (DUONEB) 0.5-2.5 (3) MG/3ML neb solution 03/19/2025 at 8:50 AM Yes Yes Sig: Take 1 vial by nebulization every 6 hours. morphine sulfate (ROXANOL) 20 mg/mL (HIGH CONC) soln 03/19/2025 at 8:51 AM Yes Yes Sig: Take 5 mg by mouth 2 times daily as needed (air hunger). multivitamin w/minerals (THERA-VIT-M) tablet 03/19/2025 at 8:50 AM No Yes Sig: Take 1 tablet by mouth daily nicotine (NICODERM CQ) 14 MG/24HR 24 hr patch 03/18/2025 at 9:00 PM No Yes Sig: Place 1 patch onto the skin daily Patient taking differently: Place 1 patch onto the skin at bedtime. omeprazole (PRILOSEC OTC) 20 MG EC tablet 03/19/2025 at 6:50 AM Yes Yes Sig: Take 20 mg by mouth daily. ondansetron (ZOFRAN ODT) 4 MG ODT tab 03/18/2025 Yes Yes Sig: Take 4 mg by mouth every 6 hours as needed for nausea. potassium chloride thuan ER (KLOR-CON M20) 20 MEQ CR tablet 03/19/2025 at 8:50 AM Yes Yes Sig: Take 20 mEq by mouth 2 times daily. sennosides (SENOKOT) 8.6 MG tablet 03/19/2025 No Yes Sig: Take 1 tablet by mouth 2 times daily as needed for constipation Patient taking differently: Take 1 tablet by mouth 2 times daily. thiamine (B-1) 100 MG tablet 03/19/2025 at 8:50 AM No Yes Sig: Take 1 tablet (100 mg) by mouth daily Facility-Administered Medications: None Review of Systems The 10 point Review of Systems is negative other than noted in the HPI or here. Physical Exam Vital Signs: Temp: 98 ??F (36.7 ??C) Temp src: Oral BP: 119/59 Pulse: 81 Resp: 12 SpO2: 93 % O2 Device: BiPAP/CPAP Oxygen Delivery: 2 LPM Weight: 91 lbs 0 oz Constitutional: awake, alert, cooperative, no apparent distress, and appears stated age Respiratory: severely reduced sounds, observable chest rise/fall Cardiovascular: RRR no m/g/r GI: scaphoid abd, soft, nontender, nondistended Musculoskeletal: Shoulder/elbow flexion/extension 5/5 bilaterally and symmetric; ambulatory for short distances on observation; cachexia Neurologic: AOx4, CN II-XII intact Medical Decision Making 75 MINUTES SPENT BY ME on the date of service doing chart review, history, exam, documentation & further activities per the note. MANAGEMENT DISCUSSED with the following over the past 24 hours: Patient, discharging physician NOTE(S)/MEDICAL RECORDS REVIEWED over the past 24 hours: H&P, discharge summary Tests ORDERED & REVIEWED in the past 24 hours: - See lab/imaging results included in the data section of the note Data I have personally reviewed the following data over the past 24 hrs: 10.7 \ 9.9 (L) / 347 135 98 21.3 / 107 (H) 4.7 32 (H) 0.64; 0.64 \ ALT: 41 AST: 26 AP: 76 TBILI: 0.2 ALB: 3.5 TOT PROTEIN: 6.5 LIPASE: N/A Imaging results reviewed over the past 24 hrs: Recent Results (from the past 24 hours) XR Abdomen Port 1 View Narrative EXAM: XR ABDOMEN PORT 1 VIEW LOCATION: [facility] DATE: 03/19/2025 INDICATION: Verify tube placement COMPARISON: None. Impression IMPRESSION: Feeding tube tip in the stomach. Bowel gas within normal limits. Moderate stool burden.Cholecystectomy clips. documented in this encounter Consult Notes * Carmen Greer RN - 03/20/2025 2:15 PM CDTAssociated Order(s): CARE MANAGEMENT / SOCIAL WORK IP CONSULT Care Management Initial Consult General Information Copied from H&P Bianca Wang is a 69F transferred from [place], initially admitted 03/03/25 for small bowel obstruction medically managed; pmhx includes COPD (gold 4E, 2L baseline supplemental, FEV1 24%), pHTN,cachexia, anaemia of chronic disease, SUSI, IBS, fibromyalgia; transferred 03/19 for dedicated therapies in setting of frequent BiPAP support requirements. Assessment completed with: Patient, Type of CM/SW Visit: CM Role Introduction Primary Care Provider verified and updated as needed: Yes Readmission within the last 30 days: no previous admission in last 30 days Reason for Consult: discharge planning Advance Care Planning: Advance Care Planning Reviewed: present on chart Communication Assessment Patient's communication style: spoken language (Slovenian or Bilingual) Hearing Difficulty or Deaf: yes (Left ear, [place]) Wear Glasses or Blind: yes Cognitive Cognitive/Neuro/Behavioral: WDL Living Environment: People in home: alone Current living Arrangements: house Able to return to prior arrangements: other (see comments) Living Arrangement Comments: TBD Family/Social Support: Care provided by: self Provides care for: no one Marital Status: Single Support system: Children Description of Support System: Supportive, Involved Current Resources: Patient receiving home care services: No Community Resources: None Equipment currently used at home: (home oxygen, 2 l/min) Supplies currently used at home: Oxygen Tubing/Supplies Employment/Financial: Employment Status: retired Financial Concerns: none Does the patient's insurance plan have a 3 day qualifying hospital stay waiver? No Lifestyle & Psychosocial Needs: Social Drivers of Health Food Insecurity: Low Risk (03/19/2025) Food Insecurity Within the past 12 months, did you worry that your food would run out before you got money to buy more?: No Within the past 12 months, did the food you bought just not last and you didn???t have money to getmore?: No Depression: At risk (08/23/2023) Received from [employer] PHQ-2 PHQ-2 Score: 4 Housing Stability: Low Risk (03/19/2025) Housing Stability Do you have housing? : Yes Are you worried about losing your housing?: No Tobacco Use: High Risk (12/06/2024) Received from [employer] [facility] Patient History Smoking Tobacco Use: Every Day Smokeless Tobacco Use: Never Passive Exposure: Not on file Financial Resource Strain: Low Risk (03/19/2025) Financial Resource Strain Within the past 12 months, have you or your family members you live with been unable to get utilities (heat, electricity) when it was really needed?: No Alcohol Use: Not on file Transportation Needs: Low Risk (03/19/2025) Transportation Needs Within the past 12 months, has lack of transportation kept you from medical appointments, getting your medicines, non-medical meetings or appointments, work, or from getting things that you need?: No Physical Activity: Not on file Interpersonal Safety: High Risk (03/19/2025) Interpersonal Safety Do you feel physically and emotionally safe where you currently live?: No Within the past 12 months, have you been hit, slapped, kicked or otherwise physically hurt by someone?: No Within the past 12 months, have you been humiliated or emotionally abused in other ways by your partner or ex-partner?: No Stress: Not on file Social Connections: Not on file Health Literacy: Not on file Functional Status: Prior to admission patient needed assistance: Dependent ADLs:: Dressing, Eating, Grooming, Incontinence, Positioning, Transfers Dependent IADLs:: Cleaning, Cooking, Laundry, Shopping, Meal Preparation, Medication Management, Money Management Assesssment of Functional Status: Not at baseline with ADL Functioning Mental Health Status:n/a Chemical Dependency Status: n/a Values/Beliefs: Spiritual, Cultural Beliefs, Uatsdin Practices, Values that affect care: yes Cultural/Uatsdin Practices Patient Routinely Participates In: other (see comments) (Hoahaoism) Discussed ???Partnership in Safe Discharge Planning??? document with patient/family: Yes: Discussedwith patient during care management assessment. Additional Information: Met with patient this morning to introduce care management role and gave patient the contact information for JEAN-CLAUDE and RN ALTAF. Reviewed patient's code status, (DNR/DNI); she confirmed that she lives in [place] - she was at [facility] because she was visiting her family in [place] whenshe became ill. Patient reports that her primary MD is Robert Riley in [place]. Patient has 3 adult daughters: Michael, Ana and Stacy. Her ex- has . Patient reports that shehas home O2 and she thinks its from [facility]. Patient reports that she was still driving at the time of her hospital admission. 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 Next Steps: Will follow patient during her LTACH admission; anticipate that we will schedule CPM inabout 2 weeks time - the week of April 01. Carmen Greer, RN, BSN Care Coordination [facility] [phone] * Cindy Cunningham, RD - 03/20/2025 11:50 AM CDTAssociated Order(s): NUTRITION SERVICES ADULT IP CONSULT; NUTRITION SERVICES ADULT IP CONSULT CLINICAL NUTRITION SERVICES - ASSESSMENT NOTE RECOMMENDATIONS FOR MDs/PROVIDERS TO ORDER: None Registered Dietitian Interventions: Continue current TF regimen Future/Additional Recommendations: Wean off TF as able pending PO intakes/ability to increase REASON FOR ASSESSMENT Provider order - Registered Dietitian to order TF per Medical Nutrition Therapy Guidelines INFORMATION OBTAINED Patient not available for interview due to asleep on Bipap NUTRITION HISTORY RD provided from [facility] 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: Low appetite for ~2 years, 20# weight loss in the past 1 year Poor intakes at previous hospital, eating 0-25% meals brought in by family, c/o severe abdominal pain TF via NGT meeting 75% estimated needs Patient drinking fluids well Eating ~300 kcal/day Isosource 1.5 at 75 mL/hr x10 hrs noc FWF 60 mL TID CURRENT NUTRITION ORDERS Diet: Orders Placed This Encounter Regular Diet Adult Nutrition Support: NGT placed 03/11 Jevity 1.5 at 75 mL/hr x10 hrs (8pm-6am) --> Previous TF formula Isosource 1.5 at [facility], same rate/time FWF: 90 mL before/after each feeding CURRENT INTAKE/TOLERANCE Patient tolerating TF regimen well per previous RD. LABS Nutrition-relevant labs: Reviewed MEDICATIONS Nutrition-relevant medications: MVI/M, protonix, Kcl, Senokot BID, thiamine 100 mg daily ANTHROPOMETRICS Height: 162.6 cm (5' 4) Admission Weight: 41.3 kg (91 lb) (03/19/25 1240) Most Recent Weight: 41.3 kg (91 lb) (03/19/25 1240) BMI: Body mass index is 15.62 kg/m??. Weight History: Reported 20# weight loss at previous hospital, unable to verify with patient d/t asleep Wt Readings from Last 10 Encounters: 03/19/25 41.3 kg (91 lb) 02/14/23 41.1 kg (90 lb 9.7 oz) Dosing Weight: 41 kg, based on actual wt ASSESSED NUTRITION NEEDS Estimated Energy Needs: 3276-6938 kcals/day (30 - 35 kcals/kg) Justification: Increased needs, Repletion, and Underweight Estimated Protein Needs: 61-82 grams protein/day (1.5 - 2 grams of pro/kg) Justification: Increased needs and Repletion Estimated Fluid Needs: 25 - 30 mL/kg Justification: Maintenance SYSTEM AND PHYSICAL FINDINGS GI symptoms: 3x loose stools today Skin/wounds: No open lesions noted in chart MALNUTRITION % Intake: < 75% for >/= 3 months (moderate) % Weight Loss: Unable to assess Subcutaneous Fat Loss: Global severe per visual observation Muscle Loss: Global severe per visual observation Fluid Accumulation/Edema: None noted Malnutrition Diagnosis: Severe malnutrition in the context of chronic illness Malnutrition Present on Admission: Yes NUTRITION DIAGNOSIS Malnutrition (undernutrition) related to COPD, poor appetite as evidenced by severe muscle and fat wasting, inadequate oral intakes x2 years. INTERVENTIONS Enteral nutrition management Management of flushing of feeding tube GOALS Total avg nutritional intake to meet a minimum of 30 kcal/kg and 1.5 g PRO/kg daily (per dosing wt 41 kg). Weight gain > 41 kg MONITORING/EVALUATION Progress toward goals will be monitored and evaluated per policy. Cindy Cunningham RDN, [facility] Office: [phone] or [place] * Garry Solis APRN [facility] - 03/19/2025 4:06 PM CDTAssociated Order(s): PULMONARY IP CONSULT Consultation - Pulmonary Medicine JAELYN Wyatt 1955, COPD exacerbation (H) [J44.1] Code status: No CPR- Do NOT Intubate Extended Emergency Contact Information Primary Emergency Contact: MICHAEL HARRISON Mobile Relation: Daughter Secondary Emergency Contact: Enrique Skinner Mobile Relation: Daughter Impressions: 69F with pmhx includes COPD (gold 4E, 2L baseline supplemental), pHTN, cachexia, anemia of chronic disease, SUSI, IBS, fibromyalgia. Admitted 03/03/25 for small bowel obstruction medically managed. Alsotreated for suspected aspiration pneumonia and given 5 day course of IV/oral steroids. Transferred to LTAC 03/19 for dedicated therapies in setting of frequent BiPAP support requirements. Problems: Acute on chronic hypoxic and hypercapnic respiratory failure Severe COPD: followed by Dr. Kirby with outpatient pulmonary. 08/2024 PFTs show FEV1 0.54L, 24% predicted. FVC 1.5L, 52% predicted. 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 Ahmadi to see Biancaangela Wang in consultation for trach and ventilator management. Bianca Wang is a 69 year old year old female admitted to [facility] on 03/19/2025 for ongoing treatment of respiratory failure. The referring facility is [facility]. Records from that facility are available to assist in historical details. Further history is provided by daughter at bedside. 69F transferred from [place], initially admitted 03/03/25 for small bowel obstruction medically managed; pmhx includes COPD (gold 4E, 2L baseline supplemental, FEV1 24%), pHTN, cachexia, anaemia of chronic disease, SUSI, IBS, fibromyalgia; transferred 03/19 for dedicated therapies in setting of frequent BiPAP support requirements. In bed on 2L O2 requesting to rest on BiPAP. Dtr at bedside. No acute complaints, breathing stable. 1000mL on IS Medical History @[email or web address] Social History Reviewed, and she reports that she has been smoking cigarettes. She started smoking about 53 years ago. She has a 53.5 pack-year smoking history. She has never used smokeless tobacco. Smoking history: History Smoking Status Every Day Packs/day: 1.00 Years: 51.00 Types: Cigarettes Start date: 1973 Smokeless Tobacco Never Family History Reviewed, and family history is not on file. Allergies Allergies Allergen Reactions Cefadroxil Anaphylaxis Bupropion Unknown Erythromycin Unknown Current Medications: Current Facility-Administered Medications Medication Dose Route Frequency Provider Last Rate Last Admin busPIRone (BUSPAR) tablet 30 mg 30 mg Oral BID Yinka Ahmadi MD enoxaparin ANTICOAGULANT (LOVENOX) injection 30 mg 30 mg Subcutaneous Q24H Yinka Ahmadi MD fluticasone-vilanterol (BREO ELLIPTA) 200-25 MCG/ACT inhaler 1 puff 1 puff Inhalation Daily Yinka Ahmadi MD And umeclidinium (INCRUSE ELLIPTA) 62.5 MCG/ACT inhaler 1 puff 1 puff Inhalation Daily Yinka Ahmadi MD [START ON 03/20/2025] multivitamin w/minerals (THERA-VIT-M) tablet 1 tablet 1 tablet Oral Daily Yinka Ahmadi MD nicotine (NICODERM CQ) 14 MG/24HR 24 hr patch 1 patch 1 patch Transdermal At Bedtime Yinka Ahmadi MD [START ON 03/20/2025] pantoprazole (PROTONIX) EC tablet 40 mg 40 mg Oral QAM AC Yinka Ahmadi MD potassium chloride thuan ER (KLOR-CON M20) CR tablet 20 mEq 20 mEq Oral BID Yinka Ahmadi MD sennosides (SENOKOT) tablet 1 tablet 1 tablet Oral BID Yinka Ahmadi MD [START ON 03/20/2025] thiamine (B-1) tablet 100 mg 100 mg Oral Daily Yinka Ahmadi MD Review of Systems: A 10-system review was obtained and is negative with the exception of the symptoms noted above. Physical Exam: Pulse: [82-86] 86 Resp: [20-22] 20 SpO2: [90 %-92 %] 92 % @LASTENCWT@ Ventilator settings: Resp: 20 EXAM: Physical Exam Gen: No acute distress, cachectic HEENT: NT, NG in place CV: RRR, no m/g/r Resp: CTAB; diminished; non-labored Abd: soft, nontender, BS+ Skin: no rashes or lesions Ext: no edema Neuro: PERRL, nonfocal exam Pertinent Labs: Lab Results: personally reviewed. Recent Labs Lab 03/19/25 1321 WBC 10.7 HGB 9.9* HCT 31.7* PLT 347 Recent Labs Lab 03/19/25 1321 NA 135 CO2 32* BUN 21.3 ALKPHOS 76 ALT 41 AST 26 Pertinent Radiology: Radiology results: unable to view images CTA 03/10 No PE Pneumonia slowly improving Other pertinent data: TTE 03/08/2025 Final Impressions: 1. Normal left ventricular size, normal wall thickness, normal global systolic function, calculatedEF of 60 %. 2. Right ventricular cavity size is normal, global systolic RV function is normal. 3. The aortic valve is trileaflet and calcified, no stenosis and no regurgitation. 4. The inferior vena cava is dilated, respiratory size variation less than 50%. 5. No pericardial effusion. Extensive record review is performed. Long information about patient is reviewed in detail. The respiratory plan of care is discussed with RT. This patient will be rounded on regularly while requiring mechanical ventilator support. Please contact us with questions or concerns. Total time spent on pt examination and coordination of care was 60min Garry Solis CNP Pulmonary Medicine [facility] Pager [phone] Office: [phone] documented in this encounter Miscellaneous Notes * Plan of Care - Aliya Garcia RN - 03/21/2025 6:35 AM CDT Problem: Pain Acute Goal: Optimal Pain Control and Function Outcome: Progressing Intervention: Optimize Psychosocial Wellbeing Recent Flowsheet Documentation Taken 03/21/2025 012 by Aliya Garcia RN Diversional Activities: television Intervention: Prevent or Manage Pain Recent Flowsheet Documentation Taken 03/21/2025 012 by Aliya Garcia RN Sensory Stimulation Regulation: television on Bowel Elimination Promotion: adequate fluid intake promoted Medication Review/Management: medications reviewed Goal Outcome Evaluation: Patient alert and oriented x4, uses the Bipap at night, v/signs stable Patient denied pain / discomfort, seems to tolerate tube feeding well Will continue to monitor. * Plan of Care - Mae Appiah RT - 03/21/2025 6:03 AM CDT INITIAL 3 NIGHTS BIPAP/CPAP NOTE UNIT TYPE: V60 MASK TYPE: Small Face Mask SETTINGS: MODE: ST mode IPAP: 14 EPAP: 6 RATE: 10 FI02 : 21% TIME OF MASK PLACEMENT: 2214 TWO HOUR SKIN CHECK DONE AT: 00:30 No skin redness, or breakdown noted at this time. INTERVENTION INITIATED: No intervention necessary at this time. PATIENT'S TOLERANCE OF DEVICE: Pt is currently resting on BiPAP St mode 14/6 rate of 10 25% and tolerating well. Uses 2 L of oxygen during the day or when off of the BiPAP which is her baseline at home. Blood pressure 97/54, pulse 99, temperature 98.2 ??F (36.8 ??C), temperature source Axillary, resp.rate 25, height 1.626 m (5' 4), weight 41.3 kg (91 lb), SpO2 92%. RT will continue to follow and monitor. * Plan of Care - Maria C aCllaway RN - 03/20/2025 10:47 PM CDT Goal Outcome Evaluation: Pt VSS. Alert and oriented x 4. Can be very anxious. Denies pain dizziness, shortness of breath andlightheadedness. On nasal cannula/day and BiPAP at night. Stand by assist to the bathroom. Pt is onregular diet and nocturnal tube feeding. Pt ate 75% of her dinner with the support of her family. Last BM: 03/20/25. Continent of bowel and bladder. PRN Zofran and Ativan was given at 2019. Uses call light appropriately. Nasal gastric needs to be flush every shift to avoid the line to clog. Please pt want to have Zofran before meals. Continue to monitor. Maria C [place] RN [facility] * Plan of Care - Cammie Vidales RN - 03/20/2025 2:40 PM CDT Goal Outcome Evaluation: Problem: Adult Inpatient Plan of Care Goal: Optimal Comfort and Wellbeing Outcome: Progressing Intervention: Provide Person-Centered Care Recent Flowsheet Documentation Taken 03/20/2025 1018 by Cammie Vidales RN Trust Relationship/Rapport: care explained Patient took her morning medication late per her requested. Complains of anxiety and frequently requested lorazepam. Gave her ativan with some effects, pt declined offered hydroxyzine.Text paged provider to change Lorazepam frequency from every 6hours to every four hour per pt requested. * Plan of Care - Aliya Garcia RN - 03/20/2025 6:34 AM CDT Problem: Pain Acute Goal: Optimal Pain Control and Function Outcome: Progressing Intervention: Optimize Psychosocial Wellbeing Recent Flowsheet Documentation Taken 03/20/2025 0159 by Aliya Garcia RN Diversional Activities: television Intervention: Prevent or Manage Pain Recent Flowsheet Documentation Taken 03/20/2025 0159 by Aliya Garcia RN Sensory Stimulation Regulation: television on Bowel Elimination Promotion: adequate fluid intake promoted Medication Review/Management: medications reviewed Goal Outcome Evaluation: Patient alert and oriented x 4, uses the Bipap at night, v/signs stable. Patient had prn Lorazepam 1 mg tab for anxiety at 0040, also had Colace 100 mg per her request for constipation at 0154, did verbalized some relief after Seems to tolerate tube feeding well, will continue to monitor. * Plan of Care - Mae Appiah RT - 03/20/2025 5:59 AM CDT INITIAL 3 NIGHTS BIPAP/CPAP NOTE UNIT TYPE: V60 MASK TYPE: Small Face Mask SETTINGS: MODE: ST mode IPAP: 14 EPAP: 6 RATE: 10 FI02: 25% TIME OF MASK PLACEMENT: 2113 TWO HOUR SKIN CHECK DONE AT: 00:23 Liquicel applied on bridge of nose. No skin issue noted. INTERVENTION INITIATED: No intervention is necessary at this time. PATIENT'S TOLERANCE OF DEVICE: Pt currently remains on BiPAP and tolerating well. Used BiPAP throughout the night. Uses 2 L of oxygen during the day or when off of the BiPAP which is baseline oxygen at home. Prn neb given this shift per pt request. Blood pressure 104/57, pulse 93, temperature 97.7 ??F (36.5 ??C), temperature source Axillary, resp. rate 21, height 1.626 m (5' 4), weight 41.3 kg (91 lb), SpO2 94%.' RT will continue to follow. * Plan of Care - Maria C [place] RN - 03/19/2025 10:56 PM CDT Goal Outcome Evaluation: Pt BP at 1705, 114/58 at 1958, 98/57. Alert and oriented x 4. Pt can be very anxious when she is not included in her cares. Complains of pain 3/10 around the nostril area. Denies nausea, dizziness, shortness of breath and lightheadedness. On regular diet and on nocturnal tube feeding. On nasal cannula. Stand by assist to the bathroom. No BM for this evening. Continent of bowel and bladder. Skin lo oks fragile and dry. Ativan and Morphine PRN was given at 1727. Uses call light appropriately. Tellpatient which medications she is about to take to reduce anxiety. Continue to monitor. Maria C [place] RN [facility] * Plan of Care - Cammie Vidales RN - 03/19/2025 4:05 PM CDT Goal Outcome Evaluation: Problem: Adult Inpatient Plan of Care Goal: Optimal Comfort and Wellbeing Intervention: Provide Person-Centered Care Recent Flowsheet Documentation Taken 03/19/2025 1247 by Cammie Vidales RN Trust Relationship/Rapport: care explained Received patient and admitted on the unit/hospital from [facility]. Patient is alert and oriented, denies pains/discomfort, vital signs are within normal limits, spot checked blood glucose result (109mg/dl). Assessed patient skin is intact, observed generalized body pigmentation. Have gastric nasal feeding tube intact with slight redness observed to nares. Charge nurse text paged provider to obtain order for bridle to secure (NGT). * Pharmacy-Consult Note - Iliana Zamora RPH - 03/19/2025 2:57 PM CDT Pharmacy Tube Feeding Consult Medication reviewed for administration by feeding tube and for potential food/drug interactions. Recommendation: No changes are needed at this time. Pharmacy will continue to follow as new medications are ordered. Iliana Zamora RPh, BCCP, BPS * Pharmacy-Admission Medication History - Iliana Zamora RPH - 03/19/2025 2:15 PM CDT Pharmacy Note: LTACH Admission Drug Regimen Review Initial admission medication history information is not available in care everywhere Medication orders were signed & held for discharge from transferring facility? 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: Added: Albtuterol nebs q2h prn Buspar 30mg bid Tums 500mg q4h prn Lovenox 30mg at bedtime Trelegy 200-62.5-25 1 puff daily in the evening Morphine 20mg/ml - take 5mg bid prn air hunger Omeprazole 20mg daily Zofran ODT 4mg q6h prn Potasium 20meq CR bid Deleted: Albuterol MDI 2 puffs q4h prn Vit D3 1.25mg every 7 days Pepcid 20mg bid Prozac 40mg daily Advair 500-50 1 puff bid Gabapentin 100mg bid CBD gummies prn Nicotine 2mg lozenge q1h prn Pantroprazole 40mg daily Miralax 17gm daily Prednisone taper Spiriva capsules, inhale 1 capsule daily Changed: Hydroxyzine 50mg q4h prn to bid prn Duo nebs 1 vial qid prn to q6h Lorazepam 1mg bid prn to q6h prn Senna 8.6mg bid prn to BID FOOD SERVICE AMBASSADOR Med List Medication Sig Last Dose/Taking albuterol (PROVENTIL) (2.5 MG/3ML) 0.083% neb solution Take 2.5 mg by nebulization every 2 hours asneeded for shortness of breath or wheezing. 03/18/2025 busPIRone (BUSPAR) 10 MG tablet Take 30 mg by mouth 2 times daily. 03/19/2025 at 8:50 AM calcium carbonate (TUMS) 500 MG chewable tablet Take 1 chew tab by mouth every 4 hours as needed for heartburn. 03/19/2025 at 10:52 AM enoxaparin ANTICOAGULANT (LOVENOX) 30 MG/0.3ML syringe Inject 1 mg/kg subcutaneously at bedtime. 03/18/2025 FLUoxetine (PROZAC) 40 MG capsule Take 40 mg by mouth daily. 03/19/2025 Beiryptgtvt-Ollexahuj-Hdomufrhvy (TRELEGY ELLIPTA) 200-62.5-25 MCG/ACT oral inhaler Inhale 1 puff into the lungs daily. 03/18/2025 at 7:02 PM hydrOXYzine (ATARAX) 50 MG tablet Take 1 tablet (50 mg) by mouth every 4 hours (Patient taking differently: Take 50 mg by mouth 2 times daily as needed for anxiety.) Past Week ipratropium - albuterol 0.5 mg/2.5 mg/3 mL (DUONEB) 0.5-2.5 (3) MG/3ML neb solution Take 1 vial by nebulization every 6 hours. 03/19/2025 at 8:50 AM LORazepam (ATIVAN) 1 MG tablet Take 1 tablet (1 mg) by mouth 2 times daily as needed for anxiety (Patient taking differently: Take 1 mg by mouth every 6 hours as needed for anxiety.) 03/19/2025 at 6:52 AM morphine sulfate (ROXANOL) 20 mg/mL (HIGH CONC) soln Take 5 mg by mouth 2 times daily as needed (air hunger). 03/19/2025 at 8:51 AM multivitamin w/minerals (THERA-VIT-M) tablet Take 1 tablet by mouth daily 03/19/2025 at 8:50 AM nicotine (NICODERM CQ) 14 MG/24HR [address] 1 patch onto the skin daily (Patient taking differently: Place 1 patch onto the skin at bedtime.) 03/18/2025 at 9:00 PM omeprazole (PRILOSEC OTC) 20 MG EC tablet Take 20 mg by mouth daily. 03/19/2025 at 6:50 AM ondansetron (ZOFRAN ODT) 4 MG ODT tab Take 4 mg by mouth every 6 hours as needed for nausea. 03/18/2025 potassium chloride thuan ER (KLOR-CON M20) 20 MEQ CR tablet Take 20 mEq by mouth 2 times daily. 03/19/2025 at 8:50 AM sennosides (SENOKOT) 8.6 MG tablet Take 1 tablet by mouth 2 times daily as needed for constipation (Patient taking differently: Take 1 tablet by mouth 2 times daily.) 03/19/2025 thiamine (B-1) 100 MG tablet Take 1 tablet (100 mg) by mouth daily 03/19/2025 at 8:50 AM Admission drug regimen review has been completed. Pertinent information or medication issues identified include: Pharmacy will change omeprazole to Protonix per auto substitution policy, consider using prescribing protonix on discharge as patient was using Protonix prior to admission The following FOOD SERVICE AMBASSADOR medications were not continued during hospitalization at [facility] FOOD SERVICE AMBASSADOR medications on our list are from 2022. Per dispense report the following medication have been filled in the past couple of months Ergocalciferol 50,000 units - capsule weekly Pepcid 20mg bid Fluoxetine 40mg daily Pantoprazole 40mg daily Please assess whether a future restart would be appropriate. Thank you for the opportunity to participate in the care of this patient. Iliana Zamora RPh, BCCP, BPS 03/19/2025 2:15 PM Cosigned by Yinka Ahmadi MD at 03/20/2025 9:56 AM CDT Associated attestation - Yinka Ahmadi MD - 03/20/2025 9:56 AM CDT I have reviewed the information in this note. documented in this encounter Plan of Treatment Scheduled Orders Name Type Priority Associated Diagnoses Order Schedule CBC with platelets Lab Routine Every Mon until discontinued starting 03/19/2025, 1 completed Comprehensive metabolic panel Lab Routine Every Mon until discontinued starting 03/19/2025, 1 completed Oxygen: Nasal cannula Respiratory Care Routine Continuous RT until discontinued starting 03/19/2025 Creatinine Lab Routine Weekly until discontinued starting 03/21/2025, 1 completed RT communication: Respiratory Care Routine O ne Time for 1 Occurrences starting 03/19/2025 until 03/19/2025 BIPAP intermittent Respiratory Care Routine QHS until discontinued starting 03/19/2025 Basic metabolic panel Lab Routine Maria Isabel ry Mon until discontinued starting 03/25/2025 Magnesium Lab Routine Every Mon unti l discontinued starting 03/25/2025 Phosphorus Lab Routine Every Mon unti l discontinued starting 03/25/2025 documented as of this encounter Procedures * The patient is currently admitted. The information in this section might not be complete until the patient is discharged. Procedure Name Priority Date/Time Associated Diagnosis Comments CREATININE Routine 03/21/2025 6:18 AM CDT XR CHEST PORT 1 VIEW Routine 03/20/2025 10:56 AM CDT PHOSPHORUS Routine 03/20/2025 6:10 AM CDT MAGNESIUM Routine 03/20/2025 6:10 AM CDT BASIC METABOLIC PANEL Routine 03/20/2025 6:10 AM CDT INCENTIVE SPIROMETER INSTRUCT Routine 03/19/2025 2:46 PM CDT XR ABDOMEN PORT 1 VIEW Routine 2:25 PM CDT CREATININE Timed 03/19/2025 1:21 PM CDT COMPREHENSIVE METABOLIC PANEL Routine 03/19/2025 1:21 PM CDT CBC WITH PLATELETS Routine 03/19/2025 1: 21 PM CDT GLUCOSE BY METER Routine 03/19/2025 1:03 PM CDT documented in this encounter Results * Creatinine (03/21/2025 6:18 AM CDT) Creatinine 0.62 0.51 - 0.95 mg/dL 03/21/2025 8:26 AM CDT [facility] GFR Estimate >90 >60 mL/min/1.7 3m2 03/21/2025 8:26 AM CDT [facility] Comment:eGFR calculated us2020 CKD-EPI equation. Blood STRUCTURE OF LEFT WRIST REGION / Unknown Venipuncture / Unknown 03/21/2025 6:18 AM CDT 03/21/2025 6:37 AM CDT us Yinka Ahmadi MD LAB - BLOOD ORDERABLES Fin al Result [facility] Lab [address] [place] [address], [facility] * XR Chest Port 1 View (03/20/2025 10:56 AM CDT) Anatomical Region Laterality Modality Chest Computed Radiogr aphy 03/20/2025 10:5 6 AM CDT Impressions 03/20/2025 2:28 PM CDT IMPRESSION: Emphysematous change both lungs. Lungs are otherwise clear. Slight size prominence of the right hilum is probably due to the patient's relatively shallow inspiration during image acquisition. No visible pleural fluid. Heart size normal. Narrative 03/20/2025 2:28 PM CDT EXAM: XR CHEST PORT 1 VIEW LOCATION: [facility] DATE: 03/20/2025 INDICATION: Respiratory failure COMPARISON: CXRs 08/19/2023 and 08/16/2023 Procedure Note Jonathan Mata MD - 03/20/2025 EXAM: XR CHEST PORT 1 VIEW LOCATION: [facility] DATE: 03/20/2025 INDICATION: Respiratory failure COMPARISON: CXRs 08/19/2023 and 08/16/2023 IMPRESSION: Emphysematous change both lungs. Lungs are otherwise clear.Slight size prominence of the right hilum is probably due to the patient'srelatively shallow inspiration during image acquisition. No visiblepleural fluid. Heart size normal. Garry Solis [employer] [address] [employer] LIAISON IMG DIAGNOSTIC IMAGING ORDERABLES Final Result * Phosphorus (03/20/2025 6:10 AM CDT) Phosphorus 3.4 2.5 - 4.5 mg/dL 03/20/2025 8:10 AM CDT [facility] Blood STRUCTURE OF LEFT UPPER LIMB / Unknown Venipuncture / Unknown 03/20/2025 6:10 AM CDT 03/20/2025 6:43 AM CDT Yinka Ahmadi MD LAB - BLOOD ORDERABLES Fin al Result Performing Organization Address City/[facility]/ZIP Co de Phone Number [facility] Lab [address] * Magnesium (03/20/2025 6:10 AM CDT) Magnesium 1.9 1.7 - 2.3 mg/dL 03/20/2025 8:10 AM CDT [facility] Blood STRUCTURE OF LEFT UPPER LIMB / Unknown Venipuncture / Unknown 03/20/2025 6:10 AM CDT 03/20/2025 6:43 AM CDT Yinka Ahmadi MD LAB - BLOOD ORDERABLES Fin al Result Performing Organization Address City/[facility]/ZIP Co de Phone Number [facility] Lab [address] [place] [address], [facility] * (ABNORMAL) Basic metabolic panel (03/20/2025 6:10 AM CDT) Sodium 138 135 - 145 mmol/L 03/20/2025 8:10 AM CDT [facility] Potassium 4.6 3.4 - 5.3 mmol/L 03/20/2025 8:10 AM CDT [facility] Chloride 101 98 - 107 mmol/L 03/20/2025 8:10 AM CDT [facility] Carbon Dioxide (CO2) 31(H) 22 - 29 mmol/L 03/20/2025 8:10 AM CDT [facility] Anion Gap 6(L) 7 - 15 mmol/L 03/20/2025 8:10 AM CDT [facility] Urea Nitrogen 20.1 8.0 - 23.0 mg/dL 03/20/2025 8:10 AM CDT [facility] Creatinine 0.61 0.51 - 0.95 mg/dL 03/20/2025 8:10 AM CDT [facility] GFR Estimate >90 >60 mL/min/1.7 3m2 03/20/2025 8:10 AM CDT [facility] Comment:eGFR calculated usin 2020 CKD-EPI equation. Calcium 9.2 8.8 - 10.4 mg/dL 03/20/2025 8:10 AM CDT [facility] Glucose 146(H) 70 - 99 mg/dL 03/20/2025 8:10 AM CDT [facility] Blood STRUCTURE OF LEFT UPPER LIMB / Unknown Venipuncture / Unknown 03/20/2025 6:10 AM CDT 03/20/2025 6:43 AM CDT us Yinka Ahmadi MD LAB - BLOOD ORDERABLES Fin al Result [facility] Lab [address] [place] [address], [facility] * XR Abdomen Port 1 View (03/19/2025 2:25 PM CDT) Anatomical Region Laterality Modality Abdomen/Pelvis Computed Radiogr aphy 03/19/2025 2:25 PM CDT Impressions 03/19/2025 4:24 PM CDT IMPRESSION: Feeding tube tip in the stomach. Bowel gas within normal limits. Moderate stool burden. Cholecystectomy clips. Narrative 03/19/2025 4:24 PM CDT EXAM: XR ABDOMEN PORT 1 VIEW LOCATION: [facility] DATE: 03/19/2025 INDICATION: Verify tube placement COMPARISON: None. Procedure Note Mariana Lerma MD - 03/19/2025 EXAM: XR ABDOMEN PORT 1 VIEW LOCATION: [facility] DATE: 03/19/2025 INDICATION: Verify tube placement COMPARISON: None. IMPRESSION: Feeding tube tip in the stomach. Bowel gas within normallimits. Moderate stool burden. Cholecystectomy clips. Yinka Ahmadi MD IMG DIAGNOSTIC IMAGING ORD ERABLES Final Result * Creatinine (03/19/2025 1:21 PM CDT) Creatinine 0.64 0.51 - 0.95 mg/dL 03/19/2025 2:37 PM CDT [facility] GFR Estimate >90 >60 mL/min/1.7 3m2 03/19/2025 2:37 PM CDT [facility] Comment: eGFR calculated using 2020 CKD-EPI equation. eGFR calculated using 2020 CKD-EPI equation. Blood STRUCTURE OF LEFT UPPER LIMB / Unknown Venipuncture / Unknown 03/19/2025 1:21 PM CDT 03/19/2025 1:25 PM CDT Yinka Ahmadi MD LAB - BLOOD ORDERABLES Fin al Result [facility] Lab [address] [place] [address], [facility] * (ABNORMAL) Comprehensive metabolic panel (03/19/2025 1:21 PM CDT) Sodium 135 135 - 145 mmol/L 03/19/2025 2:37 PM CDT [facility] Potassium 4.7 3.4 - 5.3 mmol/L 03/19/2025 2:37 PM CDT [facility] Carbon Dioxide (CO2) 32(H) 22 - 29 mmol/L 03/19/2025 2:37 PM CDT [facility] Anion Gap 5(L) 7 - 15 mmol/L 03/19/2025 2:37 PM CDT [facility] Urea Nitrogen 21.3 8.0 - 23.0 mg/dL 03/19/2025 2:37 PM CDT [facility] Creatinine 0.64 0.51 - 0.95 mg/dL 03/19/2025 2:37 PM CDT [facility] GFR Estimate >90 >60 mL/min/1.7 3m2 03/19/2025 2:37 PM CDT [facility] Comment:eGFR calculated us2020 CKD-EPI equation. Calcium 9.0 8.8 - 10.4 mg/dL 03/19/2025 2:37 PM CDT [facility] Chloride 98 98 - 107 mmol/L 03/19/2025 2:37 PM CDT [facility] Glucose 107(H) 70 - 99 mg/dL 03/19/2025 2:37 PM CDT [facility] Alkaline Phosphatase 76 40 - 150 U/L 03/19/2025 2:37 PM CDT [facility] AST 26 0 - 45 U/L 03/19/2025 2:37 PM CDT [facility] ALT 41 0 - 50 U/L 03/19/2025 2:37 PM CDT [facility] Protein Total 6.5 6.4 - 8.3 g/dL 03/19/2025 2:37 PM CDT [facility] Albumin 3.5 3.5 - 5.2 g/dL 03/19/2025 2:37 PM CDT [facility] Bilirubin Total 0.2 <=1.2 mg/dL 03/19/2025 2:37 PM CDT [facility] Blood STRUCTURE OF LEFT UPPER LIMB / Unknown Venipuncture / Unknown 03/19/2025 1:21 PM CDT 03/19/2025 1:25 PM CDT us Yinka Ahmadi MD LAB - BLOOD ORDERABLES Fin al Result [facility] [address] [place] [address], [facility] * (ABNORMAL) CBC with platelets (03/19/2025 1:21 PM CDT) WBC Count 10.7 4.0 - 11.0 10e3/uL 03/19/2025 1:32 PM CDT [facility] RBC Count 3.37(L) 3.80 - 5.20 10e6/uL 03/19/2025 1:32 PM CDT [facility] Hemoglobin 9.9(L) 11.7 - 15.7 g/dL 03/19/2025 1:32 PM CDT [facility] Hematocrit 31.7(L) 35.0 - 47.0 % 03/19/2025 1:32 PM CDT [facility] MCV 94 78 - 100 fL 03/19/2025 1:32 PM CDT [facility] MCH 29.4 26.5 - 33.0 pg 03/19/2025 1:32 PM CDT [facility] MCHC 31.2(L) 31.5 - 36.5 g/dL 03/19/2025 1:32 PM CDT [facility] RDW 13.4 10.0 - 15.0 % 03/19/2025 1:32 PM CDT [facility] Platelet Count 347 150 - 450 10e3/uL 03/19/2025 1:32 PM CDT [facility] Blood STRUCTURE OF LEFT UPPER LIMB / Unknown Venipuncture / Unknown 03/19/2025 1:21 PM CDT 03/19/2025 1:26 PM CDT Yinka Ahmadi MD LAB - BLOOD ORDERABLES Fin al Result [facility] [address] * (ABNORMAL) Glucose by meter (03/19/2025 1:03 PM CDT) GLUCOSE BY METER POCT 109(H) 70 - 99 mg/dL 03/19/2025 1:13 PM CDT [facility] POC Blood, Capillary BLOOD SPECIMEN / Unknown 03/19/2025 1:03 PM CDT 03/19/2025 1:13 PM CDT Jermaine Aparicio MD LAB - BEAKER POCT Final Result [facility] POC [address] [place] [address], [facility] documented in this encounter Visit Diagnoses Not on filedocumented in this encounter Administered Medications Active Administered Medications - up to 3 most recent administrations Medication Order MAR Action Action Date Dose Rate Site acetaminophen (TYLENOL) oral liquid 650 mg 650 mg, Per Feeding Tube, EVERY 4 HOURS PRN, mild pain, Starting on Tue03/19/25 at 1312, Use if no oral route available. Maximum acetaminophen dose from all sources=75 mg/kg/day not to exceed 4 grams/day. acetaminophen (TYLENOL) tablet 650 mg 650 mg, Oral, EVERY 4 HOURS PRN, mild pain, fever, headaches, Starting on Tue03/19/25 at 1312, Maximum acetaminophen dose from all sources = 75 mg/kg/day not to exceed 4 grams/day. albuterol (PROVENTIL) neb solution 2.5 mg 2.5 mg, Nebulization, EVERY 2 HOURS PRN, shortness of breath, wheezing, Starting on Tue03/19/25 at 1458 $Given 03/21/2025 7:37 AM CDT 2.5 mg $Given 03/20/2025 4:22 PM CDT 2.5 mg $Given 03/20/2025 7:52 AM CDT 2.5 mg busPIRone (BUSPAR) tablet 30 mg 30 mg, Oral, 2 TIMES DAILY, First dose on Tue03/19/25 at 2100 $Given 03/21/2025 9:20 AM CDT 30 mg $Given 03/20/2025 8:20 PM CDT 30 mg $Given 03/20/2025 11:26 AM CDT 30 mg dextrose 50 % injection 25-50 mL 25-50 mL, Intravenous, EVERY 15 MIN PRN, low blood sugar, Administer over 1-5 Minutes, Starting on Tue03/19/25 at 1312, Use if have IV access, BG less than 70 mg/dL and meet dose criteria below: Dose if conscious and alert (or disorientated) and NPO = 25 mL Dose if unconscious / not alert = 50 mL Give first dose for initial blood glucose less than 70 mg/dL. If blood glucose at 15 minute recheck is less than or equal to 80 mg/dL continue to administer carbohydrate treatment every 15 minutes, as needed, based on blood glucose and assessment parameters until blood glucose level is above 80 mg/dL x 2 consecutive 15 minute checks. docusate (COLACE) 50 MG/5ML liquid 100 mg 100 mg, Oral, 2 TIMES DAILY PRN, constipation, Starting on Tue03/19/25 at 1312, Use if no oral route available. Hold for loose stools. docusate sodium (COLACE) capsule 100 mg 100 mg, Oral, 2 TIMES DAILY PRN, constipation, Starting on Tue03/19/25 at 1312, Hold for loose stools. $Given 03/20/2025 1:54 AM CDT 100 mg enoxaparin ANTICOAGULANT (LOVENOX) injection 30 mg 30 mg, Subcutaneous, EVERY 24 HOURS, First dose on Tue03/19/25 at 2100, Contact provider if platelet count drops by 50% or more after enoxaparin initiation OR if platelet count falls below 50 x 10e3/uL. $Given 03/20/2025 8:27 PM CDT 30 mg Abdominal Tissue $Given 03/19/2025 8:21 PM CDT 30 mg Ab dominal Tissue FLUoxetine (PROzac) capsule 40 mg 40 mg (0.969 mg/kg), Oral, DAILY, First dose on Tue03/19/25 at 1700 $Given 03/21/2025 9:20 AM CDT 40 mg $Given 03/20/2025 11:28 AM CDT 40 mg fluticasone-vilanterol (BREO ELLIPTA) 200-25 MCG/ACT inhaler 1 puff 1 puff, Inhalation, DAILY, First dose on Tue03/19/25 at 1530, This therapy was substituted for Fluticasone furoate/umeclidinium/vilanterol (TRELEGY ELLIPTA) 200-62.5-25 mcg 1 puff Daily when taken with umeclidinium (Incruse Ellipta) 62.5 mcg. Check the dose counter on the inhaler to ensure there are doses remaining before administering. $Given 03/21/2025 8:07 AM CDT 1 puff $Given 03/20/2025 12:13 PM CDT 1 puff $Given 03/19/2025 6:38 PM CDT 1 puff glucagon injection 1 mg 1 mg, Subcutaneous, EVERY 15 MIN PRN, low blood sugar, May repeat x 1 only, Starting on Tue03/19/25 at 1312, May give SQ or IM. ONLY use glucagon IF patient has NO IV access AND is UNABLE to swallow AND blood glucose is LESS than or EQUAL to 50 mg/dL. glucose gel 15-30 g 15-30 g, Oral, EVERY 15 MIN PRN, low blood sugar, Starting on Tue03/19/25 at 1312, Give first dose for initial blood glucose less than 70 mg/dL per the dosing instructions below. If blood glucose at 15 minute rechecks is still less than or equal to 80 mg/dL, continue to administer doses per blood glucose parameters every 15 minutes, as needed, until blood glucose level is at or above 80 mg/dL x 2 consecutive 15 minute checks. Dosing Instructions: ~If patient is conscious and able to swallow and NO enteral tube For initial BG 51-69mg/dL OR 15 minute recheck BG 51- 80 mg/dL - give 15 g For BG less than or equal to 50 mg/dL - give 30 g ~ If Enteral tube For initial BG 51-69mg/dL OR 15 minute recheck BG 51- 80 mg/dL - give apple juice 120 mL (4 oz or 15 g of CHO) via enteral tube For BG less than or equal to 50 mg/dL - Give apple juice 240 mL (8 oz or 30 g of CHO) via enteral tube ~Oral gel is preferable for conscious and able to swallow patient. ~IF gel unavailable or patient refuses may provide apple juice per Enteral tube dosing instructions. Document juice on I and O flowsheet. LORazepam (ATIVAN) tablet 1 mg 1 mg, Oral, EVERY 4 HOURS PRN, anxiety, Starting on Antonella 03/21/25 at 1037 melatonin liquid 5 mg 5 mg (0.121 mg/kg), Per Feeding Tube, AT BEDTIME, First dose on Tue03/20/25 at 2100, For 2 doses $Given 03/20/2025 8:20 PM CDT 5 mg melatonin tablet 5 mg 5 mg (0.121 mg/kg), Oral, AT BEDTIME, First dose on Tue03/22/25 at 2100 miconazole (MICATIN) 2 % powder Topical, 3 TIMES DAILY PRN, other, candidiasis/intertrigo, Starting on Tue03/19/25 at 1312, To skin folds mineral oil-hydrophilic petrolatum (AQUAPHOR) Topical, 2 TIMES DAILY PRN, dry skin, Starting on Tue03/19/25 at 1312, Apply to: body morphine sulfate (ROXANOL) 20 mg/mL (HIGH CONC) soln 5 mg 5 mg, Oral, 2 TIMES DAILY PRN, air hunger, Starting on Tue03/19/25 at 1459, Caution: Solution is 10 times more concentrated than standard solution. Verify dose volume. $Given 03/21/2025 3:59 AM CDT 5 mg $Given 03/20/2025 5:33 PM CDT 5 mg $Given 03/19/2025 5:39 PM CDT 5 mg multivitamin w/minerals (THERA-VIT-M) tablet 1 tablet 1 tablet, Oral, DAILY, First dose on Tue03/20/25 at 0900 $Given 03/21/2025 9:20 AM CDT 1 tablet $Given 03/20/2025 11:27 AM CDT 1 tablet naloxone (NARCAN) injection 0.2 mg 0.2 mg, Intravenous, EVERY 2 MIN PRN, opioid reversal, Starting on Tue03/19/25 at 1532, Administer intravenous route when available and notify provider when administered. For unintended sedation or respiratory depression if all of the below criteria are met: ~ respiratory rate LESS than or EQUAL to 8. ~SaO2 less than 92% and or/end-tidal CO2 is greater than 50. ~ the patient is receiving an opioid, has unintended sedations assessed as RASS (-3), and is currently not on mechanical ventilation. RASS scale moderate (-3) is movement or eye opening to voice but no eye contact. Patient Monitoring Once the patient has demonstrated a response to the naloxone, continue to monitor respiratory rate, depth, oxygen saturation and end-tidal CO2 (if available) every 15 minutes x 2, then every 30 minutes x 2, then every 1 hour x 1 after each naloxone dose. Consider transfer to ICU if patient respiratory parameters have not improved after 4 naloxone doses. naloxone (NARCAN) injection 0.2 mg 0.2 mg, Intramuscular, EVERY 2 MIN PRN, opioid reversal, Starting on Tue03/19/25 at 1532, Administer intramuscular if an intravenous route is not available and notify provider when administered. For unintended sedation or respiratory depression if all of the below criteria are met: ~ respiratory rate LESS than or EQUAL to 8. ~SaO2 less than 92% and or/end-tidal CO2 is greater than 50. ~ the patient is receiving an opioid, has unintended sedations assessed as RASS (-3), and is currently not on mechanical ventilation. RASS scale moderate (-3) is movement or eye opening to voice but no eye contact. Patient Monitoring Once the patient has demonstrated a response to the naloxone, continue to monitor respiratory rate, depth, oxygen saturation and end-tidal CO2 (if available) every 15 minutes x 2, then every 30 minutes x 2, then every 1 hour x 1 after each naloxone dose. Consider transfer to ICU if patient respiratory parameters have not improved after 4 naloxone doses. naloxone (NARCAN) injection 0.4 mg 0.4 mg, Intravenous, EVERY 2 MIN PRN, opioid reversal, Starting on Tue03/19/25 at 1532, Administer intravenous route when available and notify provider when administered. For unintended sedation or respiratory depression if all of the below criteria are met: ~ respiratory rate LESS than or EQUAL to 8. ~ SaO2 less than 92% and or/end-tidal CO2 is greater than 50. ~ the patient is receiving an opioid, has unintended sedation assessed as RASS (-4) or (-5) and patient is currently not on mechanical ventilation. RASS scale (-4) is deep sedation with no response to voice but movement or eye opening to physical stimulation. RASS scale (-5) is unarousable. Patient Monitoring Once the patient has demonstrated a response to the naloxone, continue to monitor respiratory rate, depth, oxygen saturation and end-tidal CO2 (if available) every 15 minutes x 2, then every 30 minutes x 2, then every 1 hour x 1 after each naloxone dose. Consider transfer to ICU if patient respiratory parameters have not improved after 4 naloxone doses. naloxone (NARCAN) injection 0.4 mg 0.4 mg, Intramuscular, EVERY 2 MIN PRN, opioid reversal, Starting on Tue03/19/25 at 1532, Administer intramuscular if an intravenous route is not available and notify provider when administered. For unintended sedation or respiratory depression if all of the below criteria are met: ~ respiratory rate LESS than or EQUAL to 8. ~ SaO2 less than 92% and or/end-tidal CO2 is greater than 50. ~ the patient is receiving an opioid, has unintended sedation assessed as RASS (-4) or (-5) and patient is currently not on mechanical ventilation. RASS scale (-4) is deep sedation with no response to voice but movement or eye opening to physical stimulation. RASS scale (-5) is unarousable. Patient Monitoring Once the patient has demonstrated a response to the naloxone, continue to monitor respiratory rate, depth, oxygen saturation and end-tidal CO2 (if available) every 15 minutes x 2, then every 30 minutes x 2, then every 1 hour x 1 after each naloxone dose. Consider transfer to ICU if patient respiratory parameters have not improved after 4 naloxone doses. nicotine (NICODERM CQ) 14 MG/24HR 24 hr patch 1 patch 1 patch, Transdermal, Administer over 24 Hours, AT BEDTIME, First dose on Tue03/19/25 at 2100, Reminder: Remove previous patch before applying new patch. Avoid heat exposure to application site or surrounding areas. This includes heat from external sources, such as heating pads, electric blankets, or other equipment. $Patch/Med Applied 03/20/2025 8:26 PM CDT 1 patch Right Shoulder $Patch/Med Applied 03/19/2025 8:23 PM CDT 1 patch Left Shoulder ondansetron (ZOFRAN ODT) ODT tab 4 mg 4 mg, Oral, EVERY 6 HOURS PRN, nausea, Starting on Tue03/19/25 at 1500, With dry hands, peel back foil backing and gently remove tablet. Do not push oral disintegrating tablet through foil backing. Administer immediately on tongue and oral disintegrating tablet dissolves in seconds, then swallow with saliva. Liquid not required. $Given 03/21/2025 8:02 AM CDT 4 mg $Given 03/20/2025 5:33 PM CDT 4 mg pantoprazole (PROTONIX) EC tablet 40 mg 40 mg, Oral, EVERY MORNING BEFORE BREAKFAST, First dose on Tue03/20/25 at 0730, DO NOT CRUSH. $Given 03/21/2025 6:35 AM CDT 40 mg $Given 03/20/2025 7:03 AM CDT 40 mg polyethylene glycol (MIRALAX) Packet 17 g 17 g (0.412 g/kg), Per Feeding Tube, DAILY PRN, constipation, Starting on Tue03/20/25 at 1307, 1 Packet = 17 grams. Mix each gram with at least 1/2 ounce (15 mL) of water - 8 ounces for 17 g dose, 4 ounces for 8.5 g dose, 2 ounces for 4 g dose. Follow with the same volume of water. Hold for loose stools unless being administered as part of a bowel prep regimen or bowel clean out. potassium chloride thuan ER (KLOR-CON M20) CR tablet 20 mEq 20 mEq, Oral, 2 TIMES DAILY, First dose on Tue03/19/25 at 2100, DO NOT CRUSH $Given 03/21/2025 9:20 AM CDT 20 mEq $Given 03/20/2025 8:20 PM CDT 20 mEq $Given 03/20/2025 11:27 AM CDT 20 mEq sennosides (SENOKOT) tablet 1 tablet 1 tablet, Oral, 2 TIMES DAILY, First dose on Tue03/19/25 at 2100, Hold for loose stools. $Given 03/21/2025 9:20 AM CDT 1 tablet $Given 03/20/2025 8:20 PM CDT 1 tablet $Given 03/20/2025 11:27 AM CDT 1 tablet thiamine (B-1) tablet 100 mg 100 mg, Oral, DAILY, First dose on Tue03/20/25 at 0900 $Given 03/21/2025 9:19 AM CDT 100 mg $Given 03/20/2025 11:27 AM CDT 100 mg umeclidinium (INCRUSE ELLIPTA) 62.5 MCG/ACT inhaler 1 puff 1 puff, Inhalation, DAILY, First dose on Tue03/19/25 at 1530, This therapy was substituted for Fluticasone furoate/umeclidinium/vilanterol (TRELEGY ELLIPTA) 200-62.5-25 mcg 1 puff Daily when taken with fluticasone furoate/vilanterol (Breo Ellipta) 200-25 mcg. Check the dose counter on the inhaler to ensure there are doses remaining before administering. $Given 03/21/2025 8:09 AM CDT 1 puff $Given 03/20/2025 12:14 PM CDT 1 puff $Given 03/19/2025 6:39 PM CDT 1 puff Inactive Administered Medications - up to 3 most recent administrations Medication Order MAR Action Action Date Dose Rate Site ipratropium - albuterol 0.5 mg/2.5 mg (3mg)/3 mL (DUONEB) neb solution 3 mL 3 mL, Nebulization, EVERY 4 HOURS PRN, wheezing, shortness of breath, cough, Starting on Tue03/19/25 at 1436 $Given 03/19/2025 2:50 PM CDT 3 mLs [id number] (CREON 12) [id number] units per capsule 1 capsule 1 capsule, Per Feeding Tube, ONCE, On Tue03/20/25 at 2200, For 1 dose, Open capsule and add to bicarbonate mix. Once dissolved, flush the mixture into the feeding tube to break up the clog. It may take several minutes for things to dissolve. $Given 03/20/2025 9:46 PM CDT 1 capsule LORazepam (ATIVAN) tablet 1 mg 1 mg, Oral, EVERY 6 HOURS PRN, anxiety, Starting on Tue03/19/25 at 1459 $Given 03/20/2025 7:43 AM CDT 1 mg $Given 03/20/2025 12:40 AM CDT 1 mg $Given 03/19/2025 5:27 PM CDT 1 mg LORazepam (ATIVAN) tablet 1 mg 1 mg, Oral, EVERY 4 HOURS PRN, anxiety, 2nd line anxiety, Starting on Tue03/20/25 at 1239 $Given 03/21/2025 10: 21 AM CDT 1 mg $Given 03/21/2025 4:01 AM CDT 1 mg $Given 03/20/2025 8:20 PM CDT 1 mg sodium bicarbonate half-tab 325 mg 325 mg (7.87 mg/kg), Per Feeding Tube, ONCE, On Tue03/20/25 at 2200, For 1 dose, Thoroughly crush sodium bicarbonate tablet and dissolve in 15 mL sterile water. $Given 03/20/2025 9:47 PM CDT 325 mg documented in this encounter Active and Recently Administered Medications Times are shown in CDT. Scheduled Medication Order 03/19/2025 03/20/2025 03/21/2025 busPIRone (BUSPAR) tablet 30 mg 30 mg, Oral, 2 TIMES DAILY, First dose on Tue03/19/25 at 2099 2012 ($Given - Provider: Maria C Callaway RN) 1126 ($Given - Provider: Cammie Vidales, RAOUL)2019 ($Given - Provider: Maria C Callaway RN) 0920 ($Given - Provider: Anthony Stevens, RN)2100 (Due) enoxaparin ANTICOAGULANT (LOVENOX) injection 30 mg 30 mg, Subcutaneous, EVERY 24 HOURS, First dose on Tue03/19/25 at 2100, Contact provider if platelet count drops by 50% or more after enoxaparin initiation OR if platelet count falls below 50 x 10e3/uL. 2020 ($Given - Provider: Maria C Callaway RN) 2026 ($Given - Provider: Maria C Callaway RN) 2100 (Due) FLUoxetine (PROzac) capsule 40 mg 40 mg (0.969 mg/kg), Oral, DAILY, First dose on Tue03/19/25 at 1700 1728 (Not Given - Provider: Maria C Callaway RN - Reason: Patient/family refused - Comment: Pt states that she took it at the other facility this morning.) 1128 ($Given - Provider: Cammie Vidales RN) 0920 ($Given - Provider: Anthony Stevens, RAOUL) fluticasone-vilanterol (BREO ELLIPTA) 200-25 MCG/ACT inhaler 1 puff(Linked Group 1) 1 puff, Inhalation, DAILY, First dose on Tue03/19/25 at 1530, This therapy was substituted for Fluticasone furoate/umeclidinium/pierce anterol (TRELEGY ELLIPTA) 200-62.5-25 mcg 1 puff Daily when taken with umeclidinium (Incruse Ellipta) 62.5 mcg. Check the dose counter on the inhaler to ensure there are doses remaining before administering. 1838 ($Given - Provider: Maria C Callaway RN) 1213 ($Given - Provider: Cammie Vidales RN) 0807 ($Given - Provider: Anthony Stevens, RAOUL) [id number] (CREON 12) [id number] units per capsule 1 capsule (COMPLETED)(Linked Group 2) 1 capsule, Per Feeding Tube, ONCE, On Tue03/20/25 at 2200, For 1 dose, Open capsule and add to bicarbonate mix. Once dissolved, flush the mixture into the feeding tube to break up the clog. It may take several minutes for things to dissolve. 2145 ($Given - Provider: Paramjit Esquivel RN) melatonin liquid 5 mg 5 mg (0.121 mg/kg), Per Feeding Tube, AT BEDTIME, First dose on Tue03/20/25 at 2100, For 2 doses 2019 ($Given - Provider: Maria C Callaway RN) 2099 (Due) melatonin tablet 5 mg 5 mg (0.121 mg/kg), Oral, AT BEDTIME, First dose on Tue03/22/25 at 2100 multivitamin w/minerals (THERA-VIT-M) tablet 1 tablet 1 tablet, Oral, DAILY, First dose on Tue03/20/25 at 0900 1127 ($Given - Provider: Cammie Vidales RN) 0920 ($Given - Provider: Anthony Stevens RN) nicotine (NICODERM CQ) 14 MG/24HR 24 hr patch 1 patch 1 patch, Transdermal, Administer over 24 Hours, AT BEDTIME, First dose on Tue03/19/25 at 2100, Reminder: Remove previous patch before applying new patch. Avoid heat exposure to application site or surrounding areas. This includes heat from external sources, such as heating pads, electric blankets, or other equipment. 2022 ($Patch/Med Applied - Provider: Maria C Callaway RN) 2024 (Patch/Med Removed - Provider: Maria C Callaway RN)2025 ($Patch/Med Applied - Provider: Maria C Callaway RN) 2025 (Due: Patch/Med Removed - Provider: Maria C Callaway RN)2099 (Due) pantoprazole (PROTONIX) EC tablet 40 mg 40 mg, Oral, EVERY MORNING BEFORE BREAKFAST, First dose on Tue03/20/25 at 0730, DO NOT CRUSH. 0703 ($Given - Provider: Aliya Garcia RN) 0635 ($Given - Provider: Aliya Garcia RN) potassium chloride thuan ER (KLOR-CON M20) CR tablet 20 mEq 20 mEq, Oral, 2 TIMES DAILY, First dose on Tue03/19/25 at 2100, DO NOT CRUSH 2012 ($Given - Provider: Maria C Callaway RN) 112 ($Given - Provider: Cammie Vidales, RAOUL)2019 ($Given - Provider: Maria C Callaway RN) 0920 ($Given - Provider: Anthony Stevens RN)2099 (Due) sennosides (SENOKOT) tablet 1 tablet 1 tablet, Oral, 2 TIMES DAILY, First dose on Tue03/19/25 at 2100, Hold for loose stools. 2012 ($Given - Provider: Maria C Callaway RN) 112 ($Given - Provider: Cammie Vidales RN)2019 ($Given - Provider: Maria C Callaway RN) 0920 ($Given - Provider: Anthony Stevens RN)2099 (Due) sodium bicarbonate half-tab 325 mg (COMPLETED)(Linked Group 2) 325 mg (7.87 mg/kg), Per Feeding Tube, ONCE, On Tue03/20/25 at 2200, For 1 dose, Thoroughly crush sodium bicarbonate tablet and dissolve in 15 mL sterile water. 2146 ($Given - Provider: Paramjit Esquivel RN) thiamine (B-1) tablet 100 mg 100 mg, Oral, DAILY, First dose on Tue03/20/25 at 0900 1127 ($Given - Provider: Cammie Vidales RN) 0919 ($Given - Provider: Anthony Stevens RN) umeclidinium (INCRUSE ELLIPTA) 62.5 MCG/ACT inhaler 1 puff(Linked Group 1) 1 puff, Inhalation, DAILY, First dose on Tue03/19/25 at 1530, This therapy was substituted for Fluticasone furoate/umeclidinium/pierce anterol (TRELEGY ELLIPTA) 200-62.5-25 mcg 1 puff Daily when taken with fluticasone furoate/vilanterol (Breo Ellipta) 200-25 mcg. Check the dose counter on the inhaler to ensure there are doses remaining before administering. 1839 ($Given - Provider: Maria C Callaway RN) 1214 ($Given - Provider: Cammie Vidales RN) 0809 ($Given - Provider: Anthony Stevens RN) PRN Medication Order 03/19/2025 03/20/2025 03/21/2025 acetaminophen (TYLENOL) oral liquid 650 mg(Linked Group 3) 650 mg, Per Feeding Tube, EVERY 4 HOURS PRN, mild pain, Starting on Tue03/19/25 at 1312, Use if no oral route available. Maximum acetaminophen dose from all sources=75 mg/kg/day not to exceed 4 grams/day. acetaminophen (TYLENOL) tablet 650 mg(Linked Group 3) 650 mg, Oral, EVERY 4 HOURS PRN, mild pain, fever, headaches, Starting on Tue03/19/25 at 1312, Maximum acetaminophen dose from all sources = 75 mg/kg/day not to exceed 4 grams/day. albuterol (PROVENTIL) neb solution 2.5 mg 2.5 mg, Nebulization, EVERY 2 HOURS PRN, shortness of breath, wheezing, Starting on Tue03/19/25 at 1458 1915 ($Given - Provider: Mae Appiah, RT) 0752 ($Given - Provider: Shira Soares, RT)1622 ($Given - Provider: Shira Soares, RT) 0737 ($Given - Provider: Lakshmi Peralta, RT) calcium carbonate (TUMS) chewable tablet 500 mg 500 mg, Oral, EVERY 4 HOURS PRN, heartburn, Starting on Tue03/19/25 at 1459 dextrose 50 % injection 25-50 mL(Linked Group 4) 25-50 mL, Intravenous, EVERY 15 MIN PRN, low blood sugar, Administer over 1-5 Minutes, Starting on Tue03/19/25 at 1312, Use if have IV access, BG less than 70 mg/dL and meet dose criteria below: Dose if conscious and alert (or disorientated) and NPO = 25 mL Dose if unconscious / not alert = 50 mL Give first dose for initial blood glucose less than 70 mg/dL. If blood glucose at 15 minute recheck is less than or equal to 80 mg/dL continue to administer carbohydrate treatment every 15 minutes, as needed, based on blood glucose and assessment parameters until blood glucose level is above 80 mg/dL x 2 consecutive 15 minute checks. docusate (COLACE) 50 MG/5ML liquid 100 mg(Linked Group 5) 100 mg, Oral, 2 TIMES DAILY PRN, constipation, Starting on Tue03/19/25 at 1312, Use if no oral route available. Hold for loose stools. 0154 (See Alternative - Provider: Aliya Garcia RN) docusate sodium (COLACE) capsule 100 mg(Linked Group 5) 100 mg, Oral, 2 TIMES DAILY PRN, constipation, Starting on Tue03/19/25 at 1312, Hold for loose stools. 0154 ($Given - Provider: Aliya Garcia RN) glucagon injection 1 mg(Linked Group 4) 1 mg, Subcutaneous, EVERY 15 MIN PRN, low blood sugar, May repeat x 1 only, Starting on Tue03/19/25 at 1312, May give SQ or IM. ONLY use glucagon IF patient has NO IV access AND is UNABLE to swallow AND blood glucose is LESS than or EQUAL to 50 mg/dL. glucose gel 15-30 g(Linked Group 4) 15-30 g, Oral, EVERY 15 MIN PRN, low blood sugar, Starting on Tue03/19/25 at 1312, Give first dose for initial blood glucose less than 70 mg/dL per the dosing instructions below. If blood glucose at 15 minute rechecks is still less than or equal to 80 mg/dL, continue to administer doses per blood glucose parameters every 15 minutes, as needed, until blood glucose level is at or above 80 mg/dL x 2 consecutive 15 minute checks. Dosing Instructions: ~If patient is conscious and able to swallow and NO enteral tube For initial BG 51-69mg/dL OR 15 minute recheck BG 51- 80 mg/dL - give 15 g For BG less than or equal to 50 mg/dL - give 30 g ~ If Enteral tube For initial BG 51-69mg/dL OR 15 minute recheck BG 51- 80 mg/dL - give apple juice 120 mL (4 oz or 15 g of CHO) via enteral tube For BG less than or equal to 50 mg/dL - Give apple juice 240 mL (8 oz or 30 g of CHO) via enteral tube ~Oral gel is preferable for conscious and able to swallow patient. ~IF gel unavailable or patient refuses may provide apple juice per Enteral tube dosing instructions. Document juice on I and O flowsheet. ipratropium - albuterol 0.5 mg/2.5 mg (3mg)/3 mL (DUONEB) neb solution 3 mL (CANCELED) 3 mL, Nebulization, EVERY 4 HOURS PRN, wheezing, shortness of breath, cough, Starting on Tue03/19/25 at 1436 1450 ($Given - Provider: Joyce Carreon, RT) LORazepam (ATIVAN) tablet 1 mg (CANCELED) 1 mg, Oral, EVERY 6 HOURS PRN, anxiety, Starting on Tue03/19/25 at 1459 1727 ($Given - Provider: Maria C Callaway RN) 0040 ($Given - Provider: Aliya Garcia RN)0743 ($Given - Provider: Cammie Vidales, RAOUL) LORazepam (ATIVAN) tablet 1 mg (CANCELED) 1 mg, Oral, EVERY 4 HOURS PRN, anxiety, 2nd line anxiety, Starting on Tue03/20/25 at 1239 1331 ($Given - Provider: Cammie Vidales, RAOUL)2020 ($Given - Provider: Maria C Callaway RN) 0401 ($Given - Provider: Becca Martins RN)1021 ($Given - Provider: Anthony Stevens RN) LORazepam (ATIVAN) tablet 1 mg 1 mg, Oral, EVERY 4 HOURS PRN, anxiety, Starting on Tue03/21/25 at 1037 miconazole (MICATIN) 2 % powder Topical, 3 TIMES DAILY PRN, other, candidiasis/intertrigo, Starting on Tue03/19/25 at 1312, To skin folds mineral oil-hydrophilic petrolatum (AQUAPHOR) Topical, 2 TIMES DAILY PRN, dry skin, Starting on Tue03/19/25 at 1312, Apply to: body morphine sulfate (ROXANOL) 20 mg/mL (HIGH CONC) soln 5 mg 5 mg, Oral, 2 TIMES DAILY PRN, air hunger, Starting on Tue03/19/25 at 1459, Caution: Solution is 10 times more concentrated than standard solution. Verify dose volume. 1739 ($Given - Provider: Maria C Callaway RN) 1733 ($Given - Provider: Maria C Callaway RN) 0359 ($Given - Provider: Becca Martins, RAOUL) naloxone (NARCAN) injection 0.2 mg(Linked Group 6) 0.2 mg, Intravenous, EVERY 2 MIN PRN, opioid reversal, Starting on Tue03/19/25 at 1532, Administer intravenous route when available and notify provider when administered. For unintended sedation or respiratory depression if all of the below criteria are met: ~ respiratory rate LESS than or EQUAL to 8. ~SaO2 less than 92% and or/end-tidal CO2 is greater than 50. ~ the patient is receiving an opioid, has unintended sedations assessed as RASS (-3), and is currently not on mechanical ventilation. RASS scale moderate (-3) is movement or eye opening to voice but no eye contact. Patient Monitoring Once the patient has demonstrated a response to the naloxone, continue to monitor respiratory rate, depth, oxygen saturation and end-tidal CO2 (if available) every 15 minutes x 2, then every 30 minutes x 2, then every 1 hour x 1 after each naloxone dose. Consider transfer to ICU if patient respiratory parameters have not improved after 4 naloxone doses. naloxone (NARCAN) injection 0.2 mg(Linked Group 6) 0.2 mg, Intramuscular, EVERY 2 MIN PRN, opioid reversal, Starting on Tue03/19/25 at 1532, Administer intramuscular if an intravenous route is not available and notify provider when administered. For unintended sedation or respiratory depression if all of the below criteria are met: ~ respiratory rate LESS than or EQUAL to 8. ~SaO2 less than 92% and or/end-tidal CO2 is greater than 50. ~ the patient is receiving an opioid, has unintended sedations assessed as RASS (-3), and is currently not on mechanical ventilation. RASS scale moderate (-3) is movement or eye opening to voice but no eye contact. Patient Monitoring Once the patient has demonstrated a response to the naloxone, continue to monitor respiratory rate, depth, oxygen saturation and end-tidal CO2 (if available) every 15 minutes x 2, then every 30 minutes x 2, then every 1 hour x 1 after each naloxone dose. Consider transfer to ICU if patient respiratory parameters have not improved after 4 naloxone doses. naloxone (NARCAN) injection 0.4 mg(Linked Group 6) 0.4 mg, Intravenous, EVERY 2 MIN PRN, opioid reversal, Starting on Tue03/19/25 at 1532, Administer intravenous route when available and notify provider when administered. For unintended sedation or respiratory depression if all of the below criteria are met: ~ respiratory rate LESS than or EQUAL to 8. ~ SaO2 less than 92% and or/end-tidal CO2 is greater than 50. ~ the patient is receiving an opioid, has unintended sedation assessed as RASS (-4) or (-5) and patient is currently not on mechanical ventilation. RASS scale (-4) is deep sedation with no response to voice but movement or eye opening to physical stimulation. RASS scale (-5) is unarousable. Patient Monitoring Once the patient has demonstrated a response to the naloxone, continue to monitor respiratory rate, depth, oxygen saturation and end-tidal CO2 (if available) every 15 minutes x 2, then every 30 minutes x 2, then every 1 hour x 1 after each naloxone dose. Consider transfer to ICU if patient respiratory parameters have not improved after 4 naloxone doses. naloxone (NARCAN) injection 0.4 mg(Linked Group 6) 0.4 mg, Intramuscular, EVERY 2 MIN PRN, opioid reversal, Starting on Tue03/19/25 at 1532, Administer intramuscular if an intravenous route is not available and notify provider when administered. For unintended sedation or respiratory depression if all of the below criteria are met: ~ respiratory rate LESS than or EQUAL to 8. ~ SaO2 less than 92% and or/end-tidal CO2 is greater than 50. ~ the patient is receiving an opioid, has unintended sedation assessed as RASS (-4) or (-5) and patient is currently not on mechanical ventilation. RASS scale (-4) is deep sedation with no response to voice but movement or eye opening to physical stimulation. RASS scale (-5) is unarousable. Patient Monitoring Once the patient has demonstrated a response to the naloxone, continue to monitor respiratory rate, depth, oxygen saturation and end-tidal CO2 (if available) every 15 minutes x 2, then every 30 minutes x 2, then every 1 hour x 1 after each naloxone dose. Consider transfer to ICU if patient respiratory parameters have not improved after 4 naloxone doses. ondansetron (ZOFRAN ODT) ODT tab 4 mg 4 mg, Oral, EVERY 6 HOURS PRN, nausea, Starting on Tue03/19/25 at 1500, With dry hands, peel back foil backing and gently remove tablet. Do not push oral disintegrating tablet through foil backing. Administer immediately on tongue and oral disintegrating tablet dissolves in seconds, then swallow with saliva. Liquid not required. 1733 ($Given - Provider: Maria C Callaway RN) 0802 ($Given - Provider: Anthony Stevens RN) polyethylene glycol (MIRALAX) Packet 17 g 17 g (0.412 g/kg), Per Feeding Tube, DAILY PRN, constipation, Starting on Tue03/20/25 at 1307, 1 Packet = 17 grams. Mix each gram with at least 1/2 ounce (15 mL) of water - 8 ounces for 17 g dose, 4 ounces for 8.5 g dose, 2 ounces for 4 g dose. Follow with the same volume of water. Hold for loose stools unless being administered as part of a bowel prep regimen or bowel clean out. Linked Groups Order Group 1: fluticasone-vilanterol (BREO ELLIPTA) 200-25 MCG/ACT inhaler 1 puffJump to med 1 puff, Inhalation, DAILY, First dose on Tue03/19/25 at 1530, This therapy was substituted for Fluticasone furoate/umeclidinium/vilanterol (TRELEGY ELLIPTA) 200-62.5-25 mcg 1 puff Daily when taken with umeclidinium (Incruse Ellipta) 62.5 mcg. Check the dose counter on the inhaler to ensure there are doses remaining before administering. And umeclidinium (INCRUSE ELLIPTA) 62.5 MCG/ACT inhaler 1 puffJump to med 1 puff, Inhalation, DAILY, First dose on Tue03/19/25 at 1530, This therapy was substituted for Fluticasone furoate/umeclidinium/vilanterol (TRELEGY ELLIPTA) 200-62.5-25 mcg 1 puff Daily when taken with fluticasone furoate/vilanterol (Breo Ellipta) 200-25 mcg. Check the dose counter on the inhaler to ensure there are doses remaining before administering. Group 2: sodium bicarbonate half-tab 325 mg (COMPLETED)Jump to med 325 mg (7.87 mg/kg), Per Feeding Tube, ONCE, On Tue03/20/25 at 2200, For 1 dose, Thoroughly crush sodium bicarbonate tablet and dissolve in 15 mL sterile water. And uqbrsm-bxsbdmib-ehkdkfn (CREON 12) [id number] units per capsule 1 capsule (COMPLETED)Jump to med 1 capsule, Per Feeding Tube, ONCE, On Tue03/20/25 at 2200, For 1 dose, Open capsule and add to bicarbonate mix. Once dissolved, flush the mixture into the feeding tube to break up the clog. It may take several minutes for things to dissolve. Group 3: acetaminophen (TYLENOL) tablet 650 mgJump to med 650 mg, Oral, EVERY 4 HOURS PRN, mild pain, fever, headaches, Starting on Tue03/19/25 at 1312, Maximum acetaminophen dose from all sources = 75 mg/kg/day not to exceed 4 grams/day. Or acetaminophen (TYLENOL) oral liquid 650 mgJump to med 650 mg, Per Feeding Tube, EVERY 4 HOURS PRN, mild pain, Starting on Tue03/19/25 at 1312, Use if no oral route available. Maximum acetaminophen dose from all sources=75 mg/kg/day not to exceed 4 grams/day. Group 4: glucose gel 15-30 gJump to med 15-30 g, Oral, EVERY 15 MIN PRN, low blood sugar, Starting on Tue03/19/25 at 1312, Give first dose for initial blood glucose less than 70 mg/dL per the dosing instructions below. If blood glucose at 15 minute rechecks is still less than or equal to 80 mg/dL, continue to administer doses per blood glucose parameters every 15 minutes, as needed, until blood glucose level is at or above 80 mg/dL x 2 consecutive 15 minute checks. Dosing Instructions: ~If patient is conscious and able to swallow and NO enteral tube For initial BG 51-69mg/dL OR 15 minute recheck BG 51- 80 mg/dL - give 15 g For BG less than or equal to 50 mg/dL - give 30 g ~ If Enteral tube For initial BG 51-69mg/dL OR 15 minute recheck BG 51- 80 mg/dL - give apple juice 120 mL (4 oz or 15 g of CHO) via enteral tube For BG less than or equal to 50 mg/dL - Give apple juice 240 mL (8 oz or 30 g of CHO) via enteral tube ~Oral gel is preferable for conscious and able to swallow patient. ~IF gel unavailable or patient refuses may provide apple juice per Enteral tube dosing instructions. Document juice on I and O flowsheet. Or dextrose 50 % injection 25-50 mLJump to med 25-50 mL, Intravenous, EVERY 15 MIN PRN, low blood sugar, Administer over 1-5 Minutes, Starting on Tue03/19/25 at 1312, Use if have IV access, BG less than 70 mg/dL and meet dose criteria below: Dose if conscious and alert (or disorientated) and NPO = 25 mL Dose if unconscious / not alert = 50 mL Give first dose for initial blood glucose less than 70 mg/dL. If blood glucose at 15 minute recheck is less than or equal to 80 mg/dL continue to administer carbohydrate treatment every 15 minutes, as needed, based on blood glucose and assessment parameters until blood glucose level is above 80 mg/dL x 2 consecutive 15 minute checks. Or glucagon injection 1 mgJump to med 1 mg, Subcutaneous, EVERY 15 MIN PRN, low blood sugar, May repeat x 1 only, Starting on Tue03/19/25 at 1312, May give SQ or IM. ONLY use glucagon IF patient has NO IV access AND is UNABLE to swallow AND blood glucose is LESS than or EQUAL to 50 mg/dL. Group 5: docusate sodium (COLACE) capsule 100 mgJump to med 100 mg, Oral, 2 TIMES DAILY PRN, constipation, Starting on Tue03/19/25 at 1312, Hold for loose stools. Or docusate (COLACE) 50 MG/5ML liquid 100 mgJump to med 100 mg, Oral, 2 TIMES DAILY PRN, constipation, Starting on Tue03/19/25 at 1312, Use if no oral route available. Hold for loose stools. Group 6: naloxone (NARCAN) injection 0.2 mgJump to med 0.2 mg, Intravenous, EVERY 2 MIN PRN, opioid reversal, Starting on Tue03/19/25 at 1532, Administer intravenous route when available and notify provider when administered. For unintended sedation or respiratory depression if all of the below criteria are met: ~ respiratory rate LESS than or EQUAL to 8. ~SaO2 less than 92% and or/end-tidal CO2 is greater than 50. ~ the patient is receiving an opioid, has unintended sedations assessed as RASS (-3), and is currently not on mechanical ventilation. RASS scale moderate (-3) is movement or eye opening to voice but no eye contact. Patient Monitoring Once the patient has demonstrated a response to the naloxone, continue to monitor respiratory rate, depth, oxygen saturation and end-tidal CO2 (if available) every 15 minutes x 2, then every 30 minutes x 2, then every 1 hour x 1 after each naloxone dose. Consider transfer to ICU if patient respiratory parameters have not improved after 4 naloxone doses. Or naloxone (NARCAN) injection 0.4 mgJump to med 0.4 mg, Intravenous, EVERY 2 MIN PRN, opioid reversal, Starting on Tue03/19/25 at 1532, Administer intravenous route when available and notify provider when administered. For unintended sedation or respiratory depression if all of the below criteria are met: ~ respiratory rate LESS than or EQUAL to 8. ~ SaO2 less than 92% and or/end-tidal CO2 is greater than 50. ~ the patient is receiving an opioid, has unintended sedation assessed as RASS (-4) or (-5) and patient is currently not on mechanical ventilation. RASS scale (-4) is deep sedation with no response to voice but movement or eye opening to physical stimulation. RASS scale (-5) is unarousable. Patient Monitoring Once the patient has demonstrated a response to the naloxone, continue to monitor respiratory rate, depth, oxygen saturation and end-tidal CO2 (if available) every 15 minutes x 2, then every 30 minutes x 2, then every 1 hour x 1 after each naloxone dose. Consider transfer to ICU if patient respiratory parameters have not improved after 4 naloxone doses. Or naloxone (NARCAN) injection 0.2 mgJump to med 0.2 mg, Intramuscular, EVERY 2 MIN PRN, opioid reversal, Starting on Tue03/19/25 at 1532, Administer intramuscular if an intravenous route is not available and notify provider when administered. For unintended sedation or respiratory depression if all of the below criteria are met: ~ respiratory rate LESS than or EQUAL to 8. ~SaO2 less than 92% and or/end-tidal CO2 is greater than 50. ~ the patient is receiving an opioid, has unintended sedations assessed as RASS (-3), and is currently not on mechanical ventilation. RASS scale moderate (-3) is movement or eye opening to voice but no eye contact. Patient Monitoring Once the patient has demonstrated a response to the naloxone, continue to monitor respiratory rate, depth, oxygen saturation and end-tidal CO2 (if available) every 15 minutes x 2, then every 30 minutes x 2, then every 1 hour x 1 after each naloxone dose. Consider transfer to ICU if patient respiratory parameters have not improved after 4 naloxone doses. Or naloxone (NARCAN) injection 0.4 mgJump to med 0.4 mg, Intramuscular, EVERY 2 MIN PRN, opioid reversal, Starting on Tue03/19/25 at 1532, Administer intramuscular if an intravenous route is not available and notify provider when administered. For unintended sedation or respiratory depression if all of the below criteria are met: ~ respiratory rate LESS than or EQUAL to 8. ~ SaO2 less than 92% and or/end-tidal CO2 is greater than 50. ~ the patient is receiving an opioid, has unintended sedation assessed as RASS (-4) or (-5) and patient is currently not on mechanical ventilation. RASS scale (-4) is deep sedation with no response to voice but movement or eye opening to physical stimulation. RASS scale (-5) is unarousable. Patient Monitoring Once the patient has demonstrated a response to the naloxone, continue to monitor respiratory rate, depth, oxygen saturation and end-tidal CO2 (if available) every 15 minutes x 2, then every 30 minutes x 2, then every 1 hour x 1 after each naloxone dose. Consider transfer to ICU if patient respiratory parameters have not improved after 4 naloxone doses. documented in this encounter Care Teams Fire Protection Engineer Relationship Specialty Start Date End Date Jennifer López MD PCP - General Student in organized health care education/training program 04/20/23 Eli Basilio RT Chronic Vessel Builder Respiratory Therapy 02/10/23 documented as of this encounter
--- OUTSIDE RECORDS SUMMARY | 2025-03-19 14:15 | XMS_ITS | Encounter Summary ---
Author Organization [facility] Address [address] [facility] [place] [address] Care Team Providers Care Certified Nurse Midwife Name Role Phone Eli Basilio RT Unavailable Unavailabl Jennifer Quinonez MD Primary Care Provider [phone] Reason for Visit * Auth/Cert (Routine) Specialty Diagnoses / Procedures Referred By Contvic t Referred To Contact Med Surg Diagnoses complex respiratory Yinka Ahmadi MD [address] [place] [address] Phone: tel: fax: [facility] [address] [address] Phone: tel: fax: Referral ID Status Reason Start Date Expiration Date Visits Re quested Visits Authorized [id number] 1 1 Encounter Details Date Type Department Care Team (Late st Contact Info) Description 03/19/2025 2:15 PM CDT Ancillary Procedure [facility] [address] [place] [phone] Yinka Ahmadi MD [address] [place] [address] Social History Tobacco Use Types [...] Answer Date Recorded Do you have housing? (Cher garza is defined as stable permanent housing and does not include staying outside in a car, in a tent, in an abandoned building, in an overnight custodial, or couch-surfing.) Yes 03/19/2025 Are you worried [...] on file documented as of this encounter Plan of Treatment Not on file documented as of this encounter Procedures Procedure Name Priority Date/Time Associated Diagnosis Comments XR ABDOMEN PORT 1 VIEW Routine 03/19/2025 2:25 PM CDT documented in this encounter Results * XR Abdomen Port 1 View (03/19/2025 2:25 PM CDT) Anatomical Region Laterality Modality Abdomen/Pelvis Computed Radiogr aphy 03/19/2025 2:25 PM CDT Impressions 03/19/2025 4:24 PM CDT IMPRESSION: Feeding tube tip in the stomach. Bowel gas within normal limits. Moderate stool burden. Cholecystectomy clips. Narrative 03/19/2025 4:24 PM CDT EXAM: XR ABDOMEN PORT 1 VIEW LOCATION: [facility] DATE: 03/19/2025 INDICATION: Verify tube placement COMPARISON: None. Procedure Note Mariana Lerma MD - 03/19/2025 EXAM: XR ABDOMEN PORT 1 VIEW LOCATION: [facility] DATE: 03/19/2025 INDICATION: Verify tube placement COMPARISON: None. IMPRESSION: Feeding tube tip in the stomach. Bowel gas within normallimits. Moderate stool burden. Cholecystectomy clips. us Yinka Ahmadi MD IMG DIAGNOSTIC IMAGING ORD ERABLES Final Result documented in this encounter Visit Diagnoses Not on filedocumented in this encounter Care Teams Certified Nurse Midwife Relationship Specialty Start Date End Date Jennifer López MD PCP - General Student in organized health care education/training program 04/20/23 Eli Basilio, RT Chronic Sap Abap Developer Respiratory Therapy 02/10/23 documented as of this encounter
--- OUTSIDE RECORDS SUMMARY | 2025-03-20 09:30 | XMS_ITS | Encounter Summary ---
Author Organization [facility] Address [address] [facility] [place] [address] Care Team Providers Care Speech And Hearing Director Name Role Phone Eli Basilio RT Unavailable Unavailabl Jennifer Quinonez MD Primary Care Provider [phone] Reason for Visit * Auth/Cert (Routine) Specialty Diagnoses / Procedures Referred By Leonel t Referred To Contact Med Surg Diagnoses complex respiratory Yinka Ahmadi MD [address] [place] [address] Phone: tel: fax: [facility] [address] [place] [phone] Phone: tel: fax: Referral ID Status Reason Start Date Expiration Date Visits Re quested Visits Authorized [id number] 1 1 Encounter Details Date Type Department Care Team (Late st Contact Info) Description 03/20/2025 9:30 AM CDT Ancillary Procedure [facility] [address] [place] [phone] Garry Solis, VANESSA RUBBER WORKER [address] [facility] [place] [address] Yinka Ahmadi MD [address] [place] [address] Arrived Social History Tobacco Use Types Packs/Day Years [...] in an abandoned building, in an overnight intermediate, or couch-surfing.) Yes 03/19/2025 Are you worried [...] Name Priority Date/Time Associated Diagnosis Comments XR CHEST PORT 1 VIEW Routine 03/20/2025 10:56 AM CDT documented in this encounter Results * XR Chest Port 1 View (03/20/2025 [...] EXAM: XR CHEST PORT 1 VIEW LOCATION: [facility] DATE: 03/20/2025 INDICATION: Respiratory failure COMPARISON: CXRs 08/19/2023 and 08/16/2023 Procedure Note Jonathan Mata MD - 03/20/2025 EXAM: XR CHEST PORT 1 VIEW LOCATION: [facility] DATE: 03/20/2025 INDICATION: Respiratory failure COMPARISON: CXRs 08/19/2023 and 08/16/2023 IMPRESSION: Emphysematous change both lungs. Lungs are otherwise clear.Slight size prominence of the right hilum is probably due to the patient'srelatively shallow inspiration during image acquisition. No visiblepleural fluid. Heart size normal. Garry Solis APRN RUBBER WORKER IMG DIAGNOSTIC IMAGING ORDERABLES Final Result documented in this encounter Visit Diagnoses Not on filedocumented in this encounter Care Teams Speech And Hearing Director Relationship Specialty Start Date End Date Jennifer López MD PCP - General Student in organized health care education/training program 04/20/23 Eli Basilio, RT Chronic Inpatient Coder Respiratory Therapy 02/10/23 documented as of this encounter
--- OUTSIDE RECORDS SUMMARY | 2025-03-21 12:45 | XMS_ITS | Clinical Summary ---
Author Organization [facility] Address [address] [place] [id number] Care Team Providers Care Log Peeler Name Role Phone Robert Riley MD Primary [...] Encounters Date Type Department Care Team Description 03/08/2025 3:00 PM CDT Ancillary Procedure [facility] [address] [place] [address] 03/[facility] [address] [facility] [address] [place] [phone] Otto Kirby MD Questions (patient symptoms) 01/03/2025 Nurse Triage [facility] [address] [facility] [address] [place] [phone] Otto Kirby MD Breathing Problem from Last 3 Months Immunizations Immunization Administration [...] on file Legal Sex Female 5:23 AM [employer] Gender Identity Not on file Sexual Orientation [...] 09/01/2009, Additional history exists COVID-19 vaccine series (2023- season) 2024 09/06/2023, 08/10/2022, 06/21/2021, Additional history [...] Procedure Name Priority Date/Time Associated Diagnosis Comments ECHO TTE COMPLETE WO CONTRAST Routine 03/08/2025 3:37 PM CDT Hypotension Respiratory arrest (HC) LIPID PANEL W REFLEX MEASURED LDL Routine 02/02/2018 11:29 AM CDT Hyperlipidemia, unspecified hyperlipidemia type from Last 3 Months or Most Recently Relevant to Health Maintenance Results * ECHO TTE COMPLETE WO CONTRAST (03/08/2025 3:37 PM CDT) AORTIC VALVE MEAN PG 4 mmHg EJECTION FRACTION 60 % PEAK TR VELOCITY 2.8 m/s LVEDD 4.3 cm Anatomical Region Laterality Modality Ultrasound 03/08/2025 2:43 PM CDT Narrative 03/08/2025 4:22 PM CDT ECHOCARDIOGRAM BIANCA CHAWLA : 1955 69 years Study Date: 03/08/2025 2:43:12 PM Gender: F BP: 123/65 mmHg Height: 163.00 cm BSA: 1.43 m Weight: 43.00 kg Tech: [facility] Referring MD: HAIDER PURI Site: [facility] Reading Location: MOBILE Patient Location: Inpatient. Procedure: 2D, Color Doppler and Spectral Doppler. Indication for study: Hypotension Respiratory arrest (HC) Cardiac Rhythm: With premature ventricular contractions and sinus tachycardia.Study quality: Fair. Final Impressions: 1. Normal left ventricular size, normal wall thickness, normal global systolic function, calculated EF of 60 %. 2. Right ventricular cavity size is normal, global systolic RV function is normal. 3. The aortic valve is trileaflet and calcified, no stenosis and no regurgitation. 4. The inferior vena cava is dilated, respiratory size variation less than 50%. 5. No pericardial effusion. Chamber Sizes and Function Normal left ventricular size, normal wall thickness, normal global systolic function, calculated EF of 60 %. No resting regional wall motion abnormality visualized. False tendon in left ventricular apex - nonpathologic finding. Left atrial size is normal. Left atrial pressure is normal. Right ventricular cavity size is normal, global systolic RV function is normal. The right atrium is normal. Right atrial volume index is 13 ml/m . The pulmonary artery is of normal size and origin. The sinus of Valsalva is normal sized. The ascending aorta is not well visualized. Valves, RV Pressures and Diastolic Function The aortic valve is trileaflet and calcified, no stenosis and no regurgitation. The mitral valve is normal in structure, trace mitral regurgitation. Mild mitral annular calcification is present. Indeterminate pattern of LV diastolic filling. The tricuspid valve is normal in structure, trace tricuspid regurgitation. The tricuspid regurgitant velocity is 2.8 m/s, the estimated right ventricular systolic pressure is 31 mmHg plus right atrial pressure. The pulmonic valve is normal. Trace pulmonary regurgitation. Masses, Effusion, Shunts There is no pericardial effusion. The inferior vena cava is dilated, respiratory size variation less than 50%. No left to right shunting was detected by limited color flow Doppler interrogation of the interatrial septum. MEASUREMENTS AND CALCULATIONS 2-D Measurements and LV Function: LVID (d) 4.3 cm Planimetered EF 60 % LVID (s) 2.8 cm LV FS% (2D) 34 % IVS (d) 0.6 cm LVOT diameter 2.2 cm LVPW (d) 0.7 cm HR 111 bpm Ao Sinus 3.7 cm LA Vol index 19 ml/m2 Ao Sinus ULN 3.6 cm RA Vol index 13 ml/m2 Asc Ao ULN 3.8 cm RV Basal Diam 3.3 cm RV Mid Diam 2.3 cm Diastology: Mitral Tissue Doppler E Peak 0.5 m/s e', Septum 0.08 m/s A Peak 0.6 m/s e', Lateral 0.11 m/s E/A 0.8 E/e' Average 5.12 DT 105 msec Aortic Valve: Vmax 1.3 m/s JENNY (V) 2.57 cm VTI 0.23 m JENNY (I) 2.36 cm LVOT V max 0.9 m/s Max PG 6 mmHg LVOT VTI 0.15 m Mean PG 4 mmHg SV 55 ml Dim Index 0.64 SV index 39 ml/m CO 6.1 l/min CI 4.3 l/min/m Mitral Valve: MVA 7.2 cm MV P 1/2 30 msec Tricuspid Valve and estimated PA pressures: TR Vmax 2.8 m/s TAPSE 1.9 cm TR maxG 31 mmHg Pulmonic Valve: PV Vmax 1.2 m/s . This study was interpreted by an [facility] accredited facility. CC: HIM (med records) [facility], Med/Surg - IP [facility]. Final Procedure Note Ema Palomares MD - 03/08/2025 ECHOCARDIOGRAM BIANCA CHAWLA : 1955 69 years Study Date: 03/08/2025 2:43:12 PM Gender: F BP: 123/65 mmHg Height: 163.00 cm BSA: 1.43 m Weight: 43.00 kg Tech: [facility] Referring MD: HAIDER PURI Site: [facility] Reading Location: MOBILE IP Patient Location: Inpatient. Procedure: 2D, Color Doppler and Spectral Doppler. Indication for study: Hypotension Respiratory arrest (HC) Cardiac Rhythm: With premature ventricular contractions and sinustachycardia.Study quality: Fair. Final Impressions: 1. Normal left ventricular size, normal wall thickness, normal globalsystolic function, calculated EF of 60 %. 2. Right ventricular cavity size is normal, global systolic RV functionis normal. 3. The aortic valve is trileaflet and calcified, no stenosis and noregurgitation. 4. The inferior vena cava is dilated, respiratory size variation lessthan 50%. 5. No pericardial effusion. Chamber Sizes and Function Normal left ventricular size, normal wall thickness, normal globalsystolic function, calculated EF of 60 %. No resting regional wall motionabnormality visualized. False tendon in left ventricular apex -nonpathologic finding. Left atrial size is normal. Left atrial pressure isnormal. Right ventricular cavity size is normal, global systolic RVfunction is normal. The right atrium is normal. Right atrial volume indexis 13 ml/m . The pulmonary artery is of normal size and origin. The sinusof Valsalva is normal sized. The ascending aorta is not well visualized. Valves, RV Pressures and Diastolic Function The aortic valve is trileaflet and calcified, no stenosis and noregurgitation. The mitral valve is normal in structure, trace mitralregurgitation. Mild mitral annular calcification is present. Indeterminatepattern of LV diastolic filling. The tricuspid valve is normal instructure, trace tricuspid regurgitation. The tricuspid regurgitantvelocity is 2.8 m/s, the estimated right ventricular systolic pressure is31 mmHg plus right atrial pressure. The pulmonic valve is normal. Tracepulmonary regurgitation. Masses, Effusion, Shunts There is no pericardial effusion. The inferior vena cava is dilated,respiratory size variation less than 50%. No left to right shunting wasdetected by limited color flow Doppler interrogation of the interatrialseptum. MEASUREMENTS AND CALCULATIONS 2-D Measurements and LV Function: LVID (d) 4.3 cm Planimetered EF 60 % LVID (s) 2.8 cm LV FS% (2D) 34 % IVS (d) 0.6 cm LVOT diameter 2.2 cm LVPW (d) 0.7 cm HR 111 bpm Ao Sinus 3.7 cm LA Vol index 19 ml/m2 Ao Sinus ULN 3.6 cm RA Vol index 13 ml/m2 Asc Ao ULN 3.8 cm RV Basal Diam 3.3 cm RV Mid Diam 2.3 cm Diastology: Mitral Tissue Doppler E Peak 0.5 m/s e', Septum 0.08 m/s A Peak 0.6 m/s e', Lateral 0.11 m/s E/A 0.8 E/e' Average 5.12 DT 105 msec Aortic Valve: Vmax 1.3 m/s JENNY (V) 2.57 cm VTI 0.23 m JENNY (I) 2.36 cm LVOT V max 0.9 m/s Max PG 6 mmHg LVOT VTI 0.15 m Mean PG 4 mmHg SV 55 ml Dim Index 0.64 SV index 39 ml/m CO 6.1 l/min CI 4.3 l/min/m Mitral Valve: MVA 7.2 cm MV P 1/2 30 msec Tricuspid Valve and estimated PA pressures: TR Vmax 2.8 m/s TAPSE 1.9 cm TR maxG 31 mmHg Pulmonic Valve: PV Vmax 1.2 m/s . This study was interpreted by an [facility] accredited facility. CC: HIM (med records) [facility] Med[facility]urg [facility] Final us Haider Puri MD ECHO ORD Final Resu lt * (ABNORMAL) LIPID PANEL W REFLEX MEASURED LDL (02/02/2018 11:29 AM CDT) CHOLESTEROL,TOTAL 241(H) 100 - 199 mg/dL 02/02/2018 12:07 PM CDT [facility] TRIGLYCERIDES 117 <150 mg/dL 02/02/2018 12:07 PM CDT [facility] HDL CHOLESTEROL 81 >40 mg/dL 8 12:07 PM CDT [facility] NON-HDL CHOLESTEROL 160(H) <145 mg/dl 02/02/2018 12:07 PM CDT [facility] CHOL/HDL RATIO 2.98 <4.50 02/02/2018 12:07 PM CDT [facility] LDL CHOLESTEROL 137(H) <=130 mg/dL 02/02/2018 12:07 PM CDT [facility] PROVIDER ORDERED STATUS RANDOM 02/02/2018 12:07 PM CDT [facility] Blood BLOOD SPECIMEN / Unknown Butterfly / Unknown 02/02/2018 11:29 AM CDT 02/02/2018 11:29 AM CDT us Robert Riley MD CHEMISTRY Final Re sult [address] [id number] from Last 3 Months or Most Recently Relevant to Health Maintenance Insurance [facility] MEDICARE ADVANTAGE MR [employer] GOLD CHOICE MR MEDICARE [place] ONLY Care Teams Log Peeler Relationship Specialty Start Date End Date Robert Riley MD [address] [place] [address] PCP - General Family Practice 04/17/22
--- OUTSIDE RECORDS SUMMARY | 2025-03-21 12:46 | XMS_ITS | Clinical Summary ---
Author Organization [place] Address [address] [facility] [place] [address] Care Team Providers Care Carton Packaging Machine Operator Name Role Phone Eli Basilio RT Unavailable Unavailabl Jennifer Quinonez MD Primary Care Provider [phone] Allergies Active Allergy Reactions Criticality Noted Date Comments Bupropion Other (See Comments) Medium 03/19/2025 Increased depression and shaking Cefadroxil Anaphylaxis High 03/19/2025 Erythromycin Other (See Comments) Low 03/19/2025 GI intolerance Medications albuterol (PROAIR HFA/PROVENTIL HFA/VENTOLIN HFA) 108 (90 Base) MCG/ACT inhaler Inhale 2 puffs into the lungs every 6 hours as needed for shortness of breath, wheezing or cough 2024 Discontinue d(Med Rec(No AVS / No eCancel)) cholecalciferol (VITAMIN D3) 1250 mcg (52818 units) capsule Take 1,250 mcg by mouth every 7 days 2024 Discontinue d(Med Rec(No AVS / No eCancel)) FLUoxetine (PROZAC) 40 MG capsule Take 40 mg by mouth daily 2024 Discontinue d(Med Rec(No AVS / No eCancel)) famotidine (PEPCID) 20 MG tablet Take 20 mg by mouth 2 times daily 2024 Discontinue d(Med Rec(No AVS / No eCancel)) fluticasone-salm eterol (ADVAIR) 500-50 MCG/ACT inhaler Inhale 1 puff into the lungs every 12 hours 2024 Discontinue d(Med Rec(No AVS / No eCancel)) ipratropium - albuterol 0.5 mg/2.5 mg/3 mL (DUONEB) 0.5-2.5 (3) MG/3ML neb solution Take 1 vial by nebulization every 6 hours. Suspended tiotropium (SPIRIVA) 18 MCG inhaled capsule Inhale 18 mcg into the lungs daily 2024 Discontinue d(Med Rec(No AVS / No eCancel)) HEMP OIL OR EXTRACT OR OTHER CBD CANNABINOID, NOT MEDICAL CANNABIS, Take 1 Gum by mouth as needed (CBD gummies PRN) 2024 Discontinue d(Med Rec(No AVS / No eCancel)) thiamine (B-1) 100 MG tabletIndication s:COPD exacerbation (H),Severe protein-calorie malnutrition Take 1 tablet (100 mg) by mouth daily 90 tablet 023 Suspended predniSONE (DELTASONE) 10 MG tabletIndication s:COPD exacerbation (H) Take 3 tablets (30 mg) by mouth daily 9 tablet 023 2024 Discontinue d(Med Rec(No AVS / No eCancel)) predniSONE (DELTASONE) 20 MG tabletIndication s:COPD exacerbation (H) Take 1 tablet (20 mg) by mouth daily 18 tablet 023 2024 Discontinue d(Med Rec(No AVS / No eCancel)) predniSONE (DELTASONE) 10 MG tabletIndication s:COPD exacerbation (H) Take 1 tablet (10 mg) by mouth daily 9 tablet 023 2024 Discontinue d(Med Rec(No AVS / No eCancel)) predniSONE (DELTASONE) 5 MG tabletIndication s:COPD exacerbation (H) Take 1 tablet (5 mg) by mouth daily 9 tablet 023 2024 Discontinue d(Med Rec(No AVS / No eCancel)) pantoprazole (PROTONIX) 40 MG EC tabletIndication s:COPD exacerbation (H) Take 1 tablet (40 mg) by mouth every morning (before breakfast) 60 tablet 023 2024 Discontinue d(Med Rec(No AVS / No eCancel)) nicotine (NICODERM CQ) 14 MG/24HR 24 hr patchIndications :COPD exacerbation (H),Encounter for smoking cessation counseling Place 1 patch onto the skin daily 90 patch 023 Suspended Additional Information Patient taking differently:1 patch TransdermalAT BEDTIME, Reported on 03/19/2025 multivitamin w/minerals (THERA-VIT-M) tabletIndication s:COPD exacerbation (H),Severe protein-calorie malnutrition Take 1 tablet by mouth daily 90 tablet 023 Suspended hydrOXYzine (ATARAX) 50 MG tabletIndication s:COPD exacerbation (H),Anxiety Take 1 tablet (50 mg) by mouth every 4 hours 90 tablet 2 023 Suspended Additional Information Patient taking differently:50 mg Oral2 TIMES DAILY PRN, anxiety, Reported on 03/19/2025 gabapentin (NEURONTIN) 100 MG capsuleIndicatio ns:COPD exacerbation (H),Anxiety Take 1 capsule (100 mg) by mouth 2 times daily 60 capsule 1 023 2024 Discontinue d(Med Rec(No AVS / No eCancel)) LORazepam (ATIVAN) 1 MG tabletIndication s:COPD exacerbation (H),Anxiety Take 1 tablet (1 mg) by mouth 2 times daily as needed for anxiety 20 tablet 023 Suspended Additional Information Patient taking differently:1 mg OralEVERY 6 HOURS PRN, anxiety, Reported on 03/19/2025 sennosides (SENOKOT) 8.6 MG tabletIndication s:COPD exacerbation (H) Take 1 tablet by mouth 2 times daily as needed for constipation 60 tablet 023 Suspended Additional Information Patient taking differently:1 tablet Oral2 TIMES DAILY, Reported on 03/19/2025 polyethylene glycol (MIRALAX) 17 GM/Dose powderIndication s:COPD exacerbation (H) Take 17 g (1 Capful) by mouth daily 507 g 023 2024 Discontinue d(Med Rec(No AVS / No eCancel)) nicotine (COMMIT) 2 MG lozengeIndicatio ns:COPD exacerbation (H),Encounter for smoking cessation counseling Place 1 lozenge (2 mg) inside cheek every hour as needed for smoking cessation 90 lozenge 023 2024 Discontinue d(Med Rec(No AVS / No eCancel)) busPIRone (BUSPAR) 10 MG tablet Take 30 mg by mouth 2 times daily. Suspended potassium chloride thuan ER (KLOR-CON M20) 20 MEQ CR tablet Take 20 mEq by mouth 2 times daily. Suspended morphine sulfate (ROXANOL) 20 mg/mL (HIGH CONC) soln Take 5 mg by mouth 2 times daily as needed (air hunger). Suspended albuterol (PROVENTIL) (2.5 MG/3ML) 0.083% neb solution Take 2.5 mg by nebulization every 2 hours as needed for shortness of breath or wheezing. Suspended calcium carbonate (TUMS) 500 MG chewable tablet Take 1 chew tab by mouth every 4 hours as needed for heartburn. Suspended enoxaparin ANTICOAGULANT (LOVENOX) 30 MG/0.3ML syringe Inject 1 mg/kg subcutaneously at bedtime. Suspended omeprazole (PRILOSEC OTC) 20 MG EC tablet Take 20 mg by mouth daily. Suspended ondansetron (ZOFRAN ODT) 4 MG ODT tab Take 4 mg by mouth every 6 hours as needed for nausea. Suspended Fluticasone-Umec lidin-Vilanterol (TRELEGY ELLIPTA) 200-62.5-25 MCG/ACT oral inhaler Inhale 1 puff into the lungs daily. Suspended FLUoxetine (PROZAC) 40 MG capsule Take 40 mg by mouth daily. Suspended Active Problems Problem Noted Date Diagnosed Date Severe malnutrition 02/19/2023 Anxiety 02/19/2023 Hypoxia 02/07/2023 COPD exacerbation 02/07/2023 Encounters Date Type Department Care Team Description 03/20/2025 9:30 AM CDT Ancillary Procedure [facility] [address] [place] [phone] Garry Solis APRN CNP Burningham, Tyson A, MD Arrived 03/19/2025 2:15 PM CDT Ancillary Procedure [facility] [address] [place] [phone] Yinka Ahmadi MD 03/19/2025 12:37 PM CDT - Present Hospital Encounter [facility] Operational Review [facility] [address] [place] [phone] Jermaine Aparicio MD Burningham, Tyson A, MD 01/11/2025 Documentation Only [address] [place] [phone] Jennifer López MD Orders (OXYGEN RENEWAL) from Last 3 Months Immunizations Immunization Administration Dates Next Due COVID-19 MONOVALENT 12+ (Pfizer) 06/21/2021,10/28,10/25/2020 Influenza Vaccine 65+ (Fluzone HD) 08/10/2022,,07/25/2020 Pneumo Conj 13-V (2010&after) 07/12/2018 Pneumococcal 23 valent 07/25/2020 Social History Tobacco Use Types Packs/Day Years Used Date Smoking Tobacco: Every Day Cigarettes 1 53.5 Started: 1971 Smokeless Tobacco: Never Tobacco Cessation:Ready to Q uit: Not Asked; Counseling Given: Not Answered Comments:Seen IP by CTTS on 02/10/2023; patient down to / ppd, see consult note for details. Adolescent [...] in an abandoned building, in an overnight halfway, or couch-surfing.) Yes 03/19/2025 Are you worried [...] Mass Index 15.62 03/19/2025 12:40 PM CDT Plan of Treatment Health Maintenance Due Date Last Done Comments ADVANCE CARE PLANNING 1955 ANNUAL REVIEW OF HM ORDERS 1953 COPD ACTION PLAN [address] CT COLONOGRAPHY 1955 DEXA 1955 FIT 1955 FLEX SIG 1955 MAMMO SCREENING 1953 sDNA (Cologuard) 1955 COLONOSCOPY 1963 COLORECTAL CANCER SCREENING 1963 HEPATITIS C SCREENING 1971 DTAP/TDAP/TD VACCINE (1 - Tdap) 1978 LIPID 1993 ZOSTER VACCINE (1 of 2) 2003 RSV VACCINE (1 - Risk 60-74 years 1-dose series) 2013 FALL RISK ASSESSMENT 2018 MEDICARE ANNUAL WELLNESS VISIT 2018 LUNG CANCER SCREENING 02/09/2024 02/08/2023 COVID-19 VACCINE ( season) 2024 09/06/2023, 08/10/2022, 06/21/2021, Additional history exists PHQ-2 (once per calendar year) 2024 INFLUENZA VACCINE (Season Ended) 2025 09/06/2023, 08/10/2022, 08/10/2021, Additional history exists DIABETES SCREENING 03/20/2028 03/20/2025, 0 03/19/2025, 03/19/2025, Additional history exists PNEUMOCOCCAL VACCINE 50+ YEARS Completed 07/25/2020, 07/12/2018 SPIROMETRY Completed 08/27/2024 HPV VACCINE Aged Out No longer eligi ble based on patient's age to complete this topic MENINGITIS VACCINE Aged Out No longer eligible based on patient's age to complete this topic Procedures * The patient is currently admitted. [...] BY METER Routine 03/19/2025 1:[address] CHEST W/O CONTRAST Routine 02/08/2023 6:46 PM CDT from Last 3 Months or Most Recently Relevant to Health Maintenance Results * Creatinine (03/21/2025 6:18 AM CDT) Only the most recent of2 resultswithin the time period is included. Creatinine 0.62 0.51 - 0.95 mg/dL 03/21/2025 8:26 AM CDT [facility] GFR Estimate >90 >60 mL/min/1.7 3m2 03/21/2025 8:26 AM CDT [facility] Comment:eGFR calculated usin 2020 CKD-EPI equation. Blood STRUCTURE OF LEFT WRIST REGION / Unknown Venipuncture / Unknown 03/21/2025 6:18 AM CDT 03/21/2025 6:37 AM CDT Yinka Ahmadi MD LAB - BLOOD ORDERABLES [facility] al Result [facility] [address] [place] [id number], [facility] * XR Chest Port 1 View (03/20/2025 [...] EXAM: XR CHEST PORT 1 VIEW LOCATION: [facility] DATE: 03/20/2025 INDICATION: Respiratory failure COMPARISON: CXRs 08/19/2023 and 08/16/2023 Procedure Note Jonathan Mata MD - 03/20/2025 EXAM: XR CHEST PORT 1 VIEW LOCATION: [facility] DATE: 03/20/2025 INDICATION: Respiratory failure COMPARISON: CXRs 08/19/2023 and 08/16/2023 IMPRESSION: Emphysematous change both lungs. Lungs are otherwise clear.Slight size prominence of the right hilum is probably due to the patient'srelatively shallow inspiration during image acquisition. No visiblepleural fluid. Heart size normal. Garry Solis RN HOME CARE LACEMAKER IMG DIAGNOSTIC IMAGING ORDERABLES Final Result * Phosphorus (03/20/2025 6:10 AM CDT) Phosphorus 3.4 2.5 - 4.5 mg/dL 03/20/2025 8:10 AM CDT [facility] Blood STRUCTURE OF LEFT UPPER LIMB / Unknown Venipuncture / Unknown 03/20/2025 6:10 AM CDT 03/20/2025 6:43 AM CDT Yinka Ahmadi MD LAB - BLOOD ORDERABLES Fin al Result Performing Organization Address [facility] Co de Phone Number [facility] [address] * Magnesium (03/20/2025 6:10 AM CDT) Magnesium 1.9 1.7 - 2.3 mg/dL 03/20/2025 8:10 AM CDT [facility] Blood STRUCTURE OF LEFT UPPER LIMB / Unknown Venipuncture / Unknown 03/20/2025 6:10 AM CDT 03/20/2025 6:43 AM CDT Yinka Ahmadi MD LAB - BLOOD ORDERABLES Fin al Result Performing Organization Address City/[facility] [address] [facility] Co de Phone Number [facility] [address] [place] [address], [facility] * (ABNORMAL) Basic metabolic panel (03/20/2025 6:10 AM CDT) Sodium 138 135 - 145 mmol/L 03/20/2025 8:10 AM CDT [facility] Potassium 4.6 3.4 - 5.3 mmol/L 03/20/2025 8:10 AM CDT N [facility] Chloride 101 98 - 107 mmol/L 03/20/2025 8:10 AM CDT [facility] Carbon Dioxide (CO2) 31(H) 22 - 29 mmol/L 03/20/2025 8:10 AM CDT [facility] Anion Gap 6(L) 7 - 15 mmol/L 03/20/2025 8:10 AM CDT [facility] Urea Nitrogen 20.1 8.0 - 23.0 mg/dL 03/20/2025 8:10 AM CDT [facility] Creatinine 0.61 0.51 - 0.95 mg/dL 03/20/2025 8:10 AM CDT [facility] GFR Estimate >90 >60 mL/min/1.7 3m2 03/20/2025 8:10 AM CDT [facility] Comment:eGFR calculated us2020 CKD-EPI equation. Calcium 9.2 8.8 - 10.4 mg/dL 03/20/2025 8:10 AM CDT [facility] Glucose 146(H) 70 - 99 mg/dL 03/20/2025 8:10 AM CDT [facility] Blood STRUCTURE OF LEFT UPPER LIMB / Unknown Venipuncture / Unknown 03/20/2025 6:10 AM CDT 03/20/2025 6:43 AM CDT us Yinka Ahmadi MD LAB - BLOOD ORDERABLES Fin al Result N [facility]ORATORY [facility] [address] [place] [address], [facility] * XR Abdomen Port 1 View (03/19/2025 2:25 PM CDT) Anatomical Region Laterality Modality Abdomen/Pelvis Computed Radiogr aphy 03/19/2025 2:25 PM CDT Impressions 03/19/2025 4:24 PM CDT IMPRESSION: Feeding tube tip in the stomach. Bowel gas within normal limits. Moderate stool burden. Cholecystectomy clips. Narrative 03/19/2025 4:24 PM CDT EXAM: XR ABDOMEN PORT 1 VIEW LOCATION: [facility] DATE: 03/19/2025 INDICATION: Verify tube placement COMPARISON: None. Procedure Note Mariana Lerma MD - 03/19/2025 EXAM: XR ABDOMEN PORT 1 VIEW LOCATION: [facility] DATE: 03/19/2025 INDICATION: Verify tube placement COMPARISON: None. IMPRESSION: Feeding tube tip in the stomach. Bowel gas within normallimits. Moderate stool burden. Cholecystectomy clips. us Yinka Ahmadi MD IMG DIAGNOSTIC IMAGING ORD ERABLES Final Result * (ABNORMAL) Comprehensive metabolic panel (03/19/2025 1:21 PM CDT) Sodium 135 135 - 145 mmol/L 03/19/2025 2:37 PM CDT [facility] Potassium 4.7 3.4 - 5.3 mmol/L 03/19/2025 2:37 PM CDT [facility] Carbon Dioxide (CO2) 32(H) 22 - [...] 2:37 PM CDT [facility] Comment:eGFR calculated usin 2020 CKD-EPI equation. Calcium 9.0 8.8 - 10.4 mg/dL 03/19/2025 2:37 PM CDT [facility] Chloride 98 98 - 107 mmol/L 03/19/2025 2:37 PM CDT [facility] Glucose 107(H) 70 - 99 mg/dL 03/19/2025 2:37 PM CDT [facility] Alkaline Phosphatase 76 40 - 150 U/L 03/19/2025 2:37 PM CDT [facility] AST 26 0 - 45 U/L 03/19/2025 2:37 PM CDT [facility] ALT 41 0 - 50 U/L 03/19/2025 2:37 PM CDT [facility] Protein Total 6.5 6.4 - 8.3 g/dL 03/19/2025 2:37 PM CDT [facility] Albumin 3.5 3.5 - 5.2 g/dL 03/19/2025 2:37 PM CDT [facility] Bilirubin Total 0.2 <=1.2 mg/dL 03/19/2025 2:37 PM CDT [facility] Blood STRUCTURE OF LEFT UPPER LIMB / Unknown Venipuncture / Unknown 03/19/2025 1:21 PM CDT 03/19/2025 1:25 PM CDT us Yinka Ahmadi MD LAB - BLOOD ORDERABLES Fin al Result [facility] [address] [place] [address], [facility] * (ABNORMAL) CBC with platelets (03/19/2025 1:21 PM CDT) WBC Count 10.7 4.0 - 11.0 10e3/uL 03/19/2025 1:32 PM CDT [facility] RBC Count 3.37(L) 3.80 - 5.20 10e6/uL 03/19/2025 1:32 PM CDT [facility] Hemoglobin 9.9(L) 11.7 - 15.7 g/dL 03/19/2025 1:32 PM CDT [facility] Hematocrit 31.7(L) 35.0 - 47.0 % 03/19/2025 1:32 PM CDT [facility] MCV 94 78 - 100 fL 03/19/2025 1:32 PM CDT [facility] MCH 29.4 26.5 - 33.0 pg 03/19/2025 1:32 PM CDT [facility] MCHC 31.2(L) 31.5 - 36.5 g/dL 03/19/2025 1:32 PM CDT [facility] RDW 13.4 10.0 - 15.0 % 03/19/2025 1:32 PM CDT [facility] Platelet Count 347 150 - 450 10e3/uL 03/19/2025 1:32 PM CDT [facility] Blood STRUCTURE OF LEFT UPPER LIMB / Unknown Venipuncture / Unknown 03/19/2025 1:21 PM CDT 03/19/2025 1:26 PM CDT us Yinka Ahmadi MD LAB - BLOOD ORDERABLES Fin al Result [facility] [address] * (ABNORMAL) Glucose by meter (03/19/2025 1:03 PM CDT) [facility] GLUCOSE BY METER POCT 109(H) 70 - 99 mg/dL 03/19/2025 1:13 PM CDT [facility] POC Blood, Capillary BLOOD SPECIMEN / Unknown 03/19/2025 1:03 PM CDT 03/19/2025 1:13 PM CDT us Jermaine Aparicio MD LAB - BEAKER POCT Final Result Performing Organization Address City/[facility]/ZIP Co de Phone Number [facility] POC [address] * CT Chest w/o Contrast (02/08/2023 6:46 [...] CDT EXAM: CT CHEST W/O CONTRAST LOCATION: [facility] DATE/TIME: 02/08/2023 6:46 PM CDT [...] demineralization and degenerative changes. Procedure Note Miguel Brandon, DO - 02/08/2023 EXAM: CT CHEST W/O CONTRAST LOCATION: [facility] DATE/TIME: 02/08/2023 6:46 PM CDT INDICATION: Hypoxia. COMPARISON: None. TECHNIQUE: CT chest without IV contrast. Multiplanar reformats wereobtained. Dose reduction techniques were used. CONTRAST: None. FINDINGS: LUNGS AND PLEURA: Moderate emphysema. Mild to moderate bilateral airwaythickening. Mild retained airway debris. Minimal centrilobular wzqirln-ex-bjm nodules bilaterally. No pleural effusion or pneumothorax. MEDIASTINUM/AXILLAE: No adenopathy. Nonaneurysmal aorta. Mild pulmonarytrunk enlargement at 3.2 cm. Normal heart size. No pericardial effusion. CORONARY ARTERY CALCIFICATION: Moderate. UPPER ABDOMEN: Cholecystectomy. MUSCULOSKELETAL: Bony demineralization and degenerative changes. IMPRESSION: 1. Findings of infectious or inflammatory airways disease. Mild tomoderate bilateral airway thickening. Retained airway debris. 2. Minimal infectious / inflammatory centrilobular and zijh-mv-cgncclpjmp. 3. Moderately extensive emphysema. 4. Moderate coronary calcification. 5. Mild pulmonary trunk enlargement; correlate for pulmonaryhypertension. us Brenda Mullins APRN LACEMAKER IMG CT ORDERABLES Final Re sult from Last 3 Months or Most Recently Relevant to Health Maintenance Insurance [facility] MEDICARE Advance Directives For more information, please contact: [phone] * No CPR- Do NOT Intubate (Latest Code Status on File) Date Activated Date Inactivated Comments 03/19/2025 1:12 PM NO basic or ad vanced life-sustaining interventions are performed Question Answer Comments Code status determined by: Discussion with felicity rod/ legal decision maker * Full Code Date Activated Date Inactivated Comments 02/07/2023 7:36 PM 02/18/2023 4:41 PM All basic an d advanced life-sustaining interventions are performed as appropriate Question Answer Comments Code status determined by: Discussion with felicity rod/ legal decision maker Care Teams Carton Packaging Machine Operator Relationship Specialty Start Date End Date Jennifer López MD PCP - General Student in organized health care education/training program 04/20/23 Eli Basilio, RT Chronic Director Of Annual Giving Respiratory Therapy 02/10/23
--- OUTSIDE RECORDS SUMMARY | 2025-03-21 12:46 | XMS_ITS | Clinical Summary ---
Author Organization [facility] Address [address], [place] [address] Care Team Providers Care Group Sales Coordinator Name Role Phone Robert Riley MD Primary Care Provider [phone] Source Comments You are receiving this document [...] for each transition of care or referral. [employer] Allergies Active Allergy Reactions Criticality Noted Date Comments Cefadroxil Respiratory Distress High 11/21/2006 Erythromycin Gastrointestinal 01/05/2018 Medications ALBUterol sulfate HFA 108 (90 Base) MCG/ACT inhaler Inhale 2 Puffs every 4 hours as needed for Wheezing or Shortness of Breath. Every 4-6 hours as needed Active cholecalciferol (VITAMIN D3) 1.25 MG (94748 UT) capsule Take 1 Capsule (50,000 Units) [...] daily. 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 Gender Identity Not on file Sexual Orientation Not on file Last Filed Vital Signs Vital Sign Reading Time Taken Comments Blood Pressure 87/51 08/23/2023 1:53 PM CYCLE MANAGER Pulse 95 08/23/2023 1:53 PM CYCLE MANAGER Temperature 36.6 C (97.8 F) 08/20/2023 7:30 AM CYCLE MANAGER Respiratory Rate 18 08/20/2023 7:30 AM CYCLE MANAGER Oxygen Saturation 97% 08/23/2023 1:53 PM CYCLE MANAGER Inhaled Oxygen Concentration - - Weight 51.8 kg (114 lb 3.2 oz) 08/23/2023 1:53 P M CYCLE MANAGER Height 162.6 cm (5' 4) 08/23/2023 1:53 PM CYCLE MANAGER Body Mass Index 19.6 08/23/2023 1:53 PM CYCLE MANAGER Plan of Treatment Health Maintenance Due Date [...] 12:32 AM 08/20/2023 4:11 PM Care Teams Group Sales Coordinator Relationship Specialty Start Date End Date Robert Riley MD [address] [facility] [place] [address] PCP - General Family Practice 08/16/23
--- OUTSIDE RECORDS SUMMARY | 2025-03-22 00:37 | XMS_ITS | Clinical Summary ---
Author Organization [employer] [facility] Address [address] [place] [address] Care Team Providers Care Multimedia Services Coordinator Name Role Phone Robert Riley MD [...] Description 03/08/2025 3:00 PM CDT Ancillary Procedure [facility] [address] [place] [address] 03/07/2025 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 This study was interpreted by an [facility] accredited facility. CC: HIM (med records) [facility], Med/Surg - IP [facility]. Final Procedure Note Ema Palomares MD - 03/08/2025 ECHOCARDIOGRAM BIANCA CHAWLA : 1955 69 years Study Date: 03/08/2025 2:43:12 PM Gender: F BP: 123/65 mmHg Height: 163.00 cm BSA: 1.43 m Weight: 43.00 kg Tech: [facility] Referring MD: HAIDER PURI Site: [facility] Reading Location: MOBILE IP Patient [...] [facility] accredited facility. CC: HIM (med records) [facility] Final us Haider Puri MD ECHO ORD Final Resu lt * (ABNORMAL) LIPID PANEL W REFLEX MEASURED LDL (02/02/2018 11:29 AM CDT) CHOLESTEROL,TOTAL 241(H) 100 - 199 mg/dL 02/02/2018 12:07 PM CDT [facility] TRIGLYCERIDES 117 <150 mg/dL 02/02/2018 12:07 PM CDT [facility] HDL CHOLESTEROL 81 >40 mg/dL 8 12:07 PM CDT [facility] NON-HDL CHOLESTEROL 160(H) <145 mg/dl 02/02/2018 12:07 PM CDT [facility] CHOL/HDL RATIO 2.98 <4.50 02/02/2018 12:07 PM CDT [facility] LDL CHOLESTEROL 137(H) <=130 mg/dL 02/02/2018 12:07 PM CDT [facility] PROVIDER ORDERED STATUS RANDOM 02/02/2018 12:07 PM CDT [facility] Blood BLOOD SPECIMEN / Unknown Butterfly / Unknown 02/02/2018 11:29 AM CDT 02/02/2018 11:29 AM CDT us Robert Riley MD CHEMISTRY Final Re sult [address] [address] from Last 3 Months or Most Recently Relevant to Health Maintenance Insurance [facility] MEDICARE ADVANTAGE MR [employer] GOLD CHOICE MR MEDICARE PB ONLY Care Teams Multimedia Services Coordinator Relationship Specialty Start Date End Date Robert Riley MD [address] [place] [address] PCP - General Family Practice 04/17/22
--- OUTSIDE RECORDS SUMMARY | 2025-03-22 00:37 | XMS_ITS | Clinical Summary ---
Author Organization [facility] Address [address], [place] [address] Care Team Providers Care Manager Business Operations Name Role Phone Robert Riley MD Primary Care Provider Source Comments You are receiving this document [...] for each transition of care or referral. [employer]ors Allergies Active Allergy Reactions Criticality Noted Date Comments Cefadroxil Respiratory Distress High 11/21/2006 Erythromycin Gastrointestinal 01/05/2018 Medications ALBUterol sulfate HFA 108 (90 Base) MCG/ACT inhaler Inhale 2 Puffs every 4 hours as needed for Wheezing or Shortness of Breath. Every 4-6 hours as needed Active cholecalciferol (VITAMIN D3) 1.25 MG (10692 UT) capsule Take 1 Capsule (50,000 Units) [...] daily. 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 Gender Identity Not on file Sexual Orientation Not on file Last Filed Vital Signs Vital Sign Reading Time Taken Comments Blood Pressure 87/51 08/23/2023 1:53 PM EXTENSION SERVICE SPECIALIST Pulse 95 08/23/2023 1:53 PM EXTENSION SERVICE SPECIALIST Temperature 36.6 C (97.8 F) 08/20/2023 7:30 AM EXTENSION SERVICE SPECIALIST Respiratory Rate 18 08/20/2023 7:30 AM EXTENSION SERVICE SPECIALIST Oxygen Saturation 97% 08/23/2023 1:53 PM EXTENSION SERVICE SPECIALIST Inhaled Oxygen Concentration - - Weight 51.8 kg (114 lb 3.2 oz) 08/23/2023 1:53 P M EXTENSION SERVICE SPECIALIST Height 162.6 cm (5' 4) 08/23/2023 1:53 PM EXTENSION SERVICE SPECIALIST Body Mass Index 19.6 08/23/2023 1:53 PM EXTENSION SERVICE SPECIALIST Plan of Treatment Health Maintenance Due Date [...] 12:32 AM 08/20/2023 4:11 PM Care Teams Manager Business Operations Relationship Specialty Start Date End Date Robert Riley MD [address] [facility] [place] [address] PCP - General Family Practice 08/16/23
== END 2025-03-19 11:16 | disposition home or self-care (01) ==
PROVIDERS: PCP Family Medicine; Visit Provider Family Medicine
DX: J96.21 Acute and chronic respiratory failure with hypoxia (principal); J44.9 Chronic obstructive pulmonary disease, unspecified; E43 Unspecified severe protein-calorie malnutrition; J18.9 Pneumonia, unspecified organism
CPT/HCPCS: A0425; A0434

== ENCOUNTER 2025-04-02 16:18 | Outpatient (CLI) | payer MEDICARE, SELFPAY | END 2025-04-02 16:19 | disposition home or self-care (01) | PROVIDERS: PCP Family Medicine; Visit Provider Family Medicine | DX: I27.20 Pulmonary hypertension, unspecified (principal); D63.8 Anemia in other chronic diseases classified elsewhere; R89.9 Unspecified abnormal finding in specimens from other organs, systems and tissues | CPT/HCPCS: 80048; 83735; 85025 ==